=== PATIENT | female | born 1950 | race Caucasian/White ===

== ENCOUNTER 2021-11-03 13:44 | Outpatient (CLI) | payer MEDICARE, BC, SELFPAY ==
[2021-11-03 11:39] LABS: Albumin* 3.8 g/dL (3.3-5.0); Chloride* 100 mmol/L (96-114)
[2021-11-03 11:40] LABS: Potassium* 5.3 mmol/L (3.6-5.1); Sodium* 137 mmol/L (135-149)
[2021-11-03 11:42] LABS: Aspartate Amino Transferase* 21 U/L (12-35); Bilirubin Total* 0.3 mg/dL (0.1-1.5); Blood Urea Nitrogen* 16 mg/dL (7-30); Carbon Dioxide* 30 mmol/L (20-32); Cholesterol* 175 mg/dL (90-199); Creatinine* 0.9 mg/dL (0.5-1.5); Estimated Glomerular Filt Rate 69 ml/min; Glucose* 111 mg/dL (60-115); Total Protein* 6.7 g/dL (6.0-8.3)
[2021-11-03 11:43] LABS: Alanine Aminotransferase* 16 U/L (4-35); Alkaline Phosphatase* 100 U/L (40-150); Calcium* 9.4 mg/dL (8.4-10.6); HDL Cholesterol* 52 mg/dL (>=50); LDL Cholesterol Calculated 102 mg/dL (<100); Triglycerides* 106 mg/dL (40-149)
== END 2021-11-03 13:45 | disposition home or self-care (01) ==
PROVIDERS: PCP Family Medicine; Visit Provider Family Medicine
DX: Z01.419 Encounter for gynecological examination (general) (routine) without abnormal findings (principal); E03.9 Hypothyroidism, unspecified; E78.5 Hyperlipidemia, unspecified; E66.01 Morbid (severe) obesity due to excess calories; R73.01 Impaired fasting glucose; R53.83 Other fatigue
CPT/HCPCS: 80053; 80061; 84443

== ENCOUNTER 2022-02-10 11:49 | Outpatient (CLI) | payer MEDICARE, BC, SELFPAY ==
--- OUTSIDE RECORDS SUMMARY | 2022-02-10 09:54 | XMS_ITS | Continuity of Care Document ---
:1950 Author Organization [facility] Address [address] [address] [place] [address] Phone Care Team Providers Name Role Phone Alexi Lobato MD Unavailable Unavailable Medications Medication Instructions Dosage Effective Status Comments Dates (start - stop) Flovent HFA 44 inhale 1 puff 44 MCG - Active mcg/actuation (44MCG) by Aerosol Inhaler inhalation route 2 times every day ProAir HFA 90 take by Inhalation Not Available - Active mcg/actuation route prn Aerosol Inhaler azelastine 137 mcg spray 1 spray by 1 spray - Active Nasal [place] Aerosol intranasal route 2 times every day in each nostril Windy 180 mg take 1 tablet - Active tablet (180MG) by oral route every day tramadol 50 mg take 1 Tablet 50 MG - Active tablet (50MG) by ORAL route every 6 hours as needed Tylenol PM Extra take 1 Tablet by 1 Tablet - Active Strength 25 mg-500 oral route every mg tablet day at bedtime clonazepam 1 mg take 1.5 Tablet 1.5 MG - Active tablet (1.5MG) by oral route every day simvastatin 10 mg take 1 tablet 10 MG - Active tablet (10MG) by oral route every day in the evening mirtazapine 30 mg take 1 by Oral 1 - Active tablet route every day azelastine 0.05 % instill 1 drop by 1 drop - Active Eye Drops ophthalmic route 2 times every day as needed levothyroxine 137 take 1 tablet 137 MCG - Active mcg tablet (137MCG) by oral route every day Centrum Complete 18 take 1 tablet by 1.00 tablet - Active mg-400 mcg tablet oral route every day with food Citrucel 500 mg take 1 by Oral 1 - Active tablet route every day Vitamin C 500 mg take 1 by Oral 1 - Active chewable tablet route every day ferrous sulfate 325 take 1 tablet 325 MG - Active mg (65 mg iron) (325MG) by ORAL tablet route 3 times every day vitamin E 400 unit take 1 Capsule by 1 Capsule - Active capsule Oral route every day flaxseed oil 1,000 take 1 by Oral 1 - Active mg capsule route every day lptcuyx-paiiymjfw-z take 1 by Oral 1 - Active inc 333 mg-133 mg-5 route every day mg tablet Vitamin D3 400 unit take 1 by Oral 1 - Active capsule route every day omeprazole 20 mg take 1 capsule 20 MG - Active capsule,delayed (20MG) by ORAL release route 2 times every day before a meal CIPRODEX 0.3 %-0.1 instill 4 drop by 4 drop - No Long er % Ear Drops, Susp otic route 2 times Active every day as needed Procedures Procedure Date Ugi Endo; W/bx 1/mx Level Iv-surg Path Gross/micro Colonoscopy Flex; Dx (nov Pro) Ugi Endo; W/bx 1/mx Advance Directives Directive Yes / No Effective Date File Name No Information Encounters Encounter Practice Location Reason(s) Diagnoses Date Provider Provide rs Description For Visit Copied on Encounter [facility] [place] No Luis Alfredo [facility] Information 2-[address] [facility], [address] [address], [address] [place], [facility] [address], [place], [place], [place] [id number], , [place], [place] [id number], tel:[phone]. [phone] tel:[phone] [facility] [place] Gastric/antra Luis Alfredo CUMMINS Ref erring Digestive [facility] l Ulcer [address] Alexi. Provider: [facility], Endoscopy Unspec[facility]op [address] Ulcer W/o [place] MD Singh, [address] [address], [place] [facility] [address], [place], [place], [facility], [address] [id number], Reflux , [place], [place], [place] [id number], [place], [address]. tel:+57 Ulcer W/o [place]. tel:[phone] Bleed tel:[phone] [facility] [place] [facility] Family Hx Nov-0 Walker [facility] Referring Digestive Endoscopy Colon 1 [place]. Provider: [facility], [place] [facility] [address] [facility] [address], [facility] [place], [place], [address] [place] [address], [place], [place], [place] [address] [id number], , [place], [address], [facility] [id number], [place], [address]. tel:+ [place]. tel:[phone] tel:[phone] [facility] [place] No Sep-0 No Referring [facility] Information 7-200 Information Provid er: [facility], [place] [address] [address] [facility] [address], MD Singh, [address] [place], [place], [address] [id number], [facility], [facility], [address]. tel:+ tel:[phone] Family History Family Member Type Diagnosis Age At Onset No Information Payers Payer name Insurance type Covered alliance party ID Authorization(s ) [facility] [id number] Social History Type Description Quantity Date Captured Comments Sex Female Smoking Status No Information Chief Complaint And Reason For Visit No Information Reason For Referral Reason For Referral No Information Plan Of Treatment Date Type Action Status No Information History Of Present Illness Encounter Date Complaint History Of Present I llness No Information Functional Status Date Functional Assessment No Information Instructions Date Instruction Additional Informati on No Information Assessments Type Assessment Date No Information Patient Care Teams Name Effective Dates (start - stop) Status M embers No Information
[2022-02-10 12:02] LABS: Ferritin* 43.5 ng/mL (11.1-264.0)
[2022-02-10 12:16] LABS: Vitamin B12* 608 pg/mL (243-894)
== END 2022-02-10 11:50 | disposition home or self-care (01) ==
PROVIDERS: PCP Family Medicine; Visit Provider Family Medicine
DX: G25.81 Restless legs syndrome (principal); G62.9 Polyneuropathy, unspecified; E66.01 Morbid (severe) obesity due to excess calories; Z68.41 Body mass index [BMI] 40.0-44.9, adult; E78.5 Hyperlipidemia, unspecified; E03.9 Hypothyroidism, unspecified; G47.33 Obstructive sleep apnea (adult) (pediatric); F33.42 Major depressive disorder, recurrent, in full remission; Z13.0 Encounter for screening for diseases of the blood and blood-forming organs and certain disorders involving the immune mechanism
CPT/HCPCS: 82607; 82728

== ENCOUNTER 2022-02-13 12:05 | Outpatient (CLI) | payer MEDICARE, BC, SELFPAY ==
--- OUTSIDE RECORDS SUMMARY | 2022-02-13 12:09 | XMS_ITS | Clinical Summary ---
:1950 Author Organization [employer] Address [address] [place] [address] Care Team Providers Name Role Phone Delphine Batista MD Primary Care Provider [phone] Source Comments You are receiving this document as you are listed as the primary care provider,follow-up provider, or the patient has been referred to you for consultation.This is in compliance with the Medicare and Medicaid EHR Incentive Program,which states Providers who transition their patient to another setting of careor provider of care or refers their patient to another provider of care shouldprovide summarycare record for each transition of care or referral. [employer] Allergies Active Allergy Reactions Severity Noted Date Comments Dust Other, see comments 01/15/2021 Sinus is sues Molds & Smuts Cough 01/15/2021 Sinus issues Other Other, see comments 01/15/2021 Perfumes - eyes water, cough Cat dander - si nus issues Pollen Extract Cough 01/15/2021 Medications Medication Sig Dispensed Refills Start Date End Date Status BUDEPRION XL 300 MG 1 tablet daily 0 Active OR TB24 ASTELIN 137 MCG/SPRAY 2 sprays in the 0 Active NA SOLN morning PROAIR HFA 108 (90 Inhale 2 puffs by 0 Active BASE) MCG/ACT IN AERS mouth every 4-6 hours as needed for breathing difficulties. Do not use more than 12 puffs in 24 hours. TYLENOL PM EXTRA 1 tablet daily 0 Active STRENGTH 500-25 MG OR TABS FLUTICASONE 1 spray twice daily 0 Active PROPIONATE HFA 44 MCG/ACT IN AERO cholecalciferol Take 1 tablet by 0 03/09/2012 Active (VITAMIND3) 2000 mouth daily (every UNITS tablet 24 hours). Indications: PREVENTION OF VITAMIN D DEFICIENCY estrogens, conjugated Insert 1 0 09/18/2013 Active (PREMARIN) 0.625 Applicatorful MG/GM vaginal cream vaginally. oxybutynin Take 10 mg by 0 Activ e (DITROPANXL) 10 MG 24 mouth. hour release tablet Zinc Acetate 25 MG Take 50 mg by 0 Active mouth. Famotidine-Ca Chew and swallow 1 0 10/28/2019 Active Carb-Mag Hydrox Tablet by mouth 10-800-165 MG daily. fexofenadine 0 2019 Active (CECI) 180 MG tablet guaiFENesin (MUCINEX) Take 600 mg by 0 01/13/2021 Active 600 MG 12 hour mouth at bedtime as release tablet needed. Melatonin 5 MG 0 01/13/2021 Acti ve triamcinolone 0 10/28/2019 Activ e (NASACORT AQ) 55 MCG/ACT nasal inhaler mirtazapine (REMERON) 0 12/25/2020 Active 45 MG tablet rOPINIRole (REQUIP) 2 0 01/02/2021 Active MG tablet simvastatin (ZOCOR) 0 12/25/2020 Active 20 MG tablet levothyroxine Take 150 mcg by 0 Active (SYNTHROID) 150 MCG mouth daily. tablet omeprazole (PRILOSEC) Take 1 Capsule (20 90 Capsule 0 10/02/19 22 Active 20 MG capsule mg) by mouth daily. Take 1 hour before a meal. Active Problems Patient Care Coordination Note Formatting of this note might be differe nt from the original. Interactive with Asthma Disease Manageme nt Program: , opt #5, for COPD and Ast hma Problem Noted Date Complication of gastric banding 07/23/2021 Overview: Added automatically from request for lauren saldivar [id number] Dysphagia 07/23/2021 Overview: Added automatically from request for lauren saldivar [id number] Depressive disorder 02/09/2021 Hypothyroidism 02/09/2021 Morbid obesity with BMI of 40.0-44.9, adult 11/06/2015 LAP-BAND surgery status 05/14/2009 Overview: Laparoscopic adjustable gastric band, AP S Removal of adjustable gastric band and a ll it's components - 09/30/2021 Sleep apnea 05/09/2009 Overview: LW Modifier: Severe, AHI 73/hour ; Obstructive Sleep Apnea Hypopnea Resolved Problems Problem Noted Date Resolved Date Obesity 03/09/2012 11/06/2015 Morbid obesity 05/14/2009 03/09/2012 Overview: Obesity Morbid Social History Tobacco Use Types Packs/Day Years Used Date Smoking Tobacco: Never Smokeless Tobacco: Never Alcohol Use Standard Drinks/Week Comments Not Currently 0 (1 standard drink = 0.6 oz pure alcoho l) occasionally Sex Assigned at Date Recorded Female 01/13/2021 5:27 PM CDT Last Filed Vital Signs Vital Sign Reading Time Taken Comments Blood Pressure 126/71 10/01/2021 10:06 AM CDT Pulse 68 10/01/2021 10:06 AM CDT Temperature 36.7 ??C (98 ??F) 10/01/2021 5:49 AM CDT Respiratory Rate 18 10/01/2021 5:49 AM CDT Oxygen Saturation 91% 10/01/2021 10:06 AM CDT Inhaled Oxygen Concentration - - Weight 117.9 kg (260 lb) 10/07/2021 7:51 AM CDT Height 165.1 cm (5' 5) 10/07/2021 7:51 AM CDT Body Mass Index 43.27 10/07/2021 7:51 AM CDT Plan of Treatment Health Maintenance Due Date Last Done Comments Hep C Screening (Preventive 1950 Services) Medicare Annual Wellness 1950 Visit COVID-19 Vaccine (#1) 03/30/1951 Mammogram 09/18/2014 09/18/2013 Cholesterol 05/09/2015 05/09/2010, 10/24/2009 Dexa 2017 Colonoscopy 02/16/2021 02/16/2011 Pneumococcal 65+ Yrs (3) 10/02/2021 10/05/2017, 10/02/2016 Influenza (#1) 2021 12/05/2020, 12/06/2019, 01/23/2019, Additional history exists DTaP/Tdap/Td (3 - Tdap) 10/18/2028 10/18/2018, 04/23/2008 Zoster/Shingles Completed 05/08/2019, 01/30/2019, 02/25/2017, Additional history exists HepA Aged Out No longer eligib le based on patient 's age to complete this topic HepB Aged Out No longer eligib le based on patient 's age to complete this topic Hib Aged Out No longer eligib le based on patient 's age to complete this topic IPV (Polio) Aged Out No longer eligib le based on patient 's age to complete this topic MCV4 Aged Out No longer eligib le based on patient 's age to complete this topic Medical Devices Implanted Type Area Switchboard Clerk Device Shelf Model / Identifier Expiration Date Ser ial / Lot Mesh Bio-A - [id number] DEVICE [employer] 09/05/2023 [id number] / Implanted: Qty: 1 on 09/30/2021 by Devon Cool MD at [facility] / [id number] Insurance Payer Benefit Plan / Subscriber ID Effective Dates Phone Addre ss Type Group MEDICARE MEDICARE [id number] 2017-Presen [phone] [facility] MANAGED CARE t 67 BCBS BCBS BCBS [place] [id number] 2021-Presen [phone] [address] [address] Medicare BLUE t 67 [place] [address] Rosales, Personal/Family Self 1950 [id number] ([address]) [phone] [place], [place] ([place]) [address] Rosales, Personal/Family Self 1950 [id number] [facility] ([place] [place] [address] Advance Directives Latest Code Status on File Code Status Date Activated Date Inactivated Comments Full Code 09/30/2021 12:30 PM 10/01/2021 12:49 PM Care Teams Jet Engine Mechanic Relationship Specialty Start Date End Date Delphine Batista MD PCP - General Family Practice 09/30/211999 [place] [address]
--- OUTSIDE RECORDS SUMMARY | 2022-02-13 12:09 | XMS_ITS | Encounter Summary ---
:1950 Author Organization [employer] Address [address] [place] [address] Care Team Providers Name Role Phone Delphine Batista MD Primary Care Provider [phone] Reason for Visit Reason Comments Follow-up One week S/P Lap Band Remova l Encounter Details Date Type Department Care Team Description 10/07/2021 Telemedicine [facility] Bariatric Sheba Cortez Status [facility] bariatric Surgery & Weight Samantha, surface logging systems logger (Pr imary Dx) Center [address] [place] [address], [address] [place] [address] Social History Tobacco Use Types Packs/Day Years Used Date Smoking Tobacco: Never Smokeless Tobacco: Never Alcohol Use Standard Drinks/Week Comments Not Currently 0 (1 standard drink = 0.6 oz pure alcoho l) occasionally Sex Assigned at Date Recorded Female 01/13/2021 5:27 PM CDT documented as of this encounter Last Filed Vital Signs Vital Sign Reading Time Taken Comments Blood Pressure - - Pulse - - Temperature - - Respiratory Rate - - Oxygen Saturation - - Inhaled Oxygen Concentration - - Weight 117.9 kg (260 lb) 10/07/2021 7:51 AM CDT Height 165.1 cm (5' 5) 10/07/2021 7:51 AM CDT Body Mass Index 43.27 10/07/2021 7:51 AM CDT documented in this encounter Patient Instructions Patient InstructionsSheba Cortez RN - 10/07/2021 7:52 AM CDT Congratulations on your many successes and keep up the hard work! Continue discharge medications as ordered. Follow instructions located on the after visit summary given to you when you were discharged from the hospital. Continue to work toward your protein goals. You will not be able to get your protein needs met due to small food volumes so you must include protein supplements as instructed to meet your goal. Continue pushing fluids to 48-64 ounces daily. -If you are experiencing nausea, this may be related to dehydration. Contact your provider and discuss. Keep incisions clean and dry after washing daily with soap and water. Some abdominal bruising is normal. Notify your provider if you're bruising increases or if you notice signs of an infection (reviewed today). Increase activity as tolerated to a goal of 30 minutes daily, 5 times per week as your stamina and endurance permit. Refer to your care guide often as resource. Verify you have your scheduled appointments with the dietitian and RN before after your visit today. A reminder: No non-urgent surgical procedures or long distance travel within 30 days of weight loss surgery. No lifting over 20 lbs for minimum 4 weeks. fSupport Group: Live virtual support groups are now available. To join our e-mail distribution list and receive updates on date, time, and topics of the support group send us an e-mail at [email or web address]. Call with questions. Sheba Cortez RN 7:51 AM 10/07/2021 documented in this encounter Progress Notes Sheba Cortez RN - 10/07/2021 10:30 AM CDT Pt S/P Adjustable Gastric Band removal and Hiatal Hernia Repair on 09/30/[address] Cool. Pt reports she has been tolerating fluids without difficulty this past week; advanced to soft/mashed foods today. She reports she was able to eat eggs for breakfast with no difficulty. Incisions inspected; all CDI with dermabond intact as well. No redness, swelling noted to incisional areas. Pt reports that roshan had some L shoulder pain/discomfort when up/active. Discussed with pt, referred pain from her hernia repair. Recommended that pt slow down her activity, should she feel the L shoulder pain. Pt denies any N/V since surgery, and no reports of elevated temp at this time. Discussed with pt MWM as an option following the removal of her lap band. Pt plans to wait for a period before deciding whether ornot to pursue MWM in clinic. Balling Head Tender will reach out to pt in one month to discuss advancing her exercising/activity. Pt encouraged to call sba underwriter, should she have any questions/concerns. Pt agreed to plan documented in this encounter Plan of Treatment Not on filedocumented as of this encounter Visit Diagnoses Diagnosis Status post bariatric surgery - Primary Bariatric surgery status documented in this encounter Care Teams Solicitor Patent Relationship Specialty Start Date End Date Delphine Batista MD PCP - General Family Practice 09/30/211999 [place] [address] documented as of this encounter
--- OUTSIDE RECORDS SUMMARY | 2022-02-13 12:09 | XMS_ITS | Encounter Summary ---
:1950 Author Organization [employer] Address [address] [place] [address] Care Team Providers Name Role Phone Delphine Batista MD Primary Care Provider Reason for Visit Reason Comments Follow-up Encounter Details Date Type Department Care Team Description 11/06/2021 Telephone [facility] Bariatric Surgery & Sheba Cortez RN Follow-up Weight Center [address] [facility], [address] [place] [address] Social History Tobacco Use Types Packs/Day Years Used Date Smoking Tobacco: Never Smokeless Tobacco: Never Alcohol Use Standard Drinks/Week Comments Not Currently 0 (1 standard drink = 0.6 oz pure alcoho l) occasionally Sex Assigned at Date Recorded Female 01/13/2021 5:27 PM CDT documented as of this encounter Nursing Notes Sheba Cortez RN - 11/06/2021 9:54 AM CDT Pt S/P removal of her Adjustable Gastric Lap Band on 09/30/[address] Cool. At that time, pt also had HH repair. RN spoke with pt to see how she is feeling since her one week post op appt. Pt states she is feeling more like my old self again, and I am much more active over past two weeks. Discussed with pt that she will continue on her 20 lb wt restriction through 11/10/21, and after that, her wt restrictions will be lifted, but she should ease into cardio/wts again slowly, which pt agreed to do. Pt instructed to call with any questions/concerns moving forward. Reminded pt that she can schedule appt with providers in clinic for MWM, should that be something she wishes to do. documented in this encounter Plan of Treatment Not on filedocumented as of this encounter Visit Diagnoses Not on filedocumented in this encounter Care Teams Psychologist Private Practice Relationship Specialty Start Date End Date Delphine Batista MD PCP - General Family Practice 09/30/211999 [place] [address] documented as of this encounter
--- OUTSIDE RECORDS SUMMARY | 2022-02-13 12:09 | XMS_ITS | Clinical Summary ---
:1950 Author Organization [facility] [place] [address] Care Team Providers Name Role Phone Delphine Batista MD Primary Care Provider [phone] Allergies Active Allergy Reactions Severity Noted Date Comments House Dust Cough 09/24/2014 Mold Extracts Cough 09/24/2014 Tree Pollen-White [place]ch (Betula Verrucosa),Std Cough 09/24/2014 Medications Medication Sig Dispensed Refills Start Date End Date Status MULTI-VITAMIN ORAL TAB one tablet daily ? 0 01/20/2001 Active fexofenadine (CECI) TAKE 1 TABLET BY 90 tablet 1 10/28/2010 Active 180 mg MOUTH DAILY WITH tabletIndications: A MEAL Allergic conjunctivitis azelastine 0.05% 1 Drop 2 times 1 Bottle 0 09/20/2012 Active ophthalmic (OPTIVAR) daily. 0.05 % ophthalmic solution cholecalciferol Take 1 tablet by 0 07/25/2013 Active (VITAMIN D) 1,000 unit mouth once tablet daily. albuterol HFA (PROAIR Inhale 1 Puff by 1 Inhaler 11 06/29/2014 Active HFA) 90 mcg/actuation mouth every 4 inhalerIndications: hours if needed. Unspecified asthma(493.90) rOPINIRole (REQUIP) 1 Take 1 tablet by 90 tablet 3 09/24/2014 Active mg tabletIndications: mouth at Restless legs syndrome bedtime. (RLS) simvastatin (ZOCOR) 10 Take 1 tablet by 90 tablet 3 09/24/2014 Active mg tabletIndications: mouth at Mixed hyperlipidemia bedtime. levothyroxine Take 1 tablet by 90 tablet 3 09/24/2014 Active (SYNTHROID) 137 mcg mouth once tabletIndications: daily. Hypothyroidism, unspecified hypothyroidism type fluticasone (50 mcg per Inhale 1-2 1 Bottle 0 09/24/2014 Active actuation) nasal Sprays into both solution nostrils once (FLONASE)Indications: daily. Allergic rhinitis, unspecified allergic rhinitis type mometasone-formoterol Inhale 2 Puffs 1 Inhaler 0 03/14/2015 Active (DULERA) 100-5 by mouth 2 times mcg/actuation inhaler daily. benzonatate (TESSALON Take 1 capsule 30 capsule 0 03/14/2015 Active PERLES) 100 mg by mouth 3 times capsuleIndications: daily if needed Cough for Cough. mirtazapine (REMERON) Take 1 tablet by 90 tablet 1 04/24/2015 Active 30 mg mouth at tabletIndications: Mild bedtime. major depression (HC) ferrous sulfate, 65 mg TAKE 1 TABLET BY 90 tablet 0 03/03/2016 Active elemental, MOUTH ONCE DAILY tabletIndications: Iron WITH A MEAL deficiency anemia Active Problems Problem Noted Date Colon cancer screening 02/15/2011 Unspecified hypothyroidism 07/03/2009 CKD (chronic kidney disease) stage 3, GFR 30-59 ml/min 06/25/2009 Morbid obesity 11/14/2008 Ganglion cyst 11/14/2008 Allergic conjunctivitis 10/03/2008 Hypothyroid 08/09/2008 DARIEN (iron deficiency anemia) 08/09/2008 Overview: Resolved with hiatal hernia repair. Did require transfusion and iron supplementation Mixed hyperlipidemia 05/15/2008 Unspecified asthma(493.90) 01/24/2008 GERD Unspecified sleep apnea Overview: Cannot tolerate CPAP Diagnosed in 2004 Hypertension Restless legs syndrome (RLS) Family hx-colon cancer Overview: Last scope 2006, neg due 5 years Resolved Problems Problem Noted Date Resolved Date Acute bronchitis 01/24/2008 08/09/2008 Unspecified sleep apnea 12/15/2004 02/12/2010 DISPLACEMENT LUMBAR INTERVERTEBRAL DISC WITH FUSION 09/200112/15/2004 08/09/2008 DYSPNEA ON EXERTION 01/24/2008 FATIGUE 01/24/2008 OBESITY 11/14/2008 SCIATICA - RIGHT LEG RESOLVED 01/24/2008 Unspecified gastritis and gastroduodenitis without mention 08/09/2008 of hemorrhage Overview: Due to NSAIDs and had anemia Other and unspecified hyperlipidemia Chronic rhinitis 08/09/2008 Immunizations Name Administration Dates Next Due Influenza A (H1N1), Inactivated (Age >=3 03/14/2009 Years) Influenza, IIV3 (Age >=3 years) 11/19/2011, 03/02/2001, 04/1997 Tdap 04/23/2008 Zoster (Zostavax-ZVL, live) 09/08/2012 Family History Medical History Relation Name Comments Cancer-prostate Brother 1 Cancer-prostate Brother 2 Cancer-colon Mother Hypertension Mother Genetic Other Mother at a ge 68 from colon cancer. Father at a ge 89 from pneumonia. He had a history of an PA. She has 5 siblings with no known cardiac disease. Cancer-colon Sister 1 Cancer No Family History Cancer-breast No Family History Cancer-ovarian No Family History Relation Name Status Comments Brother 1 Alive DM 2 Brother 2 Alive Brother 3 Alive Daughter Alive Father (Age 89) PA Mother (Age 68) colon cancer Other Sister 1 Alive Sister 2 Alive Son 1 Alive Son 2 Alive Social History Tobacco Use Types Packs/Day Years Used Date Never Smoker Smokeless Tobacco: Never Used Tobacco Cessation: Counseling Given: Yes Alcohol Use Standard Drinks/Week Comments Yes 0 (1 standard drink = 0.6 oz pure alcoho l) 1 glass laine weekly Alcohol Habits Answer Date Recorded How often do you have a drink containing alcohol? Not asked How many drinks containing alcohol do you have on Not asked a typical day when you are drinking? How often do you have six or more drinks on one Not asked occasion? Comment: 1 glass laine weekly 09/18/2013 Sex Assigned at Date Recorded Not on file Obstetrics History Para Term AB IAB SAB Ectopic Multiple Living Live Births 5 3 3 2 2 3 Date Outcome GA Total Labor/2nd/3rd Weight Sex Delivery Anes PTL Yeny A 1 A5 Name Clin Labor Term Term Term SAB SAB Last Filed Vital Signs Vital Sign Reading Time Taken Comments Blood Pressure 144/84 04/09/2021 9:23 AM LEARNING AND DEVELOPMENT COORDINATOR Pulse 67 10/28/2021 3:44 PM CDT Temperature 36.7 ??C (98 ??F) 02/05/2016 10:27 AM LEARNING AND DEVELOPMENT COORDINATOR Respiratory Rate 18 03/14/2015 11:36 AM LEARNING AND DEVELOPMENT COORDINATOR Oxygen Saturation 95% 10/28/2021 3:44 PM CDT Inhaled Oxygen Concentration - - Weight 117.9 kg (260 lb) 10/28/2021 3:44 PM CDT Height 165.1 cm (5' 5) 09/24/2014 8:26 AM CDT Body Mass Index 43.27 09/24/2014 8:26 AM CDT Plan of Treatment Health Maintenance Due Date Last Done Comments Depression screening for age 12+ 1964 BMI (ht and wt on same day) for 1970 age 18+ Hepatitis C screening for age 0709/27/1970 18-79 Zoster (shingles) series for age 0811/03/2012 09/08/2012 50+ (2 of 3) Colonoscopy through age 75 08/22/2015 08/21/2010 (Completed outside of [facility]), 01/27/2006, 03/29/2005 (Completed outside of [facility]) Mammogram for age 45-75 09/21/2015 09/20/2014, 09/18/2013, 08/31/2012, Additional history exists DEXA/DXA scan for age 65+ 2017 07/04/2009, 05/01/2008 Medicare Wellness for age 65+ 2017 Pneumococcal series for age 65+ (1 2017 - PCV) Tetanus booster 04/23/2018 04/23/2008 Lipids for age 45-75 09/25/2019 09/24/2014, 09/18/2013, 09/08/2012, Additional history exists COVID-19 vaccine series (4 - 03/25/2021 01/28/2021, 021, Booster for Moderna series) 05/22/2020 Influenza for age 65+ 11/27/2021 11/19/2011, 03/14/2009, 03/02/2001, Additional history exists Tdap Completed 04/23/2008 Results Not on filefrom Last 3 Months Insurance Payer Benefit Plan / Subscriber ID Effective Dates Phone Addre ss Type Group BLUE CROSS MR BLUE [employer]OSS [id number] 2021-Present [address] [address] [place] [phone] Advance Directives Documents on File Type Date Recorded Patient Tag Press Operator Explanati on Healthcare Directive 05/22/2015 5:04 PM 2015 Healthcare Directive 05/16/2015 4:25 PM Healthcar e Directive Latest Code Status on File Code Status Date Activated Date Inactivated Comments Full Code 02/16/2011 7:10 AM 02/17/2011 2:12 AM Care Teams Laundry Equipment Operator Relationship Specialty Start Date End Date Delphine Batista MD PCP - General Family Practice 10/28/211999 [place] [address]
--- OUTSIDE RECORDS SUMMARY | 2022-02-13 12:09 | XMS_ITS | Encounter Summary ---
:1950 Author Organization [facility] Address [address], [place] [address] Care Team Providers Name Role Phone Nancy Coffey Primary Care Provider Encounter Details Date Type Department Care Team Description 07/28/2021 Notes/Orders [facility] [address] [place], [place] [id number] Social History Tobacco Use Types Packs/Day Years Used Date Smoking Tobacco: Never Smokeless Tobacco: Never Alcohol Use Standard Drinks/Week Comments Yes 0 (1 standard drink = 0.6 oz pure alcoho l) occasionally Sex Assigned at Date Recorded Female 01/13/2021 5:27 PM CDT documented as of this encounter Plan of Treatment Not on filedocumented as of this encounter Visit Diagnoses Not on filedocumented in this encounter Care Teams Poultry Scalder Relationship Specialty Start Date End Date Nancy Coffey MBBS PCP - General 11/09/12 09/29/21 [address] [address] [place] [id number] documented as of this encounter
--- OUTSIDE RECORDS SUMMARY | 2022-02-13 12:09 | XMS_ITS | Encounter Summary ---
:1950 Author Organization [employer] Address [address], [place] [address] Care Team Providers Name Role Phone Delphine Batista MD Primary Care Provider [phone] Reason for Visit Auth/Cert Specialty Diagnoses / Procedures Referred By Contact Refer red To Contact Diagnoses Complication of gastric banding Dysphagia, unspecified type Procedures LAPAROSCOPIC REMOVAL OF ADJUSTABLE GASTRIC BAND Referral ID Status Reason Start Date Expiration Date Visits Requ ested Visits Authorized [id number] 1 1 Encounter Details Date Type Department Care Team Description 09/30/2021 [facility] Devon Cool, Lavelle APAROSCOPIC REMOVAL OF Room ADJUSTABLE GASTRIC [address] [facility] BAND,UPPER ENDOSCOPY, [place], [place] HI ATAL HERNIA REPAIR [id number] WITH MESH. [phone] (Wo rk) Social History Tobacco Use Types Packs/Day Years Used Date Smoking Tobacco: Never Smokeless Tobacco: Never Alcohol Use Standard Drinks/Week Comments Yes 0 (1 standard drink = 0.6 oz pure alcoho l) occasionally Sex Assigned at Date Recorded Female 01/13/2021 5:27 PM CDT documented as of this encounter Last Filed Vital Signs Vital Sign Reading Time Taken Comments Blood Pressure 152/88 09/30/2021 6:03 AM CDT Pulse 73 09/30/2021 6:03 AM CDT Temperature 36.8 ??C (98.2 ??F) 09/30/2021 6:03 AM CDT Respiratory Rate 16 09/30/2021 6:03 AM CDT Oxygen Saturation 96% 09/30/2021 6:03 AM CDT Inhaled Oxygen Concentration - - Weight 117.7 kg (259 lb 6.4 oz) 09/30/2021 6:03 AM CDT Height 165.1 cm (5' 5) 09/30/2021 6:03 AM CDT Body Mass Index 43.17 09/30/2021 6:03 AM CDT documented in this encounter Discharge Summaries Siri Mcgee PA-C - 10/01/2021 10:44 AM CDT Hospital Discharge Summary Bariatric Surgery Admission Date: 09/30/2021 Discharge Date: 10/01/2021 PATIENT HISTORY: Age: 71 y.o. years. Gender: female Vital Signs: BP 126/71 Pulse 68 Temp 98 ??F (36.7 ??C) (Oral) Resp 18 Ht 5' 5 (165.1 cm) Wt 259 lb 6.4oz (934311 g) LMP (LMP Unknown) SpO2 (!) 91% BMI 43.17 kg/m?? DISCHARGE DIAGNOSES: Patient Active Problem List Diagnosis ??? Sleep apnea ??? LAP-BAND surgery status ??? Morbid obesity with BMI of 40.0-44.9, adult (HRC) ??? Depressive disorder ??? Hypothyroidism ([facility]C) ??? Complication of gastric banding ??? Dysphagia Procedures performed during this visit Laparoscopic removal of adjustable gastric band and all it's components, hiatal hernia repair with mesh (Surgeon: Dr. Cool) Intraoperative Complications: Perforation or laceration during procedure Perforation of stomach Postoperative Complications: None HOSPITAL COURSE: The patient was [facility] and underwent surgery, then transferred from the [address] without incident. Pt. was initiated on a clear liquid diet on the evening of surgery. UGI with gastrografin was obtained on POD#1 and was unremarkable. Diet advanced to full liquids. Ultimately the pt. progressed without incident. On POD #1, pt. was tolerating fluids, vitals stable, afebrile, urine output satisfactory, and pt. was ambulating without difficulty. Pt. met criteria for discharge on POD #1. DISCHARGE PLAN: Observations, precautions, diet, activity, follow-up, special instructions and discharge medications were reviewed in detail with the patient and provided in written form. Medications were reviewed and updated on the Patient Health Profile in the electronic medical record. Please see discharge instruction form and the electronic medical record for more details. Pt. advised to follow up with primary care provider for medical issue follow up. Follow-up: Patient is to follow up via appointment with the bariatric surgery department as previously scheduled. documented in this encounter Discharge Instructions Discharge Instr - Other Siri Joel PA-C - 09/30/2021 10:55 AM CDT Home on a Full liquid diet with protein supplements for 1 week Full Liquid Diet Only liquids and foods that are liquid at room temperature. - Fruit juices such as: Apple juice Grape juice Cranberry juice Nectars Vegetable juice (V-8??) - Broth, bouillon, strained cream soups - Strained cooked cereals (Cream of Wheat??) - Coffee, tea, Fernie-Aid??, soda, water - Fruit ices (without chunks of fruit), Jell-O??, hard candy, popsicles made from fruit juice - Custards, ice cream, pudding, sherbet, water ice - Milk, milk shakes, eggnog, yogurt (without seeds or whole fruit pieces) Avoid: Soups with vegetables, noodles, rice, fresh or frozen fruit. Avoid carbonated drinks and alcohol. Avoid solid foods, gum or hard candy. - Choose lactose-free liquids if you are lactose intolerant. Examples include acidophilus milk, lactose-free milk, soy milk, or lactose free liquid nutrition supplements. -You may need other diet changes if you have another medical condition such as diabetes, high blood pressure, or heart disease. For example- you may need to choose sugar-free, low-sodium, or low-fat foods as part of your full liquid diet. documented in this encounter Medications at Time of Discharge Medication Sig Dispensed Refills Start Date End Date ASTELIN 137 MCG/SPRAY NA 2 sprays in the 0 SOLN morning BUDEPRION XL 300 MG OR 1 tablet daily 0 TB24 cholecalciferol Take 1 tablet by mouth 0 03/09/20 12 (VITAMIND3) 2000 UNITS daily (every 24 tablet hours). Indications: PREVENTION OF VITAMIN D DEFICIENCY estrogens, conjugated Insert 1 Applicatorful 0 (PREMARIN) 0.625 MG/GM vaginally. vaginal cream Famotidine-Ca Carb-Mag Chew and swallow 1 0 10/27 Hydrox 10-800-165 MG Tablet by mouth daily. fexofenadine (CECI) 0 2019 180 MG tablet FLUTICASONE PROPIONATE 1 spray twice daily 0 HFA 44 MCG/ACT IN AERO guaiFENesin (MUCINEX) Take 600 mg by mouth 0 12/27 600 MG 12 hour release at bedtime as needed. tablet levothyroxine Take 150 mcg by mouth 0 (SYNTHROID) 150 MCG daily. tablet Melatonin 5 MG 0 01/13/2021 mirtazapine (REMERON) 45 0 12/25/2020 MG tablet omeprazole (PRILOSEC) 20 Take 1 Capsule (20 mg) 90 Capsule 0 10/01/2021 MG capsule by mouth daily. Take 1 hour before a meal. oxybutynin (DITROPANXL) Take 10 mg by mouth. 0 10 MG 24 hour release tablet PROAIR HFA 108 (90 BASE) Inhale 2 puffs by 0 MCG/ACT IN AERS mouth every 4-6 hours as needed for breathing difficulties. Do not use more than 12 puffs in 24 hours. rOPINIRole (REQUIP) 2 MG 0 01/02/2021 tablet simvastatin (ZOCOR) 20 0 12/25/2020 MG tablet triamcinolone (NASACORT 0 10/28/2019 AQ) 55 MCG/ACT nasal inhaler TYLENOL PM EXTRA 1 tablet daily 0 STRENGTH 500-25 MG OR TABS Zinc Acetate 25 MG Take 50 mg by mouth. 0 documented as of this encounter Progress Notes Chloe Arechiga RN - 10/01/2021 10:30 AM CDT DISCHARGE O: Patient safely discharged to home. D: Patient is alert and oriented x 4. Pt up independently . Discharge criteria met. Vaccines addressed prior to discharge. A: Discharge instructions and medications reviewed and given to patient. Prescriptions filled by [facility] pharmacy. Belongings checklist reviewed with patient and belongings sent. Care plan issues addressed and education record updated. R: Patient verbalizes understanding and teaches back discharge instructions. Patient discharged by: wheelchair with staff. Siri Mcgee PA-C - 10/01/2021 9:00 AM CDT DAILY PROGRESS NOTE Admit Date: 09/30/2021 SUBJECTIVE: Patient has no complaints. Patient denies abdominal pain, nausea, vomiting. They are tolerating sipsof clears and ambulating without difficulty. OBJECTIVE: Vitals: Vital Signs Temp: 98 ??F (36.7 ??C), Pulse: 66, Resp: 18, SpO2: 96 %, BP: (!) 147/95, O2 Device: room air Estimated body mass index is 43.17 kg/m?? as calculated from the following: Height as of this encounter: 5' 5 (165.1 cm). Weight as of this encounter: 259 lb 6.4 oz (604811 g). I/O last 3 completed shifts: In: 2576 [Oral:780; IV:1796] Out: 1120 [Urine:1100] General: NAD Abdomen: soft, non-tender Incision(s): clean, dry, intact Imaging: UGI 10/01/21 FINDINGS: The patient swallowed Gastrografin without difficulty. The esophagus is unremarkable in appearance. There is esophageal dysmotility noted. No hiatal hernia or gastroesophageal reflux is identified. No extravasation of contrast is identified. The stomach, duodenal bulb and sweep are unremarkable. No abnormal intrinsic or extrinsic masses are present. ?? IMPRESSION: No evidence for leak. ASSESSMENT/PLAN: Active problems: Patient Active Hospital Problem List: Sleep apnea (05/09/2009) LAP-BAND surgery status (05/14/2009) Morbid obesity with BMI of 40.0-44.9, adult (C) (11/06/2015) Depressive disorder (02/09/2021) Hypothyroidism (HRC) (02/09/2021) Complication of gastric banding (07/23/2021) Dysphagia (07/23/2021) POD #1 s/p removal of adjustable gastric band and all it's components, hiatal hernia repair with mesh, doing well. Plan: UGI unremarkable Okay to advance to full liquids Discharge this AM Associated attestation - Devon Cool MD - 10/01/2021 2:44 PM CDT Addendum: I have seen and evaluated this patient and discussed their management with Siri Mcgee PA-C. I reviewed the note and agree with the documented findings, assessment, and plan of care. Lorelei reports pain well controlled, no nausea. Tolerating clears. Exam: Gen: awake, alert, NAD Abd: soft, nondistended, appropriately tender, incisions c/d/i A/P: POD# 1 S/P lap band removal, repair of hiatal hernia Doing well Encourage up out of bed, ambulate Encourage full liquids Anticipate discharge later today MD Mey [facility] Department of General Surgery Elena Gonsalves - 10/01/2021 6:48 AM CDT SURGERY PROGRESS NOTE Patient Name: Mindi Caba Date of : 1950 Date of Service: 10/01/21 POD #1 s/p laparoscopic gastric band removal with hiatal hernia repair SUBJECTIVE Pain well controlled. No nausea or vomiting. She has not had a bowel movement and is not passing flatus. She has ambulated several times overnight to urinate. Incisions are clean and dry with ecchymosis but no erythema, excessive swelling, or hematoma. OBJECTIVE Temp (24hrs), Min:36 ??C (96.8 ??F), Max:36.8 ??C (98.2 ??F) BP (!) 147/95 Pulse 66 Temp 36.7 ??C (98 ??F) (Oral) Resp 18 Ht 1.651 m (5' 5) Wt 117.7 kg (259 lb 6.4 oz) LMP (LMP Unknown) SpO2 96% BMI 43.17 kg/m?? Intake/Output Summary (Last 24 hours) at 10/01/2021 0648 Last data filed at 10/01/2021 0551 Gross per 24 hour Intake 2576 ml Output 1120 ml Net 1456 ml General: alert, interactive, appropriate, pleasant Chest: breathing nonlabored on room air Abd: soft, nondistended, mildly tender to palpation throughout. Incisions c/d/i. Extremities: no pedal edema. Labs: Creatinine was elevated at 1.29 and GFR was down at 45 at 13:08 on 09/30. Continue to monitor along with urine output. ASSESSMENT/PLAN: 71 y.o. female POD#1 s/p laparoscopic gastric band removal with hiatal hernia repair GI/FEN: Continue on clear liquids, IVF. Anticipate performing FL UGI today. : Monitor urine output, GFR, creatinine Activity: Continue ambulating Ppx: Anticipate starting [facility] Elena Gonsalves, Medical Student 10/01/2021, 6:48 AM Elena Huntley RN - 09/30/2021 12:51 PM CDT POST-OP O: Patient will have a stable post-op period. D: Pt arrived to room 415/415 -01, at 1240. Patient is alert. Initial Vital Signs: Temp: 36.7 ??C (98.1 ??F) (09/30/21 1244) Pulse: 84 (09/30/21 1244) Resp: 14 (09/30/21 1244) BP: (!) 168/95 (Notify to RN) (09/30/21 1246) SpO2: 96 % (09/30/21 1244) Pain rated at: 2, 3. See Assessment and Doc Flowsheets for equipment and lines/drains. Dressing is clean, dry, intact. A: Monitor vital signs and assess patient per protocol. Patient oriented to bed controls and call lights. Discussed plan of care with patient. See Education Record. R: Patient settled to room. Will continue to monitor. Elena Hopper RN 09/30/2021, 12:52 PM documented in this encounter H&P Notes Devon Cool MD - 09/30/2021 7:12 AM CDT Surgery Update for Preop History and Physical For 09/30/2021 scheduled procedure Update to H&P includes: Patient and/or family denies any health changes since the H&P This patient has been evaluated by me today and has been found to be a suitable candidate for surgery. 09/30/2021 Source Note - ProviderTiffany MD - 09/17/2021 12:00 AM CDT documented in this encounter Procedure Notes Devon Cool MD - 09/30/2021 10:29 AM CDT [facility] BARIATRIC SURGERY Operative Report PATIENT NAME: Mindi Caba DATE: 09/30/2021 AGE: 71 y.o. : 1950 Preoperative diagnosis: Complication of gastric band Postoperative diagnosis: Complication of adjustable gastric band, hiatal hernia Procedures: 1) Laparoscopic removal of gastric band, subcutaneous port and all components. 2) Repair of recurrent hiatal hernia 2) Intraoperative EGD Surgeon: Devon Cool M.D. Asst.: Siri Mcgee PA-C, as no qualified resident available. The MICHELLE assisted in obtaining adequate surgical exposure, controlling bleeding and ligating blood vessels. Anesthesia: General Estimated blood loss: Minimal Specimens: Band and components Complications: None Indication: Mindi Caba is a 71 y.o. yr old female who previous had a band placed for morbid obesity. She emains morbidly obese and she has suffered additional complication with reflux and dysphagia. At this time the patient is not interested in conversion to another weight loss procedure. Operative findings: Gastric band removed without difficulty. Incidental injury to gastric fundus, repairs with single firing of linear stapler. Recurrent hiatal hernia repair with posterior cruropexy and bioa mesh reinforcement. Description of procedure: Informed consent was obtained. The patient was brought to the operating room and placed in a supine position. Anesthesia was induced. Antibiotics were given. The abdomen was prepped with ChloraPrep anddraped with sterile drapes. We began by making a 4 cm incision over the port site, this incision wascarried down to the port with blunt dissection and electrocautery. The port was exposed from its fibrous capsule and grasped. The sutures holding the port were removed. The port was retracted from the wound and the tubing cut at a lola to ensure all components removed at the end of the case. The fibrous capsule was excised with electrocautery. A veress needle was placed into the abdominal cavity at the LUQ and the abdomen was insufflated withcarbon dioxide gas. A camera was inserted through a 5 mm trocar just superior to the umbilicus and the abdomen was inspected. A 5 mm port was placed in the left upper quadrant and a 12 mm trocar in theright mid abdomen. A right lateral port was placed for the liver retractor and the left lobe of liver was elevated. A final 5 mm port was placed in RUQ. The band was freed from it???s attachments and the band was unbuckled. The band was removed from around the stomach. The band was removed from the 12mm trocar site. In the course of taking out the band and breaking up scar a small mucosal injury was noted in the gastric fundus. This was closed with a single firing of a linear stapler with a blue load. The tubing connected to the port and the tubing from the band were aligned on the back table and our lola was complete indicated complete removal of components. This was confirmed with laparoscopy. We noted a recurrent hiatal hernia. The scarred remnant of pars flaccida was opened with the Harmonic scalpel. This revealed the right olegario and after careful dissection of old scar and suture material a moderate sized hiatal hernia. The right olegario was skeletonized and the hernia sac was developed off of the olegario. We continued to reduce and skeletonize the hernia sac out of the mediastinum and over tothe left olegario. We then cleared angle of his and provided exposure of the left olegario. The esophagus was skeletonized off the left olegario and our dissection was met anteriorly. We then developed a posterioresophageal window and completed our posterior dissection. The remainder of the hernia sac was was reduced and this was excised and passed off the field. Adequate esophageal length was obtained using blunt dissection around the esophagus up in to the mediastinum. Satisfied with our esophageal length, aposterior cruroplasty was performed using interrupted 2-0 ethibond sutures, leaving adequate room atthe hiatus for the esophagus. A gore bioA mesh was then configured into a modified U configuration and each limb of the U was secured to the right and left olegario respectively with 2-0 silk suture. The mesh was further secured to the diaphragm with vistacel sealant. Intraoperative EGD was performed and revealed intrabdominal position of GE junction with only mild constriction in the proximal stomach at site of prior band. Hemostasis was ensured. The liver retractor was removed. The fascial defect at the 12 mm trocar site was closed with 0 Vicryl suture. Skin incisions were all closed with 4-0 Monocryl subcuticular stitches. Dermabond was applied. All sponge, needle, and instrument counts were reported correct. The patient tolerated the procedure well without complication. I was present for all components of the procedure. Devon Cool MD documented in this encounter Plan of Treatment Not on filedocumented as of this encounter Procedures Procedure Name Priority Date/Time Associated Comments Diagnosis FL UGI W Routine 10/01/2021 8:16 Results for this GASTROGRAFIN W KUB AM CDT procedure are in the results section. CREATININE / GFR Routine 09/30/2021 1:08 Results for this PM CDT procedure are i n the results section. SURGICAL PATHOLOGY Routine 09/30/2021 10:12 Complication of Re sults for this AM CDT gastric banding procedure are in Dysphagia, the results unspecified type section. LAPAROSCOPIC 09/30/2021 7:29 Complication of REMOVAL / REVISION AM CDT gastric vita ng OF ADJUSTABLE Dysphagia, GASTRIC BAND unspecified type ECG 12 LEAD Specified Time 09/30/2021 6:25 Results fo r this INPATIENT AM CDT procedure are i n the results section. BB DRAW AND HOLD STAT 09/30/2021 6:06 Results for this AM CDT procedure are i n the results section. HEMOGLOBIN, BLOOD STAT 09/30/2021 6:06 Results for this AM CDT procedure are i n the results section. documented in this encounter Results FL UGI W Gastrografin W KUB (10/01/2021 8:16 AM CDT) Anatomical Region Laterality Modality Abdomen Radio Fluoroscopy Specimen (Source) Anatomical Collection Method Collection Time Re ceived Time Location / / Volume Laterality 10/01/2021 7:41 AM CDT Impressions 10/01/2021 8:50 AM CDT COMPARISON: ??None. FINDINGS: ??The patient swallowed Gastro grafin without difficulty. ??The esophagus is unremarkable in appearance. ??There is esophageal dysmotility noted. No hiatal hernia or gastroesophageal reflux is identified. ??No extravasation of contra st is identified. The stomach, duodenal bulb and sweep are unremarkable. No abnormal intrinsic or extrinsic masses are present. IMPRESSION: ??No evidence for leak. Procedure Note Leni Fabian MD - 10/01/2021Formattin g of this note might be different from the original. IMPRESSION COMPARISON: None. FINDINGS: The patient swallowed Gastrogr afin without difficulty. The esophagus is unremarkable in appearance. There is esophageal dysmotility noted. No hiatal hernia or gastroesophageal reflux is identified. No extravasation of contrast is identified. The stomach, duodenal bulb and sweep are unremarkable. No abnormal intrinsic or extrinsic masses are present. IMPRESSION: No evidence for leak. Siri Mcgee PA-C RAD FL (ABNORMAL) Creatinine / GFR (09/30/2021 1:08 PM CDT) [facility] Method Time Signature Creatinine 1.29 (H) 0.55 - 09/30/2021 [facility] 1.02 mg/dL 1:39 PM CDT LABORATORY GFR, Estimated 45 (L) >60 09/30/2021 [facility] mL/min/1.7 1:39 PM CDT LABORATORY 3m2 Specimen Anatomical Collection Method / Collection Time Recei bree Time (Source) Location / Volume Laterality Blood Venipuncture / 09/30/2021 1:08 09/30/2021 1:12 Unknown PM CDT PM CDT Narrative [facility] - 09/30/2021 1:39 P M CDT The National Kidney Disease Education Pr ogram suggests measuring Cystatin C in patients with eGFRcrea of 45 to 59 ml/mi n/1.73^2 who do not have other markers of kidney damage (i.e. elevated urine Album in/Creatinine Ratio or a prior Cystatin C confirming the presence of chronic kidne y disease). Devon Cool MD LAB_1 Performing Organization Address City/State/ZIP Code Phon e Number [facility] [address] [place] [address] Surgical Path (09/30/2021 10:12 AM CDT) Component Value Ref Test Analysis Performed At [facility] gist Range Method Time Signature Case Report Surgical Pathology ?Case: [id number] ? 10/03/2021 [facility] Authorizing Provider: ??Devon Hudson MD ? Collected: ? 09/30/2021 1012 ? 4:44 PM CDT LABORAT ORY Ordering Location: ? [facility] ?? Received: ?09/30/2021 1021 ? Pathologist: ? Chelo John MD ? Specimen: ?Stomach, Camryn bjorn band and its components ? FINAL A. Stomach, gastric band, removal : 10/2021 [facility] Electronically DIAGNOSIS phlebotomy tech identified (gross examination only) 4:44 PM CDT LABORATORY signed by Heather John MD on 2021 at 4:44 PM Clinical Complication of gastric banding 10/04/19 [facility] Information Dysphagia, unspecified type 4:44 PM CD T LABORATORY Gross A: 10/03/2021 [facility] Description The specimen is received balbir and labeled with the patient's name and Stomach, Gastric band and its components. The specimen consists of a gastric band labeled ? Allergan? and Port-A-Cath with a s 4:44 PM CDT LABORATORY mall amount of attached soft tissue. The Port-A-Cath is labeled ? Port-A-Cath M [id number]? . No sections; gross only. AW Embedded 10/03/2021 [facility] Images 4:44 PM CDT LABORATORY Specimen Anatomical Collection Method Collection Time Receive d Time (Source) Location / / Volume Laterality Tissue STOMACH STRUCTURE 09/30/2021 10:12 2021 / Unknown AM CDT 10:21 AM CDT Devon Cool MD LAB PATHOLOGY Performing Organization Address City/State/ZIP Code Phon e Number [facility] [address] [place] [address] STAT ECG 12 Lead Inpatient (09/30/2021 6:25 AM CDT) P athologist Signature Ventricular Rate 63 BPM [facility] Atrial Rate 63 BPM [facility] P-R Interval 158 ms [facility] QRS Duration 82 ms [facility] QT 406 ms [facility] QTc 415 ms [facility] P [place] 42 degrees [facility] R [place] 43 degrees [facility] T [place] 12 degrees [facility] Specimen (Source) Anatomical Collection Method Collection Time Re ceived Time Location / / Volume Laterality 09/30/2021 6:25 AM CDT Narrative [facility] - 09/30/2021 8:06 AM CDT Sinus rhythm Normal ECG When compared with ECG of 14-MAY-2009 16 :27, T wave inversion no longer evident in [place] t[place] leads QT has shortened Confirmed by Dwight Monge ([id number]) on 09/30/2021 8:06:42 AM Procedure Note Dwight Monge MD - 09/30/2021Format ting of this note might be different from the original. Sinus rhythm Normal ECG When compared with ECG of 14-MAY-2009 16 :27, T wave inversion no longer evident in [place] t[place] leads QT has shortened Confirmed by Dwight Monge ([id number]) on 09/30/2021 8:06:42 AM Devon Cool MD PN ECG ORDERABLES Performing Organization Address [facility]/ZIP [facility] Phon e Number [facility] [address] [place] [address] Hemoglobin for all patients that have a Draw and Hold, Type and Screen, or Type and Cross ordered (09/30/2021 6:06 AM CDT) P athologist Signature Hemoglobin 13.9 12.0 - 15.5 09/30/2021 [facility] g/dL 6:13 AM CDT LABORATORY Specimen Anatomical Collection Method / Collection Time Recei bree Time (Source) Location / Volume Laterality Blood Venipuncture 09/30/2021 6:06 09/30/2021 6 :10 [place] / Unknown AM CDT AM CDT Devon Cool MD LAB_1 Performing Organization Address [facility] Phon e Number [facility] [address] [place] [address] Draw & Hold - Inpatient Only (09/30/2021 6:06 AM CDT) [facility] gist Method Time Signature BB DRAW AND Received in 09/30/2021 [facility] HOLD BB 6:34 AM CDT BLOOD BANK Specimen Anatomical Collection Method / Collection Time Recei bree Time (Source) Location / Volume Laterality Blood Venipuncture / 09/30/2021 6:06 09/30/2021 6:10 Unknown AM CDT AM CDT Devon Cool MD LAB_1 Performing Organization Address [facility] Phon e Number [facility] [address] [place] [address] documented in this encounter Visit Diagnoses Diagnosis Complication of gastric banding - Primar y Other complications of gastric band proc edure Dysphagia, unspecified type Sleep apnea Unspecified sleep apnea Morbid obesity with BMI of 40.0-44.9, ad ult (HRC) Depressive disorder Depressive disorder, not elsewhere class ified Hypothyroidism (HRC) Unspecified hypothyroidism Complication of gastric banding Other complications of gastric band proc edure Dysphagia, unspecified type documented in this encounter Admitting Diagnoses Diagnosis Complication of gastric banding Other complications of gastric band proc edure Dysphagia Dysphagia, unspecified documented in this encounter Administered Medications Inactive Administered Medications - up to 3 most recent administrations Medication Order MAR Action Action Date Dose Rate Site acetaminophen (TYLENOL) oral solution 32 5-650 mg 325-650 mg, Oral, QID AC, First dose on Wed09/30/21 at 1600, Until Discontinued, Give for mild pain or if patient prefers acetaminophen over other options for pain (all pain scores). May start evening of surgery if tolerating oral intake. Tablet preferred, may use liquid if tablet not tolerated., Po st-op acetaminophen (TYLENOL) tablet 325-650 m g Given 10/01/2021 6:52 AM CDT 650 mg 325-650 mg, Oral, QID AC, First dose on Wed09/30/21 at 1600, Until Discontinued, May start evening of surgery if tolerating oral intake. Tablet preferred, may use liquid if tablet not tolerated., Post-op Given 09/30/2021 9:35 PM CDT 650 mg Given 09/30/2021 3:11 PM CDT 650 mg acetaminophen (TYLENOL) tablet 650 mg Given 10/01/2021 8:30 AM CDT 650 mg 650 mg, Oral, HS PRN, Pain, mild pain (pain score 1-4), Starting on Wed09/30/21 at 1230, Until Wed10/01/21 at 1244 bupivacaine-epinephrine PF (MARCAINE Given 09/30/2021 10:10 AM C DT 50 mL W/EPINEPHRINE) 0.5% -1:101253 injection ONCE PRN, Starting on Wed09/30/21 at 1010, Intra-op enoxaparin (LOVENOX) prefilled Given 09/30/2021 6:42 AM CDT 40 m g Abdominal Tissue syringe 40 mg 40 mg, Subcutaneous, ONCE, On Wed09/30/21 at 0600, For 1 dose, Give in Preop area., Pre-op hyoscyamine (LEVSIN/SL) sublingual tablet Given 09/30/2021 2 :36 PM CDT 0.125 mg 0.125 mg 0.125 mg, Sublingual, Q4H PRN, Cramping, Starting on Wed09/30/21 at 1230, Until Wed10/01/21 at 1244, Tablets may be used sublingually, chewed, or swallowed whole, Post-op iopamidol (ISOVUE-370) 76 % injection 70 mL Given 10/01/2021 8:19 AM CDT 70 mL 70 mL, Oral, ONCE, On Wed10/01/21 at 0845, For 1 dose, Radiology ketorolac (TORADOL) injection 15 mg Given 10/01/2021 5:26 AM CDT 15 mg 15 mg, Intravenous, Q6H PRN, Other, Mild Pain (pain score 1-4) Mild Pain not relieved by acetaminophen or if patient is unable to take oral acetaminophen, Starting on Wed09/30/21 at 1630, Until Wed10/01/21 at 0526, For 2 doses, Post-op Given 09/30/2021 6:09 PM CDT 15 mg lactated ringers Continue Current Bag 09/30/2021 10:48 AM 25 mL/hr 25 mL/hr infusion CDT 25 mL/hr, Intravenous, CONTINUOUS, Starting on Wed09/30/21 at 0600, Administer on all preop surgery patients, ages 12 and older, unless specified differently in the Protocol for Preop Initiation of IV fluids Order Set., Pre-op Started 09/30/2021 10:04 AM CDT Continue from Pre-Op 09/30/2021 7:43 AM CDT 25 mL/hr lactated ringers infusion Started 09/30/2021 1:03 PM CDT 100 mL/hr Intravenous, at 100 mL/hr, CONTINUOUS, Starting on Wed09/30/21 at 1300, Post-op levothyroxine (SYNTHROID) tablet 150 mcg Given 10/01/2021 8:25 AM CDT 150 mcg 150 mcg, Oral, DAILY, First dose on Wed10/01/21 at 0800, Until Discontinued, Take on an empty stomach, one hour before meals or two hours after. lidocaine PF (XYLOCAINE) 1 % injection Given 09/30/2021 6:38 AM CDT 0.2 mL 0.1-0.3 mL 0.1-0.3 mL, Intradermal, ONCE, On Wed09/30/21 at 0600, For 1 dose, Lidocaine to be used for IV starts unless patient refuses., Pre-op LORazepam (ATIVAN) injection 0.5-1 mg 0.5-1 mg, Intravenous, Q4H PRN, Anxiety, Nausea, vomiting, Starting on Wed09/30/21 at 1230, Until Wed10/01/21 at 1244, If un able to tolerate oral LORazepam. Administer anti-emetics with following priority bas ed on effectiveness: ondansetron (ZOFRAN), LORazepam (ATIVAN), promethazine (PHENER MARK), haloperidol (HALDOL). MUST BE DILUTED immediately prior to IV administration. Dilute with eq ual volume of NS. Mix thoroughly by gently inverting the conta iner until a homogeneous solution results. Do not shake., Post-op LORazepam (ATIVAN) tablet 0.5-1 mg 0.5-1 mg, Oral, Q4H PRN, Anxiety, Other, Nausea, vomiting, Starting on Wed09/30/21 at 1230, Until Wed10/01/21 at 1244, Admin ister anti-emetics with following priority based on effectiveness: ondansetron (ZOFRAN), LORazepa m (ATIVAN), promethazine (PHENERGAN), haloperidol (HALDOL). Start POD #1., Post -op octyl 2-cyanoacrylate Given 09/30/2021 10:30 AM CDT 1 Each Wound Site (LIQUIBAND/DERMABOND) adhesive ONCE PRN, Starting on Wed09/30/21 at 1030, Intra-op ondansetron (ZOFRAN) injection 4 mg 4 mg, Intravenous, Q6H (NON-STND), First dose on Wed at 0000, Until Discontinued, f unable to tolerate oral. Administer an ti-emetics with following priority based on effectiveness: ondansetron (ZOFRAN), LORazepam (ATIVAN), promethazine (PHENERGAN), haloperidol (HALDOL)., Post- op ondansetron (ZOFRAN) tablet 4 mg Given 10/01/2021 5:23 AM CDT 4 mg 4 mg, Oral, Q6H (NON-STND), First dose on Wed10/01/21 at 0000, Until Discontinued, Starting POD 1 Administer anti-emetics with following priority based on effectiveness: ondansetron (ZOFRAN), LORazepam (ATIVAN), promethazine (PHENERGAN), haloperidol (HALDOL). Hold PRN doses if scheduled ondansetron is ordered., Post-op Given 10/01/2021 12:47 AM CDT 4 mg oxyCODONE (ROXICODONE) 1 MG/1ML solution 5-10 mg 5-10 mg, Oral, Q6H PRN, Other, Severe Pa in (pain score 8-10) Moderate Pain (pain scale 5-7), Starting on Wed09/30/21 at 18 00, Until Wed10/01/21 at 1244, Moderate Pain (pain scale 5-7) - If ketorolac is ineff ective or if patient cannot have ketoroac Severe Pain (8-10) Tablet preferred, may use liquid if tablet not tolerated. May start evening of surgery if tolerating oral intake (30 mL x2)., Post-op oxyCODONE (ROXICODONE) immediate release tablet Given 10/01/2021 3:38 AM CDT 5 mg 5-10 mg 5-10 mg, Oral, Q6H PRN, Other, Severe Pain (pain score 8-10) Moderate Pain (pain scale 5-7), Starting on Wed09/30/21 at 1800, Until Wed10/01/21 at 1244, Moderate Pain (pain scale 5-7) - If ketorolac is ineffective or if patient cannot have ketoroac Severe Pain (8-10). Tablet preferred, may use liquid if tablet not tolerated. May start evening of surgery if tolerating oral intake., Post-op pantoprazole DR (PROTONIX) tablet 40 mg Given 10/01/2021 5:23 AM CDT 40 mg 40 mg, Oral, DAILY AT 0600, First dose on Wed10/01/21 at 0600, Until Discontinued, Start post-op day # 1., Post-op simethicone (GENASYME) 40 MG/0.6ML oral Given 10/01/2021 8:33 AM CDT 80 mg suspension 80 mg 80 mg, Oral, Q6H W/A, First dose on Wed09/30/21 at 1400, Until Discontinued, Post-op Given 09/30/2021 9:35 PM CDT 80 mg Given 09/30/2021 1:55 PM CDT 80 mg sodium chloride 0.9% 0.9 % injection - ADS Given 09/30/2021 9:35 PM CDT Override Pull Starting on Wed09/30/21 at 2127, Until Wed09/30/21 at 2135, For 1 dose, Alvina Cordova: [email or web address] override sodium chloride 0.9% injection 10-60 mL Given 10/01/2021 8:28 AM CDT 10 mL 10-60 mL, Intravenous, BID, First dose on Wed09/30/21 at 2300, Until Discontinued, For an INT flush, flush with at least 10 mL. For PICC (including Power Injectable PICC), flush with 10 mL. For Port-a-Cath, flush with a minimum of 10mL. For Shipley, flush with a minimum of 10 mL. For jugular, subclavian, femoral central lines, flush with a minimum 10 mL. For additional information about flushing processes, reference the Vascular Access Device Users Guide. sodium chloride 0.9% injection 10-60 mL Given 10/01/2021 5:26 AM CDT 20 mL 10-60 mL, Intravenous, PRN, Line Patency, Line Care, Starting on Wed09/30/21 at 2243, Until Wed10/01/21 at 1244, For an INT flush, flush with at least 10 mL. For PICC (including Power Injectable PICC), flush with 10 mL. For Port-a-Cath, flush with a minimum of 10mL. For Shipley, flush with a minimum of 10 mL. For jugular, subclavian, femoral central lines, flush with a minimum 10 mL. For additional information about flushing processes, reference the Vascular Access Device Users Guide. tisseel Given 09/30/2021 9:56 AM CDT 4 mL Wound Site ONCE PRN, Starting on Wed09/30/21 at 0956, Until Wed09/30/21 at 1229 documented in this encounter Active and Recently Administered Medications Times are shown in CDT. Scheduled Medication Order 09/29/2021 09/30/2021 10/01/2021 acetaminophen (TYLENOL) oral solution 325-650 mg(Linked Grou p 1) 1511 (See Alternative - Provider: Elena Huntley RN)2135 (See Alternative - Provider: Alvina Cordova RN) 0652 (See Alternative - Provider: Alvina Cordova RN) 325-650 mg, Oral, QID AC, First dose on Wed09/30/21 at 1600, Until Discontinued, Give for mild pain or if patient prefers acetaminophen over other options for pain (all pain scores). May start evening of surgery if tolerating oral intake. Tabl et preferred, may use liquid if tablet not tolerated., Post-op acetaminophen (TYLENOL) tablet 325-650 mg(Linked Group 1) 1511 (Given - Provider: Elena Huntley RN)2135 (Given - Provider: Alvina Cordova RN) 0652 (Given - Provider: Alvina Cordova RN) 325-650 mg, Oral, QID AC, First dose on Wed09/30/21 at 1600, Until Discontinued, May start evening of surgery if tolerating oral intake. Tablet preferred, may use liquid if tablet not tolerated., Post-op ceFAZolin (ANCEF) 3 g in sodium chloride 0.9 % 100 mL IVPB ( COMPLETED) 802 (Started - Provider: Vandana Rodgers APRN, PIECE DYEING MACHINE TENDER) 3 g, Intravenous, Administer over 30 Min utes, ONCE, On Wed09/30/21 at 0600, For 1 dose, Infuse within 60 minutes prior to incision. Re-dose 2 gram IV every 4 hours after initial dose until incision close d. Re-dose if more than 1.5 L of blood l oss. Pharmacy may adjust for renal insufficiency., Pre-op enoxaparin (LOVENOX) prefilled syringe 40 mg (COMPLETED) 641 (Given - Provider: Anushka Navarro RN) 40 mg, Subcutaneous, ONCE, On Wed09/30/21 at 0600, For 1 dose, Give in Preop area., Pre-op enoxaparin (LOVENOX) prefilled syringe 40 mg 1000 (Due) 40 mg, Subcutaneous, DAILY, First dose o n Wed10/01/21 at 1000, Until Discontinued, Starting POD #1, Post-op iopamidol (ISOVUE-370) 76 % injection 70 mL (COMPLETED) 818 (Given - Provider: Bhavana Nichole - Comment: LOT: [id number]) 70 mL, Oral, ONCE, On Wed10/01/21 at 0845, For 1 dose, Radiology levothyroxine (SYNTHROID) tablet 150 mcg 0825 (Given - Provider: Zee Hollingsworth) 150 mcg, Oral, DAILY, First dose on Wed10/01/21 at 0800, Until Discontinued, Take on an empty stomach, one hour before meals or two hours after. lidocaine PF (XYLOCAINE) 1 % injection 0.1-0.3 mL (COMPLETED ) 637 (Given - Provider: Anushka Navarro RN) 0.1-0.3 mL, Intradermal, ONCE, On 08/17 at 0600, For 1 dose, Lidocaine to be used for IV starts unless patient refuses., Pre-op NO post-op antibiotics needed 1257 (Noted - Prov ider: Elena Huntley RN) Q24H, First dose on Wed09/30/21 at 1300, Post-op ondansetron (ZOFRAN) injection 4 mg(Linked Group 2) 46 (See Alternative - Provider: Alvina Cordova RN)0523 (See Alternative - Provider: Alvina Cordova RN) 4 mg, Intravenous, Q6H (NON-STND), First dose on Wed10/01/21 at 0000, Until Discontinued, f unable to tolerate oral. Administer anti-emetics with following priority based on effectiveness: ondansetron (Z OFRAN), LORazepam (ATIVAN), promethazine (PHENERGAN), haloperidol (HALDOL)., Post-op ondansetron (ZOFRAN) tablet 4 mg(Linked Group 2) 46 (Given - Provider: Alvina Cordova RN)0523 (Given - Provider: Alvina Cordova RN) 4 mg, Oral, Q6H (NON-STND), First dose o n Wed10/01/21 at 0000, Until Discontinued, Starting POD 1 Administer anti-emetics with following priority based on effectiveness: ondansetron (ZOFRAN), LORazepam ( ATIVAN), promethazine (PHENERGAN), halop eridol (HALDOL). Hold PRN doses if scheduled ondansetron is ordered., Post-op pantoprazole DR (PROTONIX) tablet 40 mg 522 (Given - Provider: Alvina Cordova RN) 40 mg, Oral, DAILY AT 0600, First dose o n 10/01/21 at 0600, Until Discontinued, Start post-op day # 1., Post-op simethicone (GENASYME) 40 MG/0.6ML oral suspension 80 mg 1355 (Given - Provider: Elena Huntley RN)2135 (Given - Provider: Alvina Cordova RN) 0833 (Given - Provider: Zee Hollingsworth) 80 mg, Oral, Q6H W/A, First dose on Wed09/30/21 at 1400, Until Discontinued, Post-op sodium chloride 0.9% injection 10-60 mL 0049 (Not Given - Provider: Alvina Cordova RN - Reason: Order parameters not met)0828 (Given - Provider: Zee Hollingsworth) 10-60 mL, Intravenous, BID, First dose o n Wed09/30/21 at 2300, Until Discontinued, For an INT flush, flush with at least 10 mL. For PICC (including Power Injectable PICC), flush with 10 mL. For Port-a-Ca th, flush with a minimum of 10mL. For Hi ckman, flush with a minimum of 10 mL. For jugular, subclavian, femoral central lines, flush with a minimum 10 mL. For additional information about flushing proces ses, reference the Vascular Access Device Users Guide. Continuous Medication Order 09/29/2021 09/30/2021 10/01/2021 lactated ringers infusion (CANCELED) 063 7 (Started - Provider: Anushka Navarro RN)0743 (Continue from Pre-Op - Provider: Vandana Rodgers APRN, GIO)1003 (Stopped - Provider: Vandana Rodgers APRN, CRNA - Comment: Switch to gravit y) 25 mL/hr, Intravenous, CONTINUOUS, Start ing on Wed09/30/21 at 0600, Administer on all preop surgery patients, ages 12 and older, unless specified differently in the Protocol for Preop Initiation of IV fluids Order Set., Pre-op 1004 (Started - Provider: Vandana Rodgers APRN, GIO)1047 (Anesthesia Fluid - Provider: Vandana J Tiedtke, DYE REEL OPERATOR HELPER, PIECE DYEING MACHINE TENDER)1048 (Continue Current Bag - Provider: Tess Mcdowell, CASSI) lactated ringers infusion 1303 (Started - Provid er: Elena Huntley RN) Intravenous, at 100 mL/hr, CONTINUOUS, Starting on Wed 2 at 1300, Post-op PRN Medication Order 09/29/2021 09/30/2021 10/01/2021 acetaminophen (TYLENOL) tablet 650 mg 0830 (Given - Provider: Zee Hollingsworth) 650 mg, Oral, HS PRN, Pain, mild pain (p ain score 1-4), Starting on Wed09/30/21 at 1230, Until Wed10/01/21 at 1244 ALBUterol sulfate HFA inhaler 2 Puff 2 Puff, Inhalation, Q4H PRN, Cough/Wheez ing, Shortness of Breath, Bronchospasm, Starting on Wed09/30/21 at 1230, Until Wed10/01/21 at 1244, Raymond contreras bupivacaine-epinephrine PF (MARCAINE W/E PINEPHRINE) 0.5% -1:123768 injection (CANCELED) 1010 (Given - Provider: Devon vega MD) ONCE PRN, Starting on Wed09/30/21 at 1010, Intra-op diphenhydrAMINE (BENADRYL) capsule 25-50 mg 25-50 mg, Oral, Q6H PRN, Itching, Starti ng on Wed10/01/21 at 0000, Until Wed10/01/21 at 1244, Post-op diphenhydrAMINE (BENADRYL) injection 25-50 mg 25-50 mg, Intravenous, Q6H PRN, Itching, Starting on Wed09/30/21 at 1230, Until Wed10/01/21 at 1244, If unable to tolerate oral., Post-op fluticasone propionate (FLONASE) 50 MCG/ACT nasal spray 1-2 Spra y 1-2 [place], Both Nostrils, DAILY PRN, Rhi nitis, Allergies, Starting on Wed09/30/21 at 1230, Until Wed10/01/21 at 1244 hydrALAZINE (APRESOLINE) injection 10 mg 10 mg, Intravenous, Q6H PRN, Other, BP > 160/95, Starting on Wed09/30/21 at 1230, Until Wed10/01/21 at 1244, Post-op HYDROmorphone (DILAUDID) injection 0.2-0.3 mg 0.2-0.3 mg, Intravenous, Q30MIN PRN, Oth er, Severe Pain (pain score 8-10) Moderate Pain (pain scale 5-7), Starting on Wed09/30/21 at 1230, Until Wed10/01/21 at 1244, While NPO: Pain greater than 4. When t olerating PO: severe pain (8-10) if oral medications are ineffective. Give after ADJUNCT PHYSICAL EDUCATION INSTRUCTOR is discontinued (if ADJUNCT PHYSICAL EDUCATION INSTRUCTOR ordered). Offer at least every 2 hours. Do not give both IV and oral opioids together. Use or al opioids when able to tolerate oral intake., Post-op hyoscyamine (LEVSIN/SL) sublingual tablet 0.125 mg 1436 (Given - Provider: Elena Huntley RN) 0.125 mg, Sublingual, Q4H PRN, Cramping, Starting on Wed09/30/21 at 1230, Until Wed10/01/21 at 1244, Tablets may be used sublingually, chewed, or swallowed whole, Post-op ketorolac (TORADOL) injection 15 mg (COMPLETED) 180 (Given - Provider: Elena Huntley, CASSI) 0526 (Given - Provider: Alvina Cordova RN) 15 mg, Intravenous, Q6H PRN, Other, Mild Pain (pain score 1-4) Mild Pain not relieved by acetaminophen or if patient is unable to take oral acetaminophen, Starting on Wed09/30/21 at 1630, Until Discontinued, For 2 doses, Post-op lidocaine (UROJET) 2 % prefilled syringe Urethral, PRN, Local Anesthetic, Urethra l Discomfort, Starting on Wed09/30/21 at 1230, Consider using for any adult male or any patients with a history of painful urinary catheter insertion and no lidocaine allergy., Post-op LORazepam (ATIVAN) injection 0.5-1 mg(Linked Group 3) 0.5-1 mg, Intravenous, Q4H PRN, Anxiety, Nausea, vomiting, Starting on Wed09/30/21 at 1230, Until Wed10/01/21 at 1244, If unable to tolerate oral LORazepam. Administer anti-emetics with following priority based on effectiveness: ondansetron (ZO JAMES), LORazepam (ATIVAN), promethazine (PHENERGAN), haloperidol (HALDOL). MUST BE DILUTED immediately prior to IV administration. Dilute with equal volume of NS. Mix thoroughly by gently inverting the container until a homogeneous solution results. Do not shake., Post-op LORazepam (ATIVAN) tablet 0.5-1 mg(Linked Group 3) 0.5-1 mg, Oral, Q4H PRN, Anxiety, Other, Nausea, vomiting, Starting on Wed09/30/21 at 1230, Until Wed10/01/21 at 1244, Administer anti-emetics with following priority based on effectiveness: ondansetron ( ZOFRAN), LORazepam (ATIVAN), promethazin e (PHENERGAN), haloperidol (HALDOL). Start POD #1., Post-op octyl 2-cyanoacrylate (LIQUIBAND/DERMABOND) adhesive (CANCEL ED) 1030 (Given - Provider: Siri Mcgee PA-C) ONCE PRN, Starting on Wed09/30/21 at 1030, Intra-op ondansetron (ZOFRAN) injection 4 mg 4 mg, Intravenous, Q6H PRN, Nausea, Vomi ting, Starting on Wed09/30/21 at 1230, Until Wed10/01/21 at 1244, For 3 doses, Administer anti-emetics with following priority based on effectiveness: ondansetron ( ZOFRAN), LORazepam (ATIVAN), promethazin e (PHENERGAN), haloperidol (HALDOL)., Post-op oxyCODONE (ROXICODONE) 1 MG/1ML solution 5-10 mg(Linked Group 4) 0338 (See Alternative - Provider: Alvina Cordova RN) 5-10 mg, Oral, Q6H PRN, Other, Severe Pa in (pain score 8-10) Moderate Pain (pain scale 5-7), Starting on Wed09/30/21 at 1800, Until Wed10/01/21 at 1244, Moderate Pain (pain scale 5-7) - If ketorolac is in effective or if patient cannot have keto roac Severe Pain (8-10) Tablet preferred, may use liquid if tablet not tolerated. May start evening of surgery if tolerating oral intake (30mL x2)., Post-op oxyCODONE (ROXICODONE) immediate release tablet 5-10 mg(Linked G roup 4) 0338 (Given - Provider: Alvina Cordova RN) 5-10 mg, Oral, Q6H PRN, Other, Severe Pa in (pain score 8-10) Moderate Pain (pain scale 5-7), Starting on Wed09/30/21 at 1800, Until Wed10/01/21 at 1244, Moderate Pain (pain scale 5-7) - If ketorolac is in effective or if patient cannot have keto roac Severe Pain (8-10). Tablet preferred, may use liquid if tablet not tolerated. May start evening of surgery if tolerating oral intake., Post-op sodium chloride 0.9% injection 10-60 mL 0526 (Given - Provider: Alvina Cordova RN) 10-60 mL, Intravenous, PRN, Line Patency , Line Care, Starting on Wed09/30/21 at 2243, Until Wed10/01/21 at 1244, For an INT flush, flush with at least 10 mL. For PICC (including Power Injectable PICC), fl ush with 10 mL. For Port-a-Cath, flush w ith a minimum of 10mL. For Shipley, flush with a minimum of 10 mL. For jugular, subclavian, femoral central lines, flush with a minimum 10 mL. For additional info rmation about flushing processes, refere [facility] the Vascular Access Device Users Guide. tisseel (CANCELED) 0956 (Given - Provid er: Devon Cool MD - Comment: Vistaseal 4mL) ONCE PRN, Starting on Wed09/30/21 at 0956, Until Wed09/30/21 at 12 29 No Frequency Medication Order 09/29/2021 09/30/2021 10/01/2021 sodium chloride 0.9% 0.9 % injection - ADS Override Pull (CO MPLETED) 2865 (Given - Provider: Alvina Cordova RN) Starting on Wed09/30/21 at 2127, Until We d 10/01/21 at 0944, For 1 dose, Alvina Cordova: pebbles override Linked Groups Order Group 1: acetaminophen (TYLENOL) tablet 325-650 mgJump to med 325-650 mg, Oral, QID AC, First dose on Wed09/30/21 at 1600, Until Discontinued
May start evening of surgery if tolerating oral intake. Tablet preferred, may use liquid if tablet not tolerated.
Post-op Or acetaminophen (TYLENOL) oral solution 325-650 mgJump to med 325-650 mg, Oral, QID AC, First dose on Wed09/30/21 at 1600, Until Discontinued
Give for mild pain or if patient prefers acetaminophen over other options for pain (all pain scores). May start evening of surgery if tolerating oral intake. Tablet preferred, may use liquid if tablet not tolerated.
Post-op Group 2: ondansetron (ZOFRAN) tablet 4 mgJump to med 4 mg, Oral, Q6H (NON-STND), First dose o n Wed10/01/21 at 0000, Until Discontinued
Starting POD 1 Administer anti-emetics with following priority based on effectiveness: ondansetron (ZOF RAN), LORazepam (ATIVAN), promethazine ( PHENERGAN), haloperidol (HALDOL). Hold PRN doses if scheduled ondansetron is ordered.
Post-op Or ondansetron (ZOFRAN) injection 4 mgJump to med 4 mg, Intravenous, Q6H (NON-STND), First dose on Wed10/01/21 at 0000, Until Discontinued
f unable to tolerate oral. Administer anti-emetics with following priority based on effectiveness: ondans etron (ZOFRAN), LORazepam (ATIVAN), prom ethazine (PHENERGAN), haloperidol (HALDOL).
Post-op Group 3: LORazepam (ATIVAN) tablet 0.5-1 mgJump to med 0.5-1 mg, Oral, Q4H PRN, Anxiety, Other, Nausea, vomiting, Starting on Wed09/30/21 at 1230, Until Wed10/01/21 at 1244
Administer anti-emetics with following priority based on effectiveness: ondan setron (ZOFRAN), LORazepam (ATIVAN), pro methazine (PHENERGAN), haloperidol (HALDOL). Start POD #1.
Post-op Or LORazepam (ATIVAN) injection 0.5-1 mgJump to med 0.5-1 mg, Intravenous, Q4H PRN, Anxiety, Nausea, vomiting, Starting on Wed09/30/21 at 1230, Until Wed10/01/21 at 1244
If unable to tolerate oral LORazepam. Administer anti-emetics with following priority based on effectiveness: ondanse elvis (ZOFRAN), LORazepam (ATIVAN), promethazine (PHENERGAN), haloperidol (HALDOL). MUST BE DILUTED immediately prior to IV administration. Dilu te with equal volume of NS. Mix thorough ly by gently inverting the container until a homogeneous solution results. Do not shake.
Post-op Group 4: oxyCODONE (ROXICODONE) immediate release tablet 5-10 mgJump to med 5-10 mg, Oral, Q6H PRN, Other, Severe Pa in (pain score 8-10) Moderate Pain (pain scale 5-7), Starting on Wed09/30/21 at 1800, Until Wed10/01/21 at 1244
Moderate Pain (pain scale 5-7) - If ketorol ac is ineffective or if patient cannot h ave ketoroac Severe Pain (8- 10). Tablet preferred, may use liquid if tablet not tolerated. May start evening of surgery if tolerating oral intake.
Post-op Or oxyCODONE (ROXICODONE) 1 MG/1ML solution 5-10 mgJump to med 5-10 mg, Oral, Q6H PRN, Other, Severe Pa in (pain score 8-10) Moderate Pain (pain scale 5-7), Starting on Wed09/30/21 at 1800, Until Wed10/01/21 at 1244
Moderate Pain (pain scale 5-7) - If ketorol ac is ineffective or if patient cannot h ave ketoroac Severe Pain (8- 10) Tablet preferred, may use liquid if tablet not tolerated. May start evening of surgery if tolerating oral intake (30mL x2).
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
--- OUTSIDE RECORDS SUMMARY | 2022-02-13 12:09 | XMS_ITS | Encounter Summary ---
:1950 Author Organization [employer] Address [address], [place] [address] Care Team Providers Name Role Phone Nancy Coffey Primary Care Provider Encounter Details Date Type Department Care Team Description 07/24/2021 Notes/Orders [facility] [address] [facility] [address] [place], [place] [id number] Social History Tobacco Use Types Packs/Day Years [...] on filedocumented in this encounter Care Teams Green Marketing Analyst Relationship Specialty Start Date End Date Nancy Coffey MBBS PCP - General 11/09/12 09/29/21 [address] [address] [place] [id number] documented as of this encounter
--- OUTSIDE RECORDS SUMMARY | 2022-02-13 12:09 | XMS_ITS | Encounter Summary ---
:1950 Author Organization [employer] Address [address] [place] [address] Care Team Providers Name Role Phone Delphine aBtista MD Primary Care Provider [phone] Reason for Visit Auth/Cert Specialty Diagnoses / Procedures Referred By Contact Refer red To Contact Diagnoses Complication of gastric banding Dysphagia, unspecified type Procedures LAPAROSCOPIC REMOVAL OF ADJUSTABLE GASTRIC BAND Referral ID Status Reason Start Date Expiration Date Visits Requ ested Visits Authorized [id number] 1 1 Encounter Details Date Type Department Care Team Description 09/30/2021 Anesthesia Event Bahai Operating Pretty Lowery MD [address] [place], [place] [address] Vandana Seth APRN, GIO [address] [place], [place] [address] [address] [facility] [place] [address] Anesthesia Record Procedure Summary Procedure Name Responsible Anesthesia Start Anesthesia Stop Anesthesiologist Time Time LAPAROSCOPIC REMOVAL Tay Lowery MD 09/30/21 0743 08/17 1048 OF ADJUSTABLE GASTRIC BAND,UPPER ENDOSCOPY, HIATAL HERNIA REPAIR WITH MESH. Events Date Time Event Comment 09/30/2021 0732 0743 An Start 0746 An Start Data 0752 An Induction 0755 An Intubation 0757 MD/DO Present 0910 MD/DO Present 1019 MD/DO Present 1032 MD/DO Present 1032 An Extubation Purposeful movem ent with spontaneous respirations and adequate air exchange. Suctioned and ETT removed. Transfe rred with oxygen to recovery. 1040 an stop data 1047 Care Handoff Note I discussed wi th the receiving nurse and we: 1) Identified the p atient, ballard family member(s) or patient surrogat e 2) Identified the responsible practitioner 3) Reviewed the pertinent medical history 4) Discu ssed the surgical/procedure course 5) Reviewed intr a-op anesthesia management and issues during an esthesia 6) Set expectations for the post-procedu re period 7) Allowed opportunity for questions an d acknowledgement of understanding of report Electr onically signed by Vandana Rodgers APRN, C RNA 1048 An Stop Care transferred . Name Total midazolam injection 2 mg/2 mL (VERSED) 1 mg fentaNYL injection (SUBLIMAZE) 200 mcg HYDROmorphone injection 1 mg/mL (DILAUDID) 1 mg lidocaine 1% PF injection (XYLOCAINE) 50 mg propofol 10 mg/mL IV (DIPRIVAN) 170 mg succinylcholine injection (QUELICIN) 160 mg rocuronium injection (ZEMURON) 80 mg glycopyrrolate 0.2 mg/mL injection (ROBINUL) 0.1 mg sugammadex injection 100mg/mL (BRIDION) 200 mg ondansetron injection (ZOFRAN) 4 mg dexamethasone 4 mg/mL injection (DECADRON) 4 mg phenylephrine 100 mcg/mL in NaCl 0.9% syringe 700 mcg dexmedetomidine (PRECEDEX) 200 mcg in sodium chloride 0.9 % 50 mL (4 mcg/mL) 62.7 mcg infusion ceFAZolin (ANCEF) 3 g in sodium chloride 0.9 % 100 mL IVPB 3 g lactated ringers infusion 1,100 mL Agents Name O2 Air Sevoflurane () Identified Agent Name Blood No blood administrations on file. Lines, Drains, and Airways Type Details Placement Removal Incision/Surgical Site 09/30/21; #1 (5 port 09/30/21 0000 by 09/17 1021 by sites); Abdomen; JoshuaomAva armando, Allan Arechiga RN Medial, Upper; RN 10/01/21; 1021 Peripheral IV Placement Date: 09/30/21 0637 by 10/01/21 1021 b y 09/30/21; Placement Anushka Navarro RN Brace, Ar iana R, RN Time: 636; Pre-existing: No; Inserted by?: RN; Size (Gauge): 20 G; Orientation: Right; Site Prep: ChloraPrep; Local Anesthetic: Injectable; Insertion attempts: 2; Removal Date: 10/01/21; Removal Time: 102 ETT Placement Date: 09/30/21 075 by 09/30/21 1032 b y 09/30/21; Placement Vandana Rodgers, Vandana Turk Time: 754; Placed By: GIO MANCILLA, GIO MANCILLA CRNA; Induction Type: Pre-O2, IV; Masking: Easy (with yellow oral airway); ETT Type: ETT; Orientation: Right; Size (mm): 7.0; Depth Secured (cm): 21 cm; Cuffed: Cuffed; Intubation Method: Video laryngoscopy; Cormack_Lehane Glottic Grade: Grade 1; Glottic View: Cords Open, Cords Clear; Blade: Glidescope; Blade Size: 3; Insertion attempts: 1; Difficulty: Atraumatic; Adjunct Equipment: Stylet; Placement Verification: BBSE, auscultation, capnometry, Positive EtCO2; Removal Date: 09/30/21; Removal Time: 103 documented in this encounter Social History Tobacco Use Types Packs/Day Years Used Date Smoking Tobacco: Never Smokeless Tobacco: Never Alcohol Use Standard Drinks/Week Comments Yes 0 (1 standard drink = 0.6 oz pure alcoho l) occasionally Sex Assigned at Date Recorded Female 01/13/2021 5:27 PM CDT documented as of this encounter Miscellaneous Notes Anesthesia Postprocedure Evaluation - Tay Lowery MD - 09/30/2021 12:07 PM CDT [facility] Anesthesia Post-op Note Patient: Mindi Caba Post-Op Diagnosis: Complication of gastric banding, dysphagia, unspecified type Procedure Performed: Procedure(s): LAPAROSCOPIC REMOVAL OF ADJUSTABLE GASTRIC BAND,UPPER ENDOSCOPY, HIATAL HERNIA REPAIR WITH MESH. - Wound Class: 2 CLEAN-CONTAMINATED Anesthesia Type: General Post-op vital signs: Vitals Value Taken Time BP 120/91 09/30/21 1200 Temp 36.1 ??C (97 ??F) 09/30/21 1130 Pulse 80 09/30/21 1205 Resp 13 09/30/21 1205 SpO2 96 % 09/30/21 1205 Vitals shown include unvalidated device data. Pain Score: Presence Of Pain: denies Preferred Pain Scale: number (Numeric Rating Pain Scale) Pain Rating (0-10): Rest: 2 Pain Rating (0-10): Activity: 2 Post-op assessment: No anesthesia complication. Patient location: PACU Airway Status: Patent Cardiovascular function: Satisfactory Hydration status: Satisfactory PONV: None Level of Consciousness: Awake Fully Participates Postop Assessment: Patient tolerated procedure well. Electronically signed by: Tay Lowery MD 09/30/2021 12:07 PM Anesthesia Preprocedure Evaluation - Tay Lowery MD - 09/30/2021 7:27 AM CDT [facility] Anesthesia Pre-op Evaluation Procedure: LAPAROSCOPIC REMOVAL OF ADJUSTABLE GASTRIC BAND, N/A HPI: 71 y.o. old female with Complication of gastric banding, dysphagia, unspecified type Last Fluid Intake Time: 0100 (sip) Last Fluid Intake Date: 09/30/21 Last Food Intake Date: 09/29/21 Last Food Intake Time: 1600 Allergies Allergen Reactions ??? Dust Other, see comments Sinus issues ? ? Molds & Smuts Cough Sinus issues ??? Other Other, see comments Perfumes - eyes water, cough Cat dander - sinus issues ??? Pollen Extract Cough Past Medical History: Diagnosis Date ??? Laparoscopic adjustable gastric band, APS 05/14/2009 ??? Laparoscopic adjustable gastric band, APS 05/14/2009 ??? Obesity ([facility]) 03/09/2012 Patient Active Problem List Diagnosis ??? Sleep apnea ??? LAP-BAND surgery status ??? Morbid obesity with BMI of 40.0-44.9, adult ([facility]) ??? Depressive disorder ??? Hypothyroidism ([facility]) ??? Complication of gastric banding ??? Dysphagia Past Surgical History: Procedure Laterality Date ??? GASTRIC RESTRICTION SURGERY LW Problem: Bariatric Surgery s/p LW Modifier: adjustable gastric band, APS Outpatient Medications as of 09/30/2021 Medication Sig ??? ASTELIN 137 MCG/SPRAY NA SOLN 2 sprays in the morning ??? BUDEPRION XL 300 MG OR TB24 1 tablet daily ??? cholecalciferol (VITAMIND3) 2000 UNITS tablet Take 1 tablet by mouth daily (every 24 hours). Indications: PREVENTION OF VITAMIN D DEFICIENCY ??? estrogens, conjugated (PREMARIN) 0.625 MG/GM vaginal cream Insert 1 Applicatorful vaginally. ??? Famotidine-Ca Carb-Mag Hydrox 10-800-165 MG Chew and swallow 1 Tablet by mouth daily. ??? fexofenadine (CECI) 180 MG tablet ??? FLUTICASONE PROPIONATE HFA 44 MCG/ACT IN AERO 1 spray twice daily ??? guaiFENesin (MUCINEX) 600 MG 12 hour release tablet Take 600 mg by mouth at bedtime as needed. ??? levothyroxine (AKA SYNTHROID) 137 MCG tablet Take 137 mcg by mouth daily. ??? levothyroxine (SYNTHROID) 125 MCG tablet Take 150 mcg by mouth. ??? levothyroxine (SYNTHROID) 137 MCG tablet Take 1 tablet by mouth daily (every 24 hours). LW Addl Instr:Indicated for: Hypothyroidism ??? levothyroxine (SYNTHROID) 150 MCG tablet Take 150 mcg by mouth daily. ??? Melatonin 5 MG ??? mirtazapine (REMERON) 30 MG tablet Take 1 mg by mouth nightly. ??? mirtazapine (REMERON) 45 MG tablet ??? Naproxen Sod-diphenhydrAMINE (ALEVE PM) 220-25 MG TABS ??? omeprazole (PRILOSEC) 20 MG capsule Take 1 Capsule by mouth. ??? oxybutynin (DITROPANXL) 10 MG 24 hour release tablet Take 10 mg by mouth. ??? PROAIR HFA 108 (90 BASE) MCG/ACT IN AERS Inhale 2 puffs by mouth every 4-6 hours as needed for breathing difficulties. Do not use more than 12 puffs in 24 hours. ??? rOPINIRole (REQUIP) 1 MG tablet Take 1 Tablet by mouth. ??? rOPINIRole (REQUIP) 2 MG tablet ??? simvastatin (ZOCOR) 20 MG tablet ??? simvastatin (ZOCOR) 40 MG tablet Take 1 tablet by mouth every evening. LW Addl Instr:Indicated for: High Cholesterol ??? triamcinolone (NASACORT AQ) 55 MCG/ACT nasal inhaler ??? TYLENOL PM EXTRA STRENGTH 500-25 MG OR TABS 1 tablet daily ??? Zinc Acetate 25 MG Take 50 mg by mouth. Facility-Administered Medications as of 09/30/2021 Medication Dose Route Frequency ??? bupivacaine-epinephrine PF (MARCAINE W/EPINEPHRINE) 0.5% -[id number] injection 50 mL 50 mL Injection Once ??? ceFAZolin (ANCEF) 3 g in sodium chloride 0.9 % 100 mL IVPB 3 g Intravenous Once ??? dextrose 5 % infusion Intravenous ONCE PRN ??? [COMPLETED] enoxaparin (LOVENOX) prefilled syringe 40 mg 40 mg Subcutaneous Once ??? fentaNYL (SUBLIMAZE) injection 25-100 mcg 25-100 mcg Intravenous Q5MIN PRN ??? fentaNYL (SUBLIMAZE) injection 25-50 mcg 25-50 mcg Intravenous Q5MIN PRN ??? HYDROmorphone (DILAUDID) injection 0.2-0.3 mg 0.2-0.3 mg Intravenous Q10MIN PRN ??? lactated ringers infusion 25 mL/hr Intravenous Continuous ??? [COMPLETED] lidocaine PF (XYLOCAINE) 1 % injection 0.1-0.3 mL 0.1-0.3 mL Intradermal Once And ??? lidocaine PF (XYLOCAINE) 1 % injection 0.1-0.3 mL 0.1-0.3 mL Intradermal PRN ??? meperidine (DEMEROL) injection 12.5 mg 12.5 mg Intravenous Q5MIN PRN ??? midazolam (VERSED) injection 1-2 mg 1-2 mg Intravenous Q5MIN PRN ??? naloxone (NARCAN) injection 0.08 mg 0.08 mg Intravenous PRN ??? naloxone (NARCAN) injection 0.4 mg 0.4 mg Intravenous ONCE PRN ??? ondansetron (ZOFRAN) injection 4 mg 4 mg Intravenous Q4H PRN Labs: Lab Results Component Value Date/Time SODIUM 141 05/09/2010 09:37 AM K 4.4 05/09/2010 09:37 AM CHLORIDE 103 05/09/2010 09:37 AM CREATININE 0.9 11/01/2013 02:45 PM GLUCOSE 86 11/01/2013 02:45 PM Lab Results Component Value Date/Time WBC 6.3 11/01/2013 02:45 PM HGB 13.9 09/30/2021 06:06 AM HCT 43.8 11/01/2013 02:45 PM PLTS 243 11/01/2013 02:45 PM No results found for: INR Reason a test was not performed: Post-menopausal. Blood Bank: No results found for: ABO, ABSCR EKG: No results found for this or any previous visit. Physical Exam: BP (!) 152/88 Pulse 73 Temp 36.8 ??C (98.2 ??F) (Tympanic) Resp 16 Ht 5' 5 Wt 117.7 kg (259 lb 6.4 oz) LMP (LMP Unknown) SpO2 96% BMI 43.17 kg/m?? Assessment/Plan: Review of Systems NPO Status: Acceptable. Patient does not have GERD. Patient is not a current smoker. The patient reports alcohol use. Patient denies any recent URI. History of PONV: No. History of motion sickness: No. Patient denies any personal or family history of anesthesia complications (PONV). Exam Mental Status: Alert and oriented. Mallampati score: III (Three). Mouth opening: Normal Thyromental Distance: > 3 finger breadths and Normal Neck Extension: Full Neck Circumference > 40 cm?: Yes Previous airway assessment: Previously EASY intubation., (prior difficult mask (2-handed)). Current airway assessment:Normal Dentition: Age appropriate. Cardiac Exam: Regular rate and rhythm. Respiratory Exam: Breath sounds clear to auscultation Assessment ASA Status: 3 . Plan Anesthesia type: General and ETT Induction: Intravenous and Propofol Maintenance: Inhalation Postoperative pain management (PONV): Plan for postoperative opioid use PONV Risk Score Adult: 3 PONV Prophylaxis (planned): Ondansetron and Decadron Anesthetic plan, risks, benefits and alternatives discussed with: Patient or Freight Trucker agree tothe anesthesia treatment plan. Additional equipment needed: [place] Scope 3 Morbid obesity bmi 43 with severe LEIGH (did not tolerate CPAP); mild intermittent asthma controlled The patient and/or their sales representative electric service were notified about the potential risks of damage to the lips, teeth, dental devices, mouth and airway. H&P Reviewed and Patient examined, no change observed IV access Antibiotics per surgery Electronically signed by: Tay Lowery MD 09/30/2021 7:27 AM documented in this encounter Plan of Treatment Not on filedocumented as of this encounter Visit Diagnoses Not on filedocumented in this encounter Administered Medications Inactive Administered Medications - up to 3 most recent administrations Medication Order MAR Action Action Date Dose Rate Site ceFAZolin (ANCEF) 3 g in sodium Started 09/30/2021 8:03 AM CDT 3 g chloride 0.9 % 100 mL IVPB 3 g, Intravenous, Administer over 30 Minutes, ONCE, On Wed09/30/21 at 0600, For 1 dose, Infuse within 60 minutes prior to incision. Re-dose 2 gram IV every 4 hours after initial dose until incision closed. Re-dose if more than 1.5 L of blood loss. Pharmacy may adjust for renal insufficiency., Pre-op dexamethasone (DECADRON) injection Given 09/30/2021 8:03 AM CDT 4 mg Intravenous, Starting on Wed09/30/21 at 0803, Until Wed09/30/21 at 1048 dexmedetomidine (PRECEDEX) 200 Started 09/30/2021 7:58 AM 0.5 mcg/kg/hr 7.125 mL/hr mcg in sodium chloride 0.9 % 50 CDT mL (4 mcg/mL) infusion Intravenous, Starting on Wed09/30/21 at 0758 fentaNYL (SUBLIMAZE) injection Given 09/30/2021 10:45 AM CDT 50 mcg Intravenous, Starting on Wed09/30/21 at 0752, Until Wed09/30/21 at 1048 Given 09/30/2021 9:22 AM CDT 50 mcg Given 09/30/2021 7:52 AM CDT 100 mcg glycopyrrolate (ROBINUL) injection Given 09/30/2021 8:17 AM CDT 0.1 mg Intravenous, Starting on Wed09/30/21 at 0817, Until Wed09/30/21 at 1048 HYDROmorphone (DILAUDID) injection Given 09/30/2021 9:06 AM CDT 0.5 mg Intravenous, Starting on Wed09/30/21 at 0819, Until Wed09/30/21 at 1048 Given 09/30/2021 8:19 AM CDT 0.5 mg lactated ringers Continue Current Bag 09/30/2021 10:48 AM 25 mL/hr 25 mL/hr infusion CDT 25 mL/hr, Intravenous, CONTINUOUS, Starting on Wed09/30/21 at 0600, Administer on all preop surgery patients, ages 12 and older, unless specified differently in the Protocol for Preop Initiation of IV fluids Order Set., Pre-op Started 09/30/2021 10:04 AM CDT Continue from Pre-Op 09/30/2021 7:43 AM CDT 25 mL/hr lidocaine PF (XYLOCAINE) 1 % injection Given 09/30/2021 7:52 AM CDT 50 mg Intravenous, Starting on Wed09/30/21 at 0752 midazolam (VERSED) injection Given 09/30/2021 7:46 AM CDT 1 mg Intravenous, Starting on Wed09/30/21 at 0746, Until Wed09/30/21 at 1048 ondansetron (ZOFRAN) injection Given 09/30/2021 10:12 AM CDT 4 mg Intravenous, Starting on Wed09/30/21 at 1012, Until Wed09/30/21 at 1048 phenylephrine-NaCl 0.9% (ISRRAEL-SYNEPHRINE) Given 09/30/2021 10:01 AM CDT 200 mcg injection Intravenous, Starting on Wed09/30/21 at 0931, Until Wed09/30/21 at 1048 Given 09/30/2021 9:39 AM CDT 100 mcg Given 09/30/2021 9:37 AM CDT 200 mcg propofol (DIPRIVAN) 10 mg/mL injection Given 09/30/2021 7:52 AM CDT 170 mg Intravenous, Starting on Wed09/30/21 at 0752, Until Wed09/30/21 at 1048 rocuronium (ZEMURON) injection Given 09/30/2021 10:02 AM CDT 10 mg Intravenous, Starting on Wed09/30/21 at 0806, Until Wed09/30/21 at 1048 Given 09/30/2021 9:31 AM CDT 10 mg Given 09/30/2021 9:07 AM CDT 10 mg succinylcholine (QUELICIN) injection Given 09/30/2021 7:52 AM CDT 160 mg Intravenous, Starting on Wed09/30/21 at 0752, Until Wed09/30/21 at 1048 sugammadex (BRIDION) injection Given 09/30/2021 10:28 AM CDT 200 mg Intravenous, Starting on Wed09/30/21 at 1028, Until Wed09/30/21 at 1048 documented in this encounter Care Teams Weed Burner Relationship Specialty Start Date End Date Delphine Batista MD PCP - General Family Practice 09/30/211999 [place] [address] documented as of this encounter
--- OUTSIDE RECORDS SUMMARY | 2022-02-13 12:09 | XMS_ITS | Encounter Summary ---
:1950 Author Organization [employer] Address [address] [place] [address] Care Team Providers Name Role Phone Delphine Batista MD Primary Care Provider [phone] Encounter Details Date Type Department Care Team Description 09/30/2021 Orders Only HIM DEPARTMENT Provider, Lanette franklin [place] [address] Social History Tobacco Use Types Packs/Day Years Used Date Smoking Tobacco: Never Smokeless Tobacco: Never Alcohol Use Standard Drinks/Week Comments Yes 0 (1 standard drink = 0.6 oz pure alcoho l) occasionally Sex Assigned at Date Recorded Female 01/13/2021 5:27 PM CDT documented as of this encounter Plan of Treatment Not on filedocumented as of this encounter Procedures Procedure Name Priority Date/Time Associated Diagnosis Comme nts EKG 09/30/2021 Results for thi s procedure are in the resu lts section. documented in this encounter Results EKG (09/30/2021) Narrative This result has an attachment that is no t available. Interface Provider EKG documented in this encounter Visit Diagnoses Not on filedocumented in this encounter Care Teams Press Operator Heavy Duty Relationship Specialty Start Date End Date Delphine Batista MD PCP - General Family Practice 09/30/211999 [place] [address] documented as of this encounter
--- OUTSIDE RECORDS SUMMARY | 2022-02-13 12:09 | XMS_ITS | Encounter Summary ---
:1950 Author Organization [employer] Address [address] [place] [address] Care Team Providers Name Role Phone Delphine Batista MD Primary Care Provider [phone] Reason for Referral Procedure/Equipment (Routine) - Incomplete Specialty Diagnoses / Procedures Referred By Contact Refer red To Contact Procedures Siri Mcgee, ALEX UGI W Gastrografin W LEXX [place] [address] [facility] [address] [place], [place] [address] Referral ID Status Reason Start Date Expiration Date Visits V isits Requested Authorized [id number] Incomplete 09/30/2021 12/30/2022 1 1 (Routine) - Incomplete Specialty Diagnoses / Procedures Referred By Contact Refer red To Contact Procedures Devon Cool MD STAT ECG 12 Lead Inpatient [address] [place], [place] [address] Referral ID Status Reason Start Date Expiration Date Visits V isits Requested Authorized [id number] Incomplete 09/30/2021 12/30/2022 1 1 Reason for Visit Auth/Cert Specialty Diagnoses / Procedures Referred By Contact Refer red To Contact Diagnoses Complication of gastric banding Dysphagia, unspecified type Procedures LAPAROSCOPIC REMOVAL OF ADJUSTABLE GASTRIC BAND Referral ID Status Reason Start Date Expiration Date Visits Requ ested Visits Authorized [id number] 1 1 Encounter Details Date Type Department Care Team Description 09/30/2021 - Hospital Scientologist Devon Pantoja Complicatio n of gastric banding; 10/01/2021 Encounter Surgery/Pediatrics MD Essence Dysphagia, unspecified type [address] [facility] [address] [phone] Social History Tobacco Use Types Packs/Day Years [...] 5 (165.1 cm) Wt 259 lb 6.4oz (254069 g) LMP (LMP Unknown) SpO2 (!) 91% [...] HOSPITAL COURSE: The patient was admitted to [facility] and underwent surgery, then transferred from the [address] without incident. Pt. was initiated on [...] this encounter Discharge Instructions Discharge Instr - Siri Navarrete PA-C - 09/30/2021 10:55 AM CDT Home [...] and given to patient. Prescriptions filled by [facility] pharmacy. Belongings checklist reviewed with patient and belongings sent. Care plan issues addressed and education record updated. R: Patient verbalizes understanding and teaches back discharge instructions. Patient discharged by: wheelchair with staff. Siri Jain PA-C - 10/01/2021 9:00 AM CDT DAILY [...] of this encounter: 259 lb 6.4 oz (868959 g). I/O last 3 completed shifts: In: [...] Morbid obesity with BMI of 40.0-44.9, adult ([facility]) (11/06/2015) Depressive disorder (02/09/2021) Hypothyroidism ([facility]) (02/09/2021) Complication of gastric banding (07/23/2021) Dysphagia [...] liquids Anticipate discharge later today MD [facility] Department of General Surgery Elena Gonsalves R - 10/01/2021 6:48 AM CDT SURGERY PROGRESS [...] creatinine Activity: Continue ambulating Ppx: Anticipate starting H Elena Gonsalves, Medical Student 10/01/2021, 6:48 AM [...] candidate for surgery. 09/30/2021 Source Note - Tiffany Mcgowan MD - 09/17/2021 12:00 AM CDT documented in this encounter Procedure Notes Devon Cool MD - 09/30/2021 10:29 AM CDT [facility] Operative Report PATIENT NAME: Mindi [...] PA-C, as no qualified resident available. The PA assisted in obtaining adequate surgical exposure, controlling [...] Creatinine / GFR (09/30/2021 1:08 PM CDT) [facility] Method Time Signature Creatinine 1.29 (H) 0.55 - 09/30/2021 [facility] 1.02 mg/dL 1:39 PM CDT LABORATORY GFR, Estimated 45 (L) >60 09/30/2021 [facility] mL/min/1.7 1:39 PM CDT LABORATORY 3m2 Specimen Anatomical Collection Method / Collection Time Recei bree Time (Source) Location / Volume Laterality Blood Venipuncture / 09/30/2021 1:08 09/30/2021 1:12 Unknown PM CDT PM CDT Narrative [facility] - 09/30/2021 1:39 P M CDT [...] Organization Address City/State/ZIP Code Phon e Number [facility] [address] [place] [address] Surgical Path (09/30/2021 10:12 AM CDT) Component Value Ref Test Analysis Performed At [facility] Range Method Time Signature Case Report Surgical Pathology ?Case: [id number] ? 10/03/2021 [facility] Authorizing Provider: ??Devon Hudson MD ? Collected: ? 09/30/2021 1012 ? 4:44 PM CDT LABORAT ORY Ordering Location: ? [facility] ?? Received: ?09/30/2021 1021 ? Pathologist: ? Chelo John MD ? Specimen: ?Stomach, Camryn bjorn band and its components ? FINAL A. Stomach, gastric band, removal : 10/2021 [facility] Electronically DIAGNOSIS dice table person identified (gross examination only) 4:44 PM CDT LABORATORY signed by Heather John MD on 2021 at 4:44 PM Clinical Complication of gastric banding 10/04/19 [facility] Information Dysphagia, unspecified type 4:44 PM CD T LABORATORY Gross A: 10/03/2021 [facility] Description The specimen is received balbir and labeled with the patient's name and Stomach, Gastric band and its components. The specimen consists of a gastric band labeled ? Allergan? and Port-A-Cath with a s 4:44 PM CDT LABORATORY mall amount of attached soft tissue. The Port-A-Cath is labeled ? Port-A-Cath M 12132? . No sections; gross only. AW Embedded 10/03/2021 [facility] Images 4:44 PM CDT LABORATORY Specimen Anatomical Collection Method Collection Time Receive d Time (Source) Location / / Volume Laterality Tissue STOMACH STRUCTURE 09/30/2021 10:12 2021 / Unknown AM CDT 10:21 AM CDT Devon Cool MD LAB PATHOLOGY Performing Organization Address City/State/ZIP Code Phon e Number [facility] [address] [place] [address] STAT ECG 12 Lead Inpatient (09/30/2021 6:25 AM CDT) P athologist Signature Ventricular Rate 63 BPM [facility] Atrial Rate 63 BPM [facility] P-R Interval 158 ms [facility] QRS Duration 82 ms [facility] QT 406 ms [facility] QTc 415 ms [facility] P [place] 42 degrees [facility] R [place] 43 degrees [facility] T [place] 12 degrees M[facility] Specimen (Source) Anatomical [...] MD PN ECG ORDERABLES Performing Organization Address City/State/ZIP Code Phon e Number [facility] [address] [place] [address] Hemoglobin for all patients that have a Draw and Hold, Type and Screen, or Type and Cross ordered (09/30/2021 6:06 AM CDT) athologist Signature Hemoglobin 13.9 12.0 - 15.5 09/30/2021 [facility] g/dL 6:13 AM CDT LABORATORY Specimen Anatomical Collection Method / Collection Time Recei bree Time (Source) Location / Volume Laterality Blood Venipuncture 09/30/2021 6:06 09/30/2021 6 :10 Butterfly / Unknown AM CDT AM CDT Devon Cool MD LAB_1 Performing Organization Address City/State/ZIP Code Phon e Number [facility] [address] [place] [address] Draw & Hold - Inpatient Only (09/30/2021 6:06 AM CDT) [facility] Method Time Signature BB DRAW AND Received in 09/30/2021 [facility] HOLD BB 6:34 AM CDT BLOOD BANK Specimen Anatomical Collection Method / Collection Time Recei bree Time (Source) Location / Volume Laterality Blood Venipuncture / 09/30/2021 6:06 09/30/2021 6:10 Unknown AM CDT AM CDT Devon Cool MD LAB_1 Performing Organization Address City/State/ZIP Code Phon e Number [facility] [address] [place] [address] documented in this encounter Visit Diagnoses Diagnosis Complication of gastric banding - Primar y Other complications of gastric band proc edure Dysphagia, unspecified type Sleep apnea Unspecified sleep apnea Morbid obesity with BMI of 40.0-44.9, ad ult ([facility]) Depressive disorder Depressive disorder, not elsewhere class ified Hypothyroidism ([facility]) Unspecified hypothyroidism LAP-BAND surgery status Bariatric surgery status documented in this encounter Admitting Diagnoses Diagnosis [...] Wed09/30/21 at 1230, Until Wed10/01/21 at 1244 enoxaparin (LOVENOX) prefilled Given 09/30/2021 6:42 AM [...] haloperidol (HALDOL). Start POD #1., Post -op ondansetron (ZOFRAN) injection 4 mg 4 mg, [...] at 2135, For 1 dose, Alvina Cordova: cabinet override sodium chloride 0.9% injection 10-60 mL [...] reference the Vascular Access Device Users Guide. documented in this encounter Active and Recently Administered Medications Times are shown in CDT. Scheduled Medication Order 09/29/2021 09/30/2021 10/01/2021 acetaminophen (TYLENOL) oral solution 325-650 mg(Linked Grou p 1) 1511 (See Alternative - Provider: Elena Huntley RN)2134 (See Alternative - Provider: Alvina Cordova RN) 06 (See Alternative - Provider: Alvina Cordova RN) [...] acetaminophen (TYLENOL) tablet 325-650 mg(Linked Group 1) 151 (Given - Provider: Elena Huntley RN)2134 (Given - Provider: Alvina Cordova RN) 0652 (Given - Provider: Alvina Cordova RN) 325-650 mg, Oral, QID AC, First dose on Wed09/30/21 at 1600, Until Discontinued, May start evening of surgery if tolerating oral intake. Tablet preferred, may use liquid if tablet not tolerated., Post-op ceFAZolin (ANCEF) 3 g in sodium chloride 0.9 % 100 mL IVPB ( COMPLETED) 08 (Started - Provider: Vandana Rodgers APRN, HOSE OPERATOR) 3 g, Intravenous, Administer over 30 Min [...] - Provider: Bhavana Nichole - Comment: LOT: [id number]) 70 mL, Oral, ONCE, On Wed10/01/21 at 0845, For 1 dose, Radiology levothyroxine (SYNTHROID) tablet 150 mcg 824 (Given - Provider: Zee Hollingsworth) 150 mcg, [...] ondansetron (ZOFRAN) injection 4 mg(Linked Group 2) 0047 (See Alternative - Provider: Alvina Cordova RN)0523 (See Alternative - Provider: Alvina Cordova RN) 4 mg, Intravenous, Q6H (NON-STND), First dose on Wed10/01/21 at 0000, Until Discontinued, f unable to tolerate oral. Administer anti-emetics with following priority based on effectiveness: ondansetron (Z OFRAN), LORazepam (ATIVAN), promethazine (PHENERGAN), haloperidol (HALDOL)., Post-op ondansetron (ZOFRAN) tablet 4 mg(Linked Group 2) 0047 (Given - Provider: Alvina Cordova RN)0523 (Given - Provider: Alvina Cordova RN) 4 mg, Oral, Q6H (NON-STND), First dose o n Wed10/01/21 at 0000, Until Discontinued, Starting POD 1 Administer anti-emetics with following priority based on effectiveness: ondansetron (ZOFRAN), LORazepam ( ATIVAN), promethazine (PHENERGAN), halop eridol (HALDOL). Hold PRN doses if scheduled ondansetron is ordered., Post-op pantoprazole DR (PROTONIX) tablet 40 mg 0523 (Given - Provider: Alvina Cordova RN) 40 mg, Oral, DAILY AT 0600, First dose o n Wed10/01/21 at 0600, Until Discontinued, Start post-op [...] from Pre-Op - Provider: Vandana Rodgers APRN, HOSE OPERATOR)1003 (Stopped - Provider: Vandana Rodgers APRN, HOSE OPERATOR - Comment: Switch to gravit y) 25 mL/hr, Intravenous, CONTINUOUS, Start ing on Wed09/30/21 at 0600, Administer on all preop surgery patients, ages 12 and older, unless specified differently in the Protocol for Preop Initiation of IV fluids Order Set., Pre-op 1004 (Started - Provider: Vandana Rodgers APRN, GIO)1047 (Anesthesia Fluid - Provider: Vandana Rodgers APRN, GIO)1048 (Continue Current Bag - Provider: Tess Mcdowell, [...] contreras bupivacaine-epinephrine PF (MARCAINE W/E PINEPHRINE) 0.5% -[id number] injection (CANCELED) 1010 (Given - Provider: Devon [...] MCG/ACT nasal spray 1-2 Spra y 1-2 Frederic, Both Nostrils, DAILY PRN, Rhi nitis, Allergies, [...] if oral medications are ineffective. Give after FORM COVERER is discontinued (if FORM COVERER ordered). Offer at least every 2 hours. [...] mg (COMPLETED) 180 (Given - Provider: Elena Huntley RN) 05 (Given - Provider: Alvina Cordova RN) 15 [...] additional info rmation about flushing processes, refere nce the Vascular Access Device Users Guide. tisseel (CANCELED) 0956 (Given - Provid er: Devon Cool MD - Comment: Vistaseal 4mL) ONCE PRN, Starting on Wed09/30/21 at 0956, Until Wed09/30/21 at 12 29 No Frequency Medication Order 09/29/2021 09/30/2021 10/01/2021 sodium chloride 0.9% 0.9 % injection - ADS Override Pull (CO MPLETED) 2134 (Given - Provider: Alvina Cordova RN) Starting on Wed09/30/21 at 2127, Until We d 10/01/21 at 0944, For 1 dose, Alvina Cordova: cabinet override Linked Groups Order Group 1: acetaminophen [...]
Post-op documented in this encounter Care Teams Snack Stewardess Relationship Specialty Start Date End Date Delphine Batista MD PCP - General Family Practice 09/30/211999 [place] [address] documented as of this encounter
--- OUTSIDE RECORDS SUMMARY | 2022-02-13 12:09 | XMS_ITS | Encounter Summary ---
:1950 Author Organization [employer] Address [address] [address] Care Team Providers Name Role Phone Nancy Coffey Primary Care Provider Encounter Details Date Type Department Care Team Description 07/04/2021 Notes/Orders [facility] [address] [facility] [address] [place], [place] [id number] Social History Tobacco Use Types Packs/Day Years [...] on filedocumented in this encounter Care Teams Contractor Field Hauling Relationship Specialty Start Date End Date Nancy Coffey MBBS PCP - General 11/09/12 09/29/21 [address] [facility] [address] [place] [id number] documented as of this encounter
--- OUTSIDE RECORDS SUMMARY | 2022-02-13 12:09 | XMS_ITS | Encounter Summary ---
:1950 Author Organization [employer] Address [address] [place] [address] Care Team Providers Name Role Phone Nancy Coffey Primary Care Provider Encounter Details Date Type Department Care Team Description 09/18/2021 Notes/Orders [facility] [address] [facility], [address] [place] [address] Social History Tobacco Use Types [...] on filedocumented in this encounter Care Teams Bottle Washer Relationship Specialty Start Date End Date Nancy Coffey MBBS PCP - General 11/09/12 09/29/[address] [place] [address] documented as of this encounter
--- OUTSIDE RECORDS SUMMARY | 2022-02-13 12:09 | XMS_ITS | Encounter Summary ---
:1950 Author Organization [employer] Address [address] [place] [address] Care Team Providers Name Role Phone Nancy Coffey MBBS Primary Care Provider Reason for Referral Procedure/Equipment (Routine) - Incomplete Specialty Diagnoses / Procedures Referred By Contact Refer red To Contact Diagnoses Complication of gastric banding Dysphagia, unspecified type Devon Cool MD Procedures Case Request OR - General/Vascular Surg: LAPAROSCOPIC REMOVAL OF ADJUSTABLE GASTRIC BAND [address] [place], [place] [address] Referral ID Status Reason Start Date Expiration Date Visits V isits Requested Authorized [id number] Incomplete 07/23/2021 10/22/2022 1 1 Encounter Details Date Type Department Care Team Description 07/23/2021 [facility] Devon Cool, Compli cation of gastric banding (Primary Dx); Surgery & Weight MD Dysphagia, unspecified type Center [address] [facility] [address] [facility] [address] [place] [address] [id number] [phone] Social History Tobacco Use Types Packs/Day Years [...] - - Weight 117.9 kg (260 lb) 07/23/2021 9:08 AM CDT Height 165.1 cm (5' 5) 07/23/2021 9:08 AM CDT Body Mass Index 43.27 07/23/2021 9:08 AM CDT documented in this encounter Patient Instructions Patient InstructionsSheba Cortez RN - 07/23/2021 1:07 PM CDT Your Covid screening has been scheduled and should be completed no more than 72 hours before your scheduled surgery. If this is not completed as ordered your surgery will be rescheduled. The pre procedure nurses will be calling you a day or two before your scheduled surgery. They will provide you with updated times for your surgery and when to arrive at the hospital. Verify with them if family/friends are allowed to accompany you to the hospital due to the Covid-19 restrictions. Our organization recommends patients do not receive any vaccination--including for Covid-19--within 72 hours of a scheduled procedure including surgery. This is to prevent any vaccination reactions from being confused with a complication from your procedure. Likewise, we recommend you wait for at least 7 days after your procedure to be vaccinated. Again, this is to prevent any vaccination reactions from being confused with a post-procedure or post-surgical complication. Once scheduled for surgery, please discuss use of/holding of all medications prior to surgery with prescribing provider. 10 days before surgery: Begin your high protein liquid diet. If, after starting your high protein liquid diet, you become constipated, begin adding one capful ofMiralax to a beverage each day until your surgery- stop if you develop loose stools. Stop all herbal supplements, fish oil, or flaxseed that you may be taking Discontinue the use of NSAIDS (ibuprofen, Advil, Aleve, Motrin, etc.) and aspirin. Tylenol is ok. 7 days before surgery: You will receive a courtesy call from your nurse. Add one capful of Miralax to a beverage each day until your surgery- stop if you develop loose stools The day before surgery: Discontinue the high protein liquid diet and have clear liquids only. Nothing by mouth after midnight except the medications you are instructed to take. When showering before surgery, please clean well inside your naval as there will be an incision nearthere. Use CHG wipes that were given to you at surgeon consult as directed. The day of surgery: Be sure you have necessary food items in the home prior to surgery, i.e. clear juices, clear broth, sugar free jello, sugar free fluids, etc. Review the surgery and follow-up sections of your care guide and bring it with you to the hospital and to all future appointments. If you use CPAP, clean the machine well and bring it with you to the hospital. Someone from the sleep center will contact you before surgery. You may go home from the hospital on an injectible medication called Lovenox to help prevent blood clots. If so, the staff in the hospital will provide you with further teaching regarding this. Contact the [facility] with any new medical concerns occurring within 30 days (before or after) of surgery [phone] No non-urgent surgical procedures or long distance travel within 30 days (before or after) of weight loss surgery. NO travel for 30 days after surgery. Sheba YE CBN documented in this encounter Progress Notes Devon Cool MD - 07/23/2021 9:20 AM CDT [facility] Bariatric Surgery Consult Mindi Caba is a 70 y.o. female patient of Jose G Aly who presents for consultation regarding a complication of adjustable gastric banding. This service was provided via telehealth and conducted using a synchronous audio video link. Location of clinician: clinic Location of patient: home. Billing based on: Medical decision making and complexity. HPI: She has had problems with obesity since early adulthood. She has attempted weight loss in the past with diet and exercise and underwent lap band placement in [address] Auguste but did not achieve exterminator results. More recently she has developed trouble with her band with recurrent dysphagia and heartburn. She has undergone UGI which reveals distal esophageal dysmotility. EGD demonstrated a tortuous distal esophagus otherwise band site was unremarkable. She has considered conversion to another procedure but at this time is not interested. She would like to have her band removed. Her abdominal surgical history is limited to lap band, lap cholecystectomy. Estimated body mass index is 43.27 kg/m?? as calculated from the following: Height as of this encounter: 5' 5 (165.1 cm). Weight as of this encounter: 260 lb (949563 g). Patient Active Problem List Diagnosis ??? Sleep apnea ??? LAP-BAND surgery status ??? Morbid obesity with BMI of 40.0-44.9, adult (HRC) ??? Depressive disorder ??? Hypothyroidism (HR) PMHx/SHx/FHx: Past Medical History: Diagnosis Date ??? Laparoscopic adjustable gastric band, APS 05/14/2009 ??? Laparoscopic adjustable gastric band, APS 05/14/2009 ??? Obesity ([facility]C) 03/09/2012 Past Surgical History: Procedure Laterality Date ??? GASTRIC RESTRICTION SURGERY LW Problem: Bariatric Surgery s/p LW Modifier: adjustable gastric band, APS No family history on file. Social History Socioeconomic History ??? Marital status: Spouse name: Not on file ??? Number of children: Not on file ??? Years of education: Not on file ??? Highest education level: Not on file Occupational History ??? Not on file Tobacco Use ??? Smoking status: Never Smoker ??? Smokeless tobacco: Never Used Vaping Use ??? Vaping Use: Never used Substance and Sexual Activity ??? Alcohol use: Yes Alcohol/week: 0.0 standard drinks Comment: occasionally ??? Drug use: Never ??? Sexual activity: Not on file Other Topics Concern ??? Not on file Social History Narrative ??? Not on file Social Determinants of Health Financial Resource Strain: Not on file Food Insecurity: Not on file Transportation Needs: Not on file Physical Activity: Not on file Intimate Partner Violence: Not on file Housing Stability: Not on file Medications/Allergies: ASTELIN 137 MCG/SPRAY NA SOLN, 2 sprays in the morning , Disp: , Rfl: BUDEPRION XL 300 MG OR TB24, 1 tablet daily , Disp: , Rfl: cholecalciferol (VITAMIND3) 2000 UNITS tablet, Take 1 tablet by mouth daily (every 24 hours). Indications: PREVENTION OF VITAMIN D DEFICIENCY, Disp: , Rfl: estrogens, conjugated (PREMARIN) 0.625 MG/GM vaginal cream, Insert 1 Applicatorful vaginally., Disp:, Rfl: Famotidine-Ca Carb-Mag Hydrox 10-800-165 MG, Chew and swallow 1 Tablet by mouth daily., Disp: , Rfl: fexofenadine (CECI) 180 MG tablet, , Disp: , Rfl: FLUTICASONE PROPIONATE HFA 44 MCG/ACT IN AERO, 1 spray twice daily , Disp: , Rfl: guaiFENesin (MUCINEX) 600 MG 12 hour release tablet, Take 600 mg by mouth at bedtime as needed., Disp: , Rfl: levothyroxine (AKA SYNTHROID) 137 MCG tablet, Take 137 mcg by mouth daily., Disp: , Rfl: levothyroxine (SYNTHROID) 125 MCG tablet, Take 150 mcg by mouth., Disp: , Rfl: levothyroxine (SYNTHROID) 137 MCG tablet, Take 1 tablet by mouth daily (every 24 hours). LW Addl Instr:Indicated for: Hypothyroidism, Disp: , Rfl: Melatonin 5 MG, , Disp: , Rfl: mirtazapine (REMERON) 30 MG tablet, Take 1 mg by mouth nightly., Disp: , Rfl: mirtazapine (REMERON) 45 MG tablet, , Disp: , Rfl: Naproxen Sod-diphenhydrAMINE (ALEVE PM) 220-25 MG TABS, , Disp: , Rfl: omeprazole (PRILOSEC) 20 MG capsule, Take 1 Capsule by mouth., Disp: , Rfl: oxybutynin (DITROPANXL) 10 MG 24 hour release tablet, Take 10 mg by mouth., Disp: , Rfl: PROAIR HFA 108 (90 BASE) MCG/ACT IN AERS, Inhale 2 puffs by mouth every 4-6 hours as needed for breathing difficulties. Do not use more than 12 puffs in 24 hours., Disp: , Rfl: rOPINIRole (REQUIP) 1 MG tablet, Take 1 Tablet by mouth., Disp: , Rfl: rOPINIRole (REQUIP) 2 MG tablet, , Disp: , Rfl: simvastatin (ZOCOR) 20 MG tablet, , Disp: , Rfl: simvastatin (ZOCOR) 40 MG tablet, Take 1 tablet by mouth every evening. LW Addl Instr:Indicated for:High Cholesterol, Disp: 90, Rfl: 3 triamcinolone (NASACORT AQ) 55 MCG/ACT nasal inhaler, , Disp: , Rfl: TYLENOL PM EXTRA STRENGTH 500-25 MG OR TABS, 1 tablet daily , Disp: , Rfl: Zinc Acetate 25 MG, Take 50 mg by mouth., Disp: , Rfl: No current facility-administered medications on file as of 07/23/2021. Dust, Molds & smuts, Other, and Pollen extract Prior abdominal surgery: cholecystectomy Laparoscopic, lap band Review Of Systems: A 10 organ system review of systems was completed and negative except for the aforementioned in the HPI and the following: none Physical Exam: Vitals: Ht 5' 5 (165.1 cm) Wt 260 lb (819896 g) BMI 43.27 kg/m?? Weight at start of program: 260 lbs. Deferred as video visit. Right upper quadrant ultrasound was not performed. As patient had prior cholecystectomy. Assessment: Morbid obesity. Mnidi Caba is a 70 y.o. female who has had unsucessful attempts at weight loss including a prior lap band placement. She is now struggling with dysphagia and reflux symptoms with imaging evidence of esophageal dysmotility. She desires band removal and does not want another weight loss procedure at this time. We discussed this and it seems like a reasonable plan for her. Plan: Pre op Liquid diet: 10 days Plan for lap band removal. Discussed procedure and post op recovery at length. Including risks, benefits and likelyt complications including bleeding, infection, gastric or esophageal injury or leak. If a hiatal hernia is noted at time of band removal we would plan on concurrent repair. She understands these risks and wishes to proceed. Devon Cool MD [facility] Department of General Surgery documented in this encounter Nursing Notes Sheba Cortez RN - 07/23/2021 9:20 AM CDT Pt [place] [address] Auguste. Is interested in band out only, no conversion at this time. Will need PA Still having heartburn-wakes her up at night EGD 02/26/21 PS UGI 01/27/21-dysmotility Wt- 260 Ht- 65 BMI 43.27 Will need preop 10 day protein liquid diet? Pre lap band wt 275 and post low 200 documented in this encounter Plan of Treatment Not on filedocumented as of this encounter Results 2019 Novel Coronavirus (COVID-19) (2021 10:54 AM CDT) [facility] Method Time Signature COVID-19 Not Not [facility] Interpretation Detected Detected 9:39 PM [facility]AL [facility] CDT Source Nares, left [facility] and right 9:39 PM [facility] CDT Specimen Anatomical Collection Method Collection Time Receive d Time (Source) Location / / Volume Laterality Swab (Source Non-blood 2021 10:54 2021 Required) Collection / AM CDT 10:58 AM CDT Unknown Narrative [facility] - 2021 9:39 PM CDT Test performed by Physical Therapy Nurse Mediated Amplification. TMA has been shown to be equivalent to commercial real-time PCR t ests. This test has been authorized by the FDA under Emergency Use Authorization (E UA) for use by authorized laboratories. Devon Cool MD LAB_1 Performing Organization Address City/State/ZIP Code Phon e Number [facility] [address] [address] documented in this encounter Visit Diagnoses Diagnosis Complication of gastric banding - Primar y Other complications of gastric band proc edure Dysphagia, unspecified type documented in this encounter Care Teams Quantitative Developer Relationship Specialty Start Date End Date Nancy Coffey MBBS PCP - General 11/09/12 09/29/21 [address] [facility] [address] [address] [place] [address] documented as of this encounter
--- OUTSIDE RECORDS SUMMARY | 2022-02-13 12:09 | XMS_ITS | Encounter Summary ---
:1950 Author Organization [employer] Address [address], [place] [address] Care Team Providers Name Role Phone Nancy Coffey [facility] [place] Primary Care Provider Reason for Visit Procedure/Equipment (Routine) - Incomplete Specialty Diagnoses / Procedures Referred By Contact Refer red To Contact Diagnoses LAP-BAND surgery status Gastroesophageal reflux disease, unspecified whether esophagitis present Dysphagia, unspecified type Jose G Aly PA-C Procedures [place] UGI W Esophagus [address] [facility] [address] [place], [place] [address] Referral ID Status Reason Start Date Expiration Date Visits V isits Requested Authorized [id number] Incomplete 01/15/2021 04/16/2022 1 1 Encounter Details Date Type Department Care Team Description 01/27/[address] [facility] [address], LAP-BAND surgery status; Procedure Radiology Jose G Pierre PA-C Gastroesophageal reflux disease, unspeci fied whether esophagitis present; [address] [facility] [address] [place] Dysphag ia, unspecified type [address] [facility] [address] [place] [address] PA [id number] Social History Tobacco Use Types Packs/Day Years [...] Name Priority Date/Time Associated Diagnosis Comme nts [place] UGI W ESOPHAGUS Routine 01/27/2021 10:55 AM LAP-BAND surger y Results for this CDT status procedure are in Gastroesophageal the results reflux disease, section. unspecified whether esophagitis pres ent Dysphagia, unspecified type documented in this encounter Results [place] UGI W Esophagus (01/27/2021 10:55 AM CDT) Anatomical Region Laterality Modality Chest, Abdomen, Neck Digital Radiography Specimen (Source) Anatomical Collection Method Collection Time Re ceived Time Location / / Volume Laterality 01/27/2021 10:32 AM CDT Impressions 01/27/2021 11:13 AM CDT COMPARISON: ??10/18/2015 FINDINGS: ??The patient swallowed barium without difficulty. A laparoscopic gastric band appears in stable, satisfactory position. Barium passes without significant obstruction. The esophagus is mildly tortuous with multiple tertiary contract ions. In the supine position there is a large amount of reflux present. No esophageal strictures or masses. Visualized stomach unremarkable. IMPRESSION: ?? 1. Gastric band in satisfactory position . 2. Tortuous esophagus with multiple tert iary contractions. 3. Large amount of esophageal reflux in the supine position. Procedure Note Chris Guardado MD - 01/27/2021Formatti ng of this note might be different from the original. IMPRESSION COMPARISON: 10/18/2015 FINDINGS: The patient swallowed barium w ithout difficulty. A laparoscopic gastric band appears in stable, satisfactory position. Barium passes without significant obstruction. The esophagus is mildly tortuous with multiple tertiary contractions. In the s upine position there is a large amount of reflux present. No esophageal strictures or masses. Visualized stomach unremarkable. IMPRESSION: 1. Gastric band in satisfactory position . 2. Tortuous esophagus with multiple tert iary contractions. 3. Large amount of esophageal reflux in the supine position. Jose G Aly PA-C RAD [place] documented in this encounter Visit Diagnoses Diagnosis LAP-BAND surgery status Bariatric surgery status Gastroesophageal reflux disease, unspeci fied whether esophagitis present Dysphagia, unspecified type documented in this encounter Administered Medications Inactive Administered Medications - up to 3 most recent administrations Medication Order MAR Action Action Date Dose Rate Site barium sulfate (E-Z DOSE) 105 % Given 01/27/2021 10:30 AM CDT 65 0 mL enema 650 mL 650 mL, Rectal, ONCE, On 01/27/21 at 1115, For 1 dose documented in this encounter Care Teams Animal Ecologist Relationship Specialty Start Date End Date Nancy Coffey MBBS PCP - General 11/09/12 09/29/21 [address] [facility] [address] [place] [address] documented as of this encounter
--- OUTSIDE RECORDS SUMMARY | 2022-02-13 12:09 | XMS_ITS | Encounter Summary ---
:1950 Author Organization [employer] Address [address], [place] [address] Care Team Providers Name Role Phone Nancy Coffey Primary Care Provider Reason for Visit Reason Comments APPOINTMENT REQUEST Band Removal Encounter Details Date Type Department Care Team Description 06/05/2021 Telephone [facility] José Antonio Smallwood AP POINTMENT REQUEST & Weight Center RN (Band Removal) [address] [facility] [address] [place] [address] Social History Tobacco Use Types Packs/Day Years Used Date Smoking Tobacco: Never Smokeless Tobacco: Never Alcohol Use Standard Drinks/Week Comments Yes 0 (1 standard drink = 0.6 oz pure alcoho l) occasionally Sex Assigned at Date Recorded Female 01/13/2021 5:27 PM CDT documented as of this encounter Nursing Notes José Antonio Smallwood RN - 06/05/2021 1:36 PM CST Pt called requesting appt for band removal. According to pt, she has been experiencing heartburn andthrowing up something. Pt was transferred to frontline desk for scheduling. [employer] documented in this encounter Plan of Treatment Not on filedocumented as of this encounter Visit Diagnoses Not on filedocumented in this encounter Care Teams Wagon Driver Salesperson Relationship Specialty Start Date End Date Nancy Coffey MBBS PCP - General 11/09/12 09/29/21 [address] [facility] [address] [place] [address] documented as of this encounter
--- OUTSIDE RECORDS SUMMARY | 2022-02-13 12:09 | XMS_ITS | Encounter Summary ---
:1950 Author Organization [employer] Address [address] [place] [address] Care Team Providers Name Role Phone Nancy Coffey [facility] [place] Primary Care Provider Reason for Referral Procedure/Equipment (Routine) - New Request Specialty Diagnoses / Procedures Referred By Contact Refer red To Contact Diagnoses LAP-BAND surgery status Gastroesophageal reflux disease, unspecified whether esophagitis present Dysphagia, unspecified type Jose G Aly PA-C Procedures EGD [address] [phone] Referral ID Status Reason Start Date Expiration Date Visits V isits Requested Authorized [id number] New Request 01/15/2021 04/16/2022 1 1 [employer]IAL HANDL[employer] FLOORPERSON Reason for Visit Procedure/Equipment (Routine) - New Request Specialty Diagnoses / Procedures Referred By Contact Refer red To Contact Diagnoses LAP-BAND surgery status Gastroesophageal reflux disease, unspecified whether esophagitis present Dysphagia, unspecified type Jose G Aly PA-C Procedures EGD [address] [address] Referral ID Status Reason Start Date Expiration Date Visits V isits Requested Authorized [id number] New Request 01/15/2021 04/16/2022 1 1 Encounter Details Date Type Department Care Team Description 02/26/2021 [facility] Devon Cool surgery status; Encounter [address] End[facility] [place] Gastroesophageal reflux disease, unspeci fied whether esophagitis present; [address] [place] [address] [place] Dysphagia, unspecified type [address] [place] [facility] [place] [address] [place] [address] [phone] Social History Tobacco Use Types Packs/Day Years Used Date Smoking Tobacco: Never Smokeless Tobacco: Never Alcohol Use Standard Drinks/Week Comments Yes 0 (1 standard drink = 0.6 oz pure alcoho l) occasionally Sex Assigned at Date Recorded Female 01/13/2021 5:27 PM CDT documented as of this encounter Last Filed Vital Signs Vital Sign Reading Time Taken Comments Blood Pressure 120/60 02/26/2021 2:30 PM MATERIAL HANDLER FLOORPERSON Pulse 63 02/26/2021 2:30 PM MATERIAL HANDLER FLOORPERSON Temperature - - Respiratory Rate 18 02/26/2021 2:30 PM MATERIAL HANDLER FLOORPERSON Oxygen Saturation 95% 02/26/2021 2:30 PM MATERIAL HANDLER FLOORPERSON Inhaled Oxygen Concentration - - Weight 117.9 kg (260 lb) 02/26/2021 1:13 PM MATERIAL HANDLER FLOORPERSON Height 165.1 cm (5' 5) 02/26/2021 1:13 PM MATERIAL HANDLER FLOORPERSON Body Mass Index 43.27 02/26/2021 1:13 PM MATERIAL HANDLER FLOORPERSON documented in this encounter Medications at Time of Discharge Medication Sig Dispensed Refills Start Date End Date ASTELIN 137 MCG/SPRAY 2 sprays in the 0 NA SOLN morning BUDEPRION XL 300 MG OR [...] hour release at bedtime as needed. tablet Melatonin 5 MG 0 01/13/2021 mirtazapine (REMERON) 0 12/25/2020 45 MG tablet oxybutynin (DITROPANXL) Take 10 mg by mouth. 0 10 MG 24 hour release tablet PROAIR HFA 108 (90 Inhale 2 puffs by 0 BASE) MCG/ACT IN AERS mouth every 4-6 hours as needed for breathing difficulties. Do not use more than 12 puffs in 24 hours. rOPINIRole (REQUIP) 2 0 01/02/2021 MG tablet simvastatin (ZOCOR) 20 0 12/25/2020 MG tablet triamcinolone (NASACORT 0 10/28/2019 AQ) 55 MCG/ACT nasal inhaler TYLENOL PM EXTRA 1 tablet daily 0 STRENGTH 500-25 MG OR TABS Zinc Acetate 25 MG Take 50 mg by mouth. 0 levothyroxine (AKA Take 137 mcg by mouth 0 10/01/2021 SYNTHROID) 137 MCG daily. tablet levothyroxine Take 150 mcg by mouth. 0 10/01/2021 (SYNTHROID) 125 MCG tablet levothyroxine Take 1 tablet by mouth 0 07/10/2009 10/01/2021 (SYNTHROID) 137 MCG daily (every 24 tablet hours). LW Addl Instr:Indicated for: Hypothyroidism mirtazapine (REMERON) Take 1 mg by mouth 0 201110/01/2021 30 MG tablet nightly. Naproxen 0 2019 10/01/2021 Sod-diphenhydrAMINE (ALEVE PM) 220-25 MG TABS omeprazole (PRILOSEC) Take 1 Capsule by 0 07/16/2 016 10/01/2021 20 MG capsule mouth. rOPINIRole (REQUIP) 1 Take 1 Tablet by 0 09/25/19 15 10/01/2021 MG tablet mouth. simvastatin (ZOCOR) 40 Take 1 tablet by mouth 90 3 0 11/22/2008 10/01/2021 MG tablet every evening. LW Addl Instr:Indicated for: High Cholesterol documented as of this encounter Progress Notes Amanda Chau, RN - 02/26/2021 1:40 PM CST Patient tolerated procedure. Vitals charted per department protocol.Encourage deep breathing for sats 90% or below. Oxygen used for the procedure 2-5 liters. RIAL HANDLER FLOORPERSON Marco A Gonzalez RN - 02/26/2021 1:40 PM CST Pt meets discharge criteria. Vital signs stable, no complaint of discomfort or pain. Pt. has received, understands and signed for discharge instructions. Left via family for support. RIAL HANDLER FLOORPERSON documented in this encounter Procedure Notes Devon Cool MD - 02/26/2021 1:02 PM CST Patient Name: Mindi Muse Procedure Date: 02/26/2021 1:02 PM Date of : 1950 Admit Type: Outpatient Age: 70 Gender: Female Note Status: Finalized Attending MD: Devon Cool MD Procedure: Upper GI endoscopy Indications: Mindi Muse is a 70 yo woman with a history of previous lap band placement for morbid obesity. She has developed worsening dysphagia and heartburn over the last 6 months despite prior trial of prilosec and now BID pepcid. Upper GI suggests tertiary conctractions. She presents today for further evaluation. Dysphagia, Heartburn, Postoperative assessment Providers: Devon Cool MD, Amanda Chau Referring MD: Jose G Aly Medicines: Midazolam 2 mg IV, Fentanyl 100 micrograms IV, Benzocaine spray Complications: No immediate complications. Procedure: Pre-Anesthesia Assessment: - Prior to the procedure, a History and Physical was performed, and patient medications and allergies were reviewed. The patient is competent. The risks and benefits of the procedure and the sedation options and risks were discussed with the patient. All questions were answered and informed consent was obtained. Patient identification and proposed procedure were verified by the physician and the nurse in the procedure room. Mental Status Examination: alert and oriented. Airway Examination: normal oropharyngeal airway and neck mobility. Respiratory Examination: clear to auscultation. CV Examination: normal. ASA Grade Assessment: II - A patient with mild systemic disease. After reviewing the risks and benefits, the patient was deemed in satisfactory condition to undergo the procedure. The anesthesia plan was to use moderate sedation / analgesia (conscious sedation). Immediately prior to administration of medications, the patient was re-assessed for adequacy to receive sedatives. The heart rate, respiratory rate, oxygen saturations, blood pressure, adequacy of pulmonary ventilation, and response to care were monitored throughout the procedure. The physical status of the patient was re-assessed after the procedure. After obtaining informed consent, the endoscope was passed under direct vision. Throughout the procedure, the patient's blood pressure, pulse, and oxygen saturations were monitored continuously. The [id number] was introduced through the mouth, and advanced to the second part of duodenum. The upper GI endoscopy was accomplished without difficulty. The patient tolerated the procedure well. Findings: The examined duodenum was normal. Evidence of an adjustable gastric banding was found in the cardia. This was characterized by healthy appearing mucosa. No evidence of band erosion. The exam of the stomach was otherwise normal. The Z-line was regular. The distal esophagus was moderately tortuous. The exam of the esophagus was otherwise normal. Moderate Sedation: Moderate (conscious) sedation was administered by the endoscopy nurse and supervised by the endoscopist. The following parameters were monitored: oxygen saturation, heart rate, blood pressure, and response to care. Total physician intraservice time was 10 minutes. Impression: - Normal examined duodenum. - An adjustable gastric banding was found, characterized by healthy appearing mucosa. - Z-line regular. - Tortuous esophagus. - No specimens collected. Recommendation: - Discharge patient to home. - Resume previous diet. - Continue present medications. - Return to Bariatric clinic. Procedure Code(s): --- Professional --- 54327, Esophagogastroduodenoscopy, flexible, transoral; diagnostic, including collection of specimen(s) by brushing or washing, when performed (separate procedure) G0500, Moderate sedation services provided by the same physician or other qualified health career technical education teacher performing a gastrointestinal endoscopic service that sedation supports, requiring the presence of an independent trained observer to assist in the monitoring of the patient's level of consciousness and physiological status; initial 15 minutes of intra-service time; patient age 5 years or older (additional time may be reported with 35502, as appropriate) Diagnosis Code(s): --- Professional --- Z98.84, Bariatric surgery status Q39.9, Congenital malformation of esophagus, unspecified R13.10, Dysphagia, unspecified R12, Heartburn Z09, Encounter for follow-up examination after completed treatment for conditions other than malignant neoplasm CPT copyright 2019 [employer]. All rights reserved. The codes documented in this report are preliminary and upon production material coordinator review may be revised to meet current compliance requirements. Devon Cool MD 02/26/2021 2:19:19 PM Number of Addenda: 0 Note Initiated On: 02/26/2021 1:02 PM Endoscopy Report R[employer] HAND[employer] FLOORPERSON documented in this encounter Plan of Treatment Not on filedocumented as of this encounter Procedures Procedure Name Priority Date/Time Associated Comments Diagnosis ENDO ESOPHAGOGASTRODUODENOSCOPY Routine 02/26/2021 LAP-BAND surgery Results for (EGD) 1:02 PM MATERIAL HANDLER FLOORPERSON status this procedure Gastroesophageal are in the reflux disease, results unspecified section. whether esophagitis present Dysphagia, unspecified type documented in this encounter Results EGD (02/26/2021 1:02 PM MATERIAL HANDLER FLOORPERSON) Specimen (Source) Anatomical Collection Method Collection Time Re ceived Time Location / / Volume Laterality 02/26/2021 1:02 PM MATERIAL HANDLER FLOORPERSON Narrative [facility] ([facility]) - 02/26/2021 1:02 PM MATERIAL HANDLER FLOORPERSON Patient Name: Mindi Muse Procedure Date: 02/26/2021 1:02 PM Date of : 1950 Admit Type: Outpatient Age: 70 Gender: Female Note Status: Finalized Attending MD: Devon Cool MD Procedure: ? Upper GI endos copy Indications: ? Mindi callahan is a 70 yo woman ? with a hi story of previous lap band ? placement for morbid obesity. She has ? developed worsening dysphagia and ? heartburn over the last 6 months ? despite p rior trial of prilosec and ? now BID p epcid. Upper GI suggests ? tertiary conctractions. She presents ? today for further evaluation. ? Dysphagia , Heartburn, Postoperative ? assessmen t Providers: ? Devon vega MD, Amanda Chau Referring MD: ?Jose G guillen Medicines: ? Midazolam 2 mg IV, Fentanyl 100 ? microgram s IV, Benzocaine spray Complications: ? No immediate com plications. Procedure: ? Pre-Anesthesia Assessment: ? - Prior t o the procedure, a History ? and Physi jie was performed, and ? patient m edications and allergies ? were revi ewed. The patient is ? competent . The risks and benefits of ? the proce dure and the sedation ? options a nd risks were discussed with ? the patie nt. All questions were ? answered and informed consent was ? obtained. Patient identification and ? proposed procedure were verified by ? the physi luis and the nurse in the ? procedure room. Mental Status ? Examinati on: alert and oriented. ? Airway Ex amination: normal ? oropharyn geal airway and neck ? mobility. Respiratory Examination: ? clear to auscultation. CV ? Examinati on: normal. ASA Grade ? Assessmen t: II - A patient with mild ? systemic disease. After reviewing the ? risks and benefits, the patient was ? deemed in satisfactory condition to ? undergo t he procedure. The anesthesia ? plan was to use moderate sedation / ? analgesia (conscious sedation). ? Immediate ly prior to administration ? of medica tions, the patient was ? re-assess ed for adequacy to receive ? sedatives . The heart rate, ? respirato ry rate, oxygen saturations, ? blood pre ssure, adequacy of pulmonary ? ventilati on, and response to care ? were li tored throughout the ? procedure . The physical status of the ? patient w as re-assessed after the ? procedure . ? After obt aining informed consent, the ? endoscope was passed under direct ? vision. T hroughout the procedure, the ? patient's blood pressure, pulse, and ? oxygen sa turations were monitored ? continuou sly. The [id number] was ? introduce d through the mouth, and ? advanced to the second part of ? duodenum. The upper GI endoscopy was ? accomplis hed without difficulty. The ? patient t olerated the procedure well. Findings: ? The examined duodenum was normal. ? Evidence of an adjustable gastric banding was found ? in the cardia. This was character ized by healthy ? appearing mucosa. No evidence of band erosion. ? The exam of the stomach was other martins normal. ? The Z-line was regular. ? The distal esophagus was moderate ly tortuous. ? The exam of the esophagus was oth erwise normal. Moderate Sedation: ? Moderate (conscious) sedation was administered by the ? endoscopy nurse and supervised by the endoscopist. ? The following parameters were mon itored: oxygen ? saturation, heart rate, blood pre ssure, and response ? to care. Total physician intraser vice time was 10 ? minutes. Impression: ?- Normal exami kayy duodenum. ? - An adju stable gastric banding was ? found, ch aracterized by healthy ? appearing mucosa. ? - Z-line regular. ? - Tortuou s esophagus. ? - No spec imens collected. Recommendation: ?- Discharge adarsh ent to home. ? - Resume previous diet. ? - Continu e present medications. ? - Return to Bariatric clinic. Procedure Code(s): ?? --- Professional - -- ? 56633, Es ophagogastroduodenoscopy, ? flexible, transoral; diagnostic, ? including collection of specimen(s) ? by brushi ng or washing, when ? performed (separate procedure) ? G0500, Mo derate sedation services ? provided by the same physician or ? other [facility] health care ? professio nal performing a ? gastroint estinal endoscopic service ? that anam tion supports, requiring the ? presence of an independent trained ? observer to assist in the monitoring ? of the pa tient's level of ? conscious ness and physiological ? status; i nitial 15 minutes of ? intra-ser vice time; patient age 5 ? years or older (additional time may ? be report ed with 51989, as ? appropria te) Diagnosis Code(s): ?? --- Professional - -- ? Z98.84, B ariatric surgery status ? 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 R13.10, D ysphagia, unspecified ? R12, Hear tburn ? Z09, Enco unter for follow-up ? examinati on after completed treatment ? for condi tions other than malignant ? neoplasm CPT copyright 2019 [employer]. All rights reserved. The codes documented in this report are preliminary and upon production material coordinator review may be revised to meet current compliance requirements. Devon Cool MD 02/26/2021 2:19:19 PM Number of Addenda: 0 Note Initiated On: 02/26/2021 1:02 PM ? Endoscopy Report Procedure Note Provider, MD Tiffany - 02/26/2021Form atting of this note might be different from the original. Patient Name: Mindi Muse Procedure Date: 02/26/2021 1:02 PM Date of : 1950 Admit Type: Outpatient Age: 70 Gender: Female Note Status: Finalized Attending MD: Devon Cool MD Procedure: Upper GI endoscopy Indications: Mindi Muse is a 70 y o woman with a history of previous lap band placement for morbid obesity. She has developed worsening dysphagia and heartburn over the last 6 months despite prior trial of prilosec and now BID pepcid. Upper GI suggests tertiary conctractions. She presents today for further evaluation. Dysphagia, Heartburn, Postoperative assessment Providers: Devon Cool MD, Amanda Chau Referring MD: Jose G Aly Medicines: Midazolam 2 mg IV, Fentanyl 1 00 micrograms IV, Benzocaine spray Complications: No immediate complication s. Procedure: Pre-Anesthesia Assessment: - Prior to the procedure, a History and Physical was performed, and patient medications and allergies were reviewed. The patient is competent. The risks and benefits of the procedure and the sedation options and risks were discussed with the patient. All questions were answered and informed consent was obtained. Patient identification and proposed procedure were verified by the physician and the nurse in the procedure room. Mental Status Examination: alert and oriented. Airway Examination: normal oropharyngeal airway and neck mobility. Respiratory Examination: clear to auscultation. CV Examination: normal. ASA Grade Assessment: II - A patient with mild systemic disease. After reviewing the risks and benefits, the patient was deemed in satisfactory condition to undergo the procedure. The anesthesia plan was to use moderate sedation / analgesia (conscious sedation). Immediately prior to administration of medications, the patient was re-assessed for adequacy to receive sedatives. The heart rate, respiratory rate, oxygen saturations, blood pressure, adequacy of pulmonary ventilation, and response to care were monitored throughout the procedure. The physical status of the patient was re-assessed after the procedure. After obtaining informed consent, the endoscope was passed under direct vision. Throughout the procedure, the patient's blood pressure, pulse, and oxygen saturations were monitored continuously. The OCI-[id number] was introduced through the mouth, and advanced to the second part of duodenum. The upper GI endoscopy was accomplished without difficulty. The patient tolerated the procedure well. Findings: The examined duodenum was normal. Evidence of an adjustable gastric vita ng was found in the cardia. This was characterized b y healthy appearing mucosa. No evidence of band e rosion. The exam of the stomach was otherwise n ormal. The Z-line was regular. The distal esophagus was moderately tor tuous. The exam of the esophagus was otherwise normal. Moderate Sedation: Moderate (conscious) sedation was admin istered by the endoscopy nurse and supervised by the e ndoscopist. The following parameters were monitored : oxygen saturation, heart rate, blood pressure, and response to care. Total physician intraservice t higinio was 10 minutes. Impression: - Normal examined duodenum. - An adjustable gastric banding was found, characterized by healthy appearing mucosa. - Z-line regular. - Tortuous esophagus. - No specimens collected. Recommendation: - Discharge patient to [facility]. - Resume previous diet. - Continue present medications. - Return to Bariatric clinic. Procedure Code(s): --- Professional --- 36801, Esophagogastroduodenoscopy, flexible, transoral; diagnostic, including collection of specimen(s) by brushing or washing, when performed (separate procedure) G0500, Moderate sedation services provided by the same physician or other qualified health career technical education teacher performing a gastrointestinal endoscopic service that sedation supports, requiring the presence of an independent trained observer to assist in the monitoring of the patient's level of consciousness and physiological status; initial 15 minutes of intra-service time; patient age 5 years or older (additional time may be reported with 42346, as appropriate) Diagnosis Code(s): --- Professional --- Z98.84, Bariatric surgery status Q39.9, Congenital malformation of esophagus, unspecified R13.10, Dysphagia, unspecified R12, Heartburn Z09, Encounter for follow-up examination after completed treatment for conditions other than malignant neoplasm CPT copyright 2019 [employer]. All rights reserved. The codes documented in this report are preliminary and upon production material coordinator review may be revised to meet current compliance requirements. Devon Cool MD 02/26/2021 2:19:19 PM Number of Addenda: 0 Note Initiated On: 02/26/2021 1:02 PM Endoscopy Report Jose G NIEVES [facility] PROCEDURE ORDERABLES Performing Organization Address City/State/ZIP Code Phon e Number [facility] ([facility]) [facility] ([facility]) [place], [place] documented in this encounter Visit Diagnoses Diagnosis LAP-BAND surgery status Bariatric surgery status Gastroesophageal reflux disease, unspeci fied whether esophagitis present Dysphagia, unspecified type documented in this encounter Administered Medications Inactive Administered Medications - up to 3 most recent administrations Medication Order MAR Action Action Date Dose Rate Site benzocaine (HURRICAINE) 20 % oral Given 02/26/2021 2:02 PM MATERIAL HANDLER FLOORPERSON 1 Each spray 1 Each 1 Each (1 [place]), Mouth/Throat, PRN, Pain, Starting on Wed02/26/21 at 0711, Give only during endoscopy procedure visit fentaNYL (SUBLIMAZE) injection 25-100 mc g Given 02/26/2021 2:02 PM MATERIAL HANDLER FLOORPERSON 100 mcg 25-100 mcg, Intravenous, PRN, Other, Moderate Sedation, Starting on Wed02/26/21 at 0711, Until Milly 02/27/21 at 0205, Administer in 25-100 mcg increments as directed by endoscopy procedure MD up to a total of 300 mcg. (Give only during endoscopy procedure visit) midazolam (VERSED) injection 0.5-2 mg Given 02/26/2021 2:03 PM MATERIAL HANDLER FLOORPERSON 2 mg 0.5-2 mg, Intravenous, PRN, Sedation, Starting on Wed02/26/21 at 0711, Until Milly 02/27/21 at 0205, Administer in 0.5-2 mg increments as directed by endoscopy procedure MD up to a total of 8 mg. (Give only during endoscopy procedure visit) sodium chloride 0.9% injection 10-60 mL Given 02/26/2021 2:03 PM MATERIAL HANDLER FLOORPERSON 10 mL 10-60 mL, Intravenous, PRN, Line Patency, For port access and deaccess only, Starting on Wed02/26/21 at 0711, Until Milly 02/27/21 at 0205 documented in this encounter Care Teams Electrical Prospecting Supervisor Relationship Specialty Start Date End Date Nancy Coffey MBBS PCP - General 11/09/12 09/29/21 [address] [facility] [address] [place] [address] documented as of this encounter
--- OUTSIDE RECORDS SUMMARY | 2022-02-13 12:09 | XMS_ITS | Encounter Summary ---
:1950 Author Organization [employer] Address [address] [place] [address] Care Team Providers Name Role Phone Delphine Batista MD Primary Care Provider [phone] Reason for Visit Reason Comments PHONE CALL TO PATIENT Encounter Details Date Type Department Care Team Description 09/22/2021 Telephone [facility] Bariatric Surgery Sheba Cortez , PHONE CALL TO PATIENT & [facility] RN [address] [facility], [address] [place] [address] Social History Tobacco Use Types Packs/Day Years Used Date Smoking Tobacco: Never Smokeless Tobacco: Never Alcohol Use Standard Drinks/Week Comments Yes 0 (1 standard drink = 0.6 oz pure alcoho l) occasionally Sex Assigned at Date Recorded Female 01/13/2021 5:27 PM CDT documented as of this encounter Nursing Notes Sheba Cortez, RN - 09/22/2021 4:08 PM CDT Pre-op courtesy call placed today. Spoke with the patient . Patient encouraged to call with any questions or concerns regarding upcoming bariatric surgery. Call back number given. Pt. was reminded of clear liquids only the day before surgery, NPO after midnight, pre-op shower instructions given. Pt reports she did not see her AVS with 10 day countdown prior to surgery. Urology Surgeon sent AVS from surgeon consult to pt via [employer], which pt states she uses. Went over CHG cloth use prior to surgery with pt as well. Number given to pt should she have any further questions prior to surgery. documented in this encounter Plan of Treatment Not on filedocumented as of this encounter Visit Diagnoses Not on filedocumented in this encounter Care Teams Senior Product Consultant Relationship Specialty Start Date End Date Delphine Batista MD PCP - General Family Practice 09/30/211999 [place] [address] documented as of this encounter
--- OUTSIDE RECORDS SUMMARY | 2022-02-13 12:09 | XMS_ITS | Encounter Summary ---
:1950 Author Organization [facility] Address [address] [place] [address] Care Team Providers Name Role Phone WilderrosadeirdrerosaNancy [facility] Primary Care Provider Encounter Details Date Type Department Care Team Description 2021 Lab Visit [facility] Compli cation of gastric banding; Laboratory Dysphagia, unspecified type [address] [place] [address] Social History Tobacco Use Types Packs/Day Years [...] Name Priority Date/Time Associated Diagnosis Comme nts 2019 NOVEL Routine 2021 10:54 Complication of Results for this CORONAVIRUS AM CDT gastric banding procedure are in Dysphagia, the results unspecified type section. documented in this encounter Results 2019 Novel Coronavirus (COVID-19) (2021 10:54 AM CDT) [facility] Method Time Signature COVID-19 Not Not 2021 [facility] Interpretation Detected Detected 9:39 PM CENTRAL LAB CDT Source Nares, left 2021 [facility] and right 9:39 PM CENTRAL LAB CDT Specimen Anatomical Collection Method Collection Time Receive d Time (Source) Location / / Volume Laterality Swab (Source Non-blood 2021 10:54 2021 Required) Collection / AM CDT 10:58 AM CDT Unknown Narrative [facility] - 2021 9:39 PM CDT Test performed by Surveillance Investigator Mediated Amplification. TMA has been shown to be equivalent to commercial real-time PCR t ests. This test has been authorized by the FDA under Emergency Use Authorization (E UA) for use by authorized laboratories. Devon Cool MD LAB_1 Performing Organization Address City/State/ZIP Code Phon e Number [facility] [address] [phone] documented in this encounter Visit Diagnoses Diagnosis Complication of gastric banding Other complications of gastric band proc edure Dysphagia, unspecified type documented in this encounter Care Teams Groundskeeping Maintenance Relationship Specialty Start Date End Date Nancy Coffey MBBS PCP - General 11/09/12 09/29/21 1601 [facility] [address] [place] [address] documented as of this encounter
--- OUTSIDE RECORDS SUMMARY | 2022-02-13 12:10 | XMS_ITS | Encounter Summary ---
:1950 Author Organization [facility] Address [address] [place] [address] Care Team Providers Name Role Phone Nancy Coffey Primary Care Provider Reason for Visit Reason Comments Band Surg Followup Encounter Details Date Type Department Care Team Description 07/09/[address] [facility] Jose G Aly Morbid obesity (Primary Dx); Surgery & Weight E, [facility] Fitting and adjustment of gastric lap ba nd; Center [address] [facility] Bariatric surgery status [address] [facility] [address] [place] [id number] [phone] Social History Tobacco Use Types Packs/Day Years Used Date Smoking Tobacco: Never Alcohol Use Standard Drinks/Week Comments Not Asked 0 (1 standard drink = 0.6 oz pure alcoho l) Sex Assigned at Date Recorded Female 01/13/2021 5:27 PM CDT documented as of this encounter Last Filed Vital Signs Vital Sign Reading Time Taken Comments Blood Pressure 157/86 07/09/2014 9:30 AM CDT Pulse 70 07/09/2014 9:30 AM CDT Temperature - - Respiratory Rate - - Oxygen Saturation - - Inhaled Oxygen Concentration - - Weight 119.7 kg (263 lb 14.4 oz) 07/09/2014 9:30 AM CDT Height 165.1 cm (5' 5) 07/09/2014 9:30 AM CDT Body Mass Index 43.92 07/09/2014 9:30 AM CDT documented in this encounter Patient Instructions Patient InstructionsSheba Cortez RN - 07/09/2014 9:22 AM CDT Images from the original note were not included. Expect to have some swelling in your stomach after your adjustment. It will take a couple of days toreturn to a full, regular diet. Follow the guidelines below to help you have more success after your band adjustment: Drinking and Eating' Please refer to your Bariatric Surgery binder for more details. Start with clear to full liquids (for example, skim milk, cream soups, and smooth yogurt without fruit) for 24 hours. Then, go back to your regular diet as tolerated. Eat three small meals a day. Eat only good, dense, high protein foods and chew thoroughly ( for example, baked fish or deli meat). Eat slowly and stop when you are comfortable and satisfied (take 20-30 minutes to eat each meal). Do not eat between meals. Do not drink liquid with your meal, including 30 minutes before and 30 minutes after a meal. Liquids should be calorie-free except skim milk. Drink 3 cups of skim milk between meals each day. Activity Exercise at least 30 minutes daily, five days a week. Be active throughout the day. Follow-up Care Schedule a clinic appointment in one month for evaluation for an additional band adjustment. Our support group meets the and Wednesday of every month from 5:30 to 6:30 pm in the lobby of our clinic. This is a support group for those who are considering or have undergone bariatric surgery. The groupexists to encourage the well-being of the whole person - body, mind and spirit. This group is a place of safety and support, where no one is judged, and each person is warmly welcomed. Please join us! When to call the nurse clinician vomiting discomfort difficulty eating or drinking increased heartburn, especially at night Call early in the day whenever possible to be sure someone is available to help you that day! Telephone Numbers [facility] - [phone] Weekdays 8:30 to 5:00 [facility] - [phone] After hours and weekends for emergencies only. Identify yourself as a bariatric surgery patient and ask to speak to the surgeon on-call. -Check us out on Facebook and Twitter [email or web address] documented in this encounter Progress Notes Jose G Aly PA-C - 07/11/2014 9:44 AM CDT Date of Visit: 07/09/2104 Date of Original Surgery: Past Medical History Diagnosis Date ??? Obesity (ACG) 03/09/2012 ??? Laparoscopic adjustable gastric band, APS 05/14/2009 ??? Laparoscopic adjustable gastric band, APS 05/14/2009 Patient Symptoms: Hungry within 4-5 Hours and Eating large portions. Patient was on vacation and admits to making poorfood choices and is working to get back on track. She also developed a sinus infection which required antibiotics. She denies ever having symptoms of her band being too tight. She is no longer taking antibiotics and feels nearly fully recovered. - Pt. denies persistent pain with eating, frothing ,persistent sensation of food sticking, vomiting,heartburn, reflux, constipation, diarrhea, taste aversion, bloating, epigastric pain, recent airplane travel Meals per day 3 Food Volumes greater than 1 cup Diary Consumption Milk 2 servings Protein intake adequate yes Fluid intake 48-64 oz Alcohol/Tobacco/Caffeine: History Smoking status ??? Never Smoker Smokeless tobacco ??? Not on file History Alcohol Use ??? 0.6 oz/week ??? 1 Glasses of wine per week Comment: Alcoholic Drinks/day: Amount:1-2 drinks; Freq:Never; Exercise: less than 30 minutes - she is considering joining a gym Objective Visit Weight: 263 lb 14.4 oz (552861 g) General: NAD Respiratory: No distress is noted Abdomen: Soft and non-tender Wound: No incisional hernia is seen Skin: Intact Neuropsych: Patient is alert and oriented. Exhibits appropriate affect Band adjustment section Patient is currently in the: Yellow zone - Fluid needs to be added Adjustment date of last adjustment: 03/12/14 amount volume after last adjustment: 5.7 ml amount adjusted: +0.5 ml total amount in band after visit: 6.2 ml Assessment Morbid Obesity Plan Dietary recommendations: Discussed with the patient the appropriate diet after a gastric band placement with emphasis on three meals per day, protein first at every meal followed by a good vegetable and/or fruit choice. Meal duration, exercise, snacking avoidance, avoidance of high calorie liquids andsatiety goals were also reviewed. Dietary guidelines instruction sheet provided. Patient is advised to continue supplements. Activity recommendations: Increase physical activity as tolerated to goal of 30 minutes, five times per week. See radio script writer as needed See Physician Airframe And Power Plant Mechanic 1 month(s) documented in this encounter Plan of Treatment Not on filedocumented as of this encounter Visit Diagnoses Diagnosis Morbid obesity (HRC) - Primary Morbid obesity Fitting and adjustment of gastric lap ba nd Bariatric surgery status documented in this encounter Care Teams Director Of Email Marketing Relationship Specialty Start Date End Date Nancy Coffey MBBS PCP - General 11/09/12 09/29/[address] [address] documented as of this encounter
--- OUTSIDE RECORDS SUMMARY | 2022-02-13 12:10 | XMS_ITS | Encounter Summary ---
:1950 Author Organization [facility] Address [address] [place] [address] Care Team Providers Name Role Phone Nancy Coffey [facility] Primary Care Provider Reason for Referral Procedure/Equipment (Routine) - Incomplete Specialty Diagnoses / Procedures Referred By Contact Refer red To Contact Diagnoses LAP-BAND surgery status Gastroesophageal reflux disease, unspecified whether esophagitis present Dysphagia, unspecified type Jose G Aly PA-C Procedures [place] UGI W Esophagus [address] [place] [phone] Referral ID Status Reason Start Date Expiration Date Visits V isits Requested Authorized [id number] Incomplete 01/15/2021 04/16/2022 1 1 Procedure/Equipment (Routine) - New Request Specialty Diagnoses / Procedures Referred By Contact Refer red To Contact Diagnoses LAP-BAND surgery status Gastroesophageal reflux disease, unspecified whether esophagitis present Dysphagia, unspecified type Jose G Aly PA-C Procedures EGD [address] [id number] [place] [phone] Referral ID Status Reason Start Date Expiration Date Visits V isits Requested Authorized [id number] New Request 01/15/2021 04/16/2022 1 1 Reason for Visit Reason Comments CONSULT Back on track Encounter Details Date Type Department Care Team Description 01/15/2021 Office Visit [facility] Jose G Aly sophageal reflux disease, unspecified whether esophagitis present (Primary Dx); Surgery & Weight KRYSTIN Pierre Morbid obesity with BMI of 40.0-44.9, ad ult ([facility]); Center [address] [facility] Dysphagia, unspecified type; [address] [facility]. [address] LAP-BAND surgery status; [address] [place], [place] Obstructive sleep apnea synd janina; [facility], [address] Depressive disorder ([facility] [place]); [place] [id number] Hypothyroidism, unspecified type Social History Tobacco Use Types Packs/Day Years Used Date Smoking Tobacco: Never Smokeless Tobacco: Never Alcohol Use Standard Drinks/Week Comments Yes 0 (1 standard drink = 0.6 oz pure alcoho l) occasionally Sex Assigned at Date Recorded Female 01/13/2021 5:27 PM CDT documented as of this encounter Last Filed Vital Signs Vital Sign Reading Time Taken Comments Blood Pressure 142/86 01/15/2021 11:11 AM CDT Pulse 71 01/15/2021 11:11 AM CDT Temperature - - Respiratory Rate - - Oxygen Saturation - - Inhaled Oxygen Concentration - - Weight 120.1 kg (264 lb 12.8 oz) 01/15/2021 11:04 AM CDT Height 165.1 cm (5' 5) 01/15/2021 11:04 AM CDT Body Mass Index 44.07 01/15/2021 11:04 AM CDT documented in this encounter Progress Notes Jose G Aly PA-C - 01/15/2021 11:00 AM CDT Lap Band Post-Operative Follow Up Date of Visit: 01/15/2021 SUBJECTIVE: This 70 y.o. year-old female with chronic medical problems including hypothyroidism, depression, LEIGH, hyperlipidemia, asthma, RLS presents for routine postoperative followup status post Adjustable Gastric Band. Patient was last in clinic in 2018. She presents with symptoms of reflux and sensation of fo od sticking. She describes feeling full quickly when eating but then being hungry shortly later and snacking. She is taking Pepcid twice daily and Tums for reflux. She inquires about options for band removal. Horse Racing Manager discussed removing band and also brought up possibility of conversion to another weight loss surgery. Horse Racing Manager reviewed disease of obesity and limitations of lap band as weight loss tool. Briefly reviewed sleeve gastrectomy and gastric bypass with patient and her . Bariatric Weight History and Calculations Weight History Starting Weight: 261 lb Current Weight: 264 lb 12.8 oz Height (in): 65 Weight Calculations Excess Weight: 127 lb 8 oz Current Weight Loss: -3 lb 12.8 oz Goal Weight: 133 lb 8 oz Starting BMI: 43.7336003999753 Percent Exess Weight Loss: -2.00764542098743 Current BMI: 44.3971436407426 Percent Totoal Body Weight Loss: -1.37884875806113 Date of Original Surgery: 05/14/2009 ?? Type of Original Surgery: ?? APS band ?? Date of Revisional surgery: Type: None Focuses on eating protein at most meals: Yes Fluid intake averages >64 oz oz per day. Exercise: PAST MEDICAL HISTORY: Past Medical History: Diagnosis Date ??? Laparoscopic adjustable gastric band, APS 05/14/2009 ??? Laparoscopic adjustable gastric band, APS 05/14/2009 ??? Obesity (HRC) 03/09/2012 MEDICATIONS: ASTELIN 137 MCG/SPRAY NA SOLN, 2 sprays [...] mouth daily., Disp: , Rfl: levothyroxine (SYNTHROID) 137 MCG [...] Cholesterol, Disp: 90, Rfl: 3 triamcinolone (NASACORT ALLERGY 24HR) 55 MCG/ACT nasal inhaler, , Disp: , Rfl: TYLENOL PM EXTRA STRENGTH 500-25 MG OR TABS, 1 tablet daily , Disp: , Rfl: No current facility-administered medications on file as of 01/15/2021. ADR/ALLERGIES: Dust, Molds & smuts, Other, and Pollen extract SOCIAL HISTORY: Social History Socioeconomic History ??? Marital status: [...] Social Determinants of Health Financial Resource Strain: ??? Difficulty of Paying Living Expenses: Not on file Food Insecurity: ??? Worried About Running Out of Food in the Last Year: Not on file ??? Ran Out of Food in the Last Year: Not on file Transportation Needs: ??? Lack of Transportation (Medical): Not on file ??? Lack of Transportation (Non-Medical): Not on file Physical Activity: ??? Days of Exercise per Week: Not on file ??? Minutes of Exercise per Session: Not on file Intimate Partner Violence: ??? Fear of Current or Ex-Partner: Not on file ??? Emotionally Abused: Not on file ??? Physically Abused: Not on file ??? Sexually Abused: Not on file Housing Stability: ??? Unable to Pay for Housing in the Last Year: Not on file ??? Number of Places Lived in the Last Year: Not on file ??? Unstable Housing in the Last Year: Not on file Patient Employment Employer: Address: City: State: Zip: Phone: Occupation: Employee?: No OBJECTIVE: BP (!) 142/86 (BP Location: Left Forearm) Pulse 71 Ht 5' 5 (165.1 cm) Wt 264 lb 12.8 oz (935830 g) BMI 44.07 kg/m?? BMI: Estimated body mass index is 44.07 kg/m?? as calculated from the following: Height as of this encounter: 5' 5 (165.1 cm). Weight as of this encounter: 264 lb 12.8 oz (806591 g). GENERAL: Patient appears no apparent distress RESPIRATORY: Normal respiratory effort PSYCH: no overt evidence of anxiety or depression SKIN: no rashes on exposed skin NEURO: normal gait MUSCULOSKELETAL: no LE edema LABORATORY/IMAGING STUDIES: UGI (03/09/18): FINDINGS: The patient swallowed barium without difficulty. The esophagus is unremarkable in appearance. A small hiatal hernia is present appearing similar to the prior exam. No evidence of esophageal stricture. There is mild esophageal dysmotility. Visualized portions of the stomach and duodenum are unremarkable. Gastric band appears widely patent and appears in stable position compared to previous. No reflux identified during the course of the study. ?? Band adjustment section Adjustment None date of last adjustment: 03/08/18 amount volume after last adjustment: 1.5 ml ASSESSMENT: We will continue to treat the patient's obesity, obesity-associated medical conditions, and conditions exacerbated by or contributing to weight gain by aggressive management of weight: ICD-10-CM 1. Gastroesophageal reflux disease, unspecified whether esophagitis present K21.9 EGD [place] UGI W Esophagus 2. Morbid obesity with BMI of 40.0-44.9, adult ([facility]) E66.01 Z68.41 3. Dysphagia, unspecified type R13.10 EGD [place] UGI W Esophagus 4. LAP-BAND surgery status Z98.84 EGD [place] UGI W Esophagus 5. Obstructive sleep apnea syndrome G47.33 6. Depressive disorder (HRC) F32.9 7. Hypothyroidism, unspecified type ([facility]) E03.9 Plan Dietary recommendations: Discussed with the patient [...] of 30 minutes, five times per week. UGI and EGD to evaluate lap band Patient will consider conversion surgery. Additional information given to patient. Insurance benefitverification form given to patient if she wishes to check insurance options for conversion surgery Return to the clinic in 2-3 months, sooner p.r.n. problems or concerns. Patient is especially encouraged to return to the clinic if failing to lose further weight. Total time for visit was 35 minutes including [id number] time spent reviewing medical records,counseling, documentation, placing orders, and coordination of care. Jose G Aly PA-C MANAGER documented in this encounter Nursing Notes Arely Walsh RN - 01/15/2021 11:00 AM CDT Last seen on 03/08/2018 with recorded weight of 261 lbs. Weight History: Bariatric Weight History and Calculations Weight History Starting Weight: 261 lb Height (in): 65 Weight Calculations Excess Weight: 127 lb 8 oz Goal Weight: 133 lb 8 oz Starting BMI: 44.8979042234899 Measurements Do you have a scale? YES - 264.8 lb. Do you have a BP cuff? YES - in clinic: 145/98, 142/86 Eating patterns Medications: Compliance: YES Side effects: NO Would like to discuss: GERD/heartburn - still occurs multiple times per day despite taking Pepcid twice a day and Tums PRN. Hernia? Lap band removal. Has constipation and diarrhea. Does snack on cheese, ice cream, and nuts. Does not avoid liquids around meals. Patient reported that food gets stuck occasionally. Arely Walsh RN 10:55 AM 01/15/2021 documented in this encounter Plan of Treatment Not on filedocumented as of this encounter Results EGD (02/26/2021 1:02 PM EVS MANAGER) Specimen (Source) Anatomical Collection Method Collection Time Re ceived Time Location / / Volume Laterality 02/26/2021 1:02 PM EVS MANAGER Narrative [facility]) - 02/26/2021 1:02 PM EVS MANAGER Patient Name: Mindi Muse Procedure Date: 02/26/2021 [...] turations were monitored ? continuou sly. The [id number] was ? introduce d through the mouth, [...] Code(s): ?? --- Professional - -- ? 92729, Es ophagogastroduodenoscopy, ? flexible, transoral; diagnostic, ? including collection of specimen(s) ? by brushi ng or washing, when ? performed (separate procedure) ? G0500, Mo derate sedation services ? provided by the same physician or ? other [facility] health care ? professio nal performing a ? gastroint estinal endoscopic service ? that anam tion supports, requiring the ? presence of an independent trained ? observer to assist in the monitoring ? of the pa sohannt's level of ? conscious ness and physiological ? status; i nitial 15 minutes of ? intra-ser vice time; patient age 5 ? years or older (additional time may ? be report ed with [address], as ? appropria te) Diagnosis Code(s): ?? --- Professional - -- ? Z98.84, B ariatric surgery status ? 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 R13.10, D ysphagia, unspecified ? R12, Hear tburn ? Z09, Enco unter for follow-up ? examinati on after completed treatment ? for condi tions other than malignant ? neoplasm CPT copyright 2019 [employer]. All rights reserved. The codes documented in this report are preliminary and upon plastic tubing insulation supervisor review may be revised to meet current [...] and oxygen saturations were monitored continuously. The [id number] was introduced through the mouth, and advanced [...] specimens collected. Recommendation: - Discharge patient to [facility]. - Resume previous diet. - Continue present medications. - Return to Bariatric clinic. Procedure Code(s): --- Professional --- 73923, Esophagogastroduodenoscopy, flexible, transoral; diagnostic, including collection of specimen(s) by brushing or washing, when performed (separate procedure) G0500, Moderate sedation services provided by the same physician or other qualified health child care associate performing a gastrointestinal endoscopic service that sedation supports, requiring the presence of an independent trained observer to assist in the monitoring of the patient's level of consciousness and physiological status; initial 15 minutes of intra-service time; patient age 5 years or older (additional time may be reported with 19904, as appropriate) Diagnosis Code(s): --- Professional --- Z98.84, Bariatric surgery status Q39.9, Congenital malformation of esophagus, unspecified R13.10, Dysphagia, unspecified R12, Heartburn Z09, Encounter for follow-up examination after completed treatment for conditions other than malignant neoplasm CPT copyright 2019 [employer]. All rights reserved. The codes documented in this report are preliminary and upon plastic tubing insulation supervisor review may be revised to meet current compliance requirements. Devon Cool MD 02/26/2021 2:19:19 PM Number of Addenda: 0 Note Initiated On: 02/26/2021 1:02 PM Endoscopy Report Jose G Aly PA-C [facility] PROCEDURE ORDERABLES Performing Organization Address City/State/ZIP Code Phon e Number [facility] [place], [place] UGI W Esophagus (01/27/2021 10:55 AM [...] documented in this encounter Visit Diagnoses Diagnosis Gastroesophageal reflux disease, unspeci fied whether esophagitis present - Primary Morbid obesity with BMI of 40.0-44.9, ad ult (HRC) Dysphagia, unspecified type LAP-BAND surgery status Bariatric surgery status Obstructive sleep apnea syndrome Obstructive sleep apnea (adult) (pediatr ic) Depressive disorder Depressive disorder, not elsewhere class ified Hypothyroidism, unspecified type (HRC) LAP-BAND surgery status Bariatric surgery status Gastroesophageal reflux disease, unspeci fied whether esophagitis present Dysphagia, unspecified type LAP-BAND surgery status Bariatric surgery status Gastroesophageal reflux disease, unspeci fied whether esophagitis present Dysphagia, unspecified type documented in this encounter Care Teams Steel Welder Relationship Specialty Start Date End Date Nancy Coffey MBBS PCP - General 11/09/12 09/29/[address] [address] documented as of this encounter
--- OUTSIDE RECORDS SUMMARY | 2022-02-13 12:10 | XMS_ITS | Encounter Summary ---
:1950 Author Organization [employer] Address [address] [place] [address] Care Team Providers Name Role Phone Nancy Coffey Primary Care Provider Encounter Details Date Type Department Care Team Description 12/22/2013 Lab Visit [facility] Thiamine deficiency [address] [facility] [place] [address] Social History Tobacco Use Types Packs/Day Years Used Date Smoking Tobacco: Never Alcohol Use Standard Drinks/Week Comments Not Asked 0 (1 standard drink = 0.6 oz pure alcoho l) Sex Assigned at Date Recorded Female 01/13/2021 5:27 PM CDT documented as of this encounter Plan of Treatment Not on filedocumented as of this encounter Procedures Procedure Name Priority Date/Time Associated Diagnosis Comme nts VITAMIN B6 (8HR Routine 12/22/2013 11:36 AM Thiamine deficienc y Results for this FAST RECOMMENDED) CDT procedure are in the results section. documented in this encounter Results (ABNORMAL) VITAMIN B6 (12/22/2013 11:36 AM CDT) P athologist Signature Vitamin B6 190.5 (H) 20.0 - HP CONVERSION 125.0 nmol/L Comment: INTERPRETIVE INFORMATION: Vitamin B6 (Py ridoxal 5-Phosphate) Pyridoxal 5'-phosphate measured in a spe cimen collected following an 8-hour or overnight fast ac curately indicates vitamin B6 nutritional status. Non-fasti ng specimen concentration reflects recent vitamin in take. Test developed and characteristics deter mined by [employer]. See Compliance Statement B : [email or web address] Specimen Anatomical Collection Method Collection Time Receive d Time (Source) Location / / Volume Laterality 12/22/2013 11:36 12/22/2013 3:45 AM CDT PM CDT Narrative HP CONVERSION - 12/26/2013 8:13 AM CDT Performed at [facility] [address] [place] [address] Pamela Hicks PA-C LAB_1 Performing Organization Address City/State/[facility] Code Phon e Number HP CONVERSION documented in this encounter Visit Diagnoses Diagnosis Thiamine deficiency (HRC) Other and unspecified manifestations of thiamine deficiency documented in this encounter Care Teams Horticultural Farm Manager Relationship Specialty Start Date End Date Nancy Coffey MBBS PCP - General 11/09/12 09/29/21 1601 [facility] [address] [place] [address] documented as of this encounter
--- OUTSIDE RECORDS SUMMARY | 2022-02-13 12:10 | XMS_ITS | Encounter Summary ---
:1950 Author Organization [employer] Address [address] [place] [address] Care Team Providers Name Role Phone Terell Malloy MD Primary Care Provider Encounter Details Date Type Department Care Team Description 07/29/2010 PN Conversion Only CONVERSION CONVERSION Terell Malloy MD [address] [place] [place] [address] Social History Tobacco Use Types Packs/Day Years [...] on filedocumented in this encounter Care Teams Professional System Administrator Relationship Specialty Start Date End Date Terell Malloy MD PCP - General 07/01/10 11/08/[address] [place] [id number] documented as of this encounter
--- OUTSIDE RECORDS SUMMARY | 2022-02-13 12:10 | XMS_ITS | Encounter Summary ---
:1950 Author Organization [employer] Address [address] [place] [address] Care Team Providers Name Role Phone Nancy Coffey Primary Care Provider Encounter Details Date Type Department Care Team Description 11/01/2013 Lab Visit [facility] [address] [place] [address] surgery status; Outpatient Laborator y Other and unspecified postsu rgical nonabsorption; [facility] Other symptoms concerning nu trition, metabolism, [place] [address] Social History Tobacco Use Types [...] Name Priority Date/Time Associated Diagnosis Comme nts IRON BINDING Routine 11/01/2013 2:45 PM Other and unspecified Results for this CAPACITY (INCL CDT postsurgical procedure are in IRON) nonabsorption the results section. ZINC, SERUM Routine 11/01/2013 2:45 PM Bariatric surgery Resu lts for this CDT status procedure are i n the results section. VITAMIN B6 (8HR Routine 11/01/2013 2:45 PM Bariatric surgery R esults for this FAST RECOMMENDED) CDT status procedure are in the results section. VITAMIN B1, BLOOD Routine 11/01/2013 2:45 PM Bariatric surgery Results for this CDT status procedure are i n the results section. VITAMIN A Routine 11/01/2013 2:45 PM Bariatric surgery Resu lts for this CDT status procedure are i n the results section. COPPER, SERUM Routine 11/01/2013 2:45 PM Bariatric surgery Res ults for this CDT status procedure are i n the results section. GLUCOSE Routine 11/01/2013 2:45 PM Other symptoms Results for this CDT concerning nutrition, proced ure are in metabolism, and the results development section. VITAMIN D Routine 11/01/2013 2:45 PM Bariatric surgery Resu lts for this 25-HYDROXY, TOTAL CDT status procedure are in the results section. INTACT PTH Routine 11/01/2013 2:45 PM Bariatric surgery Resu lts for this CDT status procedure are i n the results section. CREATININE / GFR Routine 11/01/2013 2:45 PM Bariatric surgery Results for this CDT status procedure are i n the results section. PREALBUMIN Routine 11/01/2013 2:45 PM Bariatric surgery Resu lts for this CDT status procedure are i n the results section. COMPLETE BLOOD Routine 11/01/2013 2:45 PM Other and unspecifie d Results for this COUNT-NO DIFF CDT postsurgical procedure are in nonabsorption the results section. HGB A1C Routine 11/01/2013 2:45 PM Other and unspecified Results for this CDT postsurgical procedure are i n nonabsorption the results section. FOLATE ONLY (4HR Routine 11/01/2013 2:45 PM Bariatric surgery Results for this FAST RECOMMENDED) CDT status procedure are in the results section. VITAMIN B12 ONLY Routine 11/01/2013 2:45 PM Bariatric surgery Results for this CDT status procedure are i n the results section. PROTEIN, TOTAL Routine 11/01/2013 2:45 PM Bariatric surgery Re sults for this (SERUM) CDT status procedure are i n the results section. CALCIUM Routine 11/01/2013 2:45 PM Bariatric surgery Resu lts for this CDT status procedure are i n the results section. ALBUMIN Routine 11/01/2013 2:45 PM Bariatric surgery Resu lts for this CDT status procedure are i n the results section. documented in this encounter Results ZINC, SERUM (11/01/2013 2:45 PM CDT) P athologist Signature Zinc, Serum 85 60 - 120 HP CONVERSION ug/dL Comment: INTERPRETIVE INFORMATION: Zinc, Serum or Plasma Circulating zinc concentrations are depe ndent on albumin status and are depressed with malnutriti on. Zinc may also be lowered with infection, inflammation, stress, oral contraceptives, and . Zinc may be elevated with zinc supplementation or fasting. Elevate d zinc concentrations may interfere with copper absorption. Specimen Anatomical Collection Method Collection Time Receive d Time (Source) Location / / Volume Laterality 11/01/2013 2:45 PM 4 3:19 CDT PM CDT Narrative HP CONVERSION - 11/03/2013 1:58 AM CDT Performed at [facility] [address] [place] [address] Pamela Hicks PA-C LAB_1 Performing Organization Address City/State/ZIP Code Phon e Number HP CONVERSION Vitamin D 25-Hydroxy, Total (11/01/2013 2:45 PM CDT) athologist Signature Vitamin D 25 Oh 48 20 - 80 HP CONVERSION ng/mL Comment: Deficiency = <20 Adequate ??= 20-29 Preferred = 30-50 Uncertain safety = 51-80 High = >80 Specimen Anatomical Collection Method Collection Time Receive d Time (Source) Location / / Volume Laterality 11/01/2013 2:45 PM 4 3:19 CDT PM CDT Pamela Hicks PA-C LAB_1 Performing Organization Address City/State/[facility] Code Phon e Number HP CONVERSION (ABNORMAL) VITAMIN B6 (11/01/2013 2:45 PM CDT) athologist Signature Vitamin B6 18.6 (L) 20.0 - HP CONVERSION 125.0 nmol/L Comment: INTERPRETIVE INFORMATION: Vitamin B6 (Py ridoxal 5-Phosphate) Pyridoxal 5'-phosphate measured in a spe cimen collected following an 8-hour or overnight fast ac curately indicates vitamin B6 nutritional status. Non-fasti ng specimen concentration reflects recent vitamin in take. Test developed and characteristics deter mined by [employer]. See Compliance Statement B : [email or web address] Specimen Anatomical Collection Method Collection Time Receive d Time (Source) Location / / Volume Laterality 11/01/2013 2:45 PM 4 3:19 CDT PM CDT Narrative HP CONVERSION - 11/05/2013 2:14 AM CDT Performed at [facility] [address] [facility] [place] [address] Pamela Hicks PA-C LAB_1 Performing Organization Address [facility] Phon e Number HP CONVERSION VITAMIN B1 (11/01/2013 2:45 PM CDT) athologist Signature Vitamin B1 106 70 - 180 HP CONVERSION nmol/L Comment: INTERPRETIVE INFORMATION: Vitamin B1, Wh ole Blood This assay measures the concentration of thiamine diphosphate (TDP), the primary active fo rm of vitamin B1. Approximately 90 percent of vitamin B1 p resent in whole blood is TDP. Thiamine and thiamine mono phosphate, which comprise the remaining 10 percent, are n ot measured. Test developed and characteristics deter mined by [employer]. See Compliance Statement B : [employer] Specimen Anatomical Collection Method Collection Time Receive d Time (Source) Location / / Volume Laterality 11/01/2013 2:45 PM 4 3:19 CDT PM CDT Narrative HP CONVERSION - 11/04/2013 6:29 AM CDT Performed at [facility] [address] [facility] [place] [address] Pamelamargie Hicks PA-C LAB_1 Performing Organization Address [facility] Phon e Number HP CONVERSION VITAMIN A (11/01/2013 2:45 PM CDT) athologist Signature Retinol 0.69 0.30 - HP CONVERSION (Vitamin A) 1.20 mg/L Retinyl <0.02 0.00 - HP CONVERSION Palminate 0.10 mg/L Vitamin A Normal HP CONVERSION Interp Comment: Test developed and characteristics deter mined by [employer]. See Compliance Statement B : [email or web address] )/[employer] Specimen Anatomical Collection Method Collection Time Receive d Time (Source) Location / / Volume Laterality 11/01/2013 2:45 PM 4 3:20 CDT PM CDT Narrative HP CONVERSION - 11/03/2013 9:19 PM CDT Performed at [facility] [address] [facility] [place] [address] Pamela Hicks PA-C LAB_1 Performing Organization Address [facility]/ZIP Code Phon e Number HP CONVERSION Protein, Total (Serum) (11/01/2013 2:45 PM CDT) athologist Signature Protein Total, 7.2 5.7 - 8.3 HP CONVERSION Serum g/dL Specimen Anatomical Collection Method Collection Time Receive d Time (Source) Location / / Volume Laterality 11/01/2013 2:45 PM 4 3:19 CDT PM CDT Pamela Sterlingpati MARTINEZ-C LAB_1 Performing Organization Address City/[facility] Phon e Number HP CONVERSION Intact PTH (11/01/2013 2:45 PM CDT) athologist Signature PTH 91 10 - 100 HP CONVERSION pg/mL Specimen Anatomical Collection Method Collection Time Receive d Time (Source) Location / / Volume Laterality 11/01/2013 2:45 PM 4 3:19 CDT PM CDT Pamela Valderrama Fabiola MARTINEZ-C LAB_1 Performing Organization Address [facility] Phon e Number HP CONVERSION IRON BINDING CAPACITY (INCL IRON) (11/01/2013 2:45 PM CDT) athologist Signature Iron, Serum 92 37 - 170 HP CONVERSION ug/dL Iron Binding 320 250 - 450 HP CONVERSION Capacity ug/dL Iron Saturation 29 20 - 55 % HP CONVERSION Specimen Anatomical Collection Method Collection Time Receive d Time (Source) Location / / Volume Laterality 11/01/2013 2:45 PM 4 3:19 CDT PM CDT Pamela Sterlingpati PA-C LAB_1 Performing Organization Address City/[facility] Code Phon e Number HP CONVERSION Hgb A1c (11/01/2013 2:45 PM CDT) athologist Signature HGB A1C 5.6 4.0 - 5.6 % HP CONVERSION Specimen Anatomical Collection Method Collection Time Receive d Time (Source) Location / / Volume Laterality 11/01/2013 2:45 PM 4 3:19 CDT PM CDT Pamela Valderrama Fabiola MARTINEZ-C LAB_1 Performing Organization Address City/[facility] Code Phon e Number HP CONVERSION GLUCOSE (11/01/2013 2:45 PM CDT) athologist Signature Lab Glucose 86 60 - 100 HP CONVERSION mg/dL Specimen Anatomical Collection Method Collection Time Receive d Time (Source) Location / / Volume Laterality 11/01/2013 2:45 PM 4 3:19 CDT PM CDT Pamela Hicks PA-C LAB_1 Performing Organization Address [facility] Code Phon e Number HP CONVERSION Folate Only (4Hr Fast Recommended) (11/01/2013 2:45 PM CDT) athologist Signature Serum Folate 22.8 >5.9 ng/mL HP CONVERSION Specimen Anatomical Collection Method Collection Time Receive d Time (Source) Location / / Volume Laterality 11/01/2013 2:45 PM 4 3:19 CDT PM CDT Pamela Hicks PA-C LAB_1 Performing Organization Address [facility] Phon e Number HP CONVERSION B12 Only (11/01/2013 2:45 PM CDT) athologist Signature Vitamin B12 462 211 - 911 HP CONVERSION pg/dL Specimen Anatomical Collection Method Collection Time Receive d Time (Source) Location / / Volume Laterality 11/01/2013 2:45 PM 4 3:19 CDT PM CDT Pamela Hicks PA-C LAB_1 Performing Organization Address [facility] Phon e Number HP CONVERSION Creatinine / GFR (11/01/2013 2:45 PM CDT) athologist Signature Creatinine 0.9 0.4 - 1.3 HP CONVERSION Serum mg/dL Est GFR >60 >60 HP CONVERSION Am Est GFR Non-Afr >60 >60 HP CONVERSION Am Comment: Normal>60, moderate decrease 30 - 59, se iliana decrease 15 - 29, renal failure <15 mL/min/1.73 m2 NOTE: ??Choose the eGFR result above ren ropriate for the race of the patient. Specimen Anatomical Collection Method Collection Time Receive d Time (Source) Location / / Volume Laterality 11/01/2013 2:45 PM 4 3:19 CDT PM CDT Pamela Hicks PA-C LAB_1 Performing Organization Address [facility]/ZIP Code Phon e Number HP CONVERSION COPPER, SERUM (11/01/2013 2:45 PM CDT) athologist Signature Copper, Serum 129 80 - 155 HP CONVERSION ug/dL Comment: Serum copper may be elevated with infect ion, inflammation, stress, and copper supplementation. In f emales, elevated copper may also be caused by oral contra ceptives and (concentrations may be elevate d up to 3 times normal during the third trimester). Seru m copper may be reduced by use of corticosteroids and zi nc and by malnutrition or malabsorption. REFERENCE INTERVAL: Copper, Serum or Bobo sma Access complete set of age- and/or gende r-specific reference intervals for this test in the [facility] Test Directory ([employer]). Specimen Anatomical Collection Method Collection Time Receive d Time (Source) Location / / Volume Laterality 11/01/2013 2:45 PM 4 3:19 CDT PM CDT Narrative HP CONVERSION - 11/03/2013 1:58 AM CDT Performed at [facility] [address] [place] [address] Pamela MARTINEZC LAB_1 Performing Organization Address [facility] Phon e Number HP CONVERSION Complete Blood Count-No Diff (11/01/2013 2:45 PM CDT) athologist Signature White Blood Cell 6.3 3.8 - 11.0 HP CONVERSIO N Count Red Blood Cell 4.60 3.70 - HP CONVERSION Count 5.20 Hemoglobin 14.2 11.8 - HP CONVERSION 15.5 g/dL Hematocrit 43.8 35.0 - HP CONVERSION 46.0 % Mean Corpuscular 95.2 80.0 - HP CONVERSION Volume 100.0 fL RDW 13.1 11.0 - HP CONVERSION 15.0 % Platelet Count 243 140 - 450 HP CONVERSION Specimen Anatomical Collection Method Collection Time Receive d Time (Source) Location / / Volume Laterality 11/01/2013 2:45 PM 4 3:19 CDT PM CDT Pamela Hicks PA-C LAB_1 Performing Organization Address City/[facility] Phon e Number HP CONVERSION Calcium (11/01/2013 2:45 PM CDT) P athologist Signature Calcium 9.6 8.5 - 10.5 HP CONVERSION mg/dL Specimen Anatomical Collection Method Collection Time Receive d Time (Source) Location / / Volume Laterality 11/01/2013 2:45 PM 4 3:19 CDT PM CDT Pamela Sterlingpati MARTINEZ-C LAB_1 Performing Organization Address [facility] Phon e Number HP CONVERSION Prealbumin (11/01/2013 2:45 PM CDT) P athologist Signature Prealbumin 26.8 20.0 - 40.0 HP CONVERSION mg/dL Specimen Anatomical Collection Method Collection Time Receive d Time (Source) Location / / Volume Laterality 11/01/2013 2:45 PM 4 3:19 CDT PM CDT Pamela Sterlingpati MARTINEZ-C LAB_1 Performing Organization Address [facility] Phon e Number HP CONVERSION Albumin (11/01/2013 2:45 PM CDT) athologist Signature Albumin 4.5 3.4 - 5.0 HP CONVERSION g/dL Specimen Anatomical Collection Method Collection Time Receive d Time (Source) Location / / Volume Laterality 11/01/2013 2:45 PM 4 3:19 CDT PM CDT Pamela Valderrama Fabiola MARTINEZ-C LAB_1 Performing Organization Address [facility] Phon e Number HP CONVERSION documented in this encounter Visit Diagnoses Diagnosis Bariatric surgery status Other and unspecified postsurgical nonab sorption Other symptoms concerning nutrition, met abolism, and development documented in this encounter Care Teams Occupational Therapy Program Director Relationship Specialty Start Date End Date Nancy Coffey MBBS PCP - General 11/09/12 09/29/21 16[address] [facility] [address] [place] [address] documented as of this encounter
--- OUTSIDE RECORDS SUMMARY | 2022-02-13 12:10 | XMS_ITS | Encounter Summary ---
:1950 Author Organization [email or web address] Address [address] [place] [address] Care Team Providers Name Role Phone Nancy Coffey Primary Care Provider Encounter Details Date Type Department Care Team Description 03/04/2018 Notes/Orders [facility] & Sheba Cortez RN [facility] [address] [facility] [address] [place], [place] [id number] Social History Tobacco Use Types Packs/Day Years Used Date Smoking Tobacco: Never Alcohol Use Standard Drinks/Week Comments Yes 0 (1 standard drink = 0.6 oz pure Alcoho lic Drinks/day: 1 drink 2 alcohol) times a month Sex Assigned at Date Recorded Female 01/13/2021 5:27 PM CDT documented as of this encounter Progress Notes Sheba Cortez RN - 03/04/2018 3:10 PM CST Pt is S/P lab band surgery 05/14/2009. Pt called today to report that she had a bout of vomiting after eating regular food yesterday, and this has been happening more frequently. Pt is having coughing and night time reflux as well. Pt calling to see if she could get in to clinic before March. Pt tentatively scheduled for March 08, with Jose G Aly PA-C. Time and date will be confirmed with provider upon his return to clinic on Wednesday. Pt will be notifed Wednesday if time/date of her appt changes. Pt to stay on clear to full liquids until clinic visit next week, and may take OTC Zantac as needed for break through heartburn. Pt in agreement with this plan and will call should her sx worsen. documented in this encounter Plan of Treatment Not on filedocumented as of this encounter Visit Diagnoses Not on filedocumented in this encounter Care Teams Tax Appraiser Relationship Specialty Start Date End Date Nancy Coffey MBBS PCP - General 11/09/12 09/29/21 1601 [facility] [address] [place] [address] documented as of this encounter
--- OUTSIDE RECORDS SUMMARY | 2022-02-13 12:10 | XMS_ITS | Encounter Summary ---
:1950 Author Organization [email or web address] Address [address] [place] [address] Care Team Providers Name Role Phone Nancy Cfofey Primary Care Provider Encounter Details Date Type Department Care Team Description 10/31/2013 Notes/Orders [facility] [address] [facility] surgery status (Primary Dx); General Surgery Other and unspecified postsu rgical nonabsorption; [address] [facility] Other symptoms concerning nutrition, metabolism, and development [address] [place] [address] Social History Tobacco Use Types Packs/Day Years Used Date Smoking Tobacco: Never Alcohol Use Standard Drinks/Week Comments Not Asked 0 (1 standard drink = 0.6 oz pure alcoho l) Sex Assigned at Date Recorded Female 01/13/2021 5:27 PM CDT documented as of this encounter Plan of Treatment Not on filedocumented as of this encounter Visit Diagnoses Diagnosis Bariatric surgery status - Primary Other and unspecified postsurgical nonab sorption Other symptoms concerning nutrition, met abolism, and development documented in this encounter Care Teams Street Sweeper Relationship Specialty Start Date End Date Nancy Coffey MBBS PCP - General 11/09/12 09/29/21 1601 [facility] [address] [place], [place] [address] documented as of this encounter
--- OUTSIDE RECORDS SUMMARY | 2022-02-13 12:10 | XMS_ITS | Encounter Summary ---
:1950 Author Organization [email or web address] Address [address] [place] [address] Care Team Providers Name Role Phone Terell Malloy MD Primary Care Provider Reason for Visit Reason Comments Band Surg Followup Encounter Details Date Type Department Care Team Description 11/10/2011 Office Visit [facility] Pamela Hicks V omiting alone (Primary Dx); & Weight Center PA-C Obesity; [address] [facility]. [address] History of laparoscopic adjustable gastr ic banding; [address] Fitting [place] [address] [phone] Social History Tobacco Use Types Packs/Day Years Used Date Smoking Tobacco: Never Alcohol Use Standard Drinks/Week Comments Not Asked 0 (1 standard drink = 0.6 oz pure alcoho l) Sex Assigned at Date Recorded Female 01/13/2021 5:27 PM CDT documented as of this encounter Last Filed Vital Signs Vital Sign Reading Time Taken Comments Blood Pressure 124/70 11/10/2011 8:31 AM CDT Pulse - - Temperature - - Respiratory Rate - - Oxygen Saturation - - Inhaled Oxygen Concentration - - Weight 102 kg (224 lb 14.4 oz) 11/10/2011 8:31 AM CDT Height 165.1 cm (5' 5) 11/10/2011 8:31 AM CDT Body Mass Index 37.43 11/10/2011 8:31 AM CDT documented in this encounter Patient Instructions Patient InstructionsAnnalise Snider - 11/10/2011 8:25 AM CDT Expect to have some swelling in your [...] for evaluation for an additional band adjustment. When to call the nurse clinician vomiting discomfort difficulty eating or drinking increased heartburn, especially at night Call early in the day whenever possible to be sure someone is available to help you that day! Telephone Numbers [facility] Center - [phone] Weekdays 8:30 to 5:00 [facility] - [phone] After hours and weekends for emergencies only. Identify yourself as a bariatric surgery patient and ask to speak to the surgeon on-call. Thank you for enrolling in [employer]. Please follow the instructions below to securely access your online medical record. [employer] allows you to send messages to your doctor, view your test results, renewyour prescriptions, schedule appointments, and more. How Do I Sign Up? 1. In your Internet browser, go to: [email or web address] 2. Click on the Sign Up Now link in the Sign In box. You will see the New Member Sign Up page. 3. Enter your [employer] Access Code exactly as it appears below. You will not need to use this code after you???ve completed the sign-up process. If you do not sign up before the expiration date, you must request a new code. [employer] Access Code: [email or web address] Expires: 12/10/11 08:25 AM 4. Enter your Social Security Number ([id number]) and Date of (mm/dd/yyyy) as indicated and click Submit. You will be taken to the next sign- up page. 5. Create a [employer] [employer] ID. This will be your [employer] login ID and cannot be changed, so think of one that is secure and easy to remember. 6. Create a [employer] password. You can change your password at any time. 7. Enter your Password Reset Question and Answer. This can be used at a later time if you forget your password. 8. Enter your e-mail address. You will receive e-mail notification when new information is availablein [employer]. 9. Click Sign Up. You can now view your medical record. Additional Information If you have questions, you can call [phone] to talk to our [employer] staff. Remember, [employer] is NOT to be used for urgent needs. For medical emergencies, dial 911. documented in this encounter Progress Notes Pamela Hicks - 11/10/2011 9:21 AM CDT Date of Visit: 11/10/2011 Date of Original Surgery: 05/14/2009 Type of Original Surgery: APS band Date of Revisional surgery: Type: None No past medical history on file. Patient Symptoms: persistent sensation of food sticking, vomiting, heartburn, reflux and sensation of food sticking ifeats too fast/doesn???t chew well enough - Pt. denies persistent pain with eating, frothing , constipation, diarrhea, taste aversion, bloating, epigastric pain, recent airplane travel Meals per day 3 Food Volumes 1/2 cup, 3/4 cup Diary Consumption Milk 1 servings Protein intake adequate yes Fluid intake 48-64 oz Alcohol/Tobacco/Caffeine: History Smoking status ??? Never Smoker Smokeless tobacco ??? Not on file History Alcohol Use: Not on file Alcoholic Drinks/day: Amount:1-2 drinks; Freq:Never; Exercise: aerobic, less than 30 minutes and 1-3 times weekly, patient injured her knee last winter and is limited due to pain Objective Visit Weight: 224 lb 14.4 oz (920350 g) Objective: General: NAD Respiratory: No distress is noted Abdomen: Soft and non-tender Wound: No incisional hernia is seen Skin: Intact Neuropsych: Patient is alert and oriented. Exhibits appropriate affect Band adjustment section Patient is currently in the: Red Zone - fluid needs to be removed Adjustment date of last adjustment: 05/09 amount volume after last adjustment: 6.7ml amount adjusted: -.5 total amount in band after visit: 6.2ml Assessment Obesity and Symptoms secondary to band being too tight Vomiting Plan Dietary recommendations: Discussed with the patient [...] 30 minutes, five times per week. See pizza driver as needed See Physician Rn Iv Therapy 2 month(s) Due to the gastric band being too tight and the resulting swelling the patient is to follow a clear to full liquid diet for a minimum of 24 hours. If you are unable to tolerate a general diet after 3 days then contact a bariatric RN. She is to follow-up after she returns from [facility]. documented in this encounter Plan of Treatment Not on filedocumented as of this encounter Visit Diagnoses Diagnosis Vomiting alone - Primary Obesity (HRC) Obesity, unspecified History of laparoscopic adjustable gastr ic banding Bariatric surgery status Fitting and adjustment of gastric lap ba nd documented in this encounter Care Teams Blanket Washer Relationship Specialty Start Date End Date Terell Malloy MD PCP - General 07/01/10 11/08/12 [address] [facility] [place] HERNANDEZ [address] documented as of this encounter
--- OUTSIDE RECORDS SUMMARY | 2022-02-13 12:10 | XMS_ITS | Encounter Summary ---
:1950 Author Organization [employer] Address [address] [address] Care Team Providers Name Role Phone Nancy Coffey MBBS Primary Care Provider Reason for Referral Procedure/Equipment (Routine) - Incomplete Specialty Diagnoses / Procedures Referred By Contact Refer red To Contact Diagnoses Dysphagia, unspecified type LAP-BAND surgery status Jose G Aly PA-C Procedures [place] UGI W Esophagus [address] [facility] [address] [place], [place] [address] Referral ID Status Reason Start Date Expiration Date Visits V isits Requested Authorized [id number] Incomplete 03/08/2018 06/07/2019 1 1 MANAGER Reason for Visit Reason Comments Band Overfilled Encounter Details Date Type Department Care Team Description 03/08/2018 Office Visit [facility] Jose G Aly Dysphag ia, unspecified type (Primary Dx); Surgery & Weight KRYSTIN Pierre Epigastric pain; Center [address] [facility] Gastroesophageal reflux dise ase, esophagitis presence not specified; [address] [facility]. [address] Morbid obesity with BMI of 40.0-44.9, ad ult (HRC); [address] [place], [place] Fitting and adjustment of ga stric lap band; [facility] [address] [place] [id number] [phone] Social History Tobacco Use Types Packs/Day Years [...] Sign Reading Time Taken Comments Blood Pressure 142/89 03/08/2018 8:25 AM BI MANAGER Pulse 66 03/08/2018 8:25 AM BI MANAGER Temperature - - Respiratory Rate - - Oxygen Saturation - - Inhaled Oxygen Concentration - - Weight 118.4 kg (261 lb) 03/08/2018 8:25 AM BI MANAGER Height 165.1 cm (5' 5) 03/08/2018 8:25 AM BI MANAGER Body Mass Index 43.43 03/08/2018 8:25 AM BI MANAGER documented in this encounter Progress Notes Jose G Aly PA-C - 03/08/2018 8:30 AM CST Date of Visit: 03/08/2018 Date of Original Surgery: 05/14/2009 Type of Original Surgery: APS band Date of Revisional surgery: Type: None Past Medical History: Diagnosis Date ??? Laparoscopic adjustable gastric band, APS 05/14/2009 ??? Laparoscopic adjustable gastric band, APS 05/14/2009 ??? Obesity (HRC) 03/09/2012 Patient Symptoms: Patient reports epigastric pain and sensation of food sticking. She states that her previous symptoms from two years ago never completely resolved, but they were initially improved and manageable. Shewas also nervous about having surgery to remove her band and did not want weight loss medications. Patient's symptoms have progressed, however, and she now sleeps with her head elevated to prevent reflux. She is also taking omeprazole 20 mg daily. Patient had left knee replacement 3 months ago. She has loosely been following a ketogenic diet and has lost 30 lbs since September. Meals per day 3 Food Volumes 1/2 cup, 3/4 cup, 1 cup Protein intake adequate yes Fluid intake 48-64 oz Alcohol/Tobacco/Caffeine: Social History Tobacco Use Smoking Status Never Smoker Smokeless Tobacco Never Used Social History Substance and Sexual Activity Alcohol Use Yes ??? Alcohol/week: 0.0 oz Comment: Alcoholic Drinks/day: 1 drink 2 times a month Exercise: aerobic, 30 minutes or more and 3-5 times weekly Objective Visit Weight: 261 lb (666100 g) General: NAD Respiratory: No distress is noted Abdomen: Soft and non-tender Wound: No incisional hernia is seen Skin: Intact Neuropsych: Patient is alert and oriented. Exhibits appropriate affect Band adjustment section Patient is currently in the: Red Zone - fluid needs to be removed Adjustment date of last adjustment: 10/15/15 amount volume after last adjustment: 4 ml amount adjusted: -2.5 ml total amount in band after visit: 1.5 ml Assessment Morbid Obesity and Symptoms secondary to band being too tight GERD, epigastric pain, reflux Plan Dietary recommendations: Discussed with the patient [...] 30 minutes, five times per week. UGI ordered to rule out esophageal dysmotility, esophageal dilatation. Patient's band most likely needs to be removed See Physician Foreman/Project Manager in 1 month after UGI. If band to be removed will schedule with bariatric surgeon MANAGER documented in this encounter Plan of Treatment Not on filedocumented as of this encounter Results FL UGI W Esophagus (03/09/2018 9:45 AM BI MANAGER) Anatomical Region Laterality Modality Chest, Abdomen, Neck Radio Fluoroscopy Specimen (Source) Anatomical Collection Method Collection Time Re ceived Time Location / / Volume Laterality 03/09/2018 9:24 AM BI MANAGER Narrative 03/09/2018 9:56 AM BI MANAGER COMPARISON: ??10/18/2015 FINDINGS: ??The patient swallowed barium without difficulty. ??The esophagus is unremarkable in appearance. A small hiatal hernia is present appearing similar to the prior exam. No evidence of esophagea l stricture. There is mild esophageal dy smotility. Visualized portions of the stomach and duodenum are unremarkable. Gastric band appears widely patent and appears in stable position compared to previou s. No reflux identified during the cours e of the study. Procedure Note Junior Dhaliwal MD - 03/09/2018For matting of this note might be different from the original. COMPARISON: 10/18/2015 FINDINGS: The patient swallowed barium w ithout difficulty. The esophagus is unremarkable in appearance. A small hiatal hernia is present appearing similar to the prior exam. No evidence of esophageal stricture. There is mild esophageal dysmotility. Visualized portions of the stomach and duodenum are unremarkable. Gastric band appears widely patent and appears in stable position compared to previous. No reflux identified during the course of the study. Jose G JOHNSON documented in this encounter Visit Diagnoses Diagnosis Dysphagia, unspecified type - Primary Epigastric pain Abdominal pain, epigastric Gastroesophageal reflux disease, esophag itis presence not specified Morbid obesity with BMI of 40.0-44.9, ad ult (HRC) Fitting and adjustment of gastric lap ba nd LAP-BAND surgery status Bariatric surgery status Dysphagia, unspecified type LAP-BAND surgery status Bariatric surgery status documented in this encounter Care Teams Safety Compliance Specialist Relationship Specialty Start Date End Date Nancy Coffey MBBS PCP - General 11/09/12 09/29/[address] [address] documented as of this encounter
--- OUTSIDE RECORDS SUMMARY | 2022-02-13 12:10 | XMS_ITS | Encounter Summary ---
:1950 Author Organization [employer] [facility] Address [address] [place] [address] Care Team Providers Name Role Phone Nancy Coffey MBBS Primary Care Provider Reason for Visit Procedure/Equipment (Routine) - Incomplete Specialty Diagnoses / Procedures Referred By Contact Refer red To Contact Diagnoses Dysphagia, unspecified type LAP-BAND surgery status Jose G Aly PA-C Procedures [place] UGI W Esophagus [address] [facility] [address] [place], [place] [address] Referral ID Status Reason Start Date Expiration Date Visits V isits Requested Authorized [id number] Incomplete 03/08/2018 06/07/2019 1 1 Encounter Details Date Type Department Care Team Description 03/09/2018 Ancillary [place] Jose G Aly Dysphagia , unspecified type; Procedure Radiology E PA-C LAP-BAND surgery status [address] [place] [address] [facility] [address] [place] [id number] Social History Tobacco Use Types Packs/Day Years [...] Comme nts [place] UGI W ESOPHAGUS Routine 03/09/2018 9:45 AM Dysphagia, Res ults for this DRIVER RETRAINING INSTRUCTOR unspecified type procedure are in LAP-BAND surgery the results status section. documented in this encounter Results [place] UGI W Esophagus (03/09/2018 9:45 AM DRIVER RETRAINING INSTRUCTOR) Anatomical Region Laterality Modality Chest, Abdomen, Neck Radio Fluoroscopy Specimen (Source) Anatomical Collection Method Collection Time Re ceived Time Location / / Volume Laterality 03/09/2018 9:24 AM DRIVER RETRAINING INSTRUCTOR Narrative 03/09/2018 9:56 AM DRIVER RETRAINING INSTRUCTOR COMPARISON: ??10/18/2015 FINDINGS: ??The patient swallowed barium [...] the course of the study. Jose G MUELLER [place] documented in this encounter Visit Diagnoses Diagnosis Dysphagia, unspecified type LAP-BAND surgery status Bariatric surgery status documented in this encounter Administered Medications Inactive Administered Medications - up to 3 most recent administrations Medication Order MAR Action Action Date Dose Rate Site barium sulfate (aka E-Z-HD) 98 % Given 03/09/2018 10:15 AM DRIVER RETRAINING INSTRUCTOR 1 35 mL oral solution 135 mL 135 mL, Oral, ONCE, On Wed03/09/18 at 1015, For 1 dose, EXP. 12/16 barium sulfate (LIQUID E-Z-PAQUE) 60 % oral Given 02/26 10:15 AM DRIVER RETRAINING INSTRUCTOR 355 mL solution 355 mL 355 mL, Oral, ONCE, On Wed03/09/18 at 1015, For 1 dose, EXP. 12/15 documented in this encounter Care Teams Blacktop Spreader Relationship Specialty Start Date End Date Nancy Coffey MBBS PCP - General 11/09/12 09/29/21 16[address] [facility] [address] [place] [address] documented as of this encounter
--- OUTSIDE RECORDS SUMMARY | 2022-02-13 12:10 | XMS_ITS | Encounter Summary ---
:1950 Author Organization [employer] Address [address] [place] [address] Care Team Providers Name Role Phone Nancy Coffey Primary Care Provider Encounter Details Date Type Department Care Team Description 02/16/2011 Orders Only HP Claims MD Lawrence Security Contact Bill [address] [place] [address] Mailstop [id number] [phone] (Wo rk) Social History Tobacco Use Types [...] on filedocumented in this encounter Care Teams Architectural Administrative Assistant Relationship Specialty Start Date End Date Nancy Coffey MBBS PCP - General 11/09/12 09/29/21 [address] [place] [address] documented as of this encounter
--- OUTSIDE RECORDS SUMMARY | 2022-02-13 12:10 | XMS_ITS | Encounter Summary ---
:1950 Author Organization [employer] Address [address] [place] [address] Care Team Providers Name Role Phone Terell Malloy MD Primary Care Provider Reason for Visit Reason Comments Band Surg Followup Encounter Details Date Type Department Care Team Description 03/09/2012 Office Visit [facility] Pamela Hicks O besity (Primary Dx); & Weight Center PA-C Bariatric surgery status; [address] [facility] [address] Other and unspecified postsurgical nonab sorption; [address] Other symptoms concerning nutrition, met abolism, and development; [place], [place] Fitt ing and adjustment of gastric lap band [address] [phone] Social History Tobacco Use Types Packs/Day Years Used Date Smoking Tobacco: Never Alcohol Use Standard Drinks/Week Comments Not Asked 0 (1 standard drink = 0.6 oz pure alcoho l) Sex Assigned at Date Recorded Female 01/13/2021 5:27 PM CDT documented as of this encounter Last Filed Vital Signs Vital Sign Reading Time Taken Comments Blood Pressure 126/74 03/09/2012 9:51 AM IRRIGATION SYSTEM INSTALLER Pulse - - Temperature - - Respiratory Rate - - Oxygen Saturation - - Inhaled Oxygen Concentration - - Weight 104.6 kg (230 lb 9.6 oz) 03/09/2012 9:51 AM IRRIGATION SYSTEM INSTALLER Height 165.1 cm (5' 5) 03/09/2012 9:51 AM IRRIGATION SYSTEM INSTALLER Body Mass Index 38.37 03/09/2012 9:51 AM IRRIGATION SYSTEM INSTALLER documented in this encounter Patient Instructions Patient InstructionsSheba Cortez RN - 03/09/2012 9:40 AM CST Expect to have some swelling in your [...] day! Telephone Numbers Bariatric Surgery Center - [phone] Weekdays 8:30 to 5:00 [facility] - [phone] After hours and weekends for emergencies only. Identify yourself as a bariatric surgery patient and ask to speak to the surgeon on-call. Bariatric Lab Instructions Bariatric baseline assessment labs are drawn on the day of your initial intake appointment with the nurse, bariatrician and psychologist. Bariatric Surgery post operative labs are drawn routinely at 6 months, 1 year, 18 months, 24 months,then annually thereafter. It is important from a nutrition status that these lab values be monitored because of the risk of malnutrition following bariatric surgery. Instructions for lab draws include the followin. No vitamins or supplements for 24 hours prior to the test 2. No alcohol for 24 hours prior to the test 3. You must fast (no food or fluids other than water) for 12-14 hours prior to the test. It would be preferable to have your blood drawn at a [facility] lab. However, should you choose to have it done at a lab other than [facility], please have the results faxed to [phone]. * You will be notified by mail of the test results in approximately 2 weeks with instructions for any changes that need to be made as a result of your tests. If changes are made in your supplements, rajat recheck those abnormal tests again in three months. Appointments are required for lab visits except at the [facility] lab. Please call [phone] to schedule a lab visit at other [facility] locations. GATION SYSTEM INSTALLER documented in this encounter Progress Notes Pamela Hicks - 03/09/2012 11:30 AM CST Date of Visit: 03/09/2012 Date of Original Surgery: 05/14/2009 Type of Original Surgery: APS band Date of Revisional surgery: Type: None No past medical history on file. Patient Symptoms: Hungry within 4-5 Hours and Eating large portions - Pt. denies persistent pain with eating, frothing ,persistent sensation of food sticking, vomiting,heartburn, reflux, constipation, diarrhea, taste aversion, bloating, epigastric pain, recent airplane travel Meals per day 3 Food Volumes 1 cup, greater than 1 cup Diary Consumption Milk 2 servings Protein intake adequate yes Fluid intake >64 oz Alcohol/Tobacco/Caffeine: History Smoking status ??? Never Smoker Smokeless tobacco ??? Not on file History Alcohol Use: Not on file Alcoholic Drinks/day: Amount:1-2 drinks; Freq:Never; Exercise: aerobic, less than 30 minutes and 1-3 times weekly Objective Visit Weight: 230 lb 9.6 oz (618503 g) Objective: General: NAD Respiratory: No distress is noted Abdomen: Soft and non-tender Wound: No incisional hernia is seen Skin: Intact Neuropsych: Patient is alert and oriented. Exhibits appropriate affect Band adjustment section Patient is currently in the: Yellow zone - Fluid needs to be added Adjustment date of last adjustment: 11/07 amount volume after last adjustment: 6.2ml amount adjusted: +.3ml total amount in band after visit: 6.5ml Assessment Obesity Plan Dietary recommendations: Discussed with the [...] 30 minutes, five times per week. See skid road man as needed See Physician Gas Charger 1 month(s) GATION SYSTEM INSTALLER documented in this encounter Plan of Treatment Not on filedocumented as of this encounter Visit Diagnoses Diagnosis Obesity (HRC) - Primary Obesity, unspecified Bariatric surgery status Other and unspecified postsurgical nonab sorption Other symptoms concerning nutrition, met abolism, and development Fitting and adjustment of gastric lap ba nd documented in this encounter Care Teams Wood Piler Relationship Specialty Start Date End Date Terell Maloly MD PCP - General 07/01/10 11/08/12 [address] [place] [address] documented as of this encounter
--- OUTSIDE RECORDS SUMMARY | 2022-02-13 12:10 | XMS_ITS | Encounter Summary ---
:1950 Author Organization [employer] Address [address] [place] [address] Care Team Providers Name Role Phone Nancy Coffey MBKULDIP Primary Care Provider Encounter Details Date Type Department Care Team Description 11/01/2013 Hospital Encounter [facility] Pamela Hicks Bariatric surgery status; [address] Lavelle PA-C Vomiting alone [place], [place] [address] [address] [address] [place], [place] [id number] Social History Tobacco Use Types Packs/Day Years Used Date Smoking Tobacco: Never Alcohol Use Standard Drinks/Week Comments Not Asked 0 (1 standard drink = 0.6 oz pure alcoho l) Sex Assigned at Date Recorded Female 01/13/2021 5:27 PM CDT documented as of this encounter Medications at Time of Discharge [...] 0 (PREMARIN) 0.625 MG/GM vaginally. vaginal cream FLUTICASONE PROPIONATE 1 spray twice daily 0 HFA 44 MCG/ACT IN AERO PROAIR HFA 108 (90 Inhale 2 puffs by 0 BASE) MCG/ACT IN AERS mouth every 4-6 hours as needed for breathing difficulties. Do not use more than 12 puffs in 24 hours. TYLENOL PM EXTRA 1 tablet daily 0 STRENGTH 500-25 MG OR TABS clonazePAM (KLONOPIN) 1 Take 1.5 tablets by 135 0 10/15/2015 MG tablet mouth nightly. LW Addl Instr:Please delete the refills on the 30 day supply, no refills on this 90 day supply Indicated for: Anxiety estrogens, conjugated Place vaginally daily 0 08/201310/15/2015 (PREMARIN) 0.625 MG/GM (every 24 hours). vaginal cream fluticasone (FLOVENT Inhale 1 puff 2 times 36 3 10/2807/09/2014 HFA) 110 mcg/actuation daily. LW Addl inhaler Instr:Rinse mouth/gargle after use. Indicated for: Asthma pseudoephedrine (AKA Take 1 tablet by mouth 0 01/03/2014 SUDAFED) 120 MG 12 hour daily as needed. LW release tablet Addl Instr:Indicated for: Nasal Congestion traMADol (AKA ULTRAM) Take 50 mg by mouth 0 03/0901/03/2014 50 MG tablet every 6 hours as needed. unknown medication Indications: PN: 0 05/01/2010 10/15/2015 azelastine (ASTELIN) Place into each 30 3 11/22/2008 03/08/2018 0.1 % nasal solution nostril 2 times daily. LW Addl Instr:Indicated for: Rhinitis cholecalciferol Take 2,000 Units by 0 03/08/2018 (VITAMIN D) 1000 UNIT mouth daily. tablet CLONAZEPAM 1 MG OR TABS 1.5mg daily 0 03/08/2018 ferrous sulfate Take 325 mg by mouth 0 11/01/2013 03/08/2018 (FERROUS SULFATE) 325 daily (every 24 (65 FE) MG tablet hours). fexofenadine (AKA Take 180 mg by mouth 0 03/08/2018 CECI) 180 MG tablet daily as needed. fexofenadine (CECI) Take 1 tablet by mouth 0 0 07/10/2009 03/08/2018 180 MG tablet daily (every 24 hours). LW Addl Instr:Indicated for: Allergies levothyroxine (AKA Take 137 mcg by mouth 0 10/01/2021 SYNTHROID) 137 MCG daily. tablet levothyroxine Take 1 tablet by mouth 0 07/10/2009 10/01/2021 (SYNTHROID) 137 MCG daily (every 24 tablet hours). LW Addl Instr:Indicated for: Hypothyroidism mirtazapine (REMERON) Take 1 mg by mouth 0 201110/01/2021 30 MG tablet nightly. Multiple Take 1 tablet by mouth 3 07/10/2009 Vitamins-Minerals daily (every 24 (THERAPEUTIC hours). MULTIVIT/MINERAL) tablet OMEGA 3 1000 MG OR CAPS 1 capsule daily 0 03/08/2018 omega-3 fatty acids LW Comment:ON HOLD 0 05/14/19 10 11/06/2015 (FISH OIL) 1000 MG capsule simvastatin (ZOCOR) 40 Take 1 tablet by mouth 90 3 0 11/22/2008 10/01/2021 MG tablet every evening. LW Addl Instr:Indicated for: High Cholesterol unknown medication Indications: PN: 0 04/10/2009 11/06/2015 documented as of this encounter Plan of Treatment Not on filedocumented as of this encounter Procedures Procedure Name Priority Date/Time Associated Diagnosis Comme nts FL UGI W KUB Routine 11/01/2013 2:03 PM Bariatric surgery Resu lts for this CDT status procedure are in the Vomiting alone results secti on. documented in this encounter Results FL UGI W KUB (11/01/2013 2:03 PM CDT) Anatomical Region Laterality Modality Abdomen Other Specimen (Source) Anatomical Location Collection Method / Collectio n Time Received Time / Laterality Volume Impressions 11/01/2013 2:27 PM CDT IMPRESSION: 1. No evidence for gastric band slippage . 2. Gastric pouch is slightly prominent w ithout significant delay in emptying. Narrative 11/01/2013 2:27 PM CDT COMPARISON: ??05/09/2010 FINDINGS: ??Preliminary x-ray demonstrat es a gastric band to be in appropriate position, unchanged from the prior study. The patient swallowed barium without difficulty. There is no evidence for band sl ippage. There is a mildly prominent asuncion bjorn pouch although there is relatively rapid empty ing of the pouch into the more distal stomach. Procedure Note Earl Cortez MD - 09/15/2015Forma tting of this note might be different from the original. COMPARISON: 05/09/2010 FINDINGS: Preliminary x-ray demonstrates a gastric band to be in appropriate position, unchanged from the prior study. The patient swallowed barium without difficulty. There is no evidence for band slippage. There is a mildly prominent gastric pouch although there is relatively rapid empty ing of the pouch into the more distal stomach. IMPRESSION IMPRESSION: 1. No evidence for gastric band slippage . 2. Gastric pouch is slightly prominent w ithout significant delay in emptying. Pamela MUELLER FL documented in this encounter Visit Diagnoses Diagnosis Bariatric surgery status Vomiting alone documented in this encounter Care Teams Product Development Technician Relationship Specialty Start Date End Date Nancy Coffey MBBS PCP - General 11/09/12 09/29/[address] [id number] documented as of this encounter
--- OUTSIDE RECORDS SUMMARY | 2022-02-13 12:10 | XMS_ITS | Encounter Summary ---
:1950 Author Organization [employer] Address [address] [place] [address] Care Team Providers Name Role Phone Nancy Coffey Primary Care Provider Reason for Visit Reason Comments Band Surg Followup Encounter Details Date Type Department Care Team Description 11/01/2013 Office Visit [facility] [facility] Pamela Hicks O besity (Primary Dx); & [facility] PA-C Bariatric surgery status; [address] [facility]. [address] Vomiting alone; [address] [place] [address] [phone] Social History Tobacco Use Types Packs/Day Years Used Date Smoking Tobacco: Never Alcohol Use Standard Drinks/Week Comments Not Asked 0 (1 standard drink = 0.6 oz pure alcoho l) Sex Assigned at Date Recorded Female 01/13/2021 5:27 PM CDT documented as of this encounter Last Filed Vital Signs Vital Sign Reading Time Taken Comments Blood Pressure 130/92 11/01/2013 12:56 PM CDT Pulse 67 11/01/2013 12:56 PM CDT Temperature - - Respiratory Rate - - Oxygen Saturation - - Inhaled Oxygen Concentration - - Weight 124 kg (273 lb 4.8 oz) 11/01/2013 12:56 PM CDT Height 166.4 cm (5' 5.5) 11/01/2013 12:56 PM CDT Body Mass Index 44.79 11/01/2013 12:56 PM CDT documented in this encounter Patient Instructions Patient InstructionsSeunMartha figueroaDAVI - 11/01/2013 12:46 PM CDT Images from the original note were [...] from 5:30 to 6:30 pm in the first floor conference room of the [facility]. This is a support group for those [...] day! Telephone Numbers [facility] - [phone] Weekdays 8:30 to 5:00 [facility] - [phone] After hours and weekends for emergencies only. Identify yourself as a bariatric surgery patient and ask to speak to the surgeon on-call. -Check us out on Facebook and Twitter [email or web address] .lab ins documented in this encounter Progress Notes Pamela Hicks - 11/02/2013 10:15 AM CDT Date of Visit: 11/02/2013 Date of Original Surgery: Past Medical History Diagnosis Date ??? Obesity 03/09/2012 ??? Laparoscopic adjustable gastric band, APS 05/14/2009 ??? Laparoscopic adjustable gastric band, APS 05/14/2009 Patient Symptoms: Persistent pain with eating, frothing, Vomiting, Diarrhea, Taste aversion, Bloating and Eating largeportions. Symptoms happen a couple times a month. Weight gain of 43 lbs since last visit 02/2012. - Pt. denies, frothing ,persistent sensation of food sticking, heartburn, reflux, constipation, epigastric pain, recent airplane travel Meals per day 3 Food Volumes greater than 1 cup Diary Consumption Milk 2 servings Protein intake adequate no Fluid intake <48 oz Alcohol/Tobacco/Caffeine: History Smoking status ??? Never Smoker Smokeless tobacco ??? Not on file History Alcohol Use: Not on file Comment: Alcoholic Drinks/day: Amount:1-2 drinks; Freq:Never; Exercise: aerobic, less than 30 minutes and 1-3 times weekly Objective Visit Weight: 123.968 kg (273 lb 4.8 oz) Objective: General: NAD Respiratory: No distress is noted Abdomen: Soft and non-tender Wound: No incisional hernia is seen Skin: Intact Neuropsych: Patient is alert and oriented. Exhibits appropriate affect Band adjustment section Patient is currently in the: Red Zone - fluid needs to be removed Adjustment date of last adjustment: 03/09 amount volume after last adjustment: 6.5ml amount adjusted: -2.3ml total amount in band after visit: 4.2ml Assessment Obesity Symptoms secondary to band being too tight, Vomiting Esophageal dilation Plan Dietary recommendations: Discussed with the patient [...] 30 minutes, five times per week. See floor covering installer as needed See Physician Reel Fed Printer 2 month(s) Due to the gastric band being too tight and the resulting swelling you will need to follow a clear to full liquid diet for a minimum of 24 hours. If you are unable to tolerate a general diet after 3 days then contact a bariatric RN. The UGI results were reviewed with the patient. The band is in appropriate position however there isesophageal dilation. Recommend leaving the band unfilled for 2 months. In 2 months we will repeat the UGI before considering resuming adjustments. documented in this encounter Plan of Treatment Not on filedocumented as of this encounter Visit Diagnoses Diagnosis Obesity (HRC) - Primary Obesity, unspecified Bariatric surgery status Vomiting alone Esophageal abnormality Unspecified disorder of esophagus documented in this encounter Care Teams Destination Sign Repairer Relationship Specialty Start Date End Date Nancy Coffey MBBS PCP - General 11/09/12 09/29/21 1601 [facility] [address] [place] [address] documented as of this encounter
--- OUTSIDE RECORDS SUMMARY | 2022-02-13 12:10 | XMS_ITS | Encounter Summary ---
:1950 Author Organization [employer] Address [address] [place] [address] Care Team Providers Name Role Phone Unassigned, Provider Primary Care Provider Unavailable Encounter Details Date Type Department Care Team Description 05/09/2010 Hospital Encounter EPISCOPAL CONVERSION Pamela Hicks PA-C [address] [address] (Wo rk) Social History Tobacco Use Types [...] MG OR 1 tablet daily 0 TB24 FLUTICASONE PROPIONATE 1 spray twice daily 0 HFA 44 MCG/ACT IN AERO PROAIR HFA 108 (90 Inhale 2 puffs by 0 BASE) MCG/ACT IN AERS mouth every 4-6 hours as needed for breathing difficulties. Do not use more than 12 puffs in 24 hours. TYLENOL PM EXTRA 1 tablet daily 0 STRENGTH 500-25 MG OR TABS buPROPion (BUDEPRION Take 1 tablet by mouth 90 3 11/10/2011 XL) 300 MG 24 hour daily (every 24 release tablet hours). LW Addl Instr:Indicated for: Depression cholecalciferol (AKA Take by mouth daily 0 200903/09/2012 VITAMIN D3) 1000 UNITS (every 24 hours). tablet clonazePAM (KLONOPIN) 1 Take 1.5 tablets by 135 0 10/15/2015 MG tablet mouth nightly. LW Addl Instr:Please delete the refills on the 30 day supply, no refills on this 90 day supply Indicated for: Anxiety fluticasone (FLOVENT Inhale 1 puff 2 times 36 3 10/2807/09/2014 HFA) 110 mcg/actuation daily. LW Addl inhaler Instr:Rinse mouth/gargle after use. Indicated for: Asthma lisinopril (AKA Take 1 tablet by mouth 90 3 09/26/19 10 11/10/2011 ZESTRIL) 5 MG tablet daily (every 24 hours). LW Addl Instr:Indicated for: High Blood Pressure pseudoephedrine (AKA Take 1 tablet by mouth 0 01/03/2014 SUDAFED) 120 MG 12 hour daily as needed. LW release tablet Addl Instr:Indicated for: Nasal Congestion triamterene-hydrochloro Take 1 tablet by mouth 90 3 10/24/2009 03/09/2012 thiazide (AKA daily (every 24 MAXZIDE-25) 37.5-25 MG hours). LW Addl tablet Instr:Indicated for: High Blood Pressure unknown medication Indications: PN: 0 05/01/2010 10/15/2015 azelastine (ASTELIN) Place into each 30 3 11/22/2008 03/08/2018 0.1 % nasal solution nostril 2 times daily. LW Addl Instr:Indicated for: Rhinitis CALCIUM 600 OR 1 tablet daily 0 2011 CENTRUM SILVER OR 1 tablet daily 0 05/2011 CLONAZEPAM 1 MG OR TABS 1.5mg daily 0 03/08/2018 ERICKA C OR 1 tablet daily 0 06/30/2011 fexofenadine (AKA Take 180 mg by mouth [...] tablet hours). LW Addl Instr:Indicated for: Hypothyroidism lisinopril (AKA Take 5 mg by mouth 0 0 06/30/2011 ZESTRIL) 5 MG tablet daily. Multiple Take 1 tablet by mouth 3 [...] evening. LW Addl Instr:Indicated for: High Cholesterol SIMVASTATIN 40 MG OR Take one tablet by 0 06/30/2011 TABS mouth every day. TRIAMTERENE-HCTZ Take one tablet by 0 06/30/2011 37.5-25 MG OR TABS mouth every morning. unknown medication Indications: PN: 0 04/10/2009 11/06/2015 VITAMIN D 1000 UNIT OR 1 tablet daily 0 06/30/2011 CAPS documented as of this encounter Plan of Treatment Not on filedocumented as of this encounter Procedures Procedure Name Priority Date/Time Associated Diagnosis Comme nts CA UGI ROUTINE Routine 05/09/2010 10:25 AM Result s for this PHARMACY MANAGER procedure are i n the results section . documented in this encounter Results FL UGI Routine (05/09/2010 10:25 AM PHARMACY MANAGER) Anatomical Region Laterality Modality Abdomen Other Specimen (Source) Anatomical Location Collection Method / Collectio n Time Received Time / Laterality Volume Narrative 05/09/2010 10:25 AM PHARMACY MANAGER When compared with 05/15/2009, the gastric band remains correctly oriented. ??Barium passes readily throug h the band and empties from the stomach. ??No evident complication. Dictating JOSE ENRIQUE PRICE RADIOLOGIST Procedure Note Jose Enrique Mak MD - 09/12/2015Formatti ng of this note might be different from the original. When compared with 05/15/2009, the gastr ic band remains correctly oriented. Barium passes readily through the band and empties from the stomach. No evident complication. Dictating JOSE ENRIQUE PRICE RADIOLOGIST Pamela MUELLER FL documented in this encounter Visit Diagnoses Not on filedocumented in this encounter Care Teams Electrical Prospecting Operator Relationship Specialty Start Date End Date Unassigned, Provider PCP - General 03/06/00 06/30/[address] [place] [address] documented as of this encounter
--- OUTSIDE RECORDS SUMMARY | 2022-02-13 12:10 | XMS_ITS | Encounter Summary ---
:1950 Author Organization [employer] Address [address] [place] [address] Care Team Providers Name Role Phone Nancy Coffey Primary Care Provider Encounter Details Date Type Department Care Team Description 12/27/2013 Notes/Orders [place] Bariatric Sempf, Rhiannon L R N Vitamin B6 deficiency Surgery & Weight [address] (Lita oscar Dx) Center [id number] [place], [place] [address] [address] [place] [address] Social History Tobacco Use Types Packs/Day Years Used Date Smoking Tobacco: Never Alcohol Use Standard Drinks/Week Comments Not Asked 0 (1 standard drink = 0.6 oz pure alcoho l) Sex Assigned at Date Recorded Female 01/13/2021 5:27 PM CDT documented as of this encounter Plan of Treatment Not on filedocumented as of this encounter Visit Diagnoses Diagnosis Vitamin B6 deficiency (HRC) - Primary Vitamin B6 deficiency documented in this encounter Care Teams Executive Director Contract Shop Relationship Specialty Start Date End Date Nancy Coffey MBBS PCP - General 11/09/12 09/29/[address] [id number] documented as of this encounter
--- OUTSIDE RECORDS SUMMARY | 2022-02-13 12:10 | XMS_ITS | Encounter Summary ---
:1950 Author Organization [employer] Address [address] [place] [address] Care Team Providers Name Role Phone Nancy Coffey MBBS Primary Care Provider Encounter Details Date Type Department Care Team Description 01/03/2014 Hospital Encounter [facility] Pamela Hicks Hx of laparoscopic [address] Lavelle PA-C gastric banding [place], [place] [address] [id number] [address] [address] [place], [place] [phone] Social History Tobacco Use Types Packs/Day Years [...] Instr:Rinse mouth/gargle after use. Indicated for: Asthma unknown medication Indications: PN: 0 05/01/2010 10/15/2015 [...] 04/10/2009 11/06/2015 documented as of this encounter Miscellaneous Notes Medication History - Daniel Garcia MD - 01/03/2014 11:59 PM CDT INPATIENT MEDS Encounter Date: 01/03/14 barium (BAROSPHERE) 60 % (w/v) oral suspension 355 mL Start Date:01/03/14, End Date:01/03/14, Frequency:ONCE Taken Dose Action User Route Site Recorded Comment Reason 01/03/14 1000 60 mL Given Lucía Jimenez Oral - 01/03/14 0943 - - documented in this encounter Plan of Treatment Not on filedocumented as of this encounter Procedures Procedure Name Priority Date/Time Associated Diagnosis Comme nts FL UGI W KUB Routine 01/03/2014 9:43 AM Hx of laparoscopic Res ults for this CDT gastric banding procedure ar e in the results section. documented in this encounter Results FL UGI W KUB (01/03/2014 9:43 AM CDT) Anatomical Region Laterality Modality Abdomen Other Specimen (Source) Anatomical Location Collection Method / Collectio n Time Received Time / Laterality Volume Impressions 01/03/2014 10:33 AM CDT IMPRESSION: ?? 1. No evidence of gastric band slippage. 2. No evidence of obstruction. Narrative 01/03/2014 10:33 AM CDT COMPARISON: ??11/01/2013 FINDINGS: ??Preliminary x-ray demonstrat es gastric band to be in grossly stable position. Patient swallowed barium without difficulty. Prominent gastric pouch is slightly decreased since the prior exami nation. Rapid emptying from the gastric pouch into the remainder of the stomach and small b owel. No evidence of bowel obstruction. Procedure Note Gume Benedict MD - 09/15/2015For matting of this note might be different from the original. COMPARISON: 11/01/2013 FINDINGS: Preliminary x-ray demonstrates gastric band to be in grossly stable position. Patient swallowed barium without difficulty. Prominent gastric pouch is slightly decreased since the prior examination. Rapid emptying from the gastric pouch into the remainder of the stomach and small b owel. No evidence of bowel obstruction. IMPRESSION IMPRESSION: 1. No evidence of gastric band slippage. 2. No evidence of obstruction. Pamela JOHNSON documented in this encounter Visit Diagnoses Diagnosis Hx of laparoscopic gastric banding Bariatric surgery status documented in this encounter Care Teams Hand Icer Relationship Specialty Start Date End Date Nancy Coffey MBBS PCP - General 11/09/12 09/29/21 1601 [facility] [address] [place] [address] documented as of this encounter
--- OUTSIDE RECORDS SUMMARY | 2022-02-13 12:10 | XMS_ITS | Encounter Summary ---
:1950 Author Organization [employer] Address [address] [place] [address] Care Team Providers Name Role Phone Nancy Coffey Primary Care Provider Encounter Details Date Type Department Care Team Description 11/01/2013 Notes/Orders [place] Bariatric Surgery & SempfRhiannon RN Weight Center [address] [facility] [address] [facility] [address] [place] [address] [place] [address] Social History Tobacco Use Types [...] on filedocumented in this encounter Care Teams Rn First Assist Relationship Specialty Start Date End Date Nancy Coffey MBBS PCP - General 11/09/12 09/29/21 1601 [facility] [address] [place], [place] [address] documented as of this encounter
--- OUTSIDE RECORDS SUMMARY | 2022-02-13 12:10 | XMS_ITS | Encounter Summary ---
:1950 Author Organization [employer] Address [address] [place] [address] Care Team Providers Name Role Phone Nancy Coffey Primary Care Provider Reason for Visit Reason Comments Band Surg Followup Encounter Details Date Type Department Care Team Description 10/15/2015 Office Visit [facility] Jose G Aly Nausea and vomiting, unspecified intactability, vomiting of unspecified type (Primary Dx); Surgery & Weight E, PA-C Bariatric surgery status; Center [address] [place] [address] Dysphagia, unspecified type; [facility] [address] Morbid obesity with BMI of 40.0-44.9, ad ult (HRC); [address] [place], [place] Fitting [place] [address] [id number] [phone] Social History Tobacco Use Types Packs/Day Years Used Date Smoking Tobacco: Never Alcohol Use Standard Drinks/Week Comments Not Asked 0 (1 standard drink = 0.6 oz pure alcoho l) Sex Assigned at Date Recorded Female 01/13/2021 5:27 PM CDT documented as of this encounter Last Filed Vital Signs Vital Sign Reading Time Taken Comments Blood Pressure 128/76 10/15/2015 2:30 PM CDT Pulse 88 10/15/2015 2:30 PM CDT Temperature - - Respiratory Rate - - Oxygen Saturation - - Inhaled Oxygen Concentration - - Weight 119.3 kg (263 lb) 10/15/2015 2:30 PM CDT Height - - Body Mass Index 43.77 09/03/2014 9:52 AM CDT documented in this encounter Patient Instructions Patient InstructionsLizette Lu LPN - 10/15/2015 3:10 PM CDT 1 hour appt with Bariatrician for Medical Weight Management Nothing to eat or drink after midnight Not even gum chewing. Check in is at [address] [facility] If questions call radiology at [phone] documented in this encounter Progress Notes Jose G Aly PA-C - 11/06/2015 9:46 AM CDT Date of Visit: 10/15/2015 Date of Original Surgery: Past Medical History Diagnosis Date ??? Obesity (HRC) 03/09/2012 ??? Laparoscopic adjustable gastric band, APS 05/14/2009 ??? Laparoscopic adjustable gastric band, APS 05/14/2009 Patient Symptoms: Persistent pain with eating, Vomiting, Heartburn, Constipation and Bloating. Patient's symptoms began 6 months ago with occasional sensation of food sticking and reflux. She states that yesterday she awoke with no appetite, and when she had a smoothie she vomited. She is experiencing epigastric pressure and feels burpy even when drinking water. Patient has not been into clinic in one year. three months ago she underwent left hip replacement. Unfortunately, the hip became displaced one week later. She also developed pulmonary emboli. She is currently taking Warfarin and has almost completed her physical therapy for her hip. - Pt. denies frothing, diarrhea, taste aversion, recent airplane travel Meals per day 2, 3 Food Volumes 1 cup, greater than 1 cup Diary Consumption Milk 2 servings Protein intake adequate yes Fluid intake <48 oz Alcohol/Tobacco/Caffeine: History Smoking status ??? Never Smoker Smokeless tobacco ??? Not on file History Alcohol Use No Comment: Alcoholic Drinks/day: Amount:1-2 drinks; Freq:Never; Exercise: none - physical therapy s/p left hip replacement Objective Visit Weight: 263 lb (171635 g) General: NAD Respiratory: No distress is noted Abdomen: Soft and non-tender Wound: No incisional hernia is seen Skin: Intact Neuropsych: Patient is alert and oriented. Exhibits appropriate affect Band adjustment section Patient is currently in the: Red Zone - fluid needs to be removed Adjustment date of last adjustment: 09/13/14 amount volume after last adjustment: 6.5 ml amount adjusted: -2.5 ml total amount in band after visit: 4 ml Assessment Morbid Obesity and Symptoms secondary to band being too tight Vomiting, dysphagia Plan Dietary recommendations: Discussed with the patient [...] 30 minutes, five times per week. See dry starch operator as needed See Physician Insurance Executive 1 month(s) UGI ordered to rule out esophageal dilatation and slipped band Medical Weight Management packet given to patient - given that patient may need to go several monthswith her band half empty, fiction and nonfiction writer prose and patient discussed medical weight management as a complementary plan for weight loss documented in this encounter Plan of Treatment Not on filedocumented as of this encounter Visit Diagnoses Diagnosis Nausea and vomiting, unspecified intacta bility, vomiting of unspecified type - Primary Bariatric surgery status Dysphagia, unspecified type Morbid obesity with BMI of 40.0-44.9, ad ult (HRC) Fitting and adjustment of gastric lap ba nd documented in this encounter Care Teams Table Keeper Relationship Specialty Start Date End Date Nancy Coffey MBBS PCP - General 11/09/12 09/29/21 [address] [place] [address] documented as of this encounter
--- OUTSIDE RECORDS SUMMARY | 2022-02-13 12:10 | XMS_ITS | Encounter Summary ---
:1950 Author Organization [employer] Address [address] [place] [address] Care Team Providers Name Role Phone Nancy Coffey Primary Care Provider Reason for Visit Reason Comments Band Surg Followup Encounter Details Date Type Department Care Team Description 01/03/2014 Office Visit [facility] Pamela Hicks M orbid obesity (Primary Dx); & Weight Center PA-C Bariatric surgery status; [address] [facility] [address] Fitting and adjustment of gastric lap ba mn [address] [place] [address] [phone] Social History Tobacco Use Types Packs/Day Years Used Date Smoking Tobacco: Never Alcohol Use Standard Drinks/Week Comments Not Asked 0 (1 standard drink = 0.6 oz pure alcoho l) Sex Assigned at Date Recorded Female 01/13/2021 5:27 PM CDT documented as of this encounter Last Filed Vital Signs Vital Sign Reading Time Taken Comments Blood Pressure 132/78 01/03/2014 10:34 AM CDT Pulse - - Temperature - - Respiratory Rate - - Oxygen Saturation - - Inhaled Oxygen Concentration - - Weight 125.4 kg (276 lb 8 oz) 01/03/2014 10:34 AM CDT Height 165.1 cm (5' 5) 01/03/2014 10:34 AM CDT Body Mass Index 46.01 01/03/2014 10:34 AM CDT documented in this encounter Patient Instructions Patient InstructionsSheba Cortez, RN - 01/03/2014 10:26 AM CDT Images from the original note [...] the first floor conference [facility]. This is a support group for those [...] day! Telephone Numbers Bariatric Surgery Center - [phone] Weekdays 8:30 to 5:00 [facility] - [phone] After hours and weekends for emergencies only. Identify yourself as a bariatric surgery patient and ask to speak to the surgeon on-call. -Check us out on Facebook and Twitter [email or web address] documented in this encounter Progress Notes Pamela Hicks - 01/03/2014 2:36 PM CDT Date of Visit: 01/03/2014 Date of Original Surgery: Past Medical History [...] servings Protein intake adequate no Fluid intake 48-64 oz Alcohol/Tobacco/Caffeine: History Smoking status ??? Never Smoker Smokeless tobacco ??? Not on file History Alcohol Use ??? 0.6 oz/week ??? 1 Glasses of wine per week Comment: Alcoholic Drinks/day: Amount:1-2 drinks; Freq:Never; Exercise: none Objective Visit Weight: 276 lb 8 oz (241187 g) Objective: General: NAD Respiratory: No distress is noted Abdomen: Soft and non-tender Wound: No incisional hernia is seen Skin: Intact Neuropsych: Patient is alert and oriented. Exhibits appropriate affect Band adjustment section Patient is currently in the: Yellow zone - Fluid needs to be added Adjustment date of last adjustment: 11/09 amount volume after last adjustment: 4.2ml amount adjusted: +.7ml total amount in band after visit: 4.9ml Assessment Morbid Obesity Plan Dietary recommendations: Discussed [...] 30 minutes, five times per week. See car repairer as needed See Physician Manager Pe 1 month(s) documented in this encounter Plan of Treatment Not on filedocumented as of this encounter Visit Diagnoses Diagnosis Morbid obesity (HRC) - Primary Morbid obesity Bariatric surgery status Fitting and adjustment of gastric lap ba nd documented in this encounter Care Teams Automotive Electrical Helper Relationship Specialty Start Date End Date Nancy oCffey MBBS PCP - General 11/09/12 09/29/21 [address] [place] [address] documented as of this encounter
--- OUTSIDE RECORDS SUMMARY | 2022-02-13 12:10 | XMS_ITS | Encounter Summary ---
:1950 Author Organization [employer] Address [address] [place] [address] Care Team Providers Name Role Phone Nancy Coffey Primary Care Provider Encounter Details Date Type Department Care Team Description 11/02/2013 Notes/Orders [facility] Sheba Cortez Hx of lap aroscopic Surgery & Weight A, RN gastric ban [facility] (Primary Dx) [address] [facility] [address] [place] [address] Social History Tobacco Use Types Packs/Day Years Used Date Smoking Tobacco: Never Alcohol Use Standard Drinks/Week Comments Not Asked 0 (1 standard drink = 0.6 oz pure alcoho l) Sex Assigned at Date Recorded Female 01/13/2021 5:27 PM CDT documented as of this encounter Plan of Treatment Not on filedocumented as of this encounter Visit Diagnoses Diagnosis Hx of laparoscopic gastric banding - [facility] Bariatric surgery status documented in this encounter Care Teams Manometer Technician Relationship Specialty Start Date End Date Nancy Coffey MBBS PCP - General 11/09/12 09/29/[address] [address] documented as of this encounter
--- OUTSIDE RECORDS SUMMARY | 2022-02-13 12:10 | XMS_ITS | Encounter Summary ---
:1950 Author Organization [employer] Address [address], [place] [address] Care Team Providers Name Role Phone Nancy Coffey Primary Care Provider Reason for Visit Reason Comments Band Surg Followup Encounter Details Date Type Department Care Team Description 09/03/[address] [facility] Jose G Aly Morbid obesity (Primary Dx); Surgery & Weight E, PA-C Fitting and adjustment of gastric lap ba nd; Center [address] [facility] Bariatric surgery status; [address] [facility] Other and unspecified postsurgical nonab sorption; [address] [place], [place] Other symptoms concerning nu trition, metabolism, and development; [place] [address] Disorder of copper metabolism; [id number] Intestinal malabsorption [phone] Social History Tobacco Use Types Packs/Day Years Used Date Smoking Tobacco: Never Alcohol Use Standard Drinks/Week Comments Not Asked 0 (1 standard drink = 0.6 oz pure alcoho l) Sex Assigned at Date Recorded Female 01/13/2021 5:27 PM CDT documented as of this encounter Last Filed Vital Signs Vital Sign Reading Time Taken Comments Blood Pressure 135/85 09/03/2014 9:52 AM CDT Pulse 72 09/03/2014 9:52 AM CDT Temperature - - Respiratory Rate - - Oxygen Saturation - - Inhaled Oxygen Concentration - - Weight 120.3 kg (265 lb 4.8 oz) 09/03/2014 9:52 AM CDT Height 165.1 cm (5' 5) 09/03/2014 9:52 AM CDT Body Mass Index 44.15 09/03/2014 9:52 AM CDT documented in this encounter Patient Instructions Patient InstructionsSheba Cortez RN - 09/03/2014 9:34 AM CDT Images from the original note [...] day! Telephone Numbers Bariatric Surgery Center - [phone] Weekdays 8:30 to 5:00 [facility] [phone] After hours and weekends for emergencies only. Identify yourself as a bariatric surgery patient and ask to speak to the surgeon on-call. -Check us out on Facebook and Twitter [email or web address] documented in this encounter Progress Notes Jose G Aly PA-C - 09/05/2014 1:42 PM CDT Date of Visit: 09/03/2014 Date of Original Surgery: Past Medical History Diagnosis Date ??? Obesity (ACG) 03/09/2012 ??? Laparoscopic adjustable gastric band, APS 05/14/2009 ??? Laparoscopic adjustable gastric band, APS 05/14/2009 Patient Symptoms: Hungry within 4-5 Hours and Eating large portions. She recently received cortisone injections in herleft knees and both thumbs. Patient currently suffering from allergies and has post nasal drainage. She has no symptoms of her band being too tight from the drainage. Patient is retiring at the end of the month. She is excited about the transition and eager to travel. However, she is feeling stressed about tying up loose ends with her employment and training her replacement. She finds herself cravingand snacking on salty snacks in the evening. Patient is frustrated that her weight is fluctuating within 5 lbs. Director Of Sales And Marketing brought up possible Medical Weight Management program. Patient expressed interest and will take time to think about the program. - Pt. denies persistent pain with eating, [...] drinks; Freq:Never; Exercise: less than 30 minutes Objective Visit Weight: 265 lb 4.8 oz (780127 g) General: NAD Respiratory: No distress is noted Abdomen: Soft and non-tender Wound: No incisional hernia is seen Skin: Intact Neuropsych: Patient is alert and oriented. Exhibits appropriate affect Band adjustment section Patient is currently in the: Yellow zone - Fluid needs to be added Adjustment date of last adjustment: 07/09/14 amount volume after last adjustment: 6.2 ml amount adjusted: +0.3 ml (smaller adjustment made due to patient's post nasal drainage and increased risk of band being too tight) total amount in band after visit: 6.5 ml Assessment Morbid Obesity Plan Dietary recommendations: [...] 30 minutes, five times per week. 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
--- OUTSIDE RECORDS SUMMARY | 2022-02-13 12:10 | XMS_ITS | Encounter Summary ---
:1950 Author Organization [employer] Address [address] [place] [address] Care Team Providers Name Role Phone Nancy Coffey Primary Care Provider Encounter Details Date Type Department Care Team Description 10/18/2015 Imaging [facility] Bariatric surgery status; [address] [employer] Nausea and vomiting, unspeci fied intactability, [place] [address] Social History Tobacco Use Types Packs/Day Years [...] Comme nts [place] UGI W ESOPHAGUS Routine 10/18/2015 8:25 AM Bariatric surger y Results for this CDT status procedure are in Nausea and vomiting, the res ults unspecified section. intactability, vomiting of unspecified type documented in this encounter Results [place] UGI W Esophagus (10/18/2015 8:25 AM CDT) Anatomical Region Laterality Modality Chest, Abdomen, Neck Other Specimen (Source) Anatomical Location Collection Method / Collectio n Time Received Time / Laterality Volume Impressions 10/18/2015 8:45 AM CDT IMPRESSION: ??Stable examination compared with 01/03/2014. Total fluoroscopy time: 1.0 minutes. Narrative 10/18/2015 8:45 AM CDT COMPARISON: ??01/03/2014. FINDINGS: ??The patient is status post g astric banding. Supervisor Taping film demonstrates a similar appearance of the gastric band and port. Surgical clips in the right upper quadrant are presumably from prior ch olecystectomy. The patient swallowed bar ium without difficulty. Contrast passes through the gastric band without delay. Visualized stomach and proximal small bowel are unremarkable. Procedure Note Leni Fabian MD - 11/25/2015Formattin g of this note might be different from the original. COMPARISON: 01/03/2014. FINDINGS: The patient is status post gas tric banding. Supervisor Taping film demonstrates a similar appearance of the gastric band and port. Surgical clips in the right upper quadrant are presumably from prior cholecystectomy. The patient swallowed b arium without difficulty. Contrast passes through the gastric band without delay. Visualized stomach and proximal small bowel are unremarkable. IMPRESSION IMPRESSION: Stable examination compared with 01/03/2014. Total fluoroscopy time: 1.0 minutes. Jose G JOHNSON documented in this encounter Visit Diagnoses Diagnosis Bariatric surgery status Nausea and vomiting, unspecified intacta bility, vomiting of unspecified type documented in this encounter Care Teams Motor Vehicle Examiner Relationship Specialty Start Date End Date Nancy Coffey MBBS PCP - General 11/09/12 09/29/[address] [address] documented as of this encounter
--- OUTSIDE RECORDS SUMMARY | 2022-02-13 12:10 | XMS_ITS | Encounter Summary ---
:1950 Author Organization [employer] Address [address] [place] [address] Care Team Providers Name Role Phone Nancy Coffey Primary Care Provider Encounter Details Date Type Department Care Team Description 09/18/2013 Orders Only [facility] Claims MD [employer] Contact Bill [address] [place] [address] Mailstop [id number] [phone] (Wo rk) Social History Tobacco Use Types [...] on filedocumented in this encounter Care Teams Complaint Coordinator Relationship Specialty Start Date End Date Nancy Coffey MBBS PCP - General 11/09/12 09/29/21 [address] [address] documented as of this encounter
--- OUTSIDE RECORDS SUMMARY | 2022-02-13 12:10 | XMS_ITS | Encounter Summary ---
:1950 Author Organization [employer] Address [address] [place] [address] Care Team Providers Name Role Phone Nancy Coffey Primary Care Provider Encounter Details Date Type Department Care Team Description 12/13/2013 Notes/Orders [place] [facility] Poonam Moreno Thiamin e deficiency Surgery & Weight RN (Primary Dx ) Center [address] [facility] [address] [place] [address] Social History Tobacco Use Types Packs/Day Years Used Date Smoking Tobacco: Never Alcohol Use Standard Drinks/Week Comments Not Asked 0 (1 standard drink = 0.6 oz pure alcoho l) Sex Assigned at Date Recorded Female 01/13/2021 5:27 PM CDT documented as of this encounter Plan of Treatment Not on filedocumented as of this encounter Visit Diagnoses Diagnosis Thiamine deficiency (HRC) - Primary Other and unspecified manifestations of thiamine deficiency documented in this encounter Care Teams Offset Press Assistant Relationship Specialty Start Date End Date Nancy Coffey MBBS PCP - General 11/09/12 09/29/[address] [address] documented as of this encounter
--- OUTSIDE RECORDS SUMMARY | 2022-02-13 12:11 | XMS_ITS | Encounter Summary ---
:1950 Author Organization [employer] Address [address] [place] [address] Care Team Providers Name Role Phone Terell Malloy MD Primary Care Provider Encounter Details Date Type Department Care Team Description 04/10/2009 Mobile Crane Operator Only CONVERSION CONVERSION Crystal Moreno RN Social History Tobacco Use Types Packs/Day Years Used Date Smoking Tobacco: Never Assessed Sex Assigned at Date Recorded Female 01/13/2021 5:27 PM CDT documented as of this encounter Progress Notes Poonam Moreno RN - 04/10/2009 12:01 AM CST Progress Notes signed by Poonam Moreno RN at 04/10/09 0944 Author: Poonam Moreno RN Service: (none) Author Type: Registered Nurse Filed: 07/19/10 1924 Note Time: 04/10/09 0001 Status: Signed Him Director: Poonam Moreno RN (Registered Nurse) Bariatric Surgery Preoperative Teaching Patient viewed the preoperative teaching video, and verbalized understanding, and also went over Protect Your Skin from Pressure Ulcers pamphlet. Had an opportunity to have all questions answered. Poonam Moreno RN, CBN PPING SHOVEL OILER documented in this encounter Plan of Treatment Not on filedocumented as of this encounter Visit Diagnoses Not on filedocumented in this encounter Care Teams Mortar Man Relationship Specialty Start Date End Date Terell Malloy MD PCP - General 07/01/10 11/08/12 [address] [address] documented as of this encounter
--- OUTSIDE RECORDS SUMMARY | 2022-02-13 12:11 | XMS_ITS | Encounter Summary ---
:1950 Author Organization [employer] Address [address] [place] [address] Care Team Providers Name Role Phone Terell Malloy MD Primary Care Provider Encounter Details Date Type Department Care Team Description 05/01/2010 Office Visit [facility] & Pamela Hicks [facility] [address] [address] [place] [address] [address] [place] [address] [place] [address] [phone] Social History Tobacco Use Types Packs/Day Years Used Date Smoking Tobacco: Never Alcohol Use Standard Drinks/Week Comments Not Asked 0 (1 standard drink = 0.6 oz pure alcoho l) Sex Assigned at Date Recorded Female 01/13/2021 5:27 PM CDT documented as of this encounter Last Filed Vital Signs Vital Sign Reading Time Taken Comments Blood Pressure 107/74 05/01/2010 2:35 PM DOG FOOD SHREDDER OPERATOR Pulse - - Temperature - - Respiratory Rate - - Oxygen Saturation - - Inhaled Oxygen Concentration - - Weight 98.6 kg (217 lb 7.7 oz) 05/01/2010 2:35 PM C: 98 .7kg DOG FOOD SHREDDER OPERATOR Height 165.1 cm (5' 5) 05/01/2010 2:35 PM C: 165.1cm DOG FOOD SHREDDER OPERATOR Body Mass Index 36.19 05/01/2010 2:35 PM DOG FOOD SHREDDER OPERATOR documented in this encounter Progress Notes Pamela Hicks - 05/01/2010 12:01 AM CST Department of Bariatric Surgery Nurse Clinician Follow-Up Post-Op Visit SUBJECTIVE: This 59 year-old female presents for routine post-operative follow up, status post laparoscopic adjustable banded gastroplasty. Date of Surgery: 05/14/2009 Patient has been satisfied with weight loss results to this point. Patient Symptoms: Patient is often hungry. Big meals. Decreasing weight loss. Patient denies taste aversion, pain with eating, sensation of food sticking, frequent vomiting, heartburn, frothing, bloating, constipation, diarrhea. Complains of intermittent Left shoulder pain after her evening meal with heavier foods. She hads been evaluated by her PCP and a chiropractor for the pain. Symptomatic Concerns: Symptoms of band slippage: None present. Symptoms of erosion: None present. Asthma is improved. Depression is improved. GERD resolved - no longer requiring PPI. Hypertension resolved - no longer requiring anithypertensives. Obstructive Sleep Apnea resolved - no longer requiring CPAP. Weight bearing joint pain is improved. Meals per day: 3. Dietary Intake: Food volumes are approximately 1 cup at each meal. Food Intolerances: Bread. Pasta. Rice. Patient is not experiencing dumping syndrome. Snacking: sometimes Fluid intake averages more than 64 oz per day. Skim milk: (# of 8 oz servings/day): 3 Protein intake appears to be adequate. Exercise: Patient is primarily pursuing aerobic exercise less than 30 min per session, Pt recently had bunion surgery. Tobacco use, alcohol use, marital status, employment and support groups have not changed from the previous bariatric visit. OBJECTIVE: Today's Height: 65.0 inches. Preoperative Weight: 261.0 lbs. / 118.6 kg. . BMI: 43.5 kg/meter squared. [place] Weight ([employer]): 134 lbs. / 61 kg. Excess Weight: 127 lbs. / 58 kg. Weight Last Visit: 224.4 lbs. / 102.0 kg. 3 BMI: 37.4 kg/meter squared. Today's Weight: 217.5 lbs. / 98.9 kg. 5 BMI: 36.3 kg/meter squared. Weight Change Since Last Visit: -6.9 lbs. / -3.1 kg. Total Weight Change: -43.5 lbs. / -19.8 kg. % Excess Weight Loss: 34%. Vital Signs: Vital Signs taken today were reviewed on the flowsheet in the Electronic Medical Record. Gen: Patient is in no apparent distress. Respiratory: No distress is noted. Abdomen: Soft and nontender. Wound(s): No incisional hernia seen. Skin: Skin is intact and the abdominal incision(s) is/are well healed. Hair loss is not noted. Neuropsych: Patient is alert and oriented X 3.Exhibits appropriate affect. PROCEDURE NOTE: Band Adjustment Last band adjustment date: 09/05. Port Location: APS. Indications for Band Adjustment: See patient symptoms, above. Symptomatic Concerns: Evidence of self-adjustment of band: No concerns. Ease of access: Straightforward access and fill of port. Patient Position: Supine. Volumes Today: Total Initial Volume Aspirated Today: 6.4 ml. Volume Adjusted Today: +.25 ml. Total Volume at End of Procedure: 6.7 ml. The patient tolerated the procedure well and left the clinic in stable condition. The patient is to call with any concerns. ASSESSMENT: Obesity PLAN: Labs Ordered: Albumin, Calcium, CBC, Chloride, Ferritin, Iron, Iron Binding Capacity, Potassium, Sodium, Total protein, Vitamin B12. Studies Ordered: UGI routine evaluation. Dietary Recommendations: Discussed with the patient appropriate diet after a gastric band placement with emphasis on 3 meals per day, with protein at every meal followed by a good fruit and/or vegetable choice. Meal duration, exercise, snacking avoidance, avoidance of high calorie liquids, and satiety goals were also reviewed. Dietary guidelines instruction sheet provided. Patient is advised to continue supplements. Activity Recommendations: Increase physical activity as tolerated to goal of 30 minutes five times per week. Recommend follow-up appt. with Bariatric PA: 1 mo. *SH~BARIATRIC~BNDCK~ Shorthand Note Completed on: 05/01/2010 2:49 PM FOOD SHREDDER OPERATOR documented in this encounter Plan of Treatment Not on filedocumented as of this encounter Visit Diagnoses Not on filedocumented in this encounter Care Teams Supervisor Mixing Relationship Specialty Start Date End Date Terell Malloy MD PCP - General 07/01/10 11/08/[address] [place] [address] documented as of this encounter
--- OUTSIDE RECORDS SUMMARY | 2022-02-13 12:11 | XMS_ITS | Encounter Summary ---
:1950 Author Organization [employer] Address [address], [place] [address] Care Team Providers Name Role Phone Terell Malloy MD Primary Care Provider Encounter Details Date Type Department Care Team Description 01/18/2009 Office Visit [place] [facility] & Madiha Escobedo MD [facility] [address] [facility] [address] [place], [place] [address] Social History Tobacco Use Types Packs/Day Years Used Date Smoking Tobacco: Never Assessed Sex Assigned at Date Recorded Female 01/13/2021 5:27 PM CDT documented as of this encounter Progress Notes Madiha Escobedo MD - 01/18/2009 12:01 AM CDT Progress Notes signed by Madiha Escobeod MD at 01/18/09 0953 Author: Madiha Escobedo MD Service: (none) Author Type: Physician Filed: 07/19/10 1725 Note Time: 01/18/09 0001 Status: Signed Rubber Factory Worker: Madiha Escobedo MD (Physician) BARIATRIC SURGERY PROGRESS NOTE SUBJECTIVE: 58 year-old female comes in today for review of lab and EKG results from the bariatric consult appointment. The patient has history of morbid obesity and is undergoing evaluation in preparation for bariatric surgery. She denies any new medical problems since the initial appointment. OBJECTIVE: EKG results were reviewed with the patient and explained in detail. Please refer to the initial bariatric consult note of 12/20/08 for the interpretation. Lab results were also reviewed with the patient and explained in detail. Normal lab results include: Calcium Potassium Creatinine Fasting glucose Hemoglobin A1c Vitamin B1 Vitamin B6 Vitamin B12 Vitamin D Serum folate TSH Abnormal lab results include: GFR is low at 57. IMPRESSION: Morbid obesity. The patient remains an appropriate candidate for surgery. No new risk factors for surgery identified. PLAN: The patient was given an opportunity to ask further questions regarding the upcoming surgery and preoperative medication management in addition to questions regarding the lab and EKG results. The patient was encouraged to contact the clinic if she has any further questions during the remainder of the preparation process for surgery. TT: [address]: 6 minutes regarding EKG results, lab results,and details outlined above. *SH~BariatricReview~Shorthand Note Completed on: 01/18/09 9:51 documented in this encounter Plan of Treatment Not on filedocumented as of this encounter Visit Diagnoses Not on filedocumented in this encounter Care Teams Mechanic Sound Technician Relationship Specialty Start Date End Date Terell Malloy MD PCP - General 07/01/10 11/08/12 [address] [facility] [place] [address] documented as of this encounter
--- OUTSIDE RECORDS SUMMARY | 2022-02-13 12:11 | XMS_ITS | Encounter Summary ---
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 Pre-op weight: 255.1 lbs Date of surgery: 05/14/2009 Visit weight: 239.2 lbs Date of visit: 06/11/2009 Difference from pre-op: 15.9 lbs Last visit weight: 255.1 lbs Date of last visit: 04/10/2009 Difference from last visit: 15.9 lbs Assessment: Morbid obesity Hyperlipidemia Hypertension WBJP, Sleep Apnea Patient had the following questions/concerns today: Mindi is doing well. She said she has some burping. She is tolerating foods well. Texture: Patient is tolerating regular textures. Volume At Meals: /2 c 05/30 c Estimated protein needs: 48 grams daily Protein intake does meet estimated needs. Protein sources: milk chicken beef beans yogurt cheese cottage cheese Patient is consuming a variety of protein sources. Fluids: 60-64 ounces daily Vitamin/Minerals: Patient is taking the following vitamin and mineral supplements: multivitamin and mineral daily Eating habits: Patient is eating 3 meals a day. Patient is not including fruits and vegetables with meals on a regular basis. Snacking habits: sugar free pudding or milk, usually has 2 cups/d of milk Exercise: Patient is engaging in physical activity, but frequency is inconsistent: everyother day walking Recommendations/Behavior Changes: Take 1000 IU vitamin D daily. Take 1000mg calcium daily, in addition to three servings of dairy daily. Include fruits and vegetables with meals. Patient set goal for physical activity: Increase walking at work with exercise program Follow up with dietitian in 3 months. Time: 15 minutes *SH~HEALTHED~HEBSFU~Shorthand Note Completed on: 06/11/2009 8:50 AM documented in this encounter Plan of Treatment Not on filedocumented as of this encounter Visit Diagnoses Not on filedocumented in this encounter Care Teams Pump Tester Relationship Specialty Start Date End Date Terell Malloy MD PCP - General 07/01/10 11/08/12 [address] [place] [address] documented as of this encounter
--- OUTSIDE RECORDS SUMMARY | 2022-02-13 12:11 | XMS_ITS | Encounter Summary ---
:1950 Author Organization [employer] Address [address] [place] [address] Care Team Providers Name Role Phone Terell Malloy MD Primary Care Provider Encounter Details Date Type Department Care Team Description 07/10/2009 Office Visit [facility] & Pamela Hicks [facility]C [facility] [address] [place] [address] [address] [place] [address] [place], [place] [address] [phone] Social History Tobacco Use Types Packs/Day Years Used Date Smoking Tobacco: Never Assessed Sex Assigned at Date Recorded Female 01/13/2021 5:27 PM CDT documented as of this encounter Last Filed Vital Signs Vital Sign Reading Time Taken Comments Blood Pressure 116/68 07/10/2009 1:57 PM CDT Pulse - - Temperature - - Respiratory Rate - - Oxygen Saturation - - Inhaled Oxygen Concentration - - Weight 107.4 kg (236 lb 11 oz) 07/10/2009 1:57 PM C: 10 7.4kg CDT Height - - Body Mass Index 39.39 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 Date of Surgery: 05/14/2009 Patient has not been satisfied with weight loss results to this point. Patient Symptoms: Patient is often hungry. Decreasing weight loss. Symptomatic Concerns: Symptoms of band slippage: None present. Symptoms of erosion: None present. Meals per day: 3. Dietary Intake: Food volumes are approximately 3/4 cup at each meal. Dietary Intake: Food volumes are approximately 1 cup at each meal. Dietary Intake: Food volumes are more than 1 cup at each meal. Food Intolerances: No food intolerances. Patient is not experiencing dumping syndrome. Patient is not snacking. Fluid intake averages more than 64 oz per day. Skim milk: (# of 8 oz servings/day): 3 Protein intake appears to be adequate. Exercise: Patient is primarily pursuing aerobic exercise less than 30 min per session, 3 to 5 times per week. Tobacco use, alcohol use, marital status, employment and support groups have not changed from the previous bariatric visit. OBJECTIVE: Today's Height: 65.0 inches. Preoperative Weight: 261.0 lbs. / 118.6 kg. # BMI: 43.5 kg/meter squared. [place] Weight ([employer]): 134 lbs. / 61 kg. Excess Weight: 127 lbs. / 58 kg. Weight Last Visit: 240.6 lbs. / 109.4 kg. ( BMI: 40.1 kg/meter squared. Today's Weight: 236.7 lbs. / 107.6 kg. * BMI: 39.5 kg/meter squared. Weight Change Since Last Visit: -3.9 lbs. / -1.8 kg. Total Weight Change: -24.3 lbs. / -11.0 kg. % Excess Weight Loss: 19%. Vital Signs: Vital Signs taken today were [...] NOTE: Band Adjustment Last band adjustment date: n/a. Port Location: APS. Indications for Band Adjustment: See patient symptoms, above. Symptomatic Concerns: Evidence of self-adjustment of band: No concerns. Ease of access: Straightforward access and fill of port. Patient Position: Supine. Volumes Today: Total Initial Volume Aspirated Today: 3.4 ml. Volume Adjusted Today: +2 ml. Total Volume at End of Procedure: 5.4 ml. The patient tolerated the procedure well and left the clinic in stable condition. The patient is to call with any concerns. ASSESSMENT: Satisfactory progress. Obesity PLAN: Dietary Recommendations: Discussed with the patient appropriate [...] 1 mo. *SH~BARIATRIC~BNDCK~ Shorthand Note Completed on: 07/15/2009 12:28 PM 90 day documented in this encounter Plan of Treatment Not on filedocumented as of this encounter Visit Diagnoses Not on filedocumented in this encounter Care Teams Hog Handler Relationship Specialty Start Date End Date Terell Malloy MD PCP - General 07/01/10 11/08/[address] [facility] [place] [address] documented as of this encounter
--- OUTSIDE RECORDS SUMMARY | 2022-02-13 12:11 | XMS_ITS | Encounter Summary ---
:1950 Author Organization [employer] Address [address] [place] [address] Care Team Providers Name Role Phone Terell Malloy MD Primary Care Provider Encounter Details Date Type Department Care Team Description 12/20/2008 PN Conversion Only MEAWSANGEETA CONVERSI ON Madiha Escobedo MD [address] [place] [address] Social History Tobacco Use Types Packs/Day Years Used Date Smoking Tobacco: Never Assessed Sex Assigned at Date Recorded Female 01/13/2021 5:27 PM CDT documented as of this encounter Plan of Treatment Not on filedocumented as of this encounter Procedures Procedure Name Priority Date/Time Associated Comments Diagnosis VITAMIN B1, BLOOD Routine 12/20/2008 11:20 Result s for this AM CDT procedure are i n the results section. GLUCOSE Routine 12/20/2008 11:20 Results for this AM CDT procedure are i n the results section. THYROID STIMULATING Routine 12/20/2008 11:20 Resu lts for this HORMONE AM CDT procedure are i n the results section. VITAMIN D 25 OH Routine 12/20/2008 11:20 Results for this AM CDT procedure are i n the results section. VITAMIN B6 Routine 12/20/2008 11:20 Results for this AM CDT procedure are i n the results section. CREATININE / GFR Routine 12/20/2008 11:20 Results for this AM CDT procedure are i n the results section. VIT B12 & FOLATE Routine 12/20/2008 11:20 Results for this AM CDT procedure are i n the results section. HGB A1C Routine 12/20/2008 11:20 Results for this AM CDT procedure are i n the results section. POTASSIUM Routine 12/20/2008 11:20 Results for this AM CDT procedure are i n the results section. CALCIUM Routine 12/20/2008 11:20 Results for this AM CDT procedure are i n the results section. documented in this encounter Results VITAMIN B6 (12/20/2008 11:20 AM CDT) athologist Signature Pyridox 30 5 - 50 HP CONVERSION Phosphate ug/L Comment: Performed at [facility] [address] [place] [address] Specimen (Source) Anatomical Collection Method Collection Time Re ceived Time Location / / Volume Laterality 12/20/2008 11:20 AM CDT Madiha Escobedo MD LAB_1 Performing Organization Address City/[facility] Code Phon e Number HP CONVERSION VITAMIN D 25 OH (12/20/2008 11:20 AM CDT) athologist Signature Vitamin D 25 Oh 49 30 - 80 HP CONVERSION ng/mL Comment: TEST INFORMATION: VITAMIN D, 25-HYDROXY This assay accurately quantifies the sum of vitamin D3, 25-hydroxy and vitamin D2, 25-hydroxy. Deficiency: ??Less than 20 ng/mL Insufficiency: ??20-29 ng/mL Optimum Level: ??30-80 ng/mL Possible Toxicity: ??Greater than 80 ng/ mL Performed at [facility] [address] Specimen (Source) Anatomical Collection Method Collection Time Re ceived Time Location / / Volume Laterality 12/20/2008 11:20 AM CDT Madiha Escobedo MD LAB_1 Performing Organization Address City/[facility]/ZIP Code Phon e Number HP CONVERSION VITAMIN B1 (12/20/2008 11:20 AM CDT) athologist Signature Vitamin B1 120 70 - 180 HP CONVERSION nmol/L Comment: TEST INFORMATION: Vitamin B1, Whole Bloo d The concentration of thiamine diphosphat e (TDP), the primary active form of vitamin B1, is me asured in this assay. ??Approximately 90% of vitamin B1 present in whole blood is TDP. ??Thiamine and thiamine mo nophosphate, which comprise the remaining 10%, are not wen ured. Performed at [facility] [address] [place], [place] [address] Specimen (Source) Anatomical Collection Method Collection Time Re ceived Time Location / / Volume Laterality 12/20/2008 11:20 AM CDT Madiha Escobedo MD LAB_1 Performing Organization Address City/[facility]/ZIP Code Phon e Number HP CONVERSION Vit B12 & Folate (12/20/2008 11:20 AM CDT) athologist Signature Vitamin B12 635 211 - 911 HP CONVERSION pg/mL Serum Folate >24.0 >6.1 ng/mL HP CONVERSION Specimen (Source) Anatomical Collection Method Collection Time Re ceived Time Location / / Volume Laterality 12/20/2008 11:20 AM CDT Madiha Escobedo MD LAB_1 Performing Organization Address City/[facility] Code Phon e Number HP CONVERSION THYROID STIMULATING HORMONE (12/20/2008 11:20 AM CDT) athologist Signature Thyroid 2.66 0.20 - HP CONVERSION Stimulating 4.50 Hormone uIU/mL Specimen (Source) Anatomical Collection Method Collection Time Re ceived Time Location / / Volume Laterality 12/20/2008 11:20 AM CDT Madiha Escobedo MD LAB_1 Performing Organization Address City/[facility]/ZIP Code Phon e Number HP CONVERSION Hgb A1c (12/20/2008 11:20 AM CDT) athologist Signature HGB A1C 5.8 <6.0 % HP CONVERSION Specimen (Source) Anatomical Collection Method Collection Time Re ceived Time Location / / Volume Laterality 12/20/2008 11:20 AM CDT Madiha Escobedo MD LAB_1 Performing Organization Address City/State/ZIP Code Phon e Number HP CONVERSION Potassium (12/20/2008 11:20 AM CDT) athologist Signature Potassium 4.0 3.5 - 5.2 HP CONVERSION mEq/L Specimen (Source) Anatomical Collection Method Collection Time Re ceived Time Location / / Volume Laterality 12/20/2008 11:20 AM CDT Madiha Escobedo MD LAB_1 Performing Organization Address City/State/ZIP Code Phon e Number HP CONVERSION GLUCOSE (12/20/2008 11:20 AM CDT) athologist Signature Length Of Fast 12.0 Hours HP CONVERSION Lab Glucose 89 60 - 100 HP CONVERSION mg/dL Specimen (Source) Anatomical Collection Method Collection Time Re ceived Time Location / / Volume Laterality 12/20/2008 11:20 AM CDT Madiha Escobedo MD LAB_1 Performing Organization Address City/[facility] Code Phon e Number HP CONVERSION (ABNORMAL) Creatinine / GFR (12/20/2008 11:20 AM CDT) athologist Signature Creatinine 1.0 0.4 - 1.3 HP CONVERSION Serum mg/dL Est GFR >60 >60 HP CONVERSION Am Comment: -Canadian and Sdo-Xmlcqkr-Ijkamyn n reference range units: mL/min/1.73m2 Normal>60, moderate decrease 30 - 59, se iliana decrease 15 - 29, renal failure <15 mL/min/1.73 m2 NOTE: Choose the eGFR result above appro priate for the race of the patient. Est GFR Non-Afr Am 57 (L) >60 HP CONVERSI ON Specimen (Source) Anatomical Collection Method Collection Time Re ceived Time Location / / Volume Laterality 12/20/2008 11:20 AM CDT Madiha Escobedo MD LAB_1 Performing Organization Address City/[facility]/ZIP Code Phon e Number HP CONVERSION Calcium (12/20/2008 11:20 AM CDT) athologist Signature Calcium 9.7 8.5 - 10.5 HP CONVERSION mg/dL Specimen (Source) Anatomical Collection Method Collection Time Re ceived Time Location / / Volume Laterality 12/20/2008 11:20 AM CDT Madiha Escobedo MD LAB_1 Performing Organization Address City/[facility]/ZIP Code Phon e Number HP CONVERSION documented in this encounter Visit Diagnoses Not on filedocumented in this encounter Care Teams Storeroom Keeper Relationship Specialty Start Date End Date Terell Malloy MD PCP - General 07/01/10 11/08/12 [address] [place] [address] documented as of this encounter
--- OUTSIDE RECORDS SUMMARY | 2022-02-13 12:11 | XMS_ITS | Encounter Summary ---
:1950 Author Organization [employer] Address [address] [place] [address] Care Team Providers Name Role Phone Terell Malloy MD Primary Care Provider Encounter Details Date Type Department Care Team Description 12/20/2008 PN Conversion Only CONV CARDIOLOGY Amanda Capellan MD [address] [place] [address] Social History Tobacco Use Types Packs/Day Years Used Date Smoking Tobacco: Never Assessed Sex Assigned at Date Recorded Female 01/13/2021 5:27 PM CDT documented as of this encounter Plan of Treatment Not on filedocumented as of this encounter Visit Diagnoses Not on filedocumented in this encounter Care Teams Shim Plug Cutter Relationship Specialty Start Date End Date Terell Malloy MD PCP - General 07/01/10 11/08/12 [address] [facility] [place] [id number] documented as of this encounter
--- OUTSIDE RECORDS SUMMARY | 2022-02-13 12:11 | XMS_ITS | Encounter Summary ---
:1950 Author Organization [employer] Address [address] [place] [address] Care Team Providers Name Role Phone Terell Malloy MD Primary Care Provider Encounter Details Date Type Department Care Team Description 10/24/2009 Office Visit [facility] & Pamela Hicks PA-C [facility] [address] [place] [address] [place] [address] [phone] Social History Tobacco Use Types Packs/Day Years Used Date Smoking Tobacco: Never Alcohol Use Standard Drinks/Week Comments Not Asked 0 (1 standard drink = 0.6 oz pure alcoho l) Sex Assigned at Date Recorded Female 01/13/2021 5:27 PM CDT documented as of this encounter Last Filed Vital Signs Vital Sign Reading Time Taken Comments Blood Pressure 100/68 10/24/2009 1:53 PM CDT Pulse - - Temperature - - Respiratory Rate - - Oxygen Saturation - - Inhaled Oxygen Concentration - - Weight 103.1 kg (227 lb 4.7 oz) 10/24/2009 1:53 PM C: 1 03.1kg CDT Height - - Body Mass Index 37.82 04/10/2009 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 Date of Surgery: 05/14/2009 Patient has been satisfied with weight loss results to this point. Patient Symptoms: None. Patient denies taste aversion, pain with eating, frequent vomiting, frothing, bloating, heartburn, constipation, diarrhea. Symptomatic Concerns: Symptoms of band slippage: None present. Symptoms of erosion: None present. Asthma is improved. Depression is improved. GERD resolved - no longer requiring PPI. Hypertension improved - antihypertensive medication dosage has decreased. Obstructive Sleep Apnea resolved - no longer requiring CPAP. Weight bearing joint pain is improved. Meals per day: 3. Dietary Intake: Food volumes are approximately 1 cup at each meal. Food Intolerances: Bread. Pasta. Patient is not experiencing dumping syndrome. Patient is not snacking. Fluid intake averages more than 64 oz per day. Skim milk: (# of 8 oz servings/day): 3 Protein intake appears to be adequate. Exercise: Patient is primarily pursuing aerobic exercise at least 30 min per session, 1 to 3 times per week. Tobacco use, alcohol use, marital status, employment and support groups have not changed from the previous bariatric visit. OBJECTIVE: Today's Height: 65.0 inches. Preoperative Weight: 261.0 lbs. / 118.6 kg. ) BMI: 43.5 kg/meter squared. [place] Weight ([employer]): 134 lbs. / 61 kg. Excess Weight: 127 lbs. / 58 kg. Weight Last Visit: 231.5 lbs. / 105.2 kg. . BMI: 38.6 kg/meter squared. Today's Weight: 227.3 lbs. / 103.3 kg. 0 BMI: 37.9 kg/meter squared. Weight Change Since Last Visit: -4.2 lbs. / -1.9 kg. Total Weight Change: -33.7 lbs. / -15.3 kg. % Excess Weight Loss: 27%. Vital Signs: Vital Signs taken today were reviewed on the flowsheet in the Electronic Medical Record. Gen: Patient is in no apparent distress. Respiratory: No distress is noted. Skin: Skin is intact and the abdominal incision(s) is/are well healed. Hair loss is not noted. Neuropsych: Patient is alert and oriented X 3.Exhibits appropriate affect. ASSESSMENT: Satisfactory progress. Obesity PLAN: Labs Ordered: Albumin, Calcium, CBC, Chloride, Ferritin, Iron, Iron Binding Capacity, Potassium, Sodium, Total protein, Vitamin B12. Dietary Recommendations: Discussed with the patient appropriate [...] 1 mo. *SH~BARIATRIC~BNDCK~ Shorthand Note Completed on: 10/24/2009 2:09 PM documented in this encounter Plan of Treatment Not on filedocumented as of this encounter Visit Diagnoses Not on filedocumented in this encounter Care Teams Nurse School Relationship Specialty Start Date End Date Terell Malloy MD PCP - General 07/01/10 11/08/12 [address] [facility] [place] [address] documented as of this encounter
--- OUTSIDE RECORDS SUMMARY | 2022-02-13 12:11 | XMS_ITS | Encounter Summary ---
:1950 Author Organization [employer] Address [address] [place] [address] Care Team Providers Name Role Phone Terell Malloy MD Primary Care Provider Encounter Details Date Type Department Care Team Description 11/27/2009 Office Visit [facility] & Nichole Sheriff [facility] [address] [facility] [address] [place], [place] [id number] Social History Tobacco Use Types Packs/Day Years Used Date Smoking Tobacco: Never Alcohol Use Standard Drinks/Week Comments Not Asked 0 (1 standard drink = 0.6 oz pure alcoho l) Sex Assigned at Date Recorded Female 01/13/2021 5:27 PM CDT documented as of this encounter Last Filed Vital Signs Vital Sign Reading Time Taken Comments Blood Pressure 106/66 11/27/2009 2:53 PM CDT Pulse - - Temperature - - Respiratory Rate - - Oxygen Saturation - - Inhaled Oxygen Concentration - - Weight 101.8 kg (224 lb 6.2 oz) 11/27/2009 2:53 PM C: 1 01.8kg CDT Height 165.1 cm (5' 5) 11/27/2009 2:53 PM C: 165.1cm CDT Body Mass Index 37.34 11/27/2009 2:53 PM CDT documented in this encounter Progress Notes Nichole Sheriff PA-C - 11/27/2009 12:01 AM CDT Progress Notes signed by Nichole Wright PA-C at 11/27/09 1437 Author: Nichole Wright PA-C Service: (none) Author Type: Physician Machine Room Engineer Filed: 07/20/10 0100 Note Time: 11/27/092020 Status: Signed Nuclear Pharmacist: Nichole Wright PA-C (Physician Machine Room Engineer) Department of Bariatric Surgery Follow-Up Post-Op Visit SUBJECTIVE: This 59 year-old female presents for routine post-operative follow up, status post laparoscopic adjustable banded gastroplasty. Date of Surgery: 05/14/2009 Patient has been satisfied with weight loss results to this point. Patient Symptoms: None. will have issues if eats too fast, Denies taste aversion, sensation of food sticking, vomiting, heartburn, frothing, bloating, constipation, diarrhea Symptomatic Concerns: Symptoms of band slippage: None present. Symptoms of erosion: None present. Asthma is improved. Depression is improved. GERD improved. Hypertension improved - antihypertensive medication dosage has decreased. Obstructive Sleep Apnea improved - still requiring CPAP at a lower flow. Weight bearing joint pain is improved. Meals per day: 3. Dietary Intake: Food volumes are approximately 1 cup at each meal. Food Intolerances: Bread. steak Patient is not snacking. Fluid intake averages more than 64 oz per day. Skim milk: (# of 8 oz servings/day): 3 Protein intake appears to be adequate. less than 30 min per session, 3 to 5 times per week. Tobacco use, alcohol use, marital status, employment and support groups have not changed from the previous bariatric visit. OBJECTIVE: Today's Height: 65.0 inches. Preoperative Weight: 261.0 lbs. / 118.6 kg. & BMI: 43.5 kg/meter squared. [place] Weight ([employer]): 134 lbs. / 61 kg. Excess Weight: 127 lbs. / 58 kg. Weight Last Visit: 227.3 lbs. / 103.3 kg. + BMI: 37.9 kg/meter squared. Today's Weight: 224.4 lbs. / 102.0 kg. - BMI: 37.4 kg/meter squared. Weight Change Since Last Visit: -2.9 lbs. / -1.3 kg. Total Weight Change: -36.6 lbs. / -16.6 kg. % Excess Weight Loss: 29%. Vital Signs: Vital Signs taken today were reviewed on the flowsheet in the Electronic Medical Record. Gen: Patient is in no apparent distress. Respiratory: No distress is noted. Abdomen: Soft and nontender. Neuropsych: Patient is alert and oriented X 3.Exhibits appropriate affect.Patient does not appear depressed or anxious. ASSESSMENT: overweight PLAN: Dietary Recommendations: Discussed with the patient appropriate diet after a gastric band placement with emphasis on 3 meals per day, with protein at every meal followed by a good fruit and/or vegetable choice. Meal duration, exercise, snacking avoidance, avoidance of high calorie liquids, and satiety goals were also reviewed. Dietary guidelines instruction sheet provided. Patient is advised to continue supplements. Return to clinic in 3 months, sooner prn problems or concerns. Follow up with Bariatric PA or speak with Bariatric Nurse on a PRN basis regarding progress and/or need for future adjustments. Follow-up recommendations: community development specialist as needed. *SH~BARIATRIC~BNDCK~ Shorthand Note Completed on: 11/27/2009 2:37 PM documented in this encounter Plan of Treatment Not on filedocumented as of this encounter Visit Diagnoses Not on filedocumented in this encounter Care Teams Calender Roll Operator Relationship Specialty Start Date End Date Terell Malloy MD PCP - General 07/01/10 11/08/12 [address] [place] [address] documented as of this encounter
--- OUTSIDE RECORDS SUMMARY | 2022-02-13 12:11 | XMS_ITS | Encounter Summary ---
:1950 Author Organization [employer] Address [address] [place] [address] Care Team Providers Name Role Phone Terell Malloy MD Primary Care Provider Encounter Details Date Type Department Care Team Description 09/25/2009 Office Visit [facility] & Pamela Hicks PA-C [facility] Center [address] [place] [address] [address] [place] [address] [place], [place] [address] [phone] Social History Tobacco Use Types Packs/Day Years Used Date Smoking Tobacco: Never Assessed Sex Assigned at Date Recorded Female 01/13/2021 5:27 PM CDT documented as of this encounter Last Filed Vital Signs Vital Sign Reading Time Taken Comments Blood Pressure 118/76 09/25/2009 3:58 PM CDT Pulse - - Temperature - - Respiratory Rate - - Oxygen Saturation - - Inhaled Oxygen Concentration - - Weight 105 kg (231 lb 7.7 oz) 09/25/2009 3:58 PM CDT C: 105.0kg Height - - Body Mass Index 38.52 04/10/2009 9:34 AM PHOTONICS ENGINEERING TECHNICIAN documented in this encounter Progress Notes Pamela Hicks - 09/25/2009 12:01 AM CDT Progress Notes signed by Pamela Hicks PA-C at 09/25/09 1411 Author: Pamela Hicks PA-C Service: (none) Author Type: Physician Team Primary Care Physician Filed: 07/19/10 1078 Note Time: 09/25/09 0001 Status: Signed Drafter: Pamela Hicks PA-C (Resource) Department of Bariatric Surgery Nurse Clinician Follow-Up Post-Op Visit SUBJECTIVE: This 58 year-old female presents for routine post-operative follow up, status post laparoscopic adjustable banded gastroplasty. Date of Surgery: 05/14/2009 Patient has not been satisfied with weight loss results to this point. Patient Symptoms: Sensation of food sticking. Patient denies taste aversion, pain with eating, frequent vomiting, frothing, bloating, heartburn, constipation, diarrhea. Symptomatic Concerns: Symptoms of band slippage: None present. Symptoms of erosion: None present. Asthma is improved. Depression is unchanged. GERD improved. Obstructive Sleep Apnea improved - still requiring CPAP at a lower flow. Weight bearing joint pain is improved. Meals per day: 3. Dietary Intake: Food volumes are approximately 1 cup at each meal. Food Intolerances: Bread. Pasta. Rice. Patient is experiencing dumping syndrome with consumption of sweets. Patient is not snacking. Fluid intake averages 48 to 64 oz per day. Skim milk: (# [...] Preoperative Weight: 261.0 lbs. / 118.6 kg. ( BMI: 43.5 kg/meter squared. [place] Weight ([employer]): 134 lbs. / 61 kg. Excess Weight: 127 lbs. / 58 kg. Weight Last Visit: 233.8 lbs. / 106.3 kg. - BMI: 39.0 kg/meter squared. Today's Weight: 231.5 lbs. / 105.2 kg. / BMI: 38.6 kg/meter squared. Weight Change Since Last Visit: -2.3 lbs. / -1.0 kg. Total Weight Change: -29.5 lbs. / -13.4 kg. % Excess Weight Loss: 23%. Vital Signs: Vital Signs taken today were [...] NOTE: Band Adjustment Last band adjustment date: 08.04. Port Location: APS. Indications for Band Adjustment: See patient symptoms, above. Symptomatic Concerns: Evidence of self-adjustment of band: No concerns. Ease of access: Straightforward access and fill of port. Patient Position: Supine. Volumes Today: Total Initial Volume Aspirated Today: 5.9 ml. Volume Adjusted Today: +.5 ml. Total Volume at End of Procedure: 6.4 ml. The patient tolerated the procedure well [...] 1 mo. *SH~BARIATRIC~BNDCK~ Shorthand Note Completed on: 09/25/2009 2:11 PM documented in this encounter Plan of Treatment Not on filedocumented as of this encounter Visit Diagnoses Not on filedocumented in this encounter Care Teams Oil And Gas Specialist Relationship Specialty Start Date End Date Terell Malloy MD PCP - General 07/01/10 11/08/12 [address] [facility] [place] [id number] documented as of this encounter
--- OUTSIDE RECORDS SUMMARY | 2022-02-13 12:11 | XMS_ITS | Encounter Summary ---
:1950 Author Organization [employer] Address [address], [place] [address] Care Team Providers Name Role Phone Terell Malloy MD Primary Care Provider Reason for Visit Reason Comments Other Encounter Details Date Type Department Care Team Description 05/07/2009 [facility] & Kleber Reis RN Other Weight Center [address] [facility] [address] [place], [place] [address] Social History Tobacco Use Types Packs/Day Years Used Date Smoking Tobacco: Never Assessed Sex Assigned at Date Recorded Female 01/13/2021 5:27 PM CDT documented as of this encounter Progress Notes Kleber Reis RN - 05/07/2009 11:08 AM CST Phone Note filed by Kleber Reis RN at 07/18/10 6356 Author: Kleber Reis RN Service: (none) Author Type: Registered Nurse Filed: 07/18/102335 Note Time: 05/07/091107 Status: Signed Silo Man: Kleber Reis RN (Registered Nurse) Courtesy call placed to check on patients readiness for upcoming surgery. Was given the opportunity to have all questions answered. Was encouraged to call if any questions or concerns were to arise. Patient voiced readiness for surgery. Created on 07May2009 11:08am by KLEBER REIS L POURER HELPER documented in this encounter Plan of Treatment Not on filedocumented as of this encounter Visit Diagnoses Not on filedocumented in this encounter Care Teams Manager Treasury Relationship Specialty Start Date End Date Terell Malloy MD PCP - General 07/01/10 11/08/12 [address] [place] [id number] documented as of this encounter
--- OUTSIDE RECORDS SUMMARY | 2022-02-13 12:11 | XMS_ITS | Encounter Summary ---
:1950 Author Organization [employer] Address [address] [place] [address] Care Team Providers Name Role Phone Terell Malloy MD Primary Care Provider Encounter Details Date Type Department Care Team Description 04/10/2009 Office Visit [facility] & Giorgi Leach RD [facility] Center [address] [facility] [address] [place] [address] [address] [place], [place] [address] [phone] Social History Tobacco Use Types Packs/Day Years Used Date Smoking Tobacco: Never Assessed Sex Assigned at Date Recorded Female 01/13/2021 5:27 PM CDT documented as of this encounter Progress Notes Giorgi Mathias RD - 04/10/2009 12:01 AM CST [facility] Nutrition Consult: Bariatric Surgery Referral: Renate Auguste MD Current Weight: 255.1 lbs. / 116.0kg. Current Height: 65 inches Current BMI: 42.5 Kg/meters squared Date of Surgery: No date yet-will get surgery date today with surgeon Vitamin and mineral supplements: Patient does take a multivitamin and mineral daily. Patient does take 1000 IU vitamin D daily. Behavior and dietary changes: Patient has been working on the following changes since meeting with the dietitian: Drinking milk between meals and eating 3 meals/day. Patient Education: Patient was educated on the ten day pre-operative liquid diet. Patient was educated on diet changes necessary after adjustable band gastric bypass surgery. Patient was educated on textures, timing, fluids, portions, protein needs, and micronutrient needs. Answered patient nutrition questions. Assessment: Morbid obesity Hyperlipidemia Hypertension WBJP, Sleep Apnea Patient verbalizes understanding of education. Protein needs are estimated at 48 grams/day. Intervention: Medical nutrition therapy provided. Patient was given the bariatric surgery patient handbook. Patient will follow up with the dietitian one month after surgery. Patient was instructed to call with questions. Thank you for this referral. Time: 60 minutes *SH~HEALTHED~HEBS ~Shorthand Note Completed on: 04/10/2009 8:55 AM PREVENTION LEAD documented in this encounter Plan of Treatment Not on filedocumented as of this encounter Visit Diagnoses Not on filedocumented in this encounter Care Teams Inside Plant Supervisor Relationship Specialty Start Date End Date Terell Malloy MD PCP - General 07/01/10 11/08/12 [address] [facility] [place] [id number] documented as of this encounter
--- OUTSIDE RECORDS SUMMARY | 2022-02-13 12:11 | XMS_ITS | Encounter Summary ---
:1950 Author Organization [employer] Address [address], [place] [address] Care Team Providers Name Role Phone Terell Malloy MD Primary Care Provider Encounter Details Date Type Department Care Team Description 12/20/2008 Molecular Technologist Only [place] [facility] & Maciej Escobedo MD Weight Center [address] [facility] [address] [place], [place] [address] Social History Tobacco Use Types Packs/Day Years Used Date Smoking Tobacco: Never Assessed Sex Assigned at Date Recorded Female 01/13/2021 5:27 PM CDT documented as of this encounter Progress Notes Madiha Escobedo MD - 12/20/2008 12:01 AM CDT Progress Notes signed by Madiha Escobedo MD at 12/20/08 1351 Author: Madiha Escobedo MD Service: (none) Author Type: Physician Filed: 07/19/10 1638 Note Time: 12/20/08 0001 Status: Signed Health Plan Advisor: Madiha Escobedo MD (Physician) Addendum to bariatric consult note: Patient is not currently using her CPAP, having difficulty tolerating it since she started. She agrees to contact her sleep clinic to work on increasing compliance. She does have an oral device, but Harvey sleep scale score is still elevated at 15. Will check on compliance when the patient returns for her follow-up appointment in 2 weeks. documented in this encounter Plan of Treatment Not on filedocumented as of this encounter Visit Diagnoses Not on filedocumented in this encounter Care Teams Retail Pharmacist Relationship Specialty Start Date End Date Terell Malloy MD PCP - General 07/01/10 11/08/12 [address] [place] [address] documented as of this encounter
--- OUTSIDE RECORDS SUMMARY | 2022-02-13 12:11 | XMS_ITS | Encounter Summary ---
:1950 Author Organization [employer] Address [address], [place] [address] Care Team Providers Name Role Phone Unassigned, Provider Primary Care Provider Unavailable Reason for Visit Reason Comments MEDICATION REVIEW AND EDUCATION Encounter Details Date Type Department Care Team Description 01/01/2009 Office Visit [facility] Pharmac y MEDICATION REVIEW AND [address] [place] [address] Social History Tobacco Use Types Packs/Day Years Used Date Smoking Tobacco: Never Assessed Sex Assigned at Date Recorded Female 01/13/2021 5:27 PM CDT documented as of this encounter Last Filed Vital Signs Vital Sign Reading Time Taken Comments Blood Pressure 118/80 01/01/2009 8:44 AM CDT Pulse - - Temperature - - Respiratory Rate - - Oxygen Saturation - - Inhaled Oxygen Concentration - - Weight - - Height - - Body Mass Index - - documented in this encounter Patient Instructions Patient InstructionsAmanda Benson PharmD - 01/01/2009 8:46 AM CDT (1) No clinically relevant drug-drug interactions were identified. (2) Medline plus on NIH.gov has good information (3) Follow up in 3 months Yasir Newman,[facility] [phone] documented in this encounter Progress Notes Amanda Benson PharmD - 01/01/2009 11:19 AM CDT S Mindi Caba was referred to Medication Therapy Management Services by [facility] for medication review/education. She has had a few medication changes since we last met (1) Back on higher dose of bupropion. She had been working her way down to lower dosage of the medication with hopes of getting off the medication with good control of her depression symptoms. She recently increased 2 weeks ago back to 300mg due to increased stress level at work and also due to weather changes affecting her mood. She is starting to feel the effects of the higher dose but not a the level she had previously been. (2) Had eye allergy symptoms which required treatment with Patanol eye drops. She also started back on Zyrtec 10mg daily at bedtime. She is finding that this is able to control her symptoms. Denies anydry eyes, dry mouth, blurry vision, constipation, urinary retention, dizziness or drowsiness, or anyhistory of recent falls. (3) Considering lap band surgery to repair hiatal hernia and for weight loss. Has attended a seminarwith her about the procedure and risks and benefits (4) Protonix was changed to Omeprazole 20mg BID due to formulary issues. Tolerating well. Good control of GERD symptoms Denies any unususal bruising or bleeding, SOB, change in color of urine or stool. Tolerating BP medswell. Denies any dizziness, drowsiness, LU, CP, SOB, edema. Denies muscle aches or pains, yellowing of skin or eyes, nausea vomiting or unusual fatigue. Is having some pain in her wrist which has been diagnosed as osteoarthritis. Was given some sheets on exercises and stretches to do to help strengthen the area and reduce the pain level Asthma management: Current symptoms: non-productive cough. She had cough last week and started using her Flovent twice daily for 1 week and it helped to reduce her symptoms. She is now back to using her rescue inhaler asneeded Precipitating factors: pollens and weather change . Current status: stable Treatment modality employed to this point : inhaled beta-adrenergic agonists and inhaled corticosteroids O ALLERGIES: No Known Allergies PROBLEM LIST: HLD, HTN, Anemia, Depression, Asthma, Hypothyroidism, History Tobacco Use Not on file ASPIRIN USE: Yes BP 118/80 A BP goal: <140/90 Pt is at goal. LDL goal: <130 Pt is at goal. No drug therapy problem at this time P Continue current medication regimen Patient to make appointment with me in 3 month(s) for follow-up. Patient Education: discussed medication dosage, usage, side effects and goal of treatment, diet and exercise Assessed and addressed patient's concerns regarding potential risks(or harm) of medications, the importance of taking prescribed medications, and the cost burden of medications. Updated [facility] med list and reviewed medications including indications with patient. Total time spent with patient 30 minutes. Amanda Benson, Pharm D,[facility] Clinical pharmacist Medication Therapy Management Program documented in this encounter Plan of Treatment Not on filedocumented as of this encounter Visit Diagnoses Diagnosis Polypharmacy - Primary Issue of repeat prescriptions documented in this encounter Care Teams Foundry Finisher Relationship Specialty Start Date End Date Unassigned, Provider PCP - General 03/06/00 06/30/[address] [place] [address] documented as of this encounter
--- OUTSIDE RECORDS SUMMARY | 2022-02-13 12:11 | XMS_ITS | Encounter Summary ---
:1950 Author Organization [employer] Address [address] [place] [address] Care Team Providers Name Role Phone Terell Malloy MD Primary Care Provider Encounter Details Date Type Department Care Team Description 05/14/2009 PN Conversion Only OTHER CONVERSION [address] [place] [address] Social History Tobacco Use Types Packs/Day Years Used Date Smoking Tobacco: Never Assessed Sex Assigned at Date Recorded Female 01/13/2021 5:27 PM CDT documented as of this encounter Plan of Treatment Not on filedocumented as of this encounter Visit Diagnoses Not on filedocumented in this encounter Care Teams Community Cultural Development Officer Relationship Specialty Start Date End Date Terell Malloy MD PCP - General 07/01/10 11/08/[address] [facility] [place] [phone] documented as of this encounter
--- OUTSIDE RECORDS SUMMARY | 2022-02-13 12:11 | XMS_ITS | Encounter Summary ---
:1950 Author Organization [employer] Address [address] [place] [address] Care Team Providers Name Role Phone Terell Malloy MD Primary Care Provider Encounter Details Date Type Department Care Team Description 08/14/2009 Office Visit [facility] & Pamela Hicks PA-C [facility] [address] [place] [address] [address] [place] [address] [place], [place] [id number] [phone] Social History Tobacco Use Types Packs/Day Years Used Date Smoking Tobacco: Never Assessed Sex Assigned at Date Recorded Female 01/13/2021 5:27 PM CDT documented as of this encounter Last Filed Vital Signs Vital Sign Reading Time Taken Comments Blood Pressure 144/80 08/14/2009 2:23 PM CDT Pulse - - Temperature - - Respiratory Rate - - Oxygen Saturation - - Inhaled Oxygen Concentration - - Weight 106 kg (233 lb 12.4 oz) 08/14/2009 2:23 PM C: 10 6.1kg CDT Height - - Body Mass Index 38.9 04/10/2009 9:34 AM MEDICAL OR SURGICAL INSTRUMENT MAKER documented in this encounter Progress Notes Pamela Hicks - 08/14/2009 12:01 AM CDT Progress Notes signed by Pamela Hicks PA-C at 08/14/09 8314 Author: Pamela Hicks PA-C Service: (none) Author Type: Physician Repairer And Checker Filed: 07/19/10 2232 Note Time: 08/14/092020 Status: Signed Claim Adjuster: Pamela Hicks PA-C (Resource) Department of Bariatric Surgery Nurse Clinician Follow-Up Post-Op Visit SUBJECTIVE: This 58 year-old female presents for routine post-operative follow up, status post laparoscopic adjustable banded gastroplasty. Date of Surgery: 05/14/2009 Patient has been satisfied with weight loss results to this point. Patient Symptoms: Patient is often hungry. Hunger within 5 hours of eating. Decreasing weight loss. Patient denies taste aversion, pain with eating, sensation of food sticking, frequent vomiting, heartburn, frothing, bloating, constipation, diarrhea. Symptomatic Concerns: Symptoms of band slippage: None present. Symptoms of erosion: None present. Asthma is improved. Depression is improved. GERD improved. Hypertension improved - antihypertensive medication dosage has decreased. Obstructive Sleep Apnea improved - still requiring CPAP at a lower flow. Weight bearing joint pain is unchanged. Meals per day: 3. Dietary Intake: Food volumes are approximately 1/2 cup at each meal. Dietary Intake: Food volumes are approximately 3/4 [...] exercise at least 30 min per session, 3 to 5 times per week. Tobacco use, alcohol use, marital status, employment and support groups have not changed from the previous bariatric visit. OBJECTIVE: Today's Height: 65.0 inches. Preoperative Weight: 261.0 lbs. / 118.6 kg. , BMI: 43.5 kg/meter squared. [place] Weight ([employer]): 134 lbs. / 61 kg. Excess Weight: 127 lbs. / 58 kg. Weight Last Visit: 236.7 lbs. / 107.6 kg. 1 BMI: 39.5 kg/meter squared. Today's Weight: 233.8 lbs. / 106.3 kg. 3 BMI: 39.0 kg/meter squared. Weight Change Since Last Visit: -2.9 lbs. / -1.3 kg. Total Weight Change: -27.2 lbs. / -12.4 kg. % Excess Weight Loss: 21%. Vital Signs: Vital Signs taken today were [...] NOTE: Band Adjustment Last band adjustment date: 1 mo. Port Location: APS. Indications for Band Adjustment: See patient symptoms, above. Symptomatic Concerns: Evidence of self-adjustment of band: No concerns. Ease of access: Straightforward access and fill of port. Patient Position: Supine. Volumes Today: Total Initial Volume Aspirated Today: 5.4 ml. Volume Adjusted Today: +.5 ml. Total Volume at End of Procedure: 5.9 ml. The patient tolerated the procedure well [...] 1 mo. *SH~BARIATRIC~BNDCK~ Shorthand Note Completed on: 08/14/2009 2:34 PM documented in this encounter Plan of Treatment Not on filedocumented as of this encounter Visit Diagnoses Not on filedocumented in this encounter Care Teams Identification Clerk Relationship Specialty Start Date End Date Terell Malloy MD PCP - General 07/01/10 11/08/12 [address] [place] [id number] documented as of this encounter
--- OUTSIDE RECORDS SUMMARY | 2022-02-13 12:11 | XMS_ITS | Encounter Summary ---
:1950 Author Organization [employer] Address [address], [place] [address] Care Team Providers Name Role Phone Unassigned, Provider Primary Care Provider Unavailable Reason for Visit Reason Comments MEDICATION REVIEW AND EDUCATION Encounter Details Date Type Department Care Team Description 04/02/2009 Office Visit [facility] y MEDICATION REVIEW AND [address] [place] [address] Social History Tobacco Use Types Packs/Day Years Used Date Smoking Tobacco: Never Assessed Sex Assigned at Date Recorded Female 01/13/2021 5:27 PM CDT documented as of this encounter Last Filed Vital Signs Vital Sign Reading Time Taken Comments Blood Pressure 118/74 04/02/2009 12:11 PM FORESTRY BIOLOGY SPECIALIST Pulse - - Temperature - - Respiratory Rate - - Oxygen Saturation - - Inhaled Oxygen Concentration - - Weight - - Height - - Body Mass Index - - documented in this encounter Patient Instructions Patient InstructionsAmanda Benson PharmD - 04/02/2009 12:11 PM CST No changes recommended at this time Follow up- I will call once the schedule is available. 3 month follow up. Amanda Benson Pharm D,[facility] [phone] STRY BIOLOGY SPECIALIST documented in this encounter Progress Notes Amanda Benson PharmD - 04/02/2009 12:10 PM CST S Mindiarvin Caba was referred to Medication Therapy Management Services by pharmacist for medication review/education. Patient reports compliance with medications. Patient denies side effects of medications. Denies any dry eyes, dry mouth, blurry vision, constipation, urinary retention, dizziness or drowsiness, or any history of recent falls. Does have some dry nose which can lead to a rare bloodynose. Denies muscle aches or pains, yellowing of skin or eyes, nausea vomiting or unusual fatigue. Tolerating BP meds well. Denies any dizziness, drowsiness, LU, CP, SOB, edema. She is in the process of qualifying for lap band surgury. Working through [facility] with billing services manager and surgeon. Hopes to have done in the next few months. Hopes this will help in terms of her BP, weight loss, etc. Allergy Symptoms: Using zyrtec daily. Controlling symptoms. Used in the past and stopped thinking she did not use it. Taking on regular basis. Has had a couple of nose bleds No other medication changes. Doing better now that she is back on the higher dose of her Wellbutrin 300mg. O ALLERGIES: No Known Allergies PROBLEM LIST: HLD, HTN, Anemia, Depression, Asthma, Hypothyroidism, ASPIRIN USE: Yes Last 2 Encounter BP Readings: Date BP 04/02/2009 118/74 01/01/2009 118/80 A BP goal: <130/80 Pt is at goal. No drug therapy problem at this time P Continue current medication regimen Patient to make appointment with me in 3 month(s) for follow-up. Patient Education: discussed medication dosage, usage, side effects and goal of treatment, diet, exercise and weight loss Assessed and addressed patient's concerns regarding potential risks(or harm) of medications, the importance of taking prescribed medications, and the cost burden of medications. Updated [facility] med list and reviewed medications including indications with patient. Total time spent with patient 25minutes. Yasir Newman,BCPS Clinical pharmacist Medication Therapy Management Program STRY BIOLOGY SPECIALIST documented in this encounter Plan of Treatment Not on filedocumented as of this encounter Visit Diagnoses Diagnosis Polypharmacy - Primary Issue of repeat prescriptions documented in this encounter Care Teams Oven Worker Relationship Specialty Start Date End Date Unassigned, Provider PCP - General 03/06/00 06/30/10 [address] [place] [address] documented as of this encounter
--- OUTSIDE RECORDS SUMMARY | 2022-02-13 12:11 | XMS_ITS | Encounter Summary ---
:1950 Author Organization [employer] Address [address] [place] [address] Care Team Providers Name Role Phone Terell Malloy MD Primary Care Provider Encounter Details Date Type Department Care Team Description 01/18/2009 Therapy CONV PSYCHIATRIC PT Festus Barrett, PT [address] [facility] [phone] (Wo rk) Social History Tobacco Use Types Packs/Day Years Used Date Smoking Tobacco: Never Assessed Sex Assigned at Date Recorded Female 01/13/2021 5:27 PM CDT documented as of this encounter Progress Notes Festus Barrett PT - 01/18/2009 12:01 AM CDT Progress Notes signed by Festus Barrett PT at 01/18/09 1206 Author: Festus Barrett PT Service: (none) Author Type: Physical Therapist Filed: 07/19/10 8514 Note Time: 01/18/09 0001 Status: Signed Digital Sales Manager: Festus Barrett PT (Physical Therapist) [facility] Physical Therapy Bariatric Evaluation Referring diagnosis: Morbid obesity. Referring Physician: Madiha Escobedo MD Orders: Evaluate and treat. Date of Onset: 12/20/2008 SUBJECTIVE Pain: Intermittent pain. Pain Location: Bilateral knees. Pain Intensity: 0/10 at rest. 5/10 at worst. Aggravated by: Prolonged standing. Going from a kneeling to a standing position. Relieved by: Moving. Past Medical History: Reviewed in Electronic Medical Records. Pertinent to therapy include: Arthritis - back, knees, and hands. Asthma. Depression. GERD. HTN. Weight bearing joint pain - bilateral knees. Sleep apnea. Lumbar spine fusion 7 years ago. Left knee arthroscopy 5 years ago. Medications: Reviewed in Electronic Medical Records. Drug Allergies: Reviewed in Electronic Medical Records. Falls Risk: No. Dwelling Type: Multi level home (4 levels). Steps Limitations: Dyspnea. Pt reports she gets winded with 1 flight of stairs, and she cannot do 2 flights without stopping to rest. Pain. Household/Yard Limitations: Fatigue. Pain. Pt also cannot do some of the housework after her back surgery, and her spouse helps with things like vacuuming. Community Mobility/Ambulation Limitations: Fatigue. 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 Pain in the knees with filing in the low drawers. Hobbies/Leisure: Flower gardening/weeding - this is limited by pain and fatigue. Crocheting. Making cards. Reading. Playing with grandkids - difficult to get up/down on the floor to play with them. Current Exercise Programs: Strengthening exercise - none. Flexibility exercise - none. Aerobic/endurance exercises: Walking over lunch at work 15 minutes, 3x/week. Perception of Exercise: It has never been fun. Enjoy walking if outdoors or with a friend. Past Exercise History: Took an exercise class at work a couple of years ago. Exercise Equipment Accessible: Treadmill. Exercise ball. Hand weights. Resistance bands. Patient's Treatment Goal: Self management through home exercise. Increase activity level to complete light 2nd pressman. Keep pace with grandchildren. Increase endurance to ambulate community distance. Meet work demands without difficulty. Resume leisure activities. OBJECTIVE General: Pleasant and cooperative. Motivated and willing to prioritize exercise. Pain intensity after 6 minute walk: 0/10. Current Perceived Fitness Rating: Below average. Desired Fitness Rating: Above average. Gross ROM: Within functional limits. Gross Muscle Strength: Within functional limits. Aerobic Capacity/Endurance 6 minute walk: 1340 feet, 2.5 mph. Heart rate (Pre-Post bpm): 66 - 115 bpm O2 saturation (Pre-Post): 96% at rest, but dropped to 86% in less than 2 minutes into the walk. Coached pt on pursed lip breathing, and she was able to bring O2 sats up to 90% quickly and 95% for the last few minutes of the 6 minute walk. Blood pressure (Pre-Post) : 118/84 - 132/88 Perceived breathlessness after the walk: Fairly easy to breathe (11). Perceived exertion (Amee scale) after the walk: Not too bad (12). When O2 sats dropped to 86% briefly, pt also rated the Perceived Breathlessness (PB) as 14/20. When O2 sats came back up and pt was at the end of the walk, she rated the PB as 11. ASSESSMENT Therapist Impression: Patient is a good candidate, but team should be aware of potential problems - Watch O2 saturation or pt may need reminding to do pursed lip breathing when doing activities to avoid SOB. Treatment Diagnosis: Morbid obesity (278.01) PT Practice Pattern: Impaired aerobic capacity/endurance associated with deconditioning. (6B) Barriers to Goal Achievement: None apparent. Rehab Prognosis: Good. PLAN Functional Limitations: No personalized home program and exercise strategies. Difficulty with light 2nd pressman. Difficulty with keeping pace with grandchildren. Difficulty with work activities. Difficulty with leisure activities. Functional Outcomes: -Demonstrate understanding of personalized home exercise program. -Upper extremity toning exercise daily. Progress to PRE 3-4 x week. -LE stretches: hip flexor, hamstring, quadriceps, gastroc-soleus. -Endurance exercise - Walk. Current endurance program level - Walk 30 minutes, 3x/week. Progress to - Walk 30 minutes, 5x/week. Frequency/Duration: One time only. Consent: Risks, benefits and alternatives to treatment have been explained. Patient and/or family in agreement with care plan. TREATMENT TODAY: -Evaluation. -Therapeutic exercise: (15 minutes). Six minute walk. Upper extremity toning exercises. Lower extremity stretches. -ADL/Self Management: (15 minutes). Education: Self assessment tools including heart rate guidelines. Recommended exercise heartrate guideline is 60-80% of estimated maximum heart rate. Activity guideline. Home Exercise Program: Lower extremity stretches (quads, plantarflexors, hamstrings). Upper extremity toning exercises. Graded endurance program. Handouts Provided for all education and Home Exercise program discussed above. DISCHARGE SUMMARY Demonstrates understanding of home exercise program, activity guidelines and self assessment skills. intermediate accountant goals expected to be met through home exercise program. Procedures: Physical Therapy Evaluation (CPT 19924). Therapeutic Exercise (CPT 50946) 15 minutes. ADL/Self management (CPT 29039) 15 minutes TOTAL TREATMENT TIME: 60 minutes. Electronically signed by: Festus Barrett, VICTORIA, [id number] , 01/18/2009 *SH~REHAB~PTBAR ~ Shorthand Note completed on: 01/18/2009 11:57 AM documented in this encounter Plan of Treatment Not on filedocumented as of this encounter Visit Diagnoses Not on filedocumented in this encounter Care Teams Clinical Leader Relationship Specialty Start Date End Date Terell Malloy MD PCP - General 07/01/10 11/08/[address] [facility] [place] [address] documented as of this encounter
--- OUTSIDE RECORDS SUMMARY | 2022-02-13 12:11 | XMS_ITS | Encounter Summary ---
:1950 Author Organization [employer] Address [address] [place] [address] Care Team Providers Name Role Phone Terell Malloy MD Primary Care Provider Encounter Details Date Type Department Care Team Description 12/20/2008 Office Visit [facility] & Tony Auguste MD [facility] [address] [place] [address] [address] [place] [address] [place], [place] [address] [phone] Social History Tobacco Use Types Packs/Day Years Used Date Smoking Tobacco: Never Assessed Sex Assigned at Date Recorded Female 01/13/2021 5:27 PM CDT documented as of this encounter Progress Notes Poonam Moreno RN - 12/20/2008 12:01 AM CDT Progress Notes signed by Poonam Moreno RN at 12/20/08 0939 Author: Poonam Moreno RN Service: (none) Author Type: Registered Nurse Filed: 07/19/10 1638 Note Time: 12/20/08 0001 Status: Signed Roofing Layer: Poonam Moreno RN (Registered Nurse) Department of 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 Past Medical History: Morbid Obesity. The onset of obesity occurred at approximately 42 years of age with gradual escalation into adulthood. Morbid obesity has been present for at least 15 years. A detailed explanation of obesity surgery including risks, benefits and uncertainties were received at the previous group information session. A copy of Making the Decision to Have Bariatric Surgery for ongoing review and reference was also provided. The opportunity was given to have all questions answered at that session. Other medical problems: Asthma. Depression. GERD. Hypertension. Hyperlipidemia. Hypothyroidism. Weight-bearing joint pain. Sleep apnea, does not currently use CPAP. Stress urinary incontinence. anemia, back pain, frequent bronchitis. Other Surgery: . Cholecystectomy. left oopherectomy. Medications: Reviewed and updated today on the Health Profile in the Electronic Medical Record. Adverse Drug Reactions: Reviewed and updated today on the Health Profile in the Electronic Medical Record. OBJECTIVE: Today's Height: 65 inches. Today's Weight: 261 lbs / 118.6 kg. BMI: 43.5 kg/meter squared. [place] Weight ([employer]): 134 lbs. / 61 kg. Excess Weight: 127 lbs. / 58 kg. Blood Pressure: 128/70 (with large cuff). ASSESSMENT: Appears to be a good candidate for bariatric surgery based on BMI and the desire to lose weight and reduce the risk for obesity-related health problems. PLAN: An understanding of bariatric surgery, including its risks and benefits were verbalized by the patient. An understanding of the necessity for commitment to life-long follow-up, lifestyle changes and dietary modification required for long-term success was also verbalized. The patient was counseled regarding the importance of consuming the protein portion of the meal first, drinking 48-64 oz. of calorie-free liquids daily, engaging in physical activity for 30 minutes daily five times a week and taking a daily multivitamin with minerals. Psychological testing and an appointment for the Bariatric Surgery Behavioral Services Assessment with the physician, psychologist, dietitian and physical therapist will be scheduled. When all reports are received and reviewed, we will seek prior authorization from the patient's insurance company ([id number]). When authorization is obtained, the patient will schedule consultations with both the surgeon and the dietitian. Investigation of support groups and continued learning were encouraged. The patient was given the opportunity today to have all questions answered. Baseline Labs Ordered: To be ordered by Dr. Wiita today.. Patient is asked to follow up with primary care provider for further evaluation and treatment of the following medical comorbidities: Getting better compliance with her CPAP machine.. *SH~BARIATRIC~RNINT~ Shorthand Note Completed on: 12/20/2008 9:39 AM documented in this encounter Plan of Treatment Not on filedocumented as of this encounter Visit Diagnoses Not on filedocumented in this encounter Care Teams Vegetable Ii Farmworker Relationship Specialty Start Date End Date Terell Malloy MD PCP - General 07/01/10 11/08/12 [address] [place] [address] documented as of this encounter
--- OUTSIDE RECORDS SUMMARY | 2022-02-13 12:11 | XMS_ITS | Encounter Summary ---
:1950 Author Organization [employer] Address [address] [place] [address] Care Team Providers Name Role Phone Terell Malloy MD Primary Care Provider Encounter Details Date Type Department Care Team Description 05/09/2010 PN Conversion Only JOJOWSANGEETA CONVERSI ON Pamela Hicks, [address] [facility] [place] [address] [address] [address] Social History Tobacco Use Types Packs/Day Years Used Date Smoking Tobacco: Never Alcohol Use Standard Drinks/Week Comments Not Asked 0 (1 standard drink = 0.6 oz pure alcoho l) Sex Assigned at Date Recorded Female 01/13/2021 5:27 PM CDT documented as of this encounter Plan of Treatment Not on filedocumented as of this encounter Procedures Procedure Name Priority Date/Time Associated Comments Diagnosis N/O LAB FOLIC ACID Routine 05/09/2010 9:37 AM Res ults for this (RBC+FOLATE) EDGER TAILER procedure are i n the results section. IRON BINDING CAPACITY Routine 05/09/2010 9:37 AM Results for this (INCL IRON) EDGER TAILER procedure are i n the results section. VITAMIN B1, BLOOD Routine 05/09/2010 9:37 AM Resu lts for this EDGER TAILER procedure are i n the results section. COPPER, SERUM Routine 05/09/2010 9:37 AM Results for this EDGER TAILER procedure are i n the results section. GLUCOSE Routine 05/09/2010 9:37 AM Results f or this EDGER TAILER procedure are i n the results section. VITAMIN B6 Routine 05/09/2010 9:37 AM Results f or this EDGER TAILER procedure are i n the results section. LIPID PANEL AND Routine 05/09/2010 9:37 AM Result s for this DIRECT LDL(IF NEEDED) EDGER TAILER proced ure are in the results section. VITAMIN D 25-HYDROXY, Routine 05/09/2010 9:37 AM Results for this TOTAL EDGER TAILER procedure are i n the results section. INTACT PTH Routine 05/09/2010 9:37 AM Results f or this EDGER TAILER procedure are i n the results section. CREATININE / GFR Routine 05/09/2010 9:37 AM Resul ts for this EDGER TAILER procedure are i n the results section. PREALBUMIN Routine 05/09/2010 9:37 AM Results f or this EDGER TAILER procedure are i n the results section. COMPLETE BLOOD Routine 05/09/2010 9:37 AM Results for this COUNT-NO DIFF EDGER TAILER procedure are in the results section. ELECTROLYTE PANEL Routine 05/09/2010 9:37 AM Resu lts for this EDGER TAILER procedure are i n the results section. VIT B12 & FOLATE Routine 05/09/2010 9:37 AM Resul ts for this EDGER TAILER procedure are i n the results section. FERRITIN Routine 05/09/2010 9:37 AM Results f or this EDGER TAILER procedure are i n the results section. HGB A1C Routine 05/09/2010 9:37 AM Results f or this EDGER TAILER procedure are i n the results section. PROTEIN, TOTAL Routine 05/09/2010 9:37 AM Results for this (SERUM) EDGER TAILER procedure are i n the results section. CALCIUM Routine 05/09/2010 9:37 AM Results f or this EDGER TAILER procedure are i n the results section. ALBUMIN Routine 05/09/2010 9:37 AM Results f or this EDGER TAILER procedure are i n the results section. documented in this encounter Results Protein, Total (Serum) (05/09/2010 9:37 AM EDGER TAILER) P athologist Signature Protein Total, 7.5 5.7 - 8.3 HP CONVERSION Serum g/dL Specimen (Source) Anatomical Collection Method Collection Time Re ceived Time Location / / Volume Laterality 05/09/2010 9:37 AM EDGER TAILER Pamela Hicks PA-C LAB_1 Performing Organization Address City/State/ZIP Code Phon e Number HP CONVERSION Vitamin D 25-Hydroxy, Total (05/09/2010 9:37 AM EDGER TAILER) athologist Signature Vitamin D 25 Oh 57 20 - 80 HP CONVERSION ng/mL Comment: Deficiency = <20 Adequate ??= 20-29 Preferred = 30-50 Uncertain safety = 51-80 High = >80 Specimen (Source) Anatomical Collection Method Collection Time Re ceived Time Location / / Volume Laterality 05/09/2010 9:37 AM EDGER TAILER Pamela Hicks PA-C LAB_1 Performing Organization Address City/[facility] Code Phon e Number HP CONVERSION VITAMIN B6 (05/09/2010 9:37 AM EDGER TAILER) athologist Signature Pyridox 15 5 - 50 HP CONVERSION Phosphate mcg/L Comment: Performed at [facility] [employer] [address] [place] [address] Specimen (Source) Anatomical Collection Method Collection Time Re ceived Time Location / / Volume Laterality 05/09/2010 9:37 AM EDGER TAILER Pamela Hicks PA-C LAB_1 Performing Organization Address [facility] Code Phon e Number HP CONVERSION VITAMIN B1 (05/09/2010 9:37 AM EDGER TAILER) athologist Signature Vitamin B1 106 70 - 180 HP CONVERSION nmol/L Comment: TEST INFORMATION: Vitamin B1, Whole Bloo d The concentration of thiamine diphosphat e (TDP), the primary active form of vitamin B1, is me asured in this assay. Approximately 90% of vitamin B1 p resent in whole blood is TDP. Thiamine and thiamine mono phosphate, which comprise the remaining 10%, are not wen ured. Performed at [facility] [employer]. [address] [place] [address] 8 Specimen (Source) Anatomical Collection Method Collection Time Re ceived Time Location / / Volume Laterality 05/09/2010 9:37 AM EDGER TAILER Pamela Hicks PA-C LAB_1 Performing Organization Address City/[facility] Code Phon e Number HP CONVERSION Intact PTH (05/09/2010 9:37 AM EDGER TAILER) athologist Signature PTH 52 10 - 100 HP CONVERSION pg/mL Specimen (Source) Anatomical Collection Method Collection Time Re ceived Time Location / / Volume Laterality 05/09/2010 9:37 AM EDGER TAILER Pamela Hicks PA-C LAB_1 Performing Organization Address City/State/ZIP Code Phon e Number HP CONVERSION N/O LAB FOLIC ACID (RBC+FOLATE) (05/09/2010 9:37 AM EDGER TAILER) athologist Signature Red Cell Folate 587 280 - 791 HP CONVERSION ng/mL Specimen (Source) Anatomical Collection Method Collection Time Re ceived Time Location / / Volume Laterality 05/09/2010 9:37 AM EDGER TAILER Pamela Hicks PA-C LAB_1 Performing Organization Address City/State/ZIP Code Phon e Number HP CONVERSION Vit B12 & Folate (05/09/2010 9:37 AM EDGER TAILER) athologist Signature Vitamin B12 753 211 - 911 HP CONVERSION pg/dL Serum Folate 20.1 >5.9 ng/mL HP CONVERSION Specimen (Source) Anatomical Collection Method Collection Time Re ceived Time Location / / Volume Laterality 05/09/2010 9:37 AM EDGER TAILER Pamela Hicks PA-C LAB_1 Performing Organization Address City/[facility]/ZIP Code Phon e Number HP CONVERSION IRON BINDING CAPACITY (INCL IRON) (05/09/2010 9:37 AM EDGER TAILER) athologist Signature Iron, Serum 88 50 - 165 HP CONVERSION ug/dL Iron Binding 348 250 - 450 HP CONVERSION Capacity ug/dL Iron Saturation 25 20 - 55 % HP CONVERSION Specimen (Source) Anatomical Collection Method Collection Time Re ceived Time Location / / Volume Laterality 05/09/2010 9:37 AM EDGER TAILER Pamela MARTINEZ-C LAB_1 Performing Organization Address City/State/ZIP Code Phon e Number HP CONVERSION Hgb A1c (05/09/2010 9:37 AM EDGER TAILER) athologist Signature HGB A1C 5.6 0.0 - 6.0 % HP CONVERSION Specimen (Source) Anatomical Collection Method Collection Time Re ceived Time Location / / Volume Laterality 05/09/2010 9:37 AM EDGER TAILER Pamela Hicks PA-C LAB_1 Performing Organization Address City/State/ZIP Code Phon e Number HP CONVERSION Ferritin (05/09/2010 9:37 AM EDGER TAILER) athologist Signature Ferritin Serum 39 10 - 291 HP CONVERSION ng/mL Specimen (Source) Anatomical Collection Method Collection Time Re ceived Time Location / / Volume Laterality 05/09/2010 9:37 AM EDGER TAILER Pamela Sterlingpati PA-C LAB_1 Performing Organization Address City/State/ZIP Code Phon e Number HP CONVERSION Lipid Panel and Direct LDL(If Needed) (05/09/2010 9:37 AM EDGER TAILER) [facility] gist Method Time Signature Cholesterol 160 0 - 200 HP CONVERSION mg/dL Triglycerides 83 0 - 149 HP CONVERSION mg/dL HDL Cholesterol 56 >39 mg/dL HP CONVERSION Cholesterol/HDL 2.9 No normal HP CONVERSION Ratio Screen range LDL Calculated 87 19 - 130 HP CONVERSION mg/dL Length Of Fast 12.0 No normal HP CONVERSION range Specimen (Source) Anatomical Collection Method Collection Time Re ceived Time Location / / Volume Laterality 05/09/2010 9:37 AM EDGER TAILER Pamela Sterlingpati PA-C LAB_1 Performing Organization Address City/State/ZIP Code Phon e Number HP CONVERSION Electrolyte Panel (05/09/2010 9:37 AM EDGER TAILER) P athologist Signature Sodium 141 137 - 147 HP CONVERSION mEq/L Potassium 4.4 3.5 - 5.2 HP CONVERSION mEq/L Chloride 103 98 - 110 HP CONVERSION mEq/L Bicarbonate 33 23 - 33 HP CONVERSION mmol/L Specimen (Source) Anatomical Collection Method Collection Time Re ceived Time Location / / Volume Laterality 05/09/2010 9:37 AM EDGER TAILER Pamela Sterlingpati PA-C LAB_1 Performing Organization Address City/State/ZIP Code Phon e Number HP CONVERSION GLUCOSE (05/09/2010 9:37 AM EDGER TAILER) athologist Signature Lab Glucose 84 60 - 100 HP CONVERSION mg/dL Specimen (Source) Anatomical Collection Method Collection Time Re ceived Time Location / / Volume Laterality 05/09/2010 9:37 AM EDGER TAILER Pamela Lavelle Hicks PA-C LAB_1 Performing Organization Address City/State/ZIP Code Phon e Number HP CONVERSION (ABNORMAL) Creatinine / GFR (05/09/2010 9:37 AM EDGER TAILER) athologist Signature Creatinine 1.0 0.4 - 1.3 HP CONVERSION Serum mg/dL Est GFR >60 >60 HP CONVERSION Am mL/min/1.7 Est GFR Non-Afr 58 (L) >60 HP CONVERSION Am mL/min/1.7 Comment: Normal>60, moderate decrease 30 - 59, se iliana decrease 15 - 29, renal failure <15 mL/min/1.73 m2 NOTE: ??Choose the eGFR result above ren ropriate for the race of the patient. Specimen (Source) Anatomical Collection Method Collection Time Re ceived Time Location / / Volume Laterality 05/09/2010 9:37 AM EDGER TAILER Pamela MARTINEZC LAB_1 Performing Organization Address City/[facility] Phon e Number HP CONVERSION COPPER, SERUM (05/09/2010 9:37 AM EDGER TAILER) athologist Signature Copper, Serum 132 80 - 155 HP CONVERSION ug/dL Comment: TEST INFORMATION: Copper, Serum Serum copper may be elevated with infect ion, inflammation, stress, copper supplementation, oral con traceptives, and . Concentrations are 2-3 times normal in the third trimester of . Copper may be lo wered with corticosteroids, zinc, malnutrition and malabsorption. Performed at [facility]. [address] [place] [address] 8 Specimen (Source) Anatomical Collection Method Collection Time Re ceived Time Location / / Volume Laterality 05/09/2010 9:37 AM EDGER TAILER Pamela MARTINEZC LAB_1 Performing Organization Address City/[facility]/ZIP Code Phon e Number HP CONVERSION Calcium (05/09/2010 9:37 AM EDGER TAILER) athologist Signature Calcium 9.9 8.5 - 10.5 HP CONVERSION mg/dL Specimen (Source) Anatomical Collection Method Collection Time Re ceived Time Location / / Volume Laterality 05/09/2010 9:37 AM EDGER TAILER Pamela MARTINEZC LAB_1 Performing Organization Address City/[facility]/ZIP Code Phon e Number HP CONVERSION Prealbumin (05/09/2010 9:37 AM EDGER TAILER) athologist Signature Prealbumin 26.1 20.0 - 40.0 HP CONVERSION mg/dL Specimen (Source) Anatomical Collection Method Collection Time Re ceived Time Location / / Volume Laterality 05/09/2010 9:37 AM EDGER TAILER Pamela Hicks MICHELLE-C LAB_1 Performing Organization Address City/[facility] Phon e Number HP CONVERSION Albumin (05/09/2010 9:37 AM EDGER TAILER) athologist Signature Albumin 4.6 3.4 - 5.0 HP CONVERSION g/dL Specimen (Source) Anatomical Collection Method Collection Time Re ceived Time Location / / Volume Laterality 05/09/2010 9:37 AM EDGER TAILER Pamela Hicks MICHELLE-C LAB_1 Performing Organization Address City/[facility] Phon e Number HP CONVERSION Hemogram/Plts (05/09/2010 9:37 AM EDGER TAILER) athologist Signature White Blood Cell 5.1 3.8 - 11.0 HP CONVERSIO N Count k/cmm Red Blood Cell 4.67 3.70 - HP CONVERSION Count 5.20 m/cmm Hemoglobin 13.5 11.8 - HP CONVERSION 15.5 g/dL Hematocrit 42.9 35.0 - HP CONVERSION 46.0 % Mean Corpuscular 91.9 80.0 - HP CONVERSION Volume 100.0 fL RDW 13.2 11.0 - HP CONVERSION 15.0 % Platelet Count 311 140 - 450 HP CONVERSION k/cmm Specimen (Source) Anatomical Collection Method Collection Time Re ceived Time Location / / Volume Laterality 05/09/2010 9:37 AM EDGER TAILER Pamela MARTINEZC LAB_1 Performing Organization Address City/State/[facility] Code Phon e Number HP CONVERSION documented in this encounter Visit Diagnoses Not on filedocumented in this encounter Care Teams Fire And Explosion Investigator Relationship Specialty Start Date End Date Terell Malloy MD PCP - General 07/01/10 11/08/12 [address] [id number] documented as of this encounter
--- OUTSIDE RECORDS SUMMARY | 2022-02-13 12:11 | XMS_ITS | Encounter Summary ---
:1950 Author Organization [facility] Address [address] [place] [address] Care Team Providers Name Role Phone Terell Malloy MD Primary Care Provider Encounter Details Date Type Department Care Team Description 05/23/2009 Office Visit [facility] Tony Auguste [facility] [address] [place] [address] [place] [address] [place] [address] [place], [place] [id number] [phone] Social History Tobacco Use Types Packs/Day Years Used Date Smoking Tobacco: Never Assessed Sex Assigned at Date Recorded Female 01/13/2021 5:27 PM CDT documented as of this encounter Last Filed Vital Signs Vital Sign Reading Time Taken Comments Blood Pressure 116/82 05/23/2009 2:42 PM REMOTE SENSING TECHNOLOGIST Pulse - - Temperature - - Respiratory Rate - - Oxygen Saturation - - Inhaled Oxygen Concentration - - Weight 109.1 kg (240 lb 9.4 oz) 05/23/2009 2:42 PM C: 1 09.1kg REMOTE SENSING TECHNOLOGIST Height - - Body Mass Index 40.04 04/10/2009 9:34 AM REMOTE SENSING TECHNOLOGIST documented in this encounter Progress Notes Amanda Aly RN - 05/23/2009 12:01 AM CST Progress Notes signed by Amanda Aly RN at 05/23/09 1804 Author: Amanda Aly RN Service: (none) Author Type: Registered Nurse Filed: 07/19/102026 Note Time: 05/23/092026 Status: Signed Youth Program Director: Amanda Aly RN (Registered Nurse) Department of Bariatric Surgery Initial Post-Op Visit SUBJECTIVE: This 58 year-old female presents for routine first post-operative follow-up, status post-laparoscopic adjustable banded gastroplasty. Date of Surgery: 05/14/2009 Type of Band: APS. Patient Symptoms: Fluid intake averages 48 to 64 oz per day. Patient denies chest pain, shortness of breath, excessive abdominal pain, heartburn, vomiting, diarrhea, leg pain or increasing edema. Medications: Reviewed and updated today on Health Profile in the Electronic Medical Record. Adverse Drug Reactions: Pt's Adverse Drug Reactions were reviewed, and updated today on the Health Profile of the Electronic Medical Record. Exercise: Patient is not currently engaged in any formal exercise program. OBJECTIVE: Today's Height: 65.0 inches. Preoperative Weight: 261.0 lbs. / 118.6 kg. BMI: 43.5 kg/meter squared. [place] Weight ([employer]): 134 lbs. / 61 kg. Excess Weight: 127 lbs. / 58 kg. Today's Weight: 240.6 lbs. / 109.4 kg. BMI: 40.1 kg/meter squared. Total Weight Change: -20.4 lbs. / -9.3 kg. % Excess Weight Loss: 16%. Vital Signs: Vital Signs taken today were reviewed on the flowsheet in the Electronic Medical Record. Gen: Patient is in no apparent distress. Respiratory: No distress is noted. CV: Heart rate and rhythm are regular. Abdomen: Soft and nontender. Incision(s) healing well without signs of infection. No incisional hernia seen. incisions clean dry and intact Lower Extremities: No tenderness/edema. Neuropsych: Patient is alert and oriented X 3. Exhibits appropriate affect. ASSESSMENT: No apparent complications. Doing well postoperatively. PLAN: Return to clinic in 2 to 3 weeks, sooner PRN any concerns. Discussed with the patient appropriate diet after a gastric band placement with emphasis on 3 meals per day, with protein at every meal followed by a good fruit and/or vegetable choice. Meal duration, exercise, snacking avoidance, avoidance of high calorie liquids, and satiety goals were also reviewed. Dietitian appointment in 3-4 weeks. Increase physical activity as tolerated to goal of 30 minutes five times per week. Patient is asked to follow up with primary care provider for further evaluation and treatment of changing medical comorbidities. *SH~BARIATRIC~BNDPO~ Shorthand Note Completed on: 05/23/2009 2:24 PM TE SENSING TECHNOLOGIST documented in this encounter Plan of Treatment Not on filedocumented as of this encounter Visit Diagnoses Not on filedocumented in this encounter Care Teams Water Quality Control Engineer Relationship Specialty Start Date End Date Terell Malloy MD PCP - General 07/01/10 11/08/12 [address] [id number] documented as of this encounter
--- OUTSIDE RECORDS SUMMARY | 2022-02-13 12:11 | XMS_ITS | Encounter Summary ---
:1950 Author Organization [facility] [employer] Address [address] [place] [address] Care Team Providers Name Role Phone Unassigned, Provider Primary Care Provider Unavailable Encounter Details Date Type Department Care Team Description 12/20/2008 Hospital Encounter HOLINESS CONVERSION Madiha Escobedo MD Social History Tobacco Use Types Packs/Day Years [...] MCG/ACT IN AERO PROAIR HFA 108 (90 BASE) Inhale 2 puffs by 0 MCG/ACT IN AERS mouth every 4-6 hours as needed for breathing difficulties. Do not use more than 12 puffs in 24 hours. TYLENOL PM EXTRA STRENGTH 1 tablet daily 0 500-25 MG OR TABS buPROPion (BUDEPRION XL) Take 1 tablet by 30 5 07/2805/14/2009 300 MG 24 hour release mouth every morning. tablet LW Addl Instr:Indicated for: Depression buPROPion (BUDEPRION XL) Take 1 tablet by 30 3 04/1505/14/2009 300 MG 24 hour release mouth every morning. tablet LW Addl Instr:Indicated for: Depression calcium carbonate Take by mouth. 0 11/22/2008 (CALCARB 600) 1500 (600 CA) MG cholecalciferol (AKA Take by mouth daily 0 200807/10/2009 VITAMIN D3) 1000 UNITS (every 24 hours). tablet clonazePAM (KLONOPIN) 1 Take 1.5 tablets by 135 0 10/15/2015 MG tablet mouth nightly. LW Addl Instr:Please delete the refills on the 30 day supply, no refills on this 90 day supply Indicated for: Anxiety ferrous sulfate (FE TABS) Take 1 tablet by 0 11/2809/25/2009 325 (65 FE) MG enteric mouth daily (every coated tablet 24 hours). LW Addl Instr:Indicated for: Iron Deficiency Anemia fluticasone (FLOVENT HFA) Inhale 1 puff 2 36 3 11/2207/09/2014 110 mcg/actuation inhaler times daily. LW Addl Instr:Rinse mouth/gargle after use. Indicated for: Asthma Multiple Take 1 tablet by 100 3 12/18/2008 07/11/19 10 Vitamins-Minerals mouth daily (every (THERAPEUTIC 24 hours). MULTIVIT/MINERAL) tablet omega-3 fatty acids (FISH Indications: PN: 0 10/2805/14/2009 OIL) 1000 MG capsule ranitidine (AKA ZANTAC) Take 1 tablet by 90 3 200807/10/2009 300 MG tablet mouth nightly. LW Addl Instr:Indicated for: Acid Reflux triamterene-hydrochloroth Take 1 capsule by 90 3 09/25/2009 iazide (AKA DYAZIDE) mouth daily (every 37.5-25 MG capsule 24 hours). LW Addl Instr:Indicated for: High Blood Pressure unknown medication Indications: PN: 0 11/22/2008 05/01/2010 azelastine (ASTELIN) 0.[address] Place into each 30 3 200803/08/2018 % nasal solution nostril 2 times daily. LW Addl Instr:Indicated for: Rhinitis CALCIUM 600 OR 1 tablet daily 0 2011 CENTRUM SILVER OR 1 tablet daily 0 05/2011 CLONAZEPAM 1 MG OR TABS 1.5mg daily 0 03/08/2018 ERICKA C OR 1 tablet daily 0 06/30/2011 LEVOTHYROXINE SODIUM 125 1 tablet daily 0 10/08/2009 MCG OR TABS OMEGA 3 1000 MG OR CAPS 1 capsule daily 0 03/08/2018 PROTONIX 40 MG TAB Take one tablet by 0 01/01/2009 mouth every day. RANITIDINE HCL 300 MG OR 1 tablet daily in 0 10/08/2009 TABS the morning simvastatin (ZOCOR) 40 MG Take 1 tablet by 90 3 08/09/200810/01/2021 tablet mouth every evening. LW Addl Instr:Indicated for: High Cholesterol SIMVASTATIN 40 MG OR TABS Take one tablet by 0 06/30/2011 mouth every day. TRIAMTERENE-HCTZ 37.5-25 Take one tablet by 0 06/30/2011 MG OR TABS mouth every morning. VITAMIN D 1000 UNIT OR 1 tablet daily 0 06/30/2011 CAPS documented as of this encounter Plan of Treatment Not on filedocumented as of this encounter Procedures Procedure Name Priority Date/Time Associated Comments Diagnosis ECG 12 LEAD Routine 12/20/2008 11:28 AM Results for this OUTPATIENT CDT procedure are i n the results section. documented in this encounter Results ECG 12 Lead Outpatient (12/20/2008 11:28 AM CDT) Specimen (Source) Anatomical Collection Method Collection Time Re ceived Time Location / / Volume Laterality 12/20/2008 11:28 AM CDT Narrative HP CONVERSION - 12/20/2008 11:28 AM CDT Normal sinus rhythm Normal ECG No previous ECGs available Madiha Escobedo MD PN ECG ORDERABLES Performing Organization Address City/State/ZIP Code Phon e Number HP CONVERSION documented in this encounter Visit Diagnoses Not on filedocumented in this encounter Care Teams Safety Associate Relationship Specialty Start Date End Date Unassigned, Provider PCP - General 03/06/00 06/30/[address] [place] [id number] documented as of this encounter
--- OUTSIDE RECORDS SUMMARY | 2022-02-13 12:11 | XMS_ITS | Encounter Summary ---
:1950 Author Organization [employer] Address [address] [place] [address] Care Team Providers Name Role Phone Terell Malloy MD Primary Care Provider Encounter Details Date Type Department Care Team Description 05/01/2010 Veterinary Nurse Only CONVERSION CONVERSION Conversion, I mr Social History Tobacco Use Types Packs/Day Years Used Date Smoking Tobacco: Never Alcohol Use Standard Drinks/Week Comments Not Asked 0 (1 standard drink = 0.6 oz pure alcoho l) Sex Assigned at Date Recorded Female 01/13/2021 5:27 PM CDT documented as of this encounter Progress Notes Conversion, [facility] - 05/01/2010 12:01 AM CST pt scheduled for UGI 1 year lap band placement on 05/08/2010 at 10am Tanisha Cortez LPN LOOP MACHINE OPERATOR documented in this encounter Plan of Treatment Not on filedocumented as of this encounter Visit Diagnoses Not on filedocumented in this encounter Care Teams Senior Telecommunications Specialist Relationship Specialty Start Date End Date Terell Malloy MD PCP - General 07/01/10 11/08/12 [address] [place] [id number] documented as of this encounter
--- OUTSIDE RECORDS SUMMARY | 2022-02-13 12:11 | XMS_ITS | Encounter Summary ---
:1950 Author Organization [facility] Address [address] [place] [id number] Care Team Providers Name Role Phone Terell Malloy MD Primary Care Provider Encounter Details Date Type Department Care Team Description 10/24/2009 PN Conversion Only MEAWSANGEETA CONVERSI ON Pamela Hicks, [address] [facility] [place] [address] [address] [address] Social History Tobacco Use Types [...] Comments Diagnosis N/O LAB FOLIC ACID Routine 10/24/2009 1:19 PM Res ults for this (RBC+FOLATE) CDT procedure are i n the results section. IRON BINDING CAPACITY Routine 10/24/2009 1:19 PM Results for this (INCL IRON) CDT procedure are i n the results section. VITAMIN B1, BLOOD Routine 10/24/2009 1:19 PM Resu lts for this CDT procedure are i n the results section. COPPER, SERUM Routine 10/24/2009 1:19 PM Results for this CDT procedure are i n the results section. GLUCOSE Routine 10/24/2009 1:19 PM Results f or this CDT procedure are i n the results section. VITAMIN D 25 OH Routine 10/24/2009 1:19 PM Result s for this CDT procedure are i n the results section. VITAMIN B6 Routine 10/24/2009 1:19 PM Results f or this CDT procedure are i n the results section. LIPID PANEL AND Routine 10/24/2009 1:19 PM Result s for this DIRECT LDL(IF NEEDED) CDT proced ure are in the results section. INTACT PTH Routine 10/24/2009 1:19 PM Results f or this CDT procedure are i n the results section. CREATININE / GFR Routine 10/24/2009 1:19 PM Resul ts for this CDT procedure are i n the results section. PREALBUMIN Routine 10/24/2009 1:19 PM Results f or this CDT procedure are i n the results section. COMPLETE BLOOD Routine 10/24/2009 1:19 PM Results for this COUNT-NO DIFF CDT procedure are in the results section. ELECTROLYTE PANEL Routine 10/24/2009 1:19 PM Resu lts for this CDT procedure are i n the results section. VIT B12 & FOLATE Routine 10/24/2009 1:19 PM Resul ts for this CDT procedure are i n the results section. FERRITIN Routine 10/24/2009 1:19 PM Results f or this CDT procedure are i n the results section. HGB A1C Routine 10/24/2009 1:19 PM Results f or this CDT procedure are i n the results section. PROTEIN, TOTAL Routine 10/24/2009 1:19 PM Results for this (SERUM) CDT procedure are i n the results section. CALCIUM Routine 10/24/2009 1:19 PM Results f or this CDT procedure are i n the results section. ALBUMIN Routine 10/24/2009 1:19 PM Results f or this CDT procedure are i n the results section. documented in this encounter Results Protein, Total (Serum) (10/24/2009 1:19 PM CDT) P athologist Signature Protein Total, 7.3 5.7 - 8.3 HP CONVERSION Serum g/dL Specimen (Source) Anatomical Collection Method Collection Time Re ceived Time Location / / Volume Laterality 10/24/2009 1:19 PM CDT Pamela Sterlingpati MARTINEZ-C LAB_1 Performing Organization Address [facility] Phon e Number HP CONVERSION VITAMIN D 25 OH (10/24/2009 1:19 PM CDT) athologist Signature Vitamin D 25 Oh 57 30 - 80 HP CONVERSION ng/mL Comment: REFERENCE INTERVAL: Vitamin D, 25-Hydrox y This assay accurately quantifies the sum of vitamin D3, 25-hydroxy and vitamin D2, 25-hydroxy. 0-17 years: Deficiency: less than 20 ng/mL Optimum level: greater than or equal to 20 ng/mL* *(Viveros BARBIE et al. Pediatrics 2008; 122: 1128-38.) 18 years and older: Deficiency: Less than 20 ng/mL Insufficiency: 20-29 ng/mL Optimum Level: 30-80 ng/mL Possible Toxicity: Greater than 150 ng/m L Performed at [facility] [address] [place] [address] 8 Specimen (Source) Anatomical Collection Method Collection Time Re ceived Time Location / / Volume Laterality 10/24/2009 1:19 PM CDT Pamela Sterlingpati [facility] LAB_1 Performing Organization Address [facility] Phon e Number HP CONVERSION VITAMIN B6 (10/24/2009 1:19 PM CDT) athologist Signature Pyridox 11 5 - 50 HP CONVERSION Phosphate mcg/L Comment: Performed at [address] [address] Specimen (Source) Anatomical Collection Method Collection Time Re ceived Time Location / / Volume Laterality 10/24/2009 1:19 PM CDT Pamela Valderrama Fabiola [facility]C LAB_1 Performing Organization Address [facility] Phon e Number HP CONVERSION VITAMIN B1 (10/24/2009 1:19 PM CDT) athologist Signature Vitamin B1 103 70 - 180 HP CONVERSION nmol/L Comment: TEST INFORMATION: Vitamin B1, Whole Bloo d The concentration of thiamine diphosphat e (TDP), the primary active form of vitamin B1, is me asured in this assay. ??Approximately 90% of vitamin B1 present in whole blood is TDP. ??Thiamine and thiamine mo nophosphate, which comprise the remaining 10%, are not wen ured. Performed at [facility] [address] [facility] [place] [place] [facility] [address] Specimen (Source) Anatomical Collection Method Collection Time Re ceived Time Location / / Volume Laterality 10/24/2009 1:19 PM CDT Pamela Sterlingpati [facility]-C LAB_1 Performing Organization Address City/State/ZIP Code Phon e Number HP CONVERSION Intact PTH (10/24/2009 1:19 PM CDT) athologist Signature PTH 52 10 - 100 HP CONVERSION pg/mL Specimen (Source) Anatomical Collection Method Collection Time Re ceived Time Location / / Volume Laterality 10/24/2009 1:19 PM CDT Pamela Valderrama Fabiola [facility]_1 Performing Organization Address City/State/ZIP Code Phon e Number HP CONVERSION N/O LAB FOLIC ACID (RBC+FOLATE) (10/24/2009 1:19 PM CDT) athologist Signature Red Cell Folate 544 280 - 791 HP CONVERSION ng/mL Specimen (Source) Anatomical Collection Method Collection Time Re ceived Time Location / / Volume Laterality 10/24/2009 1:19 PM CDT Pamela Valderrama Fabiola [facility]-C LAB_1 Performing Organization Address City/[facility]/ZIP Code Phon e Number HP CONVERSION Vit B12 & Folate (10/24/2009 1:19 PM CDT) athologist Signature Vitamin B12 590 211 - 911 HP CONVERSION pg/dL Serum Folate >24.0 >5.9 ng/mL HP CONVERSION Specimen (Source) Anatomical Collection Method Collection Time Re ceived Time Location / / Volume Laterality 10/24/2009 1:19 PM CDT Pamela Sterlingpati [facility]-C LAB_1 Performing Organization Address City/State/ZIP Code Phon e Number HP CONVERSION IRON BINDING CAPACITY (INCL IRON) (10/24/2009 1:19 PM CDT) athologist Signature Iron, Serum 73 50 - 165 HP CONVERSION ug/dL Iron Binding 309 250 - 450 HP CONVERSION Capacity ug/dL Iron Saturation 24 20 - 55 % HP CONVERSION Specimen (Source) Anatomical Collection Method Collection Time Re ceived Time Location / / Volume Laterality 10/24/2009 1:19 PM CDT Pamela Hicks PA-C LAB_1 Performing Organization Address City/[facility]/ZIP Code Phon e Number HP CONVERSION Hgb A1c (10/24/2009 1:19 PM CDT) athologist Signature HGB A1C 5.6 0.0 - 6.0 % HP CONVERSION Specimen (Source) Anatomical Collection Method Collection Time Re ceived Time Location / / Volume Laterality 10/24/2009 1:19 PM CDT Pamela Hicks PA-C LAB_1 Performing Organization Address City/[facility]/ZIP Code Phon e Number HP CONVERSION Ferritin (10/24/2009 1:19 PM CDT) athologist Signature Ferritin Serum 47 10 - 291 HP CONVERSION ng/mL Specimen (Source) Anatomical Collection Method Collection Time Re ceived Time Location / / Volume Laterality 10/24/2009 1:19 PM CDT Pamela Hicks PA-C LAB_1 Performing Organization Address City/[facility] Code Phon e Number HP CONVERSION Lipid Panel and Direct LDL(If Needed) (10/24/2009 1:19 PM CDT) [facility] gist Method Time Signature Cholesterol 153 0 - 200 HP CONVERSION mg/dL Triglycerides 85 0 - 149 HP CONVERSION mg/dL HDL Cholesterol 49 >39 mg/dL HP CONVERSION Cholesterol/HDL 3.1 No normal HP CONVERSION Ratio Screen range LDL Calculated 87 19 - 130 HP CONVERSION mg/dL Length Of Fast 12 No normal HP CONVERSION range Specimen (Source) Anatomical Collection Method Collection Time Re ceived Time Location / / Volume Laterality 10/24/2009 1:19 PM CDT Pamela Hicks PA-C LAB_1 Performing Organization Address City/[facility]/ZIP Code Phon e Number HP CONVERSION Electrolyte Panel (10/24/2009 1:19 PM CDT) athologist Signature Sodium 138 137 - 147 HP CONVERSION mEq/L Potassium 4.0 3.5 - 5.2 HP CONVERSION mEq/L Chloride 102 98 - 110 HP CONVERSION mEq/L Bicarbonate 29 23 - 33 HP CONVERSION mmol/L Specimen (Source) Anatomical Collection Method Collection Time Re ceived Time Location / / Volume Laterality 10/24/2009 1:19 PM CDT Pamela Hicks PA-C LAB_1 Performing Organization Address City/State/ZIP Code Phon e Number HP CONVERSION GLUCOSE (10/24/2009 1:19 PM CDT) athologist Signature Lab Glucose 92 60 - 100 HP CONVERSION mg/dL Specimen (Source) Anatomical Collection Method Collection Time Re ceived Time Location / / Volume Laterality 10/24/2009 1:19 PM CDT Pamela Hicks PA-C LAB_1 Performing Organization Address City/[facility]/ZIP Code Phon e Number HP CONVERSION Creatinine / GFR (10/24/2009 1:19 PM CDT) athologist Signature Creatinine 0.9 0.4 - 1.3 HP CONVERSION Serum mg/dL Est GFR >60 >60 HP CONVERSION Am mL/min/1.7 Est GFR Non-Afr >60 >60 HP CONVERSION Am mL/min/1.7 Comment: Normal>60, moderate decrease 30 - 59, se iliana decrease 15 - 29, renal failure <15 mL/min/1.73 m2 NOTE: ??Choose the eGFR result above ren ropriate for the race of the patient. Specimen (Source) Anatomical Collection Method Collection Time Re ceived Time Location / / Volume Laterality 10/24/2009 1:19 PM CDT Pamela Hicks PA-C LAB_1 Performing Organization Address City/[facility]/ZIP Code Phon e Number HP CONVERSION COPPER, SERUM (10/24/2009 1:19 PM CDT) athologist Signature Copper, Serum 140 80 - 155 HP CONVERSION ug/dL Comment: TEST INFORMATION: Copper, Serum Serum copper may be elevated with infect ion, inflammation, stress, copper supplementation, oral con traceptives, and . Concentrations are 2-3 times normal in the third trimester of . Copper may be lo wered with corticosteroids, zinc, malnutrition and malabsorption. Performed at [facility] [address] [place] [address] Specimen (Source) Anatomical Collection Method Collection Time Re ceived Time Location / / Volume Laterality 10/24/2009 1:19 PM CDT Pamela MARTINEZ-C LAB_1 Performing Organization Address City/[facility] Code Phon e Number HP CONVERSION Calcium (10/24/2009 1:19 PM CDT) athologist Signature Calcium 9.9 8.5 - 10.5 HP CONVERSION mg/dL Specimen (Source) Anatomical Collection Method Collection Time Re ceived Time Location / / Volume Laterality 10/24/2009 1:19 PM CDT Pamela MARTINEZ-C LAB_1 Performing Organization Address City/[facility] Code Phon e Number HP CONVERSION Prealbumin (10/24/2009 1:19 PM CDT) athologist Signature Prealbumin 24.3 20.0 - 40.0 HP CONVERSION mg/dL Specimen (Source) Anatomical Collection Method Collection Time Re ceived Time Location / / Volume Laterality 10/24/2009 1:19 PM CDT Pamela MARTINEZ-C LAB_1 Performing Organization Address [facility] Phon e Number HP CONVERSION Albumin (10/24/2009 1:19 PM CDT) athologist Signature Albumin 4.6 3.4 - 5.0 HP CONVERSION g/dL Specimen (Source) Anatomical Collection Method Collection Time Re ceived Time Location / / Volume Laterality 10/24/2009 1:19 PM CDT Pamela MARTINEZC LAB_1 Performing Organization Address [facility] Phon e Number HP CONVERSION Hemogram/Plts (10/24/2009 1:19 PM CDT) athologist Signature White Blood Cell 5.2 3.8 - 11.0 HP CONVERSIO N Count k/cmm Red Blood Cell 4.59 3.70 - HP CONVERSION Count 5.20 m/cmm Hemoglobin 13.6 11.8 - HP CONVERSION 15.5 g/dL Hematocrit 40.5 35.0 - HP CONVERSION 46.0 % Mean Corpuscular 88.1 80.0 - HP CONVERSION Volume 100.0 fL RDW 14.4 11.0 - HP CONVERSION 15.0 % Platelet Count 233 140 - 450 HP CONVERSION k/cmm Specimen (Source) Anatomical Collection Method Collection Time Re ceived Time Location / / Volume Laterality 10/24/2009 1:19 PM CDT Pamela Hicks PA-C LAB_1 Performing Organization Address City/State/ZIP Code Phon e Number HP CONVERSION documented in this encounter Visit Diagnoses Not on filedocumented in this encounter Care Teams Awning Craftsperson Relationship Specialty Start Date End Date Terell Malloy MD PCP - General 07/01/10 11/08/12 [address] [place] [address] documented as of this encounter
--- OUTSIDE RECORDS SUMMARY | 2022-02-13 12:11 | XMS_ITS | Encounter Summary ---
:1950 Author Organization [employer] Address [address] [place] [address] Care Team Providers Name Role Phone Terell Malloy MD Primary Care Provider Encounter Details Date Type Department Care Team Description 10/10/2009 Office Visit [facility] [place] [address] [address] [address] [place] [address] [place] [address] [phone] (Wo rk) Social History Tobacco Use Types [...] - Inhaled Oxygen Concentration - - Weight 104.1 kg (229 lb 6.2 oz) 10/10/2009 8:51 AM C: 1 04.1kg CDT Height - - Body Mass Index 38.17 04/10/2009 9:34 AM FLIGHT MECHANIC documented in this encounter Progress Notes Giorgi Mathias, ZACARIAS - 10/10/2009 12:01 AM CDT [facility] Medical Nutrition Therapy: Bariatric Surgery Post-operative Follow Up Visit Referring provider: Renate Auguste MD Patient seen for follow-up after adjustable band surgery. Pre-op weight: 255.1 lbs Date of surgery: 05/14/2009 Visit weight: 229.4 lbs Date of visit: 10/10/2009 Difference from pre-op: 25.7 lbs Last visit weight: 239.2 lbs Date of last visit: 06/11/2009 Difference from last visit: 9.8 lbs Assessment: Morbid obesity Hyperlipidemia Hypertension WBJP, Sleep Apnea Patient had the following questions/concerns today: Mindi is doing well. Said she got a fill recently and her portions are down a little. She said bread is still hard to eat-gets stuck, and sometimes rice or noodles. Texture: Patient is tolerating regular textures. Volume At Meals: 3/4 c 1 c Estimated protein needs: 48 grams daily Protein intake does meet estimated needs. Protein sources: milk chicken turkey beef beans eggs yogurt cheese cottage cheese Fluids: 64 ounces daily Vitamin/Minerals: Patient is taking the following vitamin and mineral supplements: multivitamin and mineral daily 1000 IU vitamin D daily 1000 mg calcium daily Eating habits: Patient is eating 3 meals a day. Patient is including fruits and vegetables with meals on a regular basis. Snacking habits: Using milk or apple and pb Exercise: Patient is engaging in physical activity, but frequency is inconsistent: 3 times/wk treadmill or ball exericse for 20 min Recommendations/Behavior Changes: Patient set goal for physical activity: aim for 5 times/wk 30 min-set alarm for am or ask group at work to walk over lunch Follow up with dietitian in 3 months. Time: 30 minutes *SH~HEALTHED~HEBSFU~[facility] Note Completed on: 10/10/2009 8:55 AM documented in this encounter Plan of Treatment Not on filedocumented as of this encounter Visit Diagnoses Not on filedocumented in this encounter Care Teams Program Advisor Relationship Specialty Start Date End Date Terell Malloy MD PCP - General 07/01/10 11/08/12 [address] [facility] [address] documented as of this encounter
--- OUTSIDE RECORDS SUMMARY | 2022-02-13 12:11 | XMS_ITS | Encounter Summary ---
:1950 Author Organization [facility] Address [address] [place] [address] Care Team Providers Name Role Phone Unassigned, Provider Primary Care Provider Unavailable Encounter Details Date Type Department Care Team Description 05/14/2009 - Hospital Encounter Denominational 4Tejas Curran MD [address] [place], [place] [id number] 05/15/2009 Medsurg/Tejas Ramos MD [address] [place], [place] [id number] [address] [place] [address] Social History Tobacco Use Types Packs/Day Years Used Date Smoking Tobacco: Never Assessed Sex Assigned at Date Recorded Female 01/13/2021 5:27 PM CDT documented as of this encounter Last Filed Vital Signs Vital Sign Reading Time Taken Comments Blood Pressure 124/93 05/15/2009 8:31 PM CAMERA STORAGE CLERK Pulse 65 05/15/2009 8:31 PM CAMERA STORAGE CLERK Temperature 37.1 ??C (98.8 ??F) 05/15/2009 8:31 PM ORAL C: 9 8.8 F CAMERA STORAGE CLERK Respiratory Rate 20 05/15/2009 8:31 PM CAMERA STORAGE CLERK Oxygen Saturation 94% 05/15/2009 8:31 PM CAMERA STORAGE CLERK Inhaled Oxygen Concentration - - Weight - - Height - - Body Mass Index - - documented in this encounter Discharge Summaries Tejas Melgoza MD - 05/15/2009 12:01 AM CST Discharge Summaries signed by Tejas Melgoza MD at 05/29/09 1600 Author: Tejas Melgoza MD Service: (none) Author Type: Physician Filed: 07/19/102015 Note Time: 05/29/09 1318 Status: Signed [place] Helper: Tejas Melgoza MD (Physician) Hospital Discharge Summary Bariatric Surgery Date of Admission: 05/14/2009 Date of Discharge: 05/15/2009 PATIENT HISTORY: Age: 58 years. Gender: Female Vital Signs: Height: 65 inches Weight on admission: 118.6 kg. (260.9 lbs.) BMI: 43.5 kg/meter squared. [place] Weight ([employer]): 61 kg. (134 lbs.) Excess Weight: 58 kg. (127 lbs.) DISCHARGE DIAGNOSES: 278.1 - Morbid obesity hiatal hernia I.C.U. admission was not required. OPERATIONS PERFORMED THIS ADMISSION: ASA Class: 2 PRIMARY / INITIAL PROCEDURE 53.7 - Laparoscopic hiatal hernia repair w/ suture. (Date: 05/14/2009) (Surgeon: Dr. Melgoza) 44.95 - Laparoscopic adjustable gastric band placement. (Date: 05/14/2009) (Surgeon: Dr. Melgoza) Estimated Blood Loss: 10 cc. Lap Band Type: APSREOPERATIVE PROCEDURES: No reoperative procedures were required. HOSPITAL COURSE: The patient was admitted to [facility] and underwent surgery, then transferred from PACU to [facility] without incident. Pt. was initiated on a clear liquid diet on the evening of surgery. On POD# 1 pt. underwent a gastrograffin swallow which was within normal limits. Ultimately the pt. progressed without incident. On POD# 1 after the gastrograffin swallow, the patient was tolerating fluids, vitals stable, afebrile, urine output satisfactory, and ambulating without difficulty. Pt. met criteria for discharge and discharge to home on POD# 1. DISCHARGE PLAN: Observations, precautions, diet, activity, follow-up, [...] the bariatric surgery department as previously scheduled. Note created by: Pamela Hicks *SH~BARIATRIC~DDDS ~ Shorthand Note Completed on: 05/29/2009 1:20 PM RA STORAGE CLERK documented in this encounter Medications at Time of Discharge Medication Sig Dispensed Refills Start Date End Date ASTELIN 137 MCG/SPRAY NA 2 sprays in the 0 SOLN morning BUDEPRION XL 300 MG OR 1 tablet daily 0 TB24 FLUTICASONE PROPIONATE 1 spray twice daily 0 HFA 44 MCG/ACT IN AERO omeprazole (PRILOSEC) 20 Take 1 capsule by 90 3 11/28 MG capsule mouth daily (every 24 hours). LW Addl Instr:Indicated for: Acid Reflux PROAIR HFA 108 (90 BASE) Inhale 2 puffs by 0 MCG/ACT IN AERS mouth every 4-6 hours as needed for breathing difficulties. Do not use more than 12 puffs in 24 hours. TYLENOL PM EXTRA STRENGTH 1 tablet daily 0 500-25 MG OR TABS calcium carbonate Take by mouth. 0 11/22/2008 (CALCARB 600) 1500 (600 CA) MG cholecalciferol (AKA Take by mouth daily 0 200907/10/2009 VITAMIN D3) 1000 UNITS (every 24 hours). LW tablet Comment:ON HOLD cholecalciferol (AKA Take by mouth daily 0 200807/10/2009 VITAMIN D3) 1000 UNITS (every 24 hours). tablet clonazePAM (KLONOPIN) 1 Take 1.5 tablets by 135 0 10/15/2015 MG tablet mouth nightly. LW Addl Instr:Please delete the refills on the 30 day supply, no refills on this 90 day supply Indicated for: Anxiety ferrous sulfate (FE TABS) Take 1 tablet by 0 04/2909/25/2009 325 (65 FE) MG enteric mouth daily (every coated tablet 24 hours). LW Comment:ON HOLD LW Addl Instr:Indicated for: Iron Deficiency Anemia ferrous sulfate (FE TABS) Take 1 tablet by 0 11/2809/25/2009 325 (65 FE) MG enteric mouth daily (every coated tablet 24 hours). LW Addl Instr:Indicated for: Iron Deficiency Anemia fluticasone (FLOVENT HFA) Inhale 1 puff 2 36 3 11/2207/09/2014 110 mcg/actuation inhaler times daily. LW Addl Instr:Rinse mouth/gargle after use. Indicated for: Asthma Multiple Take 1 tablet by 3 05/14/2009 07/11/19 10 Vitamins-Minerals mouth daily (every (THERAPEUTIC 24 hours). LW MULTIVIT/MINERAL) tablet Comment:ON HOLD Multiple Take 1 tablet by 100 3 12/18/2008 07/11/19 10 Vitamins-Minerals mouth daily (every (THERAPEUTIC 24 hours). MULTIVIT/MINERAL) tablet ranitidine (AKA ZANTAC) Take 1 tablet by 3 200807/10/2009 300 MG tablet mouth every morning. LW Addl Instr:Indicated for: Acid Reflux ranitidine (AKA ZANTAC) Take 1 tablet by 90 3 200807/10/2009 300 MG tablet mouth nightly. LW Addl Instr:Indicated for: Acid Reflux triamterene-hydrochloroth Take 1 capsule by 90 3 09/25/2009 iazide (AKA DYAZIDE) mouth daily (every 37.5-25 MG capsule 24 hours). LW Addl Instr:Indicated for: High Blood Pressure unknown medication Indications: PN: 0 05/14/2009 05/01/2010 unknown medication Indications: PN: 0 12/20/2008 05/01/2010 unknown medication Indications: PN: 0 11/22/2008 05/01/2010 azelastine (ASTELIN) 0.1 Place into each 30 3 200803/08/2018 % nasal solution nostril 2 times daily. LW Addl Instr:Indicated for: Rhinitis CALCIUM 600 OR 1 tablet daily 0 2011 CENTRUM SILVER OR 1 tablet daily 0 05/2011 cetirizine (ZYRTEC) 10 MG 1 tablet daily 30 0 200810/08/2009 tablet CLONAZEPAM 1 MG OR TABS 1.5mg daily 0 03/08/2018 ERICKA C OR 1 tablet daily 0 06/30/2011 LEVOTHYROXINE SODIUM 125 1 tablet daily 0 10/08/2009 MCG OR TABS OMEGA 3 1000 MG OR CAPS 1 capsule daily 0 03/08/2018 omega-3 fatty acids (FISH LW Comment:ON HOLD 0 11/06/2015 OIL) 1000 MG capsule RANITIDINE HCL 300 MG OR 1 tablet daily in 0 10/08/2009 TABS the morning simvastatin (ZOCOR) 40 MG Take 1 tablet by 3 10/2810/01/2021 tablet mouth every evening. LW Addl Instr:Indicated for: High Cholesterol SIMVASTATIN 40 MG OR TABS Take one tablet by 0 06/30/2011 mouth every day. TRIAMTERENE-HCTZ 37.5-25 Take one tablet by 0 06/30/2011 MG OR TABS mouth every morning. unknown medication Indications: PN: 0 04/10/2009 11/06/2015 VITAMIN D 1000 UNIT OR 1 tablet daily 0 06/30/2011 CAPS documented as of this encounter Procedure Notes Tejas Melgoza MD - 05/14/2009 12:01 AM CST OR Surgeon signed by Tejas Melgoza MD at 05/22/09 1603 Author: Tejas Melgoza MD Service: (none) Author Type: Physician Filed: 07/19/102012 Note Time: 05/14/09 1102 Status: Signed Mill[employer] Helper: Tejas Melgoza MD (Physician) NAME: MINDI ALMONTE MR#: [id number] ACCT: [id number] AUTHENTICATING CLINICIAN: Tejas Melgoza MD CONFIRM #: [id number] LOC: 1 OPERATIVE REPORT DATE OF OPERATION: 05/14/09 INDICATIONS FOR PROCEDURE: The patient is a 58-year-old female who has had morbid obesity with numerous failed attempts at weight loss through nonsurgical methods. On evaluation, the patient's BMI is 42.3. Related comorbidities include back pain, gastroesophageal reflux disease, depression, hypertension, hyperlipidemia, pain in weightbearing joints, obstructive sleep apnea, urinary stress incontinence. The patient went through our educational process and was felt to be a satisfactory candidate for laparoscopic adjustable gastric band. Prior to the procedure, the risks and benefits of the procedure were explained to the patient. Understanding these issues the patient gave consent and we proceeded with the surgery. PREOPERATIVE DIAGNOSIS: Morbid obesity. Possible hiatal hernia. POSTOPERATIVE DIAGNOSIS: Morbid obesity. Paraesophageal hiatal hernia. PROCEDURE PERFORMED: Laparoscopic adjustable gastric band placement, Lap Band, AP standard. Laparoscopic hiatal hernia repair. SURGEON: Tejas Melgoza MD BLENDER / COOK: Pamela Hicks PA-C ANESTHESIA: General endotracheal. FINDINGS:Large Hiatial Hernia DESCRIPTION OF OPERATION: The patient was brought to the operating room and placed supine on the operating room table. After satisfactory positioning, the abdomen was prepped and draped in the usual fashion using DuraPrep. A stab incision was made at the left costal margin. A Veress needle was inserted without difficulty and the abdomen was insufflated wit C02. A 5 mm epigatric trochar was placed and the 5 mm laparoscope was inserted. A 15-mm trocar was placed about 10 cm to the left of the laparoscope followed by a 5-mm trocars on the left and two 5-mm trocars on the right. The liver retractor was placed up against the left liver lobe and attached to the liver retractor sweet. After the liver retractor was placed, one could see there was a large paraesophageal hiatal hernia was present. This was paraesophageal in nature. Photographic documentation was obtained. We went ahead and could grasp the stomach and pull it down. I took the hook cautery and went around the circumference of the hiatus on the left side, the right side and anteriorly, and got into the hernia sac and pulled the hernia sac down and reduced it, and pulled this all down. There was a periesophageal fat pad that was all taken down along the patient's right side. We got the right olegario completely cleared off, all the way down to the junction of the left olegario posteriorly. We cleared up the entire side of the left olegario. There was some redundancy on the left side. However, we did not take down, as we tried to use this for attachment to the left side of the band. After we got this completely dissected out, I went ahead and closed the esophageal hiatus with 4 sutures of 2-0 Surgidac using the Endo Stitch posteriorly and 1 suture anteriorly. At the conclusion of this, the hiatus was closed to which size I think would accommodate about a 54-Croatian dilator. This was an estimate, as a dilator was not used. We then put the orogastric tube down the 30 cc balloon, inflated the balloon, pulled it up against the GE junction. We went along the equator of the balloon and went ahead and made a window on the lesser curvature side just adjacent to the stomach, because there was some attachments on that lesser curve side. We went between the attachments to the stomach so we would have something to prevent the band from slipping, and then we took the balloon down and pulled the tube back and exited up against the left olegario with the grasper going up towards the spleen as there were attachments there also. We then passed the band in through the 15 mm port without difficulty. There was good positioning of the band with attachments both in the greater and lesser curvature side. We went ahead and wrapped the fundus around the band up to the small pouch above. We used 3 sutures of 2-0 Surgidac. The 1st one was placed adjacent to the spleen. The 3rd stitch was placed about 1.5 cm between the suture and the buckle. We put an anti-slip stitch below the band, suturing the fundus to itself. The liver retractor was removed. The tubing was pulled out throught the 15 mm port in the left paramedian position. The fascial opening was closed with two sutures of 0 vicryl. the port was assembled and sutured to the fascia with 4 sutures of 0 Nurlon. The redundant tubing was pushed back into the abdominal cavity. The tubing exited the port at the 12 o'clock position. The larger incision was closed with a 3-0 vicryl subdermal stitch and Dermabond. The remaining port sited were closed with Dermabond. Sponge and needle counts were correct times two. OPERATIVE COMPLICATIONS: None. CC: Terell Malloy MD [address] [facility] [address] [place] [address] TAJ:[id number] C: 05/14/09 14:31 CONFIRM #: [id number] RA STORAGE CLERK documented in this encounter Miscellaneous Notes Miscellaneous - Tejas Melgoza MD - 05/15/2009 12:01 AM CST ICD-9-CM ICD-9-CM Narrative description Code ======== DIAGNOSES Principal: MORBID OBESITY 278.01 Secondary: DIAPHRAGMATIC HERNIA 553.3 ESOPHAGEAL REFLUX 530.81 DEPRESSIVE DISORDER NEC 311 HYPERTENSION NOS 401.9 HYPERLIPIDEMIA NEC/NOS 272.4 OBSTRUCTIVE SLEEP APNEA (ADULT)(PEDIATRIC) 327.23 FEM STRESS INCONTINENCE 625.6 HYPOTHYROIDISM NOS 244.9 BODY MASS INDEX 40 AND OVER, ADULT V85.4 PROCEDURES Provider1 Date Principal: LAPAROSCOPIC GASTRIC RES TEJAS MELGOZA [id number] 44.95 Provider2: Provider3: BRADEN BARTHOLOMEW Secondary: LAPRO RPR OF DIAPHRAGMAT TEJAS MELGOZA [id number] 53.71 Provider2: Provider3: RA STORAGE CLERK documented in this encounter Plan of Treatment Not on filedocumented as of this encounter Procedures Procedure Name Priority Date/Time Associated Comments Diagnosis HEMOGLOBIN, BLOOD Routine 05/15/2009 9:11 AM Resu lts for this CAMERA STORAGE CLERK procedure are i n the results section. XR CHEST 2 VIEWS Routine 05/15/2009 9:02 AM Resul ts for this CAMERA STORAGE CLERK procedure are i n the results section. FL STOMACH W Routine 05/15/2009 8:58 AM Results f or this GASTROGRAFIN WO KUB CAMERA STORAGE CLERK procedur e are in the results section. ECG 12 LEAD INPATIENT STAT 05/14/2009 4:27 PM Results for this CAMERA STORAGE CLERK procedure are i n the results section. XR PORTABLE CHEST 1 Routine 05/14/2009 12:41 Resu lts for this VIEW PM CAMERA STORAGE CLERK procedure are i n the results section. MRSA CULTURE Routine 05/14/2009 8:40 AM Results f or this CAMERA STORAGE CLERK procedure are i n the results section. BEDSIDE GLUCOSE Routine 05/14/2009 8:03 AM Result s for this MONITOR POCT CAMERA STORAGE CLERK procedure are i n the results section. POTASSIUM Routine 05/14/2009 7:37 AM Results f or this CAMERA STORAGE CLERK procedure are i n the results section. documented in this encounter Results Hemoglobin, Blood (05/15/2009 9:11 AM CAMERA STORAGE CLERK) P athologist Signature Hemoglobin 11.8 11.8 - 15.5 HP CONVERSION gm/dL Specimen (Source) Anatomical Collection Method Collection Time Re ceived Time Location / / Volume Laterality 05/15/2009 9:11 AM CAMERA STORAGE CLERK Shireen Rushing MD LAB_1 Performing Organization Address City/State/ZIP Code Phon e Number HP CONVERSION XR Chest 2 Views (05/15/2009 9:02 AM CAMERA STORAGE CLERK) Anatomical Region Laterality Modality Chest, Lung Other Specimen (Source) Anatomical Location Collection Method / Collectio n Time Received Time / Laterality Volume Narrative 05/15/2009 9:02 AM CAMERA STORAGE CLERK Comparison is made to 05/14/2009. ??There somewhat more patchy atelectasis at the medial left lung base with some continued atelectasis at the right base which is s lightly decreased. ??Upper lungs are clear and heart and mediastinu m are unremarkable. ??There is a gastric band in place. CONCLUSIONS: Patchy bibasilar atelectasi s increased on the left and decreased on the right compared to 05/14 Dictating AMOS GARRETT RADIOLOGIST Procedure Note Amos Cortez - 09/12/2015Formattin g of this note might be different from the original. Comparison is made to 05/14/2009. There somewhat more patchy atelectasis at the medial left lung base with some continued atelectasis at the right base which is s lightly decreased. Upper lungs are clear and heart and mediastinu m are unremarkable. There is a gastric band in place. CONCLUSIONS: Patchy bibasilar atelectasi s increased on the left and decreased on the right compared to 05/14 Dictating AMOS GARRETT RADIOLOGIST Tejas Melgoza MD RAD GD FL Stomach W Gastrografin WO KUB (05/15/2009 8:58 AM CAMERA STORAGE CLERK) Anatomical Region Laterality Modality Abdomen Other Specimen (Source) Anatomical Location Collection Method / Collectio n Time Received Time / Laterality Volume Narrative 05/15/2009 8:58 AM CAMERA STORAGE CLERK Patient's gastric band is satisfactorily positioned. ??She swallowed Optiray 300 without difficulty and there is free flow across the band into the more distal stomach. CONCLUSIONS: Gastric band is appropriate ly positioned with no obstruction. Dictating AMOS GARRETT RADIOLOGIST Procedure Note Amos Cortez - 09/12/2015Formattin g of this note might be different from the original. Patient's gastric band is satisfactorily positioned. She swallowed Optiray 300 without difficulty and there is free flow across the band into the more distal stomach. CONCLUSIONS: Gastric band is appropriate ly positioned with no obstruction. Dictating AMOS GARRETT RADIOLOGIST Tejas Melgoza MD RAD FL ECG 12 Lead Inpatient (05/14/2009 4:27 PM CAMERA STORAGE CLERK) Specimen (Source) Anatomical Collection Method Collection Time Re ceived Time Location / / Volume Laterality 05/14/2009 4:27 PM CAMERA STORAGE CLERK Narrative HP CONVERSION - 05/14/2009 4:27 PM CAMERA STORAGE CLERK Normal sinus rhythm Nonspecific T wave abnormality Prolonged QT interval or tu fusion, con crystal slicer myocardial disease, electrolyte imbalance, or drug effects Abnormal ECG When compared with ECG of 20-DEC-2008 1 1:28, T wave inversion now evident in Lateral leads Tejas Melgoza MD PN ECG ORDERABLES Performing Organization Address City/State/ZIP Code Phon e Number HP CONVERSION XR Portable Chest 1 View (05/14/2009 12:41 PM CAMERA STORAGE CLERK) Anatomical Region Laterality Modality Chest, Lung Other Specimen (Source) Anatomical Location Collection Method / Collectio n Time Received Time / Laterality Volume Impressions 05/14/2009 12:41 PM CAMERA STORAGE CLERK : Small left apical pneumothorax. Dictating JOSE ENRIQUE PRICE RADIOLOGIST Narrative 05/14/2009 12:41 PM CAMERA STORAGE CLERK There is a small left apical pneumothorax. ??Shallow inspiration. Patchy consolidation could be present in the right medial base. Heart size upper normal. ??There is unfo lding of the aortic arch, secondary to rotation and shallow inspir ation. ??Report called. Procedure Note Jose Enrique Mak - 09/12/2015Formatting o f this note might be different from the original. There is a small left apical pneumothora x. Shallow inspiration. Patchy consolidation could be present in the right medial base. Heart size upper normal. There is unfold ing of the aortic arch, secondary to rotation and shallow inspir ation. Report called. IMPRESSION : Small left apical pneumothorax. Dictating JOSE ENRIQUE PRICE RADIOLOGIST Pamela Hicks PA-C RAD PORTABLE MRSA Culture (05/14/2009 8:40 AM CAMERA STORAGE CLERK) [facility] At [facility] Time Signature Culture Mrsa SEE TEXT HP CONVERSION Screen Comment: Patient: MINDI ALMONTE Culture, MRSA Screen ?Collected: ??[id number] ??[id number] Source: NARES ? Processed: ??[id number] ??[id number] ? NARES Final Report ------ ?[id number] ??2020 No Methicillin resistant Staph aureus is olated. Specimen (Source) Anatomical Collection Method Collection Time Re ceived Time Location / / Volume Laterality 05/14/2009 8:40 AM CAMERA STORAGE CLERK Rekha Cornelius MD LAB_1 Performing Organization Address City/State/ZIP Code Phon e Number HP CONVERSION BEDSIDE GLUCOSE MONITOR (05/14/2009 8:03 AM CAMERA STORAGE CLERK) P athologist Signature Bedside Blood 100 mg/dL HP CONVERSION Glucose Test Blood Glucose * No normal HP CONVERSION Screen, range Comment 1 Blood Glucose * No normal HP CONVERSION Screen, range Comment 2 Blood Glucose * No normal HP CONVERSION Screen, range Comment 3 Specimen (Source) Anatomical Collection Method Collection Time Re ceived Time Location / / Volume Laterality 05/14/2009 8:03 AM CAMERA STORAGE CLERK Tejas Melgoza MD LAB_1 Performing Organization Address City/State/ZIP Code Phon e Number HP CONVERSION Potassium (05/14/2009 7:37 AM CAMERA STORAGE CLERK) P athologist Signature Potassium 3.5 3.5 - 5.2 HP CONVERSION mEq/L Specimen (Source) Anatomical Collection Method Collection Time Re ceived Time Location / / Volume Laterality 05/14/2009 7:37 AM CAMERA STORAGE CLERK Tejas Melgoza MD LAB_1 Performing Organization Address City/State/ZIP Code Phon e Number HP CONVERSION documented in this encounter Visit Diagnoses Not on filedocumented in this encounter Care Teams Hydrometeorological Technician Relationship Specialty Start Date End Date Unassigned, Provider PCP - General 03/06/00 06/30/[address] [place] [id number] documented as of this encounter
--- OUTSIDE RECORDS SUMMARY | 2022-02-13 12:12 | XMS_ITS | Encounter Summary ---
:1950 Author Organization [facility] Address [address] [place] [address] Care Team Providers Name Role Phone Unassigned, Provider Primary Care Provider Unavailable Encounter Details Date Type Department Care Team Description 12/19/2008 Hospital Encounter RAST[facility]ARIAN CONVERSION Madiha Escobedo MD Social History Tobacco [...] MG Take 1 tablet by 90 3 /09/200810/01/2021 tablet mouth every evening. LW Addl Instr:Indicated [...] on filedocumented in this encounter Care Teams Point Of Sale Associate Relationship Specialty Start Date End Date Unassigned, Provider PCP - General 03/06/00 06/30/[address] [place] [id number] documented as of this encounter
--- OUTSIDE RECORDS SUMMARY | 2022-02-13 12:12 | XMS_ITS | Encounter Summary ---
:1950 Author Organization [email or web address] Address [address] [place] [address] Care Team Providers Name Role Phone Terell Malloy MD Primary Care Provider Encounter Details Date Type Department Care Team Description 11/21/2008 PN Conversion Only [facility] CONVERSION [address] [id number] Social History Tobacco Use Types Packs/Day Years Used Date Smoking Tobacco: Never Assessed Sex Assigned at Date Recorded Female 01/13/2021 5:27 PM CDT documented as of this encounter Plan of Treatment Not on filedocumented as of this encounter Visit Diagnoses Not on filedocumented in this encounter Care Teams Director Talent Relationship Specialty Start Date End Date Terell Malloy MD PCP - General 07/01/10 11/08/12 [address] [id number] documented as of this encounter
--- OUTSIDE RECORDS SUMMARY | 2022-02-13 12:12 | XMS_ITS | Encounter Summary ---
:1950 Author Organization [facility] Address [address] [place] [address] Care Team Providers Name Role Phone Unavailable Primary Care Provider Unavailable Encounter Details Date Type Department Care Team Description 01/06/2021 Orders Only Department of Orthopedic Sneha Moreno, Surgery in [place], [facility] [address] [facility] [address] [place] [phone] (Wo rk) Social History Tobacco Use Types Packs/Day Years Used Date Smoking Tobacco: Never Smokeless Tobacco: Never Alcohol Use Standard Drinks/Week Comments No 0 (1 standard drink = 0.6 oz pure alcoho l) Caffeine - 1-2 servings daily Alcohol Habits Answer Date Recorded How often do you have a drink containing alcohol? Never 10/07/2020 How many drinks containing alcohol do you have on a typical day 1 or 2 04/15/2019 when you are drinking? How often do you have six or more drinks on one occasion? Ne kaitlin 04/15/2019 Social Isolation Answer Date Recorded In a typical week, how many times do you Three times a week 10/07/2020 talk on the phone with family, friends, or neighbors? How often do you get together with friends Once a week 10/07/2020 or relatives? How often do you attend evangelical or temple More than 4 time s per year 10/07/2020 services? Do you belong to any clubs or organizations No 10/07/2020 such as evangelical groups, unions, fraternal or athletic groups, or school groups? How often do you attend meetings of the Never 10/07/2020 clubs or organizations you belong to? Are you now , , , 10/07/2020 , never or living with a partner? Physical Activity Answer Date Recorded On average, how many days per week do you engage in moderate to 0 days 10/07/2020 strenuous exercise (like walking fast, running, jogging, dancing, swimming, biking, or other activities that cause a light or heavy sweat)? On average, how many minutes do you engage in exercise at th is 0 min 10/07/2020 level? Stress Answer Date Recorded Do you feel stress - tense, restless, nervous, or To some ex tent 10/07/2020 anxious, or unable to sleep at night because your mind is troubled all the time - these days? Financial Resource Strain Answer Date Recorded How hard is it for you to pay for the very basics like Not h carlos at all 10/07/2020 food, housing, medical care, and heating? Food Insecurity Answer Date Recorded Within the past 12 months, you worried that your food would Never true 10/07/2020 run out before you got money to buy more. Within the past 12 months, the food you bought just didn't N ever true 10/07/2020 last and you didn't have money to get more. Transportation Needs Answer Date Recorded In the past 12 months, has lack of transportation kept you f rom No 10/07/2020 medical appointments or from getting medications? In the past 12 months, has lack of transportation kept you f rom No 10/07/2020 meetings, work, or getting things needed for daily living? Housing Stability Answer Date Recorded In the last 12 months, was there a time when you were not ab le No 10/07/2020 to pay the mortgage or rent on time? In the last 12 months, how many places have you lived? 1 10/07/2020 In the last 12 months, was there a time when you did not hav e a No 10/07/[address] to sleep or slept in a nursing home (including now)? Education Answer Date Recorded What is the highest level of school you have completed or 12 th grade 04/15/2019 the highest degree you have received? 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
--- OUTSIDE RECORDS SUMMARY | 2022-02-13 12:12 | XMS_ITS | Encounter Summary ---
:1950 Author Organization [facility] Address [address], [place] [address] Care Team Providers Name Role Phone Unassigned, Provider Primary Care Provider Unavailable Encounter Details Date Type Department Care Team Description 08/10/2008 Orders Only External to Unknown, [facility] [address] [place] [address] (Wo rk) Social History Tobacco Use Types Packs/Day Years Used Date Smoking Tobacco: Never Assessed Sex Assigned at Date Recorded Female 01/13/2021 5:27 PM CDT documented as of this encounter Procedure Notes Transferred Record, Provider - 08/10/2008 12:00 AM CDTAssociated Order(s): [facility]ANNED [facility] documented in this encounter Plan of Treatment Not on filedocumented as of this encounter Procedures Procedure Name Priority Date/Time Associated Diagnosis Comme nts SCANNED LAB 08/10/2008 12:00 AM Results for this CDT procedure are i n the results section . documented in this encounter Results SCANNED [facility] (08/10/2008 12:00 AM CDT) Specimen (Source) Anatomical Location Collection Method / Collectio n Time Received Time / Laterality Volume 08/10/2008 Narrative 08/10/2008 12:00 AM CDT This result has an attachment that is no t available. Ordered by an unspecified provider. Transcriptions Transferred Record, Provider - 9 12:00 AM CDT Physician Unknown LAB_1 documented in this encounter Visit Diagnoses Not on filedocumented in this encounter Care Teams Clinical Asst Relationship Specialty Start Date End Date Unassigned, Provider PCP - General 03/06/00 06/30/[address] [place] [address] documented as of this encounter
--- OUTSIDE RECORDS SUMMARY | 2022-02-13 12:12 | XMS_ITS | Encounter Summary ---
:1950 Author Organization [facility] Address [address] [place] [address] Care Team Providers Name Role Phone Terell Malloy MD Primary Care Provider Encounter Details Date Type Department Care Team Description 07/15/2005 PN Conversion Only [facility] [address] [address] Social History Tobacco Use Types Packs/Day Years Used Date Smoking Tobacco: Never Assessed Sex Assigned at Date Recorded Female 01/13/2021 5:27 PM CDT documented as of this encounter Plan of Treatment Not on filedocumented as of this encounter Visit Diagnoses Not on filedocumented in this encounter Care Teams Peg Driver Relationship Specialty Start Date End Date Terell Malloy MD PCP - General 07/01/10 11/08/12 [address] [id number] documented as of this encounter
--- OUTSIDE RECORDS SUMMARY | 2022-02-13 12:12 | XMS_ITS | Clinical Summary ---
:1950 Author Organization [facility] Address [address] [place] [address] Care Team Providers Name Role Phone Unavailable Primary Care Provider Unavailable Source Comments Patient records contain information from all sites at [facility]. For routine questions regarding patient records, call [phone] during business hours, M-F 8:00 AM - 5:00 PM Central Time. Record requests for emergency care only can be directed to [phone] at any time.[facility] Allergies Active Allergy Reactions Severity Noted Date Comments Cat Dander Other (see comments) Low 03/30/2012 sinus i ssues House Dust Mite Other (see comments) Low 03/30/2012 sinu s issues Mold Other (see comments) Low 03/30/2012 sinus i ssues Perfume Other (see comments) Low 03/30/2012 Includi ng smoke. eyes water,cough Tree Pollen-White Cough Low 09/24/2014 Birch (Betula Verrucosa),Std Medications Medication Sig Dispensed Refills Start Date End Date Status albuterol (PROVENTIL Inhale 2 puffs as 0 06/29/2014 Active HFA,VENTOLIN HFA) 90 needed for mcg/actuation inhaler shortness of breath. cholecalciferol Take 4,000 Units 0 07/25/2013 Active (VITAMIN D3) 50 mcg by mouth every (2,000 Unit) tablet morning. mirtazapine (REMERON) Take 45 mg by 0 07/17/2015 Active 45 mg tablet mouth at bedtime. rOPINIRole (REQUIP) 2 Take 2 mg by mouth 0 6 Active mg tablet at bedtime. simvastatin (ZOCOR) 20 Take 1 tablet by 0 07/17/2015 Active mg tablet mouth at bedtime. levothyroxine Take 125 mcg by 0 Active (SYNTHROID, mouth daily. LEVOTHROID) 125 mcg tablet azelastine (ASTELIN) Administer 1 spray 0 Active 137 mcg/spray (0.1 %) into each nostril nasal spray 2 (two) times a day. Use in each nostril as directed oxybutynin Take 10 mg by 0 Activ e (DITROPAN-XL) 10 mg 24 mouth 2 (two) hr tablet times a day. ascorbic acid (VITAMIN Take 500 mg by 0 Active C ORAL) mouth daily. famotidine-Ca carb-mag Chew 1 tablet 0 Active hydrox (PEPCID daily. COMPLETE) 10-800-165 mg chewable tablet ZINC ORAL Take 50 mg by 0 Active mouth every morning. melatonin 5 mg tablet Take 5 mg by mouth 0 Active every evening. guaiFENesin (MUCINEX) Take 600 mg by 0 Active 600 mg 12 hr tablet mouth as needed for congestion. calcium carbonate Chew 1 tablet as 0 Active (calcium carbonate EX) needed for 750 mg (300 mg indigestion or calcium) chewable heartburn. tablet naproxen sodium Take 220 mg by 0 Active (ALEVE/ANAPROX) 220 mg mouth as needed tablet for pain. 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 Overview: L4-5 Other Specified Arthritis Left Knee 08/11/2017 Overview: Added automatically from request for lauren saldivar [id number] Morbid Severe Obesity Due To Excess Calories 6 Primary Osteoarthritis Knee Bilateral 03/30/2012 Surgery Bariatric Status Post 05/14/2009 Overview: Overview: Laparoscopic adjustable gastric band, AP S Sleep Apnea 05/09/2009 Overview: Overview: LW Modifier: Severe, AHI 73/hour ; Obstructive Sleep Apnea Hypopnea Unable to tolerate CPAP Hypothyroidism 08/09/2008 Immunizations Name Administration Dates Next Due H1N1 Inj 03/14/2009 HZV (ZOSTAVAX) 02/25/2017, 09/08/2012 Influenza Split 11/28/2011 Influenza TIV (IM) 11/19/2011, 03/02/2001, 12/28/1997 Influenza, Injectable, Quadrivalent 12/30/2016 PPSV23 10/02/2016 RZV (SHINGRIX) 01/30/2019 Tdap 04/23/2008 influenza high dose (65 years or older) 01/01/2016 (PF) Family History Medical History Relation Name Comments Diabetes Brother 1 Nnamdi Cage Diabetes Brother 2 Michael Cage Dementia Brother 3 Kapil Cage 67 years old, [facility] diagnosed Coronary artery disease Father Zack Cage Diabetes Father Zack Cage Skin cancer Father Zack Cage Colon cancer Mother Cira Cage Hypertension Mother Cira Cage Colon cancer Sister Catherine Elliottc Coronary artery disease Sister Catherine Elliottc Diabetes Sister Catherine Ojedazac Hypertension Sister Catherine Elliottc Relation Name Status Comments Brother 1 Nnamdi Cage Brother 2 Michael Cage Brother 3 Kapil Cage Father Zack Cage Mother Cira Cage Sister Catherine Bolton Social History Tobacco Use Types Packs/Day Years [...] or relatives? How often do you attend denominational or tenriism More than 4 time s per year 10/07/2020 services? Do you belong to any clubs or organizations No 10/07/2020 such as denominational groups, unions, fraternal or athletic groups, or [...] place to sleep or slept in a care home (including now)? Education Answer Date Recorded What is the highest level of school you have completed or 12 th grade 04/15/2019 the highest degree you have received? 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 Vital Signs Vital Sign Reading Time Taken Comments Blood Pressure 139/72 07/12/2020 1:06 PM CDT Pulse 75 07/12/2020 1:06 PM CDT Temperature 36.9 ??C (98.4 ??F) 07/12/2020 1:06 PM CDT Respiratory Rate 16 07/12/2020 1:06 PM CDT Oxygen Saturation 94% 07/12/2020 1:06 PM CDT Inhaled Oxygen Concentration - - Weight 119 kg (262 lb 5.6 oz) 07/11/2020 7:37 AM CDT Height 164 cm (5' 4.57) 07/11/2020 7:37 AM CDT Body Mass Index 44.24 07/11/2020 7:37 AM CDT Plan of Treatment Health Maintenance Due Date Last Done Comments Bone Density Scan (Osteoporosis 1950 Screen) CT Colonography 1950 Cologuard 1950 Colonoscopy 1950 Colorectal Cancer Surveillance 1950 Mammogram 1950 Thyroid Stimulating Hormone (TSH) 1950 test for thyroid function Fasting Glucose for Diabetes 07/18/2018 07/19/2015, 016, Screening 05/04/2012, Additional history exists Depression Screening (Annual 03/29/2021 PHQ-2) Fall Risk Screen (Annual) 03/29/2021 Pneumococcal vaccine (65+ years) 10/02/2021 10/05/2017, 09/2016 (3 - PPSV23 if available, else PCV20) DTaP,Tdap,and Td Vaccines (3 - Td 10/18/2028 10/18/2018, or Tdap) Zoster Vaccines Completed 05/08/2019, 01/30/2019, 02/25/2017, Additional history exists Hepatitis C Screening Completed 07/11/2020, 07/19/2015, 07/19/2015 Influenza Vaccine Completed 12/26/2021, 12/05/2020, 12/06/2019, Additional history exists COVID-19 Vaccine Completed 01/14/2022, 01/28/2021, 06/20/2020, Additional history exists Medical Devices Implanted Type Area Bat Carrier Device Shelf Model / Identifier Expiration Serial / Date Lot Cmnt Bn Hi Visc Pmma 40 - [id number] Bone Cement Left: Kailey [id number] / Implanted: Qty: 1 on 12/09/2017 by Suhas Brown M.D. at [facility] Knee / Trilogy-Screw 6.5x40 - [id number] Hardware Juan Manuel [employer]omet Implanted: Qty: 1 on 07/18/2015 e.g. pins/screws/ rods Description: Device Bat Carrier - Zimme r. Device Status Text - [id number]. Scrw Pnn Acet Ft 6.5x25 - [id number] Hardware e.g. Right: Hip Depu y 05/26/2030 [id number] / Implanted: Qty: 1 on 07/11/2020 at [facility] pins /screws/rods Synthes / [id number] Zim. Shell Tril W Holes 54 - [id number] Hip Implant Other/Legacy - Z immer Implanted: Qty: 1 on 07/18/2015 See Implant Biomet Description Description: Device Bat Carrier - Zimme r. Body Location - Other. Left. Device Status Text - [id number] [id number]. Bimentum Liner Hip Right: Hip Depuy [id number] / Implanted: Qty: 1 on 07/11/2020 at [facility] Implant Synthes / [id number] Triathlon-Tibial Baseplate Slemp #4 - [id number] Knee Other/Legacy - [place] Implanted: Qty: 1 on 05/02/2012 Implant See Implant Description Description: Device Bat Carrier - Stryk er Radha.. Body Location - Other. Right. Device Status Text - [id number] [id number]. Ins Tib Trt Ps X3 5 11 - [id number] Knee Implant Left: Knee Stryke r 07/05/2022 [id number] / Implanted: Qty: 1 on 12/09/2017 by Suhas Brown M.D. at [facility] / [id number] Cement Bone Large - Romo [id number] Misc Other Kailey Implanted: Qty: 2 on 05/02/2012 Description: Device Bat Carrier - Stryk er Radha.. Device Status Text - [id number]. Conversions - Default Historical Implant Device - Romo [id number] Misc Ot her Abdomen Implanted: 07/18/2015 (Quantity not on file) Description: Body Location - Abdominal. Device Status Text - [id number]-[id number]. stomach lap band. Explanted Type Area Bat Carrier Device Shelf Model / Identifier Expiration Serial / Date Lot Allogenic, Femoral Head - [id number] Bone or Right: [facility] - [id number] / Explanted: Qty: 1 on 07/11/2020 at [facility] Tenriism Carson Tiss ue Hip Tenriism Carson / Description: Bone donor Insurance Payer Benefit Plan Subscriber ID Effective Phone Address Typ e / Group Dates MEDICARE MEDICARE A [id number] 2017-Pres [address] [place] [address] BLUE CROSS BCBS LOWER BRULE [id number] 2020-Pres [phone] [address] X Cost Share BLUE SHIELD BLUE COST ent [phone] [place] [address] [phone] (Home) [place], [place] [phone] [address] (Work) Advance Directives For more information, please contact: [phone] Documents on File Type Date Recorded Patient Operation Research Analyst Explanati on Advance Directives 12/08/2017 11:27 AM Latest Code Status on File Code Status Date Activated Date Inactivated Comments Full Code 07/11/2020 2:06 PM 07/12/2020 5:07 PM Question Answer Comments Full Code: Discussed Code Status History Code Status Date Activated Date Inactivated Comments Full Code 12/09/2017 12:48 PM 12/11/2017 4:58 PM Question Answer Comments Full Code: Discussed
--- OUTSIDE RECORDS SUMMARY | 2022-02-13 12:12 | XMS_ITS | Encounter Summary ---
:1950 Author Organization [facility] Address [address] [place] [address] Care Team Providers Name Role Phone Terell Malloy MD Primary Care Provider Encounter Details Date Type Department Care Team Description 07/03/2004 PN Conversion Only [facility] [address] [facility] . [place], [place] [address] Social History Tobacco Use Types Packs/Day Years Used Date Smoking Tobacco: Never Assessed Sex Assigned at Date Recorded Female 01/13/2021 5:27 PM CDT documented as of this encounter Plan of Treatment Not on filedocumented as of this encounter Visit Diagnoses Not on filedocumented in this encounter Care Teams Director Social Welfare Relationship Specialty Start Date End Date Terell Malloy MD PCP - General 07/01/10 11/08/12 [address] [place], [place] [address] documented as of this encounter
--- OUTSIDE RECORDS SUMMARY | 2022-02-13 12:12 | XMS_ITS | Encounter Summary ---
:1950 Author Organization [facility] Address [address] [place] [address] Care Team Providers Name Role Phone Unassigned, Provider Primary Care Provider Unavailable Encounter Details Date Type Department Care Team Description 06/27/2008 Correspondence None Inactive, Provider MTM PRO GRAM FORM Social History Tobacco Use Types Packs/Day Years Used Date Smoking Tobacco: Never Assessed Sex Assigned at Date Recorded Female 01/13/2021 5:27 PM CDT documented as of this encounter Progress Notes Interface, In Chrtscr And Scan - 08/01/2008 10:20 AM CDT documented in this encounter Plan of Treatment Not on filedocumented as of this encounter Visit Diagnoses Not on filedocumented in this encounter Care Teams Adolescent Specialist Relationship Specialty Start Date End Date Unassigned, Provider PCP - General 03/06/00 06/30/[address] [place] [address] documented as of this encounter
--- OUTSIDE RECORDS SUMMARY | 2022-02-13 12:12 | XMS_ITS | Encounter Summary ---
:1950 Author Organization [facility] Address [address] [place] [address] Care Team Providers Name Role Phone Unavailable Primary Care Provider Unavailable Encounter Details Date Type Department Care Team Description 10/10/2020 Hospital Encounter Department of Tamara [facility], Brandon Singh M.D. Hip Replace [facility], in Status [employer] [place] [address] [place] [address] Social History Tobacco Use Types Packs/Day Years [...] or relatives? How often do you attend orthodoxy or quaker More than 4 time s per year 10/07/2020 services? Do you belong to any clubs or organizations No 10/07/2020 such as orthodoxy groups, unions, fraternal or athletic groups, or [...] place to sleep or slept in a senior living (including now)? Education Answer Date Recorded What is the highest level of school you have completed or 12 th grade 04/15/2019 the highest degree you have received? 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 ascorbic acid (VITAMIN C Take 500 mg by mouth 0 ORAL) daily. azelastine (ASTELIN) 137 Administer 1 spray 0 mcg/spray (0.1 %) nasal into each nostril 2 spray (two) times a day. Use in each nostril as directed calcium carbonate (calcium Chew 1 tablet as 0 carbonate EX) 750 mg (300 needed for mg calcium) chewable indigestion or tablet heartburn. cholecalciferol (VITAMIN Take 4,000 Units by 0 D3) 50 mcg (2,000 Unit) mouth every morning. tablet famotidine-Ca carb-mag Chew 1 tablet daily. 0 hydrox (PEPCID COMPLETE) 10-800-165 mg chewable tablet guaiFENesin (MUCINEX) 600 Take 600 mg by mouth 0 mg 12 hr tablet as needed for congestion. levothyroxine (SYNTHROID, Take 125 mcg by mouth 0 LEVOTHROID) 125 mcg tablet daily. melatonin 5 mg tablet Take 5 mg by mouth 0 every evening. mirtazapine (REMERON) 45 Take 45 mg by mouth 0 mg tablet at bedtime. naproxen sodium Take 220 mg by mouth 0 (ALEVE/ANAPROX) 220 mg as needed for pain. tablet oxybutynin (DITROPAN-XL) Take 10 mg by mouth 2 0 10 mg 24 hr tablet (two) times a day. rOPINIRole (REQUIP) 2 mg Take 2 mg by mouth at 0 07/17/2015 tablet bedtime. simvastatin (ZOCOR) 20 mg Take 1 tablet by 0 06/28 tablet mouth at bedtime. ZINC ORAL Take 50 mg by mouth 0 every morning. documented as of this encounter Plan of Treatment Not on filedocumented as of this encounter Procedures Procedure Name Priority Date/Time Associated Comments Diagnosis DX HIP AND PELVIS RAD - Routine 10/10/2020 9:51 Arthroplasty Total Results for this RIGHT 4+ VIEWS (most inpatients AM CDT Hip Replacement proced ure are in and all Status Post Right the result s outpatients) section. documented in this encounter Results DX Hip And Pelvis Right 4+ Views (10/10/2020 9:51 AM CDT) Anatomical Region Laterality Modality Lower Extremity, Pelvis, Hip, Musculoskeletal RST LOS, Right Digital Radiography Musculoskeletal ARZ LOS, Muskuloskeletal FLA LOS Specimen (Source) Anatomical Collection Method Collection Time Re ceived Time Location / / Volume Laterality 10/10/2020 10:08 AM CDT Impressions 10/10/2020 10:09 AM CDT Right ELSY. No radiographic evidence of loosening. Left ELSY. Lumbosacral fusion. Narrative 10/10/2020 10:09 AM CDT EXAM: ??DX HIP AND PELVIS RIGHT 4+ VIEWS Procedure Note Ulisses Delgado M.D. - 10/10/2020Formatt ing of this note might be different from the original. EXAM: DX HIP AND PELVIS RIGHT 4+ VIEWS IMPRESSION: Right ELSY. No radiographic evidence of l oosening. Left ELSY. Lumbosacral fusion. [facility] ANGIE PRIDE documented in this encounter Visit Diagnoses Diagnosis Arthroplasty Total Hip Replacement Statu s Post Right documented in this encounter
--- OUTSIDE RECORDS SUMMARY | 2022-02-13 12:12 | XMS_ITS | Encounter Summary ---
:1950 Author Organization [facility] Address [address] [place] [address] Care Team Providers Name Role Phone Terell Malloy MD Primary Care Provider Encounter Details Date Type Department Care Team Description 02/06/2003 PN Conversion Only [facility] [address] [address] Social History Tobacco Use Types Packs/Day Years Used Date Smoking Tobacco: Never Assessed Sex Assigned at Date Recorded Female 01/13/2021 5:27 PM CDT documented as of this encounter Plan of Treatment Not on filedocumented as of this encounter Visit Diagnoses Not on filedocumented in this encounter Care Teams Independent Jeweler Relationship Specialty Start Date End Date Terell Malloy MD PCP - General 07/01/10 11/08/12 [address] [id number] documented as of this encounter
--- OUTSIDE RECORDS SUMMARY | 2022-02-13 12:12 | XMS_ITS | Encounter Summary ---
:1950 Author Organization [facility] Address [address] [place] [address] Care Team Providers Name Role Phone Terell Malloy MD Primary Care Provider Encounter Details Date Type Department Care Team Description 08/11/2006 PN Conversion Only [facility] [address] [address] Social History Tobacco Use Types Packs/Day Years Used Date Smoking Tobacco: Never Assessed Sex Assigned at Date Recorded Female 01/13/2021 5:27 PM CDT documented as of this encounter Plan of Treatment Not on filedocumented as of this encounter Visit Diagnoses Not on filedocumented in this encounter Care Teams Direct Care Worker Relationship Specialty Start Date End Date Terell Malloy MD PCP - General 07/01/10 11/08/12 [address] [id number] documented as of this encounter
--- OUTSIDE RECORDS SUMMARY | 2022-02-13 12:12 | XMS_ITS | Encounter Summary ---
:1950 Author Organization [email or web address] Address [address] [place] [address] Care Team Providers Name Role Phone Terell Malloy MD Primary Care Provider Encounter Details Date Type Department Care Team Description 07/03/2004 PN Conversion Only [facility] 1415 ERICA PERDOMO [address] Social History Tobacco Use Types Packs/Day Years Used Date Smoking Tobacco: Never Assessed Sex Assigned at Date Recorded Female 01/13/2021 5:27 PM CDT documented as of this encounter Plan of Treatment Not on filedocumented as of this encounter Visit Diagnoses Not on filedocumented in this encounter Care Teams Aircraft Pneudraulics Repairer Relationship Specialty Start Date End Date Terell Malloy MD PCP - General 07/01/10 11/08/12 1601 ERICA PERDOMO [id number] documented as of this encounter
--- OUTSIDE RECORDS SUMMARY | 2022-02-13 12:12 | XMS_ITS | Encounter Summary ---
:1950 Author Organization [facility] Address [address] [place] [address] Care Team Providers Name Role Phone Terell Malloy MD Primary Care Provider Encounter Details Date Type Department Care Team Description 07/15/2005 PN Conversion Only [facility] 1415 [facility] . [place], [place] [address] Social History Tobacco Use Types Packs/Day Years Used Date Smoking Tobacco: Never Assessed Sex Assigned at Date Recorded Female 01/13/2021 5:27 PM CDT documented as of this encounter Plan of Treatment Not on filedocumented as of this encounter Visit Diagnoses Not on filedocumented in this encounter Care Teams Dry Wall Installations Mechanic Relationship Specialty Start Date End Date Terell Malloy MD PCP - General 07/01/10 11/08/12 1601 [place], [place] [address] documented as of this encounter
--- OUTSIDE RECORDS SUMMARY | 2022-02-13 12:12 | XMS_ITS | Encounter Summary ---
:1950 Author Organization [facility] [facility] Address [address] [place] [address] Care Team Providers Name Role Phone Terell Malloy MD Primary Care Provider Encounter Details Date Type Department Care Team Description 02/21/2002 PN Conversion Only [facility] 1515 Wilton Borges, Obstetrics/Gynecolog y 1515 [facility] . 1415 [place] [address] [place] [address] [phone] Social History Tobacco Use Types Packs/Day Years Used Date Smoking Tobacco: Never Assessed Sex Assigned at Date Recorded Female 01/13/2021 5:27 PM CDT documented as of this encounter Progress Notes Wilton Borges MD - 02/21/2002 12:01 AM CST Progress Notes signed by Wilton Borges MD at 03/08/02 1043 Author: Wilton Borges MD Service: (none) Author Type: Physician Filed: 07/17/10 1037 Note Time: 02/21/02 0001 Status: Signed Bill Checker: Wilton Borges MD (Physician) IMPRESSION: Perimenopausal, anovulation. Endometrial thickening. Small uterine leiomyomata on ultrasound. SUBJECTIVE: : 54. Referred [address] Dr. Rosado. CHIEF COMPLAINT: Irregular bleeding. HPI: The patient is a 51-1/2-year-old female referred by Dr. Rosado because of irregular uterine bleeding. The patient has had problems in the recent past with irregular periods, heavy flow and cramping. She started Depo-Provera about six years ago and this regulated her bleeding so that she had infrequent periods and only very light. She had back surgery in August of 2001 and stopped the Depo-Provera. She resumed irregular and heavy bleeding, so that she decided to start the Depo-Provera again in 11/2001. Since then she has continued to have some irregular spotting. She had an endometrial biopsy on 01/20/2002 and the pathology report revealed benign endometrium with confluent predecidual reaction of the stroma and inactive glands, consistent with exogenous progestational exposure. A pelvic ultrasound was also done on 01/27/2002 that revealed a slightly above average sized uterus with endometrium measuring 1.2 cm in thickness with heterogeneous areas suggesting multiple small fibroids. The patient was referred here for a consultation regarding a fibroid uterus and thickened endometrium. The patient was not bleeding today. She has no specific complaints. She has no hot flashes, moodiness or insomnia. She is troubled with above-average weight and seems to be gaining a little bit on Depo-Provera. She is also aware that her cholesterol is 214 with slightly undesirable LDH according to her. REVIEW OF SYSTEMS: Otherwise noncontributory. OBJECTIVE: VS: BP: 126/84. Ht: 55-1/2 in. Wt: 259 lb. GENERAL: The patient is an overweight, middle-aged female in no distress. ABDOMEN: Soft, nontender with no enlargement or liver or spleen. No inguinal findings. PELVIC: External genitalia: No lesions. Vagina: Is estrogenized. Cervix appears parous with no lesions seen. There is no bleeding. Bimanual exam: Uterus was slightly enlarged for her parity. No irregular contour could be identified. There are no adnexal masses. Perianal area is unremarkable. ASSESSMENT: 1. Perimenopausal, anovulation. 2. Endometrial thickening with associated recent anovulatory cycles. 3. Progestational exposure of endometrium without atypia or neoplasia. 4. Small uterine leiomyomata on ultrasound. PLAN: Continue Depo-Provera as prescribed. Observe for the next six to eight weeks. We should expect that her endometrium would become atrophic and thinner and that the bleeding would stop. She will return in about eight weeks to confirm this by ultrasound. If this has not occurred or abnormal bleeding persists, then endometrial curettage may be necessary. TT: CT: CHENTE:[id number] C: 02/21/02 18:25 DOCUMENT: [id number] IGERATION INSULATOR documented in this encounter Plan of Treatment Not on filedocumented as of this encounter Visit Diagnoses Not on filedocumented in this encounter Care Teams Cathead Operator Relationship Specialty Start Date End Date Terell Malloy MD PCP - General 07/01/10 11/08/12 1601 [facility] [place] [address] documented as of this encounter
--- OUTSIDE RECORDS SUMMARY | 2022-02-13 12:12 | XMS_ITS | Encounter Summary ---
:1950 Author Organization [employer] [facility] Address [address] [place] [address] Care Team Providers Name Role Phone Terell Malloy MD Primary Care Provider Encounter Details Date Type Department Care Team Description 11/22/2008 Office Visit David 1601 Orthop edics Ulisses Flanagan MD 1601 [facility] . [address] [facility] [place] [address] [place], [place] [address]561 (Wo rk) Social History Tobacco Use Types Packs/Day Years Used Date Smoking Tobacco: Never Assessed Sex Assigned at Date Recorded Female 01/13/2021 5:27 PM CDT documented as of this encounter Progress Notes Ulisses Flanagan MD - 11/22/2008 12:01 AM CDT Progress Notes signed by Ulisses Flanagan MD at 11/23/08 0938 Author: Ulisses Flanagan MD Service: (none) Author Type: Physician Filed: 07/19/10 1555 Note Time: 11/22/08 0001 Status: Signed Shirt Marker: Ulisses Flanagan MD (Physician) NAME: ACTE ALMONTE MR#: [id number] ACCT: [id number] VISIT: [id number] DICTATING CLINICIAN: Ulisses Flanagan MD CONFIRM #: [id number] LOC: 3211 CLINIC PROGRESS NOTE DATE OF VISIT: 11/22/2008 SUBJECTIVE: CHIEF COMPLAINT: Right thumb base pain. 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 She notes that this began insidiously and denies any inciting events including trauma. She reports that she has a dull achy pain of moderate severity at baseline. This may become more severe and sharp with provocative activities such as pinching and transmitter chief. She has been using a thumb-spica splint, which does improve her pain. She has a history of a GI bleed, so she has not used any anti-inflammatory medications. In addition to this, she reports a small prominence and mass in the area of the thumb CMC joint, and is concerned about it. PAST MEDICAL HISTORY: GERD, sleep apnea. PAST SURGICAL HISTORY: section, carpal tunnel, sinus surgery, cholecystectomy, back surgery, oophorectomy, knee surgery. FAMILY HISTORY: Noncontributory. SOCIAL HISTORY: She lives with her and does not smoke and reports social alcohol use. MEDICATIONS: Updated, reviewed, and reconciled in [facility] today. ADR/ALLERGIES: NO KNOWN DRUG ALLERGIES. REVIEW OF SYSTEMS: She denies any pertinent positives with regard to her general status. She does report a pertinent positive of thyroid disease with regard to her endocrine system. OBJECTIVE: The patient is a well-developed, well-nourished female who is in no acute distress. She is alert and oriented x3 and responds appropriately to the spoken word. RESPIRATIONS: Nonlabored. NEUROLOGIC: Cranial nerves 2-12 are grossly intact, and cervical motion is full. MUSCULOSKELETAL: The CMC joint on the right is somewhat prominent, but there is no adduction deformity. She is tender to palpation over the right thumb CMC joint. Nontender over the triscaphe joint or the remainder of the carpus. There is a small mass overlying the CMC joint. It is not, in and of itself, tender. The thumb itself is pink and well perfused, and distal sensibility is grossly intact. IMAGING: Plain films of the right thumb taken today suggest Eaton stage III arthritis. There is a notable ossicle radially in the area of the palpable mass. ASSESSMENT: Right thumb CMC arthritis. PLAN: I discussed this diagnosis with Ms. Almonte. I think that her pain is actually CMC arthritis and is not related to this bump that she is palpating. We discussed treatment options. She will continue using her thumb-spica splint. She cannot take anti-inflammatories given her history of a GI bleed, but will continue using Tylenol as needed. We also discussed a corticosteroid injection into the thumb CMC joint. The risks, benefits, and alternatives to this were discussed and she has decided to proceed with this. The skin overlying the right thumb CMC joint was prepped using Betadine. A mixture of 20 mg of Depo-Medrol and 0.5 mL of 0.5% Marcaine plain (1 mL total) was then injected into the thumb CMC joint with good flow of the injectate. She tolerated this well. I have also given Ms. Almonte a referral to Hand Therapy to see if they could order a neoprene sleeve thumb-spica for her. I have advised her that she may continue using the other thumb-spica as needed and continue with icing and Tylenol. I will see her back if she needs me. MCW:[id number] C: 11/22/08 14:48 CONFIRM #: [id number] documented in this encounter Plan of Treatment Not on filedocumented as of this encounter Procedures Procedure Name Priority Date/Time Associated Diagnosis Comme nts XR FINGER RT THUMB Routine 11/22/2008 1:29 PM Res ults for this 2+ VIEWS CDT procedure are i n the results section. documented in this encounter Results XR Finger Rt Thumb 3 Views (11/22/2008 1:29 PM CDT) Anatomical Region Laterality Modality Upper Extremity, Hand Other Specimen (Source) Anatomical Location Collection Method / Collectio n Time Received Time / Laterality Volume Narrative 11/22/2008 1:29 PM CDT No fracture is seen. ??Degenerative change is noted at the greater multangular-first metacarpal joint. ??No other significant abnormality is seen. Dictating LAURENCE VALLE S RADIOLOGIST Procedure Note Samantha Pickett - 06/03/2016 No fracture is seen. Degenerative change is noted at the greater multangular-first metacarpal joint. No o ther significant abnormality is seen. Dictating LAURENCE VALLE RADIOLOGIST Ulisses Flanagan MD RAD GD documented in this encounter Visit Diagnoses Not on filedocumented in this encounter Care Teams Welding Equipment Repairer Relationship Specialty Start Date End Date Terell Malloy MD PCP - General 07/01/10 11/08/12 1601 [place] [address] documented as of this encounter
--- OUTSIDE RECORDS SUMMARY | 2022-02-13 12:12 | XMS_ITS | Encounter Summary ---
:1950 Author Organization [employer] Address [address] [place] [address] Care Team Providers Name Role Phone Terell Malloy MD Primary Care Provider Encounter Details Date Type Department Care Team Description 03/29/1989 PN Conversion Only WORLD RENOWNED CHEF AND RESTAURANT OWNER 3800 CON[address] [address] Social History Tobacco Use Types Packs/Day Years Used Date Smoking Tobacco: Never Assessed Sex Assigned at Date Recorded Female 01/13/2021 5:27 PM CDT documented as of this encounter Plan of Treatment Not on filedocumented as of this encounter Visit Diagnoses Not on filedocumented in this encounter Care Teams Supervisor Corduroy Cutting Relationship Specialty Start Date End Date Terell Malloy MD PCP - General 07/01/10 11/08/12 1601 [facility] [place] [address] documented as of this encounter
--- OUTSIDE RECORDS SUMMARY | 2022-02-13 12:12 | XMS_ITS | Encounter Summary ---
:1950 Author Organization [facility] Address [address] [place] [address] Care Team Providers Name Role Phone Unavailable Primary Care Provider Unavailable Encounter Details Date Type Department Care Team Description 02/06/2021 Orders Only [facility] PCP [facility] Sa bonnie Chase M.D. [address] [place], [place] [phone] (Wo rk) Social History Tobacco Use Types [...] or relatives? How often do you attend methodist or mandaeism More than 4 time s per year 10/07/2020 services? Do you belong to any clubs or organizations No 10/07/2020 such as methodist groups, unions, fraternal or athletic groups, or [...] place to sleep or slept in a correction (including now)? Education Answer Date Recorded What is the highest level of school you have completed or 12 th grade 04/15/2019 the highest degree you have received? 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
--- OUTSIDE RECORDS SUMMARY | 2022-02-13 12:12 | XMS_ITS | Encounter Summary ---
:1950 Author Organization [facility] Address [address] [place] [address] Care Team Providers Name Role Phone Unavailable Primary Care Provider Unavailable Reason for Visit Reason Comments Communication Dental abx Encounter Details Date Type Department Care Team Description 01/06/2021 Clinical Communication Department of Suhas Brown (Dental Orthopedic Surgery Guilherme Baker abx) in [place] [address] [address] [place], [place] [address] [place] [phone] [employer], [place] [phone] (Work) [phone] Social History Tobacco Use Types Packs/Day Years [...] or relatives? How often do you attend mormon or yazidism More than 4 time s per year 10/07/2020 services? Do you belong to any clubs or organizations No 10/07/2020 such as mormon groups, unions, fraternal or athletic groups, or [...] place to sleep or slept in a group home (including now)? Education Answer Date Recorded What is the highest level of school you have completed or 12 th grade 04/15/2019 the highest degree you have received? Sex Assigned at Date Recorded Female 03/15/2018 11:32 AM HEALTH INFORMATION INTERNSHIP documented as of this encounter Miscellaneous Notes Telephone Encounter - Nory Cunha - 01/06/2021 11:33 AM CDT Patient had right hip surgery in June. Needs dental abx. Send to [facility] in [place] as noted in chart. Thank you. documented in this encounter Plan of Treatment Not on filedocumented as of this encounter Visit Diagnoses Not on filedocumented in this encounter
--- OUTSIDE RECORDS SUMMARY | 2022-02-13 12:12 | XMS_ITS | Encounter Summary ---
:1950 Author Organization [facility] Address [address] [place] [address] Care Team Providers Name Role Phone Unavailable Primary Care Provider Unavailable Reason for Referral Physical Therapy (Routine) - Closed Specialty Diagnoses / Procedures Referred By Contact Refer red To Contact Diagnoses Arthroplasty Total Hip Replacement Status Post Right Pain Knee Right Sneha Moreno P.A.-C., M.S. [address] [place] [phone] Referral ID Status Reason Start Date Expiration Visits Visits Date Requested Authorized [id number] Closed Patient 10/10/2020 10/10/2021 99 99 Preference Reason for Visit Reason Comments Post-op Outpatient (Routine) - Closed Specialty Diagnoses / Procedures Referred By Contact Refer red To Contact Orthopedic Surgery Diagnoses Arthroplasty Total Hip Replacement Status Post Right Tamara Whittington [place] M.D. 200 [place] [address] Referral ID Status Reason Start Date Expiration Date Visits Requ ested Visits Authorized [id number] Closed 07/18/2020 07/18/2021 1 1 Encounter Details Date Type Department Care Team Description 10/10/2020 Office Visit Department of Suhas Brown I., Pain Knee Right (Primary Dx); Orthopedic Surgery in [place] Arthroplasty Total Hip Replacement Statu s Post Right [place], [place] [address] [place] [address] [place] [phone] Social History Tobacco Use Types Packs/Day Years [...] or relatives? How often do you attend jewish or sabianist More than 4 time s per year 10/07/2020 services? Do you belong to any clubs or organizations No 10/07/2020 such as jewish groups, unions, fraternal or athletic groups, or [...] place to sleep or slept in a usp (including now)? Education Answer Date Recorded What is the highest level of school you have completed or 12 th grade 04/15/2019 the highest degree you have received? Sex Assigned at Date Recorded Female 03/15/2018 11:32 AM VEHICLE REFINISHER documented as of this encounter Progress Notes Suhas Brown M.D. - 10/10/2020 10:45 AM CDT History of present illness Patient returns today 3 months out from a right total hip arthroplasty. There have been no major issues. Much better than before surgery. Very happy overall. PHYSICAL EXAMINATION Musculoskeletal: No major limp. Painless range of motion about the hip. Good abductor strength. IMAGING STUDIES Xrays show a well-fixed, well-aligned total hip on the right. There is no evidence of loosening or wear. Patient is doing quite well. No major issues. I do think she would benefit from some physical therapy targeting hip abduction strengthening and gait retraining exercises. We have given her prescriptionfor that. We will ask the patient to return at regular intervals according to our total joint registry. All questions answered. IMPRESSION/REPORT/PLAN 1. Satisfactory recheck, status post right total hip arthroplasty documented in this encounter Plan of Treatment Not on filedocumented as of this encounter Visit Diagnoses Diagnosis Pain Knee Right - Primary Arthroplasty Total Hip Replacement Statu s Post Right documented in this encounter
--- OUTSIDE RECORDS SUMMARY | 2022-02-13 12:12 | XMS_ITS | Encounter Summary ---
:1950 Author Organization [facility] Address [address] [place] [address] Care Team Providers Name Role Phone Unavailable Primary Care Provider Unavailable Encounter Details Date Type Department Care Team Description 08/01/2020 Clinical Communication Department of Tamara Whittington, Orthopedic Surgery in [place], [place] [address] [place] [address] Social History Tobacco Use Types Packs/Day Years [...] or relatives? How often do you attend holiness or christian More than 4 time s per year 10/07/2020 services? Do you belong to any clubs or organizations No 10/07/2020 such as holiness groups, unions, fraternal or athletic groups, or [...] place to sleep or slept in a detention (including now)? Education Answer Date Recorded What is the highest level of school you have completed or 12 th grade 04/15/2019 the highest degree you have received? Sex Assigned at Date Recorded Female 03/15/2018 11:32 AM JUMPBASTING LINING BASTER documented as of this encounter Miscellaneous Notes Telephone Encounter - Tamara Whittington M.D. - 08/01/2020 1:40 PM CDT I gave Ms. Caba a phone call this afternoon to check in to see how she is doing 3 weeks status post total hip arthroplasty. She states that she is overall doing well. Her pain is minimal at this time. She is no longer taking narcotic medication and is only occasionally taking Tylenol. She continues to abide by the partial weight-bearing restrictions with a walker. She knows to continue to be partial weight-bearing for the next 2-3 weeks after which time she may progress to weight-bearing as tolerated with a walker followed by a cane. Her incision has healed up well. She has been taking Lovenox daily for DVT prophylaxis. All other questions and concerns were answered. documented in this encounter Plan of Treatment Not on filedocumented as of this encounter Visit Diagnoses Not on filedocumented in this encounter
--- OUTSIDE RECORDS SUMMARY | 2022-02-13 12:12 | XMS_ITS | Encounter Summary ---
:1950 Author Organization [facility] Address [address] [place] [address] Care Team Providers Name Role Phone Terell Malloy MD Primary Care Provider Encounter Details Date Type Department Care Team Description 04/27/2003 PN Conversion Only BAG MAKING MACHINE OPERATOR [address] Juan Singh D, [address] MESSINA MD [place], [place] [address] [address] [place], [place] [id number] Social History Tobacco Use Types Packs/Day Years Used Date Smoking Tobacco: Never Assessed Sex Assigned at Date Recorded Female 01/13/2021 5:27 PM CDT documented as of this encounter Plan of Treatment Not on filedocumented as of this encounter Visit Diagnoses Not on filedocumented in this encounter Care Teams Storeroom Clerk Relationship Specialty Start Date End Date Terell Malloy MD PCP - General 07/01/10 11/08/12 1601 [facility] [place], [place] [address] documented as of this encounter
--- OUTSIDE RECORDS SUMMARY | 2022-02-13 12:12 | XMS_ITS | Encounter Summary ---
:1950 Author Organization [facility] Address [address] [address] Care Team Providers Name Role Phone Unassigned, Provider Primary Care Provider Unavailable Reason for Visit Reason Comments POLYPHARMACY REVIEW Encounter Details Date Type Department Care Team Description 07/03/2008 Office Visit [facility] Pharmac y POLYPHARMACY REVIEW [address] [place] [address] Social History Tobacco Use Types Packs/Day Years Used Date Smoking Tobacco: Never Assessed Sex Assigned at Date Recorded Female 01/13/2021 5:27 PM CDT documented as of this encounter Last Filed Vital Signs Vital Sign Reading Time Taken Comments Blood Pressure 118/78 07/03/2008 3:51 PM CDT Pulse - - Temperature - - Respiratory Rate - - Oxygen Saturation - - Inhaled Oxygen Concentration - - Weight - - Height - - Body Mass Index - - documented in this encounter Patient Instructions Patient InstructionsAmanda Benson, PharmD - 07/03/2008 3:51 PM CDT (1) Take the iron with either a little orange juice or your vitamin c tablet. This will enhance the absorption as iron loves to be in an acidic environment (2) Take the levothyroxine on empty stomach 1st thing in the morning then wait at least 30 minutes and take your other pills and food (3) Talk with your doctor about your PROTONIX: This medication will be removed from the formulary orcovered medication list on September 26. The covered alternatives include: Omeprazole and Prevacid (4) Wellbutrin XL 300mg- you may want to talk with your doctor about trying a lower dosage before considering stopping the medication all together. That way you can assess your symptoms on the lower dosage to determine if you want to try a drug holiday. (5) I will send you some information on asthma action plans in the mail. How to control things that may make your asthma worse: TOBACCO SMOKE -If you smoke, quit. Ask family members to quit smoking too -Do not allow smoking in your home, car, or around you -Be sure no one smokes at a child's daycare center or school DUST MITES Many people who have asthma are allergic to dust mites. Dust mites are like tiny bugs you cannot seethat live in cloth or carpet. Things that will help the most: -Encase your mattress in a special dust-mite proof cover -Encase your pillow in a special dust-mite proof cover or wash pillow each week in hot water (must be hotter than 130 F) -Wash the sheets and blankets on your bed each week in hot water Other things that can help: -Reduce indoor humidity to or below 60 percent - Try not to sleep or lie on cloth covered cushions or furniture -Remove carpets from your bedroom and those laid on concrete, if you can -Keep stuffed toys out of the bed, or wash toys weekly in hot water. Placing toys weekly in a dryer or freezer may help. Prolonged exposure to dry heat or freezing can kill mites but does not remove allergen. ANIMAL DANDER Some people are allergic to the flakes of skin or dried saliva from animals. The best thing to do is to keep pets with fur or hair out of the home. If you can't keep the pet outdoors, then: -Keep the pet out of your bedroom and keep the bedroom door closed. -Remove carpets and furniture covered with cloth from your home. If that is not possible, keep the pet out of the rooms where these are. COCKROACH Many people with asthma are allergic to the dried droppings and remains of cockroaches. -Keep all food out of your bedroom -Keep food and garbage in closed containers (never keep food out) -Use poison baits, powders, gels, or paste. You can also use traps. -If a spray is used to kill roaches, stay out of the room until the odor goes away. VACUUM CLEANING -Try to get someone else to vacuum for you once or twice a week, if you can. Stay out of rooms whilethey are being vacuumed and for a short while afterward. -If you vacuum, use a dust mask, a central yarn cleaner with a collection bag outside the home, or a vacuum yarn cleaner with a HEPA filter or a double layered bag INDOOR MOLD -Fix leaking faucets, pipes, or other sources of water -Clean moldy surfaces -Dehumidify basements if possible POLLEN AND OUTDOOR MOLD During your allergy season -Try to keep your windows closed -If possible, stay indoors with windows closed during the midday and afternoon. Pollen and some moldcounts are the highest at that time. -Ask a doctor whether you need to take or increase anti-inflammatory medicine before your allergy season starts. SMOKE, STRONG ODOR, AND SPRAYS -If possible, do not use a wood-burning stove, kerosene heater, fireplace, unvented gas stove, or heater -Try to stay away from strong odors and sprays, such as perfume, talcum powder, hair spray, paints, new carpet, or particle board EXERCISE OR SPORTS -You should be able to be active without symptoms. See your doctor if you have asthma symptoms when you are active. -Warm up for a period before you exercise -Check the air quality index and try not to work or play hard outside when the air pollution or pollen levels are high Please call me if you have additional questions or concerns. Yasir Newman,[facility] [phone] documented in this encounter Progress Notes Amanda Benson PharmD - 07/03/2008 4:55 PM CDT S Mindi Marcial Hendrixen was referred to Medication Therapy Management Services by [facility] for medication review/education. Patient has a list of current medications that is brought to clinic for review. Patient reports compliance with medications. Patient denies side effects of medications. Patient would like medications reviewed to ensure that there are no interactions and that all themedications are compatible. Patient would like medications reviewed to make sure that there are no interactions and that medications are appropriate for dose/ indication. Recently started back on iron due to anemia. Was told in the past by GI doc who did her colonoscopy that she would be on iron for the rest of her life. She is on TID iron but does admit that the 2nd dose of the day is difficult to remember. She denies any problems with constipation. Has hiatal hernia and GERD which she uses Ranitidine and Protonix to control. Works well. She had previsously been on Aciphex. No hx of GI bleeds to her knowledge. Denies muscle aches or pains, yellowing of skin or eyes,nausea vomiting or unusual fatigue.She has brought recent lab owrk which will be scannd to [facility] She also is questioning her use of Wellbutrin. She had some stress in life from her job and family like and she started on wellbutrin Xl. She feels like many of those problems have resolved and she questions if she needsthe med. Feels generally very well on the medication. No drowsiness or dizziness. Asthma management: Current symptoms: none. Precipitating factors: URI. Current status: stable Treatment modality employed to this point : inhaled beta-adrenergic agonists and inhaled corticosteroids O ALLERGIES: No Known Allergies. PROBLEM LIST: HLD, HTN, Anemia, Depression, Asthma, Hypothyroidism, History Tobacco Use Not on file ASPIRIN USE: No (due to anemia in the past requiring transfusion) BP 118/78 There is no height or weight on file to calculate BMI. A BP goal: <140/90 Pt is at goal. LDL goal: <130 Pt is not at goal. Meds were added and she will have repeat blood work in June. Total drug therapy problem identified and to be resolved: 3 1. Medical condition and drug therapy involved: Wellbutrin On potentiall unnecessary drug therapy: condition resolved (?) 2. Medical condition and drug therapy involved: Protonix/ranitidine and Iron Drug therapy problem: clinically relevant drug interaction present 3. Medical condition and drug therapy involved: Levothyroxine and MVI, Calcium and Iron Drug therapy problem: clinically relevant drug interaction present P (1) I have recommended that Mindi Caba talk with her PCP Dr. Malloy about considering a trial of a lower dosage (150mg) of the Wellbutrin XL so she can assess if her symptoms worsen, or stay the same on a lower dosage. If she does well on lower dosage could consider a taper to see how she does off the medication. She will have an appt in late June/early July and she janice ldisucss with him at that time. (2) Protonix- (a) This will not be covered by her insurnance starting in September. I will send not to PCP. Covered meds include Omeprazole and PRevacid (lansoprazole) (b) iron absorption is reduced in presence of acid reducing med. I have recommended she take her evening dose with the Vitamin C tablet she takes and her other doses with 1/2 cup of orange juice to enhance the absorption (3) Levothyroxine- take in tanner AM away from her vitamins and supplemetnes to provide more consistentabsorption (4) Asthma-will mail some patient info on astham and asthma action plans that she can discuss with her PCP (5) Patient to follow up with Medication Therapy Management program in 3 months Mindi Caba is enrolled in the [facility] from today until 05/26/09. Mindi Caba will follow up with [facility] pharmacy program every 1 to 3 months based on labs, vitals and pharmacist recommendation. If she fails 3 appointments she will be disenrolled. Participation agreement is signed and patient is provided with a copy of this agreement and one copy is scanned to her MR. Patient Education: discussed medication dosage, usage, side effects, goal of treatment. Updated [facility] med list and reviewed medications including indications with patient. Total time spent with patient 60 minutes. Amanda Benson Pharm D,[facility] Clinical pharmacist Medication Therapy Management Program documented in this encounter Plan of Treatment Not on filedocumented as of this encounter Visit Diagnoses Diagnosis Polypharmacy - Primary Issue of repeat prescriptions documented in this encounter Care Teams [employer] Relationship Specialty Start Date End Date Unassigned, Provider PCP - General 03/06/00 06/30/[address] [place] [id number] documented as of this encounter
--- OUTSIDE RECORDS SUMMARY | 2022-02-13 12:12 | XMS_ITS | Encounter Summary ---
:1950 Author Organization [facility] Address [address] [place] [address] Care Team Providers Name Role Phone Unavailable Primary Care Provider Unavailable Reason for Visit Auth/Cert Specialty Diagnoses / Procedures Referred By Contact Refer red To Contact Diagnoses Primary Osteoarthritis Hip Right right hip osteoarthritis Procedures ARTHROPLASTY REPLACEMENT TOTAL HIP Referral ID Status Reason Start Date Expiration Date Visits Requ ested Visits Authorized [id number] 1 1 Encounter Details Date Type Department Care Team Description 07/11/2020 - Hospital Encounter [facility] Suhas Brown Pain Hip Right (Primary Dx); 07/12/2020 Hospital, Don Baker M.D. Primary Osteoarthritis Hip Right; [place], [facility] [address] [place] [address] Aftercare Total Hip Arthroplasty Building, [place], [place] Floor [phone] [address] [facility] [phone] [place], [place] (Work) [phone] Social History Tobacco Use Types Packs/Day Years [...] or relatives? How often do you attend samaritan or jain More than 4 time s per year 10/07/2020 services? Do you belong to any clubs or organizations No 10/07/2020 such as [employer]ar[employer] groups, unions, fraternal or athletic groups, or [...] place to sleep or slept in a [facility] (including now)? Education Answer Date Recorded What is the highest level of school you have completed or 12 th grade 04/15/2019 the highest degree you have received? Sex Assigned at Date Recorded Female 03/15/2018 11:32 AM ONCOLOGY REP documented as of this encounter Last Filed [...] Mass Index 44.24 07/11/2020 7:37 AM CDT documented in this encounter Discharge Summaries Tamara Whittington M.D. - 07/12/2020 8:34 AM CDT DISCHARGE SUMMARY BRIEF OVERVIEW Hospital: [facility] Discharge Provider: Suhas Brown M.D. Primary Team: [facility] Orthopedic Surgery - Kevin No primary care provider on file. Primary Care Provider Phone Number: None Primary Care Provider Fax Number: None Other Providers: None Admission Date: 07/11/2020 Discharge Date: 07/12/2020 PRINCIPAL DIAGNOSIS Pain Hip Right SECONDARY DIAGNOSES Active Ambulatory Problems Diagnosis Date Noted ??? Other Specified Arthritis Left Knee 08/11/2017 ??? Morbid Severe Obesity Due To Excess Calories (HCC) 11/06/2015 ??? Restless Leg Syndrome 12/08/2017 ??? Sleep Apnea 05/09/2009 ??? Hypothyroidism 08/09/2008 ??? Surgery Bariatric Status Post 05/14/2009 ??? Primary Osteoarthritis Knee Bilateral 03/30/2012 ??? Gastroesophageal Reflux Disease NOS 12/08/2017 ??? Asthma Mild Intermittent (HCC) 12/08/2017 ??? Fusion Lumbar Spine Status Post 12/08/2017 ??? Arthritis Knee 12/09/2017 Resolved Ambulatory Problems Diagnosis Date Noted ??? No Resolved Ambulatory Problems Past Medical History: Diagnosis Date ??? Anemia ??? Apnea Sleep Obstructive ??? Arthritis Inflammatory (HCC) ??? Asthma NOS ??? Blood Transfusion No Diagnosis 2005 ??? Cataract 08/2018 ??? Depressive Disorder ??? Dysfunction Thyroid ??? Embolus Pulmonary (HCC) 2015 ??? Gallbladder Disorder ??? Headache Unspecified ??? Hyperlipidemia ??? Other Injury Of Unspecified Body Region ??? Thromboembolism NOS Surgery Information This Encounter Past Procedures (07/13/2019 to Today) Date Procedures Providers Location 07/11/2020 ARTHROPLASTY REPLACEMENT TOTAL HIP. Suhas Brown M.D.Barras, Laurel A, M.D.Edquist, Leah M, P.Samantha.-Betsey., M.S. RST ROEI OR DISCHARGE DISPOSITION Home or Self Care [1] ACTIVE ISSUES REQUIRING FOLLOW UP None OUTPATIENT FOLLOW UP Scheduled Appointments 07/12/2020 9:00 AM PMR OT STUDENT 02 RO OT Occupational Therapy 07/12/2020 10:30 AM Nora Crespo, P.T.ABrayan Physical Therapy For appointment details refer to your Patient Appointment Guide. TEST RESULTS PENDING AT DISCHARGE Pending Labs Order Current Status Bacteria Culture, Donor In process MBC Tissue Donor Screen Test In process DETAILS OF HOSPITAL STAY REASON FOR ADMISSION Primary Osteoarthritis Hip Right Pain Hip Right HOSPITAL COURSE On the day of admission, the patient was taken to the operating room by Dr. Brown for right total hip arthroplasty. The intraoperative as well as the immediate postoperative course were uncomplicated. The patient was transferred from the PACU to the general orthopedic floor where she had an uneventful recovery. At the time of dismissal the patient was ambulating independently and tolerating an oral diet. She was voiding spontaneously. She had optimal pain control with oral medications. Her incision remained clean, dry and intact. She then met criteria for dismissal and was dismissed home. CONSULTS ORDERED DURING THIS ADMISSION None CONDITION AT DISCHARGE stable Discharge instructions were provided to the patient and caregiver(s). documented in this encounter Medications at Time of Discharge Medication Sig Dispensed Refills Start Date End Date ascorbic acid (VITAMIN C Take 500 mg by mouth 0 ORAL) daily. azelastine (ASTELIN) 137 Administer 1 spray 0 mcg/spray (0.1 %) nasal into each nostril 2 spray (two) times a day. Use in each nostril as directed cholecalciferol (VITAMIN Take 4,000 Units by 0 D3) 50 mcg (2,000 Unit) mouth every morning. tablet famotidine-Ca carb-mag Chew 1 tablet daily. 0 hydrox (PEPCID COMPLETE) 10-800-165 mg chewable tablet levothyroxine Take 125 mcg by 0 (SYNTHROID, LEVOTHROID) mouth daily. 125 mcg tablet melatonin 5 mg tablet Take 5 mg by mouth 0 every evening. mirtazapine (REMERON) 45 Take 45 mg by mouth 0 mg tablet at bedtime. oxybutynin (DITROPAN-XL) Take 10 mg by mouth 0 10 mg 24 hr tablet 2 (two) times a day. rOPINIRole (REQUIP) 2 mg Take 2 mg by mouth 0 tablet at bedtime. simvastatin (ZOCOR) 20 Take 1 tablet by 0 016 mg tablet mouth at bedtime. ZINC ORAL Take 50 mg by mouth 0 every morning. albuterol (PROVENTIL Inhale 2 puffs as 0 06/30/19 15 HFA,VENTOLIN HFA) 90 needed for shortness mcg/actuation inhaler of breath. calcium carbonate Chew 1 tablet as 0 (calcium carbonate EX) needed for 750 mg (300 mg calcium) indigestion or chewable tablet heartburn. guaiFENesin (MUCINEX) Take 600 mg by mouth 0 600 mg 12 hr tablet as needed for congestion. cefadroxil (DURICEF) 500 Take 1 capsule (500 28 capsule 0 07/26/2020 mg capsuleIndications: mg total) by mouth 2 Prophylaxis, surgical (two) times a day for 28 doses Indications: Prophylaxis, surgical. Take until prescription complete ondansetron ODT Take 1 tablet (4 mg 15 tablet 0 07/12/2020 08/11/2020 (ZOFRAN-ODT) 4 mg total) by mouth disintegrating tablet every 8 (eight) hours as needed for nausea or vomiting. acetaminophen (TYLENOL) Take 2 tablets 0 07/13/19 21 10/09/2020 500 mg tablet (1,000 mg total) by mouth every 6 (six) hours as needed for pain. enoxaparin (LOVENOX) 30 Inject 0.3 mL (30 mg 58 Syringe 0 10/09/2020 mg/0.3 mL injection total) under the skin 2 (two) times a day. Take for 30 days to prevent blood clots. Last dose on 08/10/2020. oxyCODONE (ROXICODONE) 5 Take 1 tablet (5 mg 10 tablet 0 10/09/2020 mg immediate release total) by mouth tabletIndications: Acute every 3 (three) Pain Exception hours as needed for severe pain or score 7-10 of 10 Indication: Acute Pain Exception. sennosides-docusate Take 1 tablet by 0 07/12/2020 10/09/2020 sodium (SENOKOT-S) mouth 2 (two) times 8.6-50 mg per tablet a day. Take while taking narcotic medication to prevent constipation. May substitute with other acwn-fox-hplmndm stool softeners. traMADoL (ULTRAM) 50 mg Take 1 tablet (50 mg 20 tablet 0 10/09/2020 tabletIndications: Acute total) by mouth Pain Exception every 6 (six) hours as needed for moderate pain or score 4-6 of 10 Indications: Acute Pain Exception. documented as of this encounter Progress Notes Andriy Isidro P.T., Shruthi.P.T., A.T.C. - 07/12/2020 12:58 PM CDT 07/12/20 1258 Plan Inpatient PT Received On Date 07/12/20 Requires Inpatient Follow-Up No Plan Discontinue PT PT Plan Comments Patient discharged to home, goals met, and equipment issued Nora Crespo P.T.A. - 07/12/2020 11:02 AM CDT Physical Therapy Inpatient Treatment Note SUBJECTIVE Patient's Name: Mindi Caba Referring/Attending: Suhas Brown M.D. Medical Diagnosis: Primary Osteoarthritis Hip Right [M16.11] Pain Hip Right [M25.551] Reason for Referral: PT Evaluate and Treat Physical therapy evaluate and treat orthopedic rehab Onset Date: 07/11/20 Payor: MEDICARE / Plan: MEDICARE A AND B / Product Type: Medicare / History of Present Illness: Status post right ELSY, 50% partial weight-bearing Patient/Caregiver Goals: Return home with assistance of spouse Patient Comments: Patient reports feeling okay and ready to progress physical therapy. Precautions Weight Bearing Status: 50% partial weight-bearing right lower extremity Other Precautions: Total hip precautions Fall Risk (65 and older) Fall in the last 12 months: No Are you fearful of falling?: Yes OBJECTIVE Treatment consisted of: Bed Mobility - Supine to Sit # of Assistants: 1 Level of Assistance: Supervision/Set-up Device: Head of bed elevated Cuing: Verbal Comments: Patient able to manage right lower extremity independently without assistive device. Patient's head of bed slightly elevated patient has a bed at home with the head elevating. Bed Mobility - Sit to Supine # of Assistants: 1 Level of Assistance: Modified Independent Device: Head of bed elevated Cuing: Verbal Sit to Stand Transfers # of Assistants: 1 Transfer Surface: Chair, Bed Transfer Equipment: Gait belt, Front wheeled walker Level of Assistance: Supervision/set-up Comments: Verbal cues for hand placement sent offload right lower extremity. Stand to Sit Transfers # of Assistants: 1 Transfer Surface: Chair, Bed Transfer Equipment: Gait belt, Front wheeled walker Level of Assistance: Supervision/set-up Assessment/Delivery: Instructed Comments: Verbal cues to make sure she turns completely in backs up to the bed before sitting Car Transfers Comments: Verbally reviewed transfer in and out of SUV. Gait Assessment/Training Distance (m): 28 m Surface: Even, Smooth/hard Device: Gait belt, Front-wheeled walker # of Assistants: 1 Level of Assistance: Supervision/Set-up Quality/Pattern: Step-to, Decreased stance time R Stability: Good Assessment of Gait: Patient ambulating with step to gait sequence with decreased stance time on right lower extremity. Patient's toes bumping into right side of walker several times. Training/Intervention: Patient ambulated with her current narrow walker and with wider walker. Patient able to consistently keep to partial weight-bearing with less effort with wider walker. Response: No adverse events. Patient able to follow verbal cues. Stairs/Curb # Stairs: 3 Rails: 1 Device: Single point cane # of Assistants: 1 Level of Assistance: Supervision/Set-up Stair Navigation Pattern-Ascending: Step-to pattern Stair Navigation Lead Foot-Ascending: Left Stair Navigation Pattern-Descending: Step-to pattern Stair Navigation Lead Foot-Descending: Right Stairs Comments: Patient felt comfortable with stairs and felt she would be able to instruct her how to assist her. Patient has had previous hip surgeries. Exercise - Protocol Total Joints Exercise: Total hip - posterior Total Joints Exercise Comments: Reviewed ankle pumps quad sets. Patient performed long arc quads. Briefly reviewed standing exercises and instructed patient to start them when she is okay to be full weight-bearing verses 4 weeks postop. Patient was left in bedside chair at end of session with call light in reach, all needs met and questions answered. Contact monitoring: PPE used during therapy: Therapist was wearing the following PPE throughout entire session: surgicalmask and eye protection Patient was wearing a mask during therapy session: no Outcome Measures [facility] Inpatient Short Form: AM-[facility] Basic Mobility (V.2) How much help from another person do you currently need???If the patient hasn't done an activity recently, how much help from another person do you think he/she would need if he/she tried? 1. Turning from your back to your side while in a flat bed without using bedrails?: None 2. Moving from lying on your back to sitting on the side of a flat bed without using bedrails?: None 3. Moving to and from a bed to a chair (including a wheelchair)?: A Little 4. Standing up from a chair using your arms (e.g., wheelchair, or bedside chair)?: None 5. To walk in hospital room?: A Little 6. Climbing 3-5 steps with a railing?: A Little AM-[facility] Basic Mobility (V.2) Raw Score: 21 AM-P[facility] Basic Mobility (V.2) Standardized Score: 45.55 Interpretation: Clinicians answer the AM-[facility] Inpatient Short Form based on observed patient activityand/or clinical judgement (ie. patient can be scored without physically performing each activity) According to scoring guidelines: Those going to home had an average score of 20.1 Those going home with home care had an average score of 17.9 Those going to SNF had an average score of 14 Those going to IRF had an average score of 13.6 Those going to a LTAC had an average score of 11.5 Assessment Level of Care Recommended - PT: Intermittent supervision Equipment Recommended - PT: Front-wheeled walker Barriers to Discharge Home: None From a physical therapy perspective, the level of care above has been recommended for Ms. Caba after hospital discharge. This level of care is based on her functional abilities during today's session. This may change throughout the hospital course and will be updated as appropriate. Clinical Impression of today's session: Patient actively participated in physical therapy session for 10 days, gait with front wheeled walker and navigation of stairs. Reviewed ankle pumps quad sets long arc quad sets and progression to standing exercises when full weight- bearing. Patient has met all of her hospital physical therapy goals. Rehab potential: Ms. Caba has potential to achieve established physical therapy goals within thetime frame outlined below. Progress: Progressing toward goals Functional Goals and Timeframes: PT Inpatient Goals PT Goal #1: Patient will ambulate 25 meters using a step to gait pattern with supervision or minimalassistance using least restrictive gait aid in order to be a household ambulator. PT Goal #1 Status: Achieved PT Goal #2: Patient will demonstrate an effective stair pattern using hand rails and/or least restrictive gait device with supervision or minimal assistance x1 in order to enter their home and access the bathroom. PT Goal #2 Status: Achieved PT Goal #3 Status: Achieved PT Goal #4: Patient will demonstrate understanding of home exercise program to be performed daily inorder to improve rehab potential and independence. PT Goal #4 Status: Achieved Plan Treatment Plan: Plan: Discontinue PT PT Frequency: Requires Inpatient Follow-Up: No Treatment interventions may include: WAGON DRILL OPERATOR Visit Trackin Billing: Time Spent with Patient Therapeutic Activity (min): 32 min Total Timed Units (min): 32 min Total Treatment Time (min): 32 min Nora Crespo PBrayanT.Tom Tamara Whittington M.D. - 07/12/2020 7:53 AM CDT Orthopedic Service: [facility] Admission Day: 07/11/2020 Hospital Day: 0 Date of Most Recent Surgery: 07/11/2020 SUBJECTIVE Ms. Caba is overall doing great this morning. Her pain is well controlled. She denies any nausea/vomiting. She is tolerating oral intake well. She worked well with physical therapy yesterday, and has been able to mobilize the bathroom multiple times overnight. She denies any chest pain, shortnessof breath, lightheadedness, numbness/paresthesias. OBJECTIVE Vitals: 07/12/20 0354 07/12/20 0521 07/12/20 0526 07/12/20 06 BP: 134/71 Patient Position: Semi-recumbent Pulse: 68 Heart Rate: Temp: 36.7 ??C Resp: Height: Weight: SpO2: 97% TempSrc: Oral Pain Score: 7 5 - Moderate pain 4 Pain Location: Knee Knee PHYSICAL EXAMINATION General: Alert, no acute distress. Oriented, follows commands Wound: Dressing is clean, dry, intact - taken down this morning. Incision clean/dry/intact with surrounding ecchymosis. New Aquacel dressing placed over incision. Musculoskeletal: Sensation intact over the DP/SP/T/saphenous/sural nerve distribution. Toes warm. Able to fire TA/EHL/GS/peroneals. DP/PT pulses 2+. Drains(s): none LABORATORY STUDIES (past 24 hours) No results found for this or any previous visit (from the past 24 hour(s)). IMAGING STUDIES (past 24 hours) Dx Hip Right 1 View Result Date: 07/11/2020 Impression: Image obtained during a right ELSY. Dx Hip Right 2-3 Views Result Date: 07/11/2020 Impression: Right ELSY. Negative for PO purposes. ASSESSMENT / PLAN Surgical Diagnosis/Procedure(s) 1. Status post right total hip arthroplasty on 07/11/[address] Brown Active Issues # Hypertension - p.r.n. hydralazine for systolic blood pressure greater than 180 Comorbidities Present on Admission Active Ambulatory Problems Diagnosis Date Noted ??? Other Specified Arthritis Left Knee 08/11/2017 ??? Morbid Severe Obesity Due To Excess Calories (HCC) 11/06/2015 ??? Restless Leg Syndrome 12/08/2017 ??? Sleep Apnea 05/09/2009 ??? Hypothyroidism 08/09/2008 ??? Surgery Bariatric Status Post 05/14/2009 ??? Primary Osteoarthritis Knee Bilateral 03/30/2012 ??? Gastroesophageal Reflux Disease NOS 12/08/2017 ??? Asthma Mild Intermittent (HCC) 12/08/2017 ??? Fusion Lumbar Spine Status Post 12/08/2017 ??? Arthritis Knee 12/09/2017 Resolved Ambulatory Problems Diagnosis Date Noted ??? No Resolved Ambulatory Problems Past Medical History: Diagnosis Date ??? Anemia ??? Apnea Sleep Obstructive ??? Arthritis Inflammatory (HCC) ??? Asthma NOS ??? Blood Transfusion No Diagnosis 2005 ??? Cataract 08/2018 ??? Depressive Disorder ??? Dysfunction Thyroid ??? Embolus Pulmonary (HCC) 2015 ??? Gallbladder Disorder ??? Headache Unspecified ??? Hyperlipidemia ??? Other Injury Of Unspecified Body Region ??? Thromboembolism NOS Ms. Caba is overall doing well postoperatively. Her pain is well controlled. She does have a history of postoperative nausea. However, she denies any nausea at this time. Of note, she was hypertensive in the PACU. PRN hydralazine has been ordered in case her systolic blood pressure is greater than 180. Her blood pressures have since normalized, and she has not required any hydralazine dosing. She will continue to work with Physical therapy today. Anticipate discharge home later today. PLAN: ?? Activity: 50% weight-bearing right lower extremity, physical therapy to help mobilize ?? Antibiotics: sheree-operative Cefazolin x 24 hours, followed by Duricef x 14 days ?? Blood: hemodynamically stable, currently asymptomatic ?? Brace: none ?? Cultures: none ?? Diet: general diet ?? Drains: none ?? DVT Prophylaxis: SCD, early mobilization and enoxaparin 30 mg subQ b.i.d. for 30 days ?? Pain: Tylenol, tramadol, oxycodone ?? Urinary: no urinary catheter ?? Disposition: Anticipate discharge to home today For any questions or concerns from 6 am until 6 pm, please page Kevin jung at [phone]. For urgent matters from 6 pm until 6 am, please page [facility] [phone]. Tamara Whittington M.D. - 07/11/2020 2:16 PM CDT Orthopedic Service: [facility] Admission Day: 07/11/2020 Hospital Day: 0 Date of Most Recent Surgery: 07/11/2020 SUBJECTIVE Ms. Caba is overall doing well upon postoperative check. I evaluated her at bedside after beingtransferred up to the general orthopedic floor from the postanesthesia care unit. Her pain is well controlled at this time. She denies any nausea/vomiting. No complaints at this time. OBJECTIVE Vitals: 07/11/20 1335 07/11/20 1336 07/11/20 1340 07/11/20 1345 BP: (!) 179/96 Patient Position: Pulse: Heart Rate: 76 81 83 68 Temp: Resp: Height: Weight: SpO2: 100% TempSrc: Pain Score: PHYSICAL EXAMINATION General: Alert, no acute distress. Oriented, follows commands Wound: Dressing is clean, dry, intact. Musculoskeletal: Sensation intact over the DP/SP/T/saphenous/sural nerve distribution. Toes warm. Able to fire TA/EHL/GS/peroneals. DP/PT pulses 2+. Drains(s): none LABORATORY STUDIES (past 24 hours) No results found for this or any previous visit (from the past 24 hour(s)). IMAGING STUDIES (past 24 hours) Dx Hip Right 1 View Result Date: 07/11/2020 Impression: Image obtained during a right ELSY. Dx Hip Right 2-3 Views Result Date: 07/11/2020 Impression: Right ELSY. Negative for PO purposes. ASSESSMENT / PLAN Surgical Diagnosis/Procedure(s) 1. Status post right total hip arthroplasty on 07/11/[address] Brown Active Issues # Hypertension - p.r.n. hydralazine for systolic blood pressure greater than 180 Comorbidities Present on Admission Active Ambulatory Problems Diagnosis Date Noted ??? Other Specified Arthritis Left Knee 08/11/2017 ??? Morbid Severe Obesity Due To Excess Calories (HCC) 11/06/2015 ??? Restless Leg Syndrome 12/08/2017 ??? Sleep Apnea 05/09/2009 ??? Hypothyroidism 08/09/2008 ??? Surgery Bariatric Status Post 05/14/2009 ??? Primary Osteoarthritis Knee Bilateral 03/30/2012 ??? Gastroesophageal Reflux Disease NOS 12/08/2017 ??? Asthma Mild Intermittent (HCC) 12/08/2017 ??? Fusion Lumbar Spine Status Post 12/08/2017 ??? Arthritis Knee 12/09/2017 Resolved Ambulatory Problems Diagnosis Date Noted ??? No Resolved Ambulatory Problems Past Medical History: Diagnosis Date ??? Anemia ??? Apnea Sleep Obstructive ??? Arthritis Inflammatory (HCC) ??? Asthma NOS ??? Blood Transfusion No Diagnosis 2005 ??? Cataract 08/2018 ??? Depressive Disorder ??? Dysfunction Thyroid ??? Embolus Pulmonary (HCC) 2015 ??? Gallbladder Disorder ??? Headache Unspecified ??? Hyperlipidemia ??? Other Injury Of Unspecified Body Region ??? Thromboembolism NOS Ms. Caba is overall doing well postoperatively. Her pain is well controlled. She does have a history of postoperative nausea. However, she denies any nausea at this time. If nausea does develop, we may consider placing a scopolamine patch. Of note, she was hypertensive in the PACU. Thus, p.r.n. hy dralazine has been ordered if her systolic blood pressure is greater than 180. She will work with Physical therapy later today. Anticipate discharge home tomorrow, postoperative day 1, pending clinicalcourse. PLAN: ?? Activity: 50% weight-bearing right lower extremity, physical therapy to help mobilize ?? Antibiotics: sheree-operative Cefazolin x 24 hours, followed by Duricef x 14 days ?? Blood: hemodynamically stable, currently asymptomatic ?? Brace: none ?? Cultures: none ?? Diet: general diet ?? Drains: none ?? DVT Prophylaxis: SCD, early mobilization and enoxaparin 30 mg subQ b.i.d. for 30 days ?? Pain: Tylenol, tramadol, oxycodone ?? Urinary: no urinary catheter ?? Disposition: Anticipate discharge to home tomorrow, pending clinical course For any questions or concerns from 6 am until 6 pm, please page Kevin jung at [phone]. For urgent matters from 6 pm until 6 am, please page Nicolas Stallworth at [facility] [phone]. documented in this encounter Consult Notes Destinee Oakley R.N. - 07/12/2020 3:02 PM CDT Discharge Planning Assessment SUBJECTIVE Referral Data Referral Source: Early Screen for Discharge Planning Referral Reason: Discharge Planning Discharge Planning: Early screen discharge Who was present during the interview?: Patient Rn Rehabilitation Services Used: No Patient Information Primary Caregiver: Spouse Accompanied by/Relationship: Nnamdi Caba/spouse Diet/Texture: By mouth Legal Information Legal Decision Maker: Self Advance Directives: Advanced Care Plan Advance Directives Status: Not Activated Caregiver Information Caregiver Name: Nnamdi Caba Caregiver Relationship: spouse Caregiver Caregiver Address: same as patient Services Requested Level of Care: Intermediate OBJECTIVE Functional Status (ADLs) Functional Status: Assistive device Assistive Devices: Walker, Cane, Toilet riser, Eyeglasses, Control Room Helper, Other (Comment)(sock aid, shoe horn, handheld shower wand) Level of Assistance: Modified independent, requires aide device or extra time Dressing: Independent Feeding: Independent Bathing: Independent Grooming: Independent Toileting: Independent Transfer to/from Bed, Chair Etc.: Independent Mobility: Independent Meal Prep: Needs assistance Medication Setup/Administration: Independent Telephone Use: Independent Housekeeping: Needs assistance Shopping: Needs assistance Managing Finances: Independent Behavior: Oriented Communication: Talks, Can write, Understands speaking, Understands Polish, Reads Environmental Supports Home Environment: House(One level, 2 small steps in w/grab bar, main bed/bath, walk in shower w/bench -hand held wand) Anticipated Modifications to the Patient's Home: None Anticipated Needs/Assistive Devices ADL Anticipated Needs: Shopping, Housekeeping, Meal Preparation, Transportation Use (drive car, use taxi/bus) Equipment Anticipated Needs: None Transportation Needs: Support from family Finance/Insurance Primary insurance: MEDICARE A AND B Secondary insurance: [employer] Does the Patient have any Financial Concerns?: No Income Source: Social security Income/Expense Information: Income meets expenses Discharge Planning Barriers To Discharge: None Strengths: Premorbid level of function, Previous rehab experience, Support of immediate family, Support of extended family/friends, Attitude of family, Attitude of self, Home design, Adaptive/Assistiveproducts, Ability to acquire knowledge Type of Residence: Private residence Support Systems: Spouse, Children, Family members, Friends/neighbors Assistance Recommended after Discharge: Other (Comment) Assistance Recommended after Discharge Other: Intermittent supervision Home Care Services: No Anticipated Discharge Destination: Home or Self Care Does the patient need discharge transport arranged?: No(Nnamdi) ASSESSMENT / PLAN Plan Assessment: The pipe line inspector met with Mindi Caba to discuss her current hospitalization and home going needs. The patient was unaccompanied. The patient was a reliable historian. The role of pipe line inspector was reviewed. The patient reviewed her prior level of care and support system. The patient receives support from her , daughter, son and extended family. The patient described her living environment as a home with bedroom and bathroom on same floor with stairs to enter without rails. Housekeeping, grocery shopping, meal prep, and other household responsibilities have previously been completed by patient. pipe line inspector discussed the patient's potential needs at dismissal based on their home setting, previous needs and responsibilities, homebound status, and relevant assessments with the patient. The patient will be safe and supported to return home with spouse/S.O. when medically ready. Support will be provided by Nnamdi. The patient demonstrated understanding when discussing her home going plans and anticipated needs. Patient reports her souse is able to manage all the inside and outside home cares. Patient reports has a son and daughter in law just a half mile away if any extra help is needed. At this time, the care team has not identified any skilled post-hospital discharge care needs that require the assistance of the Care Management Team. After reviewing the patient's chart and meeting with the patient, the pipe line inspector deemed the LACE+/readmission questions were not necessary. The patient reports understanding that she will dismiss from the hospital when medically stable. Pending hospital course and medical readiness, no barriers to dismissal have been identified at this time. Plan: The patient agrees with the following plan. 1. Patient's anticipated discharge disposition is: Home to Self Care 2. Transportation upon dismissal will be provided by family--Nnamdi. 3. pipe line inspector recommended reaching out to family, friends, and neighbors for assistance. 4. pipe line inspector provided information regarding the dismissal process. 5. pipe line inspector placed or requested the following hospital-based consult orders and/or referrals:None. 6. pipe line inspector will continue to assess for homegoing needs with the interdisciplinary team. 7. pipe line inspector encouraged the patient to reach out with any questions/concerns. Care Management will continue to follow. Signed by: Destinee Oakley R.N. 07/12/2020 Katherine Camarena - 07/12/2020 12:35 PM CDT Occupational Therapy Acute Hospital Inpatient Evaluation/Treatment SUBJECTIVE Patient's Name: Mindi Caba Referring/Attending Provider: Suhas Brown M.D. Medical Diagnosis: Primary Osteoarthritis Hip Right [M16.11] Pain Hip Right [M25.551] Reason for Referral: Occupational Therapy Evaluation and Treatment Occupational therapy evaluate andtreat orthopedic rehab Onset Date: 07/11/20 Payor: MEDICARE / Plan: MEDICARE A AND B / Product Type: Medicare / PERTINENT MEDICAL / SURGICAL HISTORY: Patient Active Problem List Diagnosis ??? Other Specified Arthritis Left Knee ??? Morbid Severe Obesity Due To Excess Calories (HCC) ??? Restless Leg Syndrome ??? Sleep Apnea ??? Hypothyroidism ??? Surgery Bariatric Status Post ??? Primary Osteoarthritis Knee Bilateral ??? Gastroesophageal Reflux Disease NOS ??? Asthma Mild Intermittent (HCC) ??? Fusion Lumbar Spine Status Post ??? Arthritis Knee ??? Pain Hip Right Past Surgical History: Procedure Laterality Date ??? ABDOMINAL SURGERY ??? ARTHROPLASTY REPLACEMENT TOTAL HIP Right 07/11/2020 Procedure: ARTHROPLASTY REPLACEMENT TOTAL HIP.; Surgeon: Suhas Brown M.D.; Location: [facility] OR ??? ARTHROPLASTY REPLACEMENT TOTAL KNEE Left 12/09/2017 Procedure: ARTHROPLASTY REPLACEMENT TOTAL KNEE.; Surgeon: Suhas Brown M.D.; Location: [facility] ??? ARTHROSCOPY KNEE Left 2003 ??? BACK SURGERY 2002 L4 and L5 fusion ??? BARIATRIC SURGERY 2007 ??? BUNIONECTOMY Right 2007 ??? CARPAL TUNNEL RELEASE Bilateral 1988 ??? SECTION 1984 ??? SECTION ??? CHOLECYSTECTOMY 2001 ??? HIATAL HERNIA REPAIR 2007 ??? HIP ARTHROPLASTY TOTAL Left 07/18/2015 hip arthroplasty total ??? JOINT REPLACEMENT ??? KNEE ARTHROPLASTY Right 05/02/2012 >Right total knee arthroplasty utilizing a [employer] Triathlon size 4 posterior- stabilized femur; a size 4 ??? LAPAROSCOPIC GASTRIC BANDING 2007 ??? OOPHORECTOMY Left 2002 ??? OTHER SURGICAL HISTORY 2003 ??? SINUS SURGERY 03/1998 ??? SPINE SURGERY 2001 History of Present Illness:Status post right ELSY, 50% partial weight-bearing Occupational Profile: Prior Function/Occupational Profile Dominant Hand: Left Lives With: Spouse Receives Help From: Family ADL Assistance: Independent IADL/Homemaking Assistance: Required assistance IADL/Homemaking Assistance Comments: Required assistance with cooking/cleaning secondary to hip painand fatigue Driving: Independent Occupational Role: Retired Prior Mobility/Functional Transfers Level of [place]: Independent Gait Devices/Wheelchair Used: Front wheeled walker, Cane, Four wheeled walker Gait Devices/Wheelchair Used Comments: Patient stated that the asssistive devices she were used wereduring recovery periods post op for past knee and hip surgeries. Home Living Type of Home: House Home Layout: One level Home Access: Stairs to enter without rails Entrance Stairs: Number of Steps: 2 Bathroom Shower/Tub: Walk-in shower Walk-in shower location: Main floor Bathroom Toilet: Standard(Toilet seat riser) Bathroom Accessibility: Yes Home Equipment Home Adaptive Equipment: Control Room Helper, Sock aid, Long-handled shoe horn, Long-handled sponge Gait Devices Owned: Front-wheeled walker, Cane, Four-wheeled walker Bathroom Equipment: Grab bars in shower, Shower chair with back, Raised toilet seat without arms(Long handled sponge; non skid mat) Family/Caregiver Present: No Patient/Caregiver Goals: Return home with assistance of spouse Patient Comments: Patient stated that had mostly been pain free since 4am and was feeling good; agreeable to therapy. Fall Risk (65 and older) Fall in the last 12 months: No Are you fearful of falling?: Yes Precautions Weight Bearing Status: 50% partial weight-bearing right lower extremity Other Precautions: Total hip precautions OBJECTIVE Vitals taken during session: Pulse rate: 80 bpm and O2 sats: 90% Vision/Sensation Basic Assessment Baseline Vision/Correction: Wears glasses all the time Light Touch: No deficits General ROM / Strength Screening ROM - Upper Extremity Screen: Addressed, no concerns noted Strength - Upper Extremity Screen: Addressed, no concerns noted Cognition Cognitive assessment method: Therapist observations Arousal/Alertness: Appropriate responses to stimuli Attention: Addressed, no concerns noted Orientation: Oriented X4 Following Commands: Follows all commands/directions without difficulty Bed Mobility - Supine to Sit # of Assistants: 1 Level of Assistance: Supervision/Set-up Device: Head of bed elevated, Other(Trapeze) Cuing: Verbal Comments: Patient able to manage right lower extremity with modified independence. Sit to Stand Transfers # of Assistants: 1 Transfer Surface: Bed Transfer Equipment: Gait belt, Front wheeled walker Level of Assistance: Supervision/set-up Assessment/Delivery: Assessed, Educated Comments: Verbal cues for hand placement Stand to Sit Transfers # of Assistants: 1 Transfer Surface: Chair Transfer Equipment: Gait belt, Front wheeled walker Level of Assistance: Supervision/set-up Assessment/Delivery: Assessed, Educated Comments: Verbal cues for hand placement Toilet Transfers # of Assistants: 1 Transfer Surface: Toilet Transfer Approach: To and from Transfer Equipment: Grab bars, Front wheeled walker Level of Assistance: Supervision/set-up Assessment/Delivery: Assessed, Educated Toilet Transfers Comments: Education provided to stand with nose over left toes; patient able to sitand stand while keeping right leg extended. LE Dressing LE Dressing Location: Seated on edge of bed LE Dressing Delivery: Assessed, Educated LE Dressing Adaptive Equipment: Control Room Helper, Long shoe horn, Sock aid LE Dressing Items Included: Socks, Pants LE Dressing Level of Assistance: Modified independent LE Dressing Comments: Education provided on how to use dredge engineer and sock aide to assist with lower body dressing. Sleep Hygiene Sleep Hygiene: Patient stated she is able to sleep on either her side or back. Patient was educated on the following Hip Arthroplasty Precautions to adhere to when completing ADLs/IADLs: - When bending forward, knees should be spread at least shoulder-width apart. - Movement based on pain/discomfort. Example: Keep your knees apart and reach between them to put onsocks and shoes - No hip internal rotation or adduction motions/positions - Avoid extremes of motion in all planes. Example: hyperflexing and twisting of your torso Patient was able to demonstrate adherence to the aforementioned hip precautions as she ambulated, completed functional transfers, toileted, and completed lower body dressing. Handouts provided today: Home Safety Suggestions [id number] Team Communication: Patient's nurse was contacted and patient's status was discussed Outcome Measures [facility] Inpatient Short Form: Putting on and taking off regular lower body clothing?: A Little Putting on and taking off regular upper body clothing?: None Taking care of personal grooming such as brushing teeth?: None Bathing (including washing, rinsing, drying)?: A Little Toileting, which includes using toilet, bedpan, or urinal?: None Eating meals?: None Daily Activities Raw Score (max 24): 22 Daily Activities Standardized Score: 47.1 Interpretation: Clinicians answer the [facility] Inpatient Short Form based on observed patient activityand/or clinical judgement (ie. patient can be scored without physically performing each activity) According to scoring guidelines: Those going to home had an average score of 20.1 Those going home with home care had an average score of 17.9 Those going to SNF had an average score of 14 Those going to IRF had an average score of 13.6 Those going to a LTAC had an average score of 11.5 Patient was left in bedside chair at end of session with call light in reach, all needs met and questions answered. Contact monitoring: PPE used during therapy: Therapist was wearing the following PPE throughout entire session: surgicalmask and eye protection Patient was wearing a mask during therapy session: no Additional Staff Present During Session: Sneha Byrne OT Assessment Discharge Therapy Needs - OT: No further therapy recommended Level of Care Recommended - OT: Intermittent supervision(For safety and mitigate fall risk) Barriers to Discharge Home: None Barriers to Discharge Comments: Patient will go home with spouse who is able to assist, as needed. Patient has history with hip and knee surgeries, resulting in ownership of extensive adaptive equipment. Clinical Impression: Currently, patient presents with impairments including decreased range of motion and strength in right lower extremity resulting in the following functional deficits: functional transfers, lower body bathing and dressing, and mobility. Patient was agreeable to therapy and demonstrated sufficient adherence to all hip and weight bearing precautions throughout the session. Given demonstration and education on use of adaptive equipment to utilize for lower body dressing, patient was able to complete lower body dressing with modified independence. Based on patient's progress, adherence to hip and weightbearing precautions, past history with surgical hip operation, and strong spousal support, patient do es not need any further OT services and appears ready for safe discharge. Rehab potential: Ms. Caba has good potential to achieve established occupational therapy goals within the time frame outlined below. Tiered OT Evaluation Codes: Personal Factors: Needs assistive device Occupational Profile and History review: Brief Performance Deficits: 1 - 3 performance deficits Evaluation Complexity: Low Functional Goals: OT Goal #1: Patient will verbalize and demonstrate adherence to all hip and weight bearing precautions when completing ADLs/IADLs to optimize healing and safety. OT Goal #1 Status: Achieved OT Goal #2: Patient will complete lower body dressing and bathing with modified independence to maximize independence. OT Goal #2 Status: Achieved OT Goal #3: Patient will complete all functional transfers, including toilet and showering transferswith modified independence to maximize independence. OT Goal #3 Status: Achieved Progress: All OT goals achieved Progress: All OT goals achieved Plan Occupational Therapy Attestation Statement: Patient agrees with the plan of care and goals. OT Frequency: OT Amount: 1 visit per day OT Frequency: One-time visit OT Inpatient Duration : Until goals are met or hospital discharge Requires Inpatient OT Follow-Up: No Billing: Time Spent with Patient OT Evaluation (min): 28 min Home Management Training (min): 15 min Time Calculation Total Timed Units (min): 15 min Total Treatment Time (min): 43 min Adriane Camarena Associated attestation - Sneha Byrne O.T., BCPR - 07/12/2020 2:40 PM CDT This therapist has reviewed all documentation and supervised today???s session. The therapist agreeswith the plan developed in collaboration with the patient. This licensed therapist was present and engaged in the session 100% of the time. This licensed therapist was overseeing and guiding the evaluation and/or treatment. Andriy Isidro P.T., Stephania., A.T.C. - 07/11/2020 4:45 PM CDT Physical Therapy Inpatient Evaluation/Treatment By co-signing this note, the provider certifies the therapy being provided to this patient is reasonable and necessary for the diagnosis or treatment of this patient. SUBJECTIVE Patient's Name: Mindi Caba Referring/Attending Provider: Suhas Brown M.D. Medical Diagnosis: Primary Osteoarthritis Hip Right [M16.11] Reason for Referral: PT Evaluate and Treat Physical therapy evaluate and treat orthopedic rehab Onset Date: 07/11/20 Payor: MEDICARE / Plan: MEDICARE A AND B / Product Type: Medicare / PERTINENT MEDICAL / SURGICAL HISTORY: Patient Active Problem List Diagnosis ??? Other Specified Arthritis Left Knee ??? Morbid Severe Obesity Due To Excess Calories (HCC) ??? Restless Leg Syndrome ??? Sleep Apnea ??? Hypothyroidism ??? Surgery Bariatric Status Post ??? Primary Osteoarthritis Knee Bilateral ??? Gastroesophageal Reflux Disease NOS ??? Asthma Mild Intermittent (HCC) ??? Fusion Lumbar Spine Status Post ??? Arthritis Knee Past Surgical History: Procedure Laterality Date ??? ABDOMINAL SURGERY ??? ARTHROPLASTY REPLACEMENT TOTAL KNEE Left 12/09/2017 Procedure: ARTHROPLASTY REPLACEMENT TOTAL KNEE.; Surgeon: Suhas Brown M.D.; Location: [facility] OR ??? ARTHROSCOPY KNEE Left 2003 ??? BACK SURGERY 2002 L4 and L5 fusion ??? BARIATRIC SURGERY 2008 ??? BUNIONECTOMY Right 2007 ??? CARPAL TUNNEL RELEASE Bilateral 1988 ??? SECTION 1984 ??? SECTION ??? CHOLECYSTECTOMY 2001 ??? HIATAL HERNIA REPAIR 2007 ??? HIP ARTHROPLASTY TOTAL Left 07/18/2015 hip arthroplasty total ??? JOINT REPLACEMENT ??? KNEE ARTHROPLASTY Right 05/02/2012 >Right total knee arthroplasty utilizing a [employer] Triathlon size 4 posterior- stabilized femur; a size 4 ??? LAPAROSCOPIC GASTRIC BANDING 2008 ??? OOPHORECTOMY Left 2002 ??? OTHER SURGICAL HISTORY 2003 ??? SINUS SURGERY 03/1998 ??? SPINE SURGERY 2001 History of Present Illness: Status post right ELSY, 50% partial weight-bearing Prior Function/Occupational Profile Lives With: Spouse Receives Help From: Family ADL Assistance: Independent IADL/Homemaking Assistance: Required assistance IADL/Homemaking Assistance Comments: Required assistance with cooking/cleaning secondary to hip painand fatigue Driving: Independent Occupational Role: Retired Prior Mobility/Functional Transfers Level of [place]: Independent Home Equipment Gait Devices Owned: Front-wheeled walker, Cane Bathroom Equipment: Grab bars in shower, Shower chair with back, Raised toilet seat without arms Home Living Type of Home: House Home Layout: One level Home Access: Stairs to enter without rails Entrance Stairs: Number of Steps: 2 Bathroom Shower/Tub: Walk-in shower Walk-in shower location: Main floor Bathroom Toilet: Standard(Has riser attachment) Family/Caregiver Present: No Patient/Caregiver Goals: Return home with assistance of spouse Patient Comments: Patient states pain is well managed rated at 3/10, agreeable to physical therapy Precautions Weight Bearing Status: 50% partial weight-bearing right lower extremity Other Precautions: Total hip precautions Fall Risk (65 and older) Fall in the last 12 months: No Are you fearful of falling?: Yes OBJECTIVE Vitals monitored throughout session; within normal ranges. Cognition Orientation: Oriented X4 General ROM / Strength Screening ROM - Upper Extremity Screen: Addressed, no concerns noted ROM - Lower Extremity Screen: Impaired right Strength - Upper Extremity Screen: Addressed, no concerns noted Strength - Lower Extremity Screen: Impaired right Bed Mobility - Supine to Sit # of Assistants: 1 Level of Assistance: Minimal assistance Device: Head of bed elevated, Other(Trapeze) Cuing: Verbal, Tactile Comments: Verbal cuing to maintain hip precautions, tactile assistance provided right lower extremity to help clear edge of bed Bed Mobility - Sit to Supine # of Assistants: 1 Level of Assistance: Minimal assistance Device: Head of bed elevated, Other(Trapeze) Cuing: Verbal, Tactile Comments: Verbal cuing to maintain hip precautions, tactile assistance provided right lower extremity to help clear edge of bed Sit to Stand Transfers # of Assistants: 1 Transfer Surface: Bed, Toilet/Commode(Slightly elevated bed height) Transfer Equipment: Gait belt, Front wheeled walker Level of Assistance: Supervision/set-up Assessment/Delivery: Assessed, Instructed Comments: PT provided verbal and visual demonstration of how to offload surgical lower extremity by completing a weight shift and using proper hand placement on the bed and walker to improve efficiencywith transfer Stand to Sit Transfers # of Assistants: 1 Transfer Surface: Bed, Toilet/Commode Transfer Equipment: Gait belt, Front wheeled walker Level of Assistance: Supervision/set-up Assessment/Delivery: Assessed, Instructed Comments: Verbal cuing for hand placement, and to extend surgical extremity when sitting for pain management Toilet Transfers # of Assistants: 1 Transfer Surface: Toilet Transfer Approach: To and from Transfer Equipment: Grab bars, Toilet safety frame Level of Assistance: Minimal assistance Assessment/Delivery: Assessed, Instructed, Therapist assisted Toilet Transfers Comments: Min assist provided at the gait belt to help patient achieve full stand additional support at the walker to keep assistive device stabilized Gait Assessment/Training Distance (m): 8 m Surface: Even Device: Gait belt, Front-wheeled walker # of Assistants: 1 Level of Assistance: Supervision/Set-up Quality/Pattern: Step-to Cueing Provided: Verbal, Visual Training/Intervention: PT gave verbal and visual demonstration of how to complete step to gait pattern using front wheel walker in order to maintain weight-bearing status Response: Patient demonstrated good stability using front wheel walker, did express some fatigue, otherwise maintained weight-bearing status and remained free from falls Exercise - Protocol Total Joints Exercise: Total hip - posterior Total Joints Exercise Comments: Patient was educated on how to perform ankle pumps, quad sets, and long arc quads. Patient was instructed to perform 10 reps of ankle pumps and quad sets every hour if possible. Long arc quads to be completed 2-3 times per day. Patient also instructed on standing exercises that will be completed 4 weeks postop. Education provided this session: Review of total hip precautions, progression of gait using assistive devices and how to maintain weight-bearing status, review of home exercise program Handouts provided today: Rehabilitation After Total Hip Replacement ([id number]) The patient/family educated on safe transfer techniques with functional mobility/activity. The following coordination of care occurred today: Patient's nurse was contacted and patient's status was discussed Patient was left in bed at end of session with call light in reach, all needs met and questions answered. Contact monitoring: PPE used during therapy: Therapist was wearing the following PPE throughout entire session: surgicalmask and gloves Patient was wearing a mask during therapy session: yes Outcome Measures [facility] Inpatient Short Form: AM-PAC Basic Mobility (V.2) How much help from another person do you currently need???If the patient hasn't done an activity recently, how much help from another person do you think he/she would need if he/she tried? 1. Turning from your back to your side while in a flat bed without using bedrails?: None 2. Moving from lying on your back to sitting on the side of a flat bed without using bedrails?: A Little 3. Moving to and from a bed to a chair (including a wheelchair)?: None 4. Standing up from a chair using your arms (e.g., wheelchair, or bedside chair)?: None 5. To walk in hospital room?: A Little 6. Climbing 3-5 steps with a railing?: A Lot -[facility] Basic Mobility (V.2) Raw Score: 20 -[facility] Basic Mobility (V.2) Standardized Score: 43.99 Interpretation: Clinicians answer the -[facility] Inpatient Short Form based on observed patient activityand/or clinical judgement (ie. patient can be scored without physically performing each activity) According to scoring guidelines: Those going to home had an average score of 20.1 Those going home with home care had an average score of 17.9 Those going to SNF had an average score of 14 Those going to IRF had an average score of 13.6 Those going to a LTAC had an average score of 11.5 Assessment Level of Care Recommended - PT: Intermittent supervision Equipment Recommended - PT: Front-wheeled walker Barriers to Discharge Home: None Barriers to Discharge Comments: Pending progress with physical therapy, likely no barriers to discharge Clinical Impression of today's session: Currently, patient presents with impairments including pain, weakness, and decreased motion in righthip resulting in the following functional deficits: Difficulty walking. Patient able to participate in physical therapy evaluation and treatment session today. Goal of session was to promote early ambulation following surgery, initiate home exercise program, educate on total hip precautions, and ensure safety with mobility/transfers. Patient tolerated interventions well, ambulating a short distance within the room using front wheel walker demonstrating capability of maintaining partial weight-bearing status. Patient did require minimal physical assist for bed mobility and toilet transfers. Overall, patient will continue to benefit from further skilled physical therapy to increase ambulation distance, initiate stair training, review home exercise program, and continue to promote safety with mobility/transfers before discharge. Rehab potential: Ms. Caba has Good potential to achieve established physical therapy goals within the time frame outlined below. Progress: Progressing toward goals Tiered PT Evaluation Codes: Personal Factors: Needs assistive device Examination elements: 4+ Clinical Presentation: Stable Clinical Decision Making: Low complexity clinical decision making Functional Goals: PT Inpatient Goals PT Goal #1: Patient will ambulate 25 meters using a step to gait pattern with supervision or minimalassistance using least restrictive gait aid in order to be a household ambulator. PT Goal #2: Patient will demonstrate an effective stair pattern using hand rails and/or least restrictive gait device with supervision or minimal assistance x1 in order to enter their home and access the bathroom. PT Goal #3: Patient will perform all bed mobility/transfers with supervision or min assist x1 without using hospital bed features in order to decrease caregiver burden and increase independence. PT Goal #4: Patient will demonstrate understanding of home exercise program to be performed daily inorder to improve rehab potential and independence. Plan Patient agrees with the plan of care and goals. Treatment Plan: Plan: Plan of care initiated PT Amount: 2 visits per day PT Frequency: 7 times per week PT Inpatient Duration : Until goals are met or hospital discharge Requires Inpatient Follow-Up: Yes PT - Next Inpatient Appointment: 07/12/20 PT Plan Comments: Therapy plan will consist of progressing gait distance using a front wheeled walker. Patient will be educated on proper stair climbing given the patient's home stair set up. Patient will also be educated on home exercise program. Patient will continue to be educated on bed mobility and transfers. Treatment interventions may include: Treatment/Interventions: Therapeutic exercise, Therapeutic functional activity, Gait training Billing: Time Spent with Patient PT Evaluation (min): 5 min Therapeutic Activity (min): 27 min Total Timed Units (min): 27 min Total Treatment Time (min): 32 min Andriy Isidro P.T., D.P.T., A.T.C. documented in this encounter Nursing Notes Sneha Byrne O.TBrayan, BCPR - 07/12/2020 2:40 PM CDT Re: Mindi MBrayan Caba : 1950 Diagnoses: @DIAGPRIM@ I certify that the rehabilitation services associated with this encounter are required and authorized by md, and that the patient's plan will be reviewed as needed or by end of current plan of care stated. Health Care Provider Signature: per electronic cosignature Sebastián Chopra RPola. - 07/12/2020 2:26 PM CDT Shift Goals: Clinical Goals for the Shift: Pain management, DC to home Identify possible barriers to meeting goals/advancing plan of care: none End of Shift Summary: Goals met. Adequate for discharge. Patient discharged from [facility] at 2:27 PM CDT to Home Self Care. Transportation provided by family. Patient's dismissal medications:Duricef,Oxycodone, Tramadol and Lovenox were filled at [facility] pharmacy. Problem: SAFETY ADULT Goal: Maintain a safe environment Outcome: Adequate for Discharge Problem: SAFETY ADULT - RISK FOR FALL AND OR FALL INJURY Goal: Patient remains free from fall/fall injury Outcome: Adequate for Discharge Problem: PAIN - ADULT Goal: PT VERBALIZES/DEMONSTRATES ADEQUATE COMFORT LEVEL OR BASELINE Outcome: Adequate for Discharge Problem: KNOWLEDGE DEFICIT Goal: Patient/family/caregiver demonstrates understanding of disease process, treatment plan, medications, and discharge instructions Outcome: Adequate for Discharge Problem: INFECTION - ADULT Goal: Absence of infection during hospitalization Outcome: Adequate for Discharge Problem: SKIN/TISSUE INTEGRITY Goal: Skin/Tissue integrity maintained or improved Outcome: Adequate for Discharge Goal: Oral and Nasal mucous membranes remain intact Outcome: Adequate for Discharge Problem: DISCHARGE PLANNING Goal: Patient discharge needs identified Outcome: Adequate for Discharge Sebastián Chopra R.N. - 07/11/2020 7:41 PM CDT Shift Goals: Post operative cares Identify possible barriers to meeting goals/advancing plan of care: none End of Shift Summary: Goals met. Pain well managed with oral medications. Up with PT successfully, Assist of 1 with gbw. [facility] [place] tomorrow. Problem: SAFETY ADULT Goal: Maintain a safe environment Outcome: Progressing Problem: SAFETY ADULT - RISK FOR FALL AND OR FALL INJURY Goal: Patient remains free from fall/fall injury Outcome: Progressing documented in this encounter OR Notes Op Note - Suhas Brown M.D. - 07/11/2020 9:58 AM CDT Pre-op Diagnosis Primary Osteoarthritis Hip Right Post-op Diagnosis Primary Osteoarthritis Hip Right A list of first job ideas actively participated and was necessary for one or more of the following: opening,exposure and visualization during the case, maintaining hemostasis, wound closure resulting in its safe and expeditious completion. Findings As expected. Complications None Description of Procedure Description of Procedure Primary uncemented total hip arthroplasty ?? CPT Code: 17094 ?? INDICATION Hip pain. ?? PREOP DIAGNOSIS End-stage degenerative arthritis ?? POSTOP DIAGNOSIS End-stage degenerative arthritis ?? PROCEDURE Right uncemented primary total hip arthroplasty, ceramic on polyethylene. ? COMPLICATIONS None immediately apparent. ?? Anesthesia was induced consisting of satisfactory general anesthetic and local periarticular injection. ?? The patient was placed in the lateral decubitus position. All bony prominences were padded appropriately. Intravenous antibiotics were administered. The hip was prepped and draped in the usual sterile fashion. ?? A surgical pause was conducted to identify and verify the appropriate patient, surgical site, surgical site marking, and that antibiotics had been given in accordance with our institution's guidelines. ?? An incision was performed over the lateral hip, centered over the greater trochanter in line with the femur in preparation for an anterolateral approach. Dissection was carried through subcutaneous tissue to the level of the fascia. The fascia of the iliotibial band was divided in the direction of itsfibers. The Charnley retractor was then placed and the gluteus medius visualized. The anterior one-third of the abductors was taken off the femur utilizing cautery dissection. A small portion of the vastus lateralis was reflected off the femur with the abductors as one sleeve. The gluteus minimus was then visualized proximally, and a vertical split was made in line with the femoral neck up to the level of the acetabular rim. The capsule was reflected off the femur distally until adequate visualization of the femoral head and neck was achieved and it was felt the hip could be dislocated with ease. The hip was then dislocated anteriorly. The femoral neck was then osteotomized in accordance with our preoperative templating. The femoral head was removed, and attention was turned to the acetabulum. The acetabulum was inspected and found to have near total loss of cartilage. The superior labrum was removed anteriorly and posteriorly to optimally expose the acetabulum. The acetabulum was then reamed with hemispherical reamers to a size 55 mm. The real 56 mm pinnacle acetabular component was opened and impacted into place in appropriate anteversion and abduction. The acetabular component was further secured with cancellous bone screw fixation. The real size 56/49 dual mobility liner was then impacted into the cup and ensured that it seated appropriately. ?? The femur was broached sequentially with broaches to a size KLA 10. A calcar reamer was used to smooth the calcar. The broach was tested, and fit and bone quality were felt to be satisfactory for use of an uncemented femoral component. Trial reduction was performed utilizing a high offset neck and a +1.5-mm femoral head with a dual mobility insert. The hip was reduced and the leg length and offset were found to be satisfactory clinically and based upon our preoperative templating. The hip was found to be stable in extension and external rotation, the position of sleep, and with flexion and internalrotation of the hip. The hip was then dislocated, and the trial femoral component and liner were removed. The real components were then opened. ?? A size 10 high offset femoral component was then press-fit into the femur, and excellent stability was achieved. ?? A real 28 mm head with a +1.5-mm neck length was press-fit onto the femoral component, and the hip was reduced. The leg was once again stable in extension and external rotation, position of sleep, and flexion of 90 degrees, abduction of 0 degrees, and 45 degrees of internal rotation. ?? Hemostasis of the wound was obtained. The wound was thoroughly irrigated with diluted Betadine and sterile normal saline utilizing the pulse lavage. The gluteus minimus was closed utilizing 0 Vicryl sutures. The gluteus medius was repaired utilizing multiple 0 Vicryl sutures. The fascia was then closed with multiple interrupted 0 Vicryl sutures. Once again, the wound was thoroughly irrigated, and thesubcutaneous tissue was closed with multiple 2-0 Monocryl sutures in an interrupted fashion. The skin was closed with a running subcuticular 3-0 Monocryl suture and Dermabond. A sterile dressing was applied to the wound, and the patient was transferred to the postanesthesia recovery unit (PACU) in stable condition. There were no immediate complications. ?? POSTOPERATIVE PLAN The patient will receive 24 hours of perioperative antibiotics with Ancef followed by 2 week course of Duricef. VTE prophylaxis will consist of early mobilization, mechanical compressive devices, and twice daily aspirin therapy.The patient will be 50% weight-bearing for six weeks. ? Suhas Brown M.D. Brief Op Note - Tamara Whittington M.D. - 07/11/2020 9:58 AM CDT Pre-op Diagnosis Primary Osteoarthritis Hip Right Post-op Diagnosis Primary Osteoarthritis Hip Right Findings As expected. Complications None Tamara Whittington M.D. documented in this encounter Miscellaneous Notes Hospital Course - Tamara Whittington M.D. - 07/12/2020 8:34 AM CDT On the day of admission, the patient was taken to the operating room by Dr. Brown for right total hip arthroplasty. The intraoperative as well as the immediate postoperative course were uncomplicated. The patient was transferred from the PACU to the general orthopedic floor where she had an uneventful recovery. At the time of dismissal the patient was ambulating independently and tolerating an oral diet. She was voiding spontaneously. She had optimal pain control with oral medications. Her incision remained clean, dry and intact. She then met criteria for dismissal and was dismissed home. documented in this encounter Plan of Treatment Not on filedocumented as of this encounter Procedures Procedure Name Priority Date/Time Associated Diagnosis Comme nts REMOTE OXIMETRY Routine 07/11/2020 3:23 MONITORING CONT. PM CDT REMOTE OXIMETRY Routine 07/11/2020 3:23 MONITORING CONT. PM CDT MBC TISSUE DONOR Routine 07/11/2020 2:44 Results for SCREEN TEST SET PM CDT this procedu re are in the results section. ADULT OXYGEN Routine 07/11/2020 THERAPY 12:08 PM CDT DX HIP RIGHT 2-3 RAD - Routine 07/11/2020 Results fo r VIEWS (most inpatients 12:03 PM CDT this proced ure and all are in the outpatients) results section. DX HIP RIGHT 1 VIEW RAD - Routine 07/11/2020 Results for (most inpatients 10:49 AM CDT this proced ure and all are in the outpatients) results section. BACTERIA CULTURE, Routine 07/11/2020 Primary Results fo r DONOR 10:12 AM CDT Osteoarthritis Hip this proc edure Right are in the results section. ARTHROPLASTY 07/11/2020 8:56 Primary REPLACEMENT TOTAL AM CDT Osteoarthritis Hip HIP Right documented in this encounter Results MBC Tissue Donor Screen Test (07/11/2020 2:44 PM CDT) [facility] Method Time Signature HBsAg Screen Non-reacti 07/15/2020 MBC Donor ve 8:52 AM CDT HBc Total Ab Non-reacti 07/15/2020 MBC Donor ve 8:52 AM CDT HBV [facility] Non-reacti 07/15/2020 MBC Individual ve 8:52 AM CDT Donor HCV [facility] Non-reacti 07/15/2020 MBC Individual ve 8:52 AM CDT Donor HIV-1 PARTHA Non-reacti 07/15/2020 MBC Individual ve 8:52 AM CDT Donor HCV Ab Screen Non-reacti 07/15/2020 MBC Donor ve 8:52 AM CDT HIV-1/-2 Plus O Non-reacti 07/15/2020 MBC Ab Screen Donor ve 8:52 AM CDT HTLV-I/-II Ab Non-reacti 07/15/2020 MBC Screen Donor ve 8:52 AM CDT T. cruzi Total Non-reacti 07/15/2020 MBC Ab Donor ve 8:52 AM CDT Syphilis Ab Non-reacti 07/15/2020 MBC Screen Donor ve 8:52 AM CDT Comment: This test is done by the Microhemaggluti nation assay- Treponema pallidum (MHA-TP) method. CMV Total Ab Donor Negative 07/15/2020 8:52 AM CD T MBC West Nile Virus [facility] Donor Non-reactive 07/15/2020 8:52 AM CDT MBC Comment: Failure to detect WNV RNA does not rule out the possibility of West Nile virus infection . This result should be evaluated in the context of th e individual's risk factors and clinical findings. Specimen Anatomical Collection Method Collection Time Receive d Time (Source) Location / / Volume Laterality Blood (Blood, 07/11/2020 2:44 PM 07/12/19 2:56 Venous) CDT PM CDT [facility] DONOR TESTING AND [facility] - 07/15/2020 8:52 AM CDT Specimen Information: Specimen ID: [id number] Specimen Type: Blood Specimen Collection Start Date: 07/12/19 ??2:44 PM Specimen Received Date: 07/11/2020 ??2:5 6 PM Specimen ID: [id number] Specimen Type: Blood Specimen Collection Start Date: 07/12/19 ??2:44 PM Specimen Received Date: 07/11/2020 ??2:5 6 PM Specimen ID: [id number] Specimen Type: Blood Specimen Collection Start Date: 07/12/19 ??2:44 PM Specimen Received Date: 07/11/2020 ??2:5 5 PM Specimen ID: [id number] Specimen Type: Blood Specimen Collection Start Date: 07/12/19 ??2:45 PM Specimen Received Date: 07/11/2020 ??2:5 5 PM César Connelly M.D., Ph.D. LAB BLOOD NON ADD-ON Performing Organization Address City/State/ZIP Code Phon e Number [facility] DONOR [address] [place] [address] TEST[place] [address] Donor Testing and [facility] [address]. DX Hip Right 2-3 Views (07/11/2020 12:03 PM CDT) Anatomical Region Laterality Modality Lower Extremity, Hip, Musculoskeletal RST LOS, Right Computed Radiography Musculoskeletal ARZ LOS, Muskuloskeletal FLA LOS Specimen (Source) Anatomical Collection Method Collection Time Re ceived Time Location / / Volume Laterality 07/11/2020 12:08 PM CDT Impressions 07/11/2020 12:08 PM CDT Right ELSY. Negative for PO purposes. Narrative 07/11/2020 12:08 PM CDT EXAM: ??DX HIP RIGHT 2-3 VIEWS Procedure Note Tamara Barnett M.D. - 07/11/2020For matting of this note might be different from the original. EXAM: DX HIP RIGHT 2-3 VIEWS IMPRESSION: Right ELSY. Negative for PO purposes. Sneha Moreno P.A.-C., M.S. [facility] [place] OCEDURES DX Hip Right 1 View (07/11/2020 10:49 AM CDT) Anatomical Region Laterality Modality Lower Extremity, Hip, Musculoskeletal RST LOS, Right Digital Radiography Musculoskeletal ARZ LOS, Muskuloskeletal FLA LOS Specimen (Source) Anatomical Collection Method Collection Time Re ceived Time Location / / Volume Laterality 07/11/2020 10:56 AM CDT Impressions 07/11/2020 10:56 AM CDT Image obtained during a right ELSY. Narrative 07/11/2020 10:56 AM CDT EXAM: ??DX HIP RIGHT 1 VIEW Procedure Note Ulisses Delgado M.D. - 07/11/2020Formatt ing of this note might be different from the original. EXAM: DX HIP RIGHT 1 VIEW IMPRESSION: Image obtained during a right ELSY. Suhas Brown M.D. [facility] PROCE DURES Bacteria Culture, Donor (07/11/2020 10:12 AM CDT) [facility] gist Method Time Signature Bacteria No aerobic or 07/25/2020 DT Culture, anaerobic 7:39 AM CDT Donor growth after 14 days of incubation. Specimen (Source) Anatomical Collection Method Collection Time Re ceived Time Location / / Volume Laterality Bone (Bone Bank 07/11/2020 10:12 Bone) AM CDT Suhas Brown M.D. LAB MICROBIOLOGY - GENERAL O RDERABLES Performing Organization Address City/State/ZIP Code Phon e Number [facility] - [address] [place], [place] [address] [facility] [place] [address] [facility] [address] documented in this encounter Visit Diagnoses Diagnosis Pain Hip Right - Primary Primary Osteoarthritis Hip Right Aftercare Total Hip Arthroplasty Pain Hip Right documented in this encounter Admitting Diagnoses Diagnosis Pain Hip Right documented in this encounter Administered Medications Inactive Administered Medications - up to 3 most recent administrations Medication Order MAR Action Action Date Dose Rate Site acetaminophen tablet 1,000 mg Given 07/11/2020 8:26 AM CDT 1,000 mg (TYLENOL) 1,000 mg, oral, Once, On Wed07/11/20 at 0830, For 1 dose acetaminophen tablet 1,000 mg (TYLENOL) Given 07/12/2020 9:07 AM CDT 1,000 mg 1,000 mg, oral, Every 6 hours, First dose on Wed07/11/20 at 1500 Given 07/12/2020 2:46 AM CDT 1,000 mg Given 07/11/2020 9:40 PM CDT 1,000 mg atorvastatin tablet 20 mg (LIPITOR) Given 07/11/2020 9:39 PM CDT 20 mg 20 mg, oral, Daily at bedtime, First dose on Wed07/11/20 at 2100, atorvaSTATin 20 mg oral daily was interchanged for simvastatin 5-40 mg oral daily calcium carbonate chewable tablet Given 07/12/2020 5:2 1 AM CDT 400 mg of calcium 400 mg of calcium (TUMS) 400 mg of calcium, oral, Every 2 hour PRN, indigestion, Starting on Wed07/11/20 at 1405, Doses listed are in mg of elemental calcium. Take with food. 500 mg calcium carbonate contains 200 mg of elemental calcium. Given 07/11/2020 7:02 PM CDT 400 mg of calcium Given 07/11/2020 2:51 PM CDT 400 mg of calcium cefadroxil capsule 500 mg (DURICEF) Given 07/12/2020 9:07 AM CDT 500 mg 500 mg, oral, 2 times daily, First dose on Wed07/12/20 at 0900, For 14 days, Indications: Prophylaxis, surgical ceFAZolin in dextrose (iso-os) IVPB 2 New Bag 07/12/2020 2:42 AM CDT 2 g 200 mL/hr g (ANCEF) 2 g, intravenous, at 200 mL/hr, Administer over 30 Minutes, Every 8 hours, First dose on Wed07/11/20 at 1800, For 2 doses, Start within 8 hours of last IV dose., Drug Monitoring Program: Pharmacist to adjust medication dosing based on indication and drug clearance factors., Indications: Prophylaxis, surgical New Bag 07/11/2020 5:43 PM CDT 2 g 200 mL/hr celecoxib capsule 200 mg (CeleBREX) Given 07/11/2020 8:18 AM CDT 200 mg 200 mg, oral, Once, On Milly 07/11/20 at 0815, For 1 dose, Pre-Op enoxaparin injection 30 mg Given 07/12/2020 9:07 AM CDT 30 mg Right Lower Abdomen (LOVENOX) 30 mg, subcutaneous, 2 times daily, First dose on Milly 07/11/20 at 2130 Given 07/11/2020 9:39 PM CDT 30 mg Left Upper Abdomen fentaNYL injection 25 mcg (SUBLIMAZE) Given 07/11/2020 12:39 PM CDT 25 mcg 25 mcg, intravenous, Every 2 min PRN, For pain 4 or greater (maximum 100 mcg). If max dose of Fentanyl is reached and if pain is greater than 4, discontinue Fentanyl: give Hydromorphone, Starting on Milly 07/11/20 at 1208, PACU (only) Given 07/11/2020 12:35 PM CDT 25 mcg Given 07/11/2020 12:32 PM CDT 25 mcg hydrALAZINE tablet 25 mg (APRESOLINE) 25 mg, oral, Every 8 hours PRN, SBP > 180, Starting on Milly 07/11/20 at 1415 HYDROmorphone (PF) injection 0.2 mg Given 07/11/2020 12:43 PM CD T 0.2 mg (DILAUDID) 0.2 mg, intravenous, Every 5 min PRN, moderate pain or score 4-6 of 10, severe pain or score 7-10 of 10, Starting on Milly 07/11/20 at 1208, PACU (only), Up to maximum total dose of 2 mg Given 07/11/2020 12:41 PM CDT 0.2 mg lactated ringers Continued from OR 07/11/2020 12:21 PM 20 mL/hr 20 mL/hr 20 mL/hr, intravenous, CDT Continuous, Starting on Milly 07/11/20 at 1145, PACU & Post-Op levothyroxine tablet 125 mcg (SYNTHROID, Given 07/12/2020 9:07 A M CDT 125 mcg LEVOTHROID) 125 mcg, oral, Daily, First dose on Wed07/12/20 at 0900 mirtazapine tablet 45 mg (REMERON) Given 07/11/2020 9:39 PM CDT 45 mg 45 mg, oral, Daily at bedtime, First dose on Wed07/11/20 at 2100 ondansetron (PF) injection 4 mg (ZOFRAN) Given 07/11/2020 2:51 PM CDT 4 mg 4 mg, intravenous, Every 6 hours PRN, nausea, vomiting, Starting on Wed07/11/20 at 1405, For 48 hours, Reassess for nausea or vomiting after at least 10 minutes. If nausea or vomiting persists administer next ordered antiemetic medications (order for antiemetic medication administration ondansetron then droperidol then promethazine). oxybutynin 24 hr tablet 10 mg (DITROPAN- XL) Given 07/12/2020 9:07 AM CDT 10 mg 10 mg, oral, 2 times daily, First dose on Wed07/11/20 at 2100, Swallow whole. Do NOT crush, chew, or split tablet. Given 07/11/2020 9:39 PM CDT 10 mg oxyCODONE IR tablet 10 mg (ROXICODONE) Given 07/11/2020 12:14 PM CDT 10 mg 10 mg, oral, Once as needed, For pain 4 or greater, Starting on Wed07/11/20 at 1208, For 1 dose, PACU (only) oxyCODONE IR tablet 10 mg (ROXICODONE) Given 07/11/2020 9:40 PM CDT 10 mg 10 mg, oral, Every 4 hours PRN, severe pain or score 7-10 of 10, Starting on Wed07/11/20 at 1405, Second line therapy. If patient is greater than 7 after 2 hours, call service for new order. Given 07/11/2020 5:42 PM CDT 10 mg oxyCODONE IR tablet 10 mg (ROXICODONE) Given 07/12/2020 1:56 PM CDT 10 mg 10 mg, oral, Every 3 hours PRN, severe pain or score 7-10 of 10, Starting on Milly 07/11/20 at 2200, Second line therapy. If patient is greater than 7 after 2 hours, call service for new order. Given 07/12/2020 5:21 AM CDT 10 mg oxyCODONE IR tablet 5 mg (ROXICODONE) 5 mg, oral, Every 3 hours PRN, moderate pain or score 4-6 of 10, Starting on Milly 07/11/20 at 2200, Second line therapy rOPINIRole tablet 2 mg (REQUIP) Given 07/11/2020 9:40 PM CDT 2 mg 2 mg, oral, Daily at bedtime, First dose on Milly 07/11/20 at 2100 sennosides-docusate sodium 8.6-50 mg per Given 07/12/2020 9:07 A M CDT 1 tablet tablet 1 tablet (SENOKOT-S) 1 tablet, oral, 2 times daily, First dose on Milly 07/11/20 at 2100, Do not give if patient has diarrhea. Given 07/11/2020 9:40 PM CDT 1 tablet traMADoL tablet 100 mg (ULTRAM) Given 07/11/2020 3:41 PM CDT 100 mg 100 mg, oral, Every 6 hours PRN, severe pain or score 7-10 of 10, Starting on Milly 07/11/20 at 1405, First line therapy or for pain greater than comfort goal (not to exceed 400 mg in 24 hours). traMADoL tablet 50 mg (ULTRAM) 50 mg, oral, Every 6 hours PRN, moderate pain or score 4-6 of 10, Starting on Milly 07/11/20 at 1405, First line therapy documented in this encounter Active and Recently Administered Medications Times are shown in CDT. Scheduled Medication Order 07/10/2020 07/11/2020 07/12/2020 acetaminophen tablet 1,000 mg (TYLENOL) (COMPLETED) 0826 (Given - Provider: Shayne Kennedy R.N.) 1,000 mg, oral, Once, On Milly 07/11/20 at 0830, For 1 dose acetaminophen tablet 1,000 mg (TYLENOL) 1451 (Given - Provider: Sebastián Chopra R.N.)2140 (Given - Provider: Genie Clements) 0246 (Given - Provider: Margaux Posadas R.N.)09 (Given - Provider: Sebastián Chopra R.N.)1500 (Due) 1,000 mg, oral, Every 6 hours, First dose on Wed07/11/20 at 1500 atorvastatin tablet 20 mg (LIPITOR) 2138 (Given - Provider: Genie Clements) 20 mg, oral, Daily at bedtime, First dos e on Wed07/11/20 at 2100, atorvaSTATin 20 mg oral daily was interchanged for simvastatin 5-40 mg oral daily cefadroxil capsule 500 mg (DURICEF) 906 (Given - Provider: Sebastián Chopra R.N.) 500 mg, oral, 2 times daily, First dose on Wed07/12/20 at 0900, For 14 days, Indications: Prophylaxis, surgical ceFAZolin in dextrose (iso-os) IVPB 2 g (ANCEF) (COMPLETED) 1742 (New Bag - Provider: Sebastián Chopra R.N.) 024 (New Bag - Provider: Margaux amor R.N.) 2 g, intravenous, at 200 mL/hr, Administ er over 30 Minutes, Every 8 hours, First dose on Wed07/11/20 at 1800, For 2 doses, Start within 8 hours of last IV dose., Drug Monitoring Program: Pharmacist to a djust medication dosing based on indicat ion and drug clearance factors., Indications: Prophylaxis, surgical ceFAZolin injection 2 g (ANCEF) (COMPLETED) 950 (Given - Provider: Kavin Ingram APRN, MULTISKILL OPERATOR) 2 g, intravenous, Once, On Wed07/11/20 a t 0815, For 1 dose, Intra-Op, Administer within 1 hour prior to surgical incision If needed, reconstitute vial per package insert instructions. See IVAG for admin istration guidelines. , , Drug Monitorin g Program: Pharmacist to adjust medication dosing based on indication and drug clearance factors., Indications: Prophylaxis, surgical celecoxib capsule 200 mg (CeleBREX) (COMPLETED) 817 (Given - Provider: Shayne Kennedy R.N.) 200 mg, oral, Once, On Wed07/11/20 at 0815, For 1 dose, Pre-Op enoxaparin injection 30 mg (LOVENOX) 2138 (Given - Provider: Genie Clements) 906 (Given - Provider: Sebastián Chopra R.N.) 30 mg, subcutaneous, 2 times daily, First dose on Wed07/11/20 at 2130 levothyroxine tablet 125 mcg (SYNTHROID, LEVOTHROID) 906 (Given - Provider: Sebastián Chopra R.N.) 125 mcg, oral, Daily, First dose on Wed07/12/20 at 0900 mirtazapine tablet 45 mg (REMERON) 2138 (Given - Provider: Genie Clements) 45 mg, oral, Daily at bedtime, First dose on Milly 07/11/20 at 2100 oxybutynin 24 hr tablet 10 mg (DITROPAN-XL) 2138 (Given - Provider: Genie Clements) 906 (Given - Provider: Sebastián braun RBrayanNBrayan) 10 mg, oral, 2 times daily, First dose o n Wed07/11/20 at 2100, Swallow whole. Do NOT crush, chew, or split tablet. rOPINIRole tablet 2 mg (REQUIP) 2139 (Given - Pr ovider: Genie Clements) 2 mg, oral, Daily at bedtime, First dose on Wed07/11/20 at 2100 sennosides-docusate sodium 8.6-50 mg per tablet 1 tablet (SE NOKOT-S) 2139 (Given - Provider: Genie Clements) 906 (Given - Provider: Sebastián braun R.NBrayan) 1 tablet, oral, 2 times daily, First dos e on Wed07/11/20 at 2100, Do not give if patient has diarrhea. tranexamic acid in NaCl IVPB 1,000 mg (CYKLOKAPRON) (COMPLET ED) 0951 (Given - Provider: Kavin Ingram APRN, MULTISKILL OPERATOR) 1,000 mg (1 g), intravenous, at 300 mL/h r, Administer over 20 Minutes, Once, On Milly 07/11/20 at 0815, For 1 dose, Intra-Op, Administer in OR upon induction tranexamic acid in NaCl IVPB 1,000 mg (CYKLOKAPRON) (COMPLET ED) 1035 (Given - Provider: Karla L Walker, COPPER FLOTATION OPERATOR, MULTISKILL OPERATOR) 1,000 mg (1 g), intravenous, at 300 mL/h r, Administer over 20 Minutes, Once, On Milly 07/11/20 at 0815, For 1 dose, Intra-Op, Administer in OR just before dropping tourniquet Continuous Medication Order 07/10/2020 07/11/2020 07/12/2020 lactated ringers 1221 (Continued from OR - Provider: Katie Gee R.N.) 20 mL/hr, intravenous, Continuous, Start ing on Milly 07/11/20 at 1145, PACU & Post-Op PRN Medication Order 07/10/2020 07/11/2020 07/12/2020 calcium carbonate chewable tablet 400 mg of calcium (TUMS) 1451 (Given - Provider: Sebastián Chopra RBrayanNBrayan)1902 (Given - Provider: Kendra Lemus R.N., ONC) 0521 (Given - Provider: Chay odonnell, M.S.N., R.N.) 400 mg of calcium, oral, Every 2 hour TN N, indigestion, Starting on Milly 07/11/20 at 1405, Doses listed are in mg of elemental calcium. Take with food. 500 mg calcium carbonate contains 200 mg of elemental calcium. dexAMETHasone injection 4 mg (DECADRON) 4 mg, intravenous, Once as needed, nause a, vomiting, Starting Milly 07/11/20 at 1405, For 1 dose, Give only if NOT given during the pre or intraoperative period. If ondansetron ordered, give dexamethasone with first dose of ondansetron. fentaNYL injection 25 mcg (SUBLIMAZE) (CANCELED) 1229 (Given - Provider: Katie Gee, R.N.)1232 (Given - Provider: Katie Gee, R.N.)1235 (Given - Provider: Katie Gee R.N.)1239 (Given - Provider: Katie Gee R.N.) 25 mcg, intravenous, Every 2 min PRN, Fo r pain 4 or greater (maximum 100 mcg). If max dose of Fentanyl is reached and if pain is greater than 4, discontinue Fentanyl: give Hydromorphone, Starting on Milly 07/11/20 at 1208, PACU (only) haloperidol lactate injection 1 mg (HALDOL) 1 mg, intravenous, Every 6 hours PRN, na usea, vomiting, Starting Milly 07/11/20 at 1405, For 48 hours, Total of 3 doses in 24 hour period. RASS must be -2 or higher to administer. Reassess for nausea or vo miting after at least 10 minutes. If lissy sea or vomiting persists administer next ordered antiemetic medications (order for antiemetic medication administration ondansetron then haloperidol then promethazine) hydrALAZINE tablet 25 mg (APRESOLINE) 25 mg, oral, Every 8 hours PRN, SBP > 180, Starting on Milly at 1415 HYDROmorphone (PF) injection 0.2 mg (DILAUDID) (CANCELED) 1241 (Given - Provider: Katie Gee R.N.)1243 (Given - Provider: Katie Gee R.N.) 0.2 mg, intravenous, Every 5 min PRN, mo derate pain or score 4-6 of 10, severe pain or score 7-10 of 10, Starting on Milly 07/11/20 at 1208, PACU (only), Up to maximum total dose of 2 mg loratadine tablet 10 mg (CLARITIN) 10 mg, oral, Daily PRN, allergies, for o pioid induced pruritus, Starting Milly 07/11/20 at 1405, Drug Monitoring Program: Pharmacist to adjust medication dosing based on indication and drug clearance factors. naloxone injection 0.2 mg (NARCAN) 0.2 mg, intravenous, As needed, respirat ory depression, Starting Milly 07/11/20 at 1405, For RASS Score -4 or less, respiratory rate of less than 8 breaths/min. Notify provider/service and rapid response team (if available at institution). ondansetron (PF) injection 4 mg (ZOFRAN) 1451 (Given - Provider: Sebastián Chopra R.N.) 4 mg, intravenous, Every 6 hours PRN, na usea, vomiting, Starting on Milly 07/11/20 at 1405, For 48 hours, Reassess for nausea or vomiting after at least 10 minutes. If nausea or vomiting persists administe r next ordered antiemetic medications (o rder for antiemetic medication administration ondansetron then droperidol then promethazine). oxyCODONE IR tablet 10 mg (ROXICODONE) (COMPLETED) 1214 (Given - Provider: Katie Gee R.NBrayan) 10 mg, oral, Once as needed, For pain 4 or greater, Starting on Milly 07/11/20 at 1208, For 1 dose, PACU (only) oxyCODONE IR tablet 10 mg (ROXICODONE) (CANCELED) 1742 (Given - Provider: Sebastián Chopra R.N.)2140 (Given - Provider: Genie Clements) 10 mg, oral, Every 4 hours PRN, severe p ain or score 7-10 of 10, Starting on Milly 07/11/20 at 1405, Second line therapy. If patient is greater than 7 after 2 hours, call service for new order. oxyCODONE IR tablet 10 mg (ROXICODONE)(Linked Group 1) 0521 (Given - Provider: Marcial Collins.S.N., R.N.)1356 (Given - Provider: Sebastián Chopra RIris) 10 mg, oral, Every 3 hours PRN, severe p ain or score 7-10 of 10, Starting on Milly 07/11/20 at 2200, Second line therapy. If patient is greater than 7 after 2 hours, call service for new order. oxyCODONE IR tablet 5 mg (ROXICODONE)(Linked Group 1) 0521 (See Alternative - Provider: Marcial Collins.S.N., R.N.)1356 (See Alternative - Provider: Sebastián Chopra R.N.) 5 mg, oral, Every 3 hours PRN, moderate pain or score 4-6 of 10, Starting on Milly 07/11/20 at 2200, Second line therapy promethazine injection 6.25 mg (PHENERGAN) 6.25 mg, intravenous, Every 6 hours PRN, nausea, vomiting, Starting Milly 07/11/20 at 1405, For 48 hours, RASS must be -2 or higher to administer. Reassess for nausea/vomiting after at least 10 minutes. If nausea or vomiting persists administer next ordered antiemetic medications (order for antiemetic medication administration ondansetron then droperidol then promethazine). ropivacaine (PF) 200 mg, EPINEPHrine 150 mcg, ketorolac 15 mg in NaCl 0.9% 60 mL injection (ARTHROPLASTY BLOCK 100+ kg) (COMPLETED) 10 36 (Given - Provider: Tamara Whittington M.D.) 60 mL, infiltration, Once in surgery, OR use only, Starting on Milly 07/11/20 at 0802, For 1 dose, Intra-Op, *Not for IV use* ropivacaine (PF) 200 mg, EPINEPHrine 150 mcg, ketorolac 15 mg in NaCl 0.9% 60 mL injection (ARTHROPLASTY BLOCK 100+ kg) (COMPLETED) 10 36 (Given - Provider: Tamara Whittington M.D.) 60 mL, infiltration, Once in surgery, OR use only, Starting on Milly 07/11/20 at 0802, For 1 dose, Intra-Op, *Not for IV use* traMADoL tablet 100 mg (ULTRAM)(Linked Group 2) 1541 (Given - Provider: Sebastián Chopra R.N.) 100 mg, oral, Every 6 hours PRN, severe pain or score 7-10 of 10, Starting on Milly 07/11/20 at 1405, First line therapy or for pain greater than comfort goal (not to exceed 400 mg in 24 hours). traMADoL tablet 50 mg (ULTRAM)(Linked Group 2) 1541 (See Alternative - Provider: Sebastián Chopra R.N.) 50 mg, oral, Every 6 hours PRN, moderate pain or score 4-6 of 10, Starting on Milly 07/11/20 at 1405, First line therapy Linked Groups Order Group 1: oxyCODONE IR tablet 5 mg (ROXICODONE)Jump to med 5 mg, oral, Every 3 hours PRN, moderate pain or score 4-6 of 10, Starting on Milly 07/11/20 at 2200
Second line therapy
Or oxyCODONE IR tablet 10 mg (ROXICODONE)Jump to med 10 mg, oral, Every 3 hours PRN, severe p ain or score 7-10 of 10, Starting on Milly 07/11/20 at 2200
Second line therapy. If patient is greater than 7 after 2 hours, call service for new order.
Group 2: traMADoL tablet 50 mg (ULTRAM)Jump to med 50 mg, oral, Every 6 hours PRN, moderate pain or score 4-6 of 10, Starting on Milly 07/11/20 at 1405
First line therapy
Or traMADoL tablet 100 mg (ULTRAM)Jump to med 100 mg, oral, Every 6 hours PRN, severe pain or score 7-10 of 10, Starting on Milly 07/11/20 at 1405
First line therapy or for pain greater than comfort goal (not to exceed 400 mg in 24 hours).
documented in this encounter
--- OUTSIDE RECORDS SUMMARY | 2022-02-13 12:12 | XMS_ITS | Encounter Summary ---
:1950 Author Organization [employer] Address [address] [place] [address] Care Team Providers Name Role Phone Terell Malloy MD Primary Care Provider Encounter Details Date Type Department Care Team Description 08/11/2006 PN Conversion Only [facility] [address] [facility] . [place], [place] [id number] Social History Tobacco Use Types Packs/Day Years Used Date Smoking Tobacco: Never Assessed Sex Assigned at Date Recorded Female 01/13/2021 5:27 PM CDT documented as of this encounter Plan of Treatment Not on filedocumented as of this encounter Visit Diagnoses Not on filedocumented in this encounter Care Teams Headlight Adjuster Relationship Specialty Start Date End Date Terell Malloy MD PCP - General 07/01/10 11/08/12 [address] [place], [place] [address] documented as of this encounter
--- OUTSIDE RECORDS SUMMARY | 2022-02-13 12:12 | XMS_ITS | Encounter Summary ---
:1950 Author Organization [facility] Address [address] [place] [address] Care Team Providers Name Role Phone Unavailable Primary Care Provider Unavailable Reason for Referral Outpatient (Routine) - Closed Specialty Diagnoses / Procedures Referred By Contact Refer red To Contact Orthopedic Surgery Diagnoses Arthroplasty Total Hip Replacement Status Post Right Tamara Whittington [place] M.D. [address] [place] [address] Referral ID Status Reason Start Date Expiration Date Visits Requ ested Visits Authorized [id number] Closed 07/18/2020 07/18/2021 1 1 Reason for Visit Reason Comments Pre-visit Testing Orders Encounter Details Date Type Department Care Team Description 07/18/2020 Clinical Communication Department of Suhas Brown Pre- visit Testing Orthopedic Surgery Guilherme Baker Orders in [address] [place] [id number] [place], [place] [phone] (Work) [phone] Social History Tobacco Use Types Packs/Day Years [...] or relatives? How often do you attend yarsanism or advent More than 4 time s per year 10/07/2020 services? Do you belong to any clubs or organizations No 10/07/2020 such as yarsanism groups, unions, fraternal or athletic groups, or [...] place to sleep or slept in a residential (including now)? Education Answer Date Recorded What is the highest level of school you have completed or 12 th grade 04/15/2019 the highest degree you have received? 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 Left ELSY. Lumbosacral fusion. Tamara A Barras M.D. IMG DIAGNOSTIC IMAGING PROCE DURES documented in this encounter Visit Diagnoses Diagnosis Arthroplasty Total Hip Replacement Statu s Post Right - Primary Arthroplasty Total Hip Replacement Statu s Post Right documented in this encounter
--- OUTSIDE RECORDS SUMMARY | 2022-02-13 12:13 | XMS_ITS | Encounter Summary ---
:1950 Author Organization [facility] Address [address] [place] [address] Care Team Providers Name Role Phone Unavailable Primary Care Provider Unavailable Reason for Visit Reason Comments Appointment Encounter Details Date Type Department Care Team Description 06/18/2020 Clinical Communication Department of Suhas Brown I., Appointment Orthopedic Surgery in [place], [place] [address] [facility] [address] [place] [phone] Social History Tobacco Use Types Packs/Day Years [...] or relatives? How often do you attend hinduism or cheondoism More than 4 time s per year 10/07/2020 services? Do you belong to any clubs or organizations No 10/07/2020 such as hinduism groups, unions, fraternal or athletic groups, or [...] place to sleep or slept in a half-way (including now)? Education Answer Date Recorded What is the highest level of school you have completed or 12 th grade 04/15/2019 the highest degree you have received? 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 - 06/19/2020 12:37 PM CDT I spoke to the patient today. She would like to get on the operative calendar for right hip a. We have tentatively picked out a date for her on July 11. She is aware that Dr. Brown is leaving the following day. Telephone Encounter - Brianna Stubbs - 06/18/2020 10:57 AM CDT Patient would like to schedule surgical date. Please call patient back at [phone]. Hortensia Mcdonough documented in this encounter Plan of Treatment Not on filedocumented as of this encounter Visit Diagnoses Not on filedocumented in this encounter
--- OUTSIDE RECORDS SUMMARY | 2022-02-13 12:13 | XMS_ITS | Encounter Summary ---
:1950 Author Organization [facility] Address [address] [place] [address] Care Team Providers Name Role Phone Unavailable Primary Care Provider Unavailable Reason for Visit Auth/Cert Specialty Diagnoses / Procedures Referred By Contact Refer red To Contact Diagnoses Primary Osteoarthritis Hip Right right hip osteoarthritis Procedures ARTHROPLASTY REPLACEMENT TOTAL HIP Referral ID Status Reason Start Date Expiration Date Visits Requ ested Visits Authorized [id number] 1 1 Encounter Details Date Type Department Care Team Description 07/11/2020 Surgery [facility] OR Suhsa Brown I., ARTHROPLASTY REPLACEMENT [address] [facility] TOTAL HIP. [place], [place] [address] [facility] [address] [place], [place] [phone] [id number] Social History Tobacco Use Types Packs/Day Years [...] or relatives? How often do you attend anabaptist or moravian More than 4 time s per year 10/07/2020 services? 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 - 07/12/2020 8:34 AM CDT DISCHARGE SUMMARY BRIEF OVERVIEW Hospital: [facility] Discharge Provider: Suhas Brown M.D. Primary Team: T Orthopedic Surgery - Kevin No primary care [...] ??? Dysfunction Thyroid ??? Embolus Pulmonary (HCC) 2016 ??? Gallbladder Disorder ??? Headache Unspecified ??? Hyperlipidemia ??? Other Injury Of Unspecified Body Region ??? Thromboembolism NOS Surgery Information This Encounter Past Procedures (07/13/2019 to Today) Date Procedures Providers Location 07/11/2020 ARTHROPLASTY REPLACEMENT TOTAL HIP. Suhas Brown M.D.Tamara Whittington M.D.Sneha Moreno P.A.Alesha., M.S. [facility] OR DISCHARGE DISPOSITION Home [...] acetaminophen (TYLENOL) Take 2 tablets 0 07/13/19 10/09/2020 500 mg tablet (1,000 mg total) [...] to prevent constipation. May substitute with other delf-grs-kzjqufa stool softeners. traMADoL (ULTRAM) 50 mg Take 1 tablet (50 mg 20 tablet 0 10/09/2020 tabletIndications: Acute total) by mouth Pain Exception every 6 (six) hours as needed for moderate pain or score 4-6 of 10 Indications: Acute Pain Exception. documented as of this encounter Progress Notes Andriy Isidro P.T., BhargaviP.Renate, A.T.CBrayan - 07/12/2020 12:58 PM CDT 07/12/20 1258 Plan Inpatient PT Received On Date 07/12/20 Requires Inpatient Follow-Up No Plan Discontinue PT PT Plan Comments Patient discharged to home, goals met, and equipment issued Nora Crespo P.T.A. - 07/12/2020 11:02 AM CDT Physical Therapy Inpatient Treatment Note SUBJECTIVE Patient's Name: Mindialeksandra Caba Referring/Attending: Suhas Brown M.D. Medical Diagnosis: [...] mask during therapy session: no Outcome Measures [facility] Inpatient Short Form: -[facility] Basic Mobility (V.2) How much help from [...] 3-5 steps with a railing?: A Little -[facility] Basic Mobility (V.2) Raw Score: 21 -[facility] Basic Mobility (V.2) Standardized Score: 45.55 Interpretation: Clinicians answer the -[facility] Inpatient Short Form based on observed [...] Inpatient Follow-Up: No Treatment interventions may include: GLAZIER METAL FURNITURE Visit Trackin Billing: Time Spent with Patient Therapeutic Activity (min): 32 min Total Timed Units (min): 32 min Total Treatment Time (min): 32 min Luis M WuTPaola Tamara Whittington M.D. - 07/12/2020 7:53 AM [...] 07/12/20 0354 07/12/20 0521 07/12/20 0526 07/12/20 0629 BP: 134/71 Patient Position: Semi-recumbent Pulse: 68 Heart Rate: Temp: 36.7 ??C Resp: 16 16 Height: Weight: SpO2: 97% TempSrc: Oral Pain [...] 6 pm, please page Kevin jung at [phone]. For urgent matters from 6 pm until 6 am, please page Nicolas Stallworth at [facility] [phone]. Tamara Whittington M.D. - 07/11/2020 2:16 PM CDT Orthopedic Service: [facility] Admission Day: 07/11/2020 Hospital Day: 0 [...] am until 6 pm, please page Kevin fabiana at [phone]. For urgent matters from 6 pm until 6 am, please page Ortho House at [facility] [phone]. documented in this encounter Consult Notes Destinee Oakley R.N. - 07/12/2020 3:02 PM CDT Discharge Planning Assessment SUBJECTIVE Referral Data Referral Source: Early Screen for Discharge Planning Referral Reason: Discharge Planning Discharge Planning: Early screen discharge Who was present during the interview?: Patient Sack Maker Services Used: No Patient Information Primary Caregiver: [...] Assistive Devices: Walker, Cane, Toilet riser, Eyeglasses, Coding Manager, Other (Comment)(sock aid, shoe horn, handheld shower [...] Communication: Talks, Can write, Understands speaking, Understands Austrian, Reads Environmental Supports Home Environment: House(One level, 2 small steps in w/grab bar, main bed/bath, walk in shower w/bench -hand held wand) Anticipated Modifications to the Patient's Home: None Anticipated Needs/Assistive Devices ADL Anticipated Needs: Shopping, Housekeeping, Meal Preparation, Transportation Use (drive car, use taxi/bus) Equipment Anticipated Needs: None Transportation Needs: Support from family Finance/Insurance Primary insurance: MEDICARE A AND B Secondary insurance: [employer] Does the Patient have any Financial Concerns?: [...] No(Nnamdi) ASSESSMENT / PLAN Plan Assessment: The corner trimmer operator met with Mindi Caba to discuss her current hospitalization and home going needs. The patient was unaccompanied. The patient was a reliable historian. The role of corner trimmer operator was reviewed. The patient reviewed her prior level of care and support system. The patient receives support from her , daughter, son and extended family. The patient described her living environment as a home with bedroom and bathroom on same floor with stairs to enter without rails. Housekeeping, grocery shopping, meal prep, and other household responsibilities have previously been completed by patient. corner trimmer operator discussed the patient's potential needs at dismissal [...] chart and meeting with the patient, the corner trimmer operator deemed the LACE+/readmission questions were not necessary. [...] dismissal will be provided by family--Nnamdi. 3. corner trimmer operator recommended reaching out to family, friends, and neighbors for assistance. 4. corner trimmer operator provided information regarding the dismissal process. 5. corner trimmer operator placed or requested the following hospital-based consult orders and/or referrals:None. 6. corner trimmer operator will continue to assess for homegoing needs with the interdisciplinary team. 7. corner trimmer operator encouraged the patient to reach out with any questions/concerns. Care Management will continue to follow. Signed by: Destinee Oakley R.N. 07/12/2020 Katherine Camarena - 07/12/2020 12:35 PM CDT Occupational Therapy Acute Hospital Inpatient Evaluation/Treatment SUBJECTIVE Patient's Name: Mindi Ceja Rosales Referring/Attending Provider: Suhas Brown M.D. Medical Diagnosis: [...] TOTAL HIP.; Surgeon: Suhas Brown M.D.; Location: [facility] OR ??? ARTHROPLASTY REPLACEMENT TOTAL KNEE Left 12/09/2017 Procedure: ARTHROPLASTY REPLACEMENT TOTAL KNEE.; Surgeon: Suhas Brown M.D.; Location: [facility] OR ??? ARTHROSCOPY KNEE Left 2003 [...] 05/02/2012 >Right total knee arthroplasty utilizing a [place] Triathlon size 4 posterior- stabilized femur; a [...] Role: Retired Prior Mobility/Functional Transfers Level of Petroleum: Independent Gait Devices/Wheelchair Used: Front wheeled walker, [...] Accessibility: Yes Home Equipment Home Adaptive Equipment: Coding Manager, Sock aid, Long-handled shoe horn, Long-handled sponge [...] Delivery: Assessed, Educated LE Dressing Adaptive Equipment: Coding Manager, Long shoe horn, Sock aid LE Dressing Items Included: Socks, Pants LE Dressing Level of Assistance: Modified independent LE Dressing Comments: Education provided on how to use fish conservationist and sock aide to assist with lower [...] dressing. Handouts provided today: Home Safety Suggestions [id number] Team Communication: Patient's nurse was contacted and patient's status was discussed Outcome Measures [facility] Inpatient Short Form: Putting on and taking [...] Standardized Score: 47.1 Interpretation: Clinicians answer the [facility] Inpatient Short Form based on observed patient [...] the evaluation and/or treatment. Andriy Isidro P.T., D.P.T., A.T.C. - 07/11/2020 4:45 PM CDT Physical [...] TOTAL KNEE.; Surgeon: Suhas Brown M.D.; Location: [facility] OR ??? ARTHROSCOPY KNEE Left 2003 ??? BACK SURGERY 2002 L4 and L5 fusion ??? BARIATRIC SURGERY 2008 ??? BUNIONECTOMY Right 2007 ??? CARPAL TUNNEL RELEASE Bilateral 1988 ??? SECTION 1984 ??? SECTION ??? CHOLECYSTECTOMY 2001 ??? HIATAL HERNIA REPAIR 2008 ??? HIP ARTHROPLASTY TOTAL Left 07/18/2015 hip arthroplasty total ??? JOINT REPLACEMENT ??? KNEE ARTHROPLASTY Right 05/02/2012 >Right total knee arthroplasty utilizing a [place] Triathlon size 4 posterior- stabilized femur; a [...] Role: Retired Prior Mobility/Functional Transfers Level of Petroleum: Independent Home Equipment Gait Devices Owned: Front-wheeled [...] provided today: Rehabilitation After Total Hip Replacement ([id number]) The patient/family educated on safe transfer techniques [...] 3-5 steps with a railing?: A Lot -[facility] Basic Mobility (V.2) Raw Score: 20 -[facility] Basic Mobility (V.2) Standardized Score: 43.99 Interpretation: Clinicians answer the [facility] Inpatient Short Form based on observed patient [...] Time (min): 32 min Andriy Isidro P.T., ReaganT., A.T.C. documented in this encounter Nursing Notes Sneha Byrne O.T., BCPR - 07/12/2020 2:40 PM CDT Re: Mindi Caba : 1950 Diagnoses: @DIAGPRIM@ I certify that the rehabilitation services associated with this encounter are required and authorized by nv, and that the patient's plan will be reviewed as needed or by end of current plan of care stated. Health Care Provider Signature: per electronic cosignature Sebastián Chopra R.N. - 07/12/2020 2:26 PM CDT Shift Goals: Clinical Goals for the Shift: Pain management, DC to home Identify possible barriers to meeting goals/advancing plan of care: none End of Shift Summary: Goals met. Adequate for discharge. Patient discharged from [facility] [address] at 2:27 PM CDT to Home Self Care. Transportation provided by family. Patient's dismissal medications:Duricef,Oxycodone, Tramadol and Lovenox were filled at [facility] pharmacy. Problem: SAFETY ADULT Goal: Maintain [...] identified Outcome: Adequate for Discharge Sebastián Chopra RBrayanN. - 07/11/2020 7:41 PM CDT Shift Goals: Post operative cares Identify possible barriers to meeting goals/advancing plan of care: none End of Shift Summary: Goals met. Pain well managed with oral medications. Up with PT successfully, Assist of [address] [facility] tomorrow. Problem: SAFETY ADULT Goal: Maintain a safe environment Outcome: Progressing Problem: SAFETY ADULT - RISK FOR FALL AND OR FALL INJURY Goal: Patient remains free from fall/fall injury Outcome: Progressing documented in this encounter OR Notes Op Note - Suhas Brown M.D. - 07/11/2020 9:58 AM CDT Pre-op Diagnosis Primary Osteoarthritis Hip Right Post-op Diagnosis Primary Osteoarthritis Hip Right A first mate actively participated and was necessary for one or more of the following: opening,exposure and visualization during the case, maintaining hemostasis, wound closure resulting in its safe and expeditious completion. Findings As expected. Complications None Description of Procedure Description of Procedure Primary uncemented total hip arthroplasty ?? CPT Code: 67335 ?? INDICATION Hip pain. ?? PREOP DIAGNOSIS [...] Donor Screen Test (07/11/2020 2:44 PM CDT) [facility] Method Time Signature HBsAg Screen Non-reacti [...] PM 07/12/19 2:56 Venous) CDT PM CDT Narrative [facility] - 07/15/2020 8:52 AM CDT Specimen Information: Specimen ID: [id number] Specimen Type: Blood Specimen Collection Start Date: 07/12/19 ??2:44 PM Specimen Received Date: 07/11/2020 ??2:5 6 PM Specimen ID: [id number] Specimen Type: Blood Specimen Collection Start Date: 07/12/19 ??2:44 PM Specimen Received Date: 07/11/2020 ??2:5 6 PM Specimen ID: [id number] Specimen Type: Blood Specimen Collection Start Date: 07/12/19 ??2:44 PM Specimen Received Date: 07/11/2020 ??2:5 5 PM Specimen ID: [id number] Specimen Type: Blood Specimen Collection Start Date: 07/12/19 ??2:45 PM Specimen Received Date: 07/11/2020 ??2:5 5 PM César Connelly M.D., Ph.D. LAB BLOOD NON ADD-ON Performing Organization Address City/State/ZIP Code Phon e Number [facility] [address] [place] [address] TEST[place] [address] [facility] [address]. DX Hip Right 2-3 Views (07/11/2020 12:03 [...] Negative for PO purposes. Sneha Moreno P.A.-C., M.SBrayan IMG DIAGNOSTIC IMAGING AR OCEDURES DX Hip Right 1 View (07/11/2020 [...] Image obtained during a right ELSY. Suhas HANNAH DIAGNOSTIC IMAGING PROCE BIGG Bacteria Culture, Donor (07/11/2020 10:12 AM CDT) [facility] gist Method Time Signature Bacteria No [...] Address City/State/ZIP Code Phon e Number [facility] - [address] [place], [place] [address] [facility] [place] [address] Laboratories-[facility] [address] documented in this encounter Visit Diagnoses Diagnosis Pain Hip Right - Primary Primary Osteoarthritis Hip Right Aftercare Total Hip Arthroplasty Primary Osteoarthritis Hip Right documented in this encounter Admitting [...] First dose on Milly 07/11/20 at 2100 ropivacaine (PF) 200 mg, Given 07/11/2020 10:36 AM CDT 60 mL Right Upper Hip EPINEPHrine 150 mcg, ketorolac 15 mg in NaCl 0.9% 60 mL injection (ARTHROPLASTY BLOCK 100+ kg) 60 mL, infiltration, Once in surgery, OR use only, Starting on Milly 07/11/20 at 0802, For 1 dose, Intra-Op, *Not for IV use* ropivacaine (PF) 200 mg, Given 07/11/2020 10:36 AM CDT 60 mL Right Upper Hip EPINEPHrine 150 mcg, ketorolac 15 mg in NaCl 0.9% 60 mL injection (ARTHROPLASTY BLOCK 100+ kg) 60 mL, infiltration, Once in surgery, OR use only, Starting on Milly 07/11/20 at 0802, For 1 dose, Intra-Op, *Not for IV use* sennosides-docusate sodium 8.6-50 mg per Given 07/12/2020 [...] 07/12/2020 acetaminophen tablet 1,000 mg (TYLENOL) (COMPLETED) 08 (Given - Provider: Shayne Kennedy R.N.) 1,000 mg, oral, Once, On Wed07/11/20 at 0830, For 1 dose acetaminophen tablet 1,000 mg (TYLENOL) 1451 (Given - Provider: Sebastián Chopra R.N.)2140 (Given - Provider: Genie Clements) 0246 (Given - Provider: Margaux Posadas R.N.)0907 (Given - Provider: Sebastián Chopra R.N.)1500 (Due) [...] dextrose (iso-os) IVPB 2 g (ANCEF) (COMPLETED) 174 (New Bag - Provider: Sebastián Chopra R.N.) 024 (New Bag - Provider: Margaux amor RBrayanNBrayan) 2 g, intravenous, at 200 mL/hr, Administ er over 30 Minutes, Every 8 hours, First dose on Wed07/11/20 at 1800, For 2 doses, Start within 8 hours of last IV dose., Drug Monitoring Program: Pharmacist to a djust medication dosing based on indicat ion and drug clearance factors., Indications: Prophylaxis, surgical ceFAZolin injection 2 g (ANCEF) (COMPLETED) 09 (Given - Provider: Kavin Ingram APRN, PULP MILL TEAM LEADER) 2 g, intravenous, Once, On Milly 07/11/20 a t 0815, For 1 dose, Intra-Op, [...] bedtime, First dose on Wed07/11/20 at 2100 oxybutynin 24 hr tablet 10 mg (DITROPAN-XL) 2138 (Given - Provider: Genie Clements) 906 (Given - Provider: Sebastián braun R.N.) 10 mg, oral, 2 times daily, First [...] Genie Clements) 906 (Given - Provider: Sebastián T Wallac e, R.N.) 1 tablet, oral, 2 times daily, First dos e on Milly 07/11/20 at 2100, Do not give if patient has diarrhea. tranexamic acid in NaCl IVPB 1,000 mg (CYKLOKAPRON) (COMPLET ED) 0951 (Given - Provider: Kavin Ingram APRN, PULP MILL TEAM LEADER) 1,000 mg (1 g), intravenous, at 300 mL/h r, Administer over 20 Minutes, Once, On Milly 07/11/20 at 0815, For 1 dose, Intra-Op, Administer in OR upon induction tranexamic acid in NaCl IVPB 1,000 mg (CYKLOKAPRON) (COMPLET ED) 1035 (Given - Provider: Karla Cardoso APRN, PULP MILL TEAM LEADER) 1,000 mg (1 g), intravenous, at 300 mL/h r, Administer over 20 Minutes, Once, On Milly 07/11/20 at 0815, For 1 dose, Intra-Op, Administer in OR just before dropping tourniquet Continuous Medication Order 07/10/2020 07/11/2020 07/12/2020 lactated ringers 1221 (Continued from OR - Provider: Katie Gee, R.N.) 20 mL/hr, intravenous, Continuous, Start ing on Milly 07/11/20 at 1145, PACU & Post-Op PRN Medication Order 07/10/2020 07/11/2020 07/12/2020 calcium carbonate chewable tablet 400 mg of calcium (TUMS) 1451 (Given - Provider: Sebastián Chopra, R.N.)1902 (Given - Provider: Kendra Lemus R.N., ONC) 0521 (Given - Provider: Chay odonnell, M.S.N., R.N.) 400 mg of calcium, oral, Every 2 hour AR N, indigestion, Starting on Milly 07/11/20 at [...] (SUBLIMAZE) (CANCELED) 1229 (Given - Provider: Katie Gee R.N.)1232 (Given - Provider: Katie Gee R.N.)1235 (Given - Provider: Katie Gee R.N.)1239 [...] (CANCELED) 1241 (Given - Provider: Katie Gee RIris)1243 (Given - Provider: Sandy MalloyNBrayan) 0.2 mg, intravenous, Every 5 min PRN, [...] (ZOFRAN) 1451 (Given - Provider: Sebastián Chopra RIris) 4 mg, intravenous, Every 6 hours PRN, na usea, vomiting, Starting on Milly 07/11/20 at 1405, For 48 hours, Reassess for nausea or vomiting after at least 10 minutes. If nausea or vomiting persists administe r next ordered antiemetic medications (o rder for antiemetic medication administration ondansetron then droperidol then promethazine). oxyCODONE IR tablet 10 mg (ROXICODONE) (COMPLETED) 1214 (Given - Provider: Katie Gee, R.NBrayan) 10 mg, oral, Once as needed, For pain 4 or greater, Starting on Milly 07/11/20 at 1208, For 1 dose, PACU (only) oxyCODONE IR tablet 10 mg (ROXICODONE) (CANCELED) 1742 (Given - Provider: Sebastián Chopra RIris)2140 (Given - Provider: Genie Clements) 10 mg, oral, Every 4 hours PRN, severe p ain or score 7-10 of 10, Starting on Milly 07/11/20 at 1405, Second line therapy. If patient is greater than 7 after 2 hours, call service for new order. oxyCODONE IR tablet 10 mg (ROXICODONE)(Linked Group 1) 3349 (Given - Provider: Marcial CollinsS.Ramonita, R.N.)1353 (Given - Provider: Sebastián Chopra RIris) 10 mg, oral, Every 3 hours PRN, severe p ain or score 7-10 of 10, Starting on Milly 07/11/20 at 2200, Second line therapy. If patient is greater than 7 after 2 hours, call service for new order. oxyCODONE IR tablet 5 mg (ROXICODONE)(Linked Group 1) 0521 (See Alternative - Provider: Arden Collins., R.N.)1356 (See Alternative - Provider: Sebastián Chopra [...] traMADoL tablet 50 mg (ULTRAM)(Linked Group 2) 1544 (See Alternative - Provider: Sebastián Chopra R.N.) [...]
--- OUTSIDE RECORDS SUMMARY | 2022-02-13 12:13 | XMS_ITS | Encounter Summary ---
:1950 Author Organization [facility] Address [address] [place] [address] Care Team Providers Name Role Phone Unavailable Primary Care Provider Unavailable Reason for Visit Auth/Cert Specialty Diagnoses / Procedures Referred By Contact Refer red To Contact Diagnoses Primary Osteoarthritis Hip Right right hip osteoarthritis Procedures ARTHROPLASTY REPLACEMENT TOTAL HIP Referral ID Status Reason Start Date Expiration Date Visits Requ ested Visits Authorized [id number] 1 1 Encounter Details Date Type Department Care Team Description 07/11/2020 Anesthesia Event RST ROEI MAIN OR Brandt Amador, [address] [facility] M.BBrayan, [place] [address] [address] [facility] [phone] [place] [address] (Wo rk) Anesthesia Record Procedure Summary Procedure Name Responsible Anesthesia Start Anesthesia Stop Anesthesiologist Time Time ARTHROPLASTY Brandt Amador M.B., 07/11/20 0916 07/11/20 1205 REPLACEMENT TOTAL HIP. Ch.B. (Right: Hip) Events Date Time Event Comment 07/11/2020 0916 An Start Machine/Equipmen t Checked Infection Precautions Foll owed Procedure/Site Verified NPO Sta tus Verified Supine Standard ASA Mon itors Applied 0921 An Induction 0926 An Intubation 0943 Turnover to Proceduralist 0958 Proc Start 1135 Proc Fin 1143 Turnover to ANE Staff 1145 Airway Removal Criteria Met 1151 Extubation/Airway Removed 1153 an stop data 1205 An End I completed my h andoff to the receiving staff during [facility] we 1. Identified the patient 2. Ident ified the responsible provider 3. Revi ewed the pertinent medical history 4. Discussed the surgical course 5. Review ed intra-op anesthesia management and i ssues during anesthesia 6. Set expectati ons for post-procedure period 7. Allowe d opportunity for questions and ac knowledgement of understanding. Name Total fentanyl injection 50 mcg/mL 200 mcg lidocaine 2% (mg) injection 100 mg propofol 10 mg/mL 150 mg propofol 10 mg/mL infusion 458.15 mg succinylcholine 20 mg/mL injection 140 mg ondansetron 4 mg/2 mL injection 4 mg ceFAZolin injection 2 g (ANCEF) 2 g tranexamic acid in NaCl IVPB 1,000 mg (CYKLOKAPRON) 1 g tranexamic acid in NaCl IVPB 1,000 mg (CYKLOKAPRON) 1 g ePHEDrine PF 5 mg/mL syringe injection 40 mg dexamethasone 4 mg/mL injection 4 mg haloperidol 5 mg/mL injection 1 mg ketamine 10 mg/mL injection 20 mg HYDROmorphone 1 mg/mL injection 0.4 mg Lactated Ringers Free Drip 1,200 mL Agents No agents on file. Blood No blood administrations on file. Lines, Drains, and Airways Type Details Placement Removal (RETIRED) Incision 12/09/17; 915; Knee; 12/09/17 0916 by 1418 by Left; ADH Anika [facility] noreen-Backgroun 0.7ML (x2), DRSG GZ 16 M, B.S., B.S.N., d, Sched uling PLY 4X4 (x1), DRSG MATERIALS PLANNER R.N. Automated Batch Job WND ABD ABS 8X10 (x1), BNDG HANS NSTRL 6 DBL (x1); 12/17/20 (Removed by background completion utility); 1418 (Removed by background completion utility) Peripheral IV Placement Date: 07/11/20; 07/11/20 0754 by 07/12 142 by Placement Time: 753; Kale Marquez, Sebastián Chopra T, Catheter Size: 22 G; R.N. R.N. Orientation: Right; Location: Hand; Site Prep: Chlorhexidine (Preferred); Technique: Anatomical landmarks; Inserted by: abs; Insertion Attempts: 1; Removal Date: 07/12/20; Removal Time: 142 ETT Placement Date: 07/11/20; 07/11/20 09 by 07/11 115 by Placement Time: 925 Karla Cardoso, Farzaneh Cardoso, (created via procedure GIO MANCILLA APRN, CRN A documentation); Mask Ventilation: Difficult mask (ie. two-handed) without oral airway; Type: Standard ETT; Single Lumen Tube Size: 7 mm; Cuffed: Yes; Location: Oral; Grade View: Grade 1; Insertion Attempts: 1; Placement Verification: Bilateral breath sounds, Positive ETCO2, Symmetrical chest wall movement; Removal Date: 07/11/20; Removal Time: 115 Peripheral IV Placement Date: 07/11/20; 07/11/20 09 by 07/12 142 by Placement Time: 928; Karla Cardoso Wallace, Kendall T, Catheter Size: 20 G; GIO MANCILLA R.N. Orientation: Left; Location: Hand; Removal Date: 07/12/20; Removal Time: 1419; Removal Reason: Patient discharged (RETIRED) Incision 07/11/20; 1059; Hip; 07/11/20 1059 by 1 1418 by Right; 12/17/20 (Removed Henrietta Vidal A, Angelic p-Opipdi-Imbifkhmp by background completion R.N. d, [employer] irma utility); 1418 (Removed Automate d Batch Job by background completion utility) documented in this encounter Social History Tobacco [...] or relatives? How often do you attend religious or mu-ism More than 4 time s per year 10/07/2020 services? Do you belong to any clubs or organizations No 10/07/2020 such as religious groups, unions, fraternal or athletic groups, or [...] place to sleep or slept in a chcf (including now)? Education Answer Date Recorded What is the highest level of school you have completed or 12 th grade 04/15/2019 the highest degree you have received? 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 - 07/11/2020 12:26 PM CDT Patient: Mindi Caba Procedure Summary Date: 07/11/20 Room / Location: [place] [address] / [facility] in [place], [place] Anesthesia Start: 0916 Anesthesia Stop: 1205 Procedure: ARTHROPLASTY REPLACEMENT TOTAL HIP. (Right Hip) Diagnosis: Primary Osteoarthritis Hip Right (right hip osteoarthritis.) Providers: Suhas Brown M.D. Responsible Provider: Brandt Amador M.B., Ch.B. Anesthesia Type: general ASA Status: 3 Anesthesia Type: general Last vitals Vitals Value Taken Time BP 170/87 07/11/20 1215 Temp 36.4 ??C 07/11/20 1215 Pulse 78 07/11/20 1215 Resp 16 07/11/20 1226 SpO2 99 % 07/11/20 1215 Vitals shown include unvalidated device data. Please reference Vitals flowsheet for most recent vital signs. Anesthesia Post Evaluation Patient Disposition: general care unit Cardiovascular status: hemodynamics (HR & BP) acceptable Respiratory status: patent airway with spontaneous effort Temperature: normothermic Oxygen requirements: nasal cannula Level of consciousness: awake Pain score: pain adequately controlled and/or at baseline Post Op nausea/vomiting: none Hydration status: euvolemic Anesthesia Procedure Notes - Karla Cardoso APRN, CRNA - 07/11/2020 9:58 AM CDTAssociated Order(s): Airway Airway Date/Time: 07/11/2020 9:26 AM Performed by: Karla Cardoso APRN, CRNA Authorized by: Brandt Amador M.B., Ch.B. Care team members present 1. Karla Cardoso APRN, CRNA 3. Brandt Amador M.B., Ch.BBrayan Patient location during procedure: OR / Procedure Area PROCEDURE DETAILS: Mask difficulty assessment: difficult mask (i.e.two-handed) without oral airway Final airway type: video laryngoscope Laryngeal Manipulation: no Final best view of glottic structures - Cormack/Lehane Score: grade 1 ETT location: oral VL device: glide scope Adult tube size: 7 Adult ETT distance at teeth/gum: 22 Oral tube type: standard ETT Cuffed: yes Number of attempt to successful placement: 1 Airway confirmation: bilateral breath sounds, positive ETCO2 and bilateral chest rise Other previous techniques attempted: none PRE PROCEDURE DETAILS: Pre evaluation for airway management: procedure Urgency: elective Preop assessment of probable difficulty: questionable / suspicious difficult airway Preoxygenation: bag valve mask SEDATION / ANESTHESIA Anesthesia method: anesthesia POST PROCEDURE DETAILS: Procedure outcome: successful Airway event: no complications Anesthesia Preprocedure Evaluation - Brandt Amador M.B., Ch.B. - 07/11/2020 8:44 AM CDT Preprocedure Anesthesia & H&P Assessment Procedure Summary Date/Time: 07/11/20 1006 Procedure: ARTHROPLASTY REPLACEMENT TOTAL HIP. (Right Hip) Diagnosis: Primary Osteoarthritis Hip Right [M16.11] Pre-op diagnosis: right hip osteoarthritis. Location: [place] [address] / [facility] in [place], [place] Providers: Suhas Brown M.D. Pertinent components of the patient's history including current problem list, medical history, surgical history, family history, social history, medications and allergies were reviewed. Present illnessand pre-op diagnosis were confirmed. The planned surgery / procedure was verified with the patient /legal guardian. 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 (+) Restless Leg Syndrome OBJECTIVE PHYSICAL EXAMINATION Airway (HEENT) Mallampati: IV TM Distance: >3 FB Neck ROM: Full Mouth Opening: >3 cm Cardiovascular Rhythm: Regular Rate: Normal Cardiovascular Assessment: cardiovascular normal Functional Capacity: >4 METS Pulmonary Pulmonary Assessment: Clear General / Constitutional Constitutional Assessment: Obese Neurological Neurologic Assessment:??alert Dental Dental Assessment: dentition intact ASSESSMENT / PLAN ANESTHESIA PLAN ASA: 3 Anesthesia Plan: general Patient seen and allergies reviewed, anesthesia plan and risks discussed directly with patient /legal guardian or through an interpreter for the deaf. The use of blood products not discussed Approval to Proceed: approved for anesthesia documented in this encounter Plan of Treatment Not on filedocumented as of this encounter Procedures Procedure Name Priority Date/Time Associated Comments Diagnosis LDA ANE ENDOTRACHEAL Routine 07/11/2020 9:58 AM R esults for this AIRWAY CDT procedure are i n the results section. documented in this encounter Results LDA ANE ENDOTRACHEAL AIRWAY (07/11/2020 9:58 AM CDT) Narrative Karla Cardoso APRN, CRNA - 07/11/2020 9:58 AM CDT Karla Cardoso APRN, CRNA ? 07/11/2020 ??9:59 AM Airway Date/Time: 07/11/2020 9:26 AM Performed by: Karla Cardoso APRN, CRN A Authorized by: Brandt Amador M.B., C h.B. Care team members present 1. Karla Cardoso APRN, CRNA 3. Brandt Amador M.B., Ch.B. Patient location during procedure: OR / Procedure Area PROCEDURE DETAILS: Mask difficulty assessment: difficult ma sk (i.e.two-handed) without oral airway Final airway type: video laryngoscope Laryngeal Manipulation: no ?? Final best view of glottic structures - Cormack/Lehane Score: grade 1 ETT location: oral VL device: glide scope Adult tube size: 7 Adult ETT distance at teeth/gum: 22 Oral tube type: standard ETT Cuffed: yes Number of attempt to successful placemen t: 1 Airway confirmation: bilateral breath so unds, positive ETCO2 and bilateral chest rise Other previous techniques attempted: non e PRE PROCEDURE DETAILS: Pre evaluation for airway management: pr ocedure Urgency: elective Preop assessment of probable difficulty: questionable / suspicious difficult airway Preoxygenation: bag valve mask SEDATION / ANESTHESIA Anesthesia method: anesthesia POST PROCEDURE DETAILS: ? Procedure outcome: successful ?? Airway event: no complications Brandt Fenton, Madelyn ANESTHESIA ORDERABLES documented in this encounter Visit Diagnoses Not on filedocumented in this encounter Administered Medications Inactive Administered Medications - up to 3 most recent administrations Medication Order MAR Action Action Date Dose Rate Site ceFAZolin injection 2 g (ANCEF) Given 07/11/2020 9:51 AM CDT 2 g 2 g, intravenous, Once, On Milly 07/11/20 at 0815, For 1 dose, Intra-Op, Administer within 1 hour prior to surgical incision If needed, reconstitute vial per package insert instructions. See IVAG for administration guidelines. , , Drug Monitoring Program: Pharmacist to adjust medication dosing based on indication and drug clearance factors., Indications: Prophylaxis, surgical dexAMETHasone injection (DECADRON) Given 07/11/2020 10:14 AM CDT 4 mg As needed, Starting on Milly 07/11/20 at 1014, Anesthesia Intra-op ePHEDrine (PF) injection Given 07/11/2020 10:52 AM CDT 10 mg As needed, Starting on Milly 07/11/20 at 1006, Anesthesia Intra-op Given 07/11/2020 10:37 AM CDT 10 mg Given 07/11/2020 10:27 AM CDT 10 mg fentaNYL injection (SUBLIMAZE) Given 07/11/2020 11:20 AM CDT 50 mcg intravenous, As needed, Starting on Milly 07/11/20 at 0951, Anesthesia Intra-op Given 07/11/2020 9:51 AM CDT 100 mcg Given 07/11/2020 9:23 AM CDT 50 mcg haloperidol lactate injection (HALDOL) Given 07/11/2020 10:14 AM CDT 1 mg As needed, Starting on Milly 07/11/20 at 1014, Anesthesia Intra-op HYDROmorphone injection (DILAUDID) Given 07/11/2020 10:27 AM CDT 0.4 mg As needed, Starting on Milly 07/11/20 at 1027, Anesthesia Intra-op ketamine injection (KETALAR) Given 07/11/2020 10:35 AM CDT 10 mg As needed, Starting on Milly 07/11/20 at 1017, Anesthesia Intra-op Given 07/11/2020 10:17 AM CDT 10 mg lactated ringers New Bag 07/11/2020 10:36 AM CDT intravenous, Continuous Infusion: Per Instructions PRN, Starting on Milly 07/11/20 at 0918, Anesthesia Intra-op New Bag 07/11/2020 9:18 AM CDT lidocaine (PF) (cardiac) injection Given 07/11/2020 9:23 AM CDT 100 mg intravenous, As needed, Starting on Milly 07/11/20 at 0954, Anesthesia Intra-op ondansetron (PF) injection (ZOFRAN) Given 07/11/2020 10:35 AM CDT 4 mg intravenous, As needed, Starting on Milly 07/11/20 at 1035, Anesthesia Intra-op propofol 10 mg/mL infusion New Bag 07/11/2020 9:28 AM 50 mcg/kg/mi n 35.7 mL/hr (DIPRIVAN) CDT intravenous, Continuous Infusion: Per Instructions PRN, Starting on Milly 07/11/20 at 0928, Anesthesia Intra-op propofoL injection (DIPRIVAN) Given 07/11/2020 9:23 AM CDT 150 mg As needed, Starting on Milly 07/11/20 at 0923, Anesthesia Intra-op succinylcholine (PF) injection (ANECTINE ) Given 07/11/2020 9:23 AM CDT 140 mg As needed, Starting on Milly 07/11/20 at 0923, Anesthesia Intra-op tranexamic acid in NaCl IVPB 1,000 mg Given 07/11/2020 9:51 AM C DT 1 g (CYKLOKAPRON) 1,000 mg (1 g), intravenous, at 300 mL/hr, Administer over 20 Minutes, Once, On Milly 07/11/20 at 0815, For 1 dose, Intra-Op, Administer in OR upon induction tranexamic acid in NaCl IVPB 1,000 mg Given 07/11/2020 10:35 AM CDT 1 g (CYKLOKAPRON) 1,000 mg (1 g), intravenous, at 300 mL/hr, Administer over 20 Minutes, Once, On Milly 07/11/20 at 0815, For 1 dose, Intra-Op, Administer in OR just before dropping tourniquet documented in this encounter
--- OUTSIDE RECORDS SUMMARY | 2022-02-13 12:13 | XMS_ITS | Encounter Summary ---
:1950 Author Organization [facility] Address [address] [place] [address] Care Team Providers Name Role Phone Unavailable Primary Care Provider Unavailable Encounter Details Date Type Department Care Team Description 07/09/2020 Lab Department of Laboratory Sneha Moreno, Contact With And (Suspected) Exposure To COVID-19; Medicine and Pathology, P.A.-C., M.S. Encounter For Preprocedural Laboratory E xamination (COVID-19) [facility], in [address] [place] [address] [place] [address] [place] [address] [phone] Social History Tobacco Use Types Packs/Day Years [...] or relatives? How often do you attend islam or christian More than 4 time s per year 10/07/2020 services? Do you belong to any clubs or organizations No 10/07/2020 such as islam groups, unions, fraternal or athletic groups, or [...] place to sleep or slept in a custodial (including now)? Education Answer Date Recorded What is the highest level of school you have completed or 12 th grade 04/15/2019 the highest degree you have received? 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 Preprocedural Laboratory Examination (COVID-19) documented in this encounter Results SARS CoV-2 RNA, PCR, Varies Asymptomatic (07/09/2020 11:42 AM CDT) [facility] Method Time Signature SARS CoV-2 Swab, 07/09/2020 DTL RNA, PCR, Nasopharynx 5:58 PM CDT Source SARS CoV-2 Undetected Undetected 07/09/2020 DTL RNA, PCR 5:58 PM CDT Comment: SARS-CoV-2 RNA absent. This result does not rule out COVID-19 in the patient, as the sensitivity of the test depends o n the timing of the specimen collection and quality of the specimen. Result should be correlated with patient's history and clinical presentat ion. ----ADDITIONAL INFORMATION---- This RT-PCR test has received Emergency Use Authorization (EUA) by the U.S. Food and Drug Administration an d is used per traveling buyer's instructions. Performance characteristics were verified by [facility] in a manner consistent with CLIA requirements. Visit the CDC website: https://www.cdc.g ov/coronavirus/ for the most recent guidelines on Coron avirus testing. Fact Sheet for Healthcare Providers: https://www.fda.gov/media/156290/downloa d Fact Sheet for Patients: https://www.fda.gov/media/966693/downloa d Specimen Anatomical Collection Method Collection Time Receive d Time (Source) Location / / Volume Laterality Varies 07/09/2020 11:42 07/09/2020 (Nasopharynx) AM CDT 12:33 PM CDT Sneha M Edquist P.A.-C., M.S. LAB MICROBIOLOGY - GENERA L ORDERABLES Performing Organization Address City/State/ZIP Code Phon e Number [facility] - [address] [place], [place] [address] [facility] [place] [address] [facility] [address] documented in this encounter Visit Diagnoses Diagnosis Contact With And (Suspected) Exposure To COVID-19 Encounter For Preprocedural Laboratory E xamination (COVID-19) documented in this encounter Additional Health Concerns Infection Onset Date Last Indicated Resolved Time COVID19 Pending 07/09/2020 07/09/2020 07/09/2020 5:59 PM CDT documented as of this encounter
--- OUTSIDE RECORDS SUMMARY | 2022-02-13 12:13 | XMS_ITS | Encounter Summary ---
:1950 Author Organization [facility] Address [address] [place] [address] Care Team Providers Name Role Phone Unavailable Primary Care Provider Unavailable Encounter Details Date Type Department Care Team Description 06/18/2020 Ancillary Procedure Department of Orthopedic Surgery, [place] Social History Tobacco Use Types Packs/Day Years [...] or relatives? How often do you attend taoism or episcopalian More than 4 time s per year 10/07/2020 services? Do you belong to any clubs or organizations No 10/07/2020 such as taoism groups, unions, fraternal or athletic groups, or [...] place to sleep or slept in a fpc (including now)? Education Answer Date Recorded What is the highest level of school you have completed or 12 th grade 04/15/2019 the highest degree you have received? 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 documented in this encounter Results DX HIP AND PELVIS RIGHT 2-3 VIEWS-Orthopedic Surgery Image Exam (06/18/2020 8:20 AM [facility]) Specimen (Source) Anatomical Location Collection Method / Collectio n Time Received Time / Laterality Volume Narrative [facility] - 07/10/2020 5:55 AM [facility] This order has been created and auto-finalized to support the import of images acquired without order. The clini jie documentation to support these images can be found on the encounter randolph t produced images. Provider Not In System IMG NON RAD IMAGING PROCEDUR ES Performing Organization Address City/State/ZIP Code Phon e Number [facility] NA documented in this encounter Visit Diagnoses Not on filedocumented in this encounter
--- OUTSIDE RECORDS SUMMARY | 2022-02-13 12:13 | XMS_ITS | Encounter Summary ---
:1950 Author Organization [facility] Address [address] [place] [address] Care Team Providers Name Role Phone Unavailable Primary Care Provider Unavailable Encounter Details Date Type Department Care Team Description 07/09/2020 Hospital Encounter Department of Sneha Moreno Primary Osteoarthritis Hip Right; Laboratory Medicine Gina Ceja, Preopera tive Exam and Pathology, Jose Corona, in [address] [place] [id number] [place] [address] [place], [place] (Work) [phone] Social History Tobacco Use Types Packs/Day Years [...] or relatives? How often do you attend episcopalian or zoroastrian More than 4 time s per year 10/07/2020 services? 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 cholecalciferol (VITAMIN Take 4,000 Units by 0 D3) 50 mcg (2,000 Unit) mouth every morning. tablet famotidine-Ca carb-mag Chew 1 tablet daily. 0 hydrox (PEPCID COMPLETE) 10-800-165 mg chewable tablet guaiFENesin (MUCINEX) Take 600 mg by mouth 0 600 mg 12 hr tablet as needed for congestion. levothyroxine Take 125 mcg by 0 (SYNTHROID, [...] 50 mg by mouth 0 every morning. cefadroxil (DURICEF) 500 Take 1 capsule (500 [...] to prevent constipation. May substitute with other yfyc-[id number]-[id number] stool softeners. traMADoL (ULTRAM) 50 mg Take 1 tablet (50 mg 20 tablet 0 10/09/2020 tabletIndications: Acute total) by mouth Pain Exception every 6 (six) hours as needed for moderate pain or score 4-6 of 10 Indications: Acute Pain Exception. documented as of this encounter Plan of Treatment Not on filedocumented as of this encounter Procedures Procedure Name Priority Date/Time Associated Diagnosis Comme nts NT-PRO B-TYPE Routine 07/09/2020 10:08 Preoperative Exam Resul ts for this NATRIURETIC PEPTIDE AM CDT procedur e are in (BNP), S the results section. ANTIBODY Routine 07/09/2020 10:08 Results for this IDENTIFICATION AM CDT procedure are in the results section. CBC WITHOUT Routine 07/09/2020 10:08 Primary Results for this DIFFERENTIAL, B AM CDT Osteoarthritis Hip proced ure are in Right the results section. TYPE AND SCREEN Routine 07/09/2020 10:08 Primary Results for this AM CDT Osteoarthritis Hip procedure are in Right the results section. CREATININE WITH EGFR, Routine 07/09/2020 10:08 Primary Re sults for this S/P AM CDT Osteoarthritis Hip procedure are in Right the results section. documented in this encounter Results Antibody Identification, Erythrocytes (07/09/2020 10:08 AM CDT) Patholo gist Method Time Signature Antibody No antibody 07/09/2020 DTL Identification detected 2:39 PM CDT Specimen Anatomical Collection Method Collection Time Receive d Time (Source) Location / / Volume Laterality Varies 07/09/2020 10:08 07/09/2020 AM CDT 10:39 AM CDT Narrative [facility] - 07/09/2020 2:39 PM CDT Specimen Information: Specimen ID: [id number] Specimen Type: Varies Specimen Collection Start Date: 07/10/19 10:08 AM Specimen Received Date: 07/09/2020 10:39 AM Specimen ID: [id number] Specimen Type: Varies Specimen Collection Start Date: 07/10/19 10:08 AM Specimen Received Date: 07/09/2020 10:39 AM Sneha Moreno P.A.-C., M.S. LAB BLOOD BANK TEST ORDER DIANA Performing Organization Address City/State/ZIP Code Phon e Number [facility] - [address] [place] [address] [place] [address] [facility] [address] NT-Pro B-Type Natriuretic Peptide (BNP) (07/09/2020 10:08 AM CDT) P athologist Signature NT-Pro BNP 144 <=196 pg/mL 07/09/2020 DTL 11:25 AM CDT Comment: NT-proBNP values less than 300 pg/mL hav e a 99% negative predictive value for excluding acute congestive heart sumeet lure. A cutoff of 1200 pg/mL for patients with an eGFR<60 yields a diagno stic sensitivity and specificity of 89% and 72% for acute congestive heart f ailure. ??A diagnostic NT-proBNP cutoff of 900 pg/mL has been suggested i n adults 50-75 years of age in the absence of renal failure. Specimen Anatomical Collection Method Collection Time Receive d Time (Source) Location / / Volume Laterality Blood (Blood, 07/09/2020 10:08 07/09/2020 Venous) AM CDT 10:38 AM CDT Lan Fenton, BAdolph., B.A.O. LAB BLOOD ADD-O N Performing Organization Address City/[facility] Phon e Number [facility] - 200 [place], [place] [address] [facility] [address] [facility] 200 [facility] Type and Screen (with reflex Antibody ID) (07/09/2020 10:08 AM CDT) Patholo gist Method Time Signature ABORh AB Pos Not 07/09/2020 ETRM applicable 12:30 PM CDT Antibody Positive Negative 07/09/2020 ETRM Screen 12:49 PM CDT Type & Screen 07/12/2020 07/09/2020 ETRM Expiration 23:59 12:30 PM CDT Testing [place] DEFAULT 07/09/2020 ETRM Location 10:39 AM CDT Specimen Anatomical Collection Method Collection Time Receive d Time (Source) Location / / Volume Laterality Blood (Blood, 07/09/2020 10:08 07/09/2020 Venous) AM CDT 10:39 AM CDT Sneha Moreno P.A.-C., M.S. LAB BLOOD BANK TEST ORDER DIANA Performing Organization Address [facility] Phon e Number [facility] - [address] [place] [phone] [facility] [place] [address] [facility] 200 [facility] CBC without Differential (07/09/2020 10:08 AM CDT) P athologist Signature Hemoglobin 12.7 11.6 - 07/09/2020 DTL 15.0 g/dL 10:51 AM CDT Hematocrit 41.4 35.5 - 07/09/2020 DTL 44.9 % 10:51 AM CDT Erythrocytes 4.58 3.92 - 07/09/2020 DTL 5.13 10:51 AM CDT x10(12)/L MCV 90.4 78.2 - 07/09/2020 DTL 97.9 fL 10:51 AM CDT RBC Distrib Width 14.4 12.2 - 07/09/2020 DTL 16.1 % 10:51 AM CDT Platelet Count 307 157 - 371 07/09/2020 DTL x10(9)/L 10:51 AM CDT Leukocytes 8.5 3.4 - 9.6 07/09/2020 DTL x10(9)/L 10:51 AM CDT Specimen Anatomical Collection Method Collection Time Receive d Time (Source) Location / / Volume Laterality Blood (Blood, 07/09/2020 10:08 07/09/2020 Venous) AM CDT 10:42 AM CDT Sneha Moreno P.A.-C., M.S. LAB BLOOD ADD-ON Performing Organization Address City/[facility] Code Phon e Number [facility] [address] [phone] [facility] [address] Laboratories-[address] (ABNORMAL) Creatinine with Estimated GFR (07/09/2020 10:08 AM CDT) Analysis Performed At Patho logist Time Signature Creatinine 1.19 (H) 0.59 - 07/09/2020 DTL 1.04 mg/dL 11:25 AM CDT eGFR-Non 47 (L) >=60 07/09/2020 DTL Black/ mL/min/BSA 11:25 AM CDT Bhutanese Comment: ----ADDITIONAL INFORMATION---- Estimated GFR calculated using the 2009 CKD_EPI creatinine equation. eGFR-Black/ 55 (L) >=60 mL/min/BSA 2020 11:25 AM CDT DTL Comment: ----ADDITIONAL INFORMATION---- Estimated GFR calculated using the 2009 CKD_EPI creatinine equation. Specimen Anatomical Collection Method Collection Time Receive d Time (Source) Location / / Volume Laterality Blood (Blood, 07/09/2020 10:08 07/09/2020 Venous) AM CDT 10:38 AM CDT Sneha Moreno P.A.-C., M.S. LAB BLOOD ADD-ON Performing Organization Address City/State/[facility] Phon e Number [facility] - [address] [place], [place] [address] [facility] [address] Laboratories[facility] [address] documented in this encounter Visit Diagnoses Diagnosis Primary Osteoarthritis Hip Right Preoperative Exam documented in this encounter Additional Health Concerns Infection Onset Date Last Indicated Resolved Time COVID19 Pending 07/09/2020 07/09/2020 07/09/2020 5:59 PM CDT documented as of this encounter
--- OUTSIDE RECORDS SUMMARY | 2022-02-13 12:13 | XMS_ITS | Encounter Summary ---
:1950 Author Organization [facility] Address [address] [place] [address] Care Team Providers Name Role Phone Unavailable Primary Care Provider Unavailable Encounter Details Date Type Department Care Team Description 06/18/2020 Hospital Encounter Department of Frank, Pain Tot al Knee Radiology, Brandon Singh M.D. Arthroplas [facility], [place] ([facility]) [place], [place] [address] [place] [address] Social History Tobacco Use Types Packs/Day Years [...] or relatives? How often do you attend jainism or sikh More than 4 time s per year 10/07/2020 services? 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 azelastine (ASTELIN) 137 Administer 1 spray 0 mcg/spray (0.1 %) nasal into each nostril 2 spray (two) times a day. Use in each nostril as directed cholecalciferol (VITAMIN Take 4,000 Units by 0 D3) 50 mcg (2,000 Unit) mouth every morning. tablet levothyroxine Take 125 mcg by mouth 0 (SYNTHROID, LEVOTHROID) daily. 125 mcg tablet mirtazapine (REMERON) 45 Take 45 mg by mouth 0 mg tablet at bedtime. oxybutynin (DITROPAN-XL) Take 10 mg by mouth 2 0 10 mg 24 hr tablet (two) times a day. rOPINIRole (REQUIP) 2 mg Take 2 mg by mouth at 0 07/17/2015 tablet bedtime. simvastatin (ZOCOR) 20 Take 1 tablet by 0 016 mg tablet mouth at bedtime. acetaminophen (TYLENOL) Take 2 tablets (1,000 60 tablet 1 0 12/09/2017 07/09/2020 500 mg tablet mg total) by mouth every 6 (six) hours. hgskuhi-eozssuzundmls-lh Take 1 tablet by 0 07/09/2020 ffeine (EXCEDRIN mouth every 6 (six) MIGRAINE) 250-250-65 mg hours as needed for per tablet pain. estrogens, conjugated, Insert 1 0 09/18/2013 (PREMARIN) 0.625 mg/gram Applicatorful into vaginal cream the vagina 2 (two) times a week. Per patient uses on Tuesdays and Fridays ferrous sulfate 325 mg Take 1 tablet by 0 016 07/09/2020 (65 mg iron) tablet mouth every morning. fluticasone (FLONASE Administer 2 sprays 0 201507/09/2020 ALLERGY RELIEF) 50 into affected mcg/actuation nasal nostril(s) every spray morning. omeprazole (PriLOSEC) 20 Take 1 capsule by 0 06/2807/09/2020 mg capsule mouth 2 (two) times a day. oxyCODONE (ROXICODONE) 5 Take 1 tablet (5 mg 25 tablet 0 07/09/2020 mg immediate release total) by mouth every tabletIndications: 4 (four) hours as Prolonged Acute needed for pain Pain/Traumatic Injury Indication: Prolonged Acute Pain/Traumatic Injury. rivaroxaban (XARELTO) 10 Take 1 tablet (10 mg 30 tablet 0 0 12/09/2017 07/09/2020 mg tablet total) by mouth daily with dinner. traMADol (ULTRAM) 50 mg Take 1 tablet (50 mg 40 tablet 0 07/09/2020 tabletIndications: total) by mouth every Prolonged Acute 6 (six) hours as Pain/Traumatic Injury needed for mild pain or score 1-3 of 10 Indications: Prolonged Acute Pain/Traumatic Injury. documented as of this encounter Plan of Treatment Not on filedocumented as of this encounter Procedures Procedure Name Priority Date/Time Associated Comments Diagnosis DX HIP TO ANKLE RAD - Routine 06/18/2020 8:22 Pain Total Knee Resul ts for this STANDING (most inpatients AM CDT Arthroplasty procedure a re in and all Initial (HCC) the results outpatients) section. documented in this encounter Results DX Hip to Ankle Standing (06/18/2020 8:22 AM CDT) Anatomical Region Laterality Modality Lower Extremity, Hip, Femur, Knee, TibFib, Ankle, N/A Digital Radiography Musculoskeletal RST LOS, Musculoskeletal ARZ LOS, Muskuloskeletal FLA LOS Specimen (Source) Anatomical Collection Method Collection Time Re ceived Time Location / / Volume Laterality 06/18/2020 8:29 AM CDT Impressions 06/18/2020 8:33 AM CDT Full-length views of both lower extremities obtained for orthopedic measurement purposes. Moderate hypertrophic degenerative arthr itis of the right hip with mild loss of the joint space superomedially. Left ELSY . Mild heterotopic ossification about the left hip. Mild degenerative change b oth sacroiliac joints and pubic symphysis. Postoperative changes of the lower lumbar spine. 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 No evidence of hardware loosening or failure. Tiny spur inferior dorsal right patella. Sclerosis at the distal right tibia is unchanged since . Narrative 06/18/2020 8:33 AM CDT EXAM: ??DX HIP TO ANKLE STANDING, DX HIP AND PELVIS RIGHT 2-3 VIEWS, DX KNEE RIGHT 4+ VIEWS Procedure Note Dior Crawford D.O. - 06/18/2020Form atting of this note might be different from the original. EXAM: DX HIP TO ANKLE STANDING, DX HIP A ND PELVIS RIGHT 2-3 VIEWS, DX KNEE RIGHT 4+ VIEWS IMPRESSION: Full-length views of both lower extremit ies obtained for orthopedic measurement purposes. Moderate hypertrophic degenerative arthr itis of the right hip with mild loss of the joint space superomedially. Left ELSY . Mild heterotopic ossification about the left hip. Mild degenerative change b oth sacroiliac joints and pubic symphysis. Postoperative changes of the lower lumbar spine. 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 No evidence of hardware loosening or failure. Tiny spur inferior dorsal right patella. Sclerosis at the distal right tibia is unchanged since . [facility] ANGIE PRIDE documented in this encounter Visit Diagnoses Diagnosis Pain Total Knee Arthroplasty Initial (HC C) documented in this encounter
--- OUTSIDE RECORDS SUMMARY | 2022-02-13 12:13 | XMS_ITS | Encounter Summary ---
:1950 Author Organization [facility] Address [address] [place] [address] Care Team Providers Name Role Phone Unavailable Primary Care Provider Unavailable Reason for Visit Reason Comments Patient Education Appointment Request (Routine) - Closed Specialty Diagnoses / Procedures Referred By Contact Refer red To Contact General Internal Medicine Referral ID Status Reason Start Date Expiration Date Visits Requ ested Visits Authorized [id number] Closed 06/24/2020 06/24/2021 1 1 Encounter Details Date Type Department Care Team Description 07/09/2020 Education Division of General Internal Mildred Santo R.NBrayan Medicine in [place], (Work ) [place] [address] [place] [phone] Social History Tobacco Use Types Packs/Day Years [...] or relatives? How often do you attend cheondoism or muslim More than 4 time s per year 10/07/2020 services? Do you belong to any clubs or organizations No 10/07/2020 such as cheondoism groups, unions, fraternal or athletic groups, or [...] place to sleep or slept in a retirement (including now)? Education Answer Date Recorded What is the highest level of school you have completed or 12 th grade 04/15/2019 the highest degree you have received? 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 - 07/09/2020 9:00 AM CDT SUBJECTIVE REASON FOR VISIT Mindi Caba seen today for preoperative education with the nurse. Referring provider Dr. Lan Mcghee. ASSESSMENT/PLAN Per provider, the patient was instructed on the following medication changes in preparation for surgery: starting today, hold vitamin C, calcium carbonate, vitamin D3, Mucinex, and zinc. Hold Levothyroxine the morning of surgery. Patient may hold or take Oxybutynin the morning of surgery. Patient advised to take all other medications as prescribed. Additional instructions for medication management after surgery: none. Patient has sleep apnea, but does not use a CPAP. She said she was never able to get used to it. documented in this encounter Plan of Treatment Not on filedocumented as of this encounter Visit Diagnoses Not on filedocumented in this encounter
--- OUTSIDE RECORDS SUMMARY | 2022-02-13 12:13 | XMS_ITS | Encounter Summary ---
:1950 Author Organization [facility] Address [address] [place] [address] Care Team Providers Name Role Phone Unavailable Primary Care Provider Unavailable Reason for Visit Reason Comments Pre-op Exam Outpatient (Routine) - Closed Specialty Diagnoses / Procedures Referred By Contact Refer red To Contact Internal Medicine / Diagnoses Primary [facility] M.S[facility] Medicine [address] [place] [phone] Referral ID Status Reason Start Date Expiration Date Visits Requ ested Visits Authorized [id number] Closed 06/19/2020 06/19/2021 1 1 Encounter Details Date Type Department Care Team Description 07/09/2020 Comprehensive Visit Division of Jennifer Moreno P.A.-C., M.S. [address] [place] [address] [phone] Preoperative Exam (Primary Dx); General Internal Lan Mcghee M.B., B.Ch., B.A.O. [address] [place] [address] [phone] Primary Osteoarthritis Hip Right Medicine in [place], [place] [address] [place] [address] [phone] Social History Tobacco Use Types Packs/Day Years [...] or relatives? How often do you attend pentecostal or gnosticism More than 4 time s per year 10/07/2020 services? 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 - 07/09/2020 8:00 AM CDT REFERRAL SOURCE Sneha Moreno P.A.-C.* SUBJECTIVE CHIEF COMPLAINT Preoperative medical evaluation HISTORY OF PRESENT ILLNESS Mrs. Caba is a 69-year-old woman referred for a preoperative medical evaluation prior to an elective right total hip arthroplasty by Dr. Brown, scheduled for July 11, 2020. Her presentation comes in the context a prior postoperative pulmonary embolism, mild intermittent asthma, gastroesophageal re flux disease, obstructive sleep apnea not on CPAP, and postoperative nausea and vomiting. The patient has had difficulty with osteoarthritis of the hips and knees. She has undergone arthroplasty of the bilateral knees and left hip in the past. She is now under consideration for a right total hip arthroplasty, scheduled for later this week. She has undergone multiple operations in the past, including left total knee arthroplasty (2017), left total hip arthroplasty (2015), right total knee arthroplasty (2012), lumbar fusion (2001) bunion repair, sinus surgery, hiatal hernia repair with lap band placement, cholecystectomy, carpal tunnel release, and Caesarean section. She denies any severe reactions to anesthesia. Prior airways have been uncomplicated. She was noted most recently to have a grade 2A airway in 2018. She has had nausea postoperatively and has multiple risk factors for postoperative nausea and vomiting. Her functional capacity is significantly impaired by joint pain. She estimates that she can walk approximately 1 block. She can do laundry but no heavy housework. She is unable to climb a flight of stairs without stopping. The Smallwood Activity Score Index was 9.95, estimating a functional capacity of 3.97 METs. She has no known cardiovascular disease, including ischemic heart disease, congestive heart failure,structural heart disease, or arrhythmia. She denies chest pain/pressure, palpitations, nausea, or diaphoresis with activity. She denies symptoms of heart failure including orthopnea, paroxysmal nocturnal dyspnea, or lower extremity swelling. An electrocardiogram was done last in 2017 and was normal. She had a normal exercise echocardiogram stress test in 2010. She has a history of mild, intermittent asthma which is well controlled with intermittent albuterol use. She has never been hospitalized or in the emergency department for respiratory symptoms. Pulmonary function studies done in 2008 demonstrated no evidence of obstructive or restrictive pulmonary disease. No bronchodilator response. A DLCO was 81%. She has known obstructive sleep apnea but has been intolerant to CPAP. She has gained additional weight since her original LEIGH diagnosis (diagnosed in 2001, her weight has increased from 106- 119.4 kg between 2015 in 2020). She has symptoms of restless leg syndrome managed with pramipexole. In 2015, the patient was diagnosed with a pulmonary embolism shortly after undergoing a left total hip arthroplasty. The left ELSY was complicated by a posterior dislocation about 1 week after surgery. This was reduced and the patient was placed in a knee immobilizer and bedrest. About 2 weeks later, she developed acute dyspnea and pleuritic chest pain and was diagnosed with a pulmonary embolism. She received enoxaparin while in the hospital and for 1 week postoperatively. It appears as though she was intended to have received aspirin 325 mg twice daily after the 1st week, though this was apparentlynot given (i.e. The pulmonary embolism occurred in the setting of knee immobilization and bedrest while not receiving pharmacological VTE prophylaxis). Bilateral lower extremity ultrasound were apparently obtained and did not show evidence of a lower extremity DVT. She did not have a central line or pacemaker at the time. She was anticoagulated with warfarin for 1 year. She underwent a left total knee arthroplasty in 2018 and was placed on rivaroxaban for 1 month postoperatively. A sister has a history of blood clot and has been found to be a carrier of factor 5 Leiden. The patient recalls no difficulties with bleeding or bruising. She has a history of constipation managed with upmo-qkv-nhgnbzx laxatives. No history of liver disease or chronic kidney impairment. She has urinary urgency controlled with oxybutynin. She has no history of stroke, TIA or seizure disorder. The following portions of the patient's history were reviewed and updated as appropriate: allergies,current medications, family history, medical history, social history, surgical history and problem list. REVIEW OF SYSTEMS A complete review of systems was performed and pertinent items are noted in HPI, and remaining systems are negative PHYSICAL EXAMINATION General: Healthy well-appearing, in no acute distress. Elevated BMI. ENT: Mallampati 4. Oral mucosa without lesions. Lymph: No significant cervical or supraclavicular lymphadenopathy. Heart: Regular rate and rhythm. There may be a very slight systolic murmur over the aortic area without radiation. Lungs: Clear to auscultation bilaterally. Abdomen: Soft, nontender, nondistended. No pain with palpation. Normal bowel sounds. No hepatosplenomegaly noted. Extremities: No clubbing, cyanosis, or edema. Psych: Oriented, answering questions appropriately. Normal affect. ASSESSMENT / PLAN Reviewed her laboratory studies done today 1. CBC: Normal 2. Creatinine 1.19, up from 0.89 in 2018 3. NT-proBNP 144 # Preoperative medical evaluation # Left hip osteoarthritis # History of postoperative deep vein thrombus, 2016 # Obesity, BMI 43.96 kg/m2 # Obstructive sleep apnea, not on CPAP # Asthma, mild intermittent # History of gastric lap band, currently deflated # Restless leg syndrome # Urinary urgency RCRI Score: 0 (Class I) or 0.4% risk of major cardiac event. Abdi Score: 0.6% risk for myocardial infarction or cardiac arrest. Functional capacty: unable to to perform at least 4 METs ASA Classification: III STOP-BANG Score: Known LEIGH IMPRESSION: Mrs. Caba is a 69-year-old woman referred for a preoperative medical evaluation prior to an elective right total hip arthroplasty by Dr. Brown, scheduled for July 11, 2020. Her presentation comes in the context a prior postoperative pulmonary embolism, mild intermittent asthma, gastroesophageal re flux disease, obstructive sleep apnea not on CPAP, and postoperative nausea and vomiting. Overall, I believe the patient is medically optimized for her scheduled operation. She will be at average operative risk with the exception of the followin. Venous thromboembolism: Given her prior history of pulmonary embolism following major orthopedic surgery. I recommend pharmacological VTE prophylaxis be given for 30 day postoperatively. Typically, low-molecular weight heparin, apixaban, or rivaroxaban could be considered. Given her prior history of gastric banding, I am somewhat reluctant in recommending a direct oral anticoagulant especially rivaroxaban (given its primary absorption in the stomach). 2. Postoperative nausea and vomiting: Given her elevated Apfel score and history of PONV. She will discuss this with anesthesia on the morning of surgery. 3. Postoperative constipation: In the setting of her baseline constipation, upcoming major surgery, and likely opioid pain requirements. 4. Obesity related complications: Including pneumonia, respiratory failure, postoperative wound infections. 5. 5. Respiratory complications: Given her history of untreated obstructive sleep apnea. Please place her on respiratory specific assessments in the PACU, elevate the head of her bed, and continuous oxygen monitoring for 24 hours after surgery. Her objective cardiac risk is estimated to be low. I checked a NT-proBNP with her preoperative labs which was below 300, suggesting a very low risk of postoperative myocardial infarction or injury. Recommendations: 1. Optimized for her scheduled procedure. 2. Elevated risk of postoperative VTE. Recommend pharmacological VTE prophylaxis for at least 30 days after surgery. Enoxaparin would be preferred. 3. Elevated risk of PONV. She will discuss this with Anesthesia the morning of surgery. 4. Elevated risk of constipation. Recommend aggressive bowel regimen postoperatively. 5. Elevated respiratory risk. Recommend head of bed elevation, continuous O2 monitoring for 24 hoursafter surgery and respiratory specific assessments in the PACU Medication recommendations: 1. I have asked her to stop all sjwn-hap-tqriqry medications, including vitamin- C, calcium, vitamin-D, guaifenesin, and zinc. This can be continued postoperatively. 2. She can take her prescription medications she typically takes in the evening, the day before surgery. This includes melatonin, mirtazapine, ropinirole, and simvastatin. 3. She should hold Pepcid and levothyroxine the morning of surgery. She can take oxybutynin. PATIENT EDUCATION Ready to learn, no apparent learning barriers were identified; learning preferences include listening. Explained diagnosis and treatment plan; patient expressed understanding of the content. Total visit time greater than 60 minutes, with over 50% spent counseling with the patient and coordination of care activities described above. Answers for HPI/ROS submitted by the patient on 06/17/2020 No general issues: Yes No eye issues: Yes No ENT issues: Yes No heart issues: Yes No respiratory issues: Yes No GI issues: Yes Pain or stiffness in the joints: Yes Back pain/stiffness: Yes No skin issues: Yes No neurologic issues: Yes No mental health issues: Yes No blood/lymph issues: Yes No urinary/reproductive issues: Yes documented in this encounter Plan of Treatment Not on filedocumented as of this encounter Results NT-Pro B-Type Natriuretic Peptide (BNP) (07/09/2020 10:08 [...] AM CDT 10:38 AM CDT Lan Fenton, B.Demarco., B.A.O. LAB BLOOD ADD-O N Performing Organization Address City/State/[facility] Code Phon e Number [facility] - [address] [place], [place] [address] [facility] [place] [address] Laboratories-[facility] [address] documented in this encounter Visit Diagnoses Diagnosis Preoperative Exam - Primary Primary Osteoarthritis Hip Right documented in this encounter
--- OUTSIDE RECORDS SUMMARY | 2022-02-13 12:13 | XMS_ITS | Encounter Summary ---
:1950 Author Organization [facility] Address [address] [place] [address] Care Team Providers Name Role Phone Unavailable Primary Care Provider Unavailable Encounter Details Date Type Department Care Team Description 07/10/2020 Documentation Department of Orthopedic Suhas Brown M.D. Surgery in [place], [facility] [address] [place], [place] [address] [facility] [id number] [place] [phone] Social History Tobacco Use Types Packs/Day Years [...] or relatives? How often do you attend tenriism or mosque More than 4 time s per year 10/07/2020 services? 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 - 07/10/2020 9:14 AM CDT Mindi Caba was assessed per the Orthopedic Bone Donation Program Protocol. Patient meets inclusion criteria. Patient has no exclusion criteria. LAB SECTION: Initial Tests (Completed as an outpatient after clinic or the morning after surgery with routine post-operative labs.) * Bone Donor Screen Test Set [65407] HIV-1/-2 Ab Screen Donor, HBsAg Screen Donor, HBc Total Ab Donor, HCV Ab Screen Donor, HTLV-I/-II Ab Screen Donor, Syphilis Ab Screen Donor, PARTHA MPX Individual Donor Screen, and West Nile Virus PARTHA Donor. documented in this encounter Plan of Treatment Not on filedocumented as of this encounter Visit Diagnoses Not on filedocumented in this encounter
--- OUTSIDE RECORDS SUMMARY | 2022-02-13 12:13 | XMS_ITS | Encounter Summary ---
:1950 Author Organization [facility] Address [address] [place] [address] Care Team Providers Name Role Phone Unavailable Primary Care Provider Unavailable Reason for Visit Reason Comments Pre-visit Testing Orders Encounter Details Date Type Department Care Team Description 06/17/2020 Clinical Communication Department of Suhas Brown Pre- visit Testing Orthopedic Surgery Guilherme Baker Orders in [address] [place] [phone] [place], [place] [phone] (Work) [phone] Social History Tobacco Use Types Packs/Day Years [...] or relatives? How often do you attend hoahaoism or anglican More than 4 time s per year 10/07/2020 services? Do you belong to any clubs or organizations No 10/07/2020 such as hoahaoism groups, unions, fraternal or athletic groups, or [...] place to sleep or slept in a fdc (including now)? Education Answer Date Recorded What is the highest level of school you have completed or 12 th grade 04/15/2019 the highest degree you have received? 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 Drew Marie M.D. IMG DIAGNOSTIC IMAGING PROCE BIGG DX Hip And Pelvis Right 2-3 Views (06/18/2020 8:23 AM CDT) Anatomical Region Laterality Modality Lower [...] right tibia is unchanged since . Drew Marie M.D. IMG DIAGNOSTIC IMAGING PROCE SAULCANDIDA DX Hip to Ankle Standing (06/18/2020 8:22 [...] right tibia is unchanged since . Drew Marie M.D. IMG DIAGNOSTIC IMAGING PROCE BIGG CBC with Differential, Blood (06/18/2020 7:02 AM CDT) P athologist Signature Hemoglobin 13.4 11.6 - 06/18/2020 DTL 15.0 g/dL 7:42 AM CDT Hematocrit 43.0 35.5 - 06/18/2020 DTL 44.9 % 7:42 AM CDT Erythrocytes 4.73 3.92 - 06/18/2020 DTL 5.13 7:42 AM CDT x10(12)/L MCV 90.9 78.2 - 06/18/2020 DTL 97.9 fL 7:42 AM CDT RBC Distrib Width 14.2 12.2 - 06/18/2020 DTL 16.1 % 7:42 AM CDT Platelet Count 300 157 - 371 06/18/2020 DTL x10(9)/L 7:42 AM CDT Leukocytes 8.1 3.4 - 9.6 06/18/2020 DTL x10(9)/L 7:42 AM CDT Neutrophils 5.16 1.56 - 06/18/2020 DTL 6.45 7:42 AM CDT x10(9)/L Lymphocytes 1.78 0.95 - 06/18/2020 DTL 3.07 7:42 AM CDT x10(9)/L Monocytes 0.76 0.26 - 06/18/2020 DTL 0.81 7:42 AM CDT x10(9)/L Eosinophils 0.33 0.03 - 06/18/2020 DTL 0.48 7:42 AM CDT x10(9)/L Basophils 0.04 0.01 - 06/18/2020 DTL 0.08 7:42 AM CDT x10(9)/L Specimen Anatomical Collection Method Collection Time Receive d Time (Source) Location / / Volume Laterality Blood (Blood, 06/18/2020 7:02 AM 06/19/19 7:33 Venous) CDT AM CDT Sneha Moreno P.A.-C., M.S. LAB BLOOD ADD-ON Performing Organization Address City/State/ZIP Code Phon e Number [facility] - [address] [place], [place] [address] [place] [address] Laboratories-[facility] [address] (ABNORMAL) CRP (C-Reactive Protein) (06/18/2020 7:02 AM CDT) P athologist Signature C-Reactive 9.2 (H) <=8.0 mg/L 06/18/2020 DTL Protein (CRP), 8:02 AM CDT S Specimen Anatomical Collection Method Collection Time Receive d Time (Source) Location / / Volume Laterality Blood (Blood, 06/18/2020 7:02 AM 06/19/19 7:30 Venous) CDT AM CDT Sneha Moreno P.A.-C., M.S. LAB BLOOD ADD-ON Performing Organization Address City/[facility] Phon e Number [facility] - [address] [place] [address] Laboratories-[address] (ABNORMAL) Sedimentation Rate (06/18/2020 7:02 AM CDT) Patholo gist Method Time Signature Sedimentation 35 (H) 2 - 22 06/18/2020 DTL Rate, B mm/h 8:23 AM CDT Specimen Anatomical Collection Method Collection Time Receive d Time (Source) Location / / Volume Laterality Blood (Blood, 06/18/2020 7:02 AM 06/19/19 7:33 Venous) CDT AM CDT Sneha Moreno P.A.-C., M.S. LAB BLOOD ADD-ON Performing Organization Address City/[facility] Phon e Number [facility] - [address] documented in this encounter Visit Diagnoses Diagnosis Pain Total Knee Arthroplasty Initial (HC C) - Primary Pain Hip Right Pain Hip Right Pain Total Knee Arthroplasty Initial (HC C) Pain Total Knee Arthroplasty Initial (HC C) documented in this encounter
--- OUTSIDE RECORDS SUMMARY | 2022-02-13 12:13 | XMS_ITS | Encounter Summary ---
:1950 Author Organization [facility] Address [address] [place] [address] Care Team Providers Name Role Phone Unavailable Primary Care Provider Unavailable Reason for Visit Outpatient (Routine) - Closed Specialty Diagnoses / Procedures Referred By Contact Refer red To Contact Orthopedic Surgery Sneha Moreno, [facility] brown Fuentes M.S. [address] [place] [address] Referral ID Status Reason Start Date Expiration Date Visits Requ ested Visits Authorized [id number] Closed 06/19/2020 06/19/2021 1 1 Encounter Details Date Type Department Care Team Description 07/10/2020 Office Visit Department of Suhas Brown I., Primary Os teoarthritis Orthopedic Surgery in M.D. Hip Right (Primary Dx) [place], [place] [address] [facility] [[email or web address] [address] [place] [phone] Social History Tobacco Use Types Packs/Day Years [...] or relatives? How often do you attend caodaism or sabianism More than 4 time s per year 10/07/2020 services? 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 - 07/10/2020 8:45 AM CDT HISTORY OF PRESENT ILLNESS Patient returns today in anticipation of a right total hip arthroplasty.We will ensure the patient has been cleared for surgery. IMPRESSION/REPORT/PLAN Surgery was discussed in great detail today. All questions were answered, and informed consent was obtained. We will plan to proceed. INFORMED CONSENT We discussed the goals and potential benefits of surgery. We discussed alternatives to the proposed surgery and potential risks of surgery. The patient understands that the risks include but are not limited to medical problems, infection, bleeding, nerve damage, blood clot problems, prosthetic loosening, wear or failure of the implants, stiffness, skin healing problems, ligament or tendon problems, instability problems, or ongoing pain. Discussed the risks, benefits, and alternatives of the procedure and of possible blood transfusion. Discussed advance directives and the necessity of other members of the healthcare team participating in the procedure. All questions answered and consent given. We reviewed the fact that the patient's surgery may involve the use of a medical services coordinator made by a company with which I or one of my partners have collaborated to design, develop, or improve orthopedic implants, instruments, or products. Both the [facility] and the individual surgeons involved receiveroyalty payments from the use of those specific devices at other institutions, but no royalties or any other payments are paid for the use of those devices with any [facility] patient. The clinical rationale for the use of those devices as well as the availability and applicability of alternative devices was reviewed. The patient understands that the final decision for the use of a specific medical services coordinator often is made at the time of surgery. All of the patient's questions were answered; the patient understands and agrees with my approach to device selection and wants to proceed. DIAGNOSES #1 Right hip end-stage arthritis documented in this encounter Plan of Treatment Not on filedocumented as of this encounter Visit Diagnoses Diagnosis Primary Osteoarthritis Hip Right - Prima ry documented in this encounter
--- OUTSIDE RECORDS SUMMARY | 2022-02-13 12:13 | XMS_ITS | Encounter Summary ---
:1950 Author Organization [facility] Address [address] [place] [address] Care Team Providers Name Role Phone Unavailable Primary Care Provider Unavailable Encounter Details Date Type Department Care Team Description 04/17/2019 Hospital Encounter Department of Reed Treviño Art hroplasty Total Laboratory Medicine Guilherme Ceja Knee Rep lacement and Pathology, Status Post L [facility], in [place], [place] [address] [place] [address] Social History Tobacco Use Types Packs/Day Years [...] or relatives? How often do you attend shinto or latter-day More than 4 time s per year 10/07/2020 services? 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 [id number] Take 1 tablet by 0 07/09/2020 ffeine [...] Name Priority Date/Time Associated Diagnosis Comme nts SEDIMENTATION RATE, B Routine 04/17/2019 7:21 Arthroplasty Tot al Results for this AM GUIDE SETTER Knee Replacement procedure a re in Status Post Left the results section. C-REACTIVE PROTEIN Routine 04/17/2019 7:21 Arthroplasty Total Results for this (CRP), S/P AM GUIDE SETTER Knee Replacement procedure a re in Status Post Left the results section. documented in this encounter Results (ABNORMAL) Sedimentation Rate (04/17/2019 7:21 AM GUIDE SETTER) Patholo gist Method Time Signature Sedimentation 27 (H) 2 - 22 04/17/2019 DTL Rate, B mm/h 8:53 AM GUIDE SETTER Specimen Anatomical Collection Method Collection Time Receive d Time (Source) Location / / Volume Laterality Blood (Blood, 04/17/2019 7:21 AM 04/17/19 7:41 Venous) GUIDE SETTER AM GUIDE SETTER Reed Treviño M.D. LAB BLOOD ADD-ON Performing Organization Address City/State/ZIP Code Phon e Number [facility] - [address] [place], [place] [address] [facility] [place] [address] Laboratories-[facility] [address] CRP (C-Reactive Protein) (04/17/2019 7:21 AM GUIDE SETTER) P athologist Signature C-Reactive 7.0 <=8.0 mg/L 04/17/2019 DTL Protein (CRP), 8:39 AM GUIDE SETTER S Specimen Anatomical Collection Method Collection Time Receive d Time (Source) Location / / Volume Laterality Blood (Blood, 04/17/2019 7:21 AM 04/17/19 7:41 Venous) GUIDE SETTER AM GUIDE SETTER Reed Treviño M.D. LAB BLOOD ADD-ON Performing Organization Address City/State/ZIP Code Phon e Number [facility] - [address] [place], [place] [address] [facility] [place] [address] Laboratories-[facility] [address] documented in this encounter Visit Diagnoses Diagnosis Arthroplasty Total Knee Replacement Stat us Post Left documented in this encounter
--- OUTSIDE RECORDS SUMMARY | 2022-02-13 12:13 | XMS_ITS | Encounter Summary ---
:1950 Author Organization [facility] Address [address] [place] [address] Care Team Providers Name Role Phone Unavailable Primary Care Provider Unavailable Reason for Visit Appointment Request (Routine) - Closed Specialty Diagnoses / Procedures Referred By Contact Refer red To Contact Orthopedic Surgery Diagnoses Pain Hip Right Pain Knee Right Referral ID Status Reason Start Date Expiration Date Visits Requ ested Visits Authorized [id number] Closed 06/17/2020 06/17/2021 1 1 Encounter Details Date Type Department Care Team Description 06/18/2020 Office Visit Department of Shuas Brown I., Primary Os teoarthritis Orthopedic Surgery in M.D. Hip Right (Primary Dx) [place], [place] [address] [place] [address] [address] [place] [address] [phone] Social History Tobacco Use Types Packs/Day Years [...] or relatives? How often do you attend baptist or mormon More than 4 time s per year 10/07/2020 services? Do you belong to any clubs or organizations No 10/07/2020 such as baptist groups, unions, fraternal or athletic groups, or [...] place to sleep or slept in a skilled nursing (including now)? Education Answer Date Recorded What is the highest level of school you have completed or 12 th grade 04/15/2019 the highest degree you have received? 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 - 06/18/2020 8:45 AM CDT HISTORY OF PRESENT ILLNESS Patient returns today 2 and half years out from left total knee with me. She has also had her left hip and her right knee done by Dr. Ni. Those all appear to be doing well. She is here today as she ishaving a lot of right hip pain. It is mostly through the groin mostly with ambulation. She tells me it feels a lot like her left hip did prior to her total hip replacement. PHYSICAL EXAMINATION Musculoskeletal: Left knee has great range of motion from 0 to 125 degrees. No evidence of varus, valgus, or AP instability. She has a positive Stinchfield on the right and pain with log roll hip. She also has painful limited internal rotation about 20??. Gait: Ambulates without a limp. Knee sheet filled out. IMPRESSION/REPORT/PLAN IMAGING STUDIES X-rays of the left TKA look great. No evidence of loosening or wear. Alignment is satisfactory. She has end-stage arthritic change to the right hip that is progressed since her imaging in 2017. IMPRESSION 1. Satisfactory recheck status post left and right total knee arthroplasty 2. Satisfactory check status post left total hip replacement Dr. Ni 3. Right hip end-stage arthritis I am very pleased with the patient's progress from the standpoint of her knees in his left hip. Fromthe standpoint of her right hip, she clearly has end-stage arthritic change. She tells me she is notquite ready to commit to hip replacement on that side. She would like to think about things further.We will give her call in another 6 or 8 weeks to see how things are progressing. Certainly, when hersymptoms worsen we could consider hip replacement on the right side. Otherwise, I would like to see the patient back according to our total joint registry follow up. We had a good discussion regarding ongoing care, activity recommendations, and follow-up. All questions were answered. documented in this encounter Plan of Treatment Not on filedocumented as of this encounter Visit Diagnoses Diagnosis Primary Osteoarthritis Hip Right - Prima ry documented in this encounter
--- OUTSIDE RECORDS SUMMARY | 2022-02-13 12:13 | XMS_ITS | Encounter Summary ---
:1950 Author Organization [facility] Address [address] [place] [address] Care Team Providers Name Role Phone Unavailable Primary Care Provider Unavailable Reason for Visit Reason Comments Discharge Planning Encounter Details Date Type Department Care Team Description 06/26/2020 Clinical Communication Department of Brandt Joseph Di scharge Planning Orthopedic Surgery R.N. in [place] [address] [address] [place], [place] [address] [place] [address] [place], [place] [phone] [address] (Work) [phone] Social History Tobacco Use Types Packs/Day Years [...] or relatives? How often do you attend confucianism or anglican More than 4 time s per year 10/07/2020 services? Do you belong to any clubs or organizations No 10/07/2020 such as confucianism groups, unions, fraternal or athletic groups, or [...] place to sleep or slept in a long term (including now)? Education Answer Date Recorded What is the highest level of school you have completed or 12 th grade 04/15/2019 the highest degree you have received? 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 - 06/26/2020 2:04 PM CDT Phone call concerning dismissal plans after Mindi Caba's scheduled 07/11/2020 Right Total Hip Arthroplasty with Dr. Brown. Spoke with the patient. The patient plans on returning home. The role of caregiver and rolloff truck driver will be filled by the patient's , Nnamdi. The primary caregiver is retired. The home is one level, with one step(s) up into it. The patient has a walker and crutches; and plans on bringing them with to the hospital. The patient does not use a CPAP machine. The patient verbalized they did not take any anticoagulant, antiplatelet, or anti-rheumatic medication. She will hold Aleve. No further instructions provided. Questions answered. The following information was provided: post-op need for caregiver and ambulatory device. The phone call recipient was able to teach back; they addressed and discussed concerns. The following references were used: nursing clinical judgement. documented in this encounter Plan of Treatment Not on filedocumented as of this encounter Visit Diagnoses Not on filedocumented in this encounter
--- OUTSIDE RECORDS SUMMARY | 2022-02-13 12:13 | XMS_ITS | Encounter Summary ---
:1950 Author Organization [facility] Address [address] [place] [address] Care Team Providers Name Role Phone Unavailable Primary Care Provider Unavailable Encounter Details Date Type Department Care Team Description 06/18/2020 Hospital Encounter Department of Sneha Moreno Pain To casi Knee Laboratory Medicine Gina Ceja, Arthropl willie Hernandez and Pathology, M.S. ([facility]) [facility] in [address] [place] [address] [place], [place] [phone] (Work) [phone] Social History Tobacco Use Types Packs/Day Years [...] or relatives? How often do you attend scientology or sabianism More than 4 time s per year 10/07/2020 services? 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 [id number]-pdsomefriymxs-kf Take 1 tablet by 0 07/09/2020 ffeine (EXCEDRIN mouth every 6 (six) MIGRAINE) 250-250-65 mg hours as needed for per tablet pain. estrogens, conjugated, Insert 1 0 09/18/2013 (PREMARIN) 0.625 mg/gram Applicatorful into vaginal cream the vagina 2 (two) times a week. Per patient uses on Tuesdays and Fridays ferrous sulfate 325 mg Take 1 tablet by 0 07/16/2 016 07/09/2020 (65 mg iron) tablet mouth [...] Diagnosis Comme nts SEDIMENTATION RATE, B Routine 06/18/2020 7:02 Pain Total Knee Results for this AM CDT Arthroplasty Initial procedu re are in ([facility]) the results section. CBC WITH DIFFERENTIAL, Routine 06/18/2020 7:02 Pain Total Knee Results for this B AM CDT Arthroplasty Initial procedu re are in ([facility]) the results section. C-REACTIVE PROTEIN Routine 06/18/2020 7:02 Pain Total Knee Res ults for this (CRP), S/P AM CDT Arthroplasty Initial procedu re are in (HCC) the results section. documented in this encounter Results CBC with Differential, Blood (06/18/2020 7:02 AM [...] Laterality Blood (Blood, 06/18/2020 7:02 AM 06/19/19 21 7:33 Venous) CDT AM CDT Sneha Moreno P.A.-C., M.S. LAB BLOOD ADD-ON Performing Organization Address City/State/ZIP Code Phon e Number [facility] - [address] [place], [place] [address] [facility] [address] Laboratories-[facility] [address] (ABNORMAL) CRP (C-Reactive Protein) (06/18/2020 7:02 AM CDT) athologist Signature C-Reactive 9.2 (H) <=8.0 mg/L 06/18/2020 DTL Protein (CRP), 8:02 AM CDT S Specimen Anatomical Collection Method Collection Time Receive d Time (Source) Location / / Volume Laterality Blood (Blood, 06/18/2020 7:02 AM 06/19/19 7:30 Venous) CDT AM CDT Sneha Moreno P.A.-C., M.S. LAB BLOOD ADD-ON Performing Organization Address City/[facility] Code Phon e Number [facility] - [address] [place], [place] [address] [place] [address] [facility] [address] [facility] (ABNORMAL) Sedimentation Rate (06/18/2020 7:02 AM CDT) [facility] gist Method Time Signature Sedimentation 35 (H) 2 - 22 06/18/2020 DTL Rate, B mm/h 8:23 AM CDT Specimen Anatomical Collection Method Collection Time Receive d Time (Source) Location / / Volume Laterality Blood (Blood, 06/18/2020 7:02 AM 06/19/19 7:33 Venous) CDT AM CDT Sneha Moreno P.A.-C., M.S. LAB BLOOD ADD-ON Performing Organization Address City/State/[facility] Code Phon e Number [facility] - [address] [place], [place] [address] [place] [address] Laboratories-[address] documented in this encounter Visit Diagnoses Diagnosis Pain Total Knee Arthroplasty Initial ([facility]) documented in this encounter
--- OUTSIDE RECORDS SUMMARY | 2022-02-13 12:13 | XMS_ITS | Encounter Summary ---
:1950 Author Organization [facility] Address [address] [place] [address] Care Team Providers Name Role Phone Unavailable Primary Care Provider Unavailable Encounter Details Date Type Department Care Team Description 06/18/2020 Hospital Encounter Department of Frank, Pain Hip Right; Radiology, Brandon Singh M.D. Pain Total Knee Arthroplasty Initial ([facility]) [facility], in [place], [place] [address] [place] [address] Social History Tobacco Use Types Packs/Day Years [...] or relatives? How often do you attend sabianist or faith More than 4 time s per year 10/07/2020 services? 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 vuiqxob-tpavqbapmzksa-tj Take 1 tablet by 0 07/09/2020 ffeine [...] DX HIP AND PELVIS RAD - Routine 06/18/2020 8:23 Pain Hip Right Resu lts for this RIGHT 2-3 VIEWS (most inpatients AM CDT procedur e are in and all the results outpatients) section. DX KNEE RIGHT 4+ RAD - Routine 06/18/2020 8:23 Pain Total Knee Resu lts for this VIEWS (most inpatients AM CDT Arthroplasty procedure a re in and all Initial (HCC) the results outpatients) section. documented in this encounter Results DX Knee Right 4+ [...] encounter Visit Diagnoses Diagnosis Pain Hip Right Pain Total Knee Arthroplasty Initial ([facility] C) documented in this encounter
--- OUTSIDE RECORDS SUMMARY | 2022-02-13 12:14 | XMS_ITS | Encounter Summary ---
:1950 Author Organization [facility] Address [address] [place] [address] Care Team Providers Name Role Phone Unavailable Primary Care Provider Unavailable Reason for Visit Reason Onset Date Comments Med Refill 01/07/2018 Tramadol Encounter Details Date Type Department Care Team Description 01/07/2018 Clinical Communication Department of Suhas Brown Med Refill Orthopedic Surgery Guilherme Baker (Tramadol) in [address] [place] [address] [place], [place] [phone] (Work) [phone] Social History Tobacco Use Types Packs/Day Years [...] or relatives? How often do you attend uatsdin or mandaeism More than 4 time s per year 10/07/2020 services? Do you belong to any clubs or organizations No 10/07/2020 such as uatsdin groups, unions, fraternal or athletic groups, or [...] place to sleep or slept in a assisted (including now)? 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 - 01/10/2018 3:49 PM CDT Will send her tramadol and PT script Telephone Encounter - Sneha Moreno P.A.-C., M.S. - 01/10/2018 3:41 PM CDT Patient phone call. The patient was not seen or examined. The patient underwent a left total knee arthroplasty on December 09, 2017. The patient is overall doing well. Incision is healing without any evidence of drainage. Range of motion is 10 degrees of extension, over 90 degrees of flexion. All questions were answered. Discussed importance of activity allen fication and overall healing pattern. She needs to continue to work on her extension I discussed with her several different activities that she can do to help with this. I will also send her a prescription for outpatient physical therapy to show her some of these exercises and get official measurements. We will call her back in a couple of weeks to make sure she continues to progress. In addition to the that she is wondering if she could have an additional tramadol prescription to continue to work on therapy which would be reasonable. We will have these things mailed to her. We will plan on seeing the patient back at 3 months in the outpatient setting unless anything else comes up before then. Telephone Encounter - Nory Cunha - 01/10/2018 12:27 PM CDT Patient calls again today regarding her refill. Will call her when it has been sent. Telephone Encounter - Nory Cunha - 01/07/2018 2:56 PM CDT Patient had surgery 4 weeks ago. Asking for tramadol refill. [facility], [address] [place], [place]. Ph/fax same: documented in this encounter Plan of Treatment Not on filedocumented as of this encounter Visit Diagnoses Diagnosis Aftercare Total Knee Arthroplasty - Prim qasim documented in this encounter
--- OUTSIDE RECORDS SUMMARY | 2022-02-13 12:14 | XMS_ITS | Encounter Summary ---
:1950 Author Organization [facility] Address [address] [place] [address] Care Team Providers Name Role Phone Unavailable Primary Care Provider Unavailable Encounter Details Date Type Department Care Team Description 01/26/2018 Clinical Communication Department of Sneha Moreno, Orthopedic Surgery in [place].-., .[place]. [place], [place] [address] [facility] [address] [place] [address] [phone] Social History Tobacco Use Types Packs/Day Years [...] How often do you attend pentecostal or jehovah's witness More than 4 time s per year [...] place to sleep or slept in a penitentiary (including now)? 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
--- OUTSIDE RECORDS SUMMARY | 2022-02-13 12:14 | XMS_ITS | Encounter Summary ---
:1950 Author Organization [facility] Address [address] [place] [address] Care Team Providers Name Role Phone Unavailable Primary Care Provider Unavailable Reason for Visit Reason Onset Date Comments Pre-visit Testing Orders 03/31/2019 Encounter Details Date Type Department Care Team Description 03/31/2019 Clinical Communication Department of Suhas Brown Pre- visit Testing Orthopedic Surgery Guilherme Baker Orders in [address] [place] [address] [place], [place] [phone] (Work) [phone] Social History Tobacco Use Types Packs/Day Years [...] or relatives? How often do you attend baptism or oriental orthodox More than 4 time s per year 10/07/2020 services? Do you belong to any clubs or organizations No 10/07/2020 such as baptism groups, unions, fraternal or athletic groups, or [...] place to sleep or slept in a long-term (including now)? 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 documented as of this encounter Miscellaneous Notes Telephone Encounter - Maia Fonseca - 03/31/2019 2:32 PM CST Sign orders ER SUPERVISOR documented in this encounter Plan of Treatment Not on filedocumented as of this encounter Results DX Knee Left Standing 3 Views (04/17/2019 8:09 AM PLATER SUPERVISOR) Anatomical Region Laterality Modality Lower Extremity, Knee, Musculoskeletal RST LOS, Left Digital Radiography Musculoskeletal ARZ LOS, Muskuloskeletal FLA LOS Specimen (Source) Anatomical Collection Method Collection Time Re ceived Time Location / / Volume Laterality 04/17/2019 8:37 AM PLATER SUPERVISOR Impressions 04/17/2019 8:39 AM PLATER SUPERVISOR Left TKA is well seated. Small effusion and/or synovitis left knee. Right TKA with patellar resurfacing. Ful l-length view of both lower extremities obtained for orthopedic measurement purp oses. Left ELSY. Incompletely visualized lumbosacral fusion. 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 Sclerosis distal right tibia unchanged since 07/23/2016. Narrative 04/17/2019 8:39 AM PLATER SUPERVISOR EXAM: ??DX HIP TO ANKLE STANDING, DX KNEE LEFT STANDING 3 VIEWS Procedure Note Lan Major M.D. - 04/17/2019Forma tting of this note might be different from the original. EXAM: DX HIP TO ANKLE STANDING, DX KNEE LEFT STANDING 3 VIEWS IMPRESSION: Left TKA is well seated. Small effusion and/or synovitis left knee. Right TKA with patellar resurfacing. Ful l-length view of both lower extremities obtained for orthopedic measurement purp oses. Left ELSY. Incompletely visualized lumbosacral fusion. 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 Sclerosis distal right tibia unchanged since 07/23/2016. Reed Treviño M.D. IMG DIAGNOSTIC IMAGING PROCE BIGG DX Hip to Ankle Standing (04/17/2019 8:08 AM PLATER SUPERVISOR) Anatomical Region Laterality Modality Lower Extremity, Hip, Femur, Knee, TibFib, Ankle, N/A Digital Radiography Musculoskeletal RST LOS, Musculoskeletal ARZ LOS, Muskuloskeletal FLA LOS Specimen (Source) Anatomical Collection Method Collection Time Re ceived Time Location / / Volume Laterality 04/17/2019 8:37 AM PLATER SUPERVISOR Impressions 04/17/2019 8:39 AM PLATER SUPERVISOR Left TKA is well seated. Small effusion and/or synovitis left knee. Right TKA with patellar resurfacing. Ful l-length view of both lower extremities obtained for orthopedic measurement purp oses. Left ELSY. Incompletely visualized lumbosacral fusion. 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 Sclerosis distal right tibia unchanged since 07/23/2016. Narrative 04/17/2019 8:39 AM PLATER SUPERVISOR EXAM: ??DX HIP TO ANKLE STANDING, DX KNEE LEFT STANDING 3 VIEWS Procedure Note Lan Major M.D. - 04/17/2019Forma tting of this note might be different from the original. EXAM: DX HIP TO ANKLE STANDING, DX KNEE LEFT STANDING 3 VIEWS IMPRESSION: Left TKA is well seated. Small effusion and/or synovitis left knee. Right TKA with patellar resurfacing. Ful l-length view of both lower extremities obtained for orthopedic measurement purp oses. Left ELSY. Incompletely visualized lumbosacral fusion. 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 Sclerosis distal right tibia unchanged since 07/23/2016. Rede Treviño M.D. IMG DIAGNOSTIC IMAGING PROCE DURES (ABNORMAL) Sedimentation Rate (04/17/2019 7:21 AM PLATER SUPERVISOR) Patholo gist Method Time Signature Sedimentation 27 (H) 2 - 22 04/17/2019 DTL Rate, B mm/h 8:53 AM PLATER SUPERVISOR Specimen Anatomical Collection Method Collection Time Receive d Time (Source) Location / / Volume Laterality Blood (Blood, 04/17/2019 7:21 AM 04/17/19 7:41 Venous) PLATER SUPERVISOR AM PLATER SUPERVISOR Reed Treviño M.D. LAB BLOOD ADD-ON Performing Organization Address City/State/ZIP Code Phon e Number [facility] - [address] [place], [place] [address] [facility] [place] [address] [facility], [place] [address] CRP (C-Reactive Protein) (04/17/2019 7:21 AM PLATER SUPERVISOR) P athologist Signature C-Reactive 7.0 <=8.0 mg/L 04/17/2019 DTL Protein (CRP), 8:39 AM PLATER SUPERVISOR S Specimen Anatomical Collection Method Collection Time Receive d Time (Source) Location / / Volume Laterality Blood (Blood, 04/17/2019 7:21 AM 04/17/19 7:41 Venous) PLATER SUPERVISOR AM PLATER SUPERVISOR Reed Treviño M.D. LAB BLOOD ADD-ON Performing Organization Address City/State/[facility] Code Phon e Number [facility] - [address] [place], [place] [address] [facility] [place] [address] [facility] [place] [address] documented in this encounter Visit Diagnoses Diagnosis Arthroplasty Total Knee Replacement Stat us Post Left - Primary Arthroplasty Total Knee Replacement Stat us Post Left Arthroplasty Total Knee Replacement Stat us Post Left documented in this encounter
--- OUTSIDE RECORDS SUMMARY | 2022-02-13 12:14 | XMS_ITS | Encounter Summary ---
:1950 Author Organization [facility] Address [address] [place] [address] Care Team Providers Name Role Phone Unavailable Primary Care Provider Unavailable Encounter Details Date Type Department Care Team Description 04/17/2019 Hospital Encounter Department of Reed Treviño hroplasty Total Radiology, Brandon Ceja M.D. [facility], in Status Post [place], [place] [address] [place] [address] Social History Tobacco Use Types Packs/Day Years [...] or relatives? How often do you attend druze or catholic More than 4 time s per year 10/07/2020 services? Do you belong to any clubs or organizations No 10/07/2020 such as druze groups, unions, fraternal or athletic groups, or [...] at Date Recorded Female 03/15/2018 11:32 AM FORM STRIPPER documented as of this encounter Medications at [...] total) by mouth every 6 (six) hours. rcfxdcl-gavxxgwnlruph-re Take 1 tablet by 0 07/09/2020 ffeine [...] DX HIP TO ANKLE RAD - Routine 04/17/2019 8:08 Arthroplasty Total Re sults for this STANDING (most inpatients AM FORM STRIPPER Knee Replacement procedu re are in and all Status Post Left the results outpatients) section. documented in this encounter Results DX Hip to Ankle Standing (04/17/2019 8:08 AM FORM STRIPPER) Anatomical Region Laterality Modality Lower Extremity, Hip, Femur, Knee, TibFib, Ankle, N/A Digital Radiography Musculoskeletal RST LOS, Musculoskeletal ARZ LOS, Muskuloskeletal FLA LOS Specimen (Source) Anatomical Collection Method Collection Time Re ceived Time Location / / Volume Laterality 04/17/2019 8:37 AM FORM STRIPPER Impressions 04/17/2019 8:39 AM FORM STRIPPER Left TKA is well seated. Small effusion and/or synovitis left knee. Right TKA with patellar resurfacing. Ful l-length view of both lower extremities obtained for orthopedic measurement purp oses. Left ELSY. Incompletely visualized lumbosacral fusion. 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 Sclerosis distal right tibia unchanged since 07/23/2016. Narrative 04/17/2019 8:39 AM FORM STRIPPER EXAM: ??DX HIP TO ANKLE STANDING, DX [...] distal right tibia unchanged since 07/23/2016. Reed HANNAH DIAGNOSTIC IMAGING PROCE BIGG documented in this encounter Visit Diagnoses Diagnosis Arthroplasty Total Knee Replacement Stat us Post Left documented in this encounter
--- OUTSIDE RECORDS SUMMARY | 2022-02-13 12:14 | XMS_ITS | Encounter Summary ---
:1950 Author Organization [facility] Address [address] [place] [address] Care Team Providers Name Role Phone Unavailable Primary Care Provider Unavailable Encounter Details Date Type Department Care Team Description 02/09/2018 Clinical Communication Department of Sneha Moreno, Orthopedic Surgery in P.[place].-., .[place]. [place], [place] [address] [facility] [address] [place] [phone] Social History Tobacco Use Types Packs/Day Years [...] How often do you attend evangelical or latter-day More than 4 time s [...] or slept in a fpc (including now)? Sex Assigned at Date Recorded Female 03/15/2018 11:32 AM FIRE OFFICIAL documented as of this encounter Miscellaneous Notes Telephone Encounter - Sneha Moreno P.A.-C., M.S. - 02/09/2018 3:30 PM FIRE OFFICIAL I spoke to the patient today, she has been struggling with her extension but has been making progress over the past couple of weeks with her therapist. She is currently at 4 degrees of active extension, 0 degrees of passive extension and 120 degrees of flexion. Her main concern is pain over the left side of the hip, which sound like trochanteric bursitis. I gave her some recommendations to help with this. She is scheduled to come back at the end of February, she would like to get repeat x-rays at that time, which is reasonable. Overall she is very happy with her knee and the progress she is making.We will plan on seeing her back in the outpatient setting unless anything else comes up before then. OFFICIAL documented in this encounter Plan of Treatment Not on filedocumented as of this encounter Visit Diagnoses Not on filedocumented in this encounter
--- OUTSIDE RECORDS SUMMARY | 2022-02-13 12:14 | XMS_ITS | Encounter Summary ---
:1950 Author Organization [facility] Address [address] [place] [address] Care Team Providers Name Role Phone Unavailable Primary Care Provider Unavailable Reason for Visit Reason Onset Date Comments Rx 03/31/2018 Communication 03/31/2018 Encounter Details Date Type Department Care Team Description 03/31/2018 Clinical Communication Department of Suhas Brown Rx; Communication Orthopedic Surgery Guilherme Baker in [address] [place] [address] [place], [place] [phone] (Work) [phone] Social History Tobacco Use Types Packs/Day Years [...] or relatives? How often do you attend confucianist or yazidism More than 4 time s per year 10/07/2020 services? Do you belong to any clubs or organizations No 10/07/2020 such as confucianist groups, unions, fraternal or athletic groups, or [...] place to sleep or slept in a fci (including now)? Sex Assigned at Date Recorded Female 03/15/2018 11:32 AM TAP OUT OPERATOR documented as of this encounter Miscellaneous Notes Telephone Encounter - James Billings M.D. - 04/01/2018 6:38 AM TAP OUT OPERATOR This has been sent. OUT OPERATOR Telephone Encounter - Marlee Espinosa - 03/31/2018 3:53 PM CST Please e-scribe dental antibiotics for cleaning next week. [facility] (pharmacy on file - see under incoming call) OUT OPERATOR documented in this encounter Plan of Treatment Not on filedocumented as of this encounter Visit Diagnoses Not on filedocumented in this encounter
--- OUTSIDE RECORDS SUMMARY | 2022-02-13 12:14 | XMS_ITS | Encounter Summary ---
:1950 Author Organization [facility] Address [address] [place] [address] Care Team Providers Name Role Phone Unavailable Primary Care Provider Unavailable Reason for Visit Reason Comments Post-op Pain Outpatient (Routine) - Closed Specialty Diagnoses / Procedures Referred By Contact Refer red To Contact Orthopedic Surgery Diagnoses Arthritis Knee Suhas Brown M.D. [facility] [address] [place] [address] Referral ID Status Reason Start Date Expiration Date Visits Requ ested Visits Authorized [id number] Closed 12/09/2017 12/09/2018 1 1 Encounter Details Date Type Department Care Team Description 03/15/2018 Office Visit Department of Suhas Brown I., Trochanter ic Bursitis Left Hip (Primary Dx); Orthopedic Surgery in Guilherme Arthritis Knee [place], [place] [address] [facility] [address] [place] [phone] Social History Tobacco Use Types Packs/Day Years [...] How often do you attend evangelical or restorationism More than 4 time s per year [...] or slept in a detention (including now)? Sex Assigned at Date Recorded Female 03/15/2018 11:32 AM SPRING REPAIRER HELPER HAND documented as of this encounter Progress Notes Suhas Brown M.D. - 03/15/2018 12:00 PM CST HISTORY OF PRESENT ILLNESS Patient returns today 3 months out from left total knee, and is doing great. The knee is much betterthan before surgery. No major issues. Her trochanteric bursitis has been bothering on the left side and she is ready for another injection today. PHYSICAL EXAMINATION Musculoskeletal: Left knee has great range of motion from 0 to 125 degrees. No evidence of varus, valgus, or AP instability. She has tenderness palpation over the left trochanter. Gait: Ambulates without a limp. Knee sheet filled out. IMPRESSION/REPORT/PLAN IMAGING STUDIES X-rays of the left TKA look great. No evidence of loosening or wear. Alignment is satisfactory. IMPRESSION 1. Satisfactory recheck status post left total knee arthroplasty 2. Left hip trochanteric bursitis I am very pleased with the patient's progress. The knee continues to function quite well. We will provide the patient with a left hip trochanteric bursa injection today. I would like to see the patientback according to our total joint registry follow up. We had a good discussion regarding ongoing care, activity recommendations, and follow-up. All questions were answered. NG REPAIRER HELPER HAND documented in this encounter Procedure Notes Milli Oscar M.D. - 03/15/2018 12:00 PM CSTAssociated Order(s): LARGE JOINT INJECTION Post-Procedure Diagnose(s): Trochanteric Bursitis Left Hip Btr-clvj-ydvomy-elbow arthrocentesis Date/Time: 03/15/2018 12:32 PM Performed by: MILLI OSCAR Authorized by: IMLLI OSCAR Risks discussed with: patient Procedural risks discussed, including (but not limited to) the following: allergic reaction, hematoma, infection, reaction to medication and subcut. fat atrophy Consent obtained: written The benefits, risks and alternatives to the possible need for blood products were discussed with thepatient and/or decision maker: not addressed All relevant documentation and testing were reviewed and available. All required blood products, implants, devices and/or special equipment were made available as applicable. The pre-procedure verification was conducted, the correct site was marked if required, and the procedural time out was conducted prior to performing the procedure and confirmed in a procedural pause: yes Procedure purpose: therapeutic Appropriate hand hygiene, gown, cap, mask, protective eyewear, sterile gloves, skin preparation, sterile drape, and strict aseptic technique were utilized as applicable for the procedure: yes Skin preparation: chlorhexidine Anesthesia method: none Procedure location: hip - Hip site: L greater troch bursa Patient position: side-lying Procedure performed: injection only Needle gauge: 22 G, length: 3 in The following medications were administered at the target site(s): Local anesthetic: 4 mL bupivacaine 0.5 % (5 mg/mL) Corticosteroid: 120 mg methylPREDNISolone acetate 40 mg/mL Procedure completed successfully: yes Complications: no apparent complications Discharge instructions: ice area as needed for comfort and follow-up with ordering provider Other procedure detail: The procedure site was marked by the proceduralist and verified with the patient. A time out/final pause was completed with verification of patient identity using two identifiers, confirmation of the site and side(s), agreement on the procedure to be performed, and appropriate fire risk assessment. NG REPAIRER HELPER HAND documented in this encounter Plan of Treatment Not on filedocumented as of this encounter Procedures Procedure Name Priority Date/Time Associated Diagnosis Comme nts AZ ARTHCS ASP/INJ Routine 03/15/2018 12:00 Trochanteric Bursit is Results for this MJR JWarren WO US PM SPRING REPAIRER HELPER HAND Left Hip procedure are i n the results section. documented in this encounter Results AZ ARTHCS ASP/INJ MJR JT WO US (03/15/2018 12:00 PM SPRING REPAIRER HELPER HAND) Narrative [facility] - 03/15/2018 12:00 PM SPRING REPAIRER HELPER HAND Milli Oscar M.D. ? 04/03/2018 ??6:11 PM Eqp-vetx-falqmr-elbow arthrocentesis Date/Time: 03/15/2018 12:32 PM Performed by: MILLI OSCAR Authorized by: MILLI OSCAR Risks discussed with: patient Procedural risks discussed, including (b ut not limited to) the following: allergic reaction, hematoma, infection, reaction to medication and subcut. fat atrophy Consent obtained: written The benefits, risks and alternatives to the possible need for blood products were discussed with the patient and/or decision maker: not addressed All relevant documentation and testing w ere reviewed and available. All required blood products, implants, devic es and/or special equipment were made available as applicable. The pre-pr ocedure verification was conducted, the correct site was marked i f required, and the procedural time out was conducted prior to performi ng the procedure and confirmed in a procedural pause: yes ?? Procedure purpose: therapeutic Appropriate hand hygiene, gown, cap, mas k, protective eyewear, sterile gloves, skin preparation, sterile drape, and strict aseptic technique were utilized as applicable for the procedure : yes ?? Skin preparation: chlorhexidine Anesthesia method: none Procedure location: hip - Hip site: L greater troch bursa Patient position: side-lying Procedure performed: injection only Needle gauge: 22 G, length: 3 in The following medications were administe red at the target site(s): ??Local anesthetic: 4 mL bupivacaine 0. 5 % (5 mg/mL) ??Corticosteroid: 120 mg methylPREDNISo lone acetate 40 mg/mL Procedure completed successfully: yes Complications: no apparent complications ?Discharge instructions: ice area as n eeded for comfort and follow-up with ordering provider Other procedure detail: The procedure si te was marked by the proceduralist and verified with the patient. A time ou t/final pause was completed with verification of patient identity using t wo identifiers, confirmation of the site and side(s), agreement on the p rocedure to be performed, and appropriate fire risk assessment. Milli Oscar M.D., B.S. PROCEDURE/MINOR SURGICAL O RDERABLES Performing Organization Address City/State/ZIP Code Phon e Number [facility] MM[facility]AL NA documented in this encounter Visit Diagnoses Diagnosis Trochanteric Bursitis Left Hip - Primary Arthritis Knee documented in this encounter Administered Medications Inactive Administered Medications - up to 3 most recent administrations Medication Order MAR Action Action Date Dose Rate Site bupivacaine 0.5 % (5 mg/mL) Given 03/15/2018 12:32 PM SPRING REPAIRER HELPER HAND 4 mL injection 4 mL (MARCAINE) 4 mL, infiltration, One-Time Injection, Starting on Wed03/15/18 at 1232, For 1 dose methylPREDNISolone acetate injection 120 mg Given 02/26 12:32 PM SPRING REPAIRER HELPER HAND 120 mg (DEPO-Medrol) 120 mg, intra-articular, One-Time Injection, Starting on Wed03/15/18 at 1232, For 1 dose documented in this encounter
--- OUTSIDE RECORDS SUMMARY | 2022-02-13 12:14 | XMS_ITS | Encounter Summary ---
:1950 Author Organization [facility] Address [address] [place] [address] Care Team Providers Name Role Phone Unavailable Primary Care Provider Unavailable Encounter Details Date Type Department Care Team Description 01/26/2018 Clinical Communication Department of Sneha Moreno, Orthopedic Surgery in [place].-., .[place]. [place], [place] [address] [facility] [address] [place] [phone] [phone] Social History Tobacco Use Types Packs/Day Years [...] or relatives? How often do you attend pentecostalism or caodaism More than 4 time s per year 10/07/2020 services? Do you belong to any clubs or organizations No 10/07/2020 such as pentecostalism groups, unions, fraternal or athletic groups, or [...] slept in a long term (including now)? Sex Assigned at Date Recorded Female 03/15/2018 11:32 AM CORK TILE FLOOR LAYER documented as of this encounter Miscellaneous Notes Telephone Encounter - Sneha Moreno P.A.-C., M.S. - 01/26/2018 2:48 PM CDT I spoke to the patient today. She has been working on her extension. She saw her primary care provider today who thought that her leg was straight. Overall, Mrs. Caba states that she is very happy with how her knee is coming along her primary concern at this point is some lateral hip and buttock pain. She is also going to follow up with a physical therapist to continue to work on her motion. documented in this encounter Plan of Treatment Not on filedocumented as of this encounter Visit Diagnoses Not on filedocumented in this encounter
--- OUTSIDE RECORDS SUMMARY | 2022-02-13 12:14 | XMS_ITS | Encounter Summary ---
:1950 Author Organization [facility] Address [address] [place] [address] Care Team Providers Name Role Phone Unavailable Primary Care Provider Unavailable Reason for Visit Auth/Cert Specialty Diagnoses / Procedures Referred By Contact Refer red To Contact Diagnoses Other Specified Arthritis Left Knee Procedures MI ARTHRO KNEE CONDYLE&PLAT (TKA) ARTHROPLASTY REPLACEMENT TOTAL KNEE Referral ID Status Reason Start Date Expiration Date Visits Requ ested Visits Authorized [id number] 1 1 Encounter Details Date Type Department Care Team Description 12/09/2017 Surgery [facility] OR Suhas Brown I., ARTHROPLASTY REPLACEMENT [address] [facility]. TOTAL KNEE. [place], [place] [address] [facility] [id number] [place], [place] [phone] [id number] Social History Tobacco Use Types Packs/Day Years [...] How often do you attend jainism or sabianist More than 4 time s [...] or slept in a ch[facility] (including now)? Sex Assigned at Date Recorded Female 03/15/2018 11:32 AM [employer]TER documented as of this encounter Last Filed Vital Signs Vital Sign Reading Time Taken Comments Blood Pressure 117/80 12/09/2017 10:45 AM CDT Pulse 70 12/09/2017 10:45 AM CDT Temperature 36.5 ??C (97.7 ??F) 12/09/2017 10:30 AM CDT Respiratory Rate 18 12/09/2017 10:45 AM CDT Oxygen Saturation 100% 12/09/2017 10:45 AM CDT Inhaled Oxygen Concentration - - Weight 118 kg (259 lb 14.8 oz) 12/09/2017 5:54 AM CDT Height 167 cm (5' 5.75) 12/09/2017 5:54 AM CDT Body Mass Index 42.27 12/09/2017 5:54 AM CDT documented in this encounter Discharge Summaries Lan Rader M.D. - 12/09/2017 4:30 PM CDT DISCHARGE SUMMARY BRIEF OVERVIEW Discharge Provider: Suhas Brown M.D. No primary care provider on file. Primary Care Provider Phone Number: None Primary Care Provider Fax Number: None Other Providers: None Admission Date: 12/09/2017 Discharge Date: 12/11/2017 PRINCIPAL DIAGNOSIS Left knee osteoarthritis SECONDARY DIAGNOSES None Operative Procedures: Scheduled (Aga), Completed (Comp) or Canceled (Can) Case IDs Date Procedure Surgeon Location Status [id number] 12/09/17 ARTHROPLASTY REPLACEMENT TOTAL KNEE. Suhas Brown M.D. [facility] OR Comp DISCHARGE DISPOSITION Home or Self Care [1] ACTIVE ISSUES REQUIRING FOLLOW UP None OUTPATIENT FOLLOW UP Dr. Suhas Brown in 3 months. TEST RESULTS PENDING AT DISCHARGE DETAILS OF HOSPITAL STAY REASON FOR ADMISSION Left knee osteoarthritis HOSPITAL COURSE The patient was admitted and underwent left total knee arthroplasty on 12/09/17. The procedure was tolerated without any difficulty. Please see Dr. Brown's operative note for full details of the procedure. Antibiotics were given in the perioperative period. Following surgery, pain was controlled with intravenous medications and these were weaned to oral medications as the patient tolerated. Physical therapy was consulted for assistance with mobilization. The patient was maintained on appropriate DVT/PE prophylaxis. The remainder of the hospital course was uncomplicated. At the time of dismissal, vitals signs were stable, a general diet was tolerated, pain was controlled with oral agents and all disc harge criteria were met. CONSULTS ORDERED DURING THIS ADMISSION None CONDITION AT DISCHARGE stable Discharge instructions were provided to the patient and caregiver(s). documented in this encounter Medications at Time of Discharge Medication Sig Dispensed Refills Start Date End Date azelastine (ASTELIN) 137 Administer 1 spray 0 [...] 0 016 mg tablet mouth at bedtime. albuterol (PROVENTIL Inhale 2 puffs as 0 06/30/19 15 HFA,VENTOLIN HFA) 90 needed for shortness mcg/actuation inhaler of breath. ytzouwk-jsihpplmxbygo-dj Take 1 tablet by 0 07/09/2020 ffeine [...] (PriLOSEC) 20 Take 1 capsule by 0 2 07/09/2020 mg capsule mouth 2 (two) times a day. sennosides-docusate Take 1 tablet by 60 tablet 0 12/09/2017 01/08/2018 sodium (SENOKOT-S) mouth 2 (two) times a 8.6-50 mg per tablet day. acetaminophen (TYLENOL) Take 2 tablets (1,000 60 tablet 1 0 12/09/2017 07/09/2020 500 mg tablet mg total) by mouth every 6 (six) hours. oxyCODONE (ROXICODONE) 5 Take 1 tablet (5 [...] 1 tablet (50 mg 40 tablet 0 01/10/2018 tabletIndications: total) by mouth every Prolonged Acute 6 (six) hours as Pain/Traumatic Injury needed for mild pain or score 1-3 of 10 Indications: Prolonged Acute Pain/Traumatic Injury. documented as of this encounter Progress Notes Dior Arias P.T., D.P.T. - 12/11/2017 11:33 AM CDT Physical Therapy Acute Hospital Inpatient Progress Note SUBJECTIVE Patient's Name: Mindi Caba Reason for Referral: left total knee arthroplasty, weight bearing as tolerated. Medical Diagnosis: 1. Arthritis Knee 2. Difficulty Walking Orthopedic Knee Cause Onset Date: 12/09/17 Patient/Caregiver Goals: Patient would like to return to home with assist from her . Patient Comments: Patient intends to have her install a grab bar at the main entrance. OBJECTIVE Pain Assessment Pain Assessment: 0-10 Numeric Pain Intensity Scale Pain Score: 1 Pain Type: Surgical pain Pain Location: Knee Pain Orientation: Left Treatment: Treatment consisted of: Bed Mobility/Transfers: Bed Mobility - Supine to Sit # of Assistants: 1 Level of Assistance: Independent Device: None Bed Mobility - Sit to Supine # of Assistants: 1 Level of Assistance: Independent Device: None Transfer - Sit to Stand # of Assistants: 1 Device: Front wheeled walker Level of Assistance: Supervision/Set-up Transfer - Stand to Sit # of Assistants: 1 Level of Assistance: Supervision/Set-up Device: Front wheeled walker Therapeutic exercise: Exercise - Protocol Total Joints Exercise Comment: Performed the exercises from the rehab booklet, and measured 0-95 degrees. She demonstrates ability to teach back the exercises. Gait/Stair/Wheelchair Training: Gait Training # of Assistants: 1 Level of Assistance: Supervision/Set-up Device: Front wheeled walker Distance (m): 55 m Cuing: Verbal Quality: (step-through) Assessment of Gait: improving rate and continual movement without pain Stairs # of Assistants: 1 Level of Assistance: Minimal assistance, Supervision/Set-up (cues for pattern) # Stairs: 6 Rails: 1 Device: Single point cane Comments: Other (Comment) ( will have to be the rail at the entrance until he gets a grab barinstalled. ) Measures - Tools Assessment Clinical Impression: Patient is demonstrating improvement in transfer techniques, transfer independence, transfer safety,gait quality, gait safety and stairs safety. Patient continues to improve and anticipate she is ready to discharge to home today. Barriers to Discharge: None Discharge Recommendation: Intermittent supervision Functional Goals and Timeframes: PT Inpatient Goals PT Goal #1: Teach-back the total knee arthroplasty home exercise program. GOAL MET PT Goal #2: Supine to/from sit edge of bed with supervision. MET PT Goal #3: Transfers to/from multiple levels using front wheeled walker with supervision. MET PT Goal #4: Gait using front wheeled walker 50 meters with supervision. Up/down 2 steps without railand 7 with rail min assist x 1.GOAL MET Plan Treatment Plan: Frequency: Duration: Plan: Discontinue therapy Other PT Comments: Patient can have nurse contact PT later today if questions arise. Otherwise goalsmet. Dismissed from PT. Time Spent with Patient Gait Training (min): 24 min Therapeutic Exercise (min): 18 min Total Timed Units (min): 42 min Total Treatment Time (min): 42 min Functional G-code Worksheet Dior Arias P.T., D.P.TBrayan Lan Rader M.D. - 12/11/2017 8:45 AM CDT S: No acute events overnight. No chest pain, shortness of breath, nausea, vomiting, fever, chills. Painis well controlled. O: BP 117/71 Pulse (!) 57 Temp 36.6 ??C (Oral) Resp 16 Ht 167 cm Wt 117.9 kg SpO2 92% BMI42.27 kg/m?? Alert, oriented No acute distress Non labored breathing Calf soft non tender Neurovascularly intact with palpable pulses, brisk cap refill. Sensation intact grossly to light touch throughout dermatomes. Fires tib ant, gastroc, ehl, fhl. Fires quads. Aquacel cdi. No results found for this or any previous visit (from the past 24 hour(s)). A: Mindi Caba is a 67 y.o. female s/p Operative Procedures: Scheduled (Aga), Completed (Comp) or Canceled (Can) Case IDs Date Procedure Surgeon Location Status [id number] 12/09/17 ARTHROPLASTY REPLACEMENT TOTAL KNEE. Suhas Brown M.D. [facility] OR Comp on 12/09/2017. Doing well. Plan: Weightbearing: WBAT DVT ppx: Xarelto, SCDs, early mobilization Cultures: None Antibiotics: Perioperative antibiotic x 24 hrs. Diet: General diet Pain control: Multimodal with tylenol, tramadol, oxycodone. Perioperative intraarticular injection, toradol Drains: None Labs: no AM labs Consults: PT Incentive spirometry Disposition: Home today pending therapy Lan Rader MD Lower Extremity Reconstruction Fellow Collins Jerry P.T., D.P.T. - 12/10/2017 9:10 AM CDT Physical Therapy Acute Hospital Inpatient Progress Note SUBJECTIVE Patient's Name: Mindi Caba Reason for Referral: left total knee arthroplasty, weight bearing as tolerated. Medical Diagnosis: 1. Arthritis Knee 2. Difficulty Walking Orthopedic Knee Cause Onset Date: 12/09/17 Patient/Caregiver Goals: Patient would like to return to home with assist from her . Patient Comments: Patient plans to discharge to home Wednesday with assist from . In the afternoon, patient had increased pain in her left knee. Nursing administered pain meds. Returned an hour later and pain was much improved at 3/10. Weight Bearing Status: weight bearing as tolerated left LE OBJECTIVE Pain Assessment Pain Assessment: 0-10 Numeric Pain Intensity Scale Pain Score: 3 Pain Location: Knee Pain Orientation: Left Treatment: Treatment consisted of: Bed Mobility/Transfers: Bed Mobility - Supine to Sit # of Assistants: 1 Level of Assistance: Independent Device: None Bed Mobility - Sit to Supine # of Assistants: 1 Level of Assistance: Independent Device: None Transfer - Sit to Stand # of Assistants: 1 Device: Front wheeled walker Level of Assistance: Supervision/Set-up Transfer - Stand to Sit # of Assistants: 1 Level of Assistance: Supervision/Set-up Device: Front wheeled walker Therapeutic exercise: Exercise - Protocol Total Joints Exercise Comment: Left knee range of motion: 0-95 degrees. Reviewed the total knee arthroplasty home exercise program from Rehabilitation After Knee Replacement [id number] with addition of towel exercise for flexion/extension range of motion, weight bearing as tolerated left LE. Gait/Stair/Wheelchair Training: Gait Training # of Assistants: 1 Level of Assistance: Supervision/Set-up Device: Front wheeled walker Distance (m): 55 m (AM: 55 PM: 55) Cuing: Verbal (heel/toe pattern on left and step-through pattern) Stairs # of Assistants: 1 Level of Assistance: Minimal assistance (cues for pattern) # Stairs: 6 Rails: 1 Device: Single point cane Measures - Tools AM-PAC Mobility: How much difficulty does the patient currently have??? Turning over in bed (including adjusting bedclothes, sheets and blankets)?: None Sitting down on and standing up from a chair with arms (e.g., wheelchair, bedside commode, etc.): A Little Moving from lying on back to sitting on the side of the bed?: None AM-PAC Mobility: How much help from another person does the patient currently need??? Moving to and from a bed to a chair: A Little Need to walk in hospital room?: A Little Climbing 3-5 steps with a railing?: A Little AM-PAC Mobility: Score Basic Mobility Raw Score: 20 Basic Mobility Standardized Score: 47.67 CMS 0-100% Score: 35.83 % Basic Mobility CMS Modifier: CJ Assessment Clinical Impression: Patient is demonstrating improvement in transfer techniques, transfer independence, transfer safety,gait quality, gait safety and stairs safety. Patient up to chair in AM. Patient had break-through pain in the early afternoon but improved prior to session in the PM. Patient up to chair. Patient continues to have functional limitations in the following: gait and stairs. Patient instructed to have assistance with all transfers and gait. Patient's vital signs remained stable during session. Discussed patient's functional abilities, safety, precautions/restrictions, assistance required, andpatient's tolerance to therapy interventions with nursing handoff. Barriers to Discharge: None Discharge Recommendation: Intermittent supervision Functional Goals and Timeframes: PT Inpatient Goals PT Goal #1: Teach-back the total knee arthroplasty home exercise program. PT Goal #2: Supine to/from sit edge of bed with supervision. MET PT Goal #3: Transfers to/from multiple levels using front wheeled walker with supervision. MET PT Goal #4: Gait using front wheeled walker 50 meters with supervision. Up/down 2 steps without railand 7 with rail min assist x 1. Plan Treatment Plan: Frequency: Twice a day Duration: ongoing until goals met or discharged Plan: Plan of care initiated Plan Comments: bed transfers, transfers, gait progression, stairs with and without rail, total knee arthroplasty home exercise program. Treatment interventions may include: Therapeutic exercise, Therapeutic functional activity, Self-care/home management, Gait training Time Spent with Patient Therapeutic Activity (min): 30 min Therapeutic Exercise (min): 32 min Total Timed Units (min): 62 min Total Treatment Time (min): 62 min Functional G-code Worksheet Basic Mobility Raw Score: 20 Basic Mobility Standardized Score: 47.67 CMS 0-100% Score: 35.83 % Basic Mobility CMS Modifier: FADI Jerry PEric., D.P.T. Lan Rader M.D. - 12/10/2017 7:57 AM CDT S: No acute events overnight. No chest pain, shortness of breath, nausea, vomiting, fever, chills. Painis well controlled. O: BP 114/73 (BP Location: Left arm;Lower, Patient Position: Lying) Pulse (!) 53 Temp 36.5 ??C (Oral) Resp 17 Ht 167 cm Wt 117.9 kg SpO2 97% BMI 42.27 kg/m?? Alert, oriented No acute distress Non labored breathing Calf soft non tender Neurovascularly intact with palpable pulses, brisk cap refill. Sensation intact grossly to light touch throughout dermatomes. Fires tib ant, gastroc, ehl, fhl. Fires quads. Incision cdi, Aquacel applied. Recent Results (from the past 24 hour(s)) Electrolyte (Chem 4) Panel Collection Time: 12/10/17 4:21 AM Result Value Potassium, P 4.9 Sodium, P 141 Chloride, P 106 Bicarbonate, P 25 Anion Gap, P 10 CBC without Differential Collection Time: 12/10/17 4:22 AM Result Value Hemoglobin 11.6 Hematocrit 36.7 Erythrocytes 3.99 MCV 92.0 RBC Distrib Width 13.4 Platelet Count 212 Leukocytes 11.0 (H) A: Mindi Caba is a 67 y.o. female s/p Operative Procedures: Scheduled (Aga), Completed (Comp) or Canceled (Can) Case IDs Date Procedure Surgeon Location Status [id number] 12/09/17 ARTHROPLASTY REPLACEMENT TOTAL KNEE. Suhas Brown M.D. [facility] OR Comp on 12/09/2017. Doing well. Plan: Weightbearing: WBAT DVT ppx: Xarelto, SCDs, early mobilization Cultures: None Antibiotics: Perioperative antibiotic x 24 hrs. Diet: General diet Pain control: Multimodal with tylenol, tramadol, oxycodone. Perioperative intraarticular injection, toradol Drains: None Labs: AM CBC, BMP unremarkable Consults: PT Incentive spirometry Disposition: Home pending therapy and medical stability. Guilherme Eric - 12/09/2017 7:18 AM CDT Encounter: Initial contact on Station 2-4. Natalie Tradition: Mrs. Caba is affiliated with the [employer]. She did not express anyspiritual needs at this time. Plan: No plan to follow up at this time. A electrical and radio aircraft mechanic can be contacted by paging [phone] ([email or web address]). documented in this encounter H&P Notes Lan Rader M.D. - 12/09/2017 7:20 AM CDT INTERVAL HISTORY AND PHYSICAL PRE-PROCEDURE UPDATE H&P reviewed. The patient was examined and there are no significant changes to the H&P. Lan Rader M.D. Source Note - Anika Rolon PTracee.Alesha., M.S. - 12/08/2017 1:00 PM CDT SUBJECTIVE Referring Provider: Sneha Moreno P.A.-C., M.S. Chief Complaint/Reason for Visit Sheree procedural anticoagulation recommendations History of Present Illness Ms. Mindi Caba is a very pleasant 67 y.o. female who presents to the [facility] for sheree procedural anticoagulation recommendations. Patient's medical history significant for lefthip and right knee replacements, osteoarthritis, obesity, sleep apnea, GERD, and hypothyroidism. Patient will be undergoing left knee replacement tomorrow, December 09. Mrs. Caba underwent left hip arthroplasty in 2015. She developed hip dislocation 8 days postoperatively. She was put into an immobilize are brace following that event. Two weeks later she was diagnosed with pulmonary embolus. Ultrasounds of the lower extremities were negative for DVT. Patient was i nitiated on Lovenox with transition to warfarin. She completed 1 year of therapy. She denies any bleeding complications while on warfarin but had to have occasional dose adjustment. In 2016 the patient had her 1st episode of venous thromboembolism. There is family history venous thromboembolism. Patient's sister has had recurrent thrombotic events and tested positive she believes for Factor V Leiden. She is on long-term anticoagulation now. The patient's niece was also tested andfound to have Factor V Leiden mutation. The patient herself underwent testing approximately 10 yearsago and this was negative. VTE History VTE history: Provoked Post phlebitic syndrome: no Thrombophilia History: no Family history of VTE: sister(s) and Sister's daughter IVC Filter: No Thrombolytic Therapy: No Review of Systems A 10 point review of systems was completed with pertinent negatives and positives noted above in theHPI. The following portions of the patient's history were reviewed and updated as appropriate: allergies,current medications, family history, medical history, social history, surgical history, problem list, labs, diagnostics tests. I reviewed the pertinent clinical notes in the electronic health record. OBJECTIVE Physical Examination Vitals: 12/08/17 1102 BP: 128/84 BP Location: Left arm Patient Position: Sitting Pulse: 73 Weight: 118.5 kg Height: 166.6 cm General: Patient is a female in no acute distress. Skin: Warm, dry and pink with good turgor. No rashes or ecchymosis seen. Head: Atraumatic and normocephalic. Eyes: Sclerae nonicteric with no injection and no drainage. ENT: Mucosa pink and moist. Neck is supple with full range of motion. Lungs: Non-labored breathing, no cyanosis noted. No crackles or wheezes appreciated. Extremities: Mild edema noted in lower extremities bilaterally. No upper extremity edema noted. Gait: Steady and stable without use of gait aid. Mental: Alert and oriented with normal affect. Diagnostic Findings: Pertinent laboratory and imaging studies have been reviewed and are notable for the following: See below. Laboratory data Lab Results Component Value Date WBC 7.1 12/08/2017 HGB 13.7 12/08/2017 HCT 42.7 12/08/2017 MCV 90.9 12/08/2017 PLT 246 12/08/2017 Lab Results Component Value Date CREATININE 0.89 12/08/2017 Results from last 7 days Lab Units 12/08/17 0901 PROTHROMBIN TIME PTLTP sec 12.0 INR 1.1 ASSESSMENT / PLAN #1 Thrombosis Deep Vein Personal History #2 Anticoagulant Therapy Mrs. Caba is a very pleasant 67-year-old female referred to Thrombophilia department for sheree procedural anticoagulation recommendations. She will be undergoing left knee replacement tomorrow, December 09. She has history of 1 provoked episode following left hip replacement 2 years ago. With prior history of provoked venous thromboembolism the patient is at increased risk for postoperative VTEcomplications. Both the Pauda and Caprini scores designate her risk as high. Therefore, I would recommend chemical DVT prophylaxis in the postoperative setting. Patient can be started on 40 mg Lovenox hopefully 24 hr postoperatively. Final decision will be at the description ofthe surgical team based on hemostasis. Lovenox can be utilize while hospitalized and then patient can transition to oral anticoagulation upon discharge. Oral anticoagulation options include warfarin, Eliquis, or Xarelto therapies. Warfarin with the goalINR range of 2-3 would be appropriate. We also discussed the option of Eliquis at 2.5 mg b.i.d. or Xarelto 10 mg b.i.d. for prophylaxis. Would recommend treatment for 1 month postoperatively. Patient will check with her insurance regarding coverage of Eliquis and Xarelto. She can then contact me or her surgical service with this information and which anticoagulants option she wishes to pursue. It was a pleasure to meet Mrs. Caba in clinic today. No formal followup has been scheduled with the Thrombophilia department that would be happy to see her back at any time as needed. I hope her surgery tomorrow goes well. RECOMMENDATIONS: 1. Postoperative, outpatient DVT prophylaxis with either warfarin, Eliquis (2.5 mg b.i.d.), or Xarelto (10 mg q.d.). 2. Continue DVT prophylaxis for 1 month postoperatively. Anika Rolon P.A.-C., M.S. Total time spent with patient: 30 minutes. Time spent in counselin minutes. documented in this encounter Consult Notes Collins Jerry P.T., D.P.T. - 12/09/2017 3:30 PM CDT Physical Therapy Acute Hospital Inpatient Evaluation/Treatment SUBJECTIVE Patient's Name: Mindi Caba Reason for Referral: left total knee arthroplasty, weight bearing as tolerated. Medical Diagnosis: 1. Arthritis Knee 2. Difficulty Walking Orthopedic Knee Cause Onset Date: 12/09/17 Payor: [employer] / Plan: [employer] [place] / Product Type: Cost Share / Pertinent Medical/Surgical History: Patient Active Problem List Diagnosis ??? Other [...] TOTAL KNEE.; Surgeon: Suhas Brown M.D.; Location: [facility] OR ??? ARTHROSCOPY KNEE Left 2003 ??? BACK SURGERY 2002 L4 and L5 fusion ??? BUNIONECTOMY Right 2007 ??? CAESAREAN SECTION 1984 ??? CARPAL TUNNEL RELEASE Bilateral 1988 ??? SECTION ??? CHOLECYSTECTOMY 2001 ??? HIATAL HERNIA REPAIR 2008 ??? HIP ARTHROPLASTY TOTAL Left 07/18/2015 hip arthroplasty total ??? JOINT REPLACEMENT ??? KNEE ARTHROPLASTY Right 05/02/2012 >Right total knee arthroplasty utilizing a Kailey Triathlon size 4 posterior- stabilized femur; a size 4 ??? LAPAROSCOPIC GASTRIC BANDING 2007 ??? OOPHORECTOMY Left 2002 ??? SINUS SURGERY 03/1998 Mindi Caba is a 67 y.o. female who is referred to physical therapy for evaluation. Historyof Present Illness: s/p left total knee arthroplasty due to degenerative joint disease 12/09/2017 SeeHospital Admission History and Physical for full history of present illness. Patient/Caregiver Goals: Patient would like to return to home with assist from her . Patient Comments: Patient feels well. Prior Level of Function: Prior Function / Occupational Profile Level of Tatums: Independent with ADLs and functional transfers, Independent with homemaking with ambulation Lives With: Spouse ADL Assistance: Independent Homemaking Assistance: Independent Occupational Role: Retired Home Equipment Gait Devices: (front wheeled walker, cane, four-wheeled walker, toilet riser, shower chair) Home Living Type of Home: House Home Layout: Multi-level, Stairs to alternate level with rails Home Access: Stairs to enter without rails Entrance Stairs-Number of Steps: 2; 7 with rail inside Bathroom Shower/Tub: Tub/shower unit Bathroom Toilet: Standard OBJECTIVE Pain Assessment Pain Assessment: 0-10 Numeric Pain Intensity Scale Pain Score: 3 Pain Location: Knee Pain Orientation: Left Activity/Events: Other (comment) (vital signs reviewed in chart prior to session) Precautions Weight Bearing Status: weight bearing as tolerated left LE Cognition: Overall Cognitive Status: Intact Range of Motion: Left knee 5-95 degrees Strength: fires gluteals, quadriceps, hamstrings, ankle groups 5/5 Sensation: sensation intact to light touch in involved extremity OTHER: calves soft and non-tender and soft Jose G Auguste dressing, urinary catheter. Measures - Tools AM-PAC Mobility: How much difficulty does the patient currently have??? Turning over in bed (including adjusting bedclothes, sheets and blankets)?: A Little Sitting down on and standing up from a chair with arms (e.g., wheelchair, bedside commode, etc.): A Little Moving from lying on back to sitting on the side of the bed?: A Little AM-PAC Mobility: How much help from another person does the patient currently need??? Moving to and from a bed to a chair: A Little Need to walk in hospital room?: A Little Climbing 3-5 steps with a railing?: A Lot AM-PAC Mobility: Score Basic Mobility Raw Score: 17 Basic Mobility Standardized Score: 42.13 CMS 0-100% Score: 50.57 % Basic Mobility CMS Modifier: CK Treatment: Treatment consisted of: Bed Mobility/Transfers: Bed Mobility - Supine to Sit # of Assistants: 1 Level of Assistance: Minimal assistance Cuing: Tactile Comments: assist with left LE and trunk lift Transfer - Sit to Stand # of Assistants: 1 Device: Front wheeled walker Level of Assistance: Minimal assistance Comments: cues for hand placements Transfer - Stand to Sit # of Assistants: 1 Level of Assistance: Minimal assistance Device: Front wheeled walker Therapeutic exercise: Exercise - Protocol Total Joints Exercise: Total knee Total Joints Exercise Comment: Instructed in the total knee arthroplasty home exercise program from [facility] K[facility]placement [id number] with addition of towel exercise for flexion/extensionrange of motion, weight bearing as tolerated left LE. Gait/Stair/Wheelchair Training: Gait Training # of Assistants: 1 Level of Assistance: Minimal assistance Device: Front wheeled walker Distance (m): 20 m Quality: Step to Assessment Clinical Impression: Physical therapy treatment is medically necessary to restore and maximize function, maximize safety and facilitate discharge to home, teach and educate the patient and/or caregivers. Patient up to chair. Functional Limitations: bed mobility, transfers, gait, stairs and self care. Patient instructed to have assistance with all transfers and gait. Patient's vital signs remained stable during session. Discussed patient's functional abilities, safety, precautions/restrictions, assistance required, andpatient's tolerance to therapy interventions with nursing handoff. Rehab Potential: Ms. Caba has Excellent potential to achieve established physical therapy goals within the time frame outlined below. Barriers to Discharge: None Discharge Recommendation: Intermittent supervision Functional Goals and Timeframes: PT Inpatient Goals PT Goal #1: Teach-back the total knee arthroplasty home exercise program. PT Goal #2: Supine to/from sit edge of bed with supervision. PT Goal #3: Transfers to/from multiple levels using front wheeled walker with supervision. PT Goal #4: Gait using front wheeled walker 50 meters with supervision. Up/down 2 steps without railand 7 with rail min assist x 1. Progress: Progressing toward goals Plan Patient agrees with the plan of care and goals. Treatment Plan: Frequency: Twice a day Duration: ongoing until goals met or discharged Plan: Plan of care initiated Plan Comments: bed transfers, transfers, gait progression, stairs with and without rail, total knee arthroplasty home exercise program. Treatment interventions may include: Therapeutic exercise, Therapeutic functional activity, Self-care/home management, Gait training Clinical Presentation: Stable Number of Examination Elements:4+ Clinical Decision Making: Low: no complicating factors, 1-2 eval elements, stable clinical presentation Time Spent with Patient PT Evaluation (min): 10 min Therapeutic Activity (min): 15 min Therapeutic Exercise (min): 12 min Total Timed Units (min): 27 min Total Treatment Time (min): 37 min Functional G-code Worksheet Basic Mobility Raw Score: 17 Basic Mobility Standardized Score: 42.13 CMS 0-100% Score: 50.57 % Basic Mobility CMS Modifier: RAF Jerry P.T., D.P.T. documented in this encounter Nursing Notes Irena Jackman R.N. - 12/11/2017 2:53 PM CDT Goals: DISCHARGE PLANNING ??? Patient discharge needs identified Adequate for Discharge INFECTION - ADULT ??? Absence of infection during hospitalization Adequate for Discharge KNOWLEDGE DEFICIT ??? Patient/family/caregiver demonstrates understanding of disease process, treatment plan, medications, and discharge instructions Adequate for Discharge PAIN - ADULT ??? PT VERBALIZES/DEMONSTRATES ADEQUATE COMFORT LEVEL OR BASELINE Adequate for Discharge SAFETY ADULT ??? Maintain a safe environment Adequate for Discharge SAFETY ADULT - RISK FOR FALL AND OR FALL INJURY ??? Patient remains free from fall/fall injury Adequate for Discharge SKIN/TISSUE INTEGRITY ??? Skin/Tissue integrity maintained or improved Adequate for Discharge ??? Oral and Nasal mucous membranes remain intact Adequate for Discharge Clinical Goals for the Shift: Patient will report pain at a tolerable level during this shift. Identify possible barriers to meeting goals/advancing plan of care: none Stability of the patient: Moderately Stable - Low risk of patient condition declining or worsening End of Shift Summary: Patient's pain was adequately controlled during this shift and by discharge with po medications. Irena Jackman R.N. - 12/11/2017 2:53 PM CDT Patient discharged from [facility] at 3:00 PM to Home Self Care. Transportation provided by family. Patient's dismissal medications: tylenol, xarelto, oxycodone, senna, and tramadol were filled at [facility] pharmacy. Education was discussed with patient and all questions were answered. Marisa Krishnan R.N. - 12/11/2017 7:06 AM CDT Goals: Clinical Goals for the Shift: patient will rest and get a good nights sleep Identify possible barriers to meeting goals/advancing plan of care: none Stability of the patient: Moderately Stable - Low risk of patient condition declining or worsening End of Shift Summary: Patient was able to rest peacefully last night Subha Barraza R.N. - 12/10/2017 7:23 AM CDT Goals: Clinical Goals for the Shift: Patient will rest as much as possible during the hourly shift manager. Identify possible barriers to meeting goals/advancing plan of care: none Stability of the patient: Moderately Stable - Low risk of patient condition declining or worsening End of Shift Summary: Patient didn't get much sleep but rested throughout the night. documented in this encounter OR Notes Op Note - Suhas Brown M.D. - 12/09/2017 8:21 AM CDT FULL OP NOTE Procedure(s): ARTHROPLASTY REPLACEMENT TOTAL KNEE. (Left) Surgeon(s) and Role: * Suhas Brown M.D. - Primary * Lan Rader M.D. Anesthesia Type: General Pre-Operative Diagnosis: Other Specified Arthritis Left Knee [M13.862]. Post-Operative Diagnosis: Same as pre-operative diagnosis Findings: As expected Complications: None Description of Procedure: Primary total knee arthroplasty with tourniquet CPT code: 35923 INDICATION Knee pain. PREOP DIAGNOSIS End-stage degenerative arthritis POSTOP DIAGNOSIS End-stage degenerative arthritis PROCEDURE Left posterior-stabilized cemented primary total knee arthroplasty. COMPLICATIONS None immediately apparent. Anesthesia was induced consisting of satisfactory general anesthetic local periarticular injection. The patient was placed in the supine position on the operating room table. All bony prominences werewell padded. A pneumatic tourniquet was placed on the thigh, and the lower extremity was prepped anddraped in the usual sterile fashion. A surgical pause was conducted to identify and verify the appropriate patient, surgical site, surgical site marking, and that antibiotics had been administered prior to incision in accordance with our institution???s guidelines. The tourniquet was then inflated. Total tourniquet time was 63 min. A straight midline anterior longitudinal incision was performed with the knee in flexion. Dissection was carried through the subcutaneous tissue to the level of the fascia. A standard medial parapatellar arthrotomy was performed. A mid-coronal plane release of the superficial and deep MCL was carried out off the proximal tibia. The anterior and posterior cruciate ligaments were excised. A hole was drilled just anterior to the femoral origin of the posterior cruciate ligament, and an intramedullary guide magnolia was introduced with a distal femoral cutting guide set for 5 degrees of valgus. A distal femoral cut was then performed. The femur was sized and found to size best to a size 5. The 4-in-1 cutting block was then applied. Optimal implant rotation was identified, and anterior and posterior condylar cuts were performed. Care was taken not to notch the anterior femur. Anterior and posterior chamfer cuts were performed. An extramedullary alignment guide was used to cut the tibia perpendicular to its axis in the frontal plane and in line with [place] tibial slope. The tibia was sized and found to size best to a size 5. Alignment of the tibial cut was checked and found to be satisfactory. An intramedullary Nicholas was placed, and the medial and lateral menisci were excised. Posteriorfemoral osteophytes were removed using a 3/4-inch curved osteotome. A Eleven-mm spacer block was placed in flexion and extension, and the medial and lateral joint spaces were assessed in valgus and varus stress, respectively. The knee was found to be well-balanced. The femoral finishing block was then pinned in place, and the box cut was made on the femur. Trial components were then placed, and a size 11-mm posterior-stabilized polyethylene insert was found to allow full extension, appropriate collateral ligament tension, appropriate flexion stability, and range of motion. The overall limb alignment was checked, and the mechanical axis was found to fall through the center of the knee. A de- innervation of the patella was then carried out utilizing cautery dissection,and a partial lateral facetectomy was performed. The peripheral osteophytes on the patella were removed with a rongeur. The knee was taken through range of motion, and the patella was found to track centrally. The femoral component lug holes were drilled, and rotation of the tibial component was marked with the cautery. The femoral component was then removed, and final preparation of the tibia commenced. After final preparation of the tibia, the bone surfaces were then prepared with the pulse lavage anddried meticulously. Autogenous bone graft from the femoral resection was placed in the distal femoral intramedullary alignment hole. Two packs of cement mixed with 1.2 g of gentamicin were prepared on the back table. The real tibial component was then cemented into place, and the real posterior-stabilized lugged femoral component was then cemented into place. Excess methyl methacrylate cement was removed. A real 11-mm posterior-stabilized polyethylene insert was impacted into the tibial tray. A local periarticular injection was injected in sequential fashion around the knee. The wound was thoroughly irrigated with normal saline using the pulse lavage. The fascia was closed with interrupted 0 Vicryl sutures. The subcutaneous tissue was closed with interrupted 2-0 Monocryl sutures, and the sk in was closed with a running 3-0 subcuticular Monocryl suture and Prineo. A dry sterile dressing wasapplied to the patient's leg, and the patient was transferred to the postanesthesia recovery unit (PACU) in stable condition. There were no immediate complications. POSTOPERATIVE PLAN The patient will receive 24 hours of perioperative antibiotics with Ancef. VTE prophylaxis will consist of early mobilization, mechanical compressive devices, and twice daily aspirin therapy. The patient will be weight-bearing as tolerated. Specimens * No specimens in log * Drains Indwelling Urinary Catheter Non-latex 16 Fr. (Active) Estimated Blood Loss 20 mL Implants Implant Name Type Inv. Item Serial No. Applied Researcher Lot No. LRB No. Used Action CMNT BN HI VISC PMMA 40 - [id number] Bone Cement CMNT BN HI VISC PMMA 40 [place] Left 1 Implanted CMNT BN HI VISC PMMA 40 - [id number] Bone Cement CMNT BN HI VISC PMMA 40 [place] Left 1 Implanted KN FEM TRT LT CMNT PS SZ-5 - [id number] Knee Implant KN FEM TRT LT CMNT PS SZ-5 [place] [id number] Left 1 Implanted BSPLT TIB TRT RT LT SZ5 - [id number] Knee Implant BSPLT TIB TRT RT LT SZ5 [place] [id number] Left 1 Implanted PEG FIX TRT SS DISTL FEM - [id number] Knee Implant PEG FIX TRT SS DISTL FEM [place] [id number] Left 1 Implanted INS TIB TRT PS X3 5 11 - [id number] Knee Implant INS TIB TRT PS X3 5 11 [place] [id number] Left 1 Implanted Suhas Brown M.D. Brief Op Note - Sneha Moreno P.A.-C., M.S. - 12/09/2017 8:21 AM CDT BRIEF OP NOTE Procedure(s): ARTHROPLASTY REPLACEMENT TOTAL KNEE. (Left) Surgeon(s) and Role: * Suhas Brown M.D. - Primary * Lan Rader M.D. Anesthesia Type: General Pre-Operative Diagnosis: Other Specified Arthritis Left Knee [M13.862]. Brief Operative Note Details Specimens * No specimens in log * Drains Indwelling Urinary Catheter Non-latex 16 Fr. (Active) Estimated Blood Loss Per anesthesia documentation Implants Implant Name Type Inv. Item Serial No. Applied Researcher Lot No. LRB No. Used Action CMNT BN HI VISC PMMA 40 - [id number] Bone Cement CMNT BN HI VISC PMMA 40 [place] Left 1 Implanted CMNT BN HI VISC PMMA 40 - [id number] Bone Cement CMNT BN HI VISC PMMA 40 [place] Left 1 Implanted KN FEM TRT LT CMNT PS SZ-5 - [id number] Knee Implant KN FEM TRT LT CMNT PS SZ-5 [place] [id number] Left 1 Implanted BSPLT TIB TRT RT LT SZ5 - [id number] Knee Implant BSPLT TIB TRT RT LT SZ5 [place] [id number] Left 1 Implanted PEG FIX TRT SS DISTL FEM - [id number] Knee Implant PEG FIX TRT SS DISTL FEM [place] [id number] Left 1 Implanted INS TIB TRT PS X3 5 11 - [id number] Knee Implant INS TIB TRT PS X3 5 11 [place] [id number] Left 1 Implanted Sneha Moreno P.A.-C., M.S. documented in this encounter Plan of Treatment Scheduled Referrals Name Type Priority Associated Order Schedule Diagnoses Orthopedic Surgery Outpatient Referral Routine Arthritis Knee Expected: Post Op (clinic) - 8 with surgeon (Approximate), Expires: 12/09/2020 documented as of this encounter Procedures Procedure Name Priority Date/Time Associated Comments Diagnosis CBC WITHOUT Routine 12/10/2017 4:22 Results for this DIFFERENTIAL, B AM CDT procedure ar e in the results section. ELECTROLYTE (CHEM Routine 12/10/2017 4:21 Results for this 4) PANEL, S/P AM CDT procedure are in the results section. REMOTE OXIMETRY Routine 12/09/2017 12:48 MONITORING CONT. PM CDT DX KNEE LEFT 2 RAD - Routine 12/09/2017 10:08 Results for this VIEWS (most inpatients AM CDT procedure a re in and all the results outpatients) section. ARTHROPLASTY 12/09/2017 7:19 Other Specified REPLACEMENT TOTAL AM CDT Arthritis Left KNEE Knee documented in this encounter Results (ABNORMAL) CBC without Differential (12/10/2017 4:22 AM CDT) [facility] Method Time Signature Hemoglobin 11.6 11.6 - 12/10/2017 [facility] 15.0 g/dL 4:50 AM CDT [facility] - [facility] Hematocrit 36.7 35.5 - 12/10/2017 [facility] 44.9 % 4:50 AM CDT [facility] Erythrocytes 3.99 3.92 - 12/10/2017 [facility] 5.13 4:50 AM CDT LABORATORIES - x10(12)/L [facility] MCV 92.0 78.2 - 12/10/2017 [facility] 97.9 fL 4:50 AM CDT [facility] RBC Distrib 13.4 12.2 - 12/10/2017 [facility] Width 16.1 % 4:50 AM CDT [facility] Platelet Count 212 157 - 371 12/10/2017 [facility] x10(9)/L 4:50 AM CDT [facility] Leukocytes 11.0 (H) 3.4 - 9.6 12/10/2017 [facility] x10(9)/L 4:50 AM CDT [facility] Specimen Anatomical Collection Method Collection Time Receive d Time (Source) Location / / Volume Laterality Blood (Blood, 12/10/2017 4:22 AM 12/11/19 18 4:39 Venous) CDT AM CDT Sneha Moreno P.A.-C., M.S. LAB BLOOD ADD-ON Performing Organization Address City/[facility] Code Phon e Number [facility] - [address] [place], [place] [address] [facility] Electrolyte (Chem 4) Panel (12/10/2017 4:21 AM CDT) P athologist Signature Potassium, P 4.9 3.6 - 5.2 12/10/2017 [facility] mmol/L 4:43 AM CDT [facility] Sodium, P 141 135 - 145 12/10/2017 [facility] mmol/L 4:43 AM CDT [facility] Chloride, P 106 98 - 107 12/10/2017 [facility] mmol/L 4:43 AM CDT [facility] Bicarbonate, P 25 22 - 29 12/10/2017 [facility] mmol/L 4:43 AM CDT [facility] Anion Gap, P 10 7 - 15 12/10/2017 [facility] 4:43 AM CDT [facility] - [facility] Specimen Anatomical Collection Method Collection Time Receive d Time (Source) Location / / Volume Laterality Blood (Blood, 12/10/2017 4:21 AM 12/11/19 18 4:27 Venous) CDT AM CDT Sneha Moreno P.A.-C., M.S. LAB BLOOD ADD-ON Performing Organization Address City/[facility] Code Phon e Number [facility] - [address] [place] [phone] [facility] DX Knee Left 2 Views (12/09/2017 10:08 AM CDT) Anatomical Region Laterality Modality Lower Extremity, Knee, Musculoskeletal RST LOS Left Computed Radiography Specimen (Source) Anatomical Collection Method Collection Time Re ceived Time Location / / Volume Laterality 12/09/2017 10:13 AM CDT Impressions 12/09/2017 10:14 AM CDT IMPRESSION: ??Left TKA. Overlying soft tissue emphysema. Negative for PO purposes. Narrative 12/09/2017 10:14 AM CDT EXAM: ??DX KNEE LEFT 2 VIEWS Procedure Note Ulisses Reis M.D. - 12/09/2017Format ting of this note might be different from the original. EXAM: DX KNEE LEFT 2 VIEWS IMPRESSION: Left TKA. Overlying soft tis kely emphysema. Negative for PO purposes. Sneha Moreno P.A.-C., M.S. IMG DIAGNOSTIC IMAGING MI OCEDURES documented in this encounter Visit Diagnoses Diagnosis Other Specified Arthritis Left Knee - Pr imary Arthritis Knee Difficulty Walking Orthopedic Knee Cause Arthritis Knee Other Specified Arthritis Left Knee documented in this encounter Admitting Diagnoses Diagnosis Other Specified Arthritis Left Knee Arthritis Knee documented in this encounter Administered Medications Inactive Administered Medications - up to 3 most recent administrations Medication Order MAR Action Action Date Dose Rate Site acetaminophen tablet 1,000 mg Given 12/11/2017 2:20 PM CDT 1,000 mg (TYLENOL) 1,000 mg, oral, Every 6 hours, First dose on Wed12/09/17 at 1400 Given 12/11/2017 8:27 AM CDT 1,000 mg Given 12/11/2017 1:58 AM CDT 1,000 mg azelastine 137 mcg/spray (0.1 %) nasal spray Given 8:28 AM CDT 1 spray 1 spray (ASTELIN) 1 spray, each nostril, 2 times daily, First dose on Wed12/10/17 at 0900 Given 12/10/2017 9:36 PM CDT 1 spray Given 12/10/2017 8:34 AM CDT 1 spray calcium carbonate chewable tablet Given 12/10/2017 4:4 0 PM CDT 400 mg of calcium 400 mg of calcium (TUMS) 400 mg of calcium, oral, Every 2 hour PRN, indigestion, Starting on Wed12/09/17 at 1248, Doses listed are in mg of elemental calcium. Take with food. 500 mg calcium carbonate contains 200 mg of elemental calcium. D5W infusion 10-250 mL/hr, intravenous, As needed, Medications Inco mpatible with 0.9% NaCL, Starting on Wed12/10/17 at 2150, Infuse at the same ra te as the piggyback until tubing clears or up to a volume of 20 mL pre and post infusion for medications incompatible with 0.9% NaCL. Use 100 mL bag then disca rd. gentamicin powder 3.6 g (for bone Given 12/09/2017 8:47 AM CDT 2 vials Left Knee cement) 3.6 g (3 vial), miscellaneous, Once, On Milly 12/09/17 at 0715, For 1 dose, Intra-Op, For bone cement - do not reconstitute. HYDROmorphone injection 0.2 mg (DILAUDID ) 0.2 mg, intravenous, Every 4 hours PRN, pain not other martins controlled with oral medicines., Starting on Wed12/10/17 at 2146, For 2 dos es lactated ringers Continued from OR 12/09/2017 9:50 AM CDT 20 mL/hr 20 mL/hr 20 mL/hr, intravenous, Continuous, Starting on Milly 12/09/17 at 0700 New Bag 12/09/2017 7:39 AM CDT levothyroxine tablet 150 mcg (SYNTHROID, Given 12/11/2017 6:42 A M CDT 150 mcg LEVOTHROID) 150 mcg, oral, Daily before breakfast, First dose on Wed12/10/17 at 0700 Given 12/10/2017 6:44 AM CDT 150 mcg loratadine tablet 10 mg (CLARITIN) 10 mg, oral, Daily PRN, allergies, for opioid induced pruritus, Starting on Milly 12/09/17 at 1248, Drug Monitoring Program : Pharmacist to adjust medication dosing based on indication and drug clearance factors. mirtazapine tablet 30 mg (REMERON) Given 12/10/2017 9:35 PM CDT 30 mg 30 mg, oral, Daily at bedtime, First dose on Wed12/10/17 at 2100 NaCl 0.9% infusion Rate/Dose Verify 12/10/2017 12:00 AM 100 mL/hr 100 mL/hr 100 mL/hr, intravenous, CDT Continuous, Starting on Milly 12/09/17 at 1300 New Bag 12/09/2017 11:32 PM CDT 100 mL/hr 100 mL/hr New Bag 12/09/2017 1:59 PM CDT 100 mL/hr 100 mL/hr NaCl 0.9% infusion 10-250 mL/hr, intravenous, As needed, Be tween Consecutive Piggyback Medications, Starting on Wed12/10/17 at 2150, Infuse at the same ra te as the piggyback until tubing clears or up to a volume of 20 mL . Select for IV medication administration when no maintenance IV available or when IV medication s are not compatible with maintenance fluid. NaCl 0.9% infusion 10-250 mL/hr, intravenous, As needed, Post Medications (Hazardous/Low Fluid Volume), Starting on Wed12/10/17 at 2150 , Infuse at the same rate as the medication until tubing cleared of medication, then discard. naloxone injection 0.2 mg (NARCAN) 0.2 mg, intravenous, As needed, respirat ory depression, Starting on Milly 12/09/17 at 1248, For respiratory rate less than 8 b reaths per minute or RASS score of -3, -4, -5. Apply oxygen to keep oxygen saturati ons greater than 90% and notify service. oxybutynin 24 hr tablet 10 mg (DITROPAN- XL) Given 12/11/2017 8:27 AM CDT 10 mg 10 mg, oral, 2 times daily, First dose on Wed12/10/17 at 0900, Swallow whole. Do NOT crush, chew, or split tablet. Given 12/10/2017 9:34 PM CDT 10 mg Given 12/10/2017 8:33 AM CDT 10 mg oxyCODONE IR tablet 10 mg (ROXICODONE) Given 12/11/2017 11:21 AM CDT 10 mg 10 mg, oral, Every 3 hours PRN, severe pain or score 7-10 of 10, Starting on Wed12/10/17 at 1300, Second line therapy. If patient is greater than 7 after 2 hours, call service for new order. Given 12/10/2017 4:40 PM CDT 10 mg Given 12/10/2017 1:32 PM CDT 10 mg oxyCODONE IR tablet 5 mg (ROXICODONE) Given 12/11/2017 8:27 AM CDT 5 mg 5 mg, oral, Every 3 hours PRN, moderate pain or score 4-6 of 10, Starting on Wed12/10/17 at 1300, Second line therapy Given 12/11/2017 4:02 AM CDT 5 mg Given 12/10/2017 10:12 PM CDT [address] tablet 40 mg (PROTONIX) Given 12/11/2017 6:42 AM CDT 40 mg 40 mg, oral, Daily before breakfast, First dose on Wed12/10/17 at 0700, Swallow whole. Do NOT crush, chew, or split tablet. Given 12/10/2017 6:44 AM CDT 40 mg rivaroxaban tablet 10 mg (XARELTO) Given 12/10/2017 4:40 PM CDT 10 mg 10 mg, oral, Daily with dinner, First dose on Wed12/09/17 at 1700, Drug Monitoring Program: Pharmacist to adjust medication dosing based on indication and drug clearance factors. Given 12/09/2017 5:46 PM CDT 10 mg rOPINIRole tablet 1 mg (REQUIP) Given 12/10/2017 9:34 PM CDT 1 mg 1 mg, oral, Daily at bedtime, First dose (after last modification) on Wed12/10/17 at 0000 Given 12/10/2017 12:06 AM CDT 1 mg ropivacaine (PF) 200 mg, EPINEPHrine Given 12/09/2017 8:54 AM CD T 60 mL Left Knee 150 mcg, ketorolac 15 mg in NaCl 0.9% 60 mL injection (ARTHROPLASTY BLOCK 100+ kg) 60 mL, infiltration, Once in surgery, OR use only, Starting on Milly 12/09/17 at 0714, For 1 dose, Intra-Op, *Not for IV use* ropivacaine (PF) 200 mg, EPINEPHrine Given 12/09/2017 8:54 AM CD T 60 mL Left Knee 150 mcg, ketorolac 15 mg in NaCl 0.9% 60 mL injection (ARTHROPLASTY BLOCK 100+ kg) 60 mL, infiltration, Once in surgery, OR use only, Starting on Milly 12/09/17 at 0714, For 1 dose, Intra-Op, *Not for IV use* sennosides-docusate sodium 8.6-50 mg per Given 12/11/2017 8:28 A M CDT 1 tablet tablet 1 tablet (SENOKOT-S) 1 tablet, oral, 2 times daily, First dose on Milly 12/09/17 at 2100, Do not give if patient has diarrhea. Given 12/10/2017 9:34 PM CDT 1 tablet Given 12/10/2017 8:33 AM CDT 1 tablet traMADol tablet 100 mg (ULTRAM) Given 12/10/2017 11:30 AM CDT 100 mg 100 mg, oral, Every 6 hours PRN, moderate pain or score 4-6 of 10, severe pain or score 7-10 of 10, Starting on Milly 12/09/17 at 1248, First line therapy or for pain greater than comfort goal (not to exceed 400 mg in 24 hours)., Drug Monitoring Program: Pharmacist to adjust medication dosing based on indication and drug clearance factors. traMADol tablet 50 mg (ULTRAM) Given 12/11/2017 9:53 AM CDT 50 mg 50 mg, oral, Every 6 hours PRN, mild pain or score 1-3 of 10, Starting on Milly 12/09/17 at 1248, First line therapy, Drug Monitoring Program: Pharmacist to adjust medication dosing based on indication and drug clearance factors. documented in this encounter Active and Recently Administered Medications Times are shown in CDT. Scheduled Medication Order 12/09/2017 12/10/2017 12/11/2017 acetaminophen tablet 1,000 mg (TYLENOL) (COMPLETED) 07 00 (Given - Provider: Josie Jean Baptiste R.N.) 1,000 mg, oral, Once, On Milly 12/09/17 at 0700, For 1 dose, Pre-Op acetaminophen tablet 1,000 mg (TYLENOL) 1302 (Given - Provider: Ulisses Alva R.N.)2032 (Given - Provider: Nicolas Do R.N.) 0206 (Given - Provider: Subha Barraza R.N.)0833 (Given - Provider: Tonja Hobbs R.N.)1332 (Given - Provider: Tonja Hobbs R.N.)2031 (Given - Provider: Marisa Krishnan R.N.) 0158 (Given - Provider: Marisa Mcclain se R.N.)0827 (Given - Provider: Irena Jackman R.N.)1420 (Given - Provider: Irena Jackman R.N.) 1,000 mg, oral, Every 6 hours, First dose on Milly 12/09/17 at 1400 azelastine 137 mcg/spray (0.1 %) nasal spray 1 spray (ASTELI N) 0841 (Given - Provider: Tonja Hobbs R.N.)5710 (Given - Provider: Marisa Krishnan R.N.) 0828 (Given - Provider: Irena Jackman R.N.) 1 spray, each nostril, 2 times daily, First dose on Wed12/10/17 at 0900 ceFAZolin in dextrose (iso-os) IVPB 2 g (ANCEF) (COMPL ETED) 1514 (New Bag - Provider: Ulisses Alva R.N.) 0006 (New Bag - Provider: Subha Barraza RBrayanNBrayan) 2 g, intravenous, at 200 mL/hr, Administ er over 30 Minutes, Every 8 hours, First dose on Milly 12/09/17 at 1600, For 2 doses, Start within 8 hours of last IV dose. premix, Drug Monitoring Program: Pharmaci st to adjust medication dosing based on indication and drug clearance factors., Indications: Prophylaxis, surgical ceFAZolin injection 2 g (ANCEF) (COMPLETED) 814 (Give n - Provider: Dianelys Espinosa RBrayanNBrayan) 2 g, intravenous, Once, On Milly 12/09/17 a t 0715, For 1 dose, Intra-Op, Preoperatively within 1 hour prior to surgical incision [place]minster IV push over 3 minutes. Add 5 mL NS to 1 gram vial for a final con centration of 200 mg/mL., Drug Monitorin g Program: Pharmacist to adjust medication order based on comorbities and indication., Indications: Prophylaxis, surgical celecoxib capsule 400 mg (CeleBREX) (COMPLETED) 0700 ( Given - Provider: Josie Jean Baptiste R.N.) 400 mg, oral, Once, On Milly 12/09/17 at 0700, For 1 dose, Pre-Op gentamicin powder 3.6 g (for bone cement) (COMPLETED) 714 (Due)0847 (Given - Provider: Suhas Copeland M.D. - Comment: bone cement) 3.6 g (3 vial), miscellaneous, Once, On Milly 12/09/17 at 0715, For 1 dose, Intra- Op, For bone cement - do not reconstitute. levothyroxine tablet 150 mcg (SYNTHROID, LEVOTHROID) 0644 (Given - Provider: Subha Barraza RBrayanN.) 0642 (Given - Provider: Marisa Mcclain se RBrayanNBrayan) 150 mcg, oral, Daily before breakfast, First dose on Wed12/10/17 at 0700 mirtazapine tablet 30 mg (REMERON) 2134 (Given - Provider: Marisa Krishnan R.NBrayan) 30 mg, oral, Daily at bedtime, First dose on Wed12/10/17 at 2100 oxybutynin 24 hr tablet 10 mg (DITROPAN-XL) 0833 (Given - Provider: Tonja Hobbs RBrayanNBrayan)2133 (Given - Provider: Marisa Krishnan RBrayanNBrayan) 08 (Given - Provider: Irena Jackman RBrayanNBrayan) 10 mg, oral, 2 times daily, First dose o n Wed12/10/17 at 0900, Swallow whole. Do NOT crush, chew, or split tablet. oxyCODONE IR tablet 5 mg (ROXICODONE) (COMPLETED) 0700 (Given - Provider: Josie Jean Baptiste RBrayanNBrayan) 5 mg, oral, Once, On Wed12/09/17 at 0700, For 1 dose, Pre-Op pantoprazole DR tablet 40 mg (PROTONIX) 0644 (Given - Provider: Subha Barraza R.N.) 0642 (Given - Provider: Marisa Mcclain se R.NBrayan) 40 mg, oral, Daily before breakfast, Fir st dose on Wed12/10/17 at 0700, Swallow whole. Do NOT crush, chew, or split tablet. rivaroxaban tablet 10 mg (XARELTO) 1746 (Given - Provider: Marcial Alva RBrayanNBrayan) 1640 (Given - Provider: Ulisses Alva RIris) 10 mg, oral, Daily with dinner, First do se on Wed12/09/17 at 1700, Drug Monitoring Program: Pharmacist to adjust medication dosing based on indication and drug clearance factors. rOPINIRole tablet 1 mg (REQUIP) 0006 (Gi timbo - Provider: Subha Barraza RBrayanN.)2133 (Given - Provider: Marisa Krishnan RBrayanNBrayan) 1 mg, oral, Daily at bedtime, First dose (after last modification) on Wed12/10/17 at 0000 sennosides-docusate sodium 8.6-50 mg per tablet 1 tabl et (SENOKOT-S) 2031 (Given - Provider: Nicolas Do RBrayanN.) 0833 (Given - Provider: Tonja Hobbs RBrayanN.)2133 (Given - Provider: Marisa Krishnan RBrayanN.) 08 (Given - Provider: Irena Jackman RBrayanNBrayan) 1 tablet, oral, 2 times daily, First dos e on Milly 12/09/17 at 2100, Do not give if patient has diarrhea. tranexamic acid in NaCl 0.9% IVPB 1 g (CYKLOKAPRON) (C OMPLETED) 0816 (Given - Provider: Dianelys Espinosa R.N.)0923 (Anesthesia Volume Adjustment - Provider: Dianelys Espinosa R.N.) 1 g, intravenous, at 180 mL/hr, Administ er over 20 Minutes, Once, On Milly 12/09/17 at 0700, For 1 dose, Pre-Op, Administer in OR upon induction premix bag, Drug Monitoring Program: Pharmacist to adjust me dication order based on comorbities and indication. tranexamic acid in NaCl 0.9% IVPB 1 g (CYKLOKAPRON) (C OMPLETED) 0856 (Given - Provider: Kavin Ingram APRN, FASHION SUPERVISOR)0923 (Anesthesia Volume Adjustment - Provider: Dianelys Espinosa R.N.) 1 g, intravenous, at 180 mL/hr, Administ er over 20 Minutes, Once, On Milly 12/09/17 at 0700, For 1 dose, Pre-Op, Administer in OR just before dropping tourniquet premix bag, Drug Monitoring Program: Pharma cist to adjust medication order based on comorbities and indicat ion. Continuous Medication Order 12/09/2017 12/10/2017 12/11/2017 lactated ringers 0739 (New Bag - Provider: Marlene Espinosa R.N.)0830 (Anesthesia Volume Adjustment - Provider: Dianelys Espinosa R.N.)0923 (Anesthesia Volume Adjustment - Provider: Dianelys Espinosa R.N.)0950 (Continued from OR - Provider: Isamar Neville R.N.) 20 mL/hr, intravenous, Continuous, Starting on Wed12/09/17 at 07 00 NaCl 0.9% infusion 1359 (New Bag - Provider: Lena Alva R.N.)2332 (New Bag - Provider: Nicolas Do R.N.) 0000 (Rate/Dose Verify - Provider: Isaias Barraza R.N.)0838 (Stopped - Provider: Tonja Hobbs R.N.) 100 mL/hr, intravenous, Continuous, Starting on Wed12/09/17 at 1 300 PRN Medication Order 12/09/2017 12/10/2017 12/11/2017 albuterol 90 mcg/actuation inhaler 2 puff (PROVENTIL HFA,VENTOLI N HFA) 2 puff, inhalation, Every 4 hours PRN, w heezing, shortness of breath, Starting Wed12/09/17 at 2129 calcium carbonate chewable tablet 400 mg of calcium (TUMS) 1640 (Given - Provider: Ulisses Alva R.N.) 400 mg of calcium, oral, Every 2 hour MI N, indigestion, Starting on Wed12/09/17 at 1248, Doses listed are in mg of elemental calcium. Take with food. 500 mg calcium carbonate contains 200 mg of elemental calcium. D5W infusion 10-250 mL/hr, intravenous, As needed, Me dications Incompatible with 0.9% NaCL, Starting on Wed12/10/17 at 2150, Infuse at the same rate as the piggyback until tubing clears or up to a volume of 20 mL pr e and post infusion for medications inco mpatible with 0.9% NaCL. Use 100 mL bag then discard. fentaNYL injection 25 mcg (SUBLIMAZE) (CANCELED) 1009 (Given - Provider: Isamar Neville R.N.)1016 (Given - Provider: Isamar Neville R.N.)1021 (Given - Provider: Isamar L Schleusner, R.N.) 25 mcg, intravenous, Every 2 min PRN, mo derate pain or score 4-6 of 10, severe pain or score 7-10 of 10, Starting on Wed12/09/17 at 0955, PACU (only), Up to maximum total dose of 200 mcg HYDROmorphone injection 0.2 mg (DILAUDID) 0.2 mg, intravenous, Every 4 hours PRN, pain not otherwise controlled with oral medicines., Starting on Wed12/10/17 at 2146, For 2 doses loratadine tablet 10 mg (CLARITIN) 10 mg, oral, Daily PRN, allergies, for o pioid induced pruritus, Starting on Wed12/09/17 at 1248, Drug Monitoring Program: Pharmacist to adjust medication dosing based on indication and drug clearance factors. NaCl 0.9% infusion 10-250 mL/hr, intravenous, As needed, Be tween Consecutive Piggyback Medications, Starting on Wed12/10/17 at 2150, Infuse at the same rate as the piggyback until tubing clears or up to a volume of 20 mL. Select for IV medication administration when no maintenance IV available or when IV medications are not compatible with maintenance fluid. NaCl 0.9% infusion 10-250 mL/hr, intravenous, As needed, Po st Medications (Hazardous/Low Fluid Volume), Starting on Wed12/10/17 at 2150, Infuse at the same rate as the medication until tubing cleared of medication, then discard. naloxone injection 0.2 mg (NARCAN) 0.2 mg, intravenous, As needed, respirat ory depression, Starting on Wed12/09/17 at 1248, For respiratory rate less than 8 breaths per minute or RASS score of - 3, -4, -5. Apply oxygen to keep oxygen saturations greater than 90% and notify service. ondansetron (PF) injection 4 mg (ZOFRAN) 181 (Given - Provider: Ulisses Alva R.N.) 4 mg, intravenous, Every 6 hours PRN, na usea, vomiting, Starting on Wed12/09/17 at 1248, For 48 hours, Reassess for nausea or vomiting after at least 10 minutes. If nausea or vomiting persists administe r next ordered antiemetic medications (o rder for antiemetic medication administration ondansetron then droperidol then promethazine). oxyCODONE IR tablet 10 mg (ROXICODONE)(Linked Group 1) 1332 (Given - Provider: Tonja Hobbs R.N.)1640 (Given - Provider: Ulisses Alva R.N.)2212 (See Alternative - Provider: Marisa Krishnan R.N.) 0402 (See Alternative - Provider: Marisa Krishnan R.N.)0827 (See Alternative - Provider: Irena Jackman R.N.)1121 (Given - Provider: Irena Jackman R.N. - Comment: pain increases with activity) 10 mg, oral, Every 3 hours PRN, severe p ain or score 7-10 of 10, Starting on Wed12/10/17 at 1300, Second line therapy. If patient is greater than 7 after 2 hours, call service for new order. oxyCODONE IR tablet 5 mg (ROXICODONE) (COMPLETED) 1007 (Given - Provider: Isamar Neville RIris) 5 mg, oral, Once as needed, moderate bella n or score 4-6 of 10, severe pain or score 7-10 of 10, Starting on Milly 12/09/17 at 0955, For 1 dose, PACU (only), Prior to discharge oxyCODONE IR tablet 5 mg (ROXICODONE) 1302 (Given - Pr ovider: Ulisses Alva R.N.)1746 (Given - Provider: Ulisses Alva R.N.)2239 (Given - Provider: Nicolas Do RBrayanNBrayan) 0516 (Given - Provider: Elsie romeo RBrayanNBrayan)1030 (Given - Provider: Tonja Hobbs RBrayanNBrayan) 5 mg, oral, Every 4 hours PRN, moderate pain or score 4-6 of 10, Starting on Wed12/09/17 at 1248, Second line therapy oxyCODONE IR tablet 5 mg (ROXICODONE)(Linked Group 1) 1332 (See Alternative - Provider: Tonja Hobbs R.N.)1640 (See Alternative - Provider: Ulisses Alva R.N.)2212 (Given - Provider: Marisa Krishnan R.N.) 0402 (Given - Provider: Marisa Krishnan R.N.)0827 (Given - Provider: Irena Jackman R.N. - Comment: pain increases with activity)1121 (See Alternative - Provider: Irena Jackman R.N.) 5 mg, oral, Every 3 hours PRN, moderate pain or score 4-6 of 10, Starting on Wed12/10/17 at 1300, Second line therapy promethazine injection 6.25 mg (PHENERGAN) 2157 (Given - Provider: Marisa Krishnan R.N.) 6.25 mg, intravenous, Every 6 hours PRN, nausea, vomiting, Starting on Milly 12/09/17 at 1248, For 48 hours, RASS must be -2 or higher to administer. Reassess for nausea/vomiting after at least 10 minutes. If nausea or vomiting persists administ er next ordered antiemetic medications (order for antiemetic medication administration ondansetron then droperidol then promethazine). ropivacaine (PF) 200 mg, EPINEPHrine 150 mcg, ketorolac 15 mg in NaCl 0.9% 60 mL injection (ARTHROPLASTY BLOCK 100+ kg) (COMPLETED) 0854 (Given - Provider: Suhas Copeland M.D.) 60 mL, infiltration, Once in surgery, OR use only, Starting on Milly 12/09/17 at 0714, For 1 dose, Intra-Op, *Not for IV use* ropivacaine (PF) 200 mg, EPINEPHrine 150 mcg, ketorolac 15 mg in NaCl 0.9% 60 mL injection (ARTHROPLASTY BLOCK 100+ kg) (COMPLETED) 0854 (Given - Provider: Suhas Copeland M.D.) 60 mL, infiltration, Once in surgery, OR use only, Starting on Milly 12/09/17 at 0714, For 1 dose, Intra-Op, *Not for IV use* traMADol tablet 100 mg (ULTRAM)(Linked Group 2) 1127 (See Alternative - Provider: Tonja Hobbs R.N.)1130 (Given - Provider: Tonja Hobbs R.N.) 0953 (See Alternative - Provider: Indra Montgomery, R.N.) 100 mg, oral, Every 6 hours PRN, moderat e pain or score 4-6 of 10, severe pain or score 7-10 of 10, Starting on Milly 12/09/17 at 1248, First line therapy or for pain greater than comfort goal (not to exce ed 400 mg in 24 hours)., Drug Monitoring Program: Pharmacist to adjust medication dosing based on indication and drug clearance factors. traMADol tablet 50 mg (ULTRAM)(Linked Group 2) 1127 (Canceled Entry - Provider: Tonja Hobbs R.N. - Comment: 100mg given instead)1130 (See Alternative - Provider: Tonja Hobbs R.N.) 0953 (Given - Provider: Marcial Montgomery, R.NBrayan) 50 mg, oral, Every 6 hours PRN, mild bella n or score 1-3 of 10, Starting on Milly 12/09/17 at 1248, First line therapy, Drug Monitoring Program: Pharmacist to adjust medication dosing based on indication and drug clearance factors. Linked Groups Order Group 1: oxyCODONE IR tablet 5 mg (ROXICODONE)Jump to med 5 mg, oral, Every 3 hours PRN, moderate pain or score 4-6 of 10, Starting on Wed12/10/17 at 1300
Second line therapy
Or oxyCODONE IR tablet 10 mg (ROXICODONE)Jump to med 10 mg, oral, Every 3 hours PRN, severe p ain or score 7-10 of 10, Starting on Wed12/10/17 at 1300
Second line therapy. If patient is greater than 7 after 2 hours, call service for new order.
Group 2: traMADol tablet 50 mg (ULTRAM)Jump to med 50 mg, oral, Every 6 hours PRN, mild bella n or score 1-3 of 10, Starting on Milly 12/09/17 at 1248
First line therapy
Drug Monitoring Program: Pharmacist to adjust medication dosing based on indication and drug clearance factors. Or traMADol tablet 100 mg (ULTRAM)Jump to med 100 mg, oral, Every 6 hours PRN, moderat e pain or score 4-6 of 10, severe pain or score 7-10 of 10, Starting on Milly 12/09/17 at 1248
First line therapy or for pain greater than comfort goal (not to exceed 400 mg in 24 hours).
Drug Monitoring Program: Pharmacist to adjust medication dosing based on indication and drug clearance factors. documented in this encounter
--- OUTSIDE RECORDS SUMMARY | 2022-02-13 12:14 | XMS_ITS | Encounter Summary ---
:1950 Author Organization [facility] Address [address] [place] [address] Care Team Providers Name Role Phone Unavailable Primary Care Provider Unavailable Reason for Referral Physical Therapy (Routine) - Closed Specialty Diagnoses / Procedures Referred By Contact Refer red To Contact Diagnoses Pain Total Hip Arthroplasty Subsequent Pain Total Knee Arthroplasty Initial (HCC) Reed Treviño M.D. Referral ID Status Reason Start Date Expiration Date Visits Requ ested Visits Authorized [id number] Closed Other 04/17/2019 04/16/2020 1 1 NEER SOILS Reason for Visit Appointment Request (Routine) - Closed Specialty Diagnoses / Procedures Referred By Contact Refer red To Contact Orthopedic Surgery Referral ID Status Reason Start Date Expiration Date Visits Requ ested Visits Authorized [id number] Closed 03/31/2019 03/30/2020 1 Encounter Details Date Type Department Care Team Description 04/17/2019 Office Visit Department of Suhas Brown I., Pain Total Hip Arthroplasty Subsequent (Primary Dx); Orthopedic Surgery in [place] Pain Total Knee Arthroplasty Initial (HC C) [place], [place] [address] [facility] [address] [place] [id number] [phone] Social History Tobacco Use Types Packs/Day Years [...] or relatives? How often do you attend gnosticist or scientologist More than 4 time s per year 10/07/2020 services? 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 - 04/17/2019 9:15 AM CST HISTORY OF PRESENT ILLNESS Patient returns today almost 2 and half years out from left total knee, and sustained a fall this past fall and has had some increased pain over the anterior aspect of her knee since that time. She hasbeen improving since then but wanted to ensure that she'd not done something sinister the knee. Of note she has had previous left hip surgery with Dr. Ni. PHYSICAL EXAMINATION Musculoskeletal: Left knee has great range of motion from 0 to 125 degrees. No evidence of varus, valgus, or AP instability. Gait: Ambulates with a modest Trendelenburg limp. Knee sheet filled out. IMPRESSION/REPORT/PLAN IMAGING STUDIES X-rays of the left TKA look great. No evidence of loosening or wear. Alignment is satisfactory. Her right knee also looks well-fixed well-aligned. IMPRESSION 1. Satisfactory recheck status post left total knee arthroplasty I suspect this was just a minor setback from her fall and I'm happy to hear that she continues to improve. I do think she might benefit from some targeted physical therapy working on some hip abductionstrengthening and gait retraining exercises and also some iontophoresis for pain relieving modalities around the hip and knee. I would like to see the patient back according to our total joint registryfollow up. We had a good discussion regarding ongoing care, activity recommendations, and follow-up.All questions were answered. NEER SOILS documented in this encounter Plan of Treatment Scheduled Referrals Name Type Priority Associated Diagnoses Order S hayden PT [facility] Outpatient Referral Routine Pain Total Hip Expect ed: referral Arthroplasty 04/17/2019 Subsequent (Approximate), Pain Total Knee Expires: Arthroplasty Initial 023 (HCC) documented as of this encounter Visit Diagnoses Diagnosis Pain Total Hip Arthroplasty Subsequent - Primary Pain Total Knee Arthroplasty Initial (HC C) documented in this encounter
--- OUTSIDE RECORDS SUMMARY | 2022-02-13 12:14 | XMS_ITS | Encounter Summary ---
:1950 Author Organization [facility] Address [address] [place] [address] Care Team Providers Name Role Phone Unavailable Primary Care Provider Unavailable Encounter Details Date Type Department Care Team Description 02/09/2018 Orders Only Department of Sneha Moreno, Aftercare Total Hip Orthopedic Surgery in P.[place].-Betsey., M .S. 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 Left ELSY without findings of loosening. Dense material presumably projected within the bowel which can be seen with oral contrast versus other ingested material. Please correlate with patient's history. ?? 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 - 03/15/2018Forma tting of this note might be different from the original. EXAM: DX HIP LEFT 2-3 VIEWS IMPRESSION: Demineralization. Left ELSY w ithout findings of loosening. Dense material presumably projected within the bowel which can be seen with oral contrast versus other ingested material. Please correlate with patient's history. Sneha Moreno P.A.-C., M.S. IMG DIAGNOSTIC IMAGING SC OCEDURES documented in this encounter Visit Diagnoses Diagnosis Aftercare Total Hip Arthroplasty - Prima ry Aftercare Total Hip Arthroplasty documented in this encounter
--- OUTSIDE RECORDS SUMMARY | 2022-02-13 12:14 | XMS_ITS | Encounter Summary ---
:1950 Author Organization [facility] Address [address] [place] [address] Care Team Providers Name Role Phone Unavailable Primary Care Provider Unavailable Encounter Details Date Type Department Care Team Description 01/26/2018 Orders Only Department of Orthopedic Sneha Moreno, [facility] [place] [place] [facility] [address] [facility] [address] [place] [phone] (Wo rk) Social History Tobacco Use Types [...] or relatives? How often do you attend spiritism or church More than 4 time s per year 10/07/2020 services? Do you belong to any clubs or organizations No 10/07/2020 such as spiritism groups, unions, fraternal or athletic groups, or [...] or slept in a custodial (including now)? 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
--- OUTSIDE RECORDS SUMMARY | 2022-02-13 12:14 | XMS_ITS | Encounter Summary ---
:1950 Author Organization [facility] Address [address] [place] [address] Care Team Providers Name Role Phone Unavailable Primary Care Provider Unavailable Reason for Visit Reason Onset Date Comments Dental antibiotic 06/29/2018 Appt in morning Encounter Details Date Type Department Care Team Description 06/29/2018 Clinical Communication Department of Suhas Brown antibiotic Orthopedic Surgery Guilherme Baker (Appt in morning) in [address] [place] [id number] [place], [place] [phone] (Work) [phone] Social History Tobacco Use Types Packs/Day Years [...] How often do you attend denominational or synagogue More than 4 time s per year [...] or slept in a usp (including now)? 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 Telephone Encounter - Sneha Moreno P.A.-C., M.S. - 06/29/2018 11:12 AM CDT Will print off prescription to be faxed Telephone Encounter - Nory Cunha - 06/29/2018 10:14 AM CDT Knee surgery in November. Patient is having new crown placed tomorrow morning. Needs dental antibiotic sent to [address] [place] / documented in this encounter Plan of Treatment Not on filedocumented as of this encounter Visit Diagnoses Not on filedocumented in this encounter
--- OUTSIDE RECORDS SUMMARY | 2022-02-13 12:14 | XMS_ITS | Encounter Summary ---
:1950 Author Organization [facility] Address [address] [place] [address] Care Team Providers Name Role Phone Unavailable Primary Care Provider Unavailable Reason for Referral Outpatient (Routine) - Closed Specialty Diagnoses / Procedures Referred By Contact Refer red To Contact Orthopedic Surgery Diagnoses Arthritis Knee Suhas Brown M.D. [facility] [address] [place] [phone] Referral ID Status Reason Start Date Expiration Date Visits Requ ested Visits Authorized [id number] Closed 12/09/2017 12/09/2018 1 1 Scheduling Instructions Ordered images/tests are associated with this appointment. Reason for Visit Auth/Cert Specialty Diagnoses / Procedures Referred By Contact Refer red To Contact Diagnoses Other Specified Arthritis Left Knee Procedures [place] ARTHRO KNEE CONDYLE&PLAT (TKA) ARTHROPLASTY REPLACEMENT TOTAL KNEE Referral ID Status Reason Start Date Expiration Date Visits Requ ested Visits Authorized [id number] 1 1 Encounter Details Date Type Department Care Team Description 12/09/2017 - Hospital Encounter [facility] Suhas Brown Arthritis Knee (Primary Dx); 12/11/2017 Hospital, Don Baker M.D. Difficulty Walking Orthopedic Knee Cause [facility] [address] [facility], [place], [place] Floor [address] [phone] [place], [place] (Work) [phone] Social History Tobacco Use [...] How often do you attend gnosticist or amish More than 4 time s per year [...] or slept in a retirement (including now)? 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 Suhas Brown [...] (ZOCOR) 20 Take 1 tablet by 0 07/16/2 016 mg tablet mouth at bedtime. albuterol (PROVENTIL Inhale 2 puffs as 0 06/30/19 15 HFA,VENTOLIN HFA) 90 needed for shortness mcg/actuation inhaler of breath. vmwfnuw-snmnogjleifip-hi Take 1 tablet by 0 07/09/2020 ffeine [...] this encounter Progress Notes Dior Arias P.T., Shruthi.P.T. - 12/11/2017 11:33 AM CDT Physical Therapy [...] min Functional G-code Worksheet Dior Arias P.T., D.P.T. Lan Rader M.D. - 12/11/2017 8:45 AM [...] Case IDs Date Procedure Surgeon Location Status [id number] 12/09/17 ARTHROPLASTY REPLACEMENT TOTAL KNEE. Suhas Brown M.D. [facility] OR Comp on 12/09/2017. Doing well. Plan: Weightbearing: WBAT DVT ppx: Artem, SCDs, early mobilization Cultures: None Antibiotics: Perioperative antibiotic x 24 hrs. Diet: General diet Pain control: Multimodal with tylenol, tramadol, oxycodone. Perioperative intraarticular injection, toradol Drains: None Labs: no AM labs Consults: PT Incentive spirometry Disposition: Home today pending therapy Lan Rader MD Lower Extremity Reconstruction Fellow Collins Jerry P.T., D.P.T. - 12/10/2017 9:10 AM CDT Physical Therapy [facility] Inpatient Progress Note SUBJECTIVE Patient's Name: [...] exercise program from [facility] [id number] with addition of towel exercise for flexion/extension [...] % Basic Mobility CMS Modifier: FADI Jerry P.T., D.P.T. Lan Rader M.D. - 12/10/2017 7:57 [...] Case IDs Date Procedure Surgeon Location Status [id number] 12/09/17 ARTHROPLASTY REPLACEMENT TOTAL KNEE. Suhas Brown [...] Tradition: Mrs. Caba is affiliated with the [employer]. She did not express anyspiritual needs at this time. Plan: No plan to follow up at this time. A microbiology lab analyst can be contacted by paging [phone] ([facility]). documented in this encounter H&P Notes Lan Rader M.D. - 12/09/2017 7:20 AM CDT INTERVAL HISTORY AND PHYSICAL PRE-PROCEDURE UPDATE H&P reviewed. The patient was examined and there are no significant changes to the H&P. Lan Rader M.D. Source Note - Anika Rolon P.A.-C., M.S. - 12/08/2017 1:00 PM CDT SUBJECTIVE Referring Provider: Sneha Moreno P.A.-C., M.S. Chief Complaint/Reason for Visit Sheree procedural anticoagulation recommendations History of Present Illness Ms. Mindi Caba is a very pleasant 67 y.o. female who presents to the [facility] for sheree procedural anticoagulation recommendations. Patient's medical history significant for lefthip and right knee replacements, osteoarthritis, obesity, sleep apnea, GERD, and hypothyroidism. Patient will be undergoing left knee replacement tomorrow, December 09. Mrs. Caba underwent left hip arthroplasty in 2016. She developed hip dislocation 8 days postoperatively. [...] had to have occasional dose adjustment. In 2015 the patient had her 1st episode of [...] this encounter Consult Notes Collins Jerry P.T., BhargaviPAriana - 12/09/2017 3:[address] [facility] Inpatient Evaluation/Treatment SUBJECTIVE Patient's Name: Mindi Caba Reason for Referral: left total knee arthroplasty, weight bearing as tolerated. Medical Diagnosis: 1. Arthritis Knee 2. Difficulty Walking Orthopedic Knee Cause Onset Date: 12/09/17 Payor: [employer] / Plan: To8to / Product Type: Cost Share / Pertinent [...] TOTAL KNEE.; Surgeon: Suhas Brown M.D.; Location: [facility] OR ??? ARTHROSCOPY KNEE Left [...] Prior Function / Occupational Profile Level of [place]: Independent with ADLs and functional transfers, Independent [...] exercise program from [facility] [id number] with addition of towel exercise for flexion/extensionrange [...] oxycodone, senna, and tramadol were filled at [facility] pharmacy. Education was discussed with patient and [...] was able to rest peacefully last night uSbha Barraza R.N. 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 Identify possible barriers to meeting goals/advancing plan [...] total knee arthroplasty with tourniquet CPT code: 88694 INDICATION Knee pain. PREOP DIAGNOSIS End-stage degenerative [...] the frontal plane and in line with walk[place] tibial slope. The tibia was sized and [...] Implant Name Type Inv. Item Serial No. Banana Expert Lot No. LRB No. Used Action CMNT BN HI VISC PMMA 40 - [id number] Bone Cement CMNT BN HI VISC PMMA 40 Kailey Left 1 Implanted CMNT BN HI VISC PMMA 40 - [id number] Bone Cement CMNT BN HI VISC PMMA 40 Kailey Left 1 Implanted KN FEM TRT LT CMNT PS SZ-5 - [id number] Knee Implant KN FEM TRT LT CMNT PS SZ-5 Kailey [id number] Left 1 Implanted BSPLT TIB TRT RT LT SZ5 - [id number] Knee Implant BSPLT TIB TRT RT LT SZ5 Kailey [id number] Left 1 Implanted PEG FIX TRT SS DISTL FEM - [id number] Knee Implant PEG FIX TRT SS DISTL FEM [place] [id number] Left 1 Implanted INS TIB TRT PS X3 5 11 - [id number] Knee Implant INS TIB TRT PS X3 5 11 Kailey [id number] Left 1 Implanted Suhas Brown M.D. Brief [...] Implant Name Type Inv. Item Serial No. Banana Expert Lot No. LRB No. Used Action CMNT BN HI VISC PMMA 40 - [id number] Bone Cement CMNT BN HI VISC PMMA 40 Kailey Left 1 Implanted CMNT BN HI VISC PMMA 40 - [id number] Bone Cement CMNT BN HI VISC PMMA 40 [place] Left 1 Implanted KN FEM TRT LT CMNT PS SZ-5 - [id number] Knee Implant KN FEM TRT LT CMNT PS SZ-5 [place] [id number] Left 1 Implanted BSPLT TIB TRT RT LT SZ5 - [id number] Knee Implant BSPLT TIB TRT RT LT SZ5 [place] [id number] Left 1 Implanted PEG FIX TRT SS DISTL FEM - [id number] Knee Implant PEG FIX TRT SS DISTL FEM [place] [id number] Left 1 Implanted INS TIB TRT PS X3 5 11 - [id number] Knee Implant INS TIB TRT PS X3 5 11 Kailey [id number] Left 1 Implanted Sneha Moreno P.A.-C., M.S. [...] CBC without Differential (12/10/2017 4:22 AM CDT) [facility] Method Time Signature Hemoglobin 11.6 11.6 - 12/10/2017 [facility] 15.0 g/dL 4:50 AM CDT [facility] - [facility] Hematocrit 36.7 35.5 - 12/10/2017 [facility] 44.9 % 4:50 AM CDT [facility] Erythrocytes 3.99 3.92 - 12/10/2017 [facility] 5.13 4:50 AM CDT LABORATORIES - x10(12)/L [facility] MCV 92.0 78.2 - 12/10/2017 [facility] 97.9 fL 4:50 AM CDT [facility] RBC Distrib 13.4 12.2 - 12/10/2017 [facility] Width 16.1 % 4:50 AM CDT [facility] Platelet Count 212 157 - 371 12/10/2017 [facility] x10(9)/L 4:50 AM CDT [facility] Leukocytes 11.0 (H) 3.4 - 9.6 12/10/2017 [facility] x10(9)/L 4:50 AM CDT [facility] Specimen Anatomical Collection Method Collection Time Receive d Time (Source) Location / / Volume Laterality Blood (Blood, 12/10/2017 4:22 AM 12/11/19 18 4:39 Venous) CDT AM CDT Sneha Moreno P.A.-C., M.S. LAB BLOOD ADD-ON Performing Organization Address City/State/ZIP Code Phon e Number [facility] - [address] [id number] [facility] Electrolyte (Chem 4) Panel (12/10/2017 4:21 AM CDT) P athologist Signature Potassium, P 4.9 3.6 - 5.2 12/10/2017 [facility] mmol/L 4:43 AM CDT [facility] Sodium, P 141 135 - 145 12/10/2017 [facility] mmol/L 4:43 AM CDT [facility] Chloride, P 106 98 - 107 12/10/2017 [facility] mmol/L 4:43 AM CDT [facility] Bicarbonate, P 25 22 - 29 12/10/2017 [facility] mmol/L 4:43 AM CDT [facility] Anion Gap, P 10 7 - 15 12/10/2017 [facility] 4:43 AM CDT [facility] Specimen Anatomical Collection Method Collection Time Receive d Time (Source) Location / / Volume Laterality Blood (Blood, 12/10/2017 4:21 AM 12/11/19 4:27 Venous) CDT AM CDT Sneha Moreno P.A.-C., M.S. LAB BLOOD ADD-ON Performing Organization Address City/State/ZIP Code Phon e Number [facility] - [address] [place], [place] [address] [facility] DX Knee Left 2 Views (12/09/2017 10:08 [...] Sneha Moreno P.A.-C., M.S. IMG DIAGNOSTIC IMAGING [place] OCEDURES documented in this encounter Visit Diagnoses Diagnosis Other Specified Arthritis Left Knee - Pr imary Arthritis Knee Difficulty Walking Orthopedic Knee Cause Arthritis Knee documented in this encounter Admitting Diagnoses Diagnosis Other Specified Arthritis Left Knee Arthritis Knee documented in this encounter Administered Medications Inactive Administered Medications - up to 3 most recent administrations Medication Order MAR Action Action Date Dose Rate Site acetaminophen tablet 1,000 mg Given 12/09/2017 7:00 AM CDT 1,000 mg (TYLENOL) 1,000 mg, oral, Once, On Milly 12/09/17 at 0700, For 1 dose, Pre-Op acetaminophen tablet 1,000 mg (TYLENOL) Given 12/11/2017 2:20 PM CDT 1,000 mg 1,000 mg, oral, Every 6 hours, First dose on Milly 12/09/17 at 1400 Given 12/11/2017 8:27 AM CDT [...] Every 2 hour PRN, indigestion, Starting on Milly 12/09/17 at 1248, Doses listed are in mg of elemental calcium. Take with food. 500 mg calcium carbonate contains 200 mg of elemental calcium. ceFAZolin in dextrose (iso-os) IVPB 2 New Bag 12/10/2017 12:06 AM CDT 2 g 200 mL/hr g (ANCEF) 2 g, intravenous, at 200 mL/hr, Administer over 30 Minutes, Every 8 hours, First dose on Wed12/09/17 at 1600, For 2 doses, Start within 8 hours of last IV dose. premix, Drug Monitoring Program: Pharmacist to adjust medication dosing based on indication and drug clearance factors., Indications: Prophylaxis, surgical New Bag 12/09/2017 3:14 PM CDT 2 g 200 mL/hr celecoxib capsule 400 mg (CeleBREX) Given 12/09/2017 7:00 AM CDT 400 mg 400 mg, oral, Once, On Wed12/09/17 at 0700, For 1 dose, Pre-Op D5W infusion 10-250 mL/hr, intravenous, As needed, Medications Inco mpatible with 0.9% NaCL, Starting on Wed12/10/17 at 2150, Infuse at the same ra te as the piggyback until tubing clears or up to a volume of 20 mL pre and post infusion for medications incompatible with 0.9% NaCL. Use 100 mL bag then disca rd. fentaNYL injection 25 mcg (SUBLIMAZE) Given 12/09/2017 10:21 AM CDT 25 mcg 25 mcg, intravenous, Every 2 min PRN, moderate pain or score 4-6 of 10, severe pain or score 7-10 of 10, Starting on Milly 9/13/18 at 0955, PACU (only), Up to maximum total dose of 200 mcg Given 12/09/2017 10:16 AM CDT 25 mcg Given 12/09/2017 10:09 AM CDT 25 mcg HYDROmorphone injection 0.2 mg (DILAUDID ) 0.2 mg, intravenous, Every 4 hours PRN, pain not other martins controlled with oral medicines., Starting on Wed12/10/17 at 2146, For 2 dos es lactated ringers Continued from OR 12/09/2017 9:50 AM CDT 20 mL/hr 20 mL/hr 20 mL/hr, intravenous, Continuous, Starting on Wed12/09/17 at 0700 New Bag 12/09/2017 7:39 AM CDT levothyroxine tablet 150 mcg (SYNTHROID, Given 12/11/2017 6:42 A M CDT 150 mcg LEVOTHROID) 150 mcg, oral, Daily before breakfast, First dose on Wed12/10/17 at 0700 Given 12/10/2017 6:44 AM CDT 150 mcg loratadine tablet 10 mg (CLARITIN) 10 mg, oral, Daily PRN, allergies, for opioid induced pruritus, Starting on Wed12/09/17 at 1248, Drug Monitoring Program : Pharmacist to adjust medication dosing based on indication and drug clearance factors. mirtazapine tablet 30 mg (REMERON) Given 12/10/2017 9:35 PM CDT 30 mg 30 mg, oral, Daily at bedtime, First dose on Wed12/10/17 at 2100 NaCl 0.9% infusion Rate/Dose Verify 12/10/2017 12:00 AM 100 mL/hr 100 mL/hr 100 mL/hr, intravenous, CDT Continuous, Starting on Wed12/09/17 at 1300 New Bag 12/09/2017 11:32 PM [...] ons greater than 90% and notify service. ondansetron (PF) injection 4 mg (ZOFRAN) Given 12/10/2017 6:18 PM CDT 4 mg 4 mg, intravenous, Every 6 hours PRN, nausea, vomiting, Starting on Milly 12/09/17 at 1248, For 48 hours, Reassess for [...] oxyCODONE IR tablet 5 mg (ROXICODONE) Given 12/09/2017 7:00 AM CDT 5 mg 5 mg, oral, Once, On Milly 12/09/17 at 0700, For 1 dose, Pre-Op oxyCODONE IR tablet 5 mg (ROXICODONE) Given 12/09/2017 10:07 AM CDT 5 mg 5 mg, oral, Once as needed, moderate pain or score 4-6 of 10, severe pain or score 7-10 of 10, Starting on Milly 12/09/17 at 0955, For 1 dose, PACU (only), Prior to discharge oxyCODONE IR tablet 5 mg (ROXICODONE) Given 12/10/2017 10:30 AM CDT 5 mg 5 mg, oral, Every 4 hours PRN, moderate pain or score 4-6 of 10, Starting on Milly 12/09/17 at 1248, Second line therapy Given 12/10/2017 5:16 AM CDT 5 mg Given 12/09/2017 10:39 PM CDT 5 mg oxyCODONE IR tablet 5 mg (ROXICODONE) [...] Given 12/10/2017 6:44 AM CDT 40 mg promethazine injection 6.25 mg (PHENERGA N) Given 12/10/2017 9:58 PM CDT 6.25 mg 6.25 mg, intravenous, Every 6 hours PRN, nausea, vomiting, Starting on Milly 12/09/17 at 1248, For 48 hours, RASS must be -2 or higher to administer. Reassess for nausea/vomiting after at least 10 minutes. If nausea or vomiting persists administer next ordered antiemetic medications (order for antiemetic medication administration ondansetron then droperidol then promethazine). rivaroxaban tablet 10 mg (XARELTO) Given 12/10/2017 4:40 PM CDT 10 mg 10 mg, oral, Daily with dinner, First dose on Milly 12/09/17 at 1700, Drug Monitoring Program: Pharmacist to adjust medication dosing based on indication and drug clearance factors. Given 12/09/2017 5:46 PM CDT 10 mg rOPINIRole tablet 1 mg (REQUIP) Given 12/10/2017 9:34 PM CDT 1 mg 1 mg, oral, Daily at bedtime, First dose (after last modification) on Wed12/10/17 at 0000 Given 12/10/2017 12:06 AM CDT 1 mg sennosides-docusate sodium 8.6-50 mg per Given 12/11/2017 [...] Alva R.N.)2032 (Given - Provider: Nicolas Do RBrayanNBrayan) 0206 (Given - Provider: Subha Barraza R.N.)0833 (Given - Provider: Tonja Hobbs R.N.)1332 (Given - Provider: Tonja Hobbs R.N.)203 (Given - Provider: Marisa Krishnan R.N.) 0158 (Given - Provider: Marisa Mcclain se R.N.)0827 (Given - Provider: Irena Jackman R.N.)1420 (Given - Provider: Irena Jackman R.N.) 1,000 mg, oral, Every 6 hours, First dose on Wed12/09/17 at 1400 azelastine 137 mcg/spray (0.1 %) nasal spray 1 spray (ASTELI N) 0834 (Given - Provider: Tonja Hobbs R.N.)2136 (Given - Provider: Marisa Krishnan R.N.) 0828 (Given - Provider: Irena Jackman R.N.) 1 spray, each nostril, 2 times daily, First dose on Wed12/10/17 at 0900 ceFAZolin in dextrose (iso-os) IVPB 2 g (ANCEF) (COMPL ETED) 1514 (New Bag - Provider: Ulisses Alva R.N.) 0006 (New Bag - Provider: Subha Barraza RIris) 2 g, intravenous, at 200 mL/hr, Administ er over 30 Minutes, Every 8 hours, First dose on Wed12/09/17 at 1600, For 2 doses, Start within 8 hours of last IV dose. premix, Drug Monitoring Program: Pharmaci st to adjust medication dosing based on indication and drug clearance factors., Indications: Prophylaxis, surgical ceFAZolin injection 2 g (ANCEF) (COMPLETED) 0815 (Give n - Provider: Dianelys Espinosa RBrayanNBrayan) 2 g, intravenous, Once, On Wed12/09/17 a t 0715, For 1 dose, Intra-Op, [...] ( Given - Provider: Josie Jean Baptiste RBrayanNBrayan) 400 mg, oral, Once, On Wed12/09/17 at 0700, For 1 dose, Pre-Op gentamicin [...] 0642 (Given - Provider: Marisa Mcclain se R.N.) 150 mcg, oral, Daily before breakfast, First dose on Wed12/10/17 at 0700 mirtazapine tablet 30 mg (REMERON) 2134 (Given - Provider: Marisa Krishnan, R.N.) 30 mg, oral, Daily at bedtime, First dose on Wed12/10/17 at 2100 oxybutynin 24 hr tablet 10 mg (DITROPAN-XL) 0833 (Given - Provider: Tonja Hobbs R.N.)2134 (Given - Provider: Marisa Krishnan R.N.) 0827 (Given - Provider: Irena Jackman R.N.) 10 mg, oral, 2 times daily, First dose o n Wed12/10/17 at 0900, Swallow whole. Do NOT crush, chew, or split tablet. oxyCODONE IR tablet 5 mg (ROXICODONE) (COMPLETED) 0700 (Given - Provider: Josie Jean Baptiste RBrayanNBrayan) 5 mg, oral, Once, On Wed12/09/17 at 0700, For 1 dose, Pre-Op pantoprazole DR tablet 40 mg (PROTONIX) 0644 (Given - Provider: Subha Barraza RBrayanN.) 0642 (Given - Provider: Marisa Mcclain se R.NBrayan) 40 mg, oral, Daily before breakfast, Fir st dose on Wed12/10/17 at 0700, Swallow whole. Do NOT crush, chew, or split tablet. rivaroxaban tablet 10 mg (XARELTO) 1746 (Given - Provider: Marcial Alva RBrayanNBrayan) 1640 (Given - Provider: Ulisses Alva RBrayanNBrayan) 10 mg, oral, Daily with dinner, First [...] (SENOKOT-S) 2031 (Given - Provider: Nicolas Do R.N.) 0833 (Given - Provider: Tonja Hobbs R.N.)2133 (Given - Provider: Marisa Krishnan R.N.) 0828 (Given - Provider: Irena Jackman R.N.) 1 tablet, oral, 2 times daily, First dos e on Wed12/09/17 at 2100, Do not give if patient has diarrhea. tranexamic acid in NaCl 0.9% IVPB 1 g (CYKLOKAPRON) (C OMPLETED) 0816 (Given - Provider: Dianelys Espinosa RBrayanN.)0923 (Anesthesia Volume Adjustment - Provider: Dianelys Espinosa RBrayanN.) 1 g, intravenous, at 180 mL/hr, Administ er over 20 Minutes, Once, On Wed12/09/17 at 0700, For 1 dose, Pre-Op, Administer in OR upon induction premix bag, Drug Monitoring Program: Pharmacist to adjust me dication order based on comorbities and indication. tranexamic acid in NaCl 0.9% IVPB 1 g (CYKLOKAPRON) (C OMPLETED) 0856 (Given - Provider: Kavin Ingram APRN, VASCULAR PHYSICIAN)0923 (Anesthesia Volume Adjustment - Provider: Dianelys Espinosa [...] R.N.) 20 mL/hr, intravenous, Continuous, Starting on Milly 12/09/17 at 07 00 NaCl 0.9% infusion 1359 (New Bag - Provider: Lena Alva RIris)2332 (New Bag - Provider: Sandy MajanoNBrayan) 0000 (Rate/Dose Verify - Provider: Isaias Barraza RBrayanNBrayan)0838 (Stopped - Provider: Tonja Hobbs RBrayanNBrayan) 100 mL/hr, intravenous, Continuous, Starting on Milly 12/09/17 at 1 300 PRN Medication Order 12/09/2017 12/10/2017 12/11/2017 albuterol 90 mcg/actuation inhaler 2 puff (PROVENTIL HFA,VENTOLI N HFA) 2 puff, inhalation, Every 4 hours PRN, w heezing, shortness of breath, Starting Milly 12/09/17 at 2129 calcium carbonate chewable tablet 400 mg of calcium (TUMS) 1640 (Given - Provider: Ulisses Alva R.N.) 400 mg of calcium, oral, Every 2 hour [place] N, indigestion, Starting on Wed12/09/17 at 1248, [...] Neville R.N.)1016 (Given - Provider: Isamar Neville RBrayanN.)1021 (Given - Provider: Isamar Neville R.N.) 25 mcg, intravenous, Every 2 min [...] service. ondansetron (PF) injection 4 mg (ZOFRAN) 1818 (Given - Provider: Ulisses Alva RIris) 4 mg, intravenous, Every 6 hours PRN, na usea, vomiting, Starting on Milly 12/09/17 at 1248, For 48 hours, Reassess for nausea or vomiting after at least 10 minutes. If nausea or vomiting persists administe r next ordered antiemetic medications (o rder for antiemetic medication administration ondansetron then droperidol then promethazine). oxyCODONE IR tablet 10 mg (ROXICODONE)(Linked Group 1) 1332 (Given - Provider: Tonja Hobbs RIris)1640 (Given - Provider: Ulisses Alva R.N.)2212 (See Alternative - Provider: Marisa Krishnan RIris) 0402 (See Alternative - Provider: Marisa Krishnan RIris)0827 (See Alternative - Provider: Irena Jackman R.N.)1121 [...] Alva R.N.)2239 (Given - Provider: Nicolas Do R.N.) 0516 (Given - Provider: Elsie romeo R.N.)1030 (Given - Provider: Tonja Hobbs R.N.) 5 mg, oral, Every 4 hours PRN, moderate pain or score 4-6 of 10, Starting on Milly 12/09/17 at 1248, Second line therapy oxyCODONE IR [...] line therapy promethazine injection 6.25 mg (PHENERGAN) 2158 (Given - Provider: Marisa Krishnan RBrayanNBrayan) 6.25 mg, intravenous, Every 6 hours PRN, [...] Provider: Tonja Hobbs R.N.)1130 (Given - Provider: Sandy RussellN.) 0953 (See Alternative - Provider: Carlos Pearson M.S.NBrayan, R.N.) 100 mg, oral, Every 6 hours [...] 100mg given instead)1130 (See Alternative - Provider: Sandy RussellN.) 0953 (Given - Provider: Marcial Montgomery. S.N., R.N.) 50 mg, oral, Every 6 hours PRN, mild eblla n or score 1-3 of 10, Starting [...] or score 7-10 of 10, Starting on 12/10/17 at 1300
Second line therapy. If patient [...]
--- OUTSIDE RECORDS SUMMARY | 2022-02-13 12:14 | XMS_ITS | Encounter Summary ---
:1950 Author Organization [facility] Address [address] [place] [id number] Care Team Providers Name Role Phone Unavailable Primary Care Provider Unavailable Reason for Visit Reason Onset Date Comments PT update/PT order 01/20/2018 Encounter Details Date Type Department Care Team Description 01/20/2018 Clinical Communication Department of Suhas Brown PT u pdate/PT order Orthopedic Surgery Guilherme Baker in [address] [place] [id number] [place], [place] [phone] (Work) [phone] Social History Tobacco Use Types Packs/Day Years [...] or relatives? How often do you attend voodoo or roman catholic More than 4 time s per year 10/07/2020 services? Do you belong to any clubs or organizations No 10/07/2020 such as voodoo groups, unions, fraternal or athletic groups, or [...] slept in a care home (including now)? Sex Assigned at Date Recorded Female 03/15/2018 11:32 AM DRY KILN BURNER documented as of this encounter Miscellaneous Notes Telephone Encounter - Sneha Moreno P.A.-C., M.S. - 01/20/2018 3:10 PM CDT Mrs. Caba underwent a left total knee arthroplasty on December 09, 2017 she has been strugglingwith her extension. She has been working with physical therapy and has made progress. She still had is lacking about 9 degrees of extension. We will have her continue to work with a physical therapist and call her in about a week to make sure she continues to make progress. At this point she is happy with her progress she has made. Telephone Encounter - Nory Cunha - 01/20/2018 2:23 PM CDT Patient had total knee 6 weeks ago. She had spoke with Dr. Rehman recently and she was to call after going to PT. Patient went to PT today. ROM lacking 16% of extension, got it down to 9% lack after doing therapy. Flex is 120%. Noted tightness in left hip flexor; left hip was replaced 2 years ago. She states that she was told that ROM 10-15% lack would be on track, with a 20- 25% lack she would need manipulation. She was given exercises to do at home. Asking for an order for a few more PT sessions. Mail to the patient. documented in this encounter Plan of Treatment Not on filedocumented as of this encounter Visit Diagnoses Diagnosis Aftercare Total Knee Arthroplasty - Prim qasim documented in this encounter
--- OUTSIDE RECORDS SUMMARY | 2022-02-13 12:14 | XMS_ITS | Encounter Summary ---
:1950 Author Organization [facility] Address [address] [place] [address] Care Team Providers Name Role Phone Unavailable Primary Care Provider Unavailable Encounter Details Date Type Department Care Team Description 03/15/2018 Hospital Encounter Department of Suhas Brown I., Shania frausto Knee Radiology, [place] Guilherme [facility], in [place] [address] [address] [place], [place] [address] [facility] [address] [place], [place] [phone] (Work) [phone] Social History Tobacco Use Types Packs/Day Years [...] or relatives? How often do you attend buddhist or jehovah's witness More than 4 time s per year 10/07/2020 services? Do you belong to any clubs or organizations No 10/07/2020 such as buddhist groups, unions, fraternal or athletic groups, or [...] place to sleep or slept in a [facility] (including now)? Sex Assigned at Date Recorded Female 03/15/2018 11:32 AM CARPET TILE LAYER documented as of this encounter Medications at [...] total) by mouth every 6 (six) hours. iakwgyg-eupszcdobsxgc-cq Take 1 tablet by 0 07/09/2020 ffeine [...] Name Priority Date/Time Associated Comments Diagnosis DX KNEE LEFT RAD - Routine 03/15/2018 11:17 Arthritis Knee Results for this STANDING 3 VIEWS (most inpatients AM CARPET TILE LAYER procedu re are in and all the results outpatients) section. documented in this encounter Results DX Knee Left Standing 3 Views (03/15/2018 11:17 AM CARPET TILE LAYER) Anatomical Region Laterality Modality Lower Extremity, Knee, Musculoskeletal RST LOS, Left Digital Radiography Musculoskeletal ARZ LOS, Muskuloskeletal FLA LOS Specimen (Source) Anatomical Collection Method Collection Time Re ceived Time Location / / Volume Laterality 03/15/2018 11:27 AM CARPET TILE LAYER Impressions 03/15/2018 11:28 AM CARPET TILE LAYER IMPRESSION: ??Left TKA is well seated. Effusion or synovitis left knee. Soft tissue swelling about the left knee ante riorly. Right TKA with patellar resurfacing. Narrative 03/15/2018 11:28 AM CARPET TILE LAYER EXAM: ??DX KNEE LEFT STANDING 3 VIEWS Procedure Note Lan Major M.D. - 03/15/2018Forma tting of this note might be different from the original. EXAM: DX KNEE LEFT STANDING 3 VIEWS IMPRESSION: Left TKA is well seated. Eff usion or synovitis left knee. Soft tissue swelling about the left knee ante riorly. Right TKA with patellar resurfacing. Suhas [facility] PROCE BIGG documented in this encounter Visit Diagnoses Diagnosis Arthritis Knee documented in this encounter
--- OUTSIDE RECORDS SUMMARY | 2022-02-13 12:14 | XMS_ITS | Encounter Summary ---
:1950 Author Organization [facility] Address [address] [place] [address] Care Team Providers Name Role Phone Unavailable Primary Care Provider Unavailable Encounter Details Date Type Department Care Team Description 04/17/2019 Hospital Encounter Department of Reed Treviño hroplasty Total Radiology, Brandon Ceja M.D. [facility], in [facility] [place], [place] [address] [place] [address] Social History Tobacco Use Types Packs/Day Years [...] How often do you attend jewish or pentecostalism More than 4 time s per year [...] at Date Recorded Female 03/15/2018 11:32 AM CIVIL ENGINEERING DESIGNER documented as of this encounter Medications at [...] total) by mouth every 6 (six) hours. inydwph-onrkqjdyhyoqb-av Take 1 tablet by 0 07/09/2020 ffeine [...] Diagnosis DX KNEE LEFT RAD - Routine 04/17/2019 8:09 Arthroplasty Total Resul ts for this STANDING 3 VIEWS (most inpatients AM CIVIL ENGINEERING DESIGNER Knee Replacement pro cedure are in and all Status Post Left the results outpatients) section. documented in this encounter Results DX Knee Left Standing 3 Views (04/17/2019 8:09 AM CIVIL ENGINEERING DESIGNER) Anatomical Region Laterality Modality Lower Extremity, Knee, Musculoskeletal RST LOS, Left Digital Radiography Musculoskeletal ARZ LOS, Muskuloskeletal FLA LOS Specimen (Source) Anatomical Collection Method Collection Time Re ceived Time Location / / Volume Laterality 04/17/2019 8:37 AM CIVIL ENGINEERING DESIGNER Impressions 04/17/2019 8:39 AM CIVIL ENGINEERING DESIGNER Left TKA is well seated. Small effusion and/or synovitis left knee. Right TKA with patellar resurfacing. Ful l-length view of both lower extremities obtained for orthopedic measurement purp oses. Left ELSY. Incompletely visualized lumbosacral fusion. 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 Sclerosis distal right tibia unchanged since 07/23/2016. Narrative 04/17/2019 8:39 AM CIVIL ENGINEERING DESIGNER EXAM: ??DX HIP TO ANKLE STANDING, DX [...] unchanged since 07/23/2016. Reed [facility] ANGIE PRIDE documented in this encounter Visit Diagnoses Diagnosis Arthroplasty Total Knee Replacement Stat us Post Left documented in this encounter
--- OUTSIDE RECORDS SUMMARY | 2022-02-13 12:14 | XMS_ITS | Encounter Summary ---
:1950 Author Organization [facility] Address [address] [place] [address] Care Team Providers Name Role Phone Unavailable Primary Care Provider Unavailable Encounter Details Date Type Department Care Team Description 03/15/2018 Hospital Encounter Department of Sneha Moreno Total Hip Radiology, Tremaine Ceja P.A.-C., [facility] [address] [facility] [address] [place] [phone] Social History Tobacco Use Types Packs/Day Years [...] How often do you attend yarsanism or islam More than 4 time s per year [...] place to sleep or slept in a [place] [facility] [place] (including now)? Sex Assigned at Date Recorded Female 03/15/2018 11:32 AM ANESTHESIOLOGIST documented as of this encounter Medications at [...] total) by mouth every 6 (six) hours. ztwqyoi-citmpmxrkhgzj-qk Take 1 tablet by 0 07/09/2020 ffeine [...] Priority Date/Time Associated Comments Diagnosis DX HIP LEFT 2-3 RAD - Routine 03/15/2018 11:17 Aftercare Total Hip Results for this VIEWS (most inpatients AM ANESTHESIOLOGIST Arthroplasty procedure a re in and all the results outpatients) section. documented in this encounter Results DX Hip Left 2-3 Views (03/15/2018 11:17 AM ANESTHESIOLOGIST) Anatomical Region Laterality Modality Lower Extremity, Hip, Musculoskeletal RST LOS, Left Digital Radiography Musculoskeletal ARZ LOS, Muskuloskeletal FLA LOS Specimen (Source) Anatomical Collection Method Collection Time Re ceived Time Location / / Volume Laterality 03/15/2018 11:25 AM ANESTHESIOLOGIST Impressions 03/15/2018 11:29 AM ANESTHESIOLOGIST IMPRESSION: ??Demineralization. Left ELSY without findings of loosening. Dense material presumably projected within the bowel which can be seen with oral contrast versus other ingested material. Please correlate with patient's history. ?? Narrative 03/15/2018 11:29 AM ANESTHESIOLOGIST EXAM: ??DX HIP LEFT 2-3 VIEWS Procedure [...] Sneha Moreno P.A.-C., M.S. IMG DIAGNOSTIC IMAGING HI OCEDURES documented in this encounter Visit Diagnoses Diagnosis Aftercare Total Hip Arthroplasty documented in this encounter
--- OUTSIDE RECORDS SUMMARY | 2022-02-13 12:15 | XMS_ITS | Encounter Summary ---
:1950 Author Organization [facility] Address [address] [place] [address] Care Team Providers Name Role Phone Unavailable Primary Care Provider Unavailable Reason for Visit Auth/Cert Specialty Diagnoses / Procedures Referred By Contact Refer red To Contact Diagnoses Other Specified Arthritis Left Knee Procedures OH ARTHRO KNEE CONDYLE&PLAT (TKA) ARTHROPLASTY REPLACEMENT TOTAL KNEE Referral ID Status Reason Start Date Expiration Date Visits Requ ested Visits Authorized [id number] 1 1 Encounter Details Date Type Department Care Team Description 12/09/2017 Anesthesia Event [facility] OR Braden Baker, [address] [place] [phone] Anesthesia Record Procedure Summary Procedure Name Responsible Anesthesia Start Anesthesia Stop Anesthesiologist Time Time ARTHROPLASTY Braden Baker M.D. 12/09/17 0739 12/09/17 0 952 REPLACEMENT TOTAL KNEE. (Left: Knee) Events Date Time Event Comment 12/09/2017 0739 An Start Machine/Equipmen t Checked Infection Precautions Foll owed Procedure/Site Verified NPO Sta tus Verified Supine Standard ASA Mon itors Applied 0745 An Induction 0749 An Intubation 0750 Turnover to Proceduralist 0934 Turnover to ANE Staff 0940 Airway Removal Criteria Met 0940 Extubation/Airway Removed 0941 an stop data 0952 An End I completed my h andoff to the receiving staff during [facility] [facility] we 1. Identified the patient 2. Ident ified the responsible provider 3. Revi ewed the pertinent medical history 4. Discussed the surgical course 5. Review ed intra-op anesthesia management and i ssues during anesthesia 6. Set expectati ons for post-procedure period 7. Allowe d opportunity for questions and ac knowledgement of understanding. Name Total fentanyl injection 50 mcg/mL 250 mcg lidocaine 2% (mg) injection 100 mg propofol 10 mg/mL 190 mg succinylcholine 20 mg/mL injection 180 mg ondansetron 4 mg/2 mL injection 4 mg ePHEDrine PF 5 mg/mL syringe injection 20 mg ceFAZolin injection 2 g (ANCEF) 2 g dexmedetomidine 4 mcg/mL infusion 57.4 mcg ketamine 10 mg/mL injection 40 mg tranexamic acid in NaCl 0.9% IVPB 1 g (CYKLOKAPRON) 1 g tranexamic acid in NaCl 0.9% IVPB 1 g (CYKLOKAPRON) 1 g droperidol 2.5 mg/mL injection 0.625 mg dexamethasone 4 mg/mL injection 8 mg dexmedetomidine bolus from bag 41 mcg lactated ringers 800 mL Agents No agents on file. Blood No blood administrations on file. Lines, Drains, and Airways Type Details Placement Removal Peripheral IV Placement Date: 12/09/17738 by 12/10/[id number] y 12/09/17; Placement Dianelys Arellano R.N. Cheak, Emi ly C Time: 738; Catheter Size: 22 G; Orientation: Left; Location: Hand; Technique: Other (Comment) (Palpation); Inserted by: MARA Balderas; Removal Date: 12/10/17; Removal Time: 2114; Removal Reason: Infiltrated ETT Placement Date: 12/09/17748 by 12/09/17939 b y 12/09/17; Placement Dianelys Arellano R.N. Yang, Lind a, R.N. Time: 748 (created via procedure documentation); Mask Ventilation: Oral/Nasal airway needed; Type: Standard ETT; Single Lumen Tube Size: 7 mm; Cuffed: Yes; Blade Size: MAC 3; Location: Oral; Removal Date: 12/09/17; Removal Time: 939 Indwelling Urinary Placement Date: 12/09/17 0756 by 12/10/17 09 4 by Catheter 12/09/17; Placement Anika Sifuentes J aclyn N, Time: 755; Inserted M, B.S., B.S.N., R.N., C.M. S.R.N. by: Ab Boston R.N. CSA; Type: Non-latex; Size: 16 Fr.; Balloon Size: 5 mL (filled with 10cc sterile saline); Urine Returned: Yes; Removal Date: 12/10/17; Removal Time: 923; Removal Reason: Per order (RETIRED) Incision 12/09/17; 915; Knee; 12/09/17 0916 by [id number] by Left; ADH Anika Laura-Lenardi noreen-Backgroun 0.7ML (x2), SAM GZ 16 M, B.S., B.S.N., d, Sam uling PLY 4X4 (x1), SAM VIBRATION TECHNICIAN R.N. Automated Batch Job WND ABD ABS 8X10 (x1), BNDG HANS NSTRL 6 DBL (x1); 12/17/20 (Removed by background completion utility); 141 (Removed by background completion utility) documented in this [...] or relatives? How often do you attend restorationism or rastafarian More than 4 time s per year 10/07/2020 services? Do you belong to any clubs or organizations No 10/07/2020 such as restorationism groups, unions, fraternal or athletic groups, or [...] at Date Recorded Female 03/15/2018 11:32 AM LEATHER TOOLER documented as of this encounter OR Notes Anesthesia Postprocedure Evaluation - Braden Baker M.D. - 12/09/2017 10:26 AM CDT Patient: Mindi Caba Procedure Summary Date: 12/09/17 Room / Location: [place] [address] / [facility] in [place], [place] Anesthesia Start: 738 Anesthesia Stop: 951 Procedure: ARTHROPLASTY REPLACEMENT TOTAL KNEE. (Left Knee) Diagnosis: Other Specified Arthritis Left Knee (Other Specified Arthritis Left Knee [M13.862].) Provider: Suhas Brown M.D. Responsible Provider: Braden Baker M.D. Anesthesia Type: general ASA Status: 3 Anesthesia Type: general Last vitals BP 119/63 (12/09/17 1015) Temp 36.4 ??C (12/09/17 0948) Pulse 75 (12/09/17 1020) Resp 16 SpO2 92 % (12/09/17 1020) Anesthesia Post Evaluation 12/09/2017 10:26 AM Patient Disposition: general care unit Cardiovascular status: hemodynamics (HR & BP) acceptable Respiratory status: patent airway with spontaneous effort Temperature: normothermic Oxygen requirements: room air Level of consciousness: awake Pain score: pain adequately controlled and/or at baseline Post Op nausea/vomiting: none Hydration status: euvolemic Anesthesia Preprocedure Evaluation - Braden Baker M.D. - 12/09/2017 8:39 AM CDT Anesthesia Pre-Evaluation Pertinent components of the patient's history including current problem list, medical history, surgical history, family history, social history, medications and allergies were reviewed and updated as appropriate. The patient was examined and the Pre-op diagnosis, planned procedure, and H&P were reviewed and remain unchanged. PROBLEM LIST Relevant Problems RESP (+) Asthma Mild Intermittent (HCC) ENDO (+) Hypothyroidism GI (+) Gastroesophageal Reflux Disease NOS Other (+) Fusion Lumbar Spine Status Post (+) Morbid Severe Obesity Due To Excess Calories (HCC) OBJECTIVE PHYSICAL EXAMINATION Airway (HEENT) Mallampati: II TM Distance: >3 FB Neck ROM: Full Cardiovascular Rhythm: Regular Rate: Normal Cardiovascular Assessment: Normal Pulmonary Pulmonary Assessment: Clear Neurological Normal Dental Normal General / Constitutional Normal ASSESSMENT / PLAN ANESTHESIA PLAN ASA: 3 Anesthesia Plan: general Patient seen and allergies reviewed; anesthesia plan and risks discussed directly with patient / legal guardian, or through an chain splitter; patient evaluated and approved for anesthesia / sedation. Use of blood products discussed with patient who consented to blood products. Anesthesia Procedure Notes - Dianelys Zavala R.N. - 12/09/2017 8:20 AM CDTAssociated Order(s): AIRWAY MANAGEMENT Airway Date/Time: 12/09/2017 7:49 AM Patient location during procedure: OR / Procedure Area Performed by: DIANELYS ZAVALA Authorized by: BRADEN BAKER Pre procedure details Pre evaluation for airway management: procedure Urgency: elective Preop assessment of probable difficulty: questionable / suspicious difficult airway Sedation level: anesthetized Preoxygenation: bag valve mask Procedure details Mask difficulty assessment: oral/nasal airway needed Final airway type: direct laryngoscopy, intubation Laryngeal Manipulation: no Final airway difficulty of direct laryngoscopy (DL): 0-easy Final best view of glottic structures - Cormack/Lehane Score: grade 2A ETT location: oral Adult blade type: MAC 3 Adult tube size: 7 Adult ETT distance at teeth/gum: 21 Oral tube type: standard ETT Cuffed: yes Airway confirmation: bilateral breath sounds, positive ETCO2 and bilateral chest rise Other previous techniques attempted: none Post procedure details Procedure outcome: successful Airway event: no complications documented in this encounter Plan of Treatment Not on filedocumented as of this encounter Procedures Procedure Name Priority Date/Time Associated Comments Diagnosis LDA ANE ENDOTRACHEAL Routine 12/09/2017 8:20 AM R esults for this AIRWAY CDT procedure are i n the results section. documented in this encounter Results LDA ANE ENDOTRACHEAL AIRWAY (12/09/2017 8:20 AM CDT) Narrative Dianelys Zavala R.N. - 12/09/2017 8:20 AM CD T Dianelys Zavala R.N. ? 12/09/2017 ??8:21 AM Airway Date/Time: 12/09/2017 7:49 AM Patient location during procedure: OR / Procedure Area Performed by: DIANELYS ZAVALA Authorized by: BRADEN BAKER Pre procedure details ?? Pre evaluation for airway management : procedure ?? Urgency: elective ?? Preop assessment of probable difficu lty: questionable / suspicious difficult airway ?? Sedation level: anesthetized ?? Preoxygenation: bag valve mask Procedure details ??Mask difficulty assessment: oral/nasa l airway needed ?? Final airway type: direct laryngosco py, intubation Laryngeal Manipulation: no ? Final airway difficulty of direct la ryngoscopy (DL): 0-easy ?? Final best view of glottic structure s - Cormack/Lehane Score: grade 2A ?? ETT location: oral ?? Adult blade type: MAC 3 ?? Adult tube size: 7 ?? Adult ETT distance at teeth/gum: 21 ?? Oral tube type: standard ETT ?? Cuffed: yes ?? Airway confirmation: bilateral breat h sounds, positive ETCO2 and bilateral chest rise ?? Other previous techniques attempted: none Post procedure details ?? Procedure outcome: successful ? Airway event: no complications Procedure Note Dianelys Zavala R.N. - 12/09/2017 8:20 AM CD T Airway Date/Time: 12/09/2017 7:49 AM Patient location during procedure: OR / Procedure Area Performed by: DIANELYS ZAVALA Authorized by: BRADEN BAKER Pre procedure details Pre evaluation for airway management: p rocedure Urgency: elective Preop assessment of probable difficulty : questionable / suspicious difficult airway Sedation level: anesthetized Preoxygenation: bag valve mask Procedure details Mask difficulty assessment: oral/nasal airway needed Final airway type: direct laryngoscopy, intubation Laryngeal Manipulation: no Final airway difficulty of direct laryn goscopy (DL): 0-easy Final best view of glottic structures - Cormack/Lehane Score: grade 2A ETT location: oral Adult blade type: MAC 3 Adult tube size: 7 Adult ETT distance at teeth/gum: 21 Oral tube type: standard ETT Cuffed: yes Airway confirmation: bilateral breath s ounds, positive ETCO2 and bilateral chest rise Other previous techniques attempted: no ne Post procedure details Procedure outcome: successful Airway event: no complications Braden Baker M.D. ANESTHESIA ORDERABLES documented in this encounter Visit Diagnoses Not on filedocumented in this encounter Administered Medications Inactive Administered Medications - up to 3 most recent administrations Medication Order MAR Action Action Date Dose Rate Site ceFAZolin injection 2 g (ANCEF) Given 12/09/2017 8:15 AM CDT 2 g 2 g, intravenous, Once, On Milly 12/09/17 at 0715, For 1 dose, Intra-Op, Preoperatively within 1 hour prior to surgical incision [place] IV push over 3 minutes. Add 5 mL NS to 1 gram vial for a final concentration of 200 mg/mL., Drug Monitoring Program: Pharmacist to adjust medication order based on comorbities and indication., Indications: Prophylaxis, surgical dexamethasone injection (DECADRON) Given 12/09/2017 8:05 AM CDT 8 mg As needed, Starting on Milly 12/09/17 at 0805, Anesthesia Intra-op dexmedetomidine 4 mcg/mL in New Bag 12/09/2017 8:00 AM 0.5 mcg /kg/hr 10.25 mL/hr NaCl 0.9% 100 mL infusion CDT (PRECEDEX) Continuous Infusion: Per Instructions PRN, Starting on Milly 12/09/17 at 0800, Anesthesia Intra-op dexmedetomidine bolus from bag (PRECEDEX ) Given 12/09/2017 7:55 AM CDT 41 mcg Administer over 10 Minutes, As needed, Starting on Milly 12/09/17 at 0755, Anesthesia Intra-op droperidol injection (INAPSINE) Given 12/09/2017 8:20 AM CDT 0.625 mg intravenous, As needed, nausea, vomiting, Starting on Milly 12/09/17 at 0820, Anesthesia Intra-op ePHEDrine (PF) injection Given 12/09/2017 8:13 AM CDT 10 mg intravenous, As needed, Starting on Milly 12/09/17 at 0813, Anesthesia Intra-op Given 12/09/2017 8:10 AM CDT 10 mg fentaNYL injection (SUBLIMAZE) Given 12/09/2017 8:32 AM CDT 50 mcg intravenous, As needed, severe pain or score 7-10 of 10, Starting on Milly 12/09/17 at 0746, Anesthesia Intra-op Given 12/09/2017 8:22 AM CDT 100 mcg Given 12/09/2017 7:46 AM CDT 100 mcg ketamine injection (KETALAR) Given 12/09/2017 8:55 AM CDT 20 mg As needed, Starting on Milly 12/09/17 at 0830, Anesthesia Intra-op Given 12/09/2017 8:30 AM CDT 20 mg lactated ringers Continued from OR 12/09/2017 9:50 AM CDT 20 mL/hr 20 mL/hr 20 mL/hr, intravenous, Continuous, Starting on Milly 12/09/17 at 0700 New Bag 12/09/2017 7:39 AM CDT lidocaine (PF) (cardiac) injection Given 12/09/2017 7:46 AM CDT 100 mg intravenous, As needed, Starting on Milly 12/09/17 at 0746, Anesthesia Intra-op ondansetron (PF) injection (ZOFRAN) Given 12/09/2017 8:33 AM CDT 4 mg intravenous, As needed, nausea, vomiting, Starting on Milly 12/09/17 at 0833, Anesthesia Intra-op propofol injection (DIPRIVAN) Given 12/09/2017 8:23 AM CDT 50 mg intravenous, As needed, Starting on Milly 12/09/17 at 0746, Anesthesia Intra-op Given 12/09/2017 7:46 AM CDT 140 mg succinylcholine-0.9% NaCl (PF) injection Given 12/09/2017 7:46 A M CDT 180 mg (ANECTINE) intravenous, As needed, Starting on Milly 12/09/17 at 0746, Anesthesia Intra-op tranexamic acid in NaCl 0.9% IVPB 1 g Given 12/09/2017 8:16 AM C DT 1 g (CYKLOKAPRON) 1 g, intravenous, at 180 mL/hr, Administer over 20 Minutes, Once, On Milly 12/09/17 at 0700, For 1 dose, Pre-Op, Administer in OR upon induction premix bag, Drug Monitoring Program: Pharmacist to adjust medication order based on comorbities and indication. tranexamic acid in NaCl 0.9% IVPB 1 g Given 12/09/2017 8:56 AM C DT 1 g (CYKLOKAPRON) 1 g, intravenous, at 180 mL/hr, Administer over 20 Minutes, Once, On Milly 12/09/17 at 0700, For 1 dose, Pre-Op, Administer in OR just before dropping tourniquet premix bag, Drug Monitoring Program: Pharmacist to adjust medication order based on comorbities and indication. documented in this encounter
--- OUTSIDE RECORDS SUMMARY | 2022-02-13 12:15 | XMS_ITS | Encounter Summary ---
:1950 Author Organization [facility] Address [address] [place] [address] Care Team Providers Name Role Phone Unavailable Primary Care Provider Unavailable Encounter Details Date Type Department Care Team Description 07/17/2015 Hospital Encounter HX NO MAPPING Mallory Mckeon C.Ph.T. Social History Tobacco Use Types Packs/Day Years Used Date Smoking Tobacco: Never Assessed Alcohol Habits Answer Date Recorded How often [...] or relatives? How often do you attend latter-day or synagogue More than 4 time s per year 10/07/2020 services? Do you belong to any clubs or organizations No 10/07/2020 such as latter-day groups, unions, fraternal or athletic groups, or [...] place to sleep or slept in a longterm (including now)? 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 cholecalciferol (VITAMIN Take 4,000 Units by 0 D3) 50 mcg (2,000 Unit) mouth every morning. tablet mirtazapine (REMERON) 45 Take 45 mg by mouth 0 mg tablet at bedtime. rOPINIRole (REQUIP) 2 mg Take 2 mg by mouth at 0 07/17/2015 tablet bedtime. simvastatin (ZOCOR) 20 Take 1 tablet by 0 016 mg tablet mouth at bedtime. estrogens, conjugated, Insert 1 0 09/18/2013 (PREMARIN) 0.625 mg/gram Applicatorful into vaginal cream the vagina 2 (two) times a week. Per patient uses on Tuesdays and Fridays ferrous sulfate 325 mg Take 1 tablet by 0 016 07/09/2020 (65 mg iron) tablet mouth every morning. omeprazole (PriLOSEC) 20 Take 1 capsule by 0 06/2807/09/2020 mg capsule mouth 2 (two) times a day. documented as of this encounter Plan of Treatment Not on filedocumented as of this encounter Visit Diagnoses Not on filedocumented in this encounter
--- OUTSIDE RECORDS SUMMARY | 2022-02-13 12:15 | XMS_ITS | Encounter Summary ---
:1950 Author Organization [facility] Address [address] [place] [address] Care Team Providers Name Role Phone Unavailable Primary Care Provider Unavailable Encounter Details Date Type Department Care Team Description 08/11/2017 Hospital Encounter Department of Tiffanie, Sneha Ceja, Pain Knee Left Radiology, Brandon Fuentes M.S. [facility], in [address] [place] [id number] [place], [place] [phone] (Work) [phone] Social History Tobacco Use Types Packs/Day Years Used Date Smoking Tobacco: Never Alcohol Habits Answer Date Recorded How often [...] or relatives? How often do you attend presybeterian or quaker More than 4 time s per year 10/07/2020 services? 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 sennosides-docusate Take 1 tablet by 60 tablet 0 12/09/2017 01/08/2018 sodium (SENOKOT-S) mouth 2 (two) times a 8.6-50 mg per tablet day. acetaminophen (TYLENOL) Take 2 tablets (1,000 60 tablet 1 0 12/09/2017 07/09/2020 500 mg tablet mg total) by mouth every 6 (six) hours. kpfdfvg-sgatkwlzzzevm-mz Take 1 tablet by 0 07/09/2020 ffeine [...] affected mcg/actuation nasal nostril(s) every spray morning. naproxen sodium Take 220 mg by mouth 0 12/11/2017 (ALEVE/ANAPROX) 220 mg 2 (two) times a day tablet as needed. omeprazole (PriLOSEC) 20 Take 1 capsule by [...] Diagnosis DX KNEE LEFT RAD - Routine 08/11/2017 12:24 Pain Knee Left Results for this FLEXION AND (most inpatients PM CDT procedure a re in PATELLA 4 VIEWS and all the results outpatients) section. documented in this encounter Results DX Knee Left with Flexion and Patella 4 Views (08/11/2017 12:24 PM CDT) Anatomical Region Laterality Modality Lower Extremity, Knee, Musculoskeletal RST LOS Left Computed Radiography Specimen (Source) Anatomical Collection Method Collection Time Re ceived Time Location / / Volume Laterality 08/11/2017 12:29 PM CDT Impressions 08/11/2017 12:30 PM CDT IMPRESSION: ??Degenerative hypertrophic arthritis left knee with moderate tricompartmental narrowing most pronounc ed medially. Possible loose body posteriorly. Small joint effusion with b ursal calcifications. Right TKA. Narrative 08/11/2017 12:30 PM CDT EXAM: ??DX KNEE LEFT FLEXION AND PATELLA 4 VIEWS Procedure Note Javier Wade M.D. - 08/11/2017Form atting of this note might be different from the original. EXAM: DX KNEE LEFT FLEXION AND PATELLA 4 VIEWS IMPRESSION: Degenerative hypertrophic ar thritis left knee with moderate tricompartmental narrowing most pronounc ed medially. Possible loose body posteriorly. Small joint effusion with b ursal calcifications. Right TKA. Sneha Moreno P.A.-C., M.S. IMG DIAGNOSTIC IMAGING [place] OCEDURES documented in this encounter Visit Diagnoses Diagnosis Pain Knee Left documented in this encounter
--- OUTSIDE RECORDS SUMMARY | 2022-02-13 12:15 | XMS_ITS | Encounter Summary ---
:1950 Author Organization [facility] Address [address] [place] [address] Care Team Providers Name Role Phone Unavailable Primary Care Provider Unavailable Encounter Details Date Type Department Care Team Description 08/03/2017 Abstract DATA ABSTRACTION Provider, Historical Social History Tobacco Use Types Packs/Day Years [...] or relatives? How often do you attend rastafarian or catholic More than 4 time s per year 10/07/2020 services? Do you belong to any clubs or organizations No 10/07/2020 such as rastafarian groups, unions, fraternal or athletic groups, or [...] place to sleep or slept in a prison (including now)? 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
--- OUTSIDE RECORDS SUMMARY | 2022-02-13 12:15 | XMS_ITS | Encounter Summary ---
:1950 Author Organization [facility] Address [address] [place] [address] Care Team Providers Name Role Phone Unavailable Primary Care Provider Unavailable Reason for Visit Reason Comments Pre-op Exam Outpatient (Routine) - Closed Specialty Diagnoses / Procedures Referred By Contact Refer red To Contact Orthopedic Surgery Diagnoses Other Specified [facility]th[facility] [address] [place] [address] Referral ID Status Reason Start Date Expiration Date Visits Requ ested Visits Authorized [id number] Closed 08/11/2017 02/07/2018 1 1 Encounter Details Date Type Department Care Team Description 12/08/2017 Office Visit Department of Suhas Brown I., Other Spec ified Orthopedic Surgery in M.D. Arthritis Left Knee [place], [place] [address] [facility] [address] [place] [phone] Social History Tobacco Use Types Packs/Day Years [...] or relatives? How often do you attend temple or orthodoxy More than 4 time s per year 10/07/2020 services? 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 - 12/08/2017 11:30 AM CDT HISTORY OF PRESENT ILLNESS Patient returns today in anticipation of a left total knee arthroplasty.We will ensure the patient has been [...] may involve the use of a medical director made by a company with which I or one of my partners have collaborated to design, develop, or improve orthopedic implants, instruments, or products. Both the [facility] and the individual surgeons involved receiveroyalty payments from the use of those specific devices at other institutions, but no royalties or any other payments are paid for the use of those devices with any [facility] patient. The clinical rationale for the use of those devices as well as the availability and applicability of alternative devices was reviewed. The patient understands that the final decision for the use of a specific medical director often is made at the time of surgery. All of the patient's questions were answered; the patient understands and agrees with my approach to device selection and wants to proceed. DIAGNOSES #1 Left knee end-stage arthritis documented in this encounter Plan of Treatment Not on filedocumented as of this encounter Visit Diagnoses Diagnosis Other Specified Arthritis Left Knee documented in this encounter
--- OUTSIDE RECORDS SUMMARY | 2022-02-13 12:15 | XMS_ITS | Encounter Summary ---
:1950 Author Organization [facility] Address [address] [place] [address] Care Team Providers Name Role Phone Unavailable Primary Care Provider Unavailable Encounter Details Date Type Department Care Team Description 04/30/2012 Hospital Encounter HX NO MAPPING Social History Tobacco Use Types Packs/Day Years [...] or relatives? How often do you attend anglican or confucianism More than 4 time s per year 10/07/2020 services? Do you belong to any clubs or organizations No 10/07/2020 such as anglican groups, unions, fraternal or athletic groups, or [...] at Date Recorded Female 03/15/2018 11:32 AM APPLICATIONS SUPPORT ANALYST documented as of this encounter Plan of Treatment Not on filedocumented as of this encounter Visit Diagnoses Not on filedocumented in this encounter
--- OUTSIDE RECORDS SUMMARY | 2022-02-13 12:15 | XMS_ITS | Encounter Summary ---
:1950 Author Organization [facility] Address [address] [place] [address] Care Team Providers Name Role Phone Unavailable Primary Care Provider Unavailable Reason for Visit Reason Onset Date Comments Pre-visit Testing Orders 08/06/2017 Encounter Details Date Type Department Care Team Description 08/06/2017 Clinical Communication Department of Suhas Brown Pre- visit Testing Orthopedic Surgery Guilherme Baker Orders in [address] [place] [id number] [place], [place] [phone] (Work) [phone] Social History Tobacco Use Types Packs/Day Years [...] or relatives? How often do you attend restorationist or sabianist More than 4 time s per year 10/07/2020 services? 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 - 08/06/2017 2:33 PM CDT Ok to also get ankle films Telephone Encounter - Carol Mancia - 08/06/2017 1:[address] Ni patient. Coming in to be seen for her Left knee, she is also having left ankle pain. Please advise if okay toorder ankle x-rays to be done while she is here. Please sign orders prior to 08-11 Dr. Brown appointment. Thanks Carol documented in this encounter Plan of Treatment Not on filedocumented as of this encounter Results DX Knee Left with [...] Sneha Moreno P.A.-C., M.S. IMG DIAGNOSTIC IMAGING [place] OCEDURES DX Ankle Left 3+ Views (08/11/2017 12:19 PM CDT) Anatomical Region Laterality Modality Lower Extremity, Ankle, Musculoskeletal RST LOS Left Computed Radiography Specimen (Source) Anatomical Collection Method Collection Time Re ceived Time Location / / Volume Laterality 08/11/2017 12:28 PM CDT Impressions 08/11/2017 12:29 PM CDT IMPRESSION: ??Scattered degenerative arthritis. Hypertrophic dorsal spur 1st metatarsal head. Pes planus. Plantar stanley l spur. Narrative 08/11/2017 12:29 PM CDT EXAM: ??DX ANKLE LEFT 3+ VIEWS Procedure Note Javier Wade M.D. - 08/11/2017Form atting of this note might be different from the original. EXAM: DX ANKLE LEFT 3+ VIEWS IMPRESSION: Scattered degenerative arthr itis. Hypertrophic dorsal spur 1st metatarsal head. Pes planus. Plantar stanley l spur. Sneha Moreno P.A.-C., M.S. IMG DIAGNOSTIC IMAGING [place] OCEDURES documented in this encounter Visit Diagnoses Diagnosis Pain Knee Left - Primary Pain Ankle Left Pain Ankle Left Pain Knee Left documented in this encounter
--- OUTSIDE RECORDS SUMMARY | 2022-02-13 12:15 | XMS_ITS | Encounter Summary ---
:1950 Author Organization [facility] Address [address] [place] [address] Care Team Providers Name Role Phone Unavailable Primary Care Provider Unavailable Encounter Details Date Type Department Care Team Description 05/02/2012 - Hospital Encounter HX RST UNIT 8-2 05/05/2012 ORTHOPEDICS Social History Tobacco Use Types Packs/Day Years [...] or relatives? How often do you attend bahai or jew More than 4 time s per year 10/07/2020 services? 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 Pulse 76 05/05/2012 5:00 AM Value from [facility]. PMO BUSINESS ANALYST Temperature - - Respiratory Rate 16 05/05/2012 4:37 AM Value from [facility]. PMO BUSINESS ANALYST Oxygen Saturation - - Inhaled Oxygen - - Concentration Weight 105 kg (230 lb 13.2 05/02/2012 10:30 oz) AM PMO BUSINESS ANALYST Height 163 cm (5' 4.17) 05/02/2012 10:30 AM PMO BUSINESS ANALYST Body Mass Index 39.41 05/02/2012 10:30 AM PMO BUSINESS ANALYST documented in this encounter Plan of Treatment Not on filedocumented as of this encounter Procedures Procedure Name Priority Date/Time Associated Comments Diagnosis ELECTROLYTE (CHEM 4) Routine 05/04/2012 4:58 AM R esults for this PANEL, S/P PMO BUSINESS ANALYST procedure are i n the results section. CBC WITHOUT Routine 05/04/2012 4:58 AM Results f or this DIFFERENTIAL, B PMO BUSINESS ANALYST procedure ar e in the results section. ELECTROLYTE (CHEM 4) Routine 05/03/2012 4:09 AM R esults for this PANEL, S/P PMO BUSINESS ANALYST procedure are i n the results section. CBC WITHOUT Routine 05/03/2012 4:09 AM Results f or this DIFFERENTIAL, B PMO BUSINESS ANALYST procedure ar e in the results section. DX KNEE UNILATERAL 2 Routine 05/02/2012 5:38 PM R esults for this VIEWS PMO BUSINESS ANALYST procedure are i n the results section. HEMOGLOBIN (HGB), Routine 05/02/2012 5:35 PM Resu lts for this POCT, B PMO BUSINESS ANALYST procedure are i n the results section. documented in this encounter Results Electrolyte (Chem 4) Panel (05/04/2012 4:58 AM PMO BUSINESS ANALYST) Analysis Performed At Patho logist Time Signature Chloride, S 108 100 - 108 [facility] MMOL/L [facility] HX Bicarbonate, 27 22 - 29 [facility] P/S MMOL/L [facility] eGFR-Black/Afri >60 >60 [facility] can Northern Irish ML/MIN/BSA [facility] BUN (Blood Urea 14 6 - 21 [facility] Nitrogen), S MG/DL [facility] Sodium, S 143 135 - 145 [facility] MMOL/L [facility] Potassium, S 4.6 3.6 - 5.2 [facility] MMOL/L [facility] Creatinine 0.9 0.6 - 1.1 [facility] MG/DL [facility] eGFR >60 >60 [facility] Non-Black/Afric ML/MIN/BSA LABORATORIES - [facility] Anion Gap 8 7 - 15 [facility] Glucose, S 104 70 - 140 [facility] MG/DL [facility] Specimen Anatomical Collection Method Collection Time Receive d Time (Source) Location / / Volume Laterality 05/04/2012 4:58 AM 3 4:58 PMO BUSINESS ANALYST AM PMO BUSINESS ANALYST Jose Enrique Bailey M.D. LAB BLOOD ADD-ON Performing Organization Address City/[facility] Code Phon e Number [facility]ATORIES - [address] [place] [phone] [facility] (ABNORMAL) CBC without Differential (05/04/2012 4:58 AM PMO BUSINESS ANALYST) Patholo gist Method Time Signature Erythrocytes 3.39 (L) 3.90 - [facility] 5.03 LABORATORIES - X10(12)/L [facility] MCV 89.4 81.6 - [facility] 98.3 FL LABORATORIES - [facility] Leukocytes 6.4 3.5 - [facility] 10.5 LABORATORIES - X10(9)/L [facility] Hemoglobin 9.8 (L) 12.0 - [facility] 15.5 G/DL LABORATORIES - [facility] Hematocrit 30.3 (L) 34.9 - [facility] 44.5 % LABORATORIES - [facility] RBC Distrib 13.8 11.9 - [facility] Width 15.5 % LABORATORIES - [facility] Platelet Count 168 150 - 450 [facility] X10(9)/L LABORATORIES - [facility] Specimen Anatomical Collection Method Collection Time Receive d Time (Source) Location / / Volume Laterality 05/04/2012 4:58 AM 3 4:58 PMO BUSINESS ANALYST AM PMO BUSINESS ANALYST Jose Enrique Bailey M.D. LAB BLOOD ADD-ON Performing Organization Address City/[facility] Code Phon e Number [facility] - [address] [place], [place] [address] [facility] Electrolyte (Chem 4) Panel (05/03/2012 4:09 AM PMO BUSINESS ANALYST) Analysis Performed At Path logist Time Signature Sodium, S 141 135 - 145 [facility] MMOL/L LABORATORIES - [facility] Potassium, S 4.5 3.6 - 5.2 [facility] MMOL/L LABORATORIES - [facility] Creatinine 0.8 0.6 - 1.1 [facility] MG/DL LABORATORIES - [facility] eGFR >60 >60 [facility] Non-Black/Afric ML/MIN/BSA LABORATORIES - an Northern Irish [facility] eGFR-Black/Afri >60 >60 [facility] can Northern Irish ML/MIN/BSA LABORATORIES - [facility] BUN (Blood Urea 13 6 - 21 [facility] Nitrogen), S MG/DL LABORATORIES - [facility] Anion Gap 8 7 - 15 [facility]ORATORIES - [facility] Glucose, S 127 70 - 140 [facility] MG/DL LAB[facility]ATORIES - [facility] Chloride, S 107 100 - 108 [facility] MMOL/L LABORATORIES - [facility] HX Bicarbonate, 26 22 - 29 [facility] P/S MMOL/L LABORATORIES - [facility] Specimen Anatomical Collection Method Collection Time Receive d Time (Source) Location / / Volume Laterality 05/03/2012 4:09 AM 3 4:09 PMO BUSINESS ANALYST AM PMO BUSINESS ANALYST Cleve Ni M.D. LAB BLOOD ADD-ON Performing Organization Address City/[facility] Code Phon e Number [facility] - [address] [place] [phone] [facility] (ABNORMAL) CBC without Differential (05/03/2012 4:09 AM PMO BUSINESS ANALYST) [facility] Method Time Signature Hemoglobin 10.9 (L) 12.0 - [facility] 15.5 G/DL LABORATORIES - [facility] Hematocrit 33.9 (L) 34.9 - [facility] 44.5 % LABORATORIES - [facility] RBC Distrib 13.2 11.9 - [facility] Width 15.5 % LABORATORIES - [facility] Platelet Count 197 150 - 450 [facility] X10(9)/L LABORATORIES - [facility] Erythrocytes 3.83 (L) 3.90 - [facility] 5.03 LABORATORIES - X10(12)/L [facility] MCV 88.5 81.6 - [facility] 98.3 [place] LABORATORIES - [facility] Leukocytes 7.6 3.5 - [facility] 10.5 LABORATORIES - X10(9)/L [facility] Specimen Anatomical Collection Method Collection Time Receive d Time (Source) Location / / Volume Laterality 05/03/2012 4:09 AM 3 4:09 PMO BUSINESS ANALYST AM PMO BUSINESS ANALYST Cleve Ni M.D. LAB BLOOD ADD-ON Performing Organization Address City/[facility] Code Phon e Number [facility] - [address] [place] [phone] [facility] DX Knee 2 Views (05/02/2012 5:38 PM PMO BUSINESS ANALYST) Anatomical Region Laterality Modality Lower Extremity, Knee N/A Radiographic Imagi ng Specimen (Source) Anatomical Collection Method Collection Time Re ceived Time Location / / Volume Laterality 05/02/2012 5:38 PM PMO BUSINESS ANALYST Narrative 05/02/2012 11:03 PM PMO BUSINESS ANALYST 02-May-2012 17:38:00 ??Exam: R Knee 2vw AP/Lat Indications: Post Op: Right knee Gonarth rosis. Right knee arthroplasty total ORIGINAL REPORT - 02-May-2012 20:39:00 Right Knee 2vw AP/Lat: Negative for postoperative purposes. Sin ce 04/27/2012, new right TKA with expected postoperative changes and hardware well seated. Surgical drain overlying the right knee. Remainder unremarkable. Electronically signed by: ?? Sandy Rogel MD [phone] 02-May-2012 20:39 I have reviewed the films/images and agr ee with the above interpretation. Electronically signed by: ?? Jovanni Brian MD [phone] 3 23:03 Procedure Note Jovanni Brian M.D. - 06/25/2017Fo rmatting of this note might be different from the original. 02-May-2012 17:38:00 Exam: R Knee 2vw AP /Lat Indications: Post Op: Right knee Gonarth rosis. Right knee arthroplasty total ORIGINAL REPORT - 02-May-2012 20:39:00 Right Knee 2vw AP/Lat: Negative for postoperative purposes. Sin ce 04/27/2012, new right TKA with expected postoperative changes and hardware well seated. Surgical drain overlying the right knee. Remainder unremarkable. Electronically signed by: Sandy Rogel MD [phone] 02-May-2012 20:39 I have reviewed the films/images and agr ee with the above interpretation. Electronically signed by: Jovanni Brian MD [phone] 23:03 Cleve Ni M.D. [facility] DIAGNOSTIC IMAGING PROCE DURES Hemoglobin (HGB), POCT (05/02/2012 5:35 PM PMO BUSINESS ANALYST) athologist Signature Hemoglobin, B 12.2 12.0 - [facility] 15.5 G/DL LABORATORIES - [facility] Specimen Anatomical Collection Method Collection Time Receive d Time (Source) Location / / Volume Laterality 05/02/2012 5:35 PM 3 5:35 PMO BUSINESS ANALYST PM PMO BUSINESS ANALYST Jhonathan Cali M.D. LAB POCT ORDERABLES - DEVICE Performing Organization Address City/State/ZIP Code Phon e Number [facility] - [address] [place], [place] [address] [facility] documented in this encounter Visit Diagnoses Not on filedocumented in this encounter
--- OUTSIDE RECORDS SUMMARY | 2022-02-13 12:15 | XMS_ITS | Encounter Summary ---
:1950 Author Organization [facility] Address [address] [place] [address] Care Team Providers Name Role Phone Unavailable Primary Care Provider Unavailable Encounter Details Date Type Department Care Team Description 05/02/2012 Hospital Encounter HX NO MAPPING Kaiden Farr R.Ph. [address] [place], [place] [phone] Social History Tobacco Use Types Packs/Day Years [...] or relatives? How often do you attend jain or yarsanism More than 4 time s per year 10/07/2020 services? Do you belong to any clubs or organizations No 10/07/2020 such as jain groups, unions, fraternal or athletic groups, or [...] or slept in a fdc (including now)? 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
--- OUTSIDE RECORDS SUMMARY | 2022-02-13 12:15 | XMS_ITS | Encounter Summary ---
:1950 Author Organization [facility] Address [address] [place] [address] Care Team Providers Name Role Phone Unavailable Primary Care Provider Unavailable Encounter Details Date Type Department Care Team Description 12/08/2017 Ancillary Procedure Department of Orthopedic Surgery Social History Tobacco Use Types Packs/Day Years [...] or relatives? How often do you attend adventism or mosque More than 4 time s per year 10/07/2020 services? 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 documented in this encounter Results ORTHOPEDIC SURGERY IMAGE EXAM (12/08/2017 12:35 PM CDT) Specimen (Source) Anatomical Collection Method Collection Time Re ceived Time Location / / Volume Laterality 12/08/2017 12:32 PM CDT Narrative [facility] - 12/08/2017 12:35 PM CDT This order has been created and auto-finalized [...]
--- OUTSIDE RECORDS SUMMARY | 2022-02-13 12:15 | XMS_ITS | Encounter Summary ---
:1950 Author Organization [facility] Address [address] [place] [address] Care Team Providers Name Role Phone Unavailable Primary Care Provider Unavailable Encounter Details Date Type Department Care Team Description 08/11/2017 Office Visit Department of Suhas Brown I., Aftercare Total Hip Orthopedic Surgery in M.D. 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 - 08/11/2017 11:45 AM CDT HISTORY OF PRESENT ILLNESS Patient returns today just over 5 years out from right total knee and just over 2 years for her lefthip, and is doing great overall. The knee is much better than before surgery. She had some difficulties with her hip postoperatively including dislocation and pulmonary embolism, but is doing much better today. She is having no major issues. Her left knee has been bothering her more now and she is interested in getting this fixed up with a total knee replacement this fall. PHYSICAL EXAMINATION Musculoskeletal: Right knee has great range of motion from 0 to 125 degrees. Left knee has range of motion from 0-115 degrees. She has medial joint line tenderness. On the right she has no evidence of varus, valgus, or AP instability. Her hip range of motion on the left is painless. Gait: Ambulates without a moderate Trendelenburg gait. Knee sheet filled out. IMPRESSION/REPORT/PLAN IMAGING STUDIES X-rays of the right TKA look great. No evidence of loosening or wear. Alignment is satisfactory. Herhip x-rays look good as well. She does have evidence of left knee end-stage arthritis involving mostly the medial compartment but with some lateral compartment and patellofemoral disease as well. IMPRESSION #1 Satisfactory recheck status post right total knee arthroplasty 2. Satisfactory check status post left total hip arthroplasty 3. Left knee end-stage arthritis, [id number] I am very pleased with the patient's progress. The knee and hip continue to function quite well. We will tentatively hold a date for her left total knee replacement this November. I would like to see the patient back the day before surgery. We had a good discussion regarding ongoing care, activity rec ommendations, and follow-up. All questions were answered. DIAGNOSES #1 Satisfactory recheck status post right total knee arthroplasty documented in this encounter Plan of Treatment Not on filedocumented as of this encounter Visit Diagnoses Diagnosis Aftercare Total Hip Arthroplasty - Prima ry documented in this encounter
--- OUTSIDE RECORDS SUMMARY | 2022-02-13 12:15 | XMS_ITS | Encounter Summary ---
:1950 Author Organization [facility] Address [address] [place] [address] Care Team Providers Name Role Phone Unavailable Primary Care Provider Unavailable Reason for Referral Outpatient (Routine) - Closed Specialty Diagnoses / Procedures Referred By Contact Refer red To Contact Vascular Medicine Diagnoses Thrombosis Deep Vein [facility] [address] [place] [phone] Referral ID Status Reason Start Date Expiration Date Visits Requ ested Visits Authorized [id number] Closed 08/16/2017 02/12/2018 1 1 Encounter Details Date Type Department Care Team Description 08/16/2017 Clinical Communication Department of Suhas Brown I., Orthopedic Surgery in [place], [place] [address] [place] [address] [place] [phone] Social History Tobacco Use Types Packs/Day Years [...] or relatives? How often do you attend mandaeism or yazidism More than 4 time s per year 10/07/2020 services? Do you belong to any clubs or organizations No 10/07/2020 such as mandaeism groups, unions, fraternal or athletic groups, or [...] place to sleep or slept in a halfway (including now)? 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 Miscellaneous Notes Telephone Encounter - Maia Fonseca - 08/16/2017 10:52 AM CDT Sign orders documented in this encounter Plan of Treatment Scheduled Referrals Name Type Priority Associated Order Schedule Diagnoses Vascular Medicine - Outpatient Referral Routine Thrombosis Alice medina Expected: Thrombophilia consult Vein Personal 12/08 (clinic) History (Approximate), Expires: 08/16/2020 documented as of this encounter Results PT (Prothrombin Time) with INR (12/08/2017 9:01 AM CDT) [facility] gist Method Time Signature Prothrombin 12.0 9.4 - 12.5 12/08/2017 [facility] Time, P sec 9:54 AM CDT LAB[facility]ATORIES - [facility] INR 1.1 0.9 - 1.1 12/08/2017 [facility] 9:54 AM CDT [facility]ATOR[facility] - [facility] Comment: ----ADDITIONAL INFORMATION---- Standard intensity warfarin therapeutic range: 2.0 to 3.0 ?? High intensity warfarin therapeutic rang e: 2.5 to 3.5 Specimen Anatomical Collection Method Collection Time Receive d Time (Source) Location / / Volume Laterality Blood (Blood, 12/08/2017 9:01 AM 12/09/19 18 9:31 Venous) CDT AM CDT Sneha Moreno P.A.-C., M.S. LAB BLOOD ADD-ON Performing Organization Address City/State/ZIP Code Phon e Number [facility] LABORATORIES - [address] [place], [place] [address] [facility] documented in this encounter Visit Diagnoses Diagnosis Thrombosis Deep Vein Personal History - Primary documented in this encounter
--- OUTSIDE RECORDS SUMMARY | 2022-02-13 12:15 | XMS_ITS | Encounter Summary ---
:1950 Author Organization [facility] Address [address] [place] [address] Care Team Providers Name Role Phone Unavailable Primary Care Provider Unavailable Reason for Visit Outpatient (Routine) - Closed Specialty Diagnoses / Procedures Referred By Contact Refer red To Contact Vascular Medicine Diagnoses Thrombosis Deep Vein [facility] [address] [place] [address] Referral ID Status Reason Start Date Expiration Date Visits Requ ested Visits Authorized [id number] Closed 08/16/2017 02/12/2018 1 1 Encounter Details Date Type Department Care Team Description 12/08/2017 Comprehensive Visit Department of Anika Rolon icoagulant Therapy (Primary Dx); Vascular Medicine Gina Kelley, M. S. Thrombosis Deep Vein Personal History in [address] [place] [phone] [place], [place] [phone] (Work) [phone] Social History Tobacco Use Types Packs/Day Years [...] or relatives? How often do you attend mu-ism or mosque More than 4 time s per year 10/07/2020 services? 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 - 12/08/2017 1:00 PM CDT SUBJECTIVE Referring Provider: Sneha Moreno P.A.-C., M.S. Chief Complaint/Reason for Visit Lesly procedural anticoagulation recommendations History of Present Illness Ms. Mindi Caba is a very pleasant 67 y.o. female who presents to the [facility] for lesly procedural anticoagulation recommendations. Patient's medical history significant [...] 67-year-old female referred to Thrombophilia department for lesly procedural anticoagulation recommendations. She will be undergoing [...] in counselin minutes. documented in this encounter Plan of Treatment Not on filedocumented as of this encounter Visit Diagnoses Diagnosis Anticoagulant Therapy - Primary Thrombosis Deep Vein Personal History documented in this encounter
--- OUTSIDE RECORDS SUMMARY | 2022-02-13 12:15 | XMS_ITS | Encounter Summary ---
:1950 Author Organization [facility] Address [address] [place] [address] Care Team Providers Name Role Phone Unavailable Primary Care Provider Unavailable Reason for Visit Outpatient (Routine) - Closed Specialty Diagnoses / Procedures Referred By Contact Refer red To Contact General Surgery Diagnoses Other Specified [facility]th[facility] [address] [place] [phone] Referral ID Status Reason Start Date Expiration Date Visits Requ ested Visits Authorized [id number] Closed 08/11/2017 02/07/2018 1 1 Encounter Details Date Type Department Care Team Description 12/08/2017 Comprehensive Visit Preoperative Jennifer Moreno, PTomy., M.S. [address] [place] [phone] Preanesthetic Medical Exam (Primary Dx); Evaluation Center in Rayna Jean M.D., M.P.H. 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 - 12/08/2017 8:00 AM CDT Preoperative Medical Evaluation Patient Name: Mindi Caba Age: 67 y.o. Date of : 1950 Patient [address]: [address] [place] [phone] Primary Care Provider: No primary care provider on file. Referring Physician: Sneha Moreno P.A.-C., M.S. Pending Procedure: Left total knee arthroplasty Surgeon: Kevin The following portions of the patient's history were reviewed and updated as appropriate: allergies,current medications, outpatient medications, family history, medical history, social history, surgical history and problem list. Preoperative assessment questions reviewed and completed Constitutional: Negative for fatigue and fever. Respiratory: Negative for dyspnea and wheezing. Cardiovascular: Negative for chest pain, pressure or tightness, swelling in the legs or feet and rapid or fluttering heart beat. Musculoskeletal: Positive for arthralgias and pain or stiffness in the joints. Neurological: Positive for weakness in arms or legs. Negative for seizures and loss of consciousness. OBJECTIVE PHYSICAL EXAMINATION Airway (HEENT) Mallampati: II TM Distance: >3 FB Neck ROM: Full Cardiovascular Rhythm: Regular Rate: Normal Cardiovascular Assessment: Normal Functional Capacity: >4 METS Pulmonary Pulmonary Assessment: Clear Neurological Neurologic Assessment: Alert and oriented X 3 Dental Dental Assessment: Dentition intact General / Constitutional Constitutional Assessment: Generalized obesity Assessment / Plan Patient medically optimized for planned procedure: Yes Surgery Specific Risk Classification: Low Risk / Elevated Risk: Low Risk #1 Other Specified Arthritis Left Knee #2 Preanesthetic Medical Exam #3 Cardiac Vascular Disease Screening #4 Thrombosis Deep Vein Personal History #5 Morbid Severe Obesity Due To Excess Calories (HCC) #6 Restless Leg Syndrome #7 Sleep Apnea #8 Hypothyroidism #9 Surgery Bariatric 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 female who presents for preanesthesia medical consultation prior to planned left total knee arthroplasty on 12/09/17. Past medical history reviewed in detail with the patient. She endorses being able to walk up a flight of stairs or city block without cardiopulmonary limitations, meeting >4 METs. Pt states her asthma is mild and mostly associated with seasonal allergens; she has not needed her rescue inhaler in several months. She has no PFTs in the EMR. She has had multiple general anesthetics in the past including for her right TKA 5 years ago and left ELSY 2 years ago which have been uneventful. She has multiple documented grade 1 airways. Her postoperative course following her ELSY was complicated by provoked pulmonary embolism for which she took Coumadin for 1 year. She has not had any history of unprovoked DVT/PEs. Her EKG today shows NSR. Anesthetic plan was discussed in general terms including the possibility of general, spinal, and regional anesthesia. We discussed that anesthetic management would be determined by the responsible anesthesiologist on the day of surgery. NPO guidelines reviewed. Pt drinks 1-2 cups of coffee per day andwas encouraged to drink her usual black coffee up to 2 hours prior to her planned procedure. Medication instructions reviewed. All questions answered to patient's satisfaction. CBC, Cr, type and screen, and baseline INR will be drawn today. Case was discussed with JESSICA Motta physician anesthesiologist, who agreed with above plan. documented in this encounter Plan of Treatment Not on filedocumented as of this encounter Procedures Procedure Name Priority Date/Time Associated Comments Diagnosis PROTHROMBIN TIME Routine 12/08/2017 9:01 AM Thrombosis Deep Re sults for this (PT), P CDT Vein Personal procedure are in History the results section. CBC WITHOUT Routine 12/08/2017 9:01 AM Other Specified Result s for this DIFFERENTIAL, B CDT Arthritis Left Knee proce dure are in the results section. TYPE AND SCREEN Routine 12/08/2017 9:01 AM Other Specified Res ults for this CDT Arthritis Left Knee procedur e are in the results section. CREATININE WITH EGFR, Routine 12/08/2017 9:00 AM Other Specifi ed Results for this S/P CDT Arthritis Left Knee procedur e are in the results section. ECG Routine 12/08/2017 7:58 AM Other Specified Result s for this CDT Arthritis Left K nee procedure are in Preanesthetic the results Medical Exam section. Cardiac Vascular Disease Screening documented in this encounter Results PT (Prothrombin Time) with INR (12/08/2017 9:01 AM CDT) [facility] Method Time Signature Prothrombin 12.0 9.4 - 12.5 12/08/2017 [facility] Time, P sec 9:54 AM CDT [facility] INR 1.1 0.9 - 1.1 12/08/2017 [facility] 9:54 AM CDT [facility] Comment: ----ADDITIONAL INFORMATION---- Standard intensity warfarin therapeutic range: 2.0 to 3.0 ?? High intensity warfarin therapeutic rang e: 2.5 to 3.5 Specimen Anatomical Collection Method Collection Time Receive d Time (Source) Location / / Volume Laterality Blood (Blood, 12/08/2017 9:01 AM 12/09/19 18 9:31 Venous) CDT AM CDT Sneha Moreno P.A.-C., M.S. LAB BLOOD ADD-ON Performing Organization Address City/[facility] Code Phon e Number [facility] LABORATORIES - [address] [place] [phone] [facility] Type and screen (12/08/2017 9:01 AM CDT) [facility] Method Time Signature ABORh AB Pos Not 12/08/2017 [facility] applicable 11:20 AM LABORATORIES - CDT [facility] Antibody Negative Negative 12/08/2017 [facility] Screen 11:34 AM LABORATORIES - CDT [facility] Type & Screen [id number] 12/08/2017 [facility] Expiration 11:20 AM LABORATORIES - CDT [facility] Specimen Anatomical Collection Method Collection Time Receive d Time (Source) Location / / Volume Laterality Blood (Blood, 12/08/2017 9:01 AM 12/09/19 18 Venous) CDT 10:30 AM CDT Sneha Moreno P.A.-C., M.S. LAB BLOOD BANK TEST ORDER DIANA Performing Organization Address City/[facility] Code Phon e Number [facility] LABORATORIES - [address] [place] [phone] [facility] CBC without Differential (12/08/2017 9:01 AM CDT) [facility] Method Time Signature Hemoglobin 13.7 11.6 - 12/08/2017 [facility] 15.0 g/dL 9:44 AM CDT LABORATORIES - [facility] Hematocrit 42.7 35.5 - 12/08/2017 [facility] 44.9 % 9:44 AM CDT LABORATORIES - [facility] Erythrocytes 4.70 3.92 - 12/08/2017 [facility] 5.13 9:44 AM CDT LABORATORIES - x10(12)/L [facility] MCV 90.9 78.2 - 12/08/2017 [facility] 97.9 fL 9:44 AM CDT LABORATORIES - [facility] RBC Distrib Width 13.6 12.2 - 12/08/2017 [facility] 16.1 % 9:44 AM CDT LABORATORIES - [facility] Platelet Count 246 157 - 371 12/08/2017 [facility] x10(9)/L 9:44 AM CDT LABORATORIES - [facility] Leukocytes 7.1 3.4 - 9.6 12/08/2017 [facility] x10(9)/L 9:44 AM CDT LABORATORIES - [facility] Specimen Anatomical Collection Method Collection Time Receive d Time (Source) Location / / Volume Laterality Blood (Blood, 12/08/2017 9:01 AM 12/09/19 18 9:31 Venous) CDT AM CDT Sneha Moreno P.A.-C., M.S. LAB BLOOD ADD-ON Performing Organization Address City/[facility] Phon e Number [facility] LABORATORIES - [address] [place] [phone] [facility] Creatinine with Estimated GFR (MDRD) (12/08/2017 9:00 AM CDT) Analysis Performed At Patho logist Time Signature Creatinine 0.89 0.59 - 12/08/2017 [facility] 1.04 mg/dL 10:12 AM CDT [facility] eGFR-Non 68 >=60 12/08/2017 [facility] Black/ mL/min/BSA 10:12 AM CDT LABORATORIES [facility] Comment: ----ADDITIONAL INFORMATION---- Estimated GFR calculated using the 2009 CKD_EPI creatinine equation. eGFR-Black/ 79 >=60 mL/min/BSA 12/08/2017 10:1 2 [facility] CDT [facility] Comment: ----ADDITIONAL INFORMATION---- Estimated GFR calculated using the 2009 CKD_EPI creatinine equation. Specimen Anatomical Collection Method Collection Time Receive d Time (Source) Location / / Volume Laterality Blood (Blood, 12/08/2017 9:00 AM 12/09/19 18 9:31 Venous) CDT AM CDT Sneha Moreno P.A.-C., M.S. LAB BLOOD ADD-ON Performing Organization Address City/[facility] Phon e Number [facility] LABORATORIES - [address] [place] [phone] [facility] ECG 12 Lead (12/08/2017 7:58 AM CDT) P athologist Signature Ventricular Rate 60 BPM MUSE ECG/Min MD Interval 142 ms MUSE QRSD Interval 90 ms MUSE QT Interval 436 ms MUSE QTC Interval 436 ms MUSE P [place] 40 degrees MUSE R [place] 33 degrees MUSE T Wave [place] 11 degrees MUSE Specimen Anatomical Collection Method Collection Time Receive d Time (Source) Location / / Volume Laterality 12/08/2017 7:58 AM 8 8:05 CDT AM CDT Impressions MUSE - 12/08/2017 8:05 AM CDT Normal sinus rhythm Normal ECG When compared with ECG of 17-JUL-2015 08 :03, No significant change was found Narrative This result has an attachment that is no t available. Jess Martínez M.D. ECG ORDERABLES Performing Organization Address City/State/ZIP Code Phon e Number MUSE MUSE NA documented in this encounter Visit Diagnoses Diagnosis Preanesthetic Medical Exam - Primary Other Specified Arthritis Left Knee Cardiac Vascular Disease Screening Thrombosis Deep Vein Personal History documented in this encounter
--- OUTSIDE RECORDS SUMMARY | 2022-02-13 12:15 | XMS_ITS | Encounter Summary ---
:1950 Author Organization [facility] Address [address] [place] [address] Care Team Providers Name Role Phone Unavailable Primary Care Provider Unavailable Encounter Details Date Type Department Care Team Description 07/18/2015 - Hospital Encounter HX RST UNIT 9-2 07/20/2015 ORTHOPEDICS Social History Tobacco Use Types Packs/Day [...] How often do you attend baptist or hinduism More than 4 time s per year [...] to sleep or slept in a senior care (including now)? 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 Pulse 93 07/20/2015 1:09 PM Value from artplus. CDT Temperature - - Respiratory Rate 16 07/20/2015 1:08 PM Value from Betsey hartplus. CDT Oxygen Saturation - - Inhaled Oxygen - - Concentration Weight 123 kg (271 lb 9.7 07/18/2015 9:05 AM oz) CDT Height 164 cm (5' 4.57) 07/18/2015 9:05 AM CDT Body Mass Index 45.81 07/18/2015 9:05 AM CDT documented in this encounter Medications at Time [...] Date/Time Associated Comments Diagnosis CBC WITHOUT Routine 07/20/2015 5:06 AM Results f or this DIFFERENTIAL, B CDT procedure ar e in the results section. ELECTROLYTE (CHEM 4) Routine 07/19/2015 4:44 AM R esults for this PANEL, S/P CDT procedure are i n the results section. CBC WITHOUT Routine 07/19/2015 4:44 AM Results f or this DIFFERENTIAL, B CDT procedure ar e in the results section. BONE DONOR SCREEN TEST Routine 07/19/2015 4:43 AM Results for this SET CDT procedure are i n the results section. DX HIP AND PELVIS LEFT Routine 07/18/2015 5:19 PM Results for this 2+ VIEWS CDT procedure are i n the results section. DX HIP LEFT Routine 07/18/2015 4:02 PM Results f or this INTRAOPERATIVE CDT procedure are in the results section. HX MICROBIOLOGY REPORTS Routine 07/18/2015 3:03 PM Results for this CDT procedure are i n the results section. STAPHYLOCOCCUS AUREUS, Routine 07/17/2015 11:20 R esults for this PCR AM CDT procedure are i n the results section. documented in this encounter Results (ABNORMAL) CBC without Differential (07/20/2015 5:06 AM CDT) [facility] Signature Erythrocytes 3.05 (L) 3.90 - [facility] 5.03 LABORATORIES - X10(12)/L [facility] MCV 91.8 81.6 - [facility] 98.3 FL LABORATORIES - [facility] Hemoglobin 9.1 (L) 12.0 - [facility] 15.5 G/DL LABORATORIES - [facility] Hematocrit 28.0 (L) 34.9 - [facility] 44.5 % [facility] - [facility] RBC Distrib 14.6 11.9 - [facility] Width 15.5 % [facility] - [facility] Platelet Count 222 150 - 450 [facility] X10(9)/L [facility] - [facility] Leukocytes 9.6 3.5 - [facility] 10.5 LABORATORIES - X10(9)/L [facility] Specimen Anatomical Collection Method Collection Time Receive d Time (Source) Location / / Volume Laterality 07/20/2015 5:06 AM 6 5:06 CDT AM CDT Ulisses Lacy M.D. LAB BLOOD ADD-ON Performing Organization Address City/State/ZIP Code Phon e Number [facility]ATORIES - [address] [place], [place] [address] [facility] Electrolyte (Chem 4) Panel (07/19/2015 4:44 AM CDT) Analysis Performed At Path logist Time Signature Chloride, S 102 98 - 107 [facility] MMOL/L [facility] HX Bicarbonate, 23 22 - 29 [facility] P/S MMOL/L LABORATORIES [facility] eGFR-Black/Afri >60 >60 [facility] can [place] ML/MIN/BSA LABORATORIES - [facility] BUN (Blood Urea 13 6 - 21 [facility] Nitrogen), S MG/DL LAB[facility]ATORIES - [facility] Sodium, S 138 135 - 145 [facility] MMOL/L LAB[facility]ATORIES - [facility] Potassium, S 4.4 3.6 - 5.2 [facility] MMOL/L LAB[facility]ATORIES - [facility] Creatinine 0.8 0.6 - 1.1 [facility] MG/DL LAB[facility]ATORIES - [facility] eGFR >60 >60 [facility] Non-Black/Afric ML/MIN/BSA LABORATORIES - an [place] [facility] Anion Gap 13 7 - 15 [facility]ATORIES - [facility] Glucose, S 111 70 - 140 [facility] MG/DL LAB[facility]IES - [facility] Specimen Anatomical Collection Method Collection Time Receive d Time (Source) Location / / Volume Laterality 07/19/2015 4:44 AM 6 4:44 CDT AM CDT Ulisses Lacy M.D. LAB BLOOD ADD-ON Performing Organization Address City/[facility]/ZIP Code Phon e Number [facility]ATORIES - [address] [place], [place] [address] [facility] (ABNORMAL) CBC without Differential (07/19/2015 4:44 AM CDT) [facility] gist Method Time Signature Erythrocytes 3.31 (L) 3.90 - [facility] 5.03 LABORATORIES - X10(12)/L [facility] MCV 90.6 81.6 - [facility] 98.3 FL LABORATORIES - [facility] Leukocytes 9.6 3.5 - [facility] 10.5 LABORATORIES - X10(9)/L [facility] Hemoglobin 9.7 (L) 12.0 - [facility] 15.5 G/DL LABORATORIES - [facility] Hematocrit 30.0 (L) 34.9 - [facility] 44.5 % LABORATORIES - [facility] RBC Distrib 14.4 11.9 - [facility] Width 15.5 % LABORATORIES - [facility] Platelet Count 209 150 - 450 [facility] X10(9)/L LABORATORIES - [facility] Specimen Anatomical Collection Method Collection Time Receive d Time (Source) Location / / Volume Laterality 07/19/2015 4:44 AM 6 4:44 CDT AM CDT Ulisses Lacy M.D. LAB BLOOD ADD-ON Performing Organization Address City/State/ZIP Code Phon e Number [facility]IES - [address] [place], [place] [address] [facility] Bone Donor Screen Test Set (07/19/2015 4:43 AM CDT) [facility] gist Method Time Signature HBsAg Screen Negative [facility] Donor LABORATORIES - [facility] Donor HBcore Negative [facility] Antibody LABORATORIES [facility] HX Hiv-1/-2, Negative [facility] Plus O Ab LABORATORIES - Screen Donor [facility] HTLV-I/-II Ab Negative [facility] Screen Donor LABORATORIES [facility] Syphilis Ab Negative [facility] Screen Donor LABORATORIES [facility] Comment: This test is done by the Treponema palli dum hemagglutination ? assay (TPHA) method. ? West Nile Virus PARTHA Donor, P Negative M [facility] Comment: Failure to detect WNV RNA does not rule out the ? possibility of West Nile virus infection . This result ? should be evaluated in the context of th e individual's ? risk factors and clinical findings. ? This test is done by the [employer] TaqScreen West Nile ? Virus Test([employer] [place], [place]). ? PARTHA MPX Individual Donor Screen Negative [facility] Comment: Failure to detect HIV, HCV or HBV by PCR does not rule ? out the possibility of infection. This r esult should be ? evaluated in the context of the individu al's risk ? factors and clinical findings. ? This test is done by the [employer]Screen MPX Test ? ([employer] [place], [place]). ? HCV Ab Screen Donor Negative [facility] Specimen Anatomical Collection Method Collection Time Receive d Time (Source) Location / / Volume Laterality 07/19/2015 4:43 AM 6 4:43 CDT AM CDT Ulisses Lacy M.D. LAB BLOOD NON ADD-ON Performing Organization Address City/State/ZIP Code Phon e Number [facility] - [address] [place] [phone] [facility] DX Hip And Pelvis Left 2+ Views (07/18/2015 5:19 PM CDT) Anatomical Region Laterality Modality Lower Extremity, Pelvis, Hip Left Radiographi c Imaging Specimen (Source) Anatomical Collection Method Collection Time Re ceived Time Location / / Volume Laterality 07/18/2015 5:19 PM CDT Impressions 07/18/2015 7:32 PM CDT Left ELSY. Left hip is negative for PO purposes. Partially visualized hardware in the sacrum. Electronically signed by: ?? Levy Pearce MD [phone] 18-Jul-2015 17:22 I have reviewed the films/images and agr ee with the above interpretation. Electronically signed by: ?? Joel Mcdonnell M.D. [phone] 18-Jul-2015 1 9:32 Narrative 07/18/2015 7:32 PM CDT 18-Jul-2015 17:19:00 ??Exam: Hip 2vw AP/Lat LT Indications: POST OP. Coxarthrosis. Left Hip Arthroplasty Total. ORIGINAL REPORT - 18-Jul-2015 17:22:00 EXAM: Left Hip 2vw AP/Lat: Procedure Note Joel Mcdonnell M.B., Ch.B. - 06/24/2017 18-Jul-2015 17:19:00 Exam: Hip 2vw AP/La t LT Indications: POST OP. Coxarthrosis. Left Hip Arthroplasty Total. ORIGINAL REPORT - 18-Jul-2015 17:22:00 EXAM: Left Hip 2vw AP/Lat: IMPRESSION: Left ELSY. Left hip is negati ve for PO purposes. Partially visualized hardware in the sacrum. Electronically signed by: Levy Pearce MD [phone] 18-Jul-2015 17:22 I have reviewed the films/images and agr ee with the above interpretation. Electronically signed by: Joel Mcdonnell M.D. [phone] 18-Jul-2015 1 9:32 Cleve Ni M.D. IMG DIAGNOSTIC IMAGING PROCE DURES DX Hip Left Intraoperative (07/18/2015 4:02 PM CDT) Anatomical Region Laterality Modality Lower Extremity, Hip N/A Radiographic Imagin g Specimen (Source) Anatomical Collection Method Collection Time Re ceived Time Location / / Volume Laterality 07/18/2015 4:02 PM CDT Impressions 07/18/2015 4:03 PM CDT Intraoperative image(s) taken during left ELSY. Electronically signed by: ?? Ramonita Oh MD [phone] 18-Jul-2015 16:03 Narrative 07/18/2015 4:03 PM CDT 18-Jul-2015 16:02:00 ??Exam: Hip Intra-op Prox Femur LT Indications: INTRA OP. Coxarthrosis. Lef t Hip Arthroplasty Total. Trial fitting ORIGINAL REPORT - 18-Jul-2015 16:03:00 EXAM: Left Hip Intra-op Prox Femur: Procedure Note Sammy Oh M.D. - 06/24/2017Forma tting of this note might be different from the original. 18-Jul-2015 16:02:00 Exam: Hip Intra-op Prox Femur LT Indications: INTRA OP. Coxarthrosis. Lef t Hip Arthroplasty Total. Trial fitting ORIGINAL REPORT - 18-Jul-2015 16:03:00 EXAM: Left Hip Intra-op Prox Femur: IMPRESSION: Intraoperative image(s) take n during left ELSY. Electronically signed by: Ramonita Oh MD [phone] 18-Jul-2015 16:03 Cleve Ni M.D. IMG DIAGNOSTIC IMAGING PROCE BIGG Microbiology Reports (07/18/2015 3:03 PM CDT) Specimen Anatomical Collection Method Collection Time Receive d Time (Source) Location / / Volume Laterality 07/18/2015 3:03 PM 6 5:25 CDT PM CDT Narrative [facility] - 08/01/2015 6:45 AM CDT 18-JUL-2015 BONE BANK BONE, FEMORAL HEAD LEFT ? SoftOrd# [id number] ?(Ordered 18-JUL-2015; Collec jacque 18-JUL-2015 15:03; Received 18-JUL-2015 17:24) ?[facility] ?BACTERIA CULTURE, DONOR ? (Reported 01-AUG-2015 06:45) FINAL ?No aerobic or anaerobic grow th after 14 days of incubation. Procedure Note 07/01/2017 18-JUL-2015 BONE BANK BONE, FEMORAL HEAD LEFT SoftOrd# [id number] (Ordered 18-JUL-2015; Collected 2015 15:03; Received 18-JUL-2015 17:24) [facility] BACTERIA CULTURE, DONOR (Reported 06:45) FINAL No aerobic or anaerobic growth after 14 days of incubation. Rene Abel M.D. LAB MICROBIOLOGY - GENERAL O RDERABLES Performing Organization Address City/State/ZIP Code Phon e Number [facility] - [address] [place], [place] [address] [facility] (ABNORMAL) Staphylococcus aureus PCR (07/17/2015 11:20 AM CDT) P athologist Signature Specimen . [facility] Source (Stap LABORATORIES - aureus PCR) [facility] Comment: NARES BILATERAL SWAB HX STAPHYLOCOCCUS AUREUS Positive (A) Not Applicable [facility] LABORATORIES PCR - [facility] Comment: ? ADDITIONAL INFORMATIO N ? Laboratory developed test. ? Specimen Anatomical Collection Method Collection Time Receive d Time (Source) Location / / Volume Laterality 07/17/2015 11:20 07/17/2015 AM CDT 11:20 AM CDT Ulisses Lacy M.D. LAB MICROBIOLOGY - GENERAL O RDERABLES Performing Organization Address City/State/ZIP Code Phon e Number [facility]IES - [address] [place], [place] [address] [facility] documented in this encounter Visit Diagnoses Not on filedocumented in this encounter
--- OUTSIDE RECORDS SUMMARY | 2022-02-13 12:15 | XMS_ITS | Encounter Summary ---
:1950 Author Organization [facility] Address [address] [place] [address] Care Team Providers Name Role Phone Unavailable Primary Care Provider Unavailable Encounter Details Date Type Department Care Team Description 07/18/2015 Hospital Encounter HX NO MAPPING Social History [...] or relatives? How often do you attend scientologist or yazidism More than 4 time s per year 10/07/2020 services? 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
--- OUTSIDE RECORDS SUMMARY | 2022-02-13 12:15 | XMS_ITS | Encounter Summary ---
:1950 Author Organization [facility] Address [address] [place] [address] Care Team Providers Name Role Phone Unavailable [...] or relatives? How often do you attend jew or nondenominational More than 4 time s per year 10/07/2020 services? Do you belong to any clubs or organizations No 10/07/2020 such as jew groups, unions, fraternal or athletic groups, or [...] place to sleep or slept in a alf (including now)? 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
--- OUTSIDE RECORDS SUMMARY | 2022-02-13 12:15 | XMS_ITS | Encounter Summary ---
:1950 Author Organization [facility] Address [address] [place] [address] Care Team Providers Name Role Phone Unavailable Primary Care Provider Unavailable Encounter Details Date Type Department Care Team Description 08/11/2017 Hospital Encounter Department of Tiffanie, Sneha Ceja, Pain Ankle Left Radiology, Brandon Fuentes M.S. [facility], in [address] [place] [id number] [place], [place] [phone] (Work) [phone] Social History Tobacco Use Types Packs/Day Years [...] or relatives? How often do you attend yazidism or uatsdin More than 4 time s per year 10/07/2020 services? Do you belong to any clubs or organizations No 10/07/2020 such as yazidism groups, unions, fraternal or athletic groups, or [...] place to sleep or slept in a intermediate (including now)? 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 [id number]-dt Take 1 tablet by 0 07/09/2020 ffeine [...] Name Priority Date/Time Associated Comments Diagnosis DX ANKLE LEFT 3+ RAD - Routine 08/11/2017 12:19 Pain Ankle Left Res ults for this VIEWS (most inpatients PM CDT procedure a re in and all the results outpatients) section. documented in this encounter Results DX Ankle Left 3+ Views (08/11/2017 12:19 [...] Sneha Moreno P.A.-C., M.S. IMG DIAGNOSTIC IMAGING AR OCEDURES documented in this encounter Visit Diagnoses Diagnosis Pain Ankle Left documented in this encounter
[2022-02-13 13:29] LABS: Chloride* 101 mmol/L (96-114)
[2022-02-13 13:30] LABS: Albumin* 4.6 g/dL (3.3-5.0); Potassium* 4.9 mmol/L (3.6-5.1); Sodium* 134 mmol/L (135-149)
[2022-02-13 13:33] LABS: Alanine Aminotransferase* 27 U/L (4-35); Alkaline Phosphatase* 93 U/L (40-150); Aspartate Amino Transferase* 29 U/L (12-35); Bilirubin Total* 0.5 mg/dL (0.1-1.5); Blood Urea Nitrogen* 19 mg/dL (7-30); Calcium* 9.6 mg/dL (8.4-10.6); Carbon Dioxide* 28 mmol/L (20-32); Estimated Glomerular Filt Rate 61 ml/min; Glucose* 101 mg/dL (60-115); Total Protein* 7.4 g/dL (6.0-8.3)
== END 2022-02-13 12:06 | disposition home or self-care (01) ==
LOC: NFLDREF 12:06
PROVIDERS: PCP Family Medicine; Visit Provider Family Medicine
DX: R10.12 Left upper quadrant pain (principal); R53.83 Other fatigue
CPT/HCPCS: 80053; 87086; 87186

== ENCOUNTER 2022-07-07 11:11 | Outpatient (CLI) | payer MEDICARE, BC, SELFPAY ==
--- NOTE | 2022-07-07 11:30 | CRLHL7_ITS ---
For Patients: As a result of the Century Cures Act, medical imaging exams and procedure reports are released immediately into your electronic medical record. You may view this report before your referring provider. If you have questions, please contact your health care provider. BILATERAL SCREENING MAMMOGRAM WITH COMPUTER-AIDED DETECTION AND TOMOSYNTHESIS TECHNIQUE: CC and MLO views were obtained. These mammographic images have been obtained using full-field digital technique. These mammographic images were interpreted with the benefit of computer-aided detection. Breast tomosynthesis was used in this interpretation. COMPARISON FILM: 02/04/21, 01/01/20, 11/15/18. FINDINGS: There are scattered areas of fibroglandular density. IMPRESSION: There is no radiographic evidence for malignancy. ASSESSMENT: BI-RADS Category 1: Negative RECOMMENDATION: Routine screening mammogram in 1 year. A lay language report of this examination will be provided to the patient. JOEL POON M.D. Diagnostic Radiologist [email or web address] Transcribed: 07/08/2022, 11:[address]/Dictated by: Joel Poon MD @ 07/07/2022 1:10:00 PM (Electronically Signed)
== END 2022-07-07 11:12 | disposition home or self-care (01) ==
PROVIDERS: PCP Family Medicine; Visit Provider Family Medicine
DX: Z12.31 Encounter for screening mammogram for malignant neoplasm of breast (principal)
CPT/HCPCS: 77063; 77067

== ENCOUNTER 2022-10-07 16:04 | Outpatient (CLI) | payer MEDICARE, BC, SELFPAY | END 2022-10-07 16:05 | disposition home or self-care (01) | LOC: NFLDREF 16:04 | PROVIDERS: PCP Family Medicine; Visit Provider Family Medicine | DX: R30.0 Dysuria (principal) | CPT/HCPCS: 87086 ==

== ENCOUNTER 2023-03-18 09:22 | Outpatient (CLI) | payer MEDICARE, BC, SELFPAY ==
--- OUTSIDE RECORDS SUMMARY | 2023-03-18 09:25 | XMS_ITS | Continuity of Care Document ---
Author Name Unknown Organization [facility] Address [address] [facility] [facility] [address] [place] [address] Phone Care Team Providers Care Haulage Boss Name Role Phone Rodney Hicks DO Unavailable Unavailable Allergies, Adverse Reactions, Alerts Substance Reaction Status Criticality MOLD EXTRACTS Active No Information Medications Medication Instructions Dosage Effective Dates (start - stop) Status Comments levothyroxine 137 mcg Tab take 1 tablet (137MCG) by oral route every day 137 MCG - Active Budeprion XL 300 mg 24 hr Tab take 1 tablet (300MG) by oral route every day - Active clonazepam 1 mg Tab take 1 1/2 tablets (1MG) by ORAL at bedtime - Active citalopram 20 mg Tab take 1 tablet (20MG ) by oral route every day 20 MG - Active Astelin 137 mcg Nasal Colp Aerosol spray 2 spray by intranasal route 2 times every day in each nostril - Active Flovent HFA 44 mcg/Actuation Aerosol Inhaler inhale 2 puff (88MCG) by inhalation route 2 times every day 88 MCG - Active Vitamin D 1,000 unit Cap take 1 by Oral route every day 1 - Active Procedures Procedure Date Inject Joint Large Fluoro Needle - Nonspine Lo Osm Contr Mat (200-249mg) Depomedrol 80mg Marcaine (1 mL = 1 Unit) Offic/outpt E&m New Mod-hi 45 1 Inject Joint Large Fluoro Needle - Nonspine Marcaine (1 mL = 1 Unit) Depomedrol 80mg Lo Osm Contr Mat (300-349mg) Advance Directives Directive Yes / No Effective Date File Name No Information Encounters Encounter Description Practice Location Reason(s) For Visit Diagnoses Date Provider Providers Copied on Encounter [facility], [address] [facility] [address], [place], [place], [id number], tel:[phone] [facility] No Information Fabiola Stevens. [address] [facility] [address], [place], [address], [place]. tel:[phone] Referring Provider: Maia Ceja, [address] [place], [address]. tel:[phone] Offic/outpt E&m New Mod-hi 45 [facility], [address] [facility] [address], [place], [place], [id number], [place] tel:[phone] [facility] No Information Rudolph Annalise Amaury. [address] [place] [address], [address], [place]. Referring Provider: Maia Ceja, [address] [place], [address]. tel:[phone] Family History Family Member Type Diagnosis Age At Onset No Information Payers Payer name Insurance type Covered libertarian ID Dakotah dela cruz(s) [facility] CI [id number] Social History Type Description Quantity Date Captured Comments Alcohol Use Details Caffeine Use Details Unknown Tobacco Use Status No Information Smoking Status Never Smoker Non-Smoking Tobacco Use Details : No Details Available : No Details Available Sex Female Chief Complaint And Reason For Visit No Information Reason For Referral Reason For Referral No Information History Of Present Illness Encounter Date Complaint History Of Prese nt Illness No Information Functional Status Date Functional Assessmen t No Information Instructions Date Instruction Additional Infor mation No Information Assessments Type Assessment Date No Information Patient Care Teams Name Effective Dates (start - stop) Status Members No Information
--- NOTE | 2023-03-18 11:12 | W.ANESCHARGE ---
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
--- NOTE | 2023-03-18 11:43 | W.ANESCHARGE ---
Anesthesia Charges Start Date/Time Anesthesia Start Date: 03/18/23 Anesthesia Start Time: 10:04 Stop Date/Time Anesthesia Stop Date: 03/18/23 Anesthesia Stop Time: 10:59 Summary Extremes of Age - Over 70 or under 1: MDA
== END 2023-03-18 09:23 | disposition home or self-care (01) ==
LOC: OP CLINIC 09:22
PROVIDERS: PCP Family Medicine; Visit Provider Surgery
DX: Z86.010 Personal history of colon polyps (principal); Z09 Encounter for follow-up examination after completed treatment for conditions other than malignant neoplasm
CPT/HCPCS: 00811; 00812; 45378; 99100; J2704

== ENCOUNTER 2023-07-13 11:23 | Outpatient (CLI) | payer MEDICARE, BC, SELFPAY ==
--- NOTE | 2023-07-13 11:30 | MM_ITS ---
Patient: CATE ALMONTE Facility:?[facility] Patient ID:?[id number] Site Patient ID:?[id number]. Site :?1950 Study:?XRay-Breast Bilateral 3D screening mammogram w/cad-07/13/2023 11:47:11 AM Ordering Physician:brett Final Report: BILATERAL SCREENING MAMMOGRAM WITH COMPUTER-AIDED DETECTION AND TOMOSYNTHESIS TECHNIQUE: CC and MLO views were obtained. These mammographic images have been obtained using full-field digital technique. These mammographic images were interpreted with the benefit of computer-aided detection. Breast Tomosynthesis was used in this interpretation. COMPARISON FILM: 07/07/22, 02/04/21, 01/01/20. FINDINGS: There are scattered areas of fibroglandular density. IMPRESSION: There is no radiographic evidence for malignancy. ASSESSMENT: BI-RADS Category 2: Benign RECOMMENDATION: Routine screening mammogram in 1 year. A lay language report of this examination will be provided to the patient. Joel Meehan M.D. Diagnostic Radiologist [email or web address] DSM/sp R& Transcribed: 6:49 p.m. SP/Dictated by: Joel Meehan MD @ 07/14/2023 11:10:00 AM Signed by:Debbie Meehan MD @07/15/2023 5:21:54 AM (Electronic Signature)
--- OUTSIDE RECORDS SUMMARY | 2023-07-13 11:32 | XMS_ITS | Data Portability ---
Author Name Unknown Address [address] [place] [address] Phone [phone] Organization [place] [facility], [employer] Address [address] [place] [address] Assessment Encounter Date Assessment Date Assessment LastModified by Organization Details LastModified Time 07/16/2022 07/16/2022 We discussed xrays, discussed orthotics, which she uses routinely but that do not help. We trialed Subiomed suspension. She wished to proceed with this as she could walk markedly improved and with a longer stride and improved balance. Less pain. W trialed subiomed today. Will dispense trial shoes and devices and ped pillows. [email or web address] Not available 07/17/2022 12:43:12 08/06/2022 08/06/2022 We dispensed Subiomed today size 10 with size extra depth shoes and ped pillows. SHe has existinf graphite orthotics that cause burning pain in her feet with use. Gait exam showed immediate improvement in posture and gait,. stride length increased, gait was more fluid, She commented she had a spring in her step. She could not wait to go walk. We spent 30 minutes of consultation time today discussing treatment with the patient. Not available 08/06/2022 19:34:32 09/24/2022 09/24/2022 We adjusted Subiomed today size 10 and dispenesed 2nsd set of shoes that fit well. Gait exam showed immediate improvement in posture and gait with addition of midfoot arch shimming b/l. stride length increased, gait was more fluid, She commented she had improved spring in her step. We spent 20 minutes of consultation time today discussing treatment with the patient. [email or web address] Not available 09/24/2022 10:23:40 Plan of Treatment Reminders Order Date Submit Date Provider Last Modified By Organization Details Last Modified Time Details Appointments None record ed. Lab None record ed. Referral None record ed. Procedures None record ed. Surgeries None record ed. Imaging XR, foot, 3 or more view 023 07/18/19 23 [facility], [address] [place] [address], [phone], 21:50:41 Medication Orders None record ed. Patient TargetsNo targets recorded. Patient InstructionsNo instructions recorded. Reason for Referral None Reported. Results Created Date Observation Date Name Description Value Unit Range Abnormal Flag LastModifiedBy Organization Detail LastModifiedTime 07/18/19 XR, foot, 3 or more view No observ ation record ed. [email or web address] [facility] [address] [place] [address], [phone], 07/17/2022 12:37:45 Result Notes None recorded. Procedures Surgical History None recorded. Imaging Results Imaging Date Name Status LastModified by Organiz ation Details LastModified Time 07/17/2022 XR, foot, 3 or more view active [email or web address], [id number], 07/17/2022 12:37:45 Procedure Notes None recorded. Medical Equipment None Reported. Allergies Allergen ID Allergen Name Allergen Category Reaction Reaction Severity Criticality Documentation Date Start Date Code Code System Note Provider Name and Address Organization Details Recorded Time 42036 cat dander environme nt Not available Not available Not available 07/17/2022 Vandana berumen [place] - [facility] 3 08:56:39 56357 house dust mite environme nt Not available Not available Not available 07/17/2022 Vandana berumen [place] See [facility] 3 08:56:51 91575 mold extract environme nt Not available Not available Not available 07/17/2022 11001 8 RxNorm Vandana berumen [place] - [facility] 3 08:56:57 80466 tree and shrub pollen environme nt,medica tion Not available Not available Not available 07/17/2022 Vandana berumen, [place] - [facility] 3 08:57:12 Medications Name Sig Start Date Stop Date Status Note LastModified by Organization Details LastModified Time oxybutynin chloride ER 10 mg tablet,exten ded release 24 hr TAKE 1 TABLET BY MOUTH TWICE DAILY active Not Available Not Available No t Available valacyclovir 1 gram tablet TAKE 2 TABLETS BY MOUTH EVERY 12 HOURS NEEDED FOR COLD SORES. USE NEEDED FOR COLD SORES. TAKE IMMEDIATELY 2 TABLETS AND THEN REPEAT THE DOSE IN 12 HOURS. USE 4 TABLETS PER COLD SORE. active Not Available Not Available No t Available ropinirole 2 mg tablet TAKE 1 TABLET BY MOUTH AT BEDTIME active Not Available Not Available No t Available cephalexin 500 mg capsule TAKE 1 CAPSULE BY MOUTH 4 TIMES DAILY FOR 7 DAYS active Not Available Not Available N ot Available simvastatin 20 mg tablet TAKE 1 TABLET BY MOUTH ONCE DAILY AT BEDTIME active Not Available Not Available No t Available mirtazapine 30 mg tablet TAKE 1 TABLET BY MOUTH ONCE DAILY AT BEDTIME FOR DEPRESSION active Not Available Not Available N ot Available levothyroxin e 150 mcg tablet TAKE 1 TABLET BY MOUTH ONCE DAILY active Not Available Not Available No t Available omeprazole 20 mg capsule,tariq yed release TAKE 1 CAPSULE BY MOUTH ONCE DAILY active Not Available Not Available No t Available montelukast 10 mg tablet active Not Available Not Available Not Available mirtazapine 15 mg tablet active Not Available Not Available Not Available azelastine 137 mcg (0.1 %) nasal spray aerosol USE 2 SPRAY(S) IN EACH NOSTRIL TWICE DAILY active Not Available Not Available Not Available albuterol sulfate HFA 90 mcg/actuatio n aerosol inhaler INHALE 2 PUFFS BY MOUTH EVERY 3 TO 4 HOURS NEEDED FOR SHORTNESS OF BREATH OR WHEEZING. active Not Available Not Available No t Available bupropion HCl XL 150 mg 24 hr tablet, extended release active Not Available Not Available Not Available GaviLyte-G 236 gram-22.74 gram-6.74 gram-5.86 gram oral solution TAKE 4000 ML BY MOUTH ONCE active Not Available Not Available No t Available Nasal Allergy 55 mcg spray aerosol USE 2 SPRAY(S) IN EACH NOSTRIL ONCE DAILY active Not Available Not Available N ot Available Vitals Date Recorded Body height Body mass index (BMI) Body weight Provider Name and Address Organization Details Last Updated DateTime 07/17/2022 165.1 cm 43.3 kg/m2 453817.02 g Vandana berumen [place] - [facility] 07/17/2022 08:56:32 Social History None recorded. Functional Status None recorded. Mental Status None recorded. Family History Nothing Reported. Medical History No medical history recorded. Gynecological HistoryNo gynecological history recorded. Obstetrics History GPAL:G 0 P 0 0 0 0 Past Encounters Encounter ID Performer Location Encounter Start Date Encounter Closed Date Diagnosis/Indication Diagnosis SNOMED-CT Code [id number] Shad Christensen DPM [facility] [address] [place] [phone] 07/16/2022 09:54:54 07/17/2022 13:02:54 Pain in left foot 41707360746927 7 Pain in right foot 61210 319977239 7 Chronic low back pain 27 9467059 Functional gait abnormality [id number] [address] [place] [phone] 08/06/2022 11:59:11 08/07/2022 16:34:27 Pain in left foot 64371103268667 7 Pain in right foot 83378 114009280 7 Antalgic gait 47135598 [id number] [facility] [address] [place] [id number] 09/24/2022 09:52:04 09/24/2022 11:12:40 Pain in left foot 67400922261088 7 Pain in right foot [address] 315487549 7 Antalgic gait 15221451 Health Concerns Section Related Observation LastModified by Organization Detai ls LastModified Time None Recorded Concern Status LastModified by Organization Details LastModified Time None Recorded Advance Directives Directive None Recorded Payers Encounter Date Sequence Insurance Name Policy Number Policy Lala Covered Member ID Lala Member ID Guarantor Name 09/24/2022 1 [facility] ([place] [id number] Mindi Caba [id number] Mindi Caba 08/06/2022 1 [place] [id number] Mindi Caba [id number] Mindi Gaonaadden 07/16/2022 1 [facility] [id number] Mindi Caba [id number] Mindi Caba Notes Date Note Type Note Provider Name and Address Organization Details Recorded Time 07/16/2022 text/html HPI Notes: increasing foot pain and difficulty walking for years. Fell off a step stool 5 years ago. Got orthotics and a couple steroid injections from Dr. Braga. Had back sx l45 fusion 20 years ago. B/L hips and knees replaced. Shad Christensen DPM [address] [place], [address], [facility] 07/17/2022 12:43:16 08/06/2022 text/html HPI Notes: Pt. has a history of foot pain, knee pain and postural symptoms making it difficult for her to walk. She would like to walk for exercise. Shad Christensen DPM [address] [place], [address], [facility] 08/06/2022 19:34:39 09/24/2022 text/html HPI Notes: Pt. has a history of foot pain, knee pain and postural symptoms making it difficult for her to walk. She would like to walk for exercise. SHe has been walking more and faster with Subiomed. She feels her stability has improved. Shad Christensen DPM [address] [place], [address], [facility] 09/24/2022 10:24:05 OBGyn Episode No OBEpisode recorded.
--- OUTSIDE RECORDS SUMMARY | 2023-07-13 11:32 | XMS_ITS | Continuity of Care Document ---
Author Name Unknown Organization [facility] Address [address] [place] [address] Phone Care Team Providers Care Folding Machine Setter Name Role Phone Rodney Hicks DO Unavailable [...] MG - Active Astelin 137 mcg Nasal [place] Aerosol spray 2 spray by intranasal route 2 times every day in each nostril - Active Flovent HFA 44 mcg/Actuation Aerosol Inhaler inhale 2 puff (88MCG) by inhalation route 2 times every day - Active Vitamin D 1,000 unit Cap [...] Providers Copied on Encounter [facility], [address], [place], [place], [id number], tel:[phone] [facility] No Information Fabiola Stevens. [address], [place], [address], [place]. tel:[phone] Referring Provider: Maia Ceja, [address] [facility] [place], [address]. tel:[phone] Offic/outpt E&m New Mod-hi [address] [facility], [address], [place], [place], [address], tel:[phone] [facility] No Information Rudolph Annalise Amaury. [address] [place] [address], [address], [place]. Referring Provider: Maia Ceja, [address] [place], [address]. tel:[phone] Family History Family Member Type Diagnosis Age At Onset No Information Payers Payer name Insurance type Covered libertarian ID Dakotah dela cruz(s) [facility] CI [id number] Social History Type Description Quantity Date Captured [...]
--- OUTSIDE RECORDS SUMMARY | 2023-07-13 11:32 | XMS_ITS | Clinical Summary ---
Author Name Unknown Organization [facility] Address [address] [place] [address] Care Team Providers Care Senior Mainframe Developer Name Role Phone Delphine Batista MD Primary Care Provider Source Comments You are receiving this document as you are listed as the primary care provider,follow-up provider, or the patient has been referred to you for consultation.This is in compliance with the Medicare and[facility] EHR Incentive Program,which states Providers who transition their patient to another setting of careor provider of care or refers their patient to another provider of care shouldprovide summary care record for each transition of care or referral. [facility] Allergies Active Allergy Reactions Criticality Noted Date Comments Dust Other, see comments 01/15/2021 Sinus issues Molds & Smuts Cough 01/15/2021 Sinus issues Other Other, see comments 01/15/2021 Perfumes - eyes water, cough Cat dander - sinus issues Pollen Extract Cough 01/15/2021 Medications Medication Sig Dispensed Refills Start Date End Date Status BUDEPRION XL 300 MG OR TB24 1 tablet daily Active ASTELIN 137 MCG/SPRAY NA SOLN 2 sprays in the morning Active PROAIR HFA 108 (90 BASE) MCG/ACT IN AERS Inhale 2 puffs by mouth every 4-6 hours as needed for breathing difficulties. Do not use more than 12 puffs in 24 hours. Active TYLENOL PM EXTRA STRENGTH 500-25 MG OR TABS 1 tablet daily Active FLUTICASONE PROPIONATE HFA 44 MCG/ACT IN AERO 1 spray twice daily Active cholecalciferol (VITAMIND3) 2000 UNITS tablet Take 1 tablet by mouth daily (every 24 hours). Indications: PREVENTION OF VITAMIN D DEFICIENCY 03/09/2012 Active estrogens, conjugated (PREMARIN) 0.625 MG/GM vaginal cream Insert 1 Applicatorful vaginally. 09/18/2013 Active oxybutynin (DITROPANXL) 10 MG 24 hour release tablet Take 10 mg by mouth. Active Zinc Acetate 25 MG Take 50 mg by mouth. Acti ve Famotidine-Ca Carb-Mag Hydrox 10-800-165 MG Chew and swallow 1 Tablet by mouth daily. 10/28/2019 Active fexofenadine (CECI) 180 MG tablet 2019 Active guaiFENesin (MUCINEX) 600 MG 12 hour release tablet Take 600 mg by mouth at bedtime as needed. 01/13/2021 Active Melatonin 5 MG 01/13/2021 Active triamcinolone (NASACORT AQ) 55 MCG/ACT nasal inhaler 10/28/2019 Active mirtazapine (REMERON) 45 MG tablet 12/25/2020 Active rOPINIRole (REQUIP) 2 MG tablet 01/02/2021 Active simvastatin (ZOCOR) 20 MG tablet 12/25/2020 Active levothyroxine (SYNTHROID) 150 MCG tablet Take 150 mcg by mouth daily. Active omeprazole (PRILOSEC) 20 MG capsule Take 1 Capsule (20 mg) by mouth daily. Take 1 hour before a meal. 90 Capsule 10/01/2021 Active Active Problems Patient Care Coordination No te Formatting of this note migh t be different from the original. Interactive with Asthma Disease Management Program: , opt #5, for COPD and Asthma Problem Noted Date Diagnosed Date Complication of gastric banding 07/23/2021 Overview: Added automatically from request for surgery [id number] Dysphagia 07/23/2021 Overview: Added automatically from request for surgery [id number] Depressive disorder 02/09/2021 Hypothyroidism 02/09/2021 Morbid obesity with BMI of 40.0-44.9, adult 10/27 LAP-BAND surgery status 05/14/2009 Overview: Laparoscopic adjustable gastric band, APS Removal of adjustable gastric band and all it's components - 09/30/2021 Sleep apnea 05/09/2009 Overview: LW Modifier: Severe, AHI 73/hour ; Obstructive Sleep Apnea Hypopnea Resolved Problems Problem Noted Date Diagnosed Date Resolved Date Obesity 03/09/2012 11/06/2015 Morbid obesity 05/14/2009 03/09/2012 Overview: Obesity Morbid Social History Tobacco Use Types Packs/Day Years Used Date Smoking Tobacco: Never Smokeless Tobacco: Never Alcohol Use Standard Drinks/Week Comments Not Currently 0 (1 standard drink = 0.6 oz pur e alcohol) occasionally Sex and Gender Information Value Date Recorded Sex Assigned at Female 01/13/2021 5:27 PM CDT Gender Identity Female 01/13/2021 5:27 PM CDT Sexual Orientation Not on file Last Filed Vital Signs Vital Sign Reading [...] Last Done Comments Hep C Screening (Preventive Services) 1950 Medicare Annual Wellness Visit 1950 Mammogram 09/18/2014 09/18/2013 Cholesterol 05/09/2015 05/09/2010, 10/24/2009 Dexa 2017 Colonoscopy 02/16/2021 02/16/2011 Pneumococcal 65+ Yrs (3 - PPSV23 or PCV20) 10/05/2022 10/05/2017, 10/02/2016 COVID-19 Vaccine ( - 2023-24 season) 2022 01/28/2021, 06/20/2020, 05/22/2020 Influenza (#1) 2022 12/05/2020, 11/2019, 01/23/2019, Additional history exists DTaP/Tdap/Td (3 - Tdap) 10/18/2028 10/18/2018, 04/23 Zoster/Shingles Completed 05/08/2019, 06/2018, 02/25/2017, Additional history exists HepA Aged Out No longer eligi ble based on patient's age to complete this topic HepB Aged Out No longer eligi ble based on patient's age to complete this topic Hib Aged Out No longer eligi ble based on patient's age to complete this topic IPV (Polio) Aged Out No longer eligi ble based on patient's age to complete this topic MCV4 Aged Out No longer eligi ble based on patient's age to complete this topic Medical Devices Implanted Type Area Can Carrier Device Identifier Shelf Expiration Date Model / Serial / Lot Mesh Bio-A - [id number] Implanted:Qty: 1 on 09/30/2021 by Devon Cool MD at [facility] [employer] [employer] 09/05/2023 [id number] / / [id number] Procedures Procedure Name Priority Date/Time Associated Diagnosis Comments LIPID PANEL & DIRECT LDL (IF NEEDED) Routine 05/09/2010 9:37 AM WORKING FOREMAN from Last 3 Months or Most Recently Relevant to Health Maintenance Results * Lipid Panel and Direct LDL(If Needed) (05/09/2010 9:37 AM WORKING FOREMAN) Cholesterol 160 0 - 200 mg/dL HP CONVERSION Triglycerides 83 0 - 149 mg/dL HP CONVERSION HDL Cholesterol 56 >39 mg/dL HP CONVERSION Cholesterol/HDL Ratio Screen 2.9 No normal range HP CONVERSION LDL Calculated 87 19 - 130 mg/dL HP CONVERSION Hours Fasting 12.0 No normal range HP CONVERSION 05/09/2010 9:37 AM WORKING FOREMAN Pamela Hicks PA-C LAB_1 HP CONVERSION from Last 3 Months or Most Recently Relevant to Health Maintenance Advance Directives * Full Code (Latest Code Status on File) Date Activated Date Inactivated Comments 09/30/2021 12:30 PM 10/01/2021 12:49 PM Care Teams Senior Mainframe Developer Relationship Specialty Start Date End Date Delphine Batista MD [address] [place] [address] PCP - General Family Practice 09/30/21
--- OUTSIDE RECORDS SUMMARY | 2023-07-13 11:32 | XMS_ITS | Clinical Summary ---
Author Name Unknown Organization [facility] Address [place], [place] [address] Care Team Providers Care Council Member Name Role Phone Delphine Batista MD Primary Care Provider + Allergies Active Allergy Reactions Criticality Noted Date Comments House Dust Cough 09/24/2014 Mold Extracts Cough 09/24/2014 Tree Pollen-White Birch (Bet saul Verrucosa),Std Cough 09/24/2014 Medications Medication Sig Dispensed Refills Start Date End Date Status MULTI-VITAMIN ORAL TAB one tablet daily ? 0 01/20/2001 Active fexofenadine (CECI) 180 mg tabletIndications:Singh rgic conjunctivitis TAKE 1 TABLET BY MOUTH DAILY WITH A MEAL 90 tablet 1 10/28/2010 Active azelastine 0.05% ophthalmic (OPTIVAR) 0.05 % ophthalmic solution 1 Drop 2 times daily. 1 Bottle 0 09/20/2012 Active cholecalciferol (VITAMIN D) 1,000 unit tablet Take 1 tablet by mouth once daily. 0 07/25/2013 Active albuterol HFA (PROAIR HFA) 90 mcg/actuation inhalerIndications:Uns pecified asthma(493.90) Inhale 1 Puff by mouth every 4 hours if needed. 1 Inhaler 11 06/29/2014 Active rOPINIRole (REQUIP) 1 mg tabletIndications:Rest less legs syndrome (RLS) Take 1 tablet by mouth at bedtime. 90 tablet 3 09/24/2014 Active simvastatin (ZOCOR) 10 mg tabletIndications:Mixe d hyperlipidemia Take 1 tablet by mouth at bedtime. 90 tablet 3 09/24/2014 Active levothyroxine (SYNTHROID) 137 mcg tabletIndications:Hypo thyroidism, unspecified hypothyroidism type Take 1 tablet by mouth once daily. 90 tablet 3 09/24/2014 Active fluticasone (50 mcg per actuation) nasal solution (FLONASE)Indications:A llergic rhinitis, unspecified allergic rhinitis type Inhale 1-2 Sprays into both nostrils once daily. 1 Bottle 0 09/24/2014 Active mometasone-formoterol (DULERA) 100-5 mcg/actuation inhaler Inhale 2 Puffs by mouth 2 times daily. 1 Inhaler 0 03/14/2015 Active benzonatate (TESSALON PERLES) 100 mg capsuleIndications:Cou gh Take 1 capsule by mouth 3 times daily if needed for Cough. 30 capsule 0 03/14/2015 Active mirtazapine (REMERON) 30 mg tabletIndications:Mild major depression (HC) Take 1 tablet by mouth at bedtime. 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 09/200112/15/2004 08/09/2008 DYSPNEA ON EXERTION 01/24/20 08 FATIGUE 01/24/2008 OBESITY 11/14/2008 SCIATICA - RIGHT LEG RESOLVED 01/24/2008 Unspecified gastritis and ga stroduodenitis without mention of hemorrhage 08/09/2008 Overview: Due to NSAIDs and had anemia Other and unspecified hyperlipidemia 02/12/2010 Chronic rhinitis 08/09/2008 Immunizations Name Administration Dates Next Due Influenza A (H1N1), Inactiva jacque (Age >=3 Years) 03/14/2009 Influenza, IIV3 (Age >=3 years) 11/19/2011,03/02,12/28/1997 Tdap 04/23/2008 Zoster (Zostavax-ZVL, live) 09/08/2012 Family History Medical History Relation Name Comments Cancer-prostate Brother 1 Cancer-prostate Brother 2 Cancer-colon Mother Hypertension Mother Genetic Other Mother at age 68 from colon cancer. Father at age 89 from pneumonia. He had a history of an MT. She has 5 siblings with no known cardiac disease. Cancer-colon Sister 1 Cancer No Family History Cancer-breast No Family History Cancer-ovarian No Family History Relation Name Status Comments Brother 1 Alive DM 2 Brother 2 Alive Brother 3 Alive Daughter Alive Father (Age 89) MT Mother (Age 68) colon canc er Other Sister 1 Alive Sister 2 Alive Son 1 Alive Son 2 Alive Social History Tobacco Use Types Packs/Day Years Used Date Smoking Tobacco: Never Smokeless Tobacco: Never Tobacco Cessation:Counseling Given: Yes Alcohol Use Standard Drinks/Week Comments Yes 0 (1 standard drink = 0.6 oz pur e alcohol) 1 glass laine weekly Sex and Gender Information Value Date Recorded Sex Assigned at Not on file Gender Identity Not on file Sexual Orientation Not on file Obstetrics History Para Term AB IAB SAB Ectopic Multiple Livin g Live Births 5 3 3 2 2 3 Date Outcome GA Total Labor Labor/2nd/3rd Weight Sex Delivery Anes PTL Yeny A1 A5 Name Cl in Term Term Term SAB SAB Last Filed Vital Signs Vital Sign Reading Time Taken Comments Blood Pressure 147/87 04/07/2023 10:09 AM SALES AND SERVICE OFFICER to wer Pulse 71 04/07/2023 10:09 AM SALES AND SERVICE OFFICER Temperature 36.7 ??C (98 ??F) 02/05/2016 10:27 AM SALES AND SERVICE OFFICER Respiratory Rate 18 03/14/2015 11:36 AM SALES AND SERVICE OFFICER Oxygen Saturation 97% 04/07/2023 10:09 AM SALES AND SERVICE OFFICER Inhaled Oxygen Concentration - - Weight 108 kg (238 lb) 04/07/2023 10:09 AM SALES AND SERVICE OFFICER Height 165.1 cm (5' 5) 09/24/2014 8:26 AM CDT Body Mass Index 39.61 09/24/2014 8:26 AM CDT Plan of Treatment Upcoming Encounters Date Type Department Care Team (Late st Contact Info) Description 10/20/2023 10:00 AM CDT Office Visit [facility] [address] [place] [address] Jose Braga DPM [address] [place] [address] Health Maintenance Due Date Last Done Comments Depression screening for age 12+ 1964 BMI (ht and wt on same day) for age 18+ 1970 Hepatitis C screening for ag e 18-79 1970 Zoster (shingles) series for age 50+ (2 of 3) 11/03/2012 09/08/2012 Colonoscopy through age 75 08/22/201508/21 (Completed outside of [facility]), 01/27/2006, 03/29/2005 (Completed outside of [facility]) Mammogram for age 45-75 09/21/2015 09/21/19 15, 09/18/2013, 08/31/2012, Additional history exists DEXA/DXA scan for age 65+ 2017 07/04/2009, 05/2008 Medicare Wellness for age 65+ 2017 Pneumococcal series for age 65+ (1 of 1 - PCV) 2017 Tetanus booster 04/23/2018 04/23/2008 Lipids for age 45-75 09/25/2019 09/24/2014, 09/18/2013, 09/08/2012, Additional history exists Influenza for age 65+ 11/28/2023 11/19/2011 , 03/14/2009, 03/02/2001, Additional history exists Tdap Completed 04/23/2008 COVID-19 vaccine series Completed 01/10/20 23, 01/14/2022, 01/28/2021, Additional history exists Procedures Procedure Name Priority Date/Time Associated Diagnosis Comments LIPID PANEL W REFLEX MEASURED LDL Routine 09/24/2014 9:32 AM CDT Mixed hyperlipidemia XR MAMMO BILAT SCREEN FFDM (IA) Routine 09/20/2014 7:38 AM CDT Other screening mammogram XR DXA BONE DENSITY 2 SITES AXIAL Routine 07/04/2009 3:12 PM CDT Bone metabolism disorder SCAN-COLONOSCOPY 01/27/2006 12:0 0 AM SALES AND SERVICE OFFICER from Last 3 Months or Most Recently Relevant to Health Maintenance Results * LIPID PANEL W REFLEX MEASURED LDL (09/24/2014 9:32 AM CDT) CHOLESTEROL,TOTAL 171 100 - 199 mg/dL 09/24/2014 10:29 AM CDT [facility] TRIGLYCERIDES 91 <150 mg/dL 09/24/2014 10:29 AM CDT [facility] HDL CHOLESTEROL 54 >40 mg/dL 5 10:29 AM CDT [facility] NON-HDL CHOLESTEROL 117 <145 mg/dl 09/24/2014 10:29 AM CDT [facility] CHOL/HDL RATIO 3.17 <4.50 09/24/2014 10:29 AM CDT [facility] LDL CHOLESTEROL 99 <=130 mg/dL 09/24/2014 10:29 AM CDT [facility] PATIENT STATUS FASTING 09/24/2014 10:29 AM CDT [facility] Blood specimen (specimen) BLOOD SPECIMEN / Unknown Venipuncture / Unknown 09/24/2014 9:32 AM CDT 09/24/2014 9:32 AM CDT Maia Leggett HEMISTRY [facility] [address] [place] [address] * XR MAMMO BILAT SCREEN FFDM (09/20/2014 7:38 AM CDT) Anatomical Region Laterality Modality BREASTS, Breast Left, Breast Right Bilateral Mammography Impressions 09/20/2014 9:07 AM CDT ??There is no radiographic evidence for malignancy. ??Recommend annual mammograms. A lay language report of this examination will be provided to the patient. MAMMOGRAM ASSESSMENT: ??ACR 1 Negative Narrative 09/20/2014 9:07 AM CDT XR MAMMO BILAT SCREEN FFDM [G0202.0] CLINICAL HISTORY: ??This is an asymptomatic 63 y.o. patient. INDICATION FOR EXAM: Mammogram Screening. TECHNIQUE: CC & MLO views were obtained. ??This digital study was evaluated with the assistance of Computer-Aided Detection. COMPARISON FILM: Yes 09/18/13 [facility] 08/31/12 [facility] FINDINGS: ??Mammographically, the breast tissue is almost entirely fat. ?? There are no dominant masses, suspicious micro calcifications or areas of architectural distortion. Procedure Note Alexi Bess MD - 09/20/2014 XR MAMMO BILAT SCREEN FFDM [G0202.0] CLINICAL HISTORY: This is an asymptomatic 63 y.o. patient. INDICATION FOR EXAM: Mammogram Screening. TECHNIQUE: CC & MLO views were obtained. This digital study was evaluatedwith the assistance of Computer-Aided Detection. COMPARISON FILM: Yes 09/18/13 [facility] 08/31/12 [facility] FINDINGS: Mammographically, the breast tissue is almost entirely fat.There are no dominant masses, suspicious micro calcifications or areas ofarchitectural distortion. IMPRESSION: There is no radiographic evidence for malignancy. Recommendannual mammograms. A lay language report of this examination will be provided to the patient. MAMMOGRAM ASSESSMENT: ACR 1 Negative Maia Ceja AMMO * XR DEXA BONE DENSITY 2 SITES (07/04/2009 3:12 PM CDT) Anatomical Region Laterality Modality Spine, HIPS, HIPL, HIPR Computed Radiography Narrative 07/05/2009 1:44 PM CDT DEXA BONE MINERAL DENSITY STUDY CLINICAL INDICATIONS The patient is a 58-year-old postmenopausal female. ??The patient is taking thyroid replacement therapy and calcium supplementation. FINDINGS Bone mineral density study was performed using the Hologic bone densitometer. ??The results of the study expressed as bone mineral density (BMD) are as follows: ?? AP LEFT FOREARM DENSITY BMD patient (g/cm2)(left forearm) 0.579 T score (young adult) 0.3 Z score (age matched) 1.4 HIP BONE DENSITY BMD patient (g/cm2)(right hip) 1.249 T score (young adult) 2.5 Z score (age matched) 3.3 HIP BONE DENSITY BMD patient (g/cm2)(left hip) 1.190 T score (young adult) 2.0 Z score (age matched) 2.8 Normal findings with no increased fracture risk identified. CONCLUSIONS/RECOMMENDATIONS 1. Findings are consistent with normal bone density by WHO criteria. 2. Bone density has not changed significantly since previous study. ?? 3. Three year screening study recommended. Please note: 1. ?? Advancing age is an independent risk factor from low bone mineral density for fragility fracture. 2. ?? In the hip, the lowest significant T-score of the total or femoral neck is used. 3. ?? For comparison with previous studies, L1 to L4 and the total hip are used because larger areas give better precision. 4. ?? If the BMD has increased or is stable compared to previous studies, the patient is responding satisfactorily according to the International Society for Clinical Densitometry (ISCD). 5. ?? General recommendations for follow-up studies for patients with abnormal bone mineral density: ??Typically one year after initiation or change in therapy is appropriate, with longer intervals once therapeutic effect is established. ??In conditions associated with rapid bone loss, such as glucocorticoid therapy, testing more frequently is appropriate. 6. ?? DXA scans are compared to prior studies for a patient only when 2 (or more) studies were performed on the same scanner. ??It is not possible to compare data generated on one scanner to data from another because there are not standards in DXA equipment as there are in mammography and other areas of radiology. ??This applies even if the two scanners are made by the same tutor coordinator. /[facility] Procedure Note Devon Lima MD - 07/06/2009 DEXA BONE MINERAL DENSITY STUDY CLINICAL INDICATIONS The patient is a 58-year-old postmenopausal female. The patient is takingthyroid replacement therapy and calcium supplementation. FINDINGS Bone mineral density study was performed using the Hologic bonedensitometer. The results of the study expressed as bone mineral density(BMD) are as follows: AP LEFT FOREARM DENSITY BMD patient (g/cm2)(left forearm) 0.579 T score (young adult) 0.3 Z score (age matched) 1.4 HIP BONE DENSITY BMD patient (g/cm2)(right hip) 1.249 T score (young adult) 2.5 Z score (age matched) 3.3 HIP BONE DENSITY BMD patient (g/cm2)(left hip) 1.190 T score (young adult) 2.0 Z score (age matched) 2.8 Normal findings with no increased fracture risk identified. CONCLUSIONS/RECOMMENDATIONS 1. Findings are consistent with normal bone density by WHO criteria. 2. Bone density has not changed significantly since previous study. 3. Three year screening study recommended. Please note: 1. Advancing age is an independent risk factor from low bone mineraldensity for fragility fracture. 2. In the hip, the lowest significant T-score of the total or femoralneck is used. 3. For comparison with previous studies, L1 to L4 and the total hip areused because larger areas give better precision. 4. If the BMD has increased or is stable compared to previous studies,the patient is responding satisfactorily according to the InternationalSociety for Clinical Densitometry (ISCD). 5. General recommendations for follow-up studies for patients withabnormal bone mineral density: Typically one year after initiation orchange in therapy is appropriate, with longer intervals once therapeuticeffect is established. In conditions associated with rapid bone loss,such as glucocorticoid therapy, testing more frequently is appropriate. 6. DXA scans are compared to prior studies for a patient only when 2 (ormore) studies were performed on the same scanner. It is not possible tocompare data generated on one scanner to data from another because thereare not standards in DXA equipment as there are in mammography and otherareas of radiology. This applies even if the two scanners are made by thesame tutor coordinator. 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
== END 2023-07-13 11:24 | disposition home or self-care (01) ==
LOC: MAMMO 11:24
PROVIDERS: PCP Family Medicine; Visit Provider Family Medicine
DX: Z12.31 Encounter for screening mammogram for malignant neoplasm of breast (principal)
CPT/HCPCS: 77063; 77067

== ENCOUNTER 2023-08-27 08:47 | Outpatient (CLI) | payer MEDICARE, BC, SELFPAY ==
--- OUTSIDE RECORDS SUMMARY | 2023-09-16 05:41 | XMS_ITS | Continuity of Care Document ---
Author Organization [facility] Address [address] [place] [address] Phone Care Team Providers Care Right Of Way Man Name Role Phone Rodney Hicks DO Unavailable [...] MG - Active Astelin 137 mcg Nasal [place] Aerosol spray 2 spray by intranasal route [...] Providers Copied on Encounter [facility], [address], [place], [place], [id number], [place] tel:[phone] [facility] No Information Fabiola Stevens. [address], [address], [place], [address], [place]. tel:[phone] Referring Provider: Maia Barker PA-C, [address] [place], [address]. tel:[phone] Offic/outpt E&m New Mod-hi 45 [facility], [address], [place], [place], [id number], [place] tel:[phone] [facility] No Information Rudolph Annalise Amaury. [address] [place], [address], . Referring Provider: Maia Barker PA-C, [address] [place], [address]. tel:[phone] Family History Family Member Type Diagnosis Age At Onset No Information Payers Payer name Insurance type Covered libertarian ID Dakotah dela cruz(s) [facility] CI [id number] Social History Type Description Quantity Date Captured [...]
--- OUTSIDE RECORDS SUMMARY | 2023-09-16 05:41 | XMS_ITS | Continuity of Care Document ---
Author Organization [facility] Address [address] [address] [place] [address] Phone Care Team Providers Care Clinical Manager Home Care Name Role Phone Alexi Lobato MD Unavailable Unavailable Medications Medication Instructions Dosage Effective Dates (start - stop) Status Comments Flovent HFA 44 mcg/actuation Aerosol Inhaler inhale 1 puff (44MCG) by inhalation route 2 times every day 44 MCG - Active ProAir HFA 90 mcg/actuation Aerosol Inhaler take by Inhalation route prn Not Available - Active azelastine 137 mcg Nasal [place] Aerosol spray 1 spray by intranasal route 2 times every day in each nostril 1 spray - Active Windy 180 mg tablet take 1 tablet (180MG) by oral route every day - Active tramadol 50 mg tablet take 1 Tablet (50MG) by ORAL route every 6 hours as needed 50 MG - Active Tylenol PM Extra Strength 25 mg-500 mg tablet take 1 Tablet by oral route every day at bedtime 1 Tablet - Active clonazepam 1 mg tablet take 1.5 Tablet (1.5MG) by oral route every day 1.5 MG - Active simvastatin 10 mg tablet take 1 tablet (10MG) by oral route every day in the evening 10 MG - Active mirtazapine 30 mg tablet take 1 by Oral route every day 1 - Active azelastine 0.05 % Eye Drops instill 1 drop by ophthalmic route 2 times every day as needed 1 drop - Active levothyroxine 137 mcg tablet take 1 tablet (137MCG) by oral route every day 137 MCG - Active Centrum Complete 18 mg-400 mcg tablet take 1 tablet by oral route every day with food 1.00 tablet - Active Citrucel 500 mg tablet take 1 by Oral route every day 1 - Active Vitamin C 500 mg chewable tablet take 1 by Oral route every day 1 - Active ferrous sulfate 325 mg (65 mg iron) tablet take 1 tablet (325MG) by ORAL route 3 times every day 325 MG - Active vitamin E 400 unit capsule take 1 Capsule by Oral route every day 1 Capsule - Active flaxseed oil 1,000 mg capsule take 1 by Oral route every day 1 - Active rvdjtjl-dqehgruft-k inc 333 mg-133 mg-5 mg tablet take 1 by Oral route every day 1 - Active Vitamin D3 400 unit capsule take 1 by Oral route every day 1 - Active omeprazole 20 mg capsule,delayed release take 1 capsule (20MG) by ORAL route 2 times every day before a meal 20 MG - Active CIPRODEX 0.3 %-0.1 % Ear Drops, Susp instill 4 drop by otic route 2 times every day as needed 4 drop - No Longer Active Procedures Procedure Date Ugi Endo; W/bx 1/mx Level Iv-surg Path Gross/micro 13 Colonoscopy Flex; Dx (nov Pro) 06 Ugi Endo; W/bx 1/mx Advance Directives Directive Yes / No Effective Date File Name No Information Encounters Encounter Description Practice Location Reason(s) For Visit Diagnoses Date Provider Providers Copied on Encounter [facility], [address] [address], [place], [id number], [place] tel:[phone] [facility] No Information 3 Luis Alfredo Truong. [address], [place], [place], [id number], [place]. tel:[phone] [facility], [address] [address], [place], [id number], [place] tel:[phone] [facility] Gastric/antra l Ulcer UnspecEsop Ulcer W/o BleedBile Reflux GastritisBile Reflux GastritisEsop Ulcer W/o Bleed 3 Luis Alfredo Truong. [address] [place] [address], [address], [id number], [place]. tel:[phone] Referring Provider: Shade Singh, [address] [place] [address], [address]. tel:[phone] [facility], [address] [address], [place], [id number], [place] tel:[phone] [facility] Family Hx Colon CancerIron Deficiency Anemia 6 Walker Brady. [address] [place] [address], [facility] [address], [place], [id number], [place]. tel:[phone] Referring Provider: Mehrdad Singh, [address] [place] [address] [address], [place], [address]. tel:[phone] [facility] Digestive [facility], [address] [address], [place], [id number], [place] tel:[phone] [facility] No Information 6 No Information Referring Provider: Mehrdad Singh, [address] [place] [address] [address], [place], [address]. tel:[phone] Family History Family Member Type Diagnosis Age At Onset No Information Payers Payer name Insurance type Covered democrat ID Dakotah dela cruz(s) [facility] [id number] Social History Type Description Quantity Date Captured [...]
--- OUTSIDE RECORDS SUMMARY | 2023-09-16 05:41 | XMS_ITS | Clinical Summary ---
Author Organization [facility] Address [place], [place] [address] Care Team Providers Care Solderer Assembler Name Role Phone Delphine Batista MD Primary [...] pneumonia. He had a history of an [place]. She has 5 siblings with no known cardiac disease. Cancer-colon Sister 1 Cancer No Family History Cancer-breast No Family History Cancer-ovarian No Family History Relation Name Status Comments Brother 1 Alive DM 2 Brother 2 Alive Brother 3 Alive Daughter Alive Father (Age 89) [place] Mother (Age 68) colon canc er Other [...] Outcome GA Total Labor Labor/2nd/3rd Weight Sex Type Anes PTL Yeny A1 A5 Name Clin Term Term Term SAB SAB Last Filed Vital Signs Vital Sign Reading Time Taken Comments Blood Pressure 147/87 04/07/2023 10:09 AM FINISH MOLDER to wer Pulse 71 04/07/2023 10:09 AM FINISH MOLDER Temperature 36.7 ??C (98 ??F) 02/05/2016 10:27 AM FINISH MOLDER Respiratory Rate 18 03/14/2015 11:36 AM FINISH MOLDER Oxygen Saturation 97% 04/07/2023 10:09 AM FINISH MOLDER Inhaled Oxygen Concentration - - Weight 108 kg (238 lb) 04/07/2023 10:09 AM FINISH MOLDER Height 165.1 cm (5' 5) 09/24/2014 8:26 AM CDT Body Mass Index 39.61 09/24/2014 8:26 AM CDT Plan of Treatment Upcoming Encounters Date Type Department Care Team (Late st Contact Info) Description 10/20/2023 10:00 AM CDT Office Visit [facility] [address] [place] [address] Jose Braga DPM [address] [place] [address] Health Maintenance Due Date Last Done Comments Depression screening for age 12+ 1964 BMI (ht and wt on same day) for age 18+ 1970 Hepatitis C screening for ag e 18-79 1970 Zoster (shingles) series for age 50+ (2 of 3) 11/03/2012 09/08/2012 Colonoscopy through age 75 08/22/201508/21 (Completed outside of [facility]), 01/27/2006, 03/29/2005 (Completed outside of [facility]) Mammogram for age 45-75 09/21/2015 09/21/19 15, 09/18/2013, 08/31/2012, Additional history exists DEXA/DXA scan for age 65+ 2017 07/04/2009, 05/2008 Medicare Wellness for age 65+ 2017 Pneumococcal series for age 65+ (1 of 1 - PCV) 2017 Tetanus booster 04/23/2018 04/23/2008 Lipids for age 45-75 09/25/2019 09/24/2014, 09/18/2013, 09/08/2012, Additional history exists COVID-19 vaccine series ( season) 2023 01/09/2023, 01/14/2022, 01/28/2021, Additional history exists Influenza for age 65+ 11/28/2023 11/19/2011 , 03/14/2009, 03/02/2001, Additional history exists Tdap Completed 04/23/2008 Procedures Procedure Name Priority Date/Time Associated Diagnosis Comments LIPID PANEL W REFLEX MEASURED LDL Routine 09/24/2014 9:32 AM CDT Mixed hyperlipidemia XR MAMMO BILAT SCREEN FFDM (IA) Routine 09/20/2014 7:38 AM CDT Other screening mammogram XR DXA BONE DENSITY 2 SITES AXIAL Routine 07/04/2009 3:12 PM CDT Bone metabolism disorder SCAN-COLONOSCOPY 01/27/2006 12:0 0 AM FINISH MOLDER from Last 3 Months or Most Recently Relevant to Health Maintenance Results * LIPID PANEL W REFLEX MEASURED LDL (09/24/2014 9:32 AM CDT) CHOLESTEROL,TOTAL 171 100 - 199 mg/dL 09/24/2014 10:29 AM CDT [facility] TRIGLYCERIDES 91 <150 mg/dL 09/24/2014 10:29 AM CDT [facility] HDL CHOLESTEROL 54 >40 mg/dL 5 10:29 AM CDT [facility] NON-HDL CHOLESTEROL 117 <145 mg/dl 09/24/2014 10:29 AM CDT [facility] CHOL/HDL RATIO 3.17 <4.50 09/24/2014 10:29 AM CDT [facility] LDL CHOLESTEROL 99 <=130 mg/dL 09/24/2014 10:29 AM CDT [facility] PATIENT STATUS FASTING 09/24/2014 10:29 AM CDT [facility] Blood specimen (specimen) BLOOD SPECIMEN / Unknown Venipuncture / Unknown 09/24/2014 9:32 AM CDT 09/24/2014 9:32 AM CDT Maia Leggett HEMISTRY [facility] [address] [place] [address] * XR MAMMO BILAT SCREEN FFDM (09/20/2014 [...] of Computer-Aided Detection. COMPARISON FILM: Yes 09/18/13 [facility] 08/31/12 [facility] FINDINGS: ??Mammographically, the breast tissue is almost [...] of Computer-Aided Detection. COMPARISON FILM: Yes 09/18/13 [facility] 08/31/12 [facility] FINDINGS: Mammographically, the breast tissue is almost [...] two scanners are made by the same plumbing and heating contractor. [facility] Procedure Note Devon Lima MD - [...] the two scanners are made by thesame plumbing and heating contractor. /[facility] Terell Malloy MD DEXA * SCAN-COLONOSCOPY (01/27/2006 12:00 AM FINISH MOLDER) Narrative Procedure Note Scanner - 01/27/2006 12:00 AM FINISH MOLDER Scanner OTHER from Last 3 Months or Most Recently Relevant to Health Maintenance Advance Directives Documents on File Type Date Recorded Patient Clinical Biostatistics Director Expl anation Healthcare Directive 05/22/2015 5:04 PM 08 MAY 2015 Healthcare Directive 05/16/2015 4:25 PM He althcare Directive * Full Code (Latest Code Status on File) Date Activated Date Inactivated Comments 02/16/2011 7:10 AM 02/17/2011 2:12 AM Care Teams Solderer Assembler Relationship Specialty Start Date End Date Delphine Batista MD [address] [place] [address] PCP - General Family Practice 10/28/21
--- OUTSIDE RECORDS SUMMARY | 2023-09-16 05:41 | XMS_ITS | Data Portability ---
Author Organization [place] [facility], [employer] Address [address] [place] [address] Assessment Encounter Date Assessment Date Assessment LastModified [...] trial shoes and devices and ped pillows. [email or web address] Not available 07/17/2022 12:43:12 08/06/2022 08/06/2022 We [...] time today discussing treatment with the patient. [email or web address] Not available 08/06/2022 19:34:32 09/24/2022 09/24/2022 We [...] time today discussing treatment with the patient. [email or web address] Not available 09/24/2022 10:23:40 Plan of Treatment Reminders Order Date Submit Date Provider Last Modified By Organization Details Last Modified Time Details Appointments None record ed. Lab None record ed. Referral None record ed. Procedures None record ed. Surgeries None record ed. Imaging XR, foot, 3 or more view 023 07/18/19 [facility], [address] [place] [address], [phone], 21:50:41 Medication Orders None record ed. Patient TargetsNo targets recorded. Patient InstructionsNo instructions recorded. Reason for Referral None Reported. Results Created Date Observation Date Name Description Value Unit Range Abnormal Flag LastModifiedBy Organization Detail LastModifiedTime 07/18/19 XR, foot, 3 or more view No observ ation record ed. [email or web address] [address], [address], 07/17/2022 12:37:45 Result Notes None recorded. Procedures Surgical History None recorded. Imaging Results Imaging Date Name Status LastModified by Organiz ation Details LastModified Time 07/17/2022 XR, foot, 3 or more view active [email or web address] [address], [address], 07/17/2022 12:37:45 Procedure Notes None recorded. Medical Equipment None Reported. Allergies Allergen ID Allergen Name Allergen Category Reaction Reaction Severity Criticality Documentation Date Start Date Code Code System Note Provider Name and Address Organization Details Recorded Time 71392 cat dander environme nt Not available Not available Not available 07/17/2022 ERICA Umana - [facility] 3 08:56:39 87528 house dust mite environme nt Not available Not available Not available 07/17/2022 ERICA Umana - [facility] 3 08:56:51 30432 mold extract environme nt Not available Not available Not available 07/17/2022 71989 8 RxNorm ERICA Umana - [facility] 3 08:56:57 56037 tree and shrub pollen environme nt,medica tion Not available Not available Not available 07/17/2022 ERICA Umana - [facility] 3 [...] azelastine 137 mcg (0.1 %) nasal spray USE 2 SPRAY(S) IN EACH NOSTRIL TWICE [...] Updated DateTime 07/17/2022 165.1 cm 43.3 kg/m2 725786.02 g Vandana Zaragoza [place] - [facility] 07/17/2022 [...] Diagnosis SNOMED-CT Code 4821 Shad Christensen DPM [facility] [address] [place] [phone] 07/16/2022 09:54:54 07/17/2022 13:02:54 Pain in left foot 88944467130987 7 Pain in right foot 83249 893519376 7 Chronic low back pain 27 5427314 Functional gait abnormality [id number] 5484 Shad Christensen DPM [facility] [address] [place] [phone] 08/06/2022 11:59:11 08/07/2022 16:34:27 Pain in left foot 61567020112448 7 Pain in right foot 66732 640081640 7 Antalgic gait 83393860 6806 Shad Christensen DPM [facility] [address] [place] [phone] 09/24/2022 09:52:04 09/24/2022 11:12:40 Pain in left foot 78240928743784 7 Pain in right foot 46811 872763647 7 Antalgic gait 12028870 Health Concerns Section Related Observation LastModified by Organization Detai ls LastModified Time None Recorded Concern Status LastModified by Organization Details LastModified Time None Recorded Advance Directives Directive None Recorded Payers Encounter Date Sequence Insurance Name Policy Number Policy Lala Covered Member ID Lala Member ID Guarantor Name 09/24/2022 1 [place] [id number] Mindi Caba [id number] Mindi Caba 08/06/2022 1 [place] [id number] Mindi Caba [id number] Mnidi Caba 07/16/2022 1 [place] [id number] Mindi Ceja Caba [id number] Mindi Ceja Rosales Notes Date Note Type Note Provider Name and Address Organization Details Recorded Time 07/16/2022 text/html HPI Notes: increasing foot pain and difficulty walking for years. Fell off a step stool 5 years ago. Got orthotics and a couple steroid injections from Dr. Braga. Had back sx l45 fusion 20 years ago. B/L hips and knees replaced. Shad Christensen DPM [address] [place], [address], [facility] 07/17/2022 12:43:16 08/06/2022 text/html HPI Notes: Pt. has a history of foot pain, knee pain and postural symptoms making it difficult for her to walk. She would like to walk for exercise. Shad Christensen DPM [address] [place] [address], [phone], [facility] 08/06/2022 19:34:39 09/24/2022 text/html HPI Notes: Pt. has a history of foot pain, knee pain and postural symptoms making it difficult for her to walk. She would like to walk for exercise. SHe has been walking more and faster with [employer]. She feels her stability has improved. Shad Christensen DPM [address] [place], [address], [facility] 09/24/2022 10:24:05 OBGyn Episode No OBEpisode recorded.
--- OUTSIDE RECORDS SUMMARY | 2023-09-16 05:41 | XMS_ITS | Clinical Summary ---
Author Organization [facility] Address [address] [place] [address] Care Team Providers Care Rig Welder Name Role Phone Delphine Batista MD Primary Care Provider Source Comments You are receiving this document as you are listed as the primary care provider,follow-up provider, or the patient has been referred to you for consultation.This is in compliance with the Medicare and[facility] EHR Incentive Program,which states Providers who transition their patient to another setting of careor provider of care or refers their patient to another provider of care shouldprovide summary care record for each transition of care or referral. [employer] Allergies Active Allergy Reactions Criticality Noted Date [...] Overview: Added automatically from request for surgery [id number] Dysphagia 07/23/2021 Overview: Added automatically from request for surgery [id number] Depressive disorder 02/09/2021 Hypothyroidism 02/09/2021 Morbid obesity [...] PCV20) 10/05/2022 10/05/2017, 10/02/2016 COVID-19 Vaccine ( season) 2022 01/28/2021, 06/20/2020, 05/22/2020 Influenza (Season Ended) 2023 021, 12/06/2019, 01/23/2019, Additional history exists DTaP/Tdap/Td (3 [...] this topic Medical Devices Implanted Type Area Operations Engineer Device Identifier Shelf Expiration Date Model / Serial / Lot Mesh Bio-A - [id number] Implanted:Qty: 1 on 09/30/2021 by Devon Cool MD at [facility] DEVICE [employer] 09/05/2023 [id number] / / [id number] Procedures Procedure Name Priority Date/Time Associated Diagnosis Comments LIPID PANEL & DIRECT LDL (IF NEEDED) Routine 05/09/2010 9:37 AM SYSTEMS TEST ENGINEER from Last 3 Months or Most Recently Relevant to Health Maintenance Results * Lipid Panel and Direct LDL(If Needed) (05/09/2010 9:37 AM SYSTEMS TEST ENGINEER) Cholesterol 160 0 - 200 mg/dL HP CONVERSION Triglycerides 83 0 - 149 mg/dL HP CONVERSION HDL Cholesterol 56 >39 mg/dL HP CONVERSION Cholesterol/HDL Ratio Screen 2.9 No normal range HP CONVERSION LDL Calculated 87 19 - 130 mg/dL HP CONVERSION Hours Fasting 12.0 No normal range HP CONVERSION 05/09/2010 9:37 AM SYSTEMS TEST ENGINEER Pamela Hicks PA-C LAB_1 HP CONVERSION from Last 3 Months or Most Recently Relevant to Health Maintenance Advance Directives * Full Code (Latest Code Status on File) Date Activated Date Inactivated Comments 09/30/2021 12:30 PM 10/01/2021 12:49 PM Care Teams Rig Welder Relationship Specialty Start Date End Date Delphine Batista MD [address] [place] [address] PCP - General Family Practice 09/30/21
== END 2023-08-27 08:48 | disposition home or self-care (01) ==
LOC: NFLDREF 09-16 05:39
PROVIDERS: PCP Family Medicine; Referring Provider Family Medicine; Visit Provider Family Medicine
DX: E03.9 Hypothyroidism, unspecified (principal); G62.9 Polyneuropathy, unspecified; E78.5 Hyperlipidemia, unspecified; R73.01 Impaired fasting glucose; Z13.9 Encounter for screening, unspecified
CPT/HCPCS: 80053; 80061; 82607; 84439; 84443

== ENCOUNTER 2023-09-28 13:00 | Outpatient (CLI) | payer MEDICARE, BC, SELFPAY ==
[2023-09-28 14:07] VITALS: BP 151/94; PULSE 76; RESP 18
--- NOTE | 2023-09-28 14:39 | P.STN_ITS ---
Stress Test Note Date Date of test: 09/28/23 Providers Primary care provider: Delphine Batista Stress test physician: Devin Tee Stress Test Note Stress test ordered: Stress Echo Indication for test: Dyspnea Results discussion: Patient is a very nice 72-year-old lady who presents for the above test after discussion the risks benefits and side effects she would like to proceed. Cardiac stress test medical history form is reviewed. Pretest EKG shows normal sinus rhythm, ventricular rate 77 blood pressure elevated at 191/[address] wave changes, with Flattening noted laterally inferiorly, at baseline Segundo protocol salt for a total time of 4 minutes, she achieved a metabolic equivalent of 5.8 Mets, with the target heart rate being 103% test is terminated because of fatigue, some mild irregularities her noted on her tracing, but knows specific evidence of ischemia is noted. There were no dysrhythmias, she recover ed normally. Subjectively she had fatigue but no specific chest pain, Impression: Negative electrographic portion of stress echo Follow up suggested: Await echo images these will be reviewed by Cardiology, clinical correlation with these will be needed, patient recovered normally and left this department in good condition.
== END 2023-09-28 13:01 | disposition home or self-care (01) ==
LOC: STRESS 13:03
PROVIDERS: PCP Family Medicine; Visit Provider Family Medicine
DX: R06.09 Other forms of dyspnea (principal)
CPT/HCPCS: 93016; 93325; 93351

== ENCOUNTER 2023-10-21 13:50 | Outpatient (CLI) | payer MEDICARE, BC, SELFPAY ==
--- OUTSIDE RECORDS SUMMARY | 2023-10-21 13:59 | XMS_ITS | Clinical Summary ---
Author Organization [employer] [facility] Address [place], [place] [address] Care Team Providers Care Patternmaker Bench Name Role Phone Delphine Alanis MD Primary Care Provider + Allergies Active [...] WITH A MEAL 90 tablet 03/03/2016 Active Hospital, Clinic, or Other Facility Administered Medication Ordered Dose Route Frequency Start Date End Date Status triamcinolone acetonide (KENALOG) injection 20 mgIndications:Sinus tarsi syndrome of both ankles 20 mg IArtic ONE TIME 10/20/2023 10/20/2023 E nded Active Problems Problem Noted Date Diagnosed Date [...] and unspecified hyperlipidemia 02/12/2010 Chronic rhinitis 08/09/2008 Encounters Date Type Department Care Team Description 10/20/2023 10:00 AM CDT Office Visit [facility] [address] [place] [address] Jose Braga, DPM Follow Up (Bilateral sinus tarsi ) 10/20/2023 Travel 09/28/2023 1:00 PM CDT Ancillary Procedure [facility] [address] [place] [address] from Last 3 Months Immunizations Name Administration Dates Next Due Influenza [...] pneumonia. He had a history of an VT. She has 5 siblings with no known cardiac disease. Cancer-colon Sister 1 Cancer No Family History Cancer-breast No Family History Cancer-ovarian No Family History Relation Name Status Comments Brother 1 Alive DM 2 Brother 2 Alive Brother 3 Alive Daughter Alive Father (Age 89) VT Mother (Age 68) colon canc er Other [...] Sign Reading Time Taken Comments Blood Pressure 112/77 10/20/2023 10:00 AM CDT to wer Pulse 70 10/20/2023 10:00 AM CDT Temperature 36.7 ??C (98 ??F) 02/05/2016 10:27 AM DEPARTMENT STORE DOOR GREETER Respiratory Rate 18 03/14/2015 11:36 AM DEPARTMENT STORE DOOR GREETER Oxygen Saturation 95% 10/20/2023 10:00 AM CDT Inhaled Oxygen Concentration - - Weight 109.8 kg (242 lb) 10/20/2023 10:00 AM CDT Height 165.1 cm (5' 5) 09/24/2014 8:26 AM CDT Body Mass Index 40.27 09/24/2014 8:26 AM CDT Plan of Treatment Health Maintenance Due Date Last Done Comments Depression screening for age 12+ 1964 BMI (ht and wt on same day) for age 18+ 1970 Hepatitis C screening for ag e 18-79 1970 Zoster (shingles) series for age 50+ (2 of 3) 11/03/2012 09/08/2012 Colonoscopy through age 75 08/22/201508/21 (Completed outside of [facility]), 01/27/2006, 03/29/2005 (Completed outside of [facility]) Mammogram for age 45-75 09/21/2015 09/21/19 15, 09/18/2013, 08/31/2012, Additional history exists DEXA/DXA scan for age 65+ 2017 07/04/2009, 05/2008 Medicare Wellness for age 65+ 2017 Pneumococcal series for age 65+ (1 of 1 - PCV) 2017 Tetanus booster 04/23/2018 04/23/2008 Lipids for age 45-75 09/25/2019 09/24/2014, 09/18/2013, 09/08/2012, Additional history exists COVID-19 vaccine series (2022- season) 2023 01/09/2023, 01/14/2022, 01/28/2021, Additional history exists Influenza for age 65+ 11/28/2023 11/19/2011 , 03/14/2009, 03/02/2001, Additional history exists Tdap Completed 04/23/2008 Procedures Procedure Name Priority Date/Time Associated Diagnosis Comments ECHO STRESS EXERCISE WO CONTRAST W LTD DOPPLER Routine 09/28/2023 1:47 PM CDT Other forms of dyspnea LIPID PANEL W REFLEX MEASURED LDL Routine 09/24/2014 9:32 AM CDT Mixed hyperlipidemia XR MAMMO BILAT SCREEN FFDM (IA) Routine 09/20/2014 7:38 AM CDT Other screening mammogram XR DXA BONE DENSITY 2 SITES AXIAL Routine 07/04/2009 3:12 PM CDT Bone metabolism disorder SCAN-COLONOSCOPY 01/27/2006 12:0 0 AM DEPARTMENT STORE DOOR GREETER from Last 3 Months or Most Recently Relevant to Health Maintenance Results * ECHO STRESS EXERCISE WO CONTRAST W LTD DOPPLER (09/28/2023 1:47 PM CDT) PEAK TR VELOCITY 2.5 m/s LVEDD 4.4 cm EJECTION FRACTION 55 - 60% Anatomical Region Laterality Modality Ultrasound 09/28/2023 1:16 PM CDT Narrative 09/28/2023 2:11 PM CDT STRESS ECHOCARDIOGRAM MINDI ALMONTE ?Accession#: ?? [id number] : ?1950 73 years Study Date: ?? 09/28/2023 1:16:01 PM Gender: F ? BP: ? 134/87 mmHg Height: 165.00 cm ? BSA: ?2.13 m? ? ? Weight: 108.00 kg ? Tech: ? NWA ?Referring MD: DELPHINE ALANIS Site: ? [facility] Reading Location: Mobile-OP Patient Location: Outpatient. Procedure: Color Doppler, Limited Spectral Doppler and Stress Echo. Segundo stress echo. Indication for study: Dyspnea Cardiac Rhythm: Regular.Study quality: Good. Final Impressions: 1. Negative stress echo for ischemia. 2. Grossly normal rest screening echo. 3. See separate report for EKG interpretation. 4. During stress exam the patient developed shortness of breath. 5. Maximum stress test with 88.6% of age predicted maximum heart rate achieved. 6. Post stress, normal left ventricular size, normal global systolic function with an estimated EF of 70 to 75%. Stress Data: ? HR ?Systolic Diastolic Time Duration Minutes Seconds Baseline 69 bpm ?134 ?87 mmHg ?4 :2 ?Peak ? 132 bpm ?? 191 ?87 mmHg Max Pred HR ?149 % of Max ? 89% Double Product [id number] Echo Findings:This is a negative stress echo test for ischemia. Post stress, normal left ventricular size, normal global systolic function with an estimated EF of 70 to 75%. LV regional wall motion abnormalities are present post exercise. EKG:See separate report for EKG interpretation. Exam Protocol:The patient presents with no significant symptoms at baseline. The patient exercised 4 min 2 sec to stage II according to the Segundo stress echo protocol. Test terminated due to completion of protocol. 7.0 METS were achieved. The patient achieved a heart rate of 132 bpm which is 88.6% of maximum predicted heart rate. Maximum systolic blood pressure was 191 [place] [id number]. Maximum stress test with 88.6% of age predicted maximum heart rate achieved. The blood pressure response was normal. The patient developed shortness of breath during the stress exam. Low (less than 1% annual mortality rate) non invasive risk stratification. Chamber Sizes and Function Normal left ventricular size, normal global systolic function with an estimated EF of 55 - 60%. LV regional wall motion abnormalities are not present. Right ventricular cavity size is normal, global systolic RV function is normal. The sinus of Valsalva is normal sized. Valves, RV Pressures and Diastolic Function The aortic valve is normal in structure and trileaflet, no stenosis and no regurgitation. The mitral valve is normal in structure, no mitral regurgitation. The tricuspid valve is normal in structure. Tricuspid regurgitation is not evident. The tricuspid regurgitant velocity is 2.5 m/s, the estimated right ventricular systolic pressure is 25 mmHg plus right atrial pressure. Masses, Effusion, Shunts There is no pericardial effusion. MEASUREMENTS AND CALCULATIONS 2-D Measurements and LV Function: LVID (d) 4.4 cm LV FS% (2D) 23 % LVID (s) 3.3 cm HR ?69 bpm IVS (d) ??1.6 cm LVPW (d) 1.1 cm Ao Sinus 3.2 cm LA ? 3.8 cm Aortic Valve: Vmax 1.6 m/s Max PG 10 mmHg Tricuspid Valve and estimated PA pressures: TR Vmax 2.5 m/s TR maxG 25 mmHg . This study was interpreted by an [facility] accredited facility. CC: [facility] ([facility]) [facility]. ??Final ?? Procedure Note Andriy Velez MD - 09/28/2023 STRESS ECHOCARDIOGRAM MINDI ALMONTE : 1950 73 years Study Date: 09/28/2023 1:16:01 PM Gender: F BP: 134/87 mmHg Height: 165.00 cm BSA: 2.13 m? ? ? Weight: 108.00 kg Tech: KRISTYN Referring MD: DELPHINE ALANIS Site: [facility] Reading Location: Mobile-OP Patient Location: Outpatient. Procedure: Color Doppler, Limited Spectral Doppler and Stress Echo. Brucestress echo. Indication for study: Dyspnea Cardiac Rhythm: Regular.Study quality: Good. Final Impressions: 1. Negative stress echo for ischemia. 2. Grossly normal rest screening echo. 3. See separate report for EKG interpretation. 4. During stress exam the patient developed shortness of breath. 5. Maximum stress test with 88.6% of age predicted maximum heart rateachieved. 6. Post stress, normal left ventricular size, normal global systolicfunction with an estimated EF of 70 to 75%. Stress Data: HR Systolic Diastolic Time Duration Minutes Seconds Baseline 69 bpm 134 87 mmHg 4 :2 Peak 132 bpm 191 87 mmHg Max Pred HR 149 % of Max 89% Double Product [id number] Echo Findings:This is a negative stress echo test for ischemia. Poststress, normal left ventricular size, normal global systolic function withan estimated EF of 70 to 75%. LV regional wall motion abnormalities arepresent post exercise. EKG:See separate report for EKG interpretation. Exam Protocol:The patient presents with no significant symptoms atbaseline. The patient exercised 4 min 2 sec to stage II according to [facility] stress echo protocol. Test terminated due to completion of protocol.7.0 METS were achieved. The patient achieved a heart rate of 132 bpm whichis 88.6% of maximum predicted heart rate. Maximum systolic blood pressurewas 191 [place] [address]. Maximum stress testwith 88.6% of age predicted maximum heart rate achieved. The bloodpressure response was normal. The patient developed shortness of breathduring the stress exam. Low (less than 1% annual mortality rate) noninvasive risk stratification. Chamber Sizes and Function Normal left ventricular size, normal global systolic function with anestimated EF of 55 - 60%. LV regional wall motion abnormalities are notpresent. Right ventricular cavity size is normal, global systolic RVfunction is normal. The sinus of Valsalva is normal sized. Valves, RV Pressures and Diastolic Function The aortic valve is normal in structure and trileaflet, no stenosis and noregurgitation. The mitral valve is normal in structure, no mitralregurgitation. The tricuspid valve is normal in structure. Tricuspidregurgitation is not evident. The tricuspid regurgitant velocity is 2.5m/s, the estimated right ventricular systolic pressure is 25 mmHg plusright atrial pressure. Masses, Effusion, Shunts There is no pericardial effusion. MEASUREMENTS AND CALCULATIONS 2-D Measurements and LV Function: LVID (d) 4.4 cm LV FS% (2D) 23 % LVID (s) 3.3 cm HR 69 bpm IVS (d) 1.6 cm LVPW (d) 1.1 cm Ao Sinus 3.2 cm LA 3.8 cm Aortic Valve: Vmax 1.6 m/s Max PG 10 mmHg Tricuspid Valve and estimated PA pressures: TR Vmax 2.5 m/s TR maxG 25 mmHg . This study was interpreted by an [facility] accredited facility. CC: [facility] (med records) [facility]. Final Delphine Alanis MD ECHO ORD * LIPID PANEL W REFLEX MEASURED LDL (09/24/2014 9:32 AM CDT) [facility] CHOLESTEROL,TOTAL 171 100 - 199 mg/dL 09/24/2014 10:29 AM CDT [facility] TRIGLYCERIDES 91 <150 mg/dL 09/24/2014 10:29 AM CDT [facility] HDL CHOLESTEROL 54 >40 mg/dL 5 10:29 AM CDT [facility] NON-HDL CHOLESTEROL 117 <145 mg/dl 09/24/2014 10:29 AM CDT [facility] CHOL/HDL RATIO 3.17 <4.50 09/24/2014 10:29 AM CDT [facility] LDL CHOLESTEROL 99 <=130 mg/dL 09/24/2014 10:29 AM CDT [facility] PATIENT STATUS FASTING 09/24/2014 10:29 AM CDT [facility] Blood specimen (specimen) BLOOD SPECIMEN / Unknown Venipuncture / Unknown 09/24/2014 9:32 AM CDT 09/24/2014 9:32 AM CDT Maia Leggett HEMISTRY [facility] [address] [place] [address] * XR MAMMO BILAT SCREEN FFDM (09/20/2014 [...] of Computer-Aided Detection. COMPARISON FILM: Yes 09/18/13 [facility] 08/31/12 [facility] FINDINGS: ??Mammographically, the breast tissue is [...] of Computer-Aided Detection. COMPARISON FILM: Yes 09/18/13 [facility] 08/31/12 [facility] FINDINGS: Mammographically, the breast tissue is [...] two scanners are made by the same ceo and founder. /jgs HWF Procedure Note Devon Lima MD - 07/06/2009 [...] if the two scanners are made by [employer] ceo and founder. /jgs HW Terell Malloy MD DEXA * SCAN-COLONOSCOPY (01/27/2006 12:00 AM DEPARTMENT STORE DOOR GREETER) Narrative Procedure Note Scanner - 01/27/2006 12:00 AM DEPARTMENT STORE DOOR GREETER Scanner OTHER from Last 3 Months or Most Recently Relevant to Health Maintenance Advance Directives Documents on File Type Date Recorded Patient Meter Tester Expl anation Healthcare Directive 05/22/2015 5:04 PM 08 MAY 2015 Healthcare Directive 05/16/2015 4:25 PM He althcare Directive * Full Code (Latest Code Status on File) Date Activated Date Inactivated Comments 02/16/2011 7:10 AM 02/17/2011 2:12 AM Care Teams Patternmaker Bench Relationship Specialty Start Date End Date Delphine Alanis MD [address] [place] [address] PCP - General Family Practice 10/28/21
--- OUTSIDE RECORDS SUMMARY | 2023-10-21 13:59 | XMS_ITS | Clinical Summary ---
Author Organization [facility] Address [address] [place] [address] Care Team Providers Care Spool Salvager Name Role Phone Delphine Batista MD Primary Care Provider Source Comments You are receiving this document as you are listed as the primary care provider,follow-up provider, or the patient has been referred to you for consultation.This is in compliance with the Medicare and[facility] EHR Incentive Program,which states Providers who transition their patient to another setting of careor provider of care or refers their patient to another provider of care shouldprovide summary care record for each transition of care or referral. [employer] Allergies Active Allergy Reactions Criticality Noted Date [...] Overview: Added automatically from request for surgery [id number] Dysphagia 07/23/2021 Overview: Added automatically from request for surgery [id number] Depressive disorder 02/09/2021 Hypothyroidism 02/09/2021 Morbid obesity [...] ( season) 2022 01/28/2021, 06/20/2020, 05/22/2020 Influenza (#1) 2023 12/05/2020, 11/2019, 01/23/2019, Additional history exists DTaP/Tdap/Td [...] this topic Medical Devices Implanted Type Area Temper Mill Roller Device Identifier Shelf Expiration Date Model / Serial / Lot Mesh Bio-A - [id number] Implanted:Qty: 1 on 09/30/2021 by Devon Cool MD at [facility] [employer] 09/05/2023 [id number] / / [id number] Procedures Procedure Name Priority Date/Time Associated Diagnosis Comments LIPID PANEL & DIRECT LDL (IF NEEDED) Routine 05/09/2010 9:37 AM HEALTHCARE RECRUITER from Last 3 Months or Most Recently Relevant to Health Maintenance Results * Lipid Panel and Direct LDL(If Needed) (05/09/2010 9:37 AM HEALTHCARE RECRUITER) Cholesterol 160 0 - 200 mg/dL HP CONVERSION Triglycerides 83 0 - 149 mg/dL HP CONVERSION HDL Cholesterol 56 >39 mg/dL HP CONVERSION Cholesterol/HDL Ratio Screen 2.9 No normal range HP CONVERSION LDL Calculated 87 19 - 130 mg/dL HP CONVERSION Hours Fasting 12.0 No normal range HP CONVERSION 05/09/2010 9:37 AM HEALTHCARE RECRUITER Pamela Hicks PA-C LAB_1 HP CONVERSION from Last 3 Months or Most Recently Relevant to Health Maintenance Advance Directives * Full Code (Latest Code Status on File) Date Activated Date Inactivated Comments 09/30/2021 12:30 PM 10/01/2021 12:49 PM Care Teams Spool Salvager Relationship Specialty Start Date End Date Delphine Batista MD [address] [place] [address] PCP - General Family Practice 09/30/21
--- NOTE | 2023-10-21 14:00 | CRLHL7_ITS ---
For Patients: As a result of the Century Cures Act, medical imaging exams and procedure reports are released immediately into your electronic medical record. You may view this report before your referring provider. If you have questions, please contact your health care provider. DXA BONE MINERAL DENSITY STUDY Reason for exam: Asymptomatic menopausal state. Current height (in): 65. Weight (lb): 235. Menopause age: 52. Ethnicity: White. 1. Have you had a previous hip or vertebral fracture? No. 2. Have you had any fractures during your adult life which did not result from significant trauma (e.g., auto accident)? No. 3. Did either of your parents have a hip fracture? No. 4. Do you smoke? No. 5. Have you ever taken Glucocorticoids? No. 6. Do you have rheumatoid arthritis? No. 7. Do you have secondary osteoporosis? No. 8. Do you drink 3 or more alcoholic drinks per day? No. 9. Are you being treated for osteoporosis? No. 10. Have you ever taken any of the following medications: Actonel, Evista, Fosamax, Miacalcin, Reclast, Boniva, Forteo, HRT (i.e. estrogen/hormone therapy), Protelos, Prolia, Vitamin D, Calcium, other ??? please specify. ANSWER: Yes, vitamin D and calcium. 11. Do you have any of the following medical conditions: Anorexia or bulimia, asthma or emphysema, end stage renal disease, hyperparathyroidism, any seizure disorders, cancer, inflammatory bowel diseases, hysterectomy, other ??? please specify. ANSWER: Yes, asthma or emphysema. 12. What was your maximum height (inches)? 67. 13. Do you perform weight bearing exercise regularly? No. 14. Do you regularly consume dairy products? Yes. 15. Do you drink caffeinated beverages? Yes. 16. At what age did your period start? 14. 17. Are you premenopausal? No. 18. How many full term pregnancies have you had? 3. 19. Have you ever missed your period for more than 6 months in a row (not including or menopause)? No. TECHNIQUE: Bone mineral density study was performed using the [employer]. FINDINGS: The results of the study expressed as bone mineral density (BMD) are as follows: Radius Right 33%: BMD: 0.579 g/cm2. T-score: -1.9. Z-score: 0.3. Left 33%: BMD: 0.621 g/cm2. T-score: -1.2. Z-score: 1.0. IMPRESSION: Osteopenia. *Comparison exams done prior to 08/2019 were performed on different unit, [employer]. COMPARISON: Compared with scan of 12/20/2019, the bone mineral density has decreased by 3.6 percent at the right forearm and increased by 11.0 percent at the left forearm. Joel Meehan M.D. Diagnostic Radiologist [email or web address] JERALD/sp R: 10/22/2023 Transcribed: 3:04 p.m. SP/Dictated by: Joel Meehan MD @ 10/22/2023 11:54:00 AM (Electronically Signed)
--- OUTSIDE RECORDS SUMMARY | 2023-10-21 14:00 | XMS_ITS | Continuity of Care Document ---
Author Organization [facility] Address [address] [place] [address] Phone Care Team Providers Care Ripening Room Hand Name Role Phone Rodney Hicks DO Unavailable [...] MG - Active Astelin 137 mcg Nasal Michie Aerosol spray 2 spray by intranasal route [...] Providers Copied on Encounter [facility], [address], [place], [place], [id number], [place] tel:[phone] [facility] No Information Fabiola Stevens. [address], [place], [address], [place]. tel:[phone] Referring Provider: Maia Barker PA-C, [address] [place], [address]. tel:[phone] Offic/outpt E&m [employer] [address] [facility], [address], [place], [place], [id number], [place] tel:[phone] [facility] No Information Rudolph Annalise Amaury. [address] [place], [address], . Referring Provider: Maia Barker PA-C, [address] [place], [address]. tel:[phone] Family History Family Member Type Diagnosis Age At Onset No Information Payers Payer name Insurance type Covered green party ID Dakotah dela cruz(s) [facility] CI [id number] Social History Type Description Quantity Date Captured [...]
== END 2023-10-21 13:51 | disposition home or self-care (01) ==
LOC: RAD 13:51
PROVIDERS: PCP Family Medicine; Visit Provider Family Medicine
DX: Z78.0 Asymptomatic menopausal state (principal); M85.89 Other specified disorders of bone density and structure, multiple sites
CPT/HCPCS: 77080

== ENCOUNTER 2023-12-13 08:09 | Outpatient (CLI) | payer MEDICARE, BC, SELFPAY | END 2023-12-13 08:10 | disposition home or self-care (01) | LOC: NFLDREF 12-15 17:08 | PROVIDERS: PCP Family Medicine; Referring Provider Family Medicine; Visit Provider Family Medicine | DX: R53.83 Other fatigue (principal); E03.9 Hypothyroidism, unspecified; E55.9 Vitamin D deficiency, unspecified; M81.0 Age-related osteoporosis without current pathological fracture; G25.81 Restless legs syndrome; R73.03 Prediabetes; R03.0 Elevated blood-pressure reading, without diagnosis of hypertension; E66.01 Morbid (severe) obesity due to excess calories | CPT/HCPCS: 80053; 82306; 84443 ==

== ENCOUNTER 2024-07-25 18:22 | Outpatient (CLI) | payer MEDICARE, BC, SELFPAY ==
--- NOTE | 2024-07-25 18:20 | CRLHL7_ITS ---
For Patients: As a result of the Century Cures Act, medical imaging exams and procedure reports are released immediately into your electronic medical record. You may view this report before your referring provider. If you have questions, please contact your health care provider. INDICATION: BILATERAL SCREENING MAMMOGRAM, ASYMPTOMATIC 73 F COMPARISON: 07/13/23, 07/07/22, 02/04/21 TECHNIQUE: CC and MLO views were obtained. These mammographic images have been obtained using full-field digital technique. These mammographic images were interpreted with the benefit of computer aided detection and tomosynthesis. BREAST COMPOSITION: The breasts are almost entirely fatty. FINDINGS: No suspicious findings. ASSESSMENT: BI-RADS 2 Benign RECOMMENDATION: Annual screening mammogram. A lay language report of this examination will be provided to the patient. Dictated by: Joel Meehan MD @ 08/02/2024 09:58:00 (Electronically Signed)
== END 2024-07-25 18:23 | disposition home or self-care (01) ==
PROVIDERS: PCP Family Medicine; Visit Provider Family Medicine
DX: Z12.31 Encounter for screening mammogram for malignant neoplasm of breast (principal)
CPT/HCPCS: 77063; 77067

== ENCOUNTER 2024-09-15 08:55 | Outpatient (CLI) | payer MEDICARE, BC, SELFPAY | END 2024-09-15 08:56 | disposition home or self-care (01) | LOC: NFLDREF 09-18 16:55 | PROVIDERS: PCP Family Medicine; Referring Provider Family Medicine; Visit Provider Family Medicine | DX: E78.5 Hyperlipidemia, unspecified (principal); E03.9 Hypothyroidism, unspecified; G25.81 Restless legs syndrome; E55.9 Vitamin D deficiency, unspecified; M81.0 Age-related osteoporosis without current pathological fracture; R53.83 Other fatigue | CPT/HCPCS: 80053; 80061; 82306; 84439; 84443 ==

== ENCOUNTER 2024-09-18 12:47 | Emergency (ER) | payer MEDICARE, BC, SELFPAY ==
--- OUTSIDE RECORDS SUMMARY | 2024-09-18 12:51 | XMS_ITS | Data Portability ---
Author Organization [place] - [facility], [employer] Address [address] [place] [address] Assessment Encounter Date Assessment Date Assessment LastModified [...] trial shoes and devices and ped pillows. Not available 07/17/2022 12:43:12 08/06/2022 08/06/2022 We [...] time today discussing treatment with the patient. [email or web address] Not available 08/06/2022 19:34:32 09/24/2022 09/24/2022 We [...] time today discussing treatment with the patient. [email or web address] Not available 09/24/2022 10:23:40 Plan of Treatment Reminders Order Date Submit Date Provider Last Modified By Organization Details Last Modified Time Details Appointments None record ed. Lab None record ed. Referral None record ed. Procedures None record ed. Surgeries None record ed. Imaging XR, foot, 3 or more view 023 07/18/19 23 ELVIA [facility], [address] [place] [address], [id number], 21:50:41 Medication Orders None record ed. Patient TargetsNo targets recorded. Patient InstructionsNo instructions recorded. Reason for Referral None Reported. Results Created Date Observation Date Name Description Value Unit Range Abnormal Flag Note LastModifiedBy Organization Detail LastModifiedTime 07/18/19 XR, foot, 3 or more view No observ ation record ed. [address], [address], 07/17/2022 12:37:45 Result Notes None recorded. Medical Equipment None Reported. Allergies Allergen ID Allergen Name Allergen Category Reaction Reaction Severity Criticality Documentation Date Start Date Code Code System Note Provider Name and Address Organization Details Recorded Time 64661 cat dander environme nt Not available Not available Not available 07/17/2022 52506 UNK Vandana Nik null, [place] - [facility] 3 08:56:39 06663 house dust mite environme nt Not available Not available Not available 07/17/2022 66314 UNK Vandana Nik null, [place] - [facility] 08:56:51 99026 mold extract environme nt Not available Not available Not available 07/17/2022 51136 8 RxNorm Vandana Nikelsa berumen [place] - [facility] 3 08:56:57 52852 tree and shrub pollen environme nt,medica tion Not available Not available Not available 07/17/2022 90726 UNK Vandana Nikelsa berumen [facility] 08:57:12 Medications Name Sig Start Date Stop [...] Updated DateTime 07/17/2022 165.1 cm 43.3 kg/m2 041278.02 g Vandana MALDONADO - [facility] 07/17/2022 08:56:32 Social History None recorded. Functional Status None recorded. Mental Status None recorded. Family History Nothing Reported. Medical History No medical history recorded. Gynecological HistoryNo gynecological history recorded. Obstetrics History GPAL:G 0 P 0 0 0 0 Past Encounters Encounter ID Performer Location Encounter Start Date Encounter Closed Date Diagnosis/Indication Diagnosis SNOMED-CT Code Diagnosis ICD10 Code Diagnosis Note [id number] Shad Christensen DPM [facility] [address] [place] [phone] 4 07/16/2022 09:54:54 07/17/2022 13:02:54 Pain in left foot [id number] 83966 M79.672 Pain in right foot 05663 90664 74211 M79.671 Chronic low back pain 27 7597673 M54.50 Functional gait abnormality [id number] 9103 R26.9 [id number] Shad Christensen DPM [facility] [address] [place] [id number] 4 08/06/2022 11:59:11 08/07/2022 16:34:27 Pain in left foot [id number] 98817 M79.672 Pain in right foot 08861 02620 86385 M79.671 Antalgic gait 65480938 R 26.89 [id number] [facility] [address] [place] [address] [id number] 4 09/24/2022 09:52:04 09/24/2022 11:12:40 Pain in left foot 0201090878 82315 M79.672 Pain in right foot 29626 47933 28495 M79.671 Antalgic gait 96339587 R 26.89 Health Concerns Section Related Observation LastModified by Organization Detai ls LastModified Time None Recorded Concern Status LastModified by Organization Details LastModified Time None Recorded Advance Directives Directive None Recorded Payers Insurance Date Sequence Insurance Name Policy Number Policy Lala Covered Member ID Lala Member ID Guarantor Name 09/23/2022 1 [place] (MEDIC[place]AC[place] PPO) [id number] Mindi Caba [id number] Mindi Caba 07/16/2022 *SELF PAY* Ramiro Caba Notes Date Note Type Note Provider Name and Address Organization Details Recorded Time 07/16/2022 text/html increasing foot pain and difficulty walking for years. Fell off a step stool 5 years ago. Got orthotics and a couple steroid injections from Dr. Braga. Had back sx l45 fusion 20 years ago. B/L hips and knees replaced. Shad Christensen, RUBI [address] [place], [address], [facility] 07/17/2022 12:43:16 08/06/2022 text/html Pt. has a histor y of foot pain, knee pain and postural symptoms making it difficult for her to walk. She would like to walk for exercise. Shad Christensen DPM [address] [place], [address], [facility] 08/06/2022 19:34:39 09/24/2022 text/html Pt. has a histor y of foot pain, knee pain and postural symptoms making it difficult for her to walk. She would like to walk for exercise. SHe has been walking more and faster with [employer]. She feels her stability has improved. Shad Christensen DPM [address] [place], [address], [facility] 09/24/2022 10:24:05 OBGyn Episode No OBEpisode recorded.
--- OUTSIDE RECORDS SUMMARY | 2024-09-18 12:51 | XMS_ITS | Encounter Summary ---
Author Organization [place] Address [address] 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 Author MYC ECC SURG ENROLL Care Plan MyC ECC SURG ENROLL No Rashmi Kelley, RN Care pathway for general surgery Care Plan Care pathway for general surgery No Niki Molina MYC ECC SURG DAY 10 MED Care Plan Care pathway for general surgery No Niki Molina documented as of this encounter Visit Diagnoses Not on filedocumented in this encounter Additional Health Concerns Active Problems Noted Date Diagnosed Date MyC ECC SURG ENROLL 06/27/2024 Care pathway for general surgery 07/03/2024 documented as of this encounter Care Teams Celluloid Trimmer Relationship Specialty Start Date End Date Delphine Batista MD [facility] & [address] [address] PCP - General Family Medicine 06/07/24 documented as of this encounter
--- OUTSIDE RECORDS SUMMARY | 2024-09-18 12:51 | XMS_ITS | Encounter Summary ---
Author Organization [place] Address [address] [facility] 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
--- OUTSIDE RECORDS SUMMARY | 2024-09-18 12:51 | XMS_ITS | Clinical Summary ---
Author Organization [employer] [facility] Address [address] [place] [address] Care Team Providers Care Svp Digital Sales Name Role Phone Delphine Batista MD Primary Care Provider + Allergies Active Allergy Reactions Criticality Noted Date Comments House Dust Cough 09/24/2014 Mold Extracts Cough 09/24/2014 Tree Pollen-White Birch (Bet saul Verrucosa),Std Cough 09/24/2014 Medications MULTI-VITAMIN ORAL TAB one tablet daily ? 0 1 Active fexofenadine (CECI) 180 mg tabletIndications:A llergic conjunctivitis TAKE 1 TABLET BY MOUTH DAILY WITH A MEAL 90 tablet 1 1 Active azelastine 0.05% ophthalmic (OPTIVAR) 0.05 % ophthalmic solution 1 Drop 2 times daily. 1 Bottle 0 3 Active cholecalciferol (VITAMIN D) 1,000 unit tablet Take 1 tablet by mouth once daily. 0 4 Active albuterol HFA (PROAIR HFA) 90 mcg/actuation inhalerIndications: Unspecified asthma(493.90) Inhale 1 Puff by mouth every 4 hours if needed. 1 Inhaler 11 5 Active rOPINIRole (REQUIP) 1 mg tabletIndications:R estless legs syndrome (RLS) Take 1 tablet by mouth at bedtime. 90 tablet 3 5 Active simvastatin (ZOCOR) 10 mg tabletIndications:M ixed hyperlipidemia Take 1 tablet by mouth at bedtime. 90 tablet 3 5 Active levothyroxine (SYNTHROID) 137 mcg tabletIndications:H ypothyroidism, unspecified hypothyroidism type Take 1 tablet by mouth once daily. 90 tablet 3 5 Active fluticasone (50 mcg per actuation) nasal solution (FLONASE)Indication s:Allergic rhinitis, unspecified allergic rhinitis type Inhale 1-2 Sprays into both nostrils once daily. 1 Bottle 0 5 Active mometasone-formoter ol (DULERA) 100-5 mcg/actuation inhaler Inhale 2 Puffs by mouth 2 times daily. 1 Inhaler 0 5 Active benzonatate (TESSALON PERLES) 100 mg capsuleIndications: Cough Take 1 capsule by mouth 3 times daily if needed for Cough. 30 capsule 0 5 Active mirtazapine (REMERON) 30 mg tabletIndications:M ild major depression Take 1 tablet by mouth at bedtime. 90 tablet 1 6 Active ferrous sulfate, 65 mg elemental, tabletIndications:I trudi deficiency anemia TAKE 1 TABLET BY MOUTH ONCE DAILY WITH A MEAL 90 tablet 6 Active hyaluronidase in lido 2%-bupiv. 0.75% - long eye block, clinic supply, Use as directed for procedure. Refrigerate. Exp: 02/11/24 DOS: 02/11/24 10 mL 02/04/2024 11:37 AM HOP FARMER 4 Active Active Problems Problem Noted Date Diagnosed Date Colon cancer screening 02/15/2011 Unspecified hypothyroidism 07/03/2009 CKD (chronic kidney disease) stage 3, GFR 30-59 ml/min 06/25/2009 Morbid obesity 11/14/2008 Ganglion cyst 11/14/2008 Allergic conjunctivitis 10/03/2008 Hypothyroid 08/09/2008 DARIEN (iron deficiency anemia) 08/09/2008 Overview (02/12/2010): Resolved with hiatal hernia repair. Did require transfusion and iron supplementation Mixed hyperlipidemia 05/15/2008 Unspecified asthma(493.90) 01/24/2008 GERD Unspecified sleep apnea Overview (02/12/2010): Cannot tolerate CPAP Diagnosed in 2004 Hypertension Restless legs syndrome (RLS) Family hx-colon cancer Overview (01/24/2008): Last scope 2005, neg due 5 years Resolved Problems Problem Noted Date Diagnosed Date Resolved Date Acute bronchitis 01/24/2008 08/09/2008 Unspecified sleep apnea 12/15/200401/27 DISPLACEMENT LUMBAR INTERVER TEBRAL DISC WITH FUSION 09/200112/15/2004 08/09/2008 DYSPNEA ON EXERTION 01/24/20 08 FATIGUE 01/24/2008 OBESITY 11/14/2008 SCIATICA - RIGHT LEG RESOLVED 01/24/2008 Unspecified gastritis and ga stroduodenitis without mention of hemorrhage 08/09/2008 Overview (01/24/2008): Due to NSAIDs and had anemia Other and unspecified hyperlipidemia 02/12/2010 Chronic rhinitis 08/09/2008 Immunizations Immunization Administration Dates Next Due Influenza A (H1N1), Inactiva jacque (Age >=3 Years) 03/14/2009 Influenza, IIV3 (Age >=3 years) 11/19/2011,03/02,12/28/1997 Tdap 04/23/2008 Zoster (Zostavax-ZVL, live) 09/08/2012 Family History Medical History Relation Name Comments Cancer-prostate Brother 1 Cancer-prostate Brother 2 Cancer-colon Mother Hypertension Mother Genetic Other Mother at age 68 from colon cancer. Father at age 89 from pneumonia. He had a history of an IA. She has 5 siblings with no known cardiac disease. Cancer-colon Sister 1 Cancer No Family History Cancer-breast No Family History Cancer-ovarian No Family History Relation Name Status Comments Brother 1 Alive DM 2 Brother 2 Alive Brother 3 Alive Daughter Alive Father (Age 89) IA Mother (Age 68) colon canc er Other Sister 1 Alive Sister 2 Alive Son 1 Alive Son 2 Alive Social History Tobacco Use Types Packs/Day Years Used Date Smoking Tobacco: Never Smokeless Tobacco: Never Tobacco Cessation:Counseling Given: Yes Alcohol Use Standard Drinks/Week Comments Yes 0 (1 standard drink = 0.6 oz pur e alcohol) 1 glass laine weekly Comments No Sex and Gender Information Value Date Recorded Sex Assigned at Not on file Legal Sex Female 5:24 AM HOP FARMER Gender Identity Not on file Sexual Orientation Not on file 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 Not on file Not on file Obstetrics History Para Term [...] 72 10/20/2023 10:00 AM CDT Temperature 36.7 C (98 F) 02/05/2016 10:27 AM HOP FARMER Respiratory Rate 18 03/14/2015 11:36 AM HOP FARMER Oxygen Saturation 95% 10/20/2023 10:00 AM CDT [...] age 18+ 1970 Hepatitis C screening for age 18-79 1970 Pneumococcal series for age 50+ (1 of 1 - PCV) 2002 RSV vaccine for adults or (1 - Risk 60-74 years 1-dose series) 2012 Zoster (shingles) series for age 50+ (2 of 3) 11/03/2012 09/08/2012 Colonoscopy through age 75 08/22/201508/21 (Completed outside of [facility]), 01/27/2006, 03/29/2005 (Completed outside of [facility]) Mammogram for age 45-75 09/21/2015 09/21/19 15, 09/18/2013, 08/31/2012, Additional history exists DEXA/DXA scan for age 65+ 2017 07/04/2009, 05/2008 Medicare Wellness for age 65+ 2017 Tetanus booster 04/23/2018 04/23/2008 Lipids for age 45-75 09/25/2019 09/24/2014, 09/18/2013, 09/08/2012, Additional history exists COVID-19 vaccine series ( season) 2023 01/09/2023, 01/14/2022, 01/28/2021, Additional history exists Influenza Vaccine (Season Ended) 2024 11/19/2011, 03/02/2001, 12/28/1997 Tdap Completed 04/23/2008 Hepatitis B series for 19+ Aged Out N o longer eligible based on patient's age to complete this topic Procedures Procedure Name Priority Date/Time Associated Diagnosis Comments LIPID PANEL W REFLEX MEASURED LDL Routine 09/24/2014 9:32 AM CDT Mixed hyperlipidemia XR MAMMO BILAT SCREEN FFDM (IA) Routine 09/20/2014 7:38 AM CDT Other screening mammogram XR DXA BONE DENSITY 2 SITES AXIAL Routine 07/04/2009 3:12 PM CDT Bone metabolism disorder SCAN-COLONOSCOPY 01/27/2006 12:0 0 AM HOP FARMER from Last 3 Months or Most Recently Relevant to Health Maintenance Results * LIPID PANEL W REFLEX MEASURED LDL (09/24/2014 9:32 AM CDT) CHOLESTEROL,TOTAL 171 100 - 199 mg/dL 09/24/2014 10:29 AM CDT [facility] TRIGLYCERIDES 91 <150 mg/dL 09/24/2014 10:29 AM CDT [facility] HDL CHOLESTEROL 54 >40 mg/dL 5 10:29 AM CDT [facility] NON-HDL CHOLESTEROL 117 <145 mg/dl 09/24/2014 10:29 AM CDT [facility] CHOL/HDL RATIO 3.17 <4.50 09/24/2014 10:29 AM CDT [facility] LDL CHOLESTEROL 99 <=130 mg/dL 09/24/2014 10:29 AM CDT [facility] PATIENT STATUS FASTING 09/24/2014 10:29 AM CDT [facility] Blood specimen (specimen) BLOOD SPECIMEN / Unknown Venipuncture / Unknown 09/24/2014 9:32 AM CDT 09/24/2014 9:32 AM CDT Maia MARTINEZ CHEMISTRY Final Result [address] [address] * XR MAMMO BILAT SCREEN FFDM (09/20/2014 7:38 AM CDT) Anatomical Region Laterality Modality BREASTS, Breast Left, Breast Right Bilateral Mammography Impressions 09/20/2014 9:07 AM CDT There is no radiographic evidence for malignancy. Recommend annual mammograms. A lay language report of this examination will be provided to the patient. MAMMOGRAM ASSESSMENT: ACR 1 Negative Narrative 09/20/2014 9:07 AM CDT XR MAMMO BILAT SCREEN FFDM [G0202.0] CLINICAL HISTORY: This is an asymptomatic 63 y.o. patient. INDICATION FOR EXAM: Mammogram Screening. TECHNIQUE: CC & MLO views were obtained. This digital study was evaluated with the assistance of Computer-Aided Detection. COMPARISON FILM: Yes 09/18/13 [facility] 08/31/12 [facility] FINDINGS: Mammographically, the breast tissue is almost entirely fat. There are no dominant masses, suspicious micro calcifications or areas of architectural distortion. Procedure Note Alexi Bess MD - 09/20/2014 XR MAMMO BILAT SCREEN FFDM [G0202.0] CLINICAL HISTORY: This is an asymptomatic 63 y.o. patient. INDICATION FOR EXAM: Mammogram Screening. TECHNIQUE: CC & MLO views were obtained. This digital study was evaluatedwith the assistance of Computer-Aided Detection. COMPARISON FILM: Yes 09/18/13 [facility] 08/31/12 [facility] FINDINGS: Mammographically, the breast tissue is almost entirely fat.There are no dominant masses, suspicious micro calcifications or areas ofarchitectural distortion. IMPRESSION: There is no radiographic evidence for malignancy. Recommendannual mammograms. A lay language report of this examination will be provided to the patient. MAMMOGRAM ASSESSMENT: ACR 1 Negative Maia MARTINEZ MAMMO Final Result * XR DEXA BONE DENSITY 2 SITES (07/04/2009 3:12 PM CDT) Anatomical Region Laterality Modality Spine, HIPS, HIPL, HIPR Computed Radiography Narrative 07/05/2009 1:44 PM CDT DEXA BONE MINERAL DENSITY STUDY CLINICAL INDICATIONS The patient is a 58-year-old postmenopausal female. The patient is taking thyroid replacement therapy and calcium supplementation. FINDINGS Bone mineral density study was performed using the Hologic bone densitometer. The results of the study expressed as bone mineral density (BMD) are as follows: AP LEFT FOREARM DENSITY [...] bone mineral density for fragility fracture. 2. In the hip, the lowest significant T-score of the total or femoral neck is used. 3. For comparison with previous studies, L1 to L4 and the total hip are used because larger areas give better precision. 4. If the BMD has increased or is stable compared to previous studies, the patient is responding satisfactorily according to the International Society for Clinical Densitometry (ISCD). 5. General recommendations for follow-up studies for patients with abnormal bone mineral density: Typically one year after initiation or change in therapy is appropriate, with longer intervals once therapeutic effect is established. In conditions associated with rapid bone loss, such as glucocorticoid therapy, testing more frequently is appropriate. 6. DXA scans are compared to prior studies for a patient only when 2 (or more) studies were performed on the same scanner. It is not possible to compare data generated on one scanner to data from another because there are not standards in DXA equipment as there are in mammography and other areas of radiology. This applies even if the two scanners are made by the same portfolio accountant. /jgs [facility] Procedure Note Devon Lima MD - 07/06/2009 DEXA BONE MINERAL DENSITY STUDY CLINICAL INDICATIONS The patient is a 58-year-old postmenopausal female. The patient is takingthyroid replacement therapy and calcium supplementation. FINDINGS Bone mineral density study was performed using the [email or web address] bonedensitometer. The results of the study expressed [...] if the two scanners are made by the[employer] portfolio accountant. /jgs [facility] Terell Malloy MD DEXA Edited * SCAN-COLONOSCOPY (01/27/2006 12:00 AM HOP FARMER) Narrative Procedure Note Scanner - 01/27/2006 12:00 AM HOP FARMER us Scanner OTHER Final Result from Last 3 Months or Most Recently Relevant to Health Maintenance Insurance BLUE CROSS [employer] LACS BLUE MR PB ONLY Advance Directives Documents on File Type Date Recorded Patient Rub[employer] Stamps And Dies Supervisor Expl anation Healthcare Directive 05/22/2015 5:04 PM 08 MAY 2015 Healthcare Directive 05/16/2015 4:25 PM He althcare Directive * Full Code (Latest Code Status on File) Date Activated Date Inactivated Comments 02/16/2011 7:10 AM 02/17/2011 2:12 AM Care Teams Svp Digital Sales Relationship Specialty Start Date End Date Delphine Batista MD [address] [place] [address] PCP - General Family Practice 10/28/21
--- OUTSIDE RECORDS SUMMARY | 2024-09-18 12:51 | XMS_ITS | Encounter Summary ---
Author Organization [place] Address [address] [facility] 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
--- OUTSIDE RECORDS SUMMARY | 2024-09-18 12:51 | XMS_ITS | Clinical Summary ---
Author Organization [facility] Address [address] [place] [id number] Care Team Providers Care Grinder Gear Name Role Phone Delphine Batista MD Primary Care Provider Source Comments You are receiving this document as you are listed as the primary care provider,follow-up provider, or the patient has been referred to you for consultation.This is in compliance with the Medicare and[facility] EHR Incentive Program,which states Providers who transition their patient to another setting of careor provider of care or refers their patient to another provider of care shouldprovide summary care record for each transition of care or referral. textPlus Allergies Active Allergy Reactions Criticality Noted Date Comments Dust Other, see comments 01/15/2021 Sinus issues Molds & Smuts Cough 01/15/2021 Sinus issues Other Other, see comments 01/15/2021 Perfumes - eyes water, cough Cat dander - sinus issues Pollen Extract Cough 01/15/2021 Medications * This document contains information received from the source organization and may not represent a complete record from that organization. BUDEPRION XL 300 MG OR TB24 1 [...] 500-25 MG OR TABS 1 tablet daily Activ e FLUTICASONE PROPIONATE HFA 44 MCG/ACT IN AERO 1 spray twice daily Active cholecalcifero l (VITAMIND3) 2000 UNITS tablet Take 1 tablet by mouth daily (every 24 hours). Indications: PREVENTION OF VITAMIN D DEFICIENCY 2 Active estrogens, conjugated (PREMARIN) 0.625 MG/GM vaginal cream Insert 1 Applicatorful vaginally. 4 Active oxybutynin (DITROPANXL) 10 MG 24 hour release tablet Take 10 mg by mouth. Active Zinc Acetate 25 MG Take 50 mg by mouth. Active Famotidine-Ca Carb-Mag Hydrox 10-800-165 MG Chew and swallow 1 Tablet by mouth daily. 0 Active fexofenadine (CECI) 180 MG tablet 0 Active guaiFENesin (MUCINEX) 600 MG 12 hour release tablet Take 600 mg by mouth at bedtime as needed. 1 Active Melatonin 5 MG 1 Active triamcinolone (NASACORT AQ) 55 MCG/ACT nasal inhaler 0 Active mirtazapine (REMERON) 45 MG tablet 1 Active rOPINIRole (REQUIP) 2 MG tablet 1 Active simvastatin (ZOCOR) 20 MG tablet 1 Active levothyroxine (SYNTHROID) 150 MCG tablet Take 150 mcg by mouth daily. Active omeprazole (PRILOSEC) 20 MG capsule Take 1 Capsule (20 mg) by mouth daily. Take 1 hour before a meal. 90 Capsule 10/01/2021 10:45 AM CDT 2 Active Active Problems Patient Care Coordination No te Formatting of this note migh t be different from the original. Interactive with Asthma Disease Management Program: , opt #5, for COPD and Asthma Problem Noted Date Diagnosed Date Complication of gastric banding 07/23/2021 Overview (07/23/2021): Added automatically from request for surgery [id number] Dysphagia 07/23/2021 Overview (07/23/2021): Added automatically from request for surgery [id number] Depressive disorder 02/09/2021 Hypothyroidism 02/09/2021 Morbid obesity with BMI of 40.0-44.9, adult 10/27 LAP-BAND surgery status 05/14/2009 Overview (09/30/2021): Laparoscopic adjustable gastric band, APS Removal of adjustable gastric band and all it's components - 09/30/2021 Sleep apnea 05/09/2009 Overview (11/18/2016): LW Modifier: Severe, AHI 73/hour ; Obstructive Sleep Apnea Hypopnea Resolved Problems Problem Noted Date Diagnosed Date Resolved Date Obesity 03/09/2012 11/06/2015 Morbid obesity 05/14/2009 03/09/2012 Overview (11/18/2016): Obesity Morbid Social History Tobacco Use Types Packs/Day Years Used Date Smoking Tobacco: Never Smokeless Tobacco: Never Alcohol Use Standard Drinks/Week Comments Not Currently 0 (1 standard drink = 0.6 oz pur e alcohol) occasionally Comments No Sex and Gender Information Value Date Recorded Sex Assigned at Female 01/13/2021 5:27 PM CDT Legal Sex Female 5:02 AM CDT Gender Identity Female 01/13/2021 5:27 PM CDT Sexual Orientation Not on file Last Filed Vital Signs Vital Sign Reading Time Taken Comments Blood Pressure 126/71 10/01/2021 10:06 AM CDT Pulse 68 10/01/2021 10:06 AM CDT Temperature 36.7 C (98 F) 10/01/2021 5:49 AM CDT Respiratory Rate 18 [...] Services) 1950 Medicare Annual Wellness Visit 1950 RSV Vaccine (1 - Risk 60-74 years 1-dose series) 2012 Mammogram 09/18/2014 09/18/2013 Cholesterol 05/09/2015 05/09/2010, 10/24/2009 Dexa 2017 Colonoscopy 02/16/2021 02/16/2011 Pneumococcal Vaccine 50+ Yrs (3 of 3 - PCV) 10/05/2022 10/05/2017, 10/02/2016 COVID-19 Vaccine (4 - season) 2023 01/28/2021, 06/20/2020, 05/22/2020 Influenza Vaccine (Season Ended) 2024 12/05/2020, 12/06/2019, 01/23/2019, Additional history exists DTaP/Tdap/Td Vaccine (3 - Tdap) 10/18/2028 10/18/2018, 04/23/2008 Zoster/Shingles Vaccine Completed 05/08/19, 01/30/2019, 02/25/2017, Additional history exists HepA Vaccine Aged Out No longer eligi ble based on patient's age to complete this topic HepB Vaccine Aged Out No longer eligi ble based on patient's age to complete this topic Hib Vaccine Aged Out No longer eligi ble based on patient's age to complete this topic MCV4 Vaccine Aged Out No longer eligi ble based on patient's age to complete this topic Meningococcal B Vaccine Aged Out No l onger eligible based on patient's age to complete this topic Medical Devices Implanted Type Area Works Manager Device Identifier Shelf Expiration Date Model / Serial / Lot Mesh Bio-A - [id number] Implanted:Qty: 1 on 09/30/2021 by Devon Cool MD at [facility] [employer] 09/05/2023 [id number] / / [id number] Procedures Procedure Name Priority Date/Time Associated Diagnosis Comments LIPID PANEL & DIRECT LDL (IF NEEDED) Routine 05/09/2010 9:37 AM SENIOR STORAGE ENGINEER from Last 3 Months or Most Recently Relevant to Health Maintenance Results * Lipid Panel and Direct LDL(If Needed) (05/09/2010 9:37 AM SENIOR STORAGE ENGINEER) Cholesterol 160 0 - 200 mg/dL HP CONVERSION Triglycerides 83 0 - 149 mg/dL HP CONVERSION HDL Cholesterol 56 >39 mg/dL HP CONVERSION Cholesterol/HDL Ratio Screen 2.9 No normal range HP CONVERSION LDL Calculated 87 19 - 130 mg/dL HP CONVERSION Hours Fasting 12.0 No normal range HP CONVERSION 05/09/2010 9:37 AM SENIOR STORAGE ENGINEER Pamela Hicks PA-C LAB_1 Final Result HP CONVERSION from Last 3 Months or Most Recently Relevant to Health Maintenance Insurance MEDICARE MANAGED CARE [facility] Advance Directives * Full Code (Latest Code Status on File) Date Activated Date Inactivated Comments 09/30/2021 12:30 PM 10/01/2021 12:49 PM Care Teams Grinder Gear Relationship Specialty Start Date End Date Delphine Batista MD [address] [place] [address] PCP - General Family Practice 09/30/21
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
[2024-09-18 13:13] VITALS: BP 130/60; PULSE 72; RESP 18; TEMP 36.5; O2SAT 99; BMI 41.6
--- NOTE | 2024-09-18 13:27 | ED.GENADULT ---
HPI - General Adult General Chief complaint: Back Injury/Pain Stated complaint: right side pain that shoot to back as well Time Seen by Provider: 09/18/24 12:54 Source: patient Mode of arrival: ambulatory Limitations: no limitations History of Present Illness HPI narrative: Patient is a 73-year-old female presenting today with right-sided abdominal flank pain. Patient states that she had mid back discomfort about a week ago and 2 days ago the pain started radiating through the flank and into the anterior abdomen. Nothing seems to make the pain better or worse it is constant and dull but then becomes sharp and excruciating multiple times per day, often with movement. She denies any nausea or vomiting. No diarrhea. She has mild constipation but has had bowel movements for the last 2 days. She denies any dysuria, urinary frequency or urgency. She states that the car ride here bothered her and bumps made her back pain worse. She denies blood in her urine or changes in color or smell of her urine. She did not eat today but she has been eating without difficulty all week. Related Data Home Medications ?Medication ?Instructions ?Recorded ?Confirmed melatonin 5 mg capsule 5 mg PO .qhs PRN 11/06/21 06/27/24 Fish Oil 09/18/24 calcium 09/18/24 clobetasol 0.05 % topical ointment topical BID 09/18/24 estradiol 09/18/24 loratadine 10 mg tablet 10 mg PO DAILY 09/18/24 09/18/24 (Allerclear) melatonin 09/18/24 mirtazapine 7.5 mg tablet 7.5 mg PO DAILY 09/18/24 09/18/24 omeprazole 20 mg capsule,delayed 20 mg PO DAILY 09/18/24 09/18/24 release simvastatin 20 mg tablet 20 mg PO DAILY 09/18/24 09/18/24 Previous Rx's ?Medication ?Instructions ?Recorded albuterol sulfate 90 mcg/actuation 2 inh inhalation Q3-4H PRN 08/04/22 aerosol inhaler shortness of breath or wheezing #6.7 grams azelastine 137 mcg (0.1 %) nasal 2 spray intranasal BID #30 mL 09/08/23 spray bupropion HCl 300 mg 24 hr tablet, 300 mg PO QAM #90 tabs 09/08/23 extended release (Wellbutrin XL) guaifenesin 600 mg tablet, 600 mg PO .Q.day #90 tabs 09/08/23 extended release 12 hr levothyroxine 150 mcg tablet 150 mcg PO DAILY #90 tabs 09/08/23 mirtazapine 15 mg tablet (Remeron) 7.5 mg (1/2 x 15 mg) PO QHS #45 09/08/23 tabs montelukast 10 mg tablet 10 mg PO QHS #90 tabs 09/08/23 omeprazole 20 mg capsule,delayed 20 mg PO QDAY #90 caps 09/08/23 release ropinirole 2 mg tablet 2 mg PO .Bedtime #90 tabs 08/31/24 simvastatin 20 mg tablet 20 mg PO .Bedtime #90 tabs 08/31/24 Allergies Allergy/AdvReac Type Severity Reaction Status Date / Time Cat hair extract Allergy Mild Rhinitis Uncoded 06/27/24 09:37 Dust Allergy Mild Rhinitis Uncoded 06/27/24 09:37 Molds & Smuts Allergy Mild Rhinitis Uncoded 06/27/24 09:37 Pollen Allergy Mild Rhinitis Uncoded 06/27/24 09:37 Review of Systems Status of ROS: Reports: 10 or more systems reviewed and unremarkable except as noted in History and below [facility] Medical History Prediabetes (12/15/23) ?R73.03 - Prediabetes (ICD-10) LLQ pain ?R10.32 - Left lower quadrant pain (ICD-10) Osteoarthritis involving multiple joints on both sides of body ?M15.9 - Polyosteoarthritis, unspecified (ICD-10) Restless legs syndrome ?G25.81 - Restless legs syndrome (ICD-10) Pulmonary embolism (2016) ?I26.99 - Other pulmonary embolism without acute cor pulmonale (ICD-10) Obstructive sleep apnea syndrome (2001) ?G47.33 - Obstructive sleep apnea (adult) (pediatric) (ICD-10) Morbid obesity with body mass index (BMI) of 40.0 to 44.9 in adult ?E66.01 - Morbid (severe) obesity due to excess calories (ICD-10) ?Z68.41 - Body mass index [BMI] 40.0-44.9, adult (ICD-10) Hypothyroidism ?E03.9 - Hypothyroidism, unspecified (ICD-10) Hyperlipemia ?E78.5 - Hyperlipidemia, unspecified (ICD-10) GERD (gastroesophageal reflux disease) ?K21.9 - Gastro-esophageal reflux disease without esophagitis (ICD-10) Depression ?F32.A - Depression, unspecified (ICD-10) Asthma ?J45.909 - Unspecified asthma, uncomplicated (ICD-10) Allergic conjunctivitis and rhinitis ?H10.10 - Acute atopic conjunctivitis, unspecified eye (ICD-10) ?J30.9 - Allergic rhinitis, unspecified (ICD-10) Surgical History Hx of thumb surgery (03/2024) ?Z98.890 - Other specified postprocedural states (ICD-10) Cyst of finger (09/2023) 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) ?N90.4 - Leukoplakia of vulva (ICD-10) History of removal of laparoscopic gastric banding device (09/30/21) ?Z98.84 - Bariatric surgery status (ICD-10) Status post operation on paranasal sinus (1998) ?Z98.890 - Other specified postprocedural states (ICD-10) Status post lumbar spinal fusion (2001) ?Z98.1 - Arthrodesis status (ICD-10) Status post laparoscopic cholecystectomy (2001) ?Z90.49 - Acquired absence of other specified parts of digestive tract (ICD-10) Status post endometrial ablation (2000) ?Z98.890 - Other specified postprocedural states (ICD-10) History of right cataract extraction (2000) ?Z98.41 - Cataract extraction status, right eye (ICD-10) History of laparoscopic adjustable gastric banding (2009) ?Z98.84 - Bariatric surgery status (ICD-10) History of carpal tunnel release of both wrists (1989) ?Z98.890 - Other specified postprocedural states (ICD-10) History of bilateral knee replacement (2012) ?Z96.653 - Presence of artificial knee joint, bilateral (ICD-10) History of bilateral hip replacements (2015) ?Z96.643 - Presence of artificial hip joint, bilateral (ICD-10) Family History Mother Colon cancer, Onset Age: 66 Depression Sister Colon cancer, Onset Age: 76 Father Diabetes Myocardial infarction, Onset Age: 55 Family/Other Diabetes Social History 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: , 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 , 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 Non-smoker Rarely consumes alcohol walks 3/ week 30min What is your current living situation?: I presently have a place to live Problems where you live: no known problems In the past 12 months, utilities in danger of being shut off: no In past 12 months, lack of transportation kept you from medical appts, meetings, work, or getting things needed for daily living: no In the past 12 mos, have been you worried that your food would run out before you had money to buy more?: never true In the past 12 mos, the food you bought just didn't last and you didn't have money to buy more?: never true Smoking Status: Never smoker Do you use any of these nicotine containing products: None How often do you have a drink containing alcohol: never AUDIT-C Alcohol total score: 0 Non-prescribed substance use: denies use How often does anyone, including family, friends and others, physically hurt you: never How often does anyone, including family, friends and others, insult or talk down to you: never How often does anyone, including family, friends and others, threaten you with harm: never How often does anyone, including family, friends and others, scream or curse at you: never Exam Narrative: Exam Narrative: Obese, well-developed patient, appears a bit uncomfortable. The Alert and oriented. Answers questions appropriately. Mood and affect are appropriate. Thoughts are goal oriented and rational. No tangential or magical thinking noted. Patient speaks in full sentences without needing to catch her breath. HEENT: Normocephalic atraumatic. Pupils are equally round reactive to light. Extraocular muscles are intact. Conjunctivae are moist without any icterus noted. Moist mucous membranes. Cardiovascular: Heart is regular rate and rhythm S1 and S2 are present without any murmurs. Lungs: Clear to auscultation bilaterally no wheezes rhonchi or rales are appreciated. Patient takes deep breaths without any discomfort. Abdomen: Soft and nondistended with normal bowel sounds. Patient has mild pain around McBurney's point, she also has right-sided CVA tenderness. She does not have any rebound tenderness. No pelvic discomfort. No right upper quadrant pain. Skin: Well perfused without any obvious rashes. Back: Normal appearance. Patient does have pain over the paraspinal musculature of the lower thoracic spine. Gently hitting her feet does not elicit abdominal pain. Const: Vital Signs, click to edit/add: Vital Signs - 24 hr 09/18/24 13:13 Temperature 97.7 F Pulse Rate [Pulse Oximeter] 72 Respiratory Rate 18 Blood Pressure [Ri ght Upper Arm] 130/60 Pulse Oximetry 99 Oxygen Delivery Me thod Room Air Course Course ED Course: Differential diagnosis includes renal stone, appendicitis, constipation, referred back pain, pyelonephritis, musculoskeletal pain. Blood work is unremarkable. Patient did receive a dose of IV Toradol which helped with her pain. Abdominal CT done without contrast did not show any stones, appendix was poorly visualized. She does have a lot of disc disease visualized. Discussed results with the patient. We discussed that we can reimage the abdomen with contrast to get a better look at the appendix however she has been having pain for over a week and has completely normal lab work and her pain started in her back so the likelihood of it being an appendicitis although not impossible is certainly low. Patient stated that she felt this was not necessary. Given the disc disease visualized on the CT patient does think that she may be having some referred pain from her back. Given her history and physical examination I do tend to agree with this. Vital Signs Vital signs: Initial Vital Signs Temperature 97.7 F 09/18/24 13:13 Temperature Source Temporal Artery Scan 09/18/24 13:13 Pulse Rate 72 09/18/24 13:13 Pulse Rhythm Regular 09/18/24 13:13 Respiratory Rate 18 09/18/24 13:13 Blood Pressure 130/60 09/18/24 13:13 Blood Pressure Mean 83 09/18/24 13:13 Blood Pressure Position Sitting 09/18/24 13:13 Pulse Oximetry 99 09/18/24 13:13 Oxygen Delivery Method Room Air 09/18/24 13:13 Vital Signs Temperature 97.7 F 09/18/24 13:13 Pulse Rate 72 09/18/24 13:13 Respiratory Rate 18 09/18/24 13:13 Blood Pressure 130/60 09/18/24 13:13 Pulse Oximetry 99 09/18/24 13:13 Oxygen Delivery Method Room Air 09/18/24 13:13 Temperature 97.7 F 09/18/24 13:13 Pulse Rate 72 09/18/24 13:13 Respiratory Rate 18 09/18/24 13:13 Blood Pressure 130/60 09/18/24 13:13 Pulse Oximetry 99 09/18/24 13:13 Oxygen Delivery Method Room Air 09/18/24 13:13 Medications Administered Medications: Discontinued Medications Generic Name Dose Route Start Last Admin Trade Name Monique PRN Reason Stop Dose Admin Ketorolac Tromethamine 30 mg 09/18/24 14:09 09/18/24 14:34 Ketorolac 30 Mg/Ml Inj IVP 09/18/24 14:10 30 mg ONCE ONE Administration Medical Decision Making MDM Narrative Medical decision making narrative: 73-year-old female with back, flank pain radiating to the anterior abdomen. Discussed potential diagnoses today. Patient is comfortable with symptom management at this time, she has an appointment with her primary tomorrow. She will be sent home with pain medications, side effects discussed. And she is instructed to have a low threshold to return to the ER. Medical Records Medical records reviewed: Yes I reviewed the patient's medical records Lab Data Lab results reviewed: Yes I reviewed the patient's lab results Labs: Lab Results 09/18/24 09/18/24 Range/Units 13:26 13:35 WBC 10.26 (4.50-11.00) K/uL RBC 4.45 (4.00-5.20) m/uL Hgb 13.0 (12.0-16.0) gm/dL Hct 40.6 (33.0-51.0) % MCV 91 (80-100) fL MCH 29 (26-34) pg MCHC 32 (32-36) gm/dL RDW Coeff of Sheng 13.4 (11.5-15.5) % Plt Count 345 (140-440) K/uL Neut % (Auto) 75.3 H (42.0-72.0) % Lymph % (Auto) 12.1 L (20-44) % Luce % (Auto) 9.5 (0.0-11.0) % Eos % (Auto) 2.4 (0.0-7.0) % Baso % (Auto) 0.3 (0.0-3.0) % Neut # (Auto) 7.70 H (1.7-7.0) K/uL Lymph # (Auto) 1.20 (0.90-2.90) K/uL Luce # (Auto) 1.00 H (0.00-0.90) K/UL Eos # (Auto) 0.25 (0.00-0.50) K/uL Baso # (Auto) 0.03 (0.00-0.30) K/uL Abs Immat Gran (auto) 0.04 (0.00-0.30) K/uL Imm/Tot Granulo (auto) 0.4 % Sodium 135 (135-149) mmol/L Potassium 4.5 (3.6-5.1) mmol/L Chloride 99 (96-114) mmol/L Carbon Dioxide 31 (20-32) mmol/L Anion Gap 5 L (7-15) mEq/L BUN 21 (7-30) mg/dL Creatinine 1.0 (0.5-1.5) mg/dL Estimated Creat Clear 46.43 Estimated GFR 60 ml/min Glucose 106 (60-115) mg/dL Lactate 1.0 (0.5-1.9) mmol/L Calcium 9.4 (8.4-10.6) mg/dL Total Bilirubin 0.4 (0.1-1.5) mg/dL Direct Bilirubin 0.1 (0.0-0.5) mg/dL AST 28 (12-35) U/L ALT 20 (4-35) U/L Alkaline Phosphatase 99 (40-150) U/L C-Reactive Protein 1.8 H (0.5-1.0) mg/dL Total Protein 7.3 (6.0-8.3) g/dL Albumin 4.1 (3.3-5.0) g/dL Lipase 36 (23-300) U/L Urine Color Yellow (Yellow) Urine Appearance Clear (Clear) Urine pH 7.0 (5.0-8.5) Ur Specific [place] 1.015 (1.000-1.030) Urine Protein Negative (Negative) Urine Glucose (UA) Negative (Negative) Urine Ketones Negative (Negative) Urine Blood Negative (Negative) Urine Nitrite Negative (Negative) Urine Bilirubin Negative (Negative) Urine Urobilinogen 0.2 (0.2-1.0) Ur Leukocyte Esterase Trace A (Negative) Urine RBC 0-2 (0-2) Urine WBC 2-5 (0-5) Ur Squamous Epith Cells None (None-Few) Urine Bacteria None (None) Imaging Data CT scan - abdomen: Attestation: I have reviewed the pertinent imaging results. Radiologist's impression: Comparison: None available. Findings: There is demonstration of a pulmonary nodule within the peripheral right lower lobe measuring 8.5 millimeters. Otherwise the lung bases are clear. The liver is normal in attenuation without intrahepatic biliary ductal dilatation. Prior cholecystectomy. Mild reservoir dilatation of the intrahepatic and common bile ducts. The spleen is normal in attenuation and size. Postoperative changes of the stomach status post likely partial gastrectomy with surgical chito seen at the fundus. There is the mild pancreatic fatty atrophy. No evidence of inflammatory change. The adrenal glands are unremarkable. There is no evidence of radiopaque calculus or hydronephrosis. Moderate stool is seen throughout the colon with minimal distal colonic diverticulosis without evidence of diverticulitis. The appendix is not well visualized. There is no significant mesenteric, retroperitoneal, or pelvic sidewall lymph nodes. The aorta is nonaneurysmal. There is no significant atherosclerotic disease appreciated. The solid pelvic viscera are grossly unremarkable. There is no free fluid or free air. The anterior abdominal wall is intact without significant hernias. There is moderate to severe degenerative disc disease with disc height loss and marginal osteophyte formation. There is prior pedicle screw fixation and interbody fusion device placement of the L5-S1 level. Impression: 1. No evidence of hydronephrosis or obstructive uropathy. 2. Moderate stool seen throughout the proximal colon with decompressed appearance of the distal colon likely representing minimal diverticulosis without evidence of diverticulitis. Discharge Plan Discharge Clinical Impression: Back pain, Constipation Patient Disposition: Home, Self-Care Condition: Stable Additional Instructions: Source of your pain is likely from your back. There is no evidence of infection or inflammation noted on your CT or lab work today. You will be sent home with pain medications today-these medications can cause dizziness and increased risk of fall. Do not operate heavy machinery when you are taking these medications. This medication also contains acetaminophen or Tylenol in it. Make sure not to take more than 3000 mg of Tylenol per 24 hours. You also do have evidence of mild constipation on your scan, constipation can be made worse by taking pain medications. Recommend taking daily MiraLax, 1 scoop per day for more regular bowel movements. Follow-up with your primary care provider as scheduled. If your pain becomes worse, you develop fever, you start vomiting or you become lethargic or short of breath you should return to the emergency room right away. Eight tablets of [place] sent to [facility]. Prescriptions: No Action bupropion HCl [Wellbutrin XL] 300 mg tablet extended release 24 hr 300 mg PO QAM Qty: 90 3RF mirtazapine [Remeron] 15 mg tablet 7.5 mg PO QHS Qty: 45 3RF levothyroxine 150 mcg tablet 150 mcg PO DAILY Qty: 90 3RF omeprazole 20 mg capsule,delayed release(DR/EC) 20 mg PO QDAY Qty: 90 3RF montelukast 10 mg tablet 10 mg PO QHS Qty: 90 3RF azelastine 137 mcg (0.1 %) aerosol,spray 2 spray intranasal BID Qty: 30 11RF guaifenesin 600 mg tablet extended release 12hr 600 mg PO .Q.day Qty: 90 3RF melatonin 5 mg capsule 5 mg PO .qhs PRN albuterol sulfate 90 mcg/actuation HFA aerosol inhaler 2 inh inhalation Q3-4H PRN (Reason: shortness of breath or wheezing) Qty: 6.7 4RF clobetasol 0.05 % ointment topical BID estradiol loratadine [Allerclear] 10 mg tablet 10 mg PO DAILY mirtazapine 7.5 mg tablet 7.5 mg PO DAILY omeprazole 20 mg capsule,delayed release(DR/EC) 20 mg PO DAILY simvastatin 20 mg tablet 20 mg PO DAILY calcium Fish Oil melatonin ropinirole 2 mg tablet 2 mg PO .Bedtime Qty: 90 0RF Rx Instructions: take 1 tablet at bedtime simvastatin 20 mg tablet 20 mg PO .Bedtime Qty: 90 0RF Follow Up/Referrals: Delphine Batista MD [Primary Care Provider, Family Practice] Stand Alone Forms: Guide Financial Info Instructions
[2024-09-18 13:48] LABS: Basophils Absolute Auto 0.03 K/uL (0.00-0.30); Basophils Percent Auto 0.3 % (0.0-3.0); Eosinophils Absolute Auto 0.25 K/uL (0.00-0.50); Eosinophils Percent Auto 2.4 % (0.0-7.0); Hematocrit 40.6 % (33.0-51.0); Immature Granulocytes Abs Auto 0.04 K/uL (0.00-0.30); Immature Granulocytes Pct Auto 0.4 %; Lymphocytes Percent Auto 12.1 % (20-44); Mean Corpuscular HGB Conc 32 gm/dL (32-36); Mean Corpuscular Hemoglobin 29 pg (26-34); Mean Corpuscular Volume 91 fL (80-100); Monocytes Percent Auto 9.5 % (0.0-11.0); Neutrophils Percent Auto 75.3 % (42.0-72.0); Platelet Count* 345 K/uL (140-440); RDW Coefficient of Variation % 13.4 % (11.5-15.5); Red Blood Count 4.45 m/uL (4.00-5.20); White Blood Count* 10.26 K/uL (4.50-11.00)
[2024-09-18 13:59] LABS: Slide Review Reflex No
--- NOTE | 2024-09-18 13:59 | CRLHL7_ITS ---
For Patients: As a result of the Century Cures Act, medical imaging exams and procedure reports are released immediately into your electronic medical record. You may view this report before your referring provider. If you have questions, please contact your health care provider. Indication: Right flank pain Technique: Volumetric multidetector CT images of the abdomen and pelvis were without the administration of intravenous contrast. Comparison: None available. Findings: There is demonstration of a pulmonary nodule within the peripheral right lower lobe measuring 8.5 millimeters. Otherwise the lung bases are clear. The liver is normal in attenuation without intrahepatic biliary ductal dilatation. Prior cholecystectomy. Mild reservoir dilatation of the intrahepatic and common bile ducts. The spleen is normal in attenuation and size. Postoperative changes of the stomach status post likely partial gastrectomy with surgical chito seen at the fundus. There is the mild pancreatic fatty atrophy. No evidence of inflammatory change. The adrenal glands are unremarkable. There is no evidence of radiopaque calculus or hydronephrosis. Moderate stool is seen throughout the colon with minimal distal colonic diverticulosis without evidence of diverticulitis. The appendix is not well visualized. There is no significant mesenteric, retroperitoneal, or pelvic sidewall lymph nodes. The aorta is nonaneurysmal. There is no significant atherosclerotic disease appreciated. The solid pelvic viscera are grossly unremarkable. There is no free fluid or free air. The anterior abdominal wall is intact without significant hernias. There is moderate to severe degenerative disc disease with disc height loss and marginal osteophyte formation. There is prior pedicle screw fixation and interbody fusion device placement of the L5-S1 level. Impression: 1. No evidence of hydronephrosis or obstructive uropathy. 2. Moderate stool seen throughout the proximal colon with decompressed appearance of the distal colon likely representing minimal diverticulosis without evidence of diverticulitis. Please note that all CT scans at this facility use dose modulation, iterative reconstruction, and/or weight-based dosing when appropriate to reduce radiation dose to as low as reasonably achievable. Dictated by Rhett Rodriguez MD @ 09/18/2024 2:47:45 PM (Electronically Signed)
[2024-09-18 14:07] LABS: Albumin* 4.1 g/dL (3.3-5.0); Chloride* 99 mmol/L (96-114); Potassium* 4.5 mmol/L (3.6-5.1); Sodium* 135 mmol/L (135-149)
[2024-09-18 14:09] LABS: Blood Urea Nitrogen* 21 mg/dL (7-30); Est. Creatinine Clearance* 46.43; Estimated Glomerular Filt Rate 60 ml/min
[2024-09-18 14:10] LABS: Alanine Aminotransferase* 20 U/L (4-35); Alkaline Phosphatase* 99 U/L (40-150); Anion Gap 5 mEq/L (7-15); Aspartate Amino Transferase* 28 U/L (12-35); Bilirubin Direct* 0.1 mg/dL (0.0-0.5); Bilirubin Total* 0.4 mg/dL (0.1-1.5); Calcium* 9.4 mg/dL (8.4-10.6); Carbon Dioxide* 31 mmol/L (20-32); Glucose* 106 mg/dL (60-115); Lipase* 36 U/L (23-300); Total Protein* 7.3 g/dL (6.0-8.3)
[2024-09-18 14:13] LABS: C Reactive Protein* 1.8 mg/dL (0.5-1.0)
[2024-09-18 14:25] LABS: Appearance Urine Clear (Clear); Bilirubin Urine Negative (Negative); Blood Urine Negative (Negative); Color Urine Yellow (Yellow); Glucose Urine Negative (Negative); Ketones Urine Negative (Negative); Leukocyte Esterase Urine Trace (Negative); Nitrite Urine Negative (Negative); Protein Urine Negative (Negative); Specific Gravity Urine 1.015 (1.000-1.030); Urobilinogen Urine 0.2 (0.2-1.0)
[2024-09-18] MEDS: KETOROLAC 30 MG/ML inj IVP (14:34)
[2024-09-18 14:43] LABS: RBC Urine 0-2 (0-2)
[2024-09-18 15:20] VITALS: BP 148/90; PULSE 69; RESP 18; O2SAT 96
== END 2024-09-18 15:23 | disposition home or self-care (01) ==
PROVIDERS: Emergency Provider Family Medicine; PCP Family Medicine
DX: M54.9 Dorsalgia, unspecified (principal); K59.00 Constipation, unspecified
CPT/HCPCS: 36415; 74176; 80048; 80076; 81001; 83605; 83690; 85025; 86140; 87086; 96374; 99284; J1885